=== PATIENT | male | born 1970 | race Caucasian/White ===

== ENCOUNTER → 2025-06-11 | Outpatient (CLI) | payer OTHER, SELFPAY ==
--- NOTE | 2025-06-11 14:01 | PCM.CR.HP2 ---
CR - History & Physical General Arrival date:: 06/11/25 Arrival time:: 14:01 Date of Referral:: 06/08/25 Date of CR Evaluation:: 06/11/25 Referring Physician: Dr. Avelino Ulloa Primary Diagnosis: S/P AVR History of Present Cardiac Event Onset Date Heart valve replacement or repair:: Yes (04/28/25 onset) Sleep Disorder Evaluation Hx of Sleep Apnea: No Do you snore loudly (louder than talking or can be heard through closed doors)?: No Do you often feel tired/ fatigued/ sleepy during daytime?: No Has anyone observed you stop breathing during sleep?: No History of Hypertension (for STOP score): Yes STOP Results: Negative Advanced Directives Advanced Directives Do you have a Healthcare Power of [employer] Architect?: No Living Will: No Advance Directives Information Provided: No Advance Directives on File: No DNR Order?:: No Past Medical History Covid-19 Screening Physicial Symptoms Other Clinical Concerns Exposure Risk Pertinent Comorbidities Has a serious heart condition:: Yes Social History Smoking History Smoking Status: Never smoker Alcohol Use Alcohol Usage: No Substance Abuse Hx Substance Use: No Occupation Occupation (List type of work in comments):: Employed Hours worked per day:: 9 Social Environment Status Marital Status: Current Living Arrangements Living Environment:: Family Children How many children do you have?: 12 Do any of your children live nearby?: Yes Safety Do you feel safe in your surroundings?: Yes Assistance Do you need any assistance at home?: no Review of Systems Review of Systems Hints Review of Present Symptoms: Reports Shortness of Breath with Exertion, Fatigue, Appetite - Normal and Appetite - Special Diet; Denies Shortness of Breath at Rest, PVD, Operative Discomfort, Angina, Wound Healing, Dizziness/Lightheadedness, Heart Arrhythmia/Irregularities, Sleep - Normal or Sexual Changes Pain Is Patient Pain Free?: Yes Risk Factor Assessment Chief Complaint Chief Complaint: S/P AVR Vital Signs Pulse Ox: 98 Blood Pressure: 160/90 Pulse Pulse Rate: 77 Pulse Rhythm: Regular Hypertension Blood Pressure Sitting - Right Arm: 160/90 Obesity Height: 5 ft 10 in Weight:: 259 lb Weight in Pounds: 259.0 lbs Body Mass Index (BMI): 37.1 Physical Inactivity Physical Inactivity: Reg Exercise 30 min/day Risk Stratification Risk Guidelines: Moderate Risk: Risk Factor for Smoking, Risk Factor for Dyslipidemia, Risk Factor for Diabetes, Risk Factor for Sedentary Lifestyle and Risk Factor for Depression and Highest Risk: Risk Factor for Obesity and Risk Factor for Hypertension For Smoking Smoking Risk Guidelines For Dyslipidemia Dyslipidemia Risk Guidelines For Diabetes Mellitus Diabetes Risk Guidelines For Obesity/Overweight Obesity/Overweight Risk Guidelines For Hypertension Hypertension Risk Guidelines For Sedentary Lifestyle Sedentary Lifestyle Risk Guidelines For Depression Depression Risk Guidelines Motivation Motivation to Participate On a scale of 1 to 10, how prepared are you to commit to attending program?: 8 What do you see as barriers to successfully being able to complete the program?: nothing What do you see as the benefits of succesfully completing the program? In other words, what do you hope to get out of participating in the program?: wants to be back to normal, more energy Are there issues you are dealing with that will interfere with completing the program?: no Do you have a spouse or signficant other, family or friends who will help support you to complete the program?: yes
--- NOTE | 2025-06-11 14:06 | CR.ITP_ITS ---
Diagnosis General Information Admitting Diagnosis: S/P AVR Personal Learning Style:: Audio/Visual Barriers to Learning: No Barriers Stage of change r/t lifestyle modifications:: Contemplation Gave educational material for:: Treating Heart Disease, How The Heart Works, What it means to have Heart Disease, How Coronary Artery Disease is Diagnosed, Heart Procedures, What Heart Medications Do, Risk Factors & Modifications, Livin g an Active Life, Nutrition, Emotions & Heart Disease, Stress Management & Relaxation and Sleep Disorders & Heart Disease Education/Goals Cardiac Rehabilitation Goals Personal Goals: Initial Assessment: Improve energy level, Participate in home exercise program, Get back to work, or to resume activities faster, Improve knowledge of cardiac disease and Improve muscle strength and endurance Scale for measuring improvement of personal goals Diagnosis & Disease Process Outcomes/Goals: Pt IDs own risk factors & lifestyle modifications by Session 10, Verbalizes symptoms of angina & response by session 3., Pt independently manages and Other Additional Outcomes/Goals: Plan/Interventions: Assist Pt to ID & engage in lifestyle modification to reduce CVD risk, Instruct on individual risk factors, Review symptoms of angina & keshawn rgency actions, Review secondary diagnosis & identify educational needs. and Other see comment 30 day Reassessments:: Not Met 30 day Reassessments:: Not Met 30 day Reassessments:: Not Met 30 day Reassessments:: Not Met Final Reassessments:: Not Met Safety Referral to Physical Therapy: No Referral to [facility] Case Management: No Fall Risk Assessed:: Yes Assistive Devices:: None Exercise - Initial Assessment Visit Date of Eval: 06/11/25 (initial eval ) Mets: Pre-: >3 METS for 30 minutes by discharge, >5 METS for 30 minutes by discharge, >7 METS for 30 minutes by discharge and Unable to meet goal due to: (see comment below) Physician Prescribed Exercise Modalities: Treadmill, Schwinn Airdyne AD-7, SciFit Stepper, SciFit Pro-II Ergometer and SciFit Lateral Nuclear Control Room Operator Frequency: 3x/week for 12 weeks [36 sessions] Intensity: 60-80% of age predicted maximum heart rate reserve Duration: 30 - 45 minutes Current METSs:: 3 Target Heart Rate:: 98-122 Resting Blood Pressure: 160/90 EKG Type: SR prolonged AK interval, abnormal T, minmal ST elevation, PVC's Outcomes & Goals Goals:: Verbalizes understanding of THR, RPE & goal METS by session 6, Documents in home exercise log/reports 30 min aerobic 5 day/wk by DC, Demonstrates accurate pulse taking by DC and Other additional outcome/goals: see below Intervention & Plan Exercise Program Goals: Instruct on personal THR & RPE, Instruct on MET level & personal MET goal, Show patient to take own pulse /validate performance until accurate, Instruct on home exercise and Other additional plan/int Physical Activity Home Exercise Physical Activity - Home Exercise: Safe Exercise, Warm-up, Self-monitoring, Cool-Down, Home Exercise > 30 min Daily and Sitting Time <3 hours/daily Outcomes & Goals Outcomes/Goals: Demonstrates correct Warm-up/exercise Cool-Down (S3) if = 2.5 METs, Verbalizes symptoms of exercise intolerance by Session 3 (S3), Demonstrate safe equipment use (S3) & follows exercise prescrition (6) and Other: See below Intervention & Plan Plan/Intervention: Instruct warm-up & cool-down if exercising at > 2 METs, Instruct on symptoms of exercise intolerance & actions to take, Instruct & monitor on saf, Assess intial functional capacity & safety risk and Other See below Nutrition - Initial Assessment Visit Date of Eval: 06/11/25 (initial eval ) Cholesterol/Lipids (Other Core Measures) Determine presence & major risk factors that modify LDL goal: Hypertension or hypertensive medication, Low HDL cholesterol <40 mg/dL*, Family history of premature CHD in Male < 55 years: female <65 yearsFa and Age men > 45 years; women >/= 55 years Outcomes/Goals: Pt IDs own risk factors & lifestyle modifications by Session 10, Verbalizes symptoms of angina & response by session 3., Pt independently manages and Other Additional Outcomes/Goals: Intervention/Plan: Advocate for lipid panel cholesterol medication if applicable, Instruct on personal lipid levels & lipid goals/NCEP guidelines, Instruct on cholesterol and Other additional plan/int Diabetes (Other Core Measures) Diabetes Type: Not Applicable Weight Mgt (Other Care) Height: 5 ft 10 in Weight:: 259 lb BMI: 37.1 Diagnosis Overweight/Obesity BMI> 30% ICD-10 E66: No Diagnosis High BMI/Morbid Obesity BMI> 35% ICD-10 Z68: No Outcomes/Goals: Pt sets, maintains & shows weight loss goal & trend during rehab and Other additional outcomes/goals Intervention/Plan: Instruct on ideal BMI & set weight loss goal w/patient, Assist pt to ID & incorporate diet changes for weight loss by S9, Refer to Structured Weight Loss program as appropriate, Encourage goal of using 250-300d janna per session for weight loss and Other additional plan/interventions Healthy Eating Habits Will attend diet classes:: Yes Outcomes/Goals:: Consume diet rich in vegs,fruits,whole grain/high fiber,fish,lean meat, Limit sat/trans fats,cholesterol & added salts & sugars and Other additional outcome/goals: Intervention/Plan:: Assess current eating habits and Other Additional plan/interventions Education Gave educational materials for:: Signs & symptoms of hypoglycemia, Signs & symptoms of hyperglycemia, Relate diabetes to coronary artery disease and Healthy eating Core - Initial Assessment Visit Date of Eval: 06/11/25 (initial eval) Medication Compliance Preventative Medication(s):: Aspirin, Statin/lipid and Warfarin/Coumadin H/O mental health issues: depression, anxiety, or addiction?: No Doesn?t believe in the benefits of treatment?: No Believes medications are unnecessary or harmful?: No Has a concern about medication side effects?: No Expresses concern over the cost of medications?: No Outcomes/Goals: Verbalizes medications,desired effect & common side effects @ DC, Pt self-reports following medication regimen, Keeps card in wallet w/medications listed by DC and Other additional outcome/goals: Interventions/plans: Instruct on medication effects & side effects, Review medication list w/patient every two weeks, Instruct importance of taking meds as ordered & assist problem solving and Other additional Tobacco Use Tobacco Use: Non-smoker Hypertension Hypertension Diagnosis:: Hypertension ICD-10 I10 Resting Blood Pressure:: 160/90 (Pt is not on meds for HTN) [place] [employer] Hypertension Guidelines Outcomes/Goals: Able to verbalize/achieve optimal blood pressure <130/80, Incorporates diet changes & exercise for blood pressure control by DC and Other additional outcomes/goals Interventions/plan: Instruct on optimal blood pressure, hypertension & medications, Instruct on effects of sodium, alcohol, stress, exercise &hypertension and Other additional plan/interventions Tobacco Cessation Referral Smoking Cessation Referral:: No Individual Education/Counseling:: No Education Schedule Given:: Yes Psychosocial - Initial Assess VIsit Date of Eval: 06/11/25 (initial eval ) History of previous Mental disease:: No Target Goals Target Goals Psychosocial Test Tool Used:: PHQ-9 Questionnaire phq-9 Severity See PHQ-9 Score: 3 Referral to Behavioral Health PS - Interventions: Yes: Attend Stress Management Classes Outcomes/Goals: See list Psychosocial Outcomes/Goals:: ID's personal stressors & 2 strategies to manage stress by discharge and Other Additional outcome/goals: Intervention/Plan: See List Interventions/Plan:: Assess stressors,coping strategies & signs of derpression on admission, Instruct/assist pt to develop coping & personal stress Mgt strategies, Refer to Behavioral Health if appropriate, Refer to Physician if appropriate, Instruct patient to recognize signs & symptoms of depression, Instruct patient to recog and Other additional plan/intervention Comments:: Pt denies any psychosocial issues. Patient Health Questionnaire PHQ-9 Screening Initial Assessment: 1. Little interest or pleasure in doing things: Not at all 2. Feeling down, depressed, or hopeless: Not at all 3. Trouble falling or staying asleep, or sleeping too much: More than half the days 4. Feeling tired or having little energy: Several days 5. Poor appetite or overeating: Not at all 6. Feeling bad about yourself -- or that you are a failure or have let yourself or your family down: Not at all 7. Trouble concentrating on things, such as reading the newspaper or watching television: Not at all 8. Moving or speaking so slowly that other people could have noticed. Or the opposite - being so fidgety or restless that you have been moving around a lot more than usual: Not at all 9. Thoughts that you would be better off , or of hurting yourself in some way: Not at all How difficult have these problems made it for you to do your work, take care of things at home, or get along with other people?: Not difficult at all Total Score: 3 MELQUIADES-Q SV Test Statements CAD is a disease of the arteries in the heart: I Don't Know Examples of risk factors for heart disease: True Angina is chest pain or discomfort: I Don't Know The benefits of resistance training include: True Eating more meat and dairy products: I Don't Know Anti-platelet medications such as aspirin are important: True The only effective way to manage stress: I Don't Know An exercise warm-up slowly increases heart rate: True Prepared, processed foods usually have high sodium: True Depression is common after a heart attack: I Don't Know The statin medications lower cholesterol: I Don't Know To control blood pressure, lower the amount of sodium: I Don't Know If someone gets chest discomfort during walking: False Transfats are partially hydrogenated vegetable oils: I Don't Know Sleep apnea that is not treated increases the risk: True To control cholesterol, one should become a vegetarian: False Someone knows if he/she is exercising at the right level: I Don't Know Diabetes cannot be prevented with exercise & health eating: I Don't Know Stress is a large risk for heart attack: I Don't Know A diet that can help lower blood pressure is rich in: True Total Score Total Correct Responses: 8 Self-Efficacy 6-Item Scale Initial Assessment: We would like to know how confident you are in doing certain activities. Please select your confidence level for: Fatigue Select Number: 3 Physical Discomfort or Pain Select Number: 5 Emotional Distress Select Number: 5 Other Symptoms or Health Problems Select Number: 5 Different Tasks and Activities Select Number: 6 Medication Select Number: 6 Total Score:: 5 Nutrition Survey Nutrition Survey Instructions Scoring Instructions Nutrition Survey Initial: Have you lost >10 lbs over the past 2 months without trying?: No Are you following a special diet at home for diabetes, low fat, or low salt?: No Are you interested in meeting with a dietitian for help understanding your diet?: No Do you eat less than 3 meals a day?: No Do you eat fatty meats (vanegas, sausage, ribs, etc), fried foods, desserts, large amounts of salad dressings, margarine, butter, or cheese most days?: Yes Do you have food allergies? [Enter types in comment field]: No Do you eat in restaurants more than 3 times a week?: No Do you season food with salt, seasoning salt, or garlic salt?: Yes Do you used canned, boxed, frozen meals, or soups, seasoning packets?: Yes Total Score:: 3 Exercise - 30-day Assessment Physician Prescribed Exercise Modalities: Treadmill, Carroll Rodriguez AD-7, SciFit Stepper, SciFit Pro-II Ergometer and SciFit Lateral [place] Exercise - 60-day Assessment Physician Prescribed Exercise Modalities: Treadmill, Maryinn Airdyne AD-7, SciFit Stepper, SciFit Pro-II Ergometer and SciFit Lateral [place] Exercise - 90-day Assessment Physician Prescribed Exercise Modalities: Treadmill, Schwinn Airdyne AD-7, SciFit Stepper, SciFit Pro-II Ergometer and SciFit Lateral [place] Exercise - Final/Discharge Physician Prescribed Exercise Modalities: Treadmill, Schwinn Airdyne AD-7, SciFit Stepper, SciFit Pro-II Ergometer and SciFit Lateral Nuclear Control Room Operator Frequency: 3x/week for 12 weeks [36 sessions] Intensity: 60-80% of age predicted maximum heart rate reserve Current METSs:: 3 Target Heart Rate:: 98-122 Nutrition - 30-Day Assessment Weight Mgt (Other Care) Height: 5 ft 10 in Weight:: 259 lb BMI: 37.1 Nutrition - 60-Day Assessment Weight Mgt (Other Care) Height: 5 ft 10 in Weight:: 259 lb BMI: 37.1 Core - Final Assessment Hypertension Resting Blood Pressure:: 160/90 (Pt is not on meds for HTN) [place] [employer] Hypertension Guidelines Core - 60-Day Assessment Hypertension Resting Blood Pressure:: 160/90 (Pt is not on meds for HTN) [place] [employer] Hypertension Guidelines Psychosocial - 30-Day Assess Target Goals Target Goals Referral to Behavioral Health PS - Interventions: Yes: Attend Stress Management Classes Psychosocial - 60-Day Assess Target Goals Target Goals Referral to Behavioral Health PS - Interventions: Yes: Attend Stress Management Classes Psychosocial - 90-Day Assess Target Goals Target Goals Referral to Behavioral Health PS - Interventions: Yes: Attend Stress Management Classes Psychosocial - Final Assessmen Target Goals Target Goals Psychosocial Test phq-9 Severity See PHQ-9 Score: 3 Referral to Behavioral Health PS - Interventions: Yes: Attend Stress Management Classes Nutrition - 90-Day Assessment Weight Mgt (Other Care) Height: 5 ft 10 in Weight:: 259 lb BMI: 37.1 Nutrition - Final Assessment Weight Mgt (Other Care) Height: 5 ft 10 in Weight:: 259 lb BMI: 37.1
[2025-06-11 14:23] VITALS: BP 160/90; PULSE 77; O2SAT 98
[2025-06-11 15:04] VITALS: BP 160/90; BMI 37.1
[2025-06-11 15:05] VITALS: BMI 37.1
== END | disposition home or self-care (01) ==
PROVIDERS: PCP Physician Assistant
DX: Z95.2 Presence of prosthetic heart valve (principal)

== ENCOUNTER 2025-06-28 14:15 | Outpatient (RCR) | payer OTHER, SELFPAY ==
[2025-06-11 15:04] VITALS: BMI 37.1
== END 2025-07-01 23:59 ==
LOC: CR 14:15
PROVIDERS: PCP Physician Assistant
DX: Z95.2 Presence of prosthetic heart valve (principal)
CPT/HCPCS: 93798

== ENCOUNTER → 2025-08-17 | Outpatient (CLI) | payer SELFPAY, OTHER ==
[2025-06-11 15:04] VITALS: BMI 37.1
--- NOTE | 2025-08-17 07:05 | ECHOD_ITS ---
Reason For Study Reason For Study: CAD/ASHD Procedure This was a 2D Doppler, Color Flow transthoracic echocardiogram. Exam performed in department. Left Ventricle Normal LV size. Mild concentric left ventricular hypertrophy. Left ventricular systolic function is normal. The left ventricular ejection fraction is 55 %. Stage 1 diastolic dysfunction. No regional wall motion abnormalities noted. Right Ventricle Normal RV size. Normal systolic function. Atria The left atrium is mildly enlarged. Normal right atrium. Mitral Valve The mitral valve is structurally normal. No prolapse or stenosis seen. Mild (1+) mitral valve insufficiency. Tricuspid Valve Normal tricuspid valve. Trivial tricuspid valve insufficiency. Unable to estimate RV systolic pressure due to insufficient tricuspid regurgitant envelope. Aortic Valve Peak aortic valve gradient 16 mmHg. Mean aortic valve gradient 9 mmHg. Trivial aortic valve insufficiency. Stable appearing mechanical aortic valve apparatus. Pulmonic Valve Normal pulmonic valve. Great Vessels Normal sized aortic root. Pericardium/Pleural No pericardial effusion. MMode/2D Measurements & Calculations LVIDd: 5.3 cm IVSd: 1.3 cm LVOT diam: 2.1 cm LVIDs: 4.1 cm LVPWd: 1.3 cm LVOT area: 3.6 cm2 RVDd: 3.5 cm FS: 22.7 % Ao root diam: 3.5 cm LAV(MOD-bp): 84.7 ml LVAd ap4: 35.0 cm2 LAV(MOD-bp) Indexed: 36.3 ml/m2 LVLd ap4: 8.4 cm LAV(MOD-sp2): 86.8 ml EDV(MOD-sp4): 121.2 ml LAV(MOD-sp4): 83.6 ml EDV(sp4-el): 123.5 ml LVAs ap4: 22.9 cm2 LVLs ap4: 7.8 cm ESV(MOD-sp4): 59.2 ml ESV(sp4-el): 57.5 ml EF(MOD-sp4): 51.2 % EF(sp4-el): 53.4 % LVAd ap2: 27.9 cm2 SV(MOD-sp4): 62.0 ml SV(MOD-sp2): 43.2 ml LVLd ap2: 8.4 cm SI(MOD-sp4): 26.6 ml/m2 SI(MOD-sp2): 18.5 ml/m2 EDV(MOD-sp2): 79.4 ml EDV(sp2-el): 78.7 ml LVAs ap2: 17.3 cm2 LVLs ap2: 7.1 cm ESV(MOD-sp2): 36.2 ml ESV(sp2-el): 35.8 ml EF(MOD-sp2): 54.4 % SV(sp4-el): 66.0 ml LA dimension(2D): 4.3 cm LA A4 area: 25.1 cm2 RA A4 area: 13.8 cm2 TAPSE: 1.8 cm Time Measurements MV dec time: 0.16 sec Doppler Measurements & Calculations MV E max forest: 83.7 cm/sec Lat Peak E' Forest: 16.4 cm/sec Med Peak E' Forest: 8.2 cm/sec MV A max forest: 50.1 cm/sec E/E' lat: 5.1 E/E' med: 10.2 MV E/A: 1.7 MV V2 max: 96.0 cm/sec MV P1/2t max forest: 97.1 cm/sec Ao V2 max: 199.6 cm/sec MV max P.7 mmHg MV P1/2t: 57.3 msec Ao max P.0 mmHg MV V2 mean: 44.9 cm/sec Ao V2 mean: 137.3 cm/sec MV mean P.0 mmHg MV dec slope: 496.0 cm/sec2 Ao mean P.5 mmHg MV V2 VTI: 24.1 cm MVA(P1/2t): 3.8 cm2 Ao V2 VTI: 38.2 cm AV (velocity ratio): 0.62 MVA(VTI): 3.5 cm2 LITO(I,D): 2.2 cm2 LITO(V,D): 1.8 cm2 LV V1 max: 99.3 cm/sec SV(LVOT): 84.8 ml PA V2 max: 130.3 cm/sec LV V1 max P.0 mmHg PA V2 mean: 93.8 cm/sec LV V1 mean P.3 mmHg LV V1 mean: 71.1 cm/sec LV V1 VTI: 23.8 cm ECHO/Echo Complete Interpretation Summary The left ventricular ejection fraction is 55 %. Stage 1 diastolic dysfunction. Mild concentric left ventricular hypertrophy. The left atrium is mildly enlarged. Mild (1+) mitral valve insufficiency. Stable appearing mechanical aortic valve apparatus. Ordering Physician: Yony Soto Referring Physician: Asher Lewis Performed By: Rachel Castillo, LOUANN, RVT
--- OUTSIDE RECORDS SUMMARY | 2025-08-17 07:24 | XMS RPT_ITS | CCD ---
Author Organization [facility] CliniSysd Care Team Providers Care [place]ian Blind Worker Name Role Phone Asher Jesus PA-C Unavailable Asher Jesus PA-C Unavailable Gogoi (scribe), Hemanta Unavailable Unavaila Kanu Burns MD Unavailable hPilip CARVALHON, Nohelia Unavailable Unavailable Mitra BILLER, Mihaela Unavailable Unavailable Richert UPPER CASER, Apple L Unavailable Unavailab le Flor UPPER CASER, Richelle M Unavailable Unavailab le Scottie UPPER CASER, Stephany Sandoval Unavailable Unavailab le Devin UPPER CASER, Saadia Reid Unavailable Unavaila ble Unavailable Unavailable Unavailable Primary Care Provider UnavailTrina Arenas Unavailable Unavailable Asher Jesus PA-C Primary Care Provider KANU HALEY Consulting Unavailable NELL DUKES DPM Admitting Unavailable NELL DUKES DPM Primary Care Unavailable NELL DUKES DPM Attending Unavailable PROVIDER, UNKNOWN Consulting Unavailable PROVIDER, UNKNOWN Consulting Unavailable PROVIDER, UNKNOWN Consulting Unavailable Kojo PHAM Admitting Unavailable Kojo PHAM Primary Care Unavailable Kojo PHAM Attending Unavailable SHILPA JACKSON MD Admitting Unavailab SHILPA Tsai MD Primary Care Unavailab SHILPA Tsai MD Attending Unavailab CHAD Loyola DO Admitting Unavailable CHAD ROSS DO Primary Care Unavailable CHAD ROSS DO Attending Unavailable Asher Coburn Primary Care Provider PATRICIA ULLOA Attending Provider PATRICIA ULLOA Referring Provider Flavia Solorzano Unavailable Unavailabl e Evert UPPER CASER, Neli Unavailable JADIEL WELLINGTON Admitting Unavailable JADIEL WELLINGTON Attending Unavailable NONE, PCP Referring Unavailable ANN MARIE, LUKE Primary Care Unavailable PATRICIA ULLOA Admitting Unavailable PATRICIA ULLOA Attending Unavailable DISHA MATHEW Unavailable ANN MARIE, LUKE Primary Care Unavailable ZACHARIAH PHAM Attending Unavailable JAYY FRANCIS Attending Unavailable ANN MARIE, LUKE Primary Care Unavailable SHILPA JACKSON Attending Unavailable CHAD HOLCOMB Referring Unavailable ANN MARIE, LUKE Primary Care Unavailable ANN MARIE, LUKE Primary Care Unavailable ZACHARIAH PHAM Attending Unavailable SHILPA JACKSON Admitting Unavailable BITTENBENDERSHILPA Attending Unavailable ANN MARIE, LUKE Primary Care Unavailable ANN MARIE, LUKE Primary Care Unavailable PATRICIA ULLOA Attending Unavailable ANN MARIE, LUKE Primary Care Unavailable PATRICIA ULLOA Attending Unavailable ANN MARIE, LUKE Primary Care Unavailable ANN MARIE, LUKE Primary Care Unavailable PATRICIA ULLOA Referring Unavailable ANN MARIE, LUKE Primary Care Unavailable PATRICIA ULLOA Attending Unavailable ANN MARIE, LUKE Primary Care Unavailable JACEK ALVARADO Attending Unavailable O'SHELL, ADIA Attending Unavailable O'SHELL, ADIA Referring Unavailable ANN MARIE, LUKE Primary Care Unavailable ANN MARIE, LUKE Primary Care Unavailable NELL CARLOS Referring Unavailable ANN MARIE, LUKE Primary Care Unavailable JACEK ALVARADO Attending Unavailable ZACHARIAH PHAM Attending Unavailable ANN MARIE, LUKE Primary Care Unavailable ANN MARIE, LUKE Primary Care Unavailable ZACHARIAH PHAM Attending Unavailable ANN MARIE, LUKE Primary Care Unavailable ZACHARIAH PHAM Attending Unavailable ZACHARIAH PHAM Referring Unavailable ANN MARIE, LUKE Primary Care Unavailable ZACHARIAH PHAM Attending Unavailable Brenda MALHOTRA, Emma Aguilar Unavailable Unavaila ble Asher Coburn Primary Care Provider [phone] Asher Coburn Referring Provider Dr. Yony Soto MD Attending Provider Yony Soto Attending Unavailable Ann Marie, Luparish Referring Unavailable Ann Marie, Luke Primary Care Unavailable YING, ISSA Referring Unavailable YING ISSA Attending Unavailable Ann Marie, Luke Primary Care Unavailable YING, ISSA Referring Unavailable ISSA HE Attending Unavailable Asher Jesus Primary Care Unavailable Asher Jesus Primary Care Unavailable Yony Soto Referring Unavailable Yony Soto Attending Unavailable ISSA HE Referring Unavailable ISSA HE Attending Unavailable Asher Jesus Primary Care Unavailable Allergies Allergy Classification Reported Allergen(s) Allergy Type Date of Onset Reaction(s) Facility (19 sources) HYDROcodone Drug Allergy 04-21-2025 [facility] Medications Current Medications Medication Drug Class(es) Dates Sig (Normalized) Sig (Original) acetaminophen 500 mg oral tablet (13 sources) Start: 05-03-2025 End: 05-18-2025 take 2 tablets by mouth every eight hours as needed for pain acetaminophen (Tylenol) 500 MG tablet Take 2 tablets (1,000 mg) by mouth every 8 hours as needed for moderate pain (4-6) for up to 10 days. 05/03/2025 05/18/2025 Active Start: 04-28-2025 End: 05-03-2025 take 1 tablet by mouth every eight hours 1,000 mg, Oral, Every 8 hours, First dose on Sat04/28/25 at 1315, [facility] Start: 03-04-2025 End: 03-06-2025 take 1 tablet by mouth every six hours as needed for pain and fever acetaminophen (Tylenol) tablet 650 mg aspirin 81 mg delayed release oral tablet (20 sources) Platelet Aggregation Inhibitor, Nonsteroidal Anti-inflammatory Drug Start: 07-19-2025 take 1 tablet by mouth once daily Aspirin (Adult Aspirin Regimen) 81 mg tablet,delayed release (DR/EC) Active 81 mg PO daily July 19, 2025 12:00am Start: 04-29-2025 End: 05-03-2025 take 81 mg by mouth once daily 81 mg, Oral, Daily, Fir st dose on Sat04/29/25 at 0900, Recovery [facility], Do not crush, chew, or split. Start: 03-05-2025 End: 03-07-2026 aspirin 81 MG chewable table t Chew 1 tablet (81 mg) daily. Do not start before March 07, 2025. 30 tablet 11 03/07/2025 03/07/2026 Active take 1 mg by mouth once daily As pirin 81 MG Oral Tablet ; daily (81 MG) atorvastatin 40 mg oral tablet (20 sources) HMG-CoA Reductase Inhibitor Start: 05-06-2025 End: 08-04-2025 take 1 tablet by mouth once daily atorvastatin (Lipitor) 80 MG tablet Take 1 tablet (80 mg) by mouth daily. 30 tablet 2 05/06/2025 08/04/2025 Active Start: 05-03-2025 End: 05-18-2025 take 2 tablets by mouth once daily atorvastatin (Lipitor) 40 MG tablet Take 2 tablets (80 mg) by mouth daily. 05/03/2025 05/18/2025 Discontinued (Therapy completed) Start: 04-29-2025 End: 05-03-2025 take 80 mg by mouth once daily 80 mg, Oral, Nightly, F irst dose on Marlys 04/29/25 at 2100, [facility] On Unit Start: 03-04-2025 End: 03-07-2026 take 1 tablet by mouth once daily Atorvastatin (Lipitor) 40 mg tablet Active 40 mg PO daily July 19, 2025 12:00am hydroCHLOROthiazide 12.5 mg / losartan potassium 50 mg oral tablet (1 source) Thiazide Diuretic, Angiotensin 2 Receptor Caesar Start: 07-27-2025 Losartan-Hydrochlorothiazide 50-12.5 mg tablet Active 1 {tbl} PO daily 30 July 27, 2025 12:00am melatonin 5 mg oral tablet (14 sources) Start: 05-15-2025 End: 07-14-2025 take 1 tablet by mouth once daily as needed melatonin 5 MG tablet Take 1 tablet (5 mg) by mouth Nightly as needed (trouble sleeping). 30 tablet 1 05/15/2025 07/14/2025 Active Start: 04-29-2025 End: 05-03-2025 take 5 mg by mouth once daily 5 mg, Oral, Nightly, Fir st dose (after last modification) on Marlys 04/29/25 at 2100 warfarin sodium 3 mg oral tablet (20 sources) Vitamin K Antagonist Start: 07-27-2025 take 1 mg by mouth once daily Warfarin 3 mg tablet Active mg PO DAILY July 27, 2025 12:00am Start: 05-18-2025 warfarin (Coum boyd) 3 MG tablet Take as directed by [facility] (105 tablets= 90 day supply). Current dose: 4.5 mg every Sat, Sat; 3 mg all other days 105 tablet 1 05/18/2025 Active Start: 05-03-2025 End: 05-03-2025 3 mg, Oral, Once Warfarin, O n 05/03/25 at 1700, For 1 dose Start: 05-03-2025 End: 05-18-2025 warfarin (Coumadin) 3 MG tab let Take as directed per After Visit Summary. 30 tablet 05/03/2025 11:08 AM EDT 05/03/2025 05/18/2025 Discontinued (Reorder) Start: 05-02-2025 3 mg, Oral, On ce Warfarin, On 05/02/25 at 1700, For 1 dose Start: 05-01-2025 5 mg, Oral, On ce Warfarin, On 05/01/25 at 1700, For 1 dose Start: 04-30-2025 3 mg, Oral, On ce Warfarin, On 04/30/25 at 1700, For 1 dose Start: 04-29-2025 3 mg, Oral, On ce Warfarin, On Marlys 04/29/25 at 1700, For 1 dose, Recovery [facility] On Unit Completed/Discontinued Medications Medication Drug Class(es) Dates Sig (Normalized) Sig (Original) 20 ml albumin human, fci 250 mg/ml injection (4 sources) Human Serum Albumin Start: 04-28-2025 End: 04-29-2025 25 g, IntraVENous, at 400 mL/hr, Once, On 04/28/25 at 1715, For 1 dose, Infusion rate depends on indication and clinical situation. In emergencies, may administer as rapidly as necessary to improve clinical condition. After initial volume replacement: 25%: Do not exceed 1 mL/minute (60 mL/hr) in patients with normal plasma volume; 2 to 3 mL/minute (120 to 180 mL/hr) in patients with hypoproteinemia Start: 04-28-2025 End: 05-03-2025 albuterol 0.833 mg/ml / ipratropium bromide 0.167 mg/ml inhalation solution (2 sources) Anticholinergic, beta2-Adrenergic Agonist Start: 04-28-2025 End: 05-03-2025 ALPRAZolam 0.25 mg disintegrating oral tablet (2 sources) Benzodiazepine Start: 04-28-2025 End: 04-28-2025 0.25 mg, Oral, PRN, anxiety, Starting on Sat04/28/25 at 0540, For 1 dose, Preprocedure amiodarone hydrochloride 200 mg oral tablet (20 sources) Antiarrhythmic Start: 05-03-2025 End: 07-16-2025 take 2 tablets by mouth twice daily, then take 1 tablet by mouth once daily amiodarone (Pacerone) 200 MG tablet Take 2 tablets (400 mg) by mouth 2 times daily for 14 days, THEN 1 tablet (200 mg) daily. 116 tablet 05/03/2025 11:08 AM EDT 05/03/2025 06/18/2025 Discontinued Start: 05-02-2025 End: 05-03-2025 take 400 mg by mouth twice daily 400 mg, Oral, 2 times daily, First dose on Sat05/02/25 at 2100, For 14 days Start: 04-30-2025 End: 05-02-2025 0.5 mg/min (16.6667 mL/hr, r ounded to 16.67 mL/hr), IntraVENous, Continuous, Starting on Sat04/30/25 at 0800, Use in-line filter. Use in-line filter. Give through central venous catheter whenever available. Premix Start: 04-30-2025 End: 04-30-2025 150 mg, IntraVENous, Adminis ter over 10 Minutes, Once, On Sat04/30/25 at 0800, For 1 dose, Use in-line filter. Administer through central venous catheter whenever available. Premix amoxicillin 500 mg oral capsule (16 sources) Penicillin-class Antibacterial Start: 12-14-2019 End: 12-24-2019 take 1 capsule by mouth three times daily Amoxicillin 500 MG Oral Capsule ; 1 (one) Capsule three times daily for 10 days Quantity: 30 {Capsule} Refills: 0 Ordered: 14-Dec-2019 MD Kanu Haley Start: 14-Dec-2019 End: 24-Dec-2019 Status: Inactive bisacodyl 10 mg rectal suppository (2 sources) Stimulant Laxative Start: 03-04-2025 End: 03-06-2025 take 10 mg rectal route every twenty-four hours as needed for constipation 10 mg, Rectal, Daily PRN, constipation, Starting on Marlys 4/3/25 at 0955, 2nd line for treatment of constipation - give scheduled (in addition to 1st line agent) if no bowel movement in past 48 hours calcium chloride 0.0014 meq/ml / potassium chloride 0.004 meq/ml / sodium chloride 0.103 meq/ml / sodium lactate 0.028 meq/ml injectable solution (6 sources) Start: 04-28-2025 End: 04-28-2025 500 mL, IntraVENous, at 250 mL/hr, Administer over 2 Hours, Once, On Sat04/28/25 at 1715, For 1 dose Start: 04-28-2025 End: 05-03-2025 100 ml calcium gluconate 20 mg/ml injection (2 sources) Start: 04-28-2025 End: 05-03-2025 ceFAZolin (Ancef) 2,000 mg in sodium chloride 0.9 % 100 mL IVPB (2 sources) Start: 04-28-2025 End: 04-30-2025 take 2000 mg intravenously every eight hours 2,000 mg, IntraVENous, at 200 mL/hr, Administer over 30 Minutes, Every 8 hours, First dose on Sat04/28/25 at 2000, For 5 doses, Recovery [facility] On Unit, Mini-Bag Plus bag, Suspected Indication (Select all that apply): Surgical Prophylaxis Chlorhexidine (10 sources) Start: 04-29-2025 End: 05-03-2025 apply 1 dose topically once daily Topical, Daily, First dose on Sat04/29/25 at 1400, Recovery [facility] On Unit Start: 04-28-2025 End: 04-29-2025 take 15 mL by mouth twice daily 15 mL, Mouth/Throat, 2 times daily, First dose on Sat04/28/25 at 1315, For 7 days, Recovery [facility] On Unit, Rinse and spit. Do not swallow. Start: 04-28-2025 End: 04-28-2025 15 mL, Mouth/Throat, Once, O n Sat04/28/25 at 0545, For 1 dose, Preprocedure, Rinse and spit. Do not swallow. Start: 04-16-2025 End: 04-16-2025 chlorhexidine (Peridex) 0.12 % solution Use 15 mL in the mouth or throat Once for 1 dose. Swish for 30 seconds and spit out the night before surgery. Do not swallow. 15 mL 04/16/2025 04/16/2025 Active End: 05-03-2025 take 15 mL by mouth once chlorhexidine (Peridex) 0.12 % solution Use 15 mL in the mouth or throat 1 time. 05/03/2025 Discontinued (Stop taking at discharge) cholecalciferol 9.52 unt/ml / glucose 357 mg/ml oral gel (2 sources) Vitamin D Start: 04-28-2025 End: 05-03-2025 clopidogrel 75 mg oral tablet (20 sources) P2Y12 Platelet Inhibitor Start: 07-19-2025 End: 07-27-2025 take 1 tablet by mouth once daily Clopidogrel 75 mg tablet Discontinued 75 mg PO daily July 19, 2025 12:00am July 27, 2025 2:47pm Start: 03-05-2025 End: 04-01-2025 clopidogrel (Plavix) 75 MG t ablet Take 1 tablet (75 mg) by mouth daily for 19 days. Do not start before March 07, 2025. 19 tablet 03/07/2025 04/01/2025 Discontinued docusate sodium 50 mg / sennosides, fci 8.6 mg oral tablet (2 sources) Start: 04-28-2025 End: 05-03-2025 take 2 tablets by mouth once daily for constipation 2 tablet, Oral, Nightly, First dose on Sat04/28/25 at 2100, Recovery [facility] On Unit, Bowel Regimen - for prevention of constipation. 0.4 ml enoxaparin sodium 100 mg/ml prefilled syringe (4 sources) Low Molecular Weight Heparin Start: 04-30-2025 End: 05-03-2025 inject 40 mg by subcutaneous injection every twenty-four hours 40 mg, SubCUTAneous, Every 24 hours scheduled (Daily), First dose on Sat04/30/25 at 0900, Indication of Use: Prophylaxis-DVT/PE, Indications: Prophylaxis of Venous Thromboembolism Start: 03-05-2025 End: 03-06-2025 inject 40 mg by subcutaneous injection every twenty-four hours 40 mg, SubCUTAneous, Every 24 hours scheduled (Daily), First dose on Sat03/05/25 at 1115, Indication of Use: Prophylaxis-DVT/PE, Indications: Prophylaxis of Venous Thromboembolism furosemide 40 mg oral tablet (12 sources) Loop Diuretic Start: 05-03-2025 End: 05-18-2025 take 1 tablet by mouth once daily furosemide (Lasix) 40 MG tablet Take 1 tablet (40 mg) by mouth daily for 5 days. 5 tablet 05/03/2025 11:08 AM EDT 05/03/2025 05/18/2025 Discontinued (Therapy completed) Start: 05-01-2025 End: 05-03-2025 40 mg, IntraVENous, Daily, F irst dose on 05/01/25 at 0930 glucagon (rdna) 1 mg injecti on (2 sources) Antihypoglycemic Agent Start: 04-28-2025 End: 05-03-2025 50 ml glucose 50 mg/ml injec tion (4 sources) Start: 04-28-2025 End: 05-03-2025 Start: 04-28-2025 End: 05-03-2025 1 ml hydrALAZINE hydrochloride 20 mg/ml injection (2 sources) Arteriolar Vasodilator Start: 03-04-2025 End: 03-06-2025 10 mg, IntraVENous, Every 1 hour PRN, high blood pressure, Starting on Marlys 03/04/25 at 0956, During or Post thrombolytic agent administration: For SBP GREATER than 180 or DBP GREATER than 105. Give over 2 minutes. Second line. hydroCHLOROthiazide 12.5 mg oral tablet (20 sources) Thiazide Diuretic Start: 07-10-2021 End: 03-11-2025 hydroCHLOROthiazide 12.5 mg tablet ; 1 (one) Tablet daily in the morning for 0 days Quantity: 90 {Tablet} Refills: 3 Ordered: 11-Mar-2025 CAROLEE Villa Start: 10-Jul-2021 End: 11-Mar-2025 Status: Inactive Comments: future fill Start: 08-30-2011 End: 09-18-2013 take 1 tablet by mouth once daily HYDROCHLOROTHIAZIDE, 25MG (Oral Tablet) ; 1 Tablet daily for 0 days Quantity: 90 {Tablet} Refills: 1 Ordered: 18-Sep-2013 BLANCA Beltran Start: 30-Aug-2011 End: 18-Sep-2013 Status: Inactive Comment on above: future fill 100 ml insulin, regular, human 1 unt/ml injection (2 sources) Insulin Start: End: take 0.5-50 [IU] intravenously every hour, then take 0.5-50 mL intravenously every hour 0.5-50 Units/hr (0.5-50 mL/hr), IntraVENous, Continuous, Starting on Sat04/28/25 at 1315, Recovery [facility] On Unit, As guided by calculator flowsheet Low target: 120 High target: 160 Hold insulin infusion if BS labetalol hydrochloride 5 mg/ml injectable solution (2 sources) beta-Adrenergic Caesar Start: End: 10 mg, IntraVENous, Every 10 min PRN, high blood pressure, Starting on Marlys 03/04/25 at 0956, During or Post thrombolytic agent administration: For SBP GREATER than 180 or DBP GREATER than 105. Give over 1-2 minutes. If HR LESS than 65 use second option, hydralazine order. lidocaine 0.04 mg/mg medicated patch (2 sources) Antiarrhythmic, Amide Local Anesthetic Start: End: 1 patch, Topical, Administer over 12 Hours, Daily, First dose on Sat04/28/25 at 1315, Recovery & On Unit, Cut in half and place on both sides of the incision. Patch may remain in place for up to 12 hours in any 24 hour period. lisinopril 20 mg oral tablet (16 sources) Angiotensin Converting Enzyme Inhibitor Start: End: take 1 tablet by mouth once daily in the evening Lisinopril 20 MG Oral Tablet ; 1 (one) Tablet daily in the evening for 0 days Quantity: 90 {Tablet} Refills: 3 Ordered: 27-Apr-2021 BLANCA Palacios Start: 30-Sep-2020 End: 27-Apr-2021 Status: Discontinued LORazepam 0.5 mg oral tablet (4 sources) Benzodiazepine Start: End: take 0.5 mg by mouth once 0.5 mg, Oral, Once, On Marlys 04/29/25 at 0030, For 1 dose Start: 03-04-2025 End: 03-05-2025 1 mg, IntraVENous, Once PRN, anxiety, Starting on Marlys 03/04/25 at 1050, For 1 dose, Prior to MRI For IV doses dilute dose with 1ml NS. magnesium hydroxide 80 mg/ml oral suspension (2 sources) Start: 04-28-2025 End: 05-03-2025 take 30 mL by mouth every twenty-four hours as needed for constipation magnesium sulfate IVPB premix 2,000 mg (2 sources) Start: 04-28-2025 End: 05-03-2025 magnesium sulfate IVPB premix 2,000 mg morphine injection 2 mg (2 sources) Start: 04-28-2025 End: 05-03-2025 morphine injection 2 mg mupirocin 0.02 mg/mg topical ointment (13 sources) RNA Synthetase Inhibitor Antibacterial Start: 04-28-2025 End: 05-02-2025 Nasal, 2 times daily, First dose on Sat04/28/25 at 1315, For 4 days, Recovery [facility] On Unit Start: 04-28-2025 End: 04-28-2025 take 1 dose nasal route once Nasal, Once, On Sat at 0545, For 1 dose, Preprocedure, Apply liberal amount per nostril the morning of surgery using a q-tip. Do not totally occlude either nostril. Start: 04-16-2025 End: 05-03-2025 mupirocin (Bactroban) 2 % oi ntment Apply liberal amount per nostril the night before surgery and then again the morning of surgery 1 g 04/16/2025 05/03/2025 Discontinued (Stop taking at discharge) Start: 03-04-2025 End: 03-06-2025 1 Application, Nasal, 2 time s daily, First dose on Sat03/04/25 at 1000, For 5 days, Indications: MRSA Nasal Decolonization 1 ml naloxone hydrochloride 0.4 mg/ml injection (2 sources) Opioid Antagonist Start: 04-28-2025 End: 05-03-2025 0.4 mg, IntraVENous, Every 5 min PRN, opioid reversal, respiratory depression, Starting on Sat04/28/25 at 1704, +++ For RR ondansetron ODT (Zofran-ODT) disintegrating tablet 4 mg (4 sources) Start: 04-28-2025 End: 05-03-2025 take 1 tablet by mouth every eight hours as needed for nausea and vomiting ondansetron ODT (Zofran-ODT) disintegrating tablet 4 mg Start: 03-04-2025 End: 03-06-2025 take 1 tablet by mouth every eight hours as needed for nausea and vomiting ondansetron ODT (Zofran-ODT) disintegrating tablet 4 mg oxyCODONE hydrochloride 5 mg oral tablet (8 sources) Opioid Agonist Start: 05-03-2025 End: 05-18-2025 take 1 tablet by mouth every six hours as needed for pain oxyCODONE (Roxicodone) 5 MG immediate release tablet Indications: Aortic stenosis, severe , Post-op pain Take 1 tablet (5 mg) by mouth every 6 hours as needed for severe pain (7-10) (acute post surgical pain) for up to 5 days. 20 tablet 05/03/2025 11:08 AM EDT 05/03/2025 05/18/2025 Discontinued (Therapy completed) Start: 04-28-2025 End: 05-03-2025 take 1 tablet by mouth every four hours as needed for pain oxyCODONE (Roxicodone) immediate release tablet 5 mg pantoprazole 40 mg delayed release oral tablet (2 sources) Proton Pump Inhibitor Start: 04-30-2025 End: 05-03-2025 take 40 mg by mouth once daily before breakfast 40 mg, Oral, Daily before breakfast, First dose on Sat04/30/25 at 0600, Recovery & On Unit, Do not crush, chew, or split. pantoprazole (ProtoNix) 40 mg in sodium chloride (PF) 0.9 % 10 mL injection (2 sources) Start: 04-29-2025 End: 04-29-2025 40 mg, IntraVENous, Administer over 2 Minutes, Daily, First dose on Marlys 04/29/25 at 0600, Recovery & On Unit, Reconstitute with 10 mL 0.9 % sodium chloride and administer over at least 2 minutes. polyethylene glycol [id number] [id number] mg powder for oral solution (4 sources) Osmotic Laxative Start: 04-28-2025 End: 05-03-2025 17 g, Oral, Daily, First dose on Sat04/28/25 at 1315, Recovery & On Unit, Bowel Regimen - for prevention of constipation. Start: 03-04-2025 End: 03-06-2025 take 17 g by mouth every twenty-four hours as needed for constipation 17 g, Oral, Daily PRN, constipation, Starting on Sat03/04/25 at 0955, 1st line for treatment of constipation - give scheduled if no bowel movement in past 24 hours. microencapsulated potassium chloride 20 meq extended release oral tablet (10 sources) Start: 05-03-2025 End: 05-18-2025 take 1 tablet by mouth once daily potassium chloride CR (Klor-Con M20) 20 MEQ ER tablet Take 1 tablet (20 mEq) by mouth daily for 5 days. Do not crush or chew. 5 tablet 05/03/2025 11:08 AM EDT 05/03/2025 05/18/2025 Discontinued (Therapy completed) Start: 04-29-2025 End: 05-03-2025 20 mEq, Oral, PRN, Hypokalem ia, Starting on Sat04/29/25 at 0000, Recovery & On Unit, If patient is intubated or not tolerating PO use PRN IV replacement protocol Potassium level Dose LESS than 3.0 = Give 20 mEq x 3 doses 3.0-3.6 = Give 20 mEq x 2 doses Recheck potassium level 2 hour after replacement given, place order for lab under [place] If potassium level LESS than 3 after 1st replacement: Call surgeon. Do not crush or break. Do not crush or chew. Start: 04-28-2025 End: 05-03-2025 potassium chloride IVPB 20 m Eq 100 ml propofol 10 mg/ml injection (2 sources) General Anesthetic Start: 04-28-2025 End: 04-29-2025 5-50 mcg/kg/min 118 kg (3.54-35.4 mL/hr), IntraVENous, Continuous, Starting on Sat04/28/25 at 1315, Recovery & On Unit, Instructions If RASS 1 point below goal - decrease dose by 5mcg/kg/min no faster than every 5 min If RASS 2 points below goal- decrease dose by 10mcg/kg/min no faster than every 5 min If RASS at goal, continue current dose If RASS 2 or more points above goal - increase dose by 10mcg/kg/min no faster than every 5 min If RASS 1 point above goal - increase dosee by 5mcg/kg/min no faster than every 5 min If after titration rate change patient exhibits adverse hemodynamic response, next titration rate change may be adjusted by one-half of the previous rate change If patient fails sedation interruption, resume propofol titration at 50% of previous rate General Anesthetic - do not give without appropriate ventilation support. Do not administer propofol in same IV catheter as blood or plasma. Discard any unused portion of propofol vials and tubing after 12 hours., Titrate Infusion? Yes, Initial Infusion Dose: 30 mcg/kg/min, Goal of Therapy: RASS of -1 to 0, Contact Provider if: Patient is receiving maximum dose and is not achieving the goal of therapy sildenafil 50 mg oral tablet (16 sources) Phosphodiesterase 5 Inhibitor Start: 09-30-2020 End: 03-11-2025 sildenafiL 50 mg tablet ; 1 (one) Tablet 1 HOUR PRIOR TO INTERCOURSE for 0 days Quantity: 30 {Tablet} Refills: 3 Ordered: 11-Mar-2025 CAROLEE Villa Trian Start: 30-Sep-2020 End: 11-Mar-2025 Status: Inactive Comments: Good Rx Comment on above: Good Rx 5 ml sodium chloride 9 mg/ml injection (14 sources) Start: 04-28-2025 End: 04-30-2025 take 20 mL intravenously every hour 20 mL/hr, IntraVENous, Continuous, Starting on Sat04/28/25 at 1315, Recovery & On Unit, 20 ml/hr to SP(introducer) and WT on Grassflat Mark Catheter; once Grassflat discontinued run at 20 ml/hr through SP(introducer) Start: 04-28-2025 End: 05-03-2025 take 5-40 mL intraluminal route every eight hours 5-40 mL, IntraCATHeter, Every 8 hours, First dose on Sat04/28/25 at 1315, Recovery & On Unit, For Line Patency: Peripheral IV = 5 mL; Midline or Central Line = 10 mL/lumen. If following IV push medication, administer flush at same rate as the IV push. Flush volume is determined by type of infusion therapy being given. For non-viscous solutions use: Peripheral IV = 5 mL Midline or Central Line = 10 mL/lumen For viscous solutions (i.e. blood components, parenteral nutrition, contrast media, or after obtaining blood sample) use: Peripheral IV = 10 mL Midline or Central Line = 20 mL/lumen Start: 04-28-2025 End: 05-03-2025 Start: 04-28-2025 End: 04-28-2025 take 50 mL intravenously every hour 50 mL/hr, IntraVENous, Continuous, Starting on Sat04/28/25 at 0545, Preprocedure, Upon admission to sameday - please start iv if patient does not have iv access. Start: 04-06-2025 End: 04-06-2025 take 5-40 mL intravenously every twelve hours 5-40 mL, IntraVENous, Every 12 hours, First dose on Sat04/06/25 at 0900, Preprocedure, For Line Patency: Peripheral IV = 5 mL; Midline or Central Line = 10 mL/lumen. If following IV push medication, administer flush at same rate as the IV push. Flush volume is determined by type of infusion therapy being given. For non-viscous solutions use: Peripheral IV = 5 mL Midline or Central Line = 10 mL/lumen For viscous solutions (i.e. blood components, parenteral nutrition, contrast media, or after obtaining blood sample) use: Peripheral IV = 10 mL Midline or Central Line = 20 mL/lumen Start: 04-06-2025 End: 04-06-2025 5-40 mL, IntraVENous, PRN, l ine care, After every IV line use, Starting on Sat04/06/25 at 0846, Preprocedure, For Line Patency: Peripheral IV = 5 mL; Midline or Central Line = 10 mL/lumen. If following IV push medication, administer flush at same rate as the IV push. Flush volume is determined by type of infusion therapy being given. For non-viscous solutions use: Peripheral IV = 5 mL Midline or Central Line = 10 mL/lumen For viscous solutions (i.e. blood components, parenteral nutrition, contrast media, or after obtaining blood sample) use: Peripheral IV = 10 mL Midline or Central Line = 20 mL/lumen Start: 03-04-2025 End: 03-05-2025 take 75 mL intravenously every hour 75 mL/hr, IntraVENous, Continuous, Starting on Sat03/04/25 at 1000 5 ml sugammadex 100 mg/ml injection (2 sources) Start: 04-28-2025 End: 04-28-2025 470 mg (rounded from 472 mg = 4 mg/kg 118 kg), IntraVENous, Once, On Sat04/28/25 at 1315, For 1 dose, Recovery & On Unit traZODone hydrochloride 50 mg oral tablet (2 sources) Serotonin Reuptake Inhibitor Start: 05-01-2025 End: 05-03-2025 take 50 mg by mouth once daily 50 mg, Oral, Nightly, First dose on 05/01/25 at 2100 Problems Active Problems Problem Classification Problem Date Documented Date Episodic/Chronic Abdominal pain (20 sources) Lower abdominal pain; Translations: [Lower abdominal pain, unspecified] 06-07-2022 Episodic Comment on above: resolving today Acute cerebrovascular disease (20 sources) Cerebrovascular accident; Translations: [Cerebral infarction, unspecified] Onset: 03-04-2025 03-04-2025 Chronic Cardiac and circulatory congenital anomalies (6 sources) Bicuspid aortic valve; Translations: [Bicuspid aortic valve] Onset: 06-18-2025 05-24-2025 Chronic Cardiac and circulatory congenital anomalies (3 sources) Personal history of (corrected) congenital malformations of heart and circulatory system; Translations: [Personal history of (corrected) congenital malformations of heart and circulatory system] Onset: 06-18-2025 05-24-2025 Episodic Cardiac dysrhythmias (20 sources) Cardiac dysrhythmia, unspecified; Translations: [Paroxysmal atrial fibrillation] Onset: 06-18-2025 06-07-2022 Chronic Cardiac dysrhythmias (20 sources) Palpitations; Translations: [Palpitations] 06-07-2022 Episodic Complications of surgical procedures or medical care (1 source) Atrial fibrillation; Translations: [Other postprocedural complications and disorders of the circulatory system, not elsewhere classified] 06-18-2025 Episodic Congestive heart failure; nonhypertensive (5 sources) Chronic diastolic heart failure; Translations: [Chronic diastolic (congestive) heart failure] Onset: 04-15-2025 04-15-2025 Chronic Coronary atherosclerosis and other heart disease (7 sources) Coronary arteriosclerosis; Translations: [Atherosclerotic heart disease of [place] coronary artery without angina pectoris] Onset: 06-18-2025 05-24-2025 Chronic Disorders of lipid metabolism (20 sources) Hyperlipidemia; Translations: [Other hyperlipidemia] Onset: 03-30-2025 03-30-2025 Chronic Essential hypertension (20 sources) Hypertensive disorder; Translations: [Essential (primary) hypertension] Onset: 03-30-2025 06-07-2022 Chronic Heart valve disorders (20 sources) Aortic valve stenosis; Translations: [Nonrheumatic aortic (valve) stenosis] Onset: 03-30-2025 06-07-2022 Chronic Comment on above: valve area 1.5 Heart valve disorders (20 sources) Heart murmur; Translations: [Cardiac murmur, unspecified] 06-07-2022 Episodic Immunizations and screening for infectious disease (20 sources) Needs influenza immunization; Translations: [Encounter for immunization] 09-30-2020 Episodic Mycoses (20 sources) Tinea corporis; Translations: [Tinea corporis] 06-07-2022 Episodic Nonspecific chest pain (20 sources) Chest pain; Translations: [Chest pain, unspecified] 06-07-2022 Episodic Other aftercare (20 sources) Post-discharge follow-up; Translations: [Encounter for follow-up examination after completed treatment for conditions other than malignant neoplasm] 03-11-2025 Episodic Other aftercare (16 sources) Long-term current use of anticoagulant; Translations: [intermediate (current) use of anticoagulants] 07-20-2025 Episodic Other and ill-defined cerebrovascular disease (14 sources) Cerebral ischemia; Translations: [Transient cerebral ischemic attack, unspecified] 03-12-2025 Chronic Other connective tissue disease (20 sources) Plantar fasciitis of left foot; Translations: [Plantar fascial fibromatosis] 06-07-2022 Episodic Other male genital disorders (20 sources) Male erectile dysfunction, unspecified; Translations: [Impotence of organic origin] 06-07-2022 Chronic Other nervous system disorders (2 sources) Postoperative pain ; Translations: [Other acute postprocedural pain] 05-03-2025 Episodic Other nervous system disorders (2 sources) Other acute postprocedural pain; Translations: [Other acute postprocedural pain] Onset: 04-28-2025 Episodic Other nutritional; endocrine; and metabolic disorders (20 sources) Obesity; Translations: [Obesity, unspecified] 06-07-2022 Chronic Other nutritional; endocrine; and metabolic disorders (20 sources) Morbid obesity; Translations: [Morbid (severe) obesity due to excess calories] 03-11-2025 Chronic Other upper respiratory infections (20 sources) Acute pharyngitis; Translations: [Acute pharyngitis, unspecified] 12-14-2019 Episodic Transient cerebral ischemia (2 sources) Transient cerebral ischemic attack, unspecified; Translations: [Transient cerebral ischemic attack, unspecified] Onset: 03-30-2025 Chronic Unclassified (16 sources) [facility] Routine follow-up - The patient is here for follow-up of hyperlipidemia, obesity and ED. The patient always takes the prescribed medications. No side effects noted. (pt quit taking lisinopril due to cough) The patient has an active lifestyle but no regular program (walks dailypt also bikes to work). The patient's out of office blood pressure checks occur frequently (has readings) and dietary compliance is fairly good usually adhering to recommendations (pt tries to eat healthy). The patient states that there is no recent angina or dyspnea, weight has increased (up 3 lbs) and they do not have headaches. Note for Routine chronic follow-up: NIGEL 09/30/20last labs 09/2013 bmp/tsh 04-27-2021 Unclassified (16 sources) [facility] Routine follow-up - The patient is here for follow-up of hypertension and obesity. The patient always takes the prescribed medications. No side effects noted. The patient engages in regular program 3-5 time(s) per week (bikes to work every am). The patient's out of office blood pressure checks occur frequently (reading on chart) and dietary compliance is fairly good usually adhering to recommendations (eats healthy at times but also what he wants too). The patient states that there are no vision changes or weakness, weight is unchanged and they do not have headaches. Note for Routine chronic follow-up: NIGEL 07/01/2010 bmp, tshpt was in the ER 08/28/20 for kidney stones- pt says his symptoms are starting to come back- he noticed it 2 days ago - left lower abdominal pain and cant urinate like he was before 09-30-2020 Unclassified (2 sources) Follow up from hospital stay - Name of Hospital: [facility]. Date of Admission: 03/04/25. Date of Discharge: 03/06/25. The patient was hospitalized for stroke. New medications include aspirin, atorvastatin, clopidogrel. Consultations ordered while in the hospital include cardiology (for neuro critical care, severe aortic stenosis and need for TVAR has appt on at cardiology). No post hospital therapies were ordered. Patient was discharged to home. Current Symptoms: no symptoms. 03-11-2025 Unclassified (11 sources) Follow up from hospital stay - Name of Hospital: [facility]. Date of Admission: 03/04/25. Date of Discharge: 03/06/25. The patient was hospitalized for stroke. New medications include aspirin, atorvastatin, clopidogrel. Consultations ordered while in the hospital include cardiology (for neuro critical care, severe aortic stenosis and need for TVAR has appt on 03/30/25 at cardiology). No post hospital therapies were ordered. Patient was discharged to home. Current Symptoms: no symptoms. 03-11-2025 Past or Other Problems Problem Classification Problem Date Documented Date Episodic/Chronic Other connective tissue disease (20 sources) Neurological symptom; Translations: [Unspecified symptoms and signs involving the nervous system] Onset: 03-04-2025 03-04-2025 Episodic Other connective tissue disease (2 sources) Unspecified symptoms and signs involving the nervous system; Translations: [Unspecified symptoms and signs involving the nervous system] Onset: 03-04-2025 Episodic Unclassified (16 sources) Foot pain - The pain is in the left foot and is located in the hindfoot. The onset of the foot pain was gradual and has been occurring in a persistent pattern for months. The course has been gradually worsening. The pain is characterized as a sharp stabbing. The pain is aggravated by any movement. There have been no previous diagnostic tests. Note for Foot pain: Hasn't tried any Tylenol or Ibuprofen 06-07-2022 Unclassified (12 sources) Follow up consultation - The patient is here to follow-up after hospitalization on : (06/23/20-06/24/20). Follow up visit with no current symptoms. There is no family history of myocardial infarction before age 55. Note for Consultation follow-up: pt says he has been taking his bp this last week and its always 140/90 ( in the 140, over 90s)this 147/98 this am at home 07-01-2020 Unclassified (12 sources) [ADDITIONAL REASON] Transition into care - The patient is transitioning into care from a hospital and a summary of care was reviewed. 07-01-2020 Unclassified (16 sources) Cold Symptoms - Symptoms include ear pain, sore throat (left sided also through the jawline), fever, chills and general malaise, but do not include nasal congestion, runny nose, dry cough, productive cough or headache. The onset was sudden 3 day(s) ago. The symptoms occur constantly. The patient describes this as moderate in severity and worsening. Current treatment includes NSAIDs. Risk factors do not include smoking. The patient has not been exposed to an individual with a cough, an individual with an upper respiratory infection, an individual with similar symptoms, an individual with strep or secondhand smoke. Patient denies history of seasonal allergies, recurrent sinusitis, recurrent strep pharyngitis, asthma, tonsillectomy or recurrent ear infections. 12-14-2019 Unclassified (16 sources) follow up echo - Pt is here for follow up echocardiogram that was done on 07/10/19 at [facility] 08-14-2019 Unclassified (16 sources) Chest pain - The onset of the pain has been sudden and has been occurring in a recurrent pattern for 10 minutes (this morning upon awakening.). The pain is described as a moderate sharp pain. The pain is described as being located in the left chest. There are no precipitating factors. The symptoms have been associated with palpitations, but have not been associated with abdominal pain, cough or headache. Note for Chest pain: Had left side chest pain a week ago which radiated down left arm. 06-29-2019 Unclassified (16 sources) Palpitations - The symptoms first began 12 month(s) ago. The onset has been spontaneous. The symptoms occur time(s) per day (at least once a day but increasing) . The symptoms are getting worse. The palpitations are described as fluttering, irregular and skipped. Associated features do not include chest pain, dizziness, faintness, heaviness, nausea, syncope, tired/fatigue or weakness. There are no precipitating factors. There are no aggravating factors. There are no relieving factors. Note for Palpitations: Patient treated for hypertension in the past. 09-18-2013 Unclassified (16 sources) High Blood Pressure - Patient just recently had surgery on left wrist by Dr. Russell Hernandez and at that time, noted that he had elevated blood pressure. Patient has been monitoring blood pressure at home and average blood pressure readings have been 148-150/ 85-90. He dose note headaches 2 times weekly. 08-31-2011 Unclassified (4 sources) Transition into care - The patient is transitioning into care from a hospital and a summary of care was reviewed. 07-01-2020 Unclassified (4 sources) [ADDITIONAL REASON] Follow up consultation - The patient is here to follow-up after hospitalization on : (06/23/20-06/24/20). Follow up visit with no current symptoms. There is no family history of myocardial infarction before age 55. Note for Consultation follow-up: pt says he has been taking his bp this last week and its always 140/90 ( in the 140, over 90s)this 147/98 this am at home 07-01-2020 Unclassified (8 sources) Chest pain - Note for Chest pain: Patient reports that in the last 24 hours he has experienced mild chest discomfort when he takes a deep breath. He describes the pain as a sharp stabbing pain that is only located on the right anterior chest wall. He notes mild worsening of his pain when laying supine but states that it will improve with time regardless of his body position. Patient denies cough, dizziness, dyspnea, abdominal pain, nausea, and vomiting. He states that some pain is also radiating to his right shoulder but wonders if this might be associated with previous injury rather than current pain. Patient recently underwent open aortic valve repair approximately 8 weeks ago, he states that his incision has been healing well without concerns but does remain slightly sore. 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 06-23-2025 Results Test Name Value Interpretation Reference Range Facility Laboratory - Coagulationon 0 07-28-2025 INR Coag (PPP) [Relative time] 2.2 {INR} Normal [employer]. No Panel Informationon 07-28 COMMENTS dose confirmed Normal [facility] [employer]. COMMENTS 2 no changes Normal [employer] COMMENTS 3 . Normal [employer] DIAGNOSIS valve replacement Normal [employer] DOSE 4.5mg MWF, 3mg Tu Mariolaur Zachary Sun Normal [employer] LAST OFFICE VISIT LE Normal [employer] NEW DOSE 4.5mg MWF, 3mg Tu Maldonado Sharma Sun Normal Walsh [email or web address] NEXT APPT 1 week Normal [employer] NURSE INITIALS HP Normal [facility] [employer] [employer].; [employer]. TARGET RANGE 2-3 Normal [facility] [employer] Cardiology Visit Reporton Cardiology Visit Report [facility] [address] [place] [address] OFFICE VISIT Date of Service: 07/27/25 MR#: [id number] Acct: [id number] Name: BRIGHT KEEN Rep #: [id number] : 1970 Provider: Dr. Yony rothman MD Age/Sex: 55/M Location: [place] Status: Signed HPI HPI History of Present Illness Details: Patient is a very pleasant 55-year-old white male [facility]. This is a new patient visit. Patient originally presented back in March with a CVA at [facility]. He essentially had no deficits and was found to be in atrial fibrillation with a critical aortic stenosis. He subsequently was evaluated and underwent mechanical aortic valve replacement and PFO [facility] The patient had postop paroxysms of atrial fibrillation was treated with amiodarone which was discontinued in June 2025. He has remained in normal sinus rhythm. The patient is on Coumadin his INR target is 2???3 it was 1.9 last week. He is getting it checked weekly and is [place] primary care's office. Patient also has a history of hyperlipidemia he does not believe he was on statin therapy prior to his March 2025 lipid levels which showed an LDL of 133. He is now on atorvastatin 40 mg daily and is tolerating it without incident. The patient denies any nuisance bleeding he is tolerating his medical regiment. ECG in office today shows normal sinus rhythm with an old septal infarct pattern. Patient denies any chest pain he is participated in cardiac rehab. [facility] for 5 or 6 sessions and then transferred to [place] but never really reinstituted his rehab. He feels that he is pretty much back to regular activity levels that he is much easier for him to walk and he has no dyspnea on exertion and no shortness of breath. He feels much better and has much more energy than he had preoperatively. Patient's catheterization done April 06, 2025 showed minimal left main coronary disease his LAD had a 50% lesion after a large diagonal 1 which had a 30% stenosis. The circumflex had mild coronary artery disease the right coronary had minimal coronary artery disease. It was not felt that bypass was indicated nor was revascularization percutaneously indicated. Patient's blood pressure is now elevated in the office at 152/90 reports this is pretty much what has been running in his home environment as well. Intake Vital Signs 06/11/25 15:04 07/27/25 14:46 Height 5 ft 10 in 5 ft 10 in Weight: 259 lb BMI 37.1 BP 152/90 H Blood Pressure Location Lt brachial Position Sitting Respiration 18 Pulse 73 Pulse Source Monitor Pulse Oximetry (%) 94 Oxygen Delivery Method room air Intake Visit Reasons: CVA/AFIB ([employer]) Tug Captain Required: No Accompanied by: Self Is patient in pain?: No Allergies No Known Allergies Allergy (Unverified 07/27/25 14:46) Medications ???Medication ???Instructions ???Recorded ???Confirmed ???Type aspirin 81 mg tablet,delayed 81 mg PO QDAY 07/19/25 07/19/25 Hi story release (Adult Aspirin Regimen) atorvastatin 40 mg tablet (Lipitor) 40 mg PO QDAY 07/19/25 07/19/25 History losartan 50 mg-hydrochlorothiazi de 1 tab PO QDAY #30 tabs 07/27/25 07/27/25 Rx 12.5 mg tablet warfarin 3 mg tablet mg PO DAILY 07/27/25 07/27/25 Hist ory Have you fallen in the past year?: No [facility] Medical History (Updated 07/27/25 @ 15:[address] Yony Soto MD) Bicuspid aortic valve CAD (coronary atherosclerotic disease) Postoperative atrial fibrillation Ischemic stroke Morbid obesity Hyperlipidemia Hypertension Chronic diastolic CHF (congestive heart failure), NYHA class 3 Severe aortic stenosis Surgical History History of surgical closure of patent foramen ovale (PFO) History of surgery on arm History of cardiac catheterization History of mechanical aortic valve replacement Family History Mother Heart disease Grandmother Heart disease Grandfather Heart disease Social History Smoking Status: Never smoker alcohol intake: never substance use type: does not use caffeine: Yes ROS Const Const: Negative for fatigue or weakness ENT ENT: Negative for dizziness or balance problems Cardio Chest Pain: No Palpitations: No Edema: Bilateral Muscle aches with walking: None Resp Respiratory: Negative for SOB with activity, SOB at rest or SOB orthopnea SOB lying down GI GI: Negative nausea, vomiting or heartburn Musc Musc: Negative for muscle weakness or balance problems Neuro Neuro: Negative for dizziness, lighth (more content not included)... Normal [facility] Laboratory - Coagulationon 0 07-20-2025 INR Coag (PPP) [Relative time] 1.9 {INR} Normal [employer]. No Panel Informationon 07-20 COMMENTS patient voiced understanding Normal [employer] COMMENTS 2 dose confirmed Normal [employer]. COMMENTS 3 - Normal [employer].; [employer] DIAGNOSIS valve replacement Normal [employer].; [employer] DOSE 4.5mg M W F, & 3mg T, THURS, SAT AND SUN Normal [employer].; [employer] LAST OFFICE VISIT 06/23/2025 Normal [employer].; [employer] NEW DOSE same dose except take an extra half tablet today a Normal [employer].; [employer] NEXT APPT 1 week Normal [employer].; [employer] NURSE INITIALS Normal [employer].; [employer] SUPERVISING PROVIDER CASSIE Normal [employer].; [employer] TARGET RANGE 2-3 Normal [facility] [employer] Laboratory - Coagulationon 0 07-13-2025 INR Coag (PPP) [Relative time] 1.7 {INR} Normal Walsh [employer].; [employer]. No Panel Informationon 07-13 COMMENTS pt was alternating 4.5mg and 3mg past 4 days Normal [employer] [facility].; [employer]. COMMENTS 2 pt is to resume dosing on specific days Normal [email or web address] [employer]. COMMENTS 3 - Normal [email or web address].; [employer]. DIAGNOSIS Valve replacement Normal [email or web address].; [employer]. DOSE 4.5mg M,W,F & 3mg T,Thur,Sat,Sun Normal [facility], [employer].; [employer]. LAST OFFICE VISIT 06/23/2025 Normal Walsh [employer].; [employer]. NEW DOSE resume same dosing as above Normal [facility] [employer]. NEXT APPT 1 week home INR Normal [facility].; [employer] NURSE INITIALS HARSH Normal [facility] [employer].; [employer] SUPERVISING PROVIDER CASSIE Normal [facility] [employer] [facility].; [employer] TARGET RANGE 2-3 Normal [facility].; [employer] 36on 07-05-2025 36 [facility] Anticoagulation Management Service ([facility]) Anticoagulation Clinic [address] [place] [address], [facility] [address], [place] [address] Pt has been discharged from [facility] clinic because his PCP is going to manage his warfarin. Documentation is in EPIC. Pt and referring provider are aware of this change in management. [facility] Anticoagulation Episode has been resolved. Normal [facility] [facility]25 36 Pt to have pcp, Dr Solorzano manage INRS. Called his office to verify is willing and he is. Will need to inactivate Normal [facility] POCT INRon 07-02-2025 INR Coag (Bld) [Relative time] 2.3 {INR} High 0.9 - 1.1 [facility] Interpretation and review of laboratory results Abnormal [facility] Performed by: Delilah Rolon [facility], [address] [place], [place] [id number] CLIA ID: [id number] [facility] Progress Noteon 07-02-2025 Progress Note [facility] Anticoagulation Management Service (NADIR) Anticoagulation Clinic [address], [address], [place] [address] Jose Paniagua (1970) presents to the [facility] clinic today for follow-up warfarin visit. The primary encounter diagnosis was Severe aortic stenosis. A diagnosis of S/P AVR (aortic valve replacement) was also pertinent to this visit. and has a goal INR 2.0-3.0. Pt has Coumadin 3mg tablets and at last visit was instructed to take 4. 5 mg MWF 3 mg all other days. Pt confirms taking this dose and adherence to current regimen: yes Any changes in prescriptions, OTC, and/or herbal medications: yes . Amiodarone dcd 06/[address] Wolf. He is referring him to [facility], Dr Soto as that is closer for him Changes in alcohol, tobacco, or marijuana use: no Any recent hospitalizations or ED visits: no Any recent falls or head trauma: no Any changes in diet (vit K): no Upcoming surgeries or procedure: no Does pt need refills on warfarin prescription: no Review of Systems Constitutional: Negative for activity change, appetite change and fatigue. HENT: Negative for nosebleeds. Respiratory: Negative for shortness of breath. Cardiovascular: Positive for chest pain (some post op pain from heart sx). Negative for leg swelling. Gastrointestinal: Negative for blood in stool, diarrhea, nausea and vomiting. Genitourinary: Negative for hematuria. Neurological: Negative for weakness, light-headedness and headaches. Hematological: Does not bruise/bleed easily. Objective Vitals: 07/02/25 1131 07/02/25 1132 07/02/25 1147 BP: (!) 158/96 (!) 150/94 139/83 Pulse: 76 76 Weight: 258 lb (117 kg) Assessment Lab Results Component Value Date INR 2.3 (H) 07/02/2025 INR 2.0 (H) 06/18/2025 INR 2.9 (H) 06/08/2025 INR 3.0 (H) 05/25/2025 INR 2.7 (H) 05/18/2025 Plan INR is therapeutic. Since amiodarone dcd recently will need to monitor for INR decrease Dosin.5 mg MWF 3 mg all other days Next INR Check: 07/09. Pt states pcp, Dr Solorzano in [place] will manage warfarin. Advised I would call the office to verify and fax summary Patient educated on the following: medication adherence and Vitamin K content and consistency Patient care coordination completed: Called another office to verify information. Spoke with Dr. Solorzano's staff who states will manage. Suggested next INR in 7 -10 days. Called pt to have him make appt with pcp for INR check. Faxed summary to [phone] Positive ROS findings are: chronic, pt instructed to follow-up with provider Bright was instructed to notify NADIR of any unusual bruising or active/uncontrollabl e bleeding, medication changes within 24 hours, missed doses, dietary changes, illnesses or hospitalizations, and upcoming surgeries. Patient given written instructions. Patient expressed understanding utilizing the teach back method. Discharged ambulatory in no apparent distress. Time spent 15 Minutes Rama Rodriguez RN [facility] ECG 12 lead - CLINIC PERFORM EDon 06-18-2025 Sinus Rhythm with a first degree AV block [facility] Office Visiton 06-18-2025 Follow-up visit [id number] Bright Keen 1970 M Date Provider Department Center 06/18/2025 [id number] FRANCIS [facility] KAYE [facility] [address] No family history on file Level of Service:56741 SC OFFICE/OUTPATIENT NEW MODERATE MDM 45 MINUTES Reason for Visit and Comments: Atrial Fibrillation [80] - PAF Cardiac Valve Problem [1334] - Mechanical AVR 04-28-25 Bicuspid Other [0] - PFO repair 04-28-25 Cryptogenic CVA Coronary Artery Disease [187] Hyperlipidemia [182] Hypertension [558613] Normal [facility] POCT INRon 06-18-2025 INR Coag (Bld) [Relative time] 2 {INR} High 0.9 - 1.1 [facility] Interpretation and review of laboratory results Abnormal [facility] Performed by: [facility], [address] [place] [address], [place] [address] CLIA ID: [id number] [facility] Progress Noteon 06-18-2025 Progress Note [facility] Cardiology/Electroph ysiology NewPatient Note Chief Complaint: Chief Complaint Patient presents with Atrial Fibrillation PAF Cardiac Valve Problem Mechanical AVR 04-28-25 Bicuspid Other PFO repair 04-28-25 Cryptogenic CVA Coronary Artery Disease Hyperlipidemia Hypertension History of Present Illness: Bright Keen is a 55 y.o. male who I meet today for the first time. He presented to [facility] in [place] with left-sided weakness in March 2025. He was given TNK and transferred to [facility]. A brain MRI showed 4 small embolic infarcts in the right frontal, occipital, and left parietal lobe. An echo showed a moderately dilated LA and RA with a bicuspid aortic valve and severe aortic stenosis. He was given aspirin and statin. He was seen a month later in valve clinic. A cath showed mild to moderate CAD (50% mid LAD 30% D1). He underwent a mechanical aortic valve replacement and a PFO repair with Dr. Ulloa on April 28, 2025. He had some postop atrial fibrillation and in addition to the Coumadin for the valve he was put on amiodarone. He presents today feeling well. In retrospect, he had been getting short of breath/dyspneic with exertion for many years, but ignored it. He also reported occasional palpitation which were rare and not very prolonged. Since discharge, he denies chest pain, SOB/PADRON, palpitation, dizziness, or syncope. In general he feels much better. Today, we spoke about following up closer to [place]. An EKG today shows normal sinus rhythm with a borderline first-degree AV block and a narrow QRS. An intraoperative KATY showed a well-seated mechanical valve with no perivalvular leak. Assessment and Plan: 1. Postop atrial fibrillation: Obviously not uncommon in the setting aortic valve surgery. Hard to know if he had atrial fibrillation preoperatively over the last several years, though certainly that is a concern given his presentation with a CVA (see below). As it is, he is protected from a thromboembolic event by the Coumadin which she is taking for his mechanical AVR. Today I will stop the amiodarone given his young age. We spoke about monitoring his heart rate at home which he does routinely. I will refer him to the [facility] (Dr. Soto) as this is much more convenient for him. 2. Mechanical aortic valve replacement: He had a mechanical valve implanted on April 28, 2025 (25 mm [place] serial #[id number]). He has been recovering well and is due to start cardiac rehab in [place] next week. He also had a PFO closure at that time. He did not have a left atrial appendage closure. 3. Thromboembolic CVA: The etiology of this is probably his severe aortic stenosis. However, he could have had some preoperative atrial fibrillation as well. At this point, he will need Coumadin indefinitely. I told him he is protected from the risk of thromboembolic recurrence. We went over the pathophysiology of a thromboembolic stroke and explained to him that it could have been from the valve or from periods of atrial fibrillation prior to his surgery. 4. Follow-up: Understandably, he would like to follow closer to home. I have given him the name of Dr. Yony Soto At the [facility]. I will send him my note and call him. Past Medical History: Medical History[1] Past Surgical History Surgical History[2] Family History Family History[3] Social History Social History[4] Medications: Reviewed Allergies: Reviewed Review of Systems: All other systems were reviewed and are negative other than as noted in the HPI. Physical Examination: Vitals: Blood pressure (S) (!) 146/76, pulse 73, height 5' 10 (1.778 m), weight 262 lb 3.2 oz (119 kg), SpO2 98%. Constitutional: Appears well kept and looks stated age; in NAD Psychiatric: A &O x3 Mood is pleasant; Affect is appropriate Musculoskeletal: Normocephalic; no joint swelling; gait steady; 5/5 muscle strength bilaterally in upper and lower extremities; no clubbing or cyanosis HEENT: Pupils are equal and round; Conjunctiva are not injected; Sclera are non-icteric; Airway and Nares are patent; Ears without external abnormalities. Mucosa is pink; Dentition is normal Neck: Supple; No JVD or Bruits; No thyromegaly; No lymphadenopathy Respiratory: Lungs are clear with no rales or wheezes. Respiratory effort is normal and symmetrical bilaterally; Good air movement bilaterally Heart: RRR without ectopy; Nl S1 and S2 2/6 aortic flow murmur. No crg Abdomen: NABS soft, non-tender, non-distended; no organomegaly; no obvious masses Extremities/Skin: No LE edema; Skin warm to touch and well perfused; skin discoloration is absent; Peripheral Pulses intact Neuro: sensation and motor function are grossly normal. Cranial Nerves are grossly intact Laboratory Tests: Lab Results Component Value Date WBC 7.2 05/03/2025 WBC 8.1 05/02/2025 WBC 10.3 05/01/2025 (more content not included)... Normal [facility] Progress Note [facility] Anticoagulation Management Service ([facility]) Anticoagulation Clinic [address] [place] [address], [address] [place] [id number] Jose Paniagua (1970) presents to the [facility] clinic today for follow-up warfarin visit. The primary encounter diagnosis was Severe aortic stenosis. A diagnosis of S/P AVR (aortic valve replacement) was also pertinent to this visit. and has a goal INR 2.0-3.0. Pt has Coumadin 3mg tablets and at last visit was instructed to take 4.5 mg Tues,Sat 3 mg all other days. Has an appt today with cardiology, Dr Francis. Pt confirms taking this dose and adherence to current regimen: yes Any changes in prescriptions, OTC, and/or herbal medications: yes . Last month amiodarone decreased Changes in alcohol, tobacco, or marijuana use: N/A Any recent hospitalizations or ED visits: no Any recent falls or head trauma: no Any changes in diet (vit K): no Upcoming surgeries or procedure: no Does pt need refills on warfarin prescription: no Review of Systems Constitutional: Positive for activity change (will be starting cardiac rehab at [facility]). Negative for appetite change and fatigue. HENT: Negative for nosebleeds. Respiratory: Negative for shortness of breath. Cardiovascular: Negative for chest pain and leg swelling. Gastrointestinal: Negative for blood in stool, diarrhea, nausea and vomiting. Genitourinary: Negative for hematuria. Neurological: Negative for weakness, light-headedness and headaches. Hematological: Does not bruise/bleed easily. Objective Vitals: 06/18/25 1004 06/18/25 1006 06/18/25 1015 BP: (!) 150/88 (!) 144/84 128/73 Pulse: 76 74 Assessment Lab Results Component Value Date INR 2.0 (H) 06/18/2025 INR 2.9 (H) 06/08/2025 INR 3.0 (H) 05/25/2025 INR 2.7 (H) 05/18/2025 INR 1.9 (H) 05/11/2025 Plan INR is therapeutic on low end likely due to amiodarone decrease. Rechecked BP after 5 minutes with improvement. Dosing: increase to 4.5 mg MWF 3 mg all other days Next INR Check: 07/02 Patient educated on the following: medication adherence, Vitamin K content and consistency, and rationale for dose change Patient care coordination completed: N/A Positive ROS findings are: n/a - no positive findings Bright was instructed to notify NADIR of any unusual bruising or active/uncontrollabl e bleeding, medication changes within 24 hours, missed doses, dietary changes, illnesses or hospitalizations, and upcoming surgeries. Patient given written instructions. Patient expressed understanding utilizing the teach back method. Discharged ambulatory in no apparent distress. Time spent 12 Minutes Rama Rodriguez RN staffed with [facility] Cardiac rehabilitation evalu ation reportOrdered By: Vic Solorzano on 06-14-2025 Study report [facility] Cardiac Rehab [address] [place] [address] CR - History & Physical MR#: [id number] Acct: [id number] Name: BRIGHT KEEN Rep #:[id number] : 1970 55 From: Vic Jesus BS, RVT PCP: JOSE Jj DOS: CR - History & Physical General Arrival date:: 06/11/25 Arrival time:: 14:01 Date of Referral:: 06/08/25 Date of CR Evaluation:: 06/11/25 Referring Physician: Dr. Patricia Artemio Primary Diagnosis: S/P AVR History of Present Cardiac Event Onset Date Heart valve replacement or repair:: Yes (04/28/25 onset) Sleep Disorder Evaluation Hx of Sleep Apnea: No Do you snore loudly (louder than talking or can be heard through closed doors)?:No Do you often feel tired/ fatigued/ sleepy during daytime?: No Has anyone observed you stop breathing during sleep?: No History of Hypertension (for STOP score): Yes STOP Results: Negative Advanced Directives Advanced Directives Do you have a Healthcare Power of Joint Cutter Machine?: No Living Will: No Advance Directives Information Provided: No Advance Directives on File: No DNR Order?:: No Past Medical History Covid-19 Screening Physicial Symptoms Other Clinical Concerns Exposure Risk Pertinent Comorbidities Has a serious heart condition:: Yes Social History Smoking History Smoking Status: Never smoker Alcohol Use Alcohol Usage: No Substance Abuse Hx Substance Use: No Occupation Occupation (List type of work in comments):: Employed Hours worked per day:: 9 Social Environment Status Marital Status: Current Living Arrangements Living Environment:: Family Children How many children do you have?: 12 Do any of your children live nearby?: Yes Safety Do you feel safe in your surroundings?: Yes Assistance Do you need any assistance at home?: no Review of Systems Review of Systems Hints Review of Present Symptoms: Reports Shortness of Breath with Exertion, Fatigue, Appetite - Normal and Appetite - Special Diet; Denies Shortness of Breath at Rest, PVD, Operative Discomfort, Angina, Wound Healing, Dizziness/Lightheade dness, Heart Arrhythmia/Irregular ities, Sleep - Normal or Sexual Changes Pain Is Patient Pain Free?: Yes Risk Factor Assessment Chief Complaint Chief Complaint: S/P AVR Vital Signs Pulse Ox: 98 Blood Pressure: 160/90 Pulse Pulse Rate: 77 Pulse Rhythm: Regular Hypertension Blood Pressure Sitting - Right Arm: 160/90 Obesity Height: 5 ft 10 in Weight:: 259 lb Weight in Pounds: 259.0 lbs Body Mass Index (BMI): 37.1 Physical Inactivity Physical Inactivity: Reg Exercise 30 min/day Risk Stratification Risk Guidelines: Moderate Risk: Risk Factor for Smoking, Risk Factor for Dyslipidemia, Risk Factor for Diabetes, Risk Factor for Sedentary Lifestyle and Risk Factor for Depression and Highest Risk: Risk Factor for Obesity and Risk Factor for Hypertension For Smoking Smoking Risk Guidelines For Dyslipidemia Dyslipidemia Risk Guidelines For Diabetes Mellitus Diabetes Risk Guidelines For Obesity/Overweight Obesity/Overweight Risk Guidelines For Hypertension Hypertension Risk Guidelines For Sedentary Lifestyle Sedentary Lifestyle Risk Guidelines For Depression Depression Risk Guidelines Motivation Motivation to Participate On a scale of 1 to 10, how prepared are you to commit to attending program?: 8 What do you see as barriers to successfully being able to complete the program?:nothing What do you see as the benefits of succesfully completing the program? In other words, what do you hope to get out of participating in the program?: wants to beback to normal, more energy Are there issues you are dealing with that will interfere with completing the program?: no Do you have a spouse or signficant other, family or friends who will help support you to complete the program?: yes 06/11/25 1505 Date Vic WYATT, RVT Outcome assessment reviewed. Exercise plan approved as documented. Treatment plan and goals support patient needs/abilities. Continue with current plan. I certify the patient demonstrates improvement and remains willing and capable of participation. the patient continues to benefit from cardiac rehab services/training. The patient may continue at current intensity, endurance andmodality and progress per protocol. 06/14/25 0648 Cosigner Signature: Date _ Aníbal Kyle MD CC: ~ Signed [facility] No Panel InformationOrdered By: Vic Solorzano on 06-14-2025 [facility] Cardiac Rehab [address] [place] [address] CR - Individual Treatment Plan MR#: [id number] Acct: [id number] Name: OSMANIBRIGHT A Rep #:[id number] : 1970 55 From: Vic WYATT, RVT PCP: JOSE Jj DOS: Diagnosis General Information Admitting Diagnosis: S/P AVR Personal Learning Style:: Audio/Visual Barriers to Learning: No Barriers Stage of change r/t lifestyle modifications:: Contemplation Gave educational material for:: Treating Heart Disease, How The Heart Works, What it means to have Heart Disease, How Coronary Artery Disease is Diagnosed, Heart Procedures, What Heart Medications Do, Risk Factors & Modifications, Living an Active Life, Nutrition, Emotions & Heart Disease, Stress Management & Relaxation and Sleep Disorders & Heart Disease Education/Goals Cardiac Rehabilitation Goals Personal Goals: Initial Assessment: Improve energy level, Participate in home exercise program, Get back to work, or to resume activities faster, Improve knowledge of cardiac disease and Improve muscle strength and endurance Scale for measuring improvement of personal goals Diagnosis & Disease Process Outcomes/Goals: Pt IDs own risk factors & lifestyle modifications by Session 10,Verbalizes symptoms of angina & response by session 3., Pt independently managesand Other Additional Outcomes/Goals: Plan/Interventions: Assist Pt to ID & engage in lifestyle modification to reduceCVD risk, Instruct on individual risk factors, Review symptoms of angina & emergency actions, Review secondary diagnosis & identify educational needs. and Other see comment 30 day Reassessments:: Not Met 30 day Reassessments:: Not Met 30 day Reassessments:: Not Met 30 day Reassessments:: Not Met Final Reassessments:: Not Met Safety Referral to Physical Therapy: No Referral to [facility] Case Management: No Fall Risk Assessed:: Yes Assistive Devices:: None Exercise - Initial Assessment Visit Date of Eval: 06/11/25 (initial eval ) Mets: Pre-: >3 METS for 30 minutes by discharge, >5 METS for 30 minutes by discharge, >7 METS for 30 minutes by discharge and Unable to meet goal due to: (see comment below) Physician Prescribed Exercise Modalities: Treadmill, Schwinn Airdyne AD-7, SciFit Stepper, SciFit Pro-II Ergometer and [employer] Lateral Extract Puller Frequency: 3x/week for 12 weeks [36 sessions] Intensity: 60-80% of age predicted maximum heart rate reserve Duration: 30 - 45 minutes Current METSs:: 3 Target Heart Rate:: 98-122 Resting Blood Pressure: 160/90 EKG Type: SR prolonged SC interval, abnormal T, minmal ST elevation, PVC's Outcomes & Goals Goals:: Verbalizes understanding of THR, RPE & goal METS by session 6, Documentsin home exercise log/reports 30 min aerobic 5 day/wk by DC, Demonstrates accurate pulse taking by DC and Other additional outcome/goals: see below Intervention & Plan Exercise Program Goals: Instruct on personal THR & RPE, Instruct on MET level & personal MET goal, Show patient to take own pulse /validate performance until accurate, Instruct on home exercise and Other additional plan/int Physical Activity Home Exercise Physical Activity - Home Exercise: Safe Exercise, Warm-up, Self-monitoring, Cool-Down, Home Exercise > 30 min Daily and Sitting Time <3 hours/daily Outcomes & Goals Outcomes/Goals: Demonstrates correct Warm-up/exercise Cool-Down (S3) if = 2.5 METs, Verbalizes symptoms of exercise intolerance by Session 3 (S3), Demonstratesafe equipment use (S3) & follows exercise prescrition (6) and Other: See below Intervention & Plan Plan/Intervention: Instruct warm-up & cool-down if exercising at > 2 METs, Instruct on symptoms of exercise intolerance & actions to take, Instruct & monitor on saf, Assess intial functional capacity & safety risk and Other See below Nutrition - Initial Assessment Visit Date of Eval: 06/11/25 (initial eval ) Cholesterol/Lipids (Other Core Measures) Determine presence & major risk factors that modify LDL goal: Hypertension or hypertensive medication, Low HDL cholesterol <40 mg/dL*, Family history of premature CHD in Male < 55 years: female <65 yearsFa and Age men > 45 years; women >/= 55 years Outcomes/Goals: Pt IDs own risk factors & lifestyle modifications by Session 10,Verbalizes symptoms of angina & response by session 3., Pt independently managesand Other Additional Outcomes/Goals: Intervention/Plan: Advocate for lipid panel cholesterol medication if applicable, Instruct on personal lipid levels & lipid goals/NCEP guidelines, Instruct on cholesterol and Other additional plan/int Diabetes (Other Core Measures) Diabetes Type: Not Applicable Weight Mgt (Other Care) Height: 5 ft 10 in Weight:: 259 lb BMI: 37.1 Diagnosis Overweight/Obesity BMI> 30% ICD-10 E66: No Diagnosis High BMI/Morbid Obesity BMI> 35% ICD-10 Z68: No Outcomes/Goals: Pt sets, maintains & shows weight loss goal & trend during rehaband Other additional outcomes/goals Intervention/Plan: Instruct on ideal BMI & set weight loss goal w/patient, Assist pt to ID & incorporate diet ch (more content not included)... [facility] CR - History AND Physicalon 06-11-2025 CR - History & Physical [place] [address] [place] [address] CR - History Physical MR#: [id number] Acct: [id number] Name: BRIGHT KEEN Rep #: [id number] : 1970 55 From: Vic Jesus BS, RVT PCP: JOSE Jj DOS: 06/11/25 CR - History Physical General Arrival date:: 06/11/25 Arrival time:: 14:01 Date of Referral:: 06/08/25 Date of CR Evaluation:: 06/11/25 Referring Physician: Dr. Patricia Ulloa Primary Diagnosis: S/P AVR History of Present Cardiac Event Onset Date Heart valve replacement or repair:: Yes (04/28/25 onset) Sleep Disorder Evaluation Hx of Sleep Apnea: No Do you snore loudly (louder than talking or can be heard through closed doors)?: No Do you often feel tired/ fatigued/ sleepy during daytime?: No Has anyone observed you stop breathing during sleep?: No History of Hypertension (for STOP score): Yes STOP Results: Negative Advanced Directives Advanced Directives Do you have a Healthcare Power of Joint Cutter Machine?: No Living Will: No Advance Directives Information Provided: No Advance Directives on File: No DNR Order?:: No Past Medical History Covid-19 Screening Physicial Symptoms Other Clinical Concerns Exposure Risk Pertinent Comorbidities Has a serious heart condition:: Yes Social History Smoking History Smoking Status: Never smoker Alcohol Use Alcohol Usage: No Substance Abuse Hx Substance Use: No Occupation Occupation (List type of work in comments):: Employed Hours worked per day:: 9 Social Environment Status Marital Status: Current Living Arrangements Living Environment:: Family Children How many children do you have?: 12 Do any of your children live nearby?: Yes Safety Do you feel safe in your surroundings?: Yes Assistance Do you need any assistance at home?: no Review of Systems Review of Systems Hints Review of Present Symptoms: Reports Shortness of Breath with Exertion, Fatigue, Appetite - Normal and Appetite - Special Diet; Denies Shortness of Breath at Rest, PVD, Operative Discomfort, Angina, Wound Healing, Dizziness/Lightheade dness, Heart Arrhythmia/Irregular ities, Sleep - Normal or Sexual Changes Pain Is Patient Pain Free?: Yes Risk Factor Assessment Chief Complaint Chief Complaint: S/P AVR Vital Signs Pulse Ox: 98 Blood Pressure: 160/90 Pulse Pulse Rate: 77 Pulse Rhythm: Regular Hypertension Blood Pressure Sitting - Right Arm: 160/90 Obesity Height: 5 ft 10 in Weight:: 259 lb Weight in Pounds: 259.0 lbs Body Mass Index (BMI): 37.1 Physical Inactivity Physical Inactivity: Reg Exercise 30 min/day Risk Stratification Risk Guidelines: Moderate Risk: Risk Factor for Smoking, Risk Factor for Dyslipidemia, Risk Factor for Diabetes, Risk Factor for Sedentary Lifestyle and Risk Factor for Depression and Highest Risk: Risk Factor for Obesity and Risk Factor for Hypertension For Smoking Smoking Risk Guidelines For Dyslipidemia Dyslipidemia Risk Guidelines For Diabetes Mellitus Diabetes Risk Guidelines For Obesity/Overweight Obesity/Overweight Risk Guidelines For Hypertension Hypertension Risk Guidelines For Sedentary Lifestyle Sedentary Lifestyle Risk Guidelines For Depression Depression Risk Guidelines Motivation Motivation to Participate On a scale of 1 to 10, how prepared are you to commit to attending program?: 8 What do you see as barriers to successfully being able to complete the program?: nothing What do you see as the benefits of succesfully completing the program? In other words, what do you hope to get out of participating in the program?: wants to be back to normal, more energy Are there issues you are dealing with that will interfere with completing the program?: no Do you have a spouse or signficant other, family or friends who will help support you to complete the program?: yes 06/11/25 1505 Date Vic WYATT, RVT Outcome assessment reviewed. Exercise plan approved as documented. Treatment plan and goals support patient needs/abilities. Continue with current plan. I certify the patient demonstrates improvement and remains willing and capable of participation. the patient continues to benefit from cardiac rehab services/training. The patient may continue at current intensity, endurance and modality and progress per protocol. 06/14/25 0648 Cosigner Signature: Date Saroj,Aníbal MD CC: Signed Normal [facility] POCT INRon 06-08-2025 INR Coag (Bld) [Relative time] 2.9 {INR} High 0.9 - 1.1 [facility] Interpretation and review of laboratory results Abnormal [facility]formed [facility]: [facility], [address] [place] [id number] CLIA ID: [id number] [facility] Progress Noteon 06-08-2025 Progress Note [facility] Anticoagulation Management Service ([facility]DIR) Anticoagulation Clinic [address], [address], [place] [address] Jose Paniagua (1970) presents to the [facility] clinic today for follow-up warfarin visit. The primary encounter diagnosis was Severe aortic stenosis. A diagnosis of S/P AVR (aortic valve replacement) was also pertinent to this visit. and has a goal INR 2.0-3.0. Pt has Coumadin 3mg tablets and at last visit was instructed to take 4.5 mg Tues Sat 3 mg all other days. Has an appt next wek with cardiology. Pt lives in [place]. The drive here is over an hour. He would like to be able to find provider in [facility]. Discussed there is a Coumadin Clinic there but would need a referral from a Dr that follows with that hospital. States his pcp likely does. He is in [place]. Discussed a home meter after being on warfarin for 3 months also. Pt confirms taking this dose and adherence to current regimen: yes Any changes in prescriptions, OTC, and/or herbal medications: yes . Amiodarone dose decreased mid May Changes in alcohol, tobacco, or marijuana use: N/A Any recent hospitalizations or ED visits: no Any recent falls or head trauma: no Any changes in diet (vit K): no Upcoming surgeries or procedure: no Does pt need refills on warfarin prescription: no Review of Systems Objective Vitals: 06/08/25 1104 06/08/25 1149 BP: (!) 185/84 (!) 141/76 Pulse: 76 Weight: 255 lb 9.6 oz (116 kg) Assessment Lab Results Component Value Date INR 2.9 (H) 06/08/2025 INR 3.0 (H) 05/25/2025 INR 2.7 (H) 05/18/2025 INR 1.9 (H) 05/11/2025 INR 2.8 (A) 05/05/2025 Plan INR is therapeutic Dosin.5 mg Tues,Sat 3 mg all other days Next INR Check: 06/18 prior to cardiology appt Patient educated on the following: medication adherence and Vitamin K content and consistency Patient care coordination completed: N/A Positive ROS findings are: n/a - no positive findings Bright was instructed to notify [facility] of any unusual bruising or active/uncontrollabl e bleeding, medication changes within 24 hours, missed doses, dietary changes, illnesses or hospitalizations, and upcoming surgeries. Patient given written instructions. Patient expressed understanding utilizing the teach back method. Discharged ambulatory in no apparent distress. Time spent 12 Minutes Rama Rodriguez RN Normal [facility] Progress Noteon 06-01-2025 Progress Note [facility] Medical Group: [facility] [address] [facility] [address] Dept: [phone] Dept Loc: [phone] Visit type: Established patient - Virtual Surgery/Procedure: s/p AVR (#25 [facility]) PFO repair and KATY with Dr. Ulloa on 04/28/25 Reason for Visit: follow up Assessment/Plan Diagnosis: Severe s/p AVR [facility] CHF POAF Plan: POD#34 Day from Discharge (05/03/25): #29 -Reviewed current meds: continue as ordered Continue ASA/statin - reviewed prior lipid panel with patient Amio - POAF - taper Coumadin per Nadir INR goal 2-3 lifelong therapy -Surgical Incisions: healing appropriately, well approximated, no s/s of infection Middle CT site - still not healed all the way; some minor drainage -- continue to monitor; soap and water/wound care -Physical therapy as outlined in discharge instructions: Ok to drive ok for cardiac rehab -Weight restriction measures 5-8 weeks from date of surgery- 20lbs weight restriction approximate end date: 06/23/25 -Follow up with PCP and Cards has follow up with Dr. Wolf scheduled -Plan follow up as needed. Patient to call with any questions or concerns. They verbalized understanding Patient was seen today via Telehealth by agreement and consent. I used the following Telehealth technology: Audio capability only. Total length of call 14 minutes. The patient was offered and advised video for a more comprehensive evaluation, but the patient declined or was unable to use video. Patient location: Patient Location: Home. This patient encounter is appropriate and reasonable under the circumstances: patient request . The patient has been advised of the potential risks and limitations of this mode of treatment (including but not limited to the absence of in-person examination) and has agreed to be treated in a remote fashion in spite of them. Any and all of the patient's/patient's family's questions on this issue have been answered and I have made no promises or guarantees to the patient. The patient has also been advised to contact this office for worsening conditions or problems, and seek emergency medical treatment and/or call 911 if the patient deems either necessary. The patient stated that they are currently in the [facility]. If the patient is a minor, permission has been obtained by the parent or guardian for the patient to receive medical care at this visit. Patient identification was verified at the start of the visit: yes Total time spent on this encounter: 20 Subjective HPI: 55 y.o. male w pmHx of severe , CHF, HTN and recent ischemic stroke was seen in OP valve clinic for surgical evaluation. Of note patient was admitted to [facility] on 03/04/25 for stroke like symptoms, with MRI revealing four tiny acute embolic infarcts in the right frontal and occipital lobes, and left parietal lobe. Pt was treated with TNK and had drastic improvement in symptoms. During further workup, a transthoracic echo was obtained, which demonstrated EF 55%, LA and RA moderately dilated, and severe aortic valve stenosis concerning for potential etiology of cryptogenic stroke, peak/mean gradients 84/53 mm Hg, LITO 1.0 cm^2. He consent and was taken to the operating room for AVR and PFO repair with Dr. Ulloa on 04/28/25. Postoperative course patient developed rate controlled afib - no prior history. He was loaded with amiodarone and due to [facility] valve d/c'ed on OAC. Once medically optimized and hemodynamically stable. He was discharged home. Patient was not able to receive home care. Coordinated INR draws with Nadir. Will need ECHO in 3 months to assess valve. He was discharged home on POD #5 on 05/03/25. Ok with Dr. Ulloa even though INR 1.9. 05/11/25: 55 y.o. male who presents today for post op follow up. -Medications reviewed: compliant; no additional lasix needed at this time. -Pain is controlled. Currently taking OTC if needed -Incisions healing appropriately with no signs of infection and well approximated. MSI tape removed from incision. -Weight restriction discussed, ROM exercises discussed.Not ready to drive not ready for cardiac rehab -Other complaints: Patient doing well postoperatively. He is getting around and walking every day. Does get a little short of breath with ambulating and going up steps but feels he is doing better with stairs then prior to surgery. Pain controlled. Only real issues that he has is he is having a hard time sleeping. Wants to give it more time. But may try melatonin. INR check today with [facility] INR 1.9 - dose adjusted. 06/01/25: 55 y.o. male who was called today for post op follow up. He is doing well overall. Not back to were he wants to be but did stated that he feels better than how he did before surgery. Does complain of some muscle skeletal pain on his upper back and shoulders. Also notices at times on the chest wall. States if feels like a nerve pain. Not constant but (more content not included)... Normal [facility] POCT INRon 05-25-2025 INR Coag (Bld) [Relative time] 3 {INR} High 0.9 - 1.1 [facility] Interpretation and review of laboratory results Abnormal [facility] Performed by: [facility], [address] [place], [place] [id number] CLIA ID: [id number] [facility] Progress Noteon 05-25-2025 Progress Note [facility] Anticoagulation Management Service (NADIR) Anticoagulation Clinic [address] [place] [address], [address], [place] [address] Jose Paniagua (1970) presents to the [facility] clinic today for follow-up warfarin visit. The primary encounter diagnosis was Severe aortic stenosis. A diagnosis of Status post mechanical aortic valve replacement was also pertinent to this visit. and has a goal INR 2.0-3.0. Pt has Coumadin 3mg tablets and at last visit was instructed to take 4.5mg on Tues & Sat and 3mg on all other days . Pt confirms taking this dose and adherence to current regimen: yes Any changes in prescriptions, OTC, and/or herbal medications: yes, amiodarone dose was reduced to 200 mg daily last week. Changes in alcohol, tobacco, or marijuana use: yes Any recent hospitalizations or ED visits: no Any recent falls or head trauma: no Any changes in diet (vit K): yes, have been out of town so not as many salads as he normally eats. Upcoming surgeries or procedure: no Does pt need refills on warfarin prescription: no Review of Systems Constitutional: Negative for activity change, appetite change and fatigue. HENT: Negative for nosebleeds. Respiratory: Negative for shortness of breath. Cardiovascular: Positive for leg swelling (chronic unchanged. resolves with elevation). Negative for chest pain. Gastrointestinal: Negative for blood in stool, diarrhea, nausea and vomiting. Genitourinary: Negative for hematuria. Neurological: Negative for weakness, light-headedness and headaches. Hematological: Does not bruise/bleed easily. Objective Vitals: 05/25/25 1115 BP: (!) 142/84 Pulse: 70 Weight: 255 lb (116 kg) Assessment Lab Results Component Value Date INR 3.0 (H) 05/25/2025 INR 2.7 (H) 05/18/2025 INR 1.9 (H) 05/11/2025 INR 2.8 (A) 05/05/2025 INR 1.9 (H) 05/03/2025 Plan INR is therapeutic Dosin.5 mg every Tue, Sat; 3 mg all other days Next INR Check: 06/08/2025 Patient educated on the following: dietary/lifestyle considerations and Vitamin K content and consistency Patient care coordination completed: N/A Positive ROS findings are: chronic, no follow-up necessary Bright was instructed to notify [facility] of any unusual bruising or active/uncontrollabl e bleeding, medication changes within 24 hours, missed doses, dietary changes, illnesses or hospitalizations, and upcoming surgeries. Patient given written instructions. Patient expressed understanding utilizing the teach back method. Discharged ambulatory in no apparent distress. Time spent 12 Minutes Cullen Lawrence RN Normal [facility] - Coagulationon 0 05-18-2025 INR Coag (Bld) [Relative time] 2.7 {INR} High 0.9 - 1.1 [facility] No Panel Informationon 05-18 Interpretation and review of laboratory results Abnormal [facility]: [facility], [address] [place] [id number] CLIA ID: [id number] [facility] Progress Noteon 05-18-2025 Progress Note [facility] Anticoagulation Management Service (NADIR) Anticoagulation Clinic [address] [place] [address], [address], [place] [address] Jose Paniagua (1970) presents to the [facility] clinic today for follow-up warfarin visit. The primary encounter diagnosis was Severe aortic stenosis. A diagnosis of Status post mechanical aortic valve replacement was also pertinent to this visit. and has a goal INR 2.0-3.0. Pt has Coumadin 3mg tablets and at last visit was instructed to take 4.5mg on & Sat and 3mg on all other days. Pt confirms taking this dose and adherence to current regimen: yes Any changes in prescriptions, OTC, and/or herbal medications: yes, Decreased Amiodarone daily dose from 800mg to 200mg yesterday (05/17), will continue 200mg for the next 60 days Changes in alcohol, tobacco, or marijuana use: no Any recent hospitalizations or ED visits: no Any recent falls or head trauma: no Any changes in diet (vit K): no Upcoming surgeries or procedure: no Does pt need refills on warfarin prescription: [facility] [address] [place] [address] - [address] [place] [address] Review of Systems Constitutional: Negative for activity change, appetite change and fatigue. HENT: Negative for nosebleeds. Respiratory: Positive for shortness of breath (05/16, resolved on its own). Cardiovascular: Positive for leg swelling (05/16 - right leg swelling, gained 2lbs overnight, resolved on its own). Negative for chest pain. Gastrointestinal: Negative for blood in stool, diarrhea, nausea and vomiting. Genitourinary: Negative for hematuria. Neurological: Negative for weakness, light-headedness and headaches. Hematological: Does not bruise/bleed easily. Objective Vitals: 05/18/25 1127 BP: 127/79 Pulse: 79 Weight: 254 lb 12.8 oz (116 kg) Assessment Lab Results Component Value Date INR 2.7 (H) 05/18/2025 INR 1.9 (H) 05/11/2025 INR 2.8 (A) 05/05/2025 INR 1.9 (H) 05/03/2025 INR 1.5 (H) 05/02/2025 Plan INR is therapeutic 2.7; Amiodarone dose decreased but will follow up next week to see if INR affected. Dosin.5mg on & Sat and 3mg on all other days Next INR Check: 05/25 Patient educated on the following: medication adherence and medication interactions Patient care coordination completed: medication list reviewed and updated and Refill Sent Positive ROS findings are: acute, pt instructed to follow-up with provider Bright was instructed to notify [facility] of any unusual bruising or active/uncontrollabl e bleeding, medication changes within 24 hours, missed doses, dietary changes, illnesses or hospitalizations, and upcoming surgeries. Patient given written instructions. Patient expressed understanding utilizing the teach back method. Discharged ambulatory in no apparent distress. Time spent 30 Minutes Arik Gilliland staffed with Patricia Vyas, BCACP, CACP [facility] 36on 05-15-2025 36 Melatonin sent to pharmacy [facility] 36 S: Patient spoke with [facility] nurse regarding sleep issues since surgery. Best Call back: [phone] B: Aortic valve replacement 04/28/25; sleeping has been a problem since surgery, melantonin used per patient during hospital stay. Has not slept since home. A: No fever, chills, or body aches. Pain controlled well with tylenol, but states very mild discomfort now. Not using oxycodone at all. Ambulating during day often. Patient states no other issues, but cannot sleep. Has tried reclining in a chair, right arm seems restless at night, but no other issues noted. R: Home care provided: suggested trying the melatonin used in hospital and will report sleeping issues to boom conveyor operator, DENTAL TECHNOLOGIST Concha, who sent a prescription to the pharmacy for Melatonin 5mg, leave voicemail for patient explaining prescription is at pharmacy, she wants him to start at 5mg versus 3 mg, also asked him to update office if sleeping continues to be an issue. Patient instructed to call back with new or worsening symptoms. Reason for Disposition [1] Caller has NON-URGENT question AND [2] triager unable to answer question Answer Assessment - Initial Assessment Questions See notes Protocols used: Post-Op Symptoms and [id number] Normal [facility] Laboratory - Coagulationon 0 05-11-2025 INR Coag (Bld) [Relative time] 1.9 {INR} High 0.9 - 1.1 [facility] No Panel Informationon 05-11 Interpretation and review of laboratory results Abnormal [facility] Performed by: [facility], [address] [place] [address], [facility] [address] CLIA ID: [id number] [facility] Office Visiton 05-11-2025 Follow-up visit [id number] Bright Keen 1970 M Date Provider Department Center 05/11/2025 [id number]-UEMUMIJACEK ALVARADO [facility] CT None No family history on file Level of Service:04680 [place] POSTOP FOLLOW UP VISIT RELATED TO ORIGINAL PX Reason for Visit and Comments: Follow-up [470916] Normal [facility] Progress Noteon 05-11-2025 Progress Note [facility]: [facility] [address] [facility] [address] Dept: [phone] Dept Loc: [phone] Visit type: Established patient - in person Surgery/Procedure: s/p AVR (#25 [facility]) PFO repair and KATY with Dr. Ulloa on 04/28/25 Reason for Visit: post op follow up Assessment/Plan Diagnosis: Severe s/p AVR [facility] CHF POAF Plan: POD#13 Day from Discharge (05/03/25): # 8 -Reviewed current meds: continue as ordered Continue ASA/statin Amio - POAF - taper Coumadin per [facility] INR goal 2-3 lifelong therapy Inr 1.9 -Surgical Incisions: healing appropriately, well approximated, no s/s of infection -Physical therapy as outlined in discharge instructions: Not ready for Cardiac Rehab Not ready to drive -Weight restriction measures 1-4 weeks from date of surgery- 10lbs weight restriction: 05/26/25 5-8 weeks from date of surgery- 20lbs weight restriction approximate end date: 06/23/25 -Follow up with PCP and Cards - Dr. Jackson -Patient is going to ask PCP for Project Administrative Assistant in [place] - he would like one down there. If unable; ok for [facility]. -Plan follow up 3 week virtual visit. Patient to call with any questions or concerns. They verbalized understanding Subjective HPI: 55 y.o. male w pmHx of severe , CHF, HTN and recent ischemic stroke was seen in OP valve clinic for surgical evaluation. Of note patient was admitted to [facility] on 03/04/25 for stroke like symptoms, with MRI revealing four tiny acute embolic infarcts in the right frontal and occipital lobes, and left parietal lobe. Pt was treated with TNK and had drastic improvement in symptoms. During further workup, a transthoracic echo was obtained, which demonstrated EF 55%, LA and RA moderately dilated, and severe aortic valve stenosis concerning for potential etiology of cryptogenic stroke, peak/mean gradients 84/53 mm Hg, LITO 1.0 cm^2. He consent and was taken to the operating room for AVR and PFO repair with Dr. Ulloa on 04/28/25. Postoperative course patient developed rate controlled afib - no prior history. He was loaded with amiodarone and due to [facility] valve d/c'ed on OAC. Once medically optimized and hemodynamically stable. He was discharged home. Patient was not able to receive home care. Coordinated INR draws with Nadir. Will need ECHO in 3 months to assess valve. He was discharged home on POD #5 on 05/03/25. Ok with Dr. Ulloa even though INR 1.9. 05/11/25: 55 y.o. male who presents today for post op follow up. -Medications reviewed: compliant; no additional lasix needed at this time. -Pain is controlled. Currently taking OTC if needed -Incisions healing appropriately with no signs of infection and well approximated. MSI tape removed from incision. -Weight restriction discussed, ROM exercises discussed.Not ready to drive not ready for cardiac rehab -Other complaints: Patient doing well postoperatively. He is getting around and walking every day. Does get a little short of breath with ambulating and going up steps but feels he is doing better with stairs then prior to surgery. Pain controlled. Only real issues that he has is he is having a hard time sleeping. Wants to give it more time. But may try melatonin. INR check today with [facility] INR 1.9 - dose adjusted. Objective Vitals: 05/11/25 1124 BP: 138/80 Pulse: 86 Physical Exam Cardiovascular: Rate and Rhythm: Normal rate and regular rhythm. Heart sounds: Normal heart sounds. No murmur heard. No friction rub. Pulmonary: Effort: Pulmonary effort is normal. Skin: General: Skin is warm and dry. Capillary Refill: Capillary refill takes less than 2 seconds. Findings: Bruising and ecchymosis present. Comments: Surgical Incisions: well approximate; clean dry with no drainage noted. Surrounding skin no redness, warmth, or signs of infection noted. Neurological: Mental Status: He is alert. Psychiatric: Behavior: Behavior is cooperative. Labs/Imaging/Testing : reviewed EMR, see A&P for pertinent diagnostic results related to office visit Disclaimer INFORMED CONSENT:The nature and purpose of the proposed treatment or procedure have been discussed. The risks and benefits of the proposed treatment or procedures have been reviewed. Alternatives have been reviewed in addition to the risks and benefits of not receiving treatments or undergoing procedures. Pursuant to this discussion, the patient agrees to undergo the proposed treatment or procedure. Captured images seen in this note from are not a substitute for a comprehensive interpretation of the entire data set as reflected by the interpreting physician with regard to radiology, echocardiography, and other diagnostic images. This note may have been dictated using [employer] Edition 2.6 and/or AFrame Digital Voice Recognition Feature. The document was proofread, however unrecognized voice recognition field service poultry technician errors may (more content not included)... Normal [facility] Progress Note [facility] Anticoagulation Management Service ([facility]) Anticoagulation Clinic [address] [place] [address], [address], [place] [address] Jose MC Paniagua (1970) presents to the [facility] clinic today for initial warfarin visit. The primary encounter diagnosis was Severe aortic stenosis. A diagnosis of Status post mechanical aortic valve replacement was also pertinent to this visit. and has a goal INR 2.0-3.0. Pt has Coumadin 3mg tablets and at last visit was instructed to take 3 mg daily . Pt confirms taking this dose and adherence to current regimen: yes Any changes in prescriptions, OTC, and/or herbal medications: yes, currently taking amiodarone and will reduce doseage next week. Changes in alcohol, tobacco, or marijuana use: no use Any recent hospitalizations or ED visits: yes, recent AVR Any recent falls or head trauma: no Any changes in diet (vit K): no, is eating consistently with vit K foods Upcoming surgeries or procedure: no Does pt need refills on warfarin prescription: no Review of Systems Constitutional: Positive for fatigue. Negative for activity change and appetite change. HENT: Negative for nosebleeds. Respiratory: Negative for shortness of breath. Cardiovascular: Positive for chest pain (acute post op chest pain). Negative for leg swelling. Gastrointestinal: Negative for blood in stool, diarrhea, nausea and vomiting. Genitourinary: Negative for hematuria. Neurological: Negative for weakness, light-headedness and headaches. Hematological: Does not bruise/bleed easily. Objective Vitals: 05/11/25 1010 BP: (!) 149/82 Pulse: 80 Weight: 255 lb 6.4 oz (116 kg) Assessment Lab Results Component Value Date INR 1.9 (H) 05/11/2025 INR 2.8 (A) 05/05/2025 INR 1.9 (H) 05/03/2025 INR 1.5 (H) 05/02/2025 INR 1.0 05/01/2025 Plan INR is subtherapeutic d/t new start. Amiodarone dose will be reduced next week. Dosing: take 4.5 mg today and Saturday; 3 mg all other days Next INR Check: 05/18/2025 Patient educated on the following: dietary/lifestyle considerations and Vitamin K content and consistency Patient care coordination completed: N/A Positive ROS findings are: no follow up necessary for acute post op pain. Seeing CTS today Bright was instructed to notify NADIR of any unusual bruising or active/uncontrollabl e bleeding, medication changes within 24 hours, missed doses, dietary changes, illnesses or hospitalizations, and upcoming surgeries. Patient given written instructions. Patient expressed understanding utilizing the teach back method. Discharged ambulatory in no apparent distress. Time spent 30 Minutes Cullen Lawrence RN staffed with Lilliam, Patricia, BCACP, CACP [facility] 36on 05-06-2025 36 Left voicemail for pt [facility] 36 Refill of atorvastatin 80mg daily sent to pharmacy- I did change it from 2- 40mg pills to 1- 80mg pill if you can let the patient know to only take 1 pill. Thanks! [facility] Progress Noteon 05-06-2025 Progress Note Results received via faxed. [facility] Progress Note [facility] Anticoagulation Management Service ([facility]) Anticoagulation Clinic [address] [place] [address], [address], [place] [address] Subjective MC Paniagua (1970) had INR completed by patient's own home INR meter, visit was completed by phone- audio only. The primary encounter diagnosis was Severe aortic stenosis. A diagnosis of Status post mechanical aortic valve replacement was also pertinent to this visit. and has a goal INR 2.0-3.0. Pt has Coumadin 3mg tablets and at last visit was instructed to take 3mg daily . Pt confirms taking this dose and adherence to current regimen: yes Pt denies any pertinent medication changes, diet changes, upcoming surgeries, bleeding, falls or head trauma with the following exceptions: No Changes Review of Systems Denies bleeding Assessment Lab Results Component Value Date INR 2.8 (A) 05/05/2025 INR 1.9 (H) 05/03/2025 INR 1.5 (H) 05/02/2025 INR 1.0 05/01/2025 INR 1.0 04/30/2025 Plan INR is therapeutic Dosing: continue 3 mg daily until seen in office 05/11/2025 Next INR Check: 05/11/2025 Patient given verbal instructions. Patient expressed understanding utilizing the teach back method. Patient educated on the following: dietary/lifestyle considerations and Vitamin K content and consistency Patient care coordination completed: N/A Time spent 12 Minutes Cullen Lawrence RN staffed with Racquel Bradford PharmD, [facility] 36on 05-05-2025 36 Pt was discharged on 05/03/25. His previous prescription for Lipitor was cancelled since the dose was increased after surgery. Pt needs new prescription sent to his pharmacy. Pharmacy confirmed. Please advise. s/p AVR (#25 [facility]) PFO repair and KATY with Dr. Ulloa on 04/28/25 [facility] PROTHROMBIN TIME AND INRon 0 05-05-2025 INR Coag (PPP) [Relative time] 2.8 {INR} High 0.8 - 1.2 [facility] Comment on above: Result Comment: T HE HEMOSIL THROMBOPLASTIN REAGENT USED IN THE PROTHROMBIN TIME TEST INTERACTS WITH THE DRUG CUBICIN (DAPTOMYCIN) AND WILL RESULT IN FALSELY ELEVATED PT / INR RESULTS INR INTERPRETATION INR INDICATION PREVENTION AND TREATMENT OF THROMBOEMBOLISM ASSOCIATED WITH: 2.0 - 3.0 ATRIAL FIBRILLATION, BIOPROSTHETIC HEART VALVES, PULMONARY EMBOLISM, VENOUS THROMBOSIS, SYSTEMIC EMBOLISM POST MYOCARDIAL INFARCTION 2.5 - 3.5 MECHANICAL HEART VALVES Performed By: #### 2 [id number] #### [facility],[address] [place] [address] PROTHROMBIN TIME AND INR Normal [facility] Comment on above: Result Comment: PROT HROMBIN TIME AND INR Performed By: #### 2 [id number] #### [facility],[address] [place] [address] PT-COUMADIN 32.5 sec High 9.3 - 14.1 [facility] Comment on above: Performed By: #### 2 [id number] #### [facility],[address] [place] [address] ECG 12-LEADon 05-04-2025 ECG 12-LEAD IMPRESSION: Atrial fibrillation Multiple ventricular premature complexes Anterior infarct, old Prolonged QT interval Electronically Signed On 05-04-2025 16:28:28 EDT by Jose Luis Catalan [facility] ECG 12-LEAD IMPRESSION: Sinus rhythm Ventricular premature complex Prolonged SC interval Abnormal T, consider ischemia, lateral leads Minimal ST elevation, inferior leads Electronically Signed On 05-04-2025 14:37:05 EDT by Sergey Mathew [facility] [id number] 05-03-2025 [id number] Epicardial pacing wire pulled by Dr. Ulloa without difficulty per protocol. Patient and nurse educated on possible complications. Patient tolerated well. Will continue to monitor. Normal [facility] BASIC METABOLIC PANELon 06-0 2-2025 Anion gap [Moles/Vol] 7 mmol/L Normal 3-13 [facility] Comment on above: Performed By: #### L AB103, LAB15 #### Groover Operator: STEFANIE WARD ([id number]) [facility] ([facility]) [address] [place] [address] Calcium [Mass/Vol] 8.7 mg/dL Normal 8.4-10.2 [facility] Comment on above: Performed By: #### L AB103, LAB15 #### Groover Operator: STEFANIE WARD ([id number]) [facility] [address] [place] [address] Chloride [Moles/Vol] 103 mmol/L Normal 98-107 [facility] Comment on above: Performed By: #### L AB103, LAB15 #### Groover Operator: STEFANIE WARD ([id number]) [facility] ([facility]) [address] [place] [address] CO2 [Moles/Vol] 28 mmol/L Normal 22-29 [facility] Comment on above: Performed By: #### L AB103, LAB15 #### Groover Operator: STEFANIE WARD ([id number]) [facility] ([facility]) [address] [place] [address] Creatinine [Mass/Vol] 0.82 mg/dL Normal 0.72-1.25 [facility] Comment on above: Performed By: #### L AB103, LAB15 #### Groover Operator: STEFANIE WARD ([id number]) [facility] ([facility]) [address] [place] [address] GLOMERULAR FILTRATION RATE ML/MIN/1.73 SQ M.PREDICTED >90.0 Normal >60.0 [facility] Comment on above: Result Comment: Calc ulation based on the Chronic Kidney Disease Epidemiology Collaboration (CKD-EPI) equation refit without adjustment for race Performed By: #### L AB103, LAB15 #### Groover Operator: STEFANIE WARD ([id number]) [facility] ([facility]) [address] [place] [address] [place] Glucose [Mass/Vol] 103 mg/dL High 74-100 [facility] Comment on above: Performed By: #### L AB103, LAB15 #### Groover Operator: STEFANIE WARD ([id number]) [facility]) [address] [place] [address] Potassium [Moles/Vol] 3.6 mmol/L Normal 3.5-5.1 [facility] Comment on above: Result Comment: [facility] potassium values may be up to 0.5 mmol/L lower than serum values. Performed By: #### L AB103, LAB15 #### Groover Operator: STEFANIE WARD ([id number]) [facility] ([facility]) [address] [place] [address] Sodium [Moles/Vol] 138 mmol/L Normal 136-145 [facility] Comment on above: Performed By: #### L AB103, LAB15 #### Groover Operator: STEFANIE WARD ([id number]) [facility] ([facility]) [address] [place] [address] Urea nitrogen [Mass/Vol] 17 mg/dL Normal 9-23 [facility] Comment on above: Performed By: #### L AB103, LAB15 #### Groover Operator: STEFANIE WARD ([id number]) [facility]) [address] [place] [address] Basic metabolic 1998 panelon 05-03-2025 Anion gap [Moles/Vol] 7 mmol/L 3 - 13 mmol/L [facility] Calcium [Mass/Vol] 8.7 mg/dL 8.4 - 10. 2 mg/dL [facility] Chloride [Moles/Vol] 103 mmol/L 98 - 10 7 mmol/L [facility] CO2 [Moles/Vol] 28 mmol/L 22 - 29 mmol/L [facility] Creatinine [Mass/Vol] 0.82 mg/dL 0.72 - 1.25 mg/dL [facility] GFR/1.73 sq M.predicted (S/P/Bld) [Vol rate/Area] - PINF [facility] Comment on above: Calculation based on the Chronic Kidney Disease Epidemiology Collaboration (CKD-EPI) equation refit without adjustment for race Glucose [Mass/Vol] 103 mg/dL High 74 - 100 mg/dL [facility] Interpretation and review of laboratory results Abnormal [facility] Potassium [Moles/Vol] 3.6 mmol/L 3.5 - 5.1 mmol/L [facility] Comment on above: Plasma potassium rena ues may be up to 0.5 mmol/L lower than serum values. Sodium [Moles/Vol] 138 mmol/L 136 - 145 mmol/L [facility] Urea nitrogen [Mass/Vol] 17 mg/dL 9 - 23 mg/d L [facility] CBC (HEMOGRAM)on 05-03-2025 Erythrocyte distribution width (RBC) [Ratio] 13.7 % Normal 11.5-15.0 [facility] Comment on above: Performed By: #### L AB294 ####Groover Operator: STEFANIE WARD ([phone])[facility])[address] [place] [address] Hematocrit (Bld) [Volume fraction] 34.2 % Low 40.0-52.0 [facility] Comment on above: Performed By: #### L AB294 ####Groover Operator: STEFANIE WARD ([id number])[address] Hemoglobin (Bld) [Mass/Vol] 11.6 g/dL Low 13.0-18.0 [facility] Comment on above: Performed By: #### L AB294 ####Groover Operator: STEFANIE WARD ([id number])[address] MCH (RBC) [Entitic mass] 28.2 pg Normal 26.0-34.0 [facility] Comment on above: Performed By: #### L AB294 ####Groover Operator: STEFANIE WARD ([id number])[address] MCHC 33.9 % Normal 30.5-36.0 [facility] Comment on above: Performed By: #### L AB294 ####Groover Operator: STEFANIE [id number])[facility])[address] [place] [address] MCV (RBC) [Entitic vol] 83.2 fL Normal 77.0-99.0 S [facility] Comment on above: Performed By: #### L AB294 ####Groover Operator: STEFANIE WARD ([id number])[facility])[address] [place] [address] Platelet mean volume (Bld) [Entitic vol] 10.9 fL Normal 9.0-12.7 [facility] Comment on above: Performed By: #### L AB294 ####Groover Operator: STEFANIE WARD ([id number])[facility])[address] [place] [address] Platelets (Bld) [#/Vol] 240 10*3/uL Normal 140-440 [facility] Comment on above: Performed By: #### L AB294 ####Groover Operator: STEFANIE WARD ([phone])[facility])[address] [place] [address] RBC (Bld) [#/Vol] 4.11 10*6/uL Low 4.40-5.90 [facility] Comment on above: Performed By: #### L AB294 ####Groover Operator: STEFANIE WARD ([id number])[facility])[address] [place] [address] WBC (Bld) [#/Vol] 7.2 10*3/uL Normal 3.6-10.7 [facility] Comment on above: Performed By: #### L AB294 ####Groover Operator: STEFANIE WARD ([id number])[facility])[address] [place] [address] CBC panel Auto (Bld)on 05-03 Erythrocyte distribution width (RBC) [Ratio] 13.7 % 11.5 - 15.0 % [facility] Hematocrit (Bld) [Volume fraction] 34.2 % Low 40.0 - 52.0 % [facility] Hemoglobin (Bld) [Mass/Vol] 11.6 g/dL Low 13.0 - 18.0 g/dL [facility] Interpretation and review of laboratory results Abnormal [facility] MCH (RBC) [Entitic mass] 28.2 pg 26. 0 - 34.0 pg [facility] MCHC (RBC) [Mass/Vol] 33.9 % 30.5 - 36.0 % [facility] MCV (RBC) [Entitic vol] 83.2 fL 77.0 - 99.0 fL [facility] Platelet mean volume (Bld) [Entitic vol] 10.9 fL 9.0 - 12.7 fL [facility] Platelets (Bld) [#/Vol] 240 10*3/uL 140 - 440 10*3/uL [facility] RBC (Bld) [#/Vol] 4.11 10*6/uL Low 4.40 - 5.9 0 10*6/uL [facility] WBC (Bld) [#/Vol] 7.2 10*3/uL 3.6 - 10.7 10*3/uL [facility] - Chemistry and C hemistry - challengeon 05-03-2025 Magnesium [Mass/Vol] 2 mg/dL 1.6 - 2 .6 mg/dL [facility] - Coagulationon 0 05-03-2025 PT Coag (Bld) [Time] 19.8 s High 9.0 - 12.0 s [facility] MAGNESIUMon 05-03-2025 Magnesium [Mass/Vol] 2.0 mg/dL Normal 1.6-2.6 [facility] Comment on above: Result Comment: KIKO Solorio COMMENTS: Higher values can be expected in females during menses. Performed By: #### L AB103, LAB15 #### Groover Operator: STEFANIE WARD ([id number]) [facility] ([facility]) [address] [place] [address] Magnesium [Mass/Vol]on 05-03 Interpretation and review of laboratory results Normal [facility] Higher values can be expected in females during menses. [facility] No Panel Informationon 05-03 [facility] PROTHROMBIN TIMEon INR Coag (PPP) [Relative time] 1.9 {INR} High 0.9-1.1 [facility] Comment on above: Result Comment: Nabeel mmended Anticoagulant Therapy: SEE BELOW ----- INR of 2.0 - 3.0 : - Prophylaxis of Venous Thrombosis (high-risk surgery) - Treatment of Venous Thrombosis - Treatment of Pulmonary Embolism (Includes tissue heart valves, Acute Myocardial Infarction to prevent systemic embolism, Valvular Heart Disease, and Atrial Fibrillation) ----- INR of 2.5 - 3.5 : - Mechanical Prosthetic Valves (high risk) - If oral anticoagulant therapy is used to prevent Myocardial Infarction Performed By: #### L [id number] ####Groover Operator: STEFANIE WARD ([id number])[facility] ([facility])[address] [place] [address] PT Coag (PPP) [Time] 19.8 s High 9.0-12.0 [facility] Comment on above: Performed By: #### L AB320 ####Groover Operator: STEFANIE WARD ([id number])[facility] ([facility])[address] [place] [address] PT Coag (Bld) [Time]on 05-03 INR Coag (PPP) [Relative time] 1.9 {INR} High 0.9 - 1.1 [facility] Comment on above: Recommended Anticoag ulant Therapy: SEE BELOW ----- INR of 2.0 - 3.0 : - Prophylaxis of Venous Thrombosis (high-risk surgery) - Treatment of Venous Thrombosis - Treatment of Pulmonary Embolism (Includes tissue heart valves, Acute Myocardial Infarction to prevent systemic embolism, Valvular Heart Disease, and Atrial Fibrillation) ----- INR of 2.5 - 3.5 : - Mechanical Prosthetic Valves (high risk) - If oral anticoagulant therapy is used to prevent Myocardial Infarction Interpretation and review of laboratory results Abnormal [facility] Progress Noteon 05-03-2025 Progress Note Bright Keen is a 55 y.o. male admitted on 04/28/2025 for Aortic stenosis, severe. Patient is newly referred to the [facility] clinic for warfarin management. Pt was referred by KISHA Pitt CNP. Pt is on warfarin for mechanical AVR and has a goal INR 2.0 - 3.0. Duration of therapy= lifelong. Reason for warfarin instead of DOAC: mechanical valve Pt discharged to home on 05/03. Updated tracker with hospital doses. Warfarin dosing instructions: 3mg daily New interacting meds: amiodarone Next [facility] appt: Saturday 05/05 - to go to [facility] lab (faxed order to them) so will likely get results on 05/06. Instructed pt to take 3mg on Saturday night if we haven't called. Also scheduled first visit at [facility] on 05/11 when he sees CTS. Normal [facility] Progress Note Updated episode. Normal [facility] Progress Note PHYSICAL THERAPY [facility] Treatment Note Name/MRN: Bright Keen ([id number]) Date of : 1970 Age: 55 y.o. Room/Bed: T1-111/T1-111 A Discharge Recommendation: Home with assist PRN, Outpatient PT Other: TBD Assessment Patient is independent with sit to stand transfers as well as ambulation. Patient was able to successfully complete 4 stairs x3 with independence. Patient has met most goals and is adequate for discharge. Would recommend home with assist as needed along with outpatient PT at discharge. Subjective Patient was up in chair when PT arrived. Patient was cleared for PT by RN. Pain: Patient reported pain in the sternum but did not quantify pain Medical Precautions: No active isolations Proper PPE donned/doffed in accordance with facility standards. Fall Risk: De La Torre Fall Risk Score: 50 (High Risk) Precautions/Restrict ions: Sternal Precautions: No lifting greater than 10 lbs. Ok for modified UE precautions using Keep Your Move in the Tube technique Lines/Drains/Airways : tele Skin care precautions Overall Cognitive Status: Exceptions - Arousal/alertness: appropriate responses to stimuli - Following commands: follows all commands without difficulty Overall Orientation Status: Oriented to Person Family/Caregiver Present: spouse Objective Transfers/Mobility Sit to stand: Independent Stand to sit: Independent Reviewed sternal precautions before transfer Device(s) used: None Ambulation Ambulation 1 Assistive device(s) used: Used a nezzie for the first 50 feet but then said stated he did not need assistive device anymore Assist level: Independent Distance (ft): 350 Quality of gait: equal step length, slow scotty Balance During Session: Posture: fair Standing - Static: Patient was able to use restroom and when asked if patient needed office assistant receptionist patient denied Standing - Dynamic: While walking, patient wanted to stretch out legs and did one legged stance with hand hold assist for minimal support Stairs Stairs 1 Assistive device(s) used: None Assist level: Independent # of steps: 4 x3 Rails: L going up and R going down Additional factors: reciprocal going up, reciprocal going down Plan Continue acute PT per plan of care. Safety/Education Safety Safety Devices in place: call light within reach and left in chair Restraints: No Education Education Given To: patient Education Provided: PT Role, PT Goals, Gait Training, and Precautions Education Method: Verbal and Demonstration Barriers to Learning: None Education Outcome: Verbalized Understanding and Demonstrated Understanding Outcome Measures AM-PAC AM-PAC Inpatient Mobility Raw Score : 23 AM-PAC Inpatient Mobility Raw Score (No Stairs) : 20 JH-HLM JH-HLM Score: Walked 250 ft or more (i.e. several laps on unit) Goals Patient Stated Goal: to get better Encounter Problems Encounter Problems (Active) Cardiac Patient will perform bed mobility with modified independence in order to improve independence and prepare for out of bed mobility. (Not Addressed) Start: 04/29/25 Expected End: 05/27/25 Patient will complete sit to stand transfer with modified independence in order to improve safety and prepare for out of bed mobility. (Completed) Start: 04/29/25 Expected End: 05/27/25 Resolved: 05/03/25 Patient will ambulate 350 feet or ambulate 5 minutes with modified independence with RPE of 14 or lower. (Completed) Start: 04/29/25 Expected End: 05/27/25 Resolved: 05/03/25 Patient will ascend and descend 4 # stairs with supervision rail for balance only. (Completed) Start: 04/29/25 Expected End: 05/27/25 Resolved: 05/03/25 Patient will be independent with P&C exercises. (Not Addressed) Start: 04/29/25 Expected End: 05/27/25 Patient will be independent with managing secretions and home walking program. (Progressing) Start: 04/29/25 Expected End: 05/27/25 Pain - Adult Therapy Time Individual Co-treatment Time In 0956 Time Out 1008 Minutes 12 Roberto White, SPT Normal [facility] Progress Note [facility] Anticoagulation Management Service (NADIR) Inpatient Warfarin Consult HPI: Bright Keen is a 55 y.o. male admitted on 04/28/2025 for Aortic stenosis, severe. Medical History[1] Patient is newly referred to the [facility] clinic for warfarin management. Pt was referred by KISHA Pitt CNP. Pt is on warfarin for mechanical AVR and has a goal INR 2.0 - 3.0. Duration of therapy= lifelong. Reason for warfarin instead of DOAC: mechanical valve PCP: Asher Jesus PA-C S/sx of bleeding= None beyond surgical bruising and ecchymosis Interacting medications= ASA, amiodarone, Lovenox 40mg, tylenol >2gm Labs: Recent Labs 05/01/25 0320 05/02/25 0529 05/03/25 0434 HGB 11.3* 11.2* 11.6* HCT 34.7* 33.2* 34.2* PLT 122* 181 240 Recent Labs 05/03/25 0434 INR 1.9* Date INR Dose 05/03 1.9 3mg 05/02 1.5 3mg 05/01 1.0 5mg 04/30 1.0 3mg 04/29 1.1 3mg Assessment/Plan: 1. INR is subtherapeutic due to new start warfarin but is rising appropriately and will likely be therapeutic by next check. Will continue warfarin 3 mg today. 2. Will monitor for s/s of bleeding and drug interactions and adjust dose accordingly. 3. Will facilitate NADIR follow-up upon discharge. Plan for discharge today. Patient to continue taking warfarin 3mg daily at discharge and will go to [facility] lab for INR check on Saturday 05/05. NADIR will call him with further instructions. 4. Provided preop education last week. Reviewed with patient today. Jenae Delcid [facility] Consult Service is available daily [phone] via [employer] Secure Chat. If no response, please page [phone]. [1] Past Medical History: Diagnosis Date Heart valve disorder Hyperlipidemia Hypertension Stroke (HCC) no residual Normal [facility] XR CHEST 1 VIEWon 05-03-2025 XR CHEST 1 VIEW Patient Name: BRIGHT KEEN : 1970 Exam Date/Time: 05/03/2025 05:20 Procedure: XR CHEST 1 VIEW Ordering Provider: ALVARADO ANDREW Reason For Exam: Shortness of breath Examination: Portable chest Indication: Shortness of breath Comparison: Previous day Findings: No significant interval change. Findings suggestive of CHF with cardiomegaly, small pleural effusions and question mild pulmonary edema. Median sternotomy changes present. There has been removal of the right IJ central venous catheter. IMPRESSION: Impression: As above. Report Dictated on Electronically Signed By: Tracee Vale MD Electronically Signed Date/Time: 05/03/2025 7:39 AM EDT [facility] XR Chest Single viewon 05-03 Impression: As above. Report Dictated on Electronically Signed By: Tracee Vale MD Electronically Signed Date/Time: 05/03/2025 7:39 AM EDT [facility] Patient Name: BRIGHT KEEN : 1970 Exam Date/Time: 05/03/2025 05:20 Procedure: XR CHEST 1 VIEW Ordering Provider: ALVARADO ANDREW Reason For Exam: Shortness of breath Examination: Portable chest Indication: Shortness of breath Comparison: Previous day Findings: No significant interval change. Findings suggestive of CHF with cardiomegaly, small pleural effusions and question mild pulmonary edema. Median sternotomy changes present. There has been removal of the right IJ central venous catheter. [facility] Tracee Vale MD - 05/03/2025 Patient Name: BRIGHT KEEN : 1970 Exam Date/Time: 05/03/2025 05:20 Procedure: XR CHEST 1 VIEW Ordering Provider: ALVARADO ANDREW Reason For Exam: Shortness of breath Examination: Portable chest Indication: Shortness of breath Comparison: Previous day Findings: No significant interval change. Findings suggestive of CHF with cardiomegaly, small pleural effusions and question mild pulmonary edema. Median sternotomy changes present. There has been removal of the right IJ central venous catheter. IMPRESSION: Impression: As above. Report Dictated on Electronically Signed By: Tracee Vale MD Electronically Signed Date/Time: 05/03/2025 7:39 AM EDT [facility] Radiology Study observation (narrative) [facility] alth XR Chest Single viewOrdered By: Tracee Vale on 05-03-2025 [facility] Work Phone: 30on 05-02-2025 30 Problem: Knowledge Deficit Goal: Patient/family/careg iver demonstrates understanding of disease process, treatment plan, medications, and discharge instructions Outcome: Progressing Problem: Potential for Compromised Skin Integrity Goal: Skin Integrity is Maintained or Improved Outcome: Progressing Goal: Nutritional status is improving Outcome: Progressing Problem: Urinary Incontinence Goal: Perineal skin integrity is maintained or improved Outcome: Progressing Problem: Pain - Adult Goal: Verbalizes/displays adequate comfort level or baseline comfort level Outcome: Progressing Problem: Safety - Adult Goal: Free from fall injury Outcome: Progressing Problem: Discharge Planning Goal: Discharge to home or other facility with appropriate resources Outcome: Progressing Problem: Chronic Conditions and Co-morbidities Goal: Patient's chronic conditions and co-morbidity symptoms are monitored and maintained or improved Outcome: Progressing Problem: Problem Interventions Goal: Assess Nutritional Intake Outcome: Progressing Normal [facility] BASIC METABOLIC PANELon 06-0 Anion gap [Moles/Vol] 10 mmol/L Normal 3-13 [facility] Comment on above: Performed By: #### L AB103, LAB15 ####Groover Operator: STEFANIE WARD ([phone])[address] Calcium [Mass/Vol] 8.4 mg/dL Normal 8.4-10.2 [facility] Comment on above: Performed By: #### L AB103, LAB15 ####Groover Operator: STEFANIE WARD ([phone])[address] Chloride [Moles/Vol] 102 mmol/L Normal 98-107 [facility] Comment on above: Performed By: #### L AB103, LAB15 ####Groover Operator: STEFANIE WARD ([phone])[facility] ([facility])[address] [place] [address] CO2 [Moles/Vol] 23 mmol/L Normal 22-29 [facility] Comment on above: Performed By: #### L AB103, LAB15 ####Groover Operator: STEFANIE WARD ([phone])[facility])[address] [place] [address] Creatinine [Mass/Vol] 0.72 mg/dL Normal 0.72-1.25 [facility] Comment on above: Performed By: #### L AB103, LAB15 ####Groover Operator: STEFANIE WARD ([phone])[facility])[address] [place] [address] GLOMERULAR FILTRATION RATE ML/MIN/1.73 SQ M.PREDICTED >90.0 Normal >60.0 [facility] Comment on above: Result Comment: Calc ulation based on the Chronic Kidney Disease Epidemiology Collaboration (CKD-EPI) equation refit without adjustment for race Performed By: #### L AB103, LAB15 ####Groover Operator: STEFANIE WARD ([phone])[facility])[address] [place] [address] Glucose [Mass/Vol] 121 mg/dL High 74-100 [facility] Comment on above: Performed By: #### L AB103, LAB15 ####Groover Operator: STEFANIE WARD ([phone])[facility])[address] [place] [address] Potassium [Moles/Vol] 3.7 mmol/L Normal 3.5-5.1 [facility] Comment on above: Result Comment: [facility] potassium values may be up to 0.5 mmol/L lower than serum values. Performed By: #### L AB103, LAB15 ####Groover Operator: STEFANIE WARD ([phone])[facility])[address] [place] [address] Sodium [Moles/Vol] 135 mmol/L Low 136-145 [facility] Comment on above: Performed By: #### L AB103, LAB15 ####Groover Operator: STEFANIE WARD ([phone])[facility])[address] [place] [address] Urea nitrogen [Mass/Vol] 14 mg/dL Normal 9-23 [facility] Comment on above: Performed By: #### L AB103, LAB15 ####Groover Operator: STEFANIE WARD ([phone])[facility] ([facility])[address] [place] [address] Basic metabolic 1998 panelon 05-02-2025 Anion gap [Moles/Vol] 10 mmol/L 3 - 13 mmol/L [facility] Calcium [Mass/Vol] 8.4 mg/dL 8.4 - 10. 2 mg/dL [facility] Chloride [Moles/Vol] 102 mmol/L 98 - 10 7 mmol/L [facility] CO2 [Moles/Vol] 23 mmol/L 22 - 29 mmol/L [facility] Creatinine [Mass/Vol] 0.72 mg/dL 0.72 - 1.25 mg/dL [facility] GFR/1.73 sq M.predicted (S/P/Bld) [Vol rate/Area] - PINF [facility] Comment on above: Calculation based on the Chronic Kidney Disease Epidemiology Collaboration (CKD-EPI) equation refit without adjustment for race Glucose [Mass/Vol] 121 mg/dL High 74 - 100 mg/dL [facility] Interpretation and review of laboratory results Abnormal [facility] Potassium [Moles/Vol] 3.7 mmol/L 3.5 - 5.1 mmol/L [facility] Comment on above: Plasma potassium rena ues may be up to 0.5 mmol/L lower than serum values. Sodium [Moles/Vol] 135 mmol/L Low 136 - 145 mmol/L [facility] Urea nitrogen [Mass/Vol] 14 mg/dL 9 - 23 mg/d L [facility] CBC (HEMOGRAM)on 05-02-2025 Erythrocyte distribution width (RBC) [Ratio] 13.7 % Normal 11.5-15.0 [facility] Comment on above: Performed By: #### L AB294 ####Groover Operator: STEFANIE WARD ([phone])[facility] ([facility])[address] [place] [address] Hematocrit (Bld) [Volume fraction] 33.2 % Low 40.0-52.0 [facility] Comment on above: Performed By: #### L AB294 ####Groover Operator: STEFANIE WARD ([phone])[facility])[address] [place] [address] Hemoglobin (Bld) [Mass/Vol] 11.2 g/dL Low 13.0-18.0 [facility] Comment on above: Performed By: #### L AB294 ####Groover Operator: STEFANIE WARD ([phone])[facility])[address] [place] [address] MCH (RBC) [Entitic mass] 27.8 pg Normal 26.0-34.0 [facility] Comment on above: Performed By: #### L AB294 ####Groover Operator: STEFANIE WARD ([phone])[facility] ([facility])[address] [place] [address] MCHC 33.7 % Normal 30.5-36.0 [facility] Comment on above: Performed By: #### L AB294 ####Groover Operator: STEFANIE WARD ([phone])[facility] ([facility])[address] [place] [address] MCV (RBC) [Entitic vol] 82.4 fL Normal 77.0-99.0 [facility] Comment on above: Performed By: #### L AB294 ####Groover Operator: STEFANIE WARD ([phone])[facility] ([facility])[address] [place] [address] Platelet mean volume (Bld) [Entitic vol] 11.6 fL Normal 9.0-12.7 [facility] Comment on above: Performed By: #### L AB294 ####Groover Operator: STEFANIE WARD ([phone])[facility] ([facility])[address] [place] [address] Platelets (Bld) [#/Vol] 181 10*3/uL Normal 140-440 [facility] Comment on above: Performed By: #### L AB294 ####Groover Operator: STEFANIE WARD ([phone])[facility])[address] [place] [address] RBC (Bld) [#/Vol] 4.03 10*6/uL Low 4.40-5.90 [facility] Comment on above: Performed By: #### L AB294 ####Groover Operator: STEFANIE WARD ([phone])[facility])[address] [place] [address] WBC (Bld) [#/Vol] 8.1 10*3/uL Normal 3.6-10.7 [facility] Comment on above: Performed By: #### L AB294 ####Groover Operator: STEFANIE WARD ([phone])[facility])[address] [place] [address] CBC panel Auto (Bld)Ordered By: Chad Savage on 05-02-2025 Erythrocyte distribution width (RBC) [Ratio] 13.7 % 11.5 - 15.0 % [facility] Hematocrit (Bld) [Volume fraction] 33.2 % Low 40.0 - 52.0 % [facility] Hemoglobin (Bld) [Mass/Vol] 11.2 g/dL Low 13.0 - 18.0 g/dL [facility] Interpretation and review of laboratory results Abnormal [facility] MCH (RBC) [Entitic mass] 27.8 pg 26. 0 - 34.0 pg [facility] MCHC (RBC) [Mass/Vol] 33.7 % 30.5 - 36.0 % [facility] MCV (RBC) [Entitic vol] 82.4 fL 77.0 - 99.0 fL [facility] Platelet mean volume (Bld) [Entitic vol] 11.6 fL 9.0 - 12.7 fL [facility] Platelets (Bld) [#/Vol] 181 10*3/uL 140 - 440 10*3/uL [facility] RBC (Bld) [#/Vol] 4.03 10*6/uL Low 4.40 - 5.9 0 10*6/uL [facility] WBC (Bld) [#/Vol] 8.1 10*3/uL 3.6 - 10.7 10*3/uL [facility] - Chemistry and C hemistry - challengeon 05-02-2025 Magnesium [Mass/Vol] 2 mg/dL 1.6 - 2 .6 mg/dL [facility] Laboratory - Coagulationon 0 05-02-2025 PT Coag (Bld) [Time] 15.9 s High 9.0 - 12.0 s [facility] MAGNESIUMon 05-02-2025 Magnesium [Mass/Vol] 2.0 mg/dL Normal 1.6-2.6 [facility] Comment on above: Result Comment: KIKO Solorio COMMENTS: Higher values can be expected in females during menses. Performed By: #### L AB103, LAB15 ####Groover Operator: STEFANIE WARD ([phone])[address] Magnesium [Mass/Vol]on 05-02 Interpretation and review of laboratory results Normal [facility] Higher values can be expected in females during menses. [facility] PROTHROMBIN TIMEon INR Coag (PPP) [Relative time] 1.5 {INR} High 0.9-1.1 [facility] Comment on above: Result Comment: Nabeel mmended Anticoagulant Therapy: SEE BELOW ----- INR of 2.0 - 3.0 : - Prophylaxis of Venous Thrombosis (high-risk surgery) - Treatment of Venous Thrombosis - Treatment of Pulmonary Embolism (Includes tissue heart valves, Acute Myocardial Infarction to prevent systemic embolism, Valvular Heart Disease, and Atrial Fibrillation) ----- INR of 2.5 - 3.5 : - Mechanical Prosthetic Valves (high risk) - If oral anticoagulant therapy is used to prevent Myocardial Infarction Performed By: #### L AB320 ####Groover Operator: STEFANIE WARD ([phone])[facility] ([facility])[address] [place] [address] PT Coag (PPP) [Time] 15.9 s High 9.0-12.0 [facility] Comment on above: Performed By: #### L AB320 ####Groover Operator: STEFANIE WARD ([phone])[facility] ([facility])[address] [place] [address] PT Coag (Bld) [Time]on 05-02 INR Coag (PPP) [Relative time] 1.5 {INR} High 0.9 - 1.1 [facility] Comment on above: Recommended Anticoag ulant Therapy: SEE BELOW ----- INR of 2.0 - 3.0 : - Prophylaxis of Venous Thrombosis (high-risk surgery) - Treatment of Venous Thrombosis - Treatment of Pulmonary Embolism (Includes tissue heart valves, Acute Myocardial Infarction to prevent systemic embolism, Valvular Heart Disease, and Atrial Fibrillation) ----- INR of 2.5 - 3.5 : - Mechanical Prosthetic Valves (high risk) - If oral anticoagulant therapy is used to prevent Myocardial Infarction Interpretation and review of laboratory results Abnormal [facility] Progress Noteon 05-02-2025 Progress Note [facility] Anticoagulation Management Service ([facility]DIR) Inpatient Warfarin Consult HPI: Bright Keen is a 55 y.o. male admitted on 04/28/2025 for Aortic stenosis, severe. Medical History[1] Patient is newly referred to the [facility] clinic for warfarin management. Pt was referred by KISHA Pitt CNP. Pt is on warfarin for mechanical AVR and has a goal INR 2.0 - 3.0. Duration of therapy= lifelong. Reason for warfarin instead of DOAC: mechanical valve PCP: Asher Jesus PA-C S/sx of bleeding= None beyond surgical bruising and ecchymosis Interacting medications= ASA, amiodarone, Lovenox 40mg, tylenol >2gm Labs: Recent Labs 04/30/25 0313 05/01/25 0320 05/02/25 0529 HGB 11.6* 11.3* 11.2* HCT 35.7* 34.7* 33.2* PLT 110* 122* 181 Recent Labs 05/02/25 0529 INR 1.5* Date INR Dose 05/02 1.5 3 mg 05/01 1.0 5mg 04/30 1.0 3mg 04/29 1.1 3mg Assessment/Plan: 1. INR is subtherapeutic due to new start warfarin- on day 4. Will give 3 mg today. 2. Will monitor for s/s of bleeding and drug interactions and adjust dose accordingly. 3. Will facilitate [facility] follow-up upon discharge. 4. [facility] clinic provided preop education last week. Will follow up prior to discharge to see if he has any questions. Anna Rivera PharmD [facility] Consult Service is available daily [phone] via [employer] Secure Chat. If no response, please page [phone]. [1] Past Medical History: Diagnosis Date Heart valve disorder Hyperlipidemia Hypertension Stroke (HCC) no residual Normal [facility] XR CHEST 1 VIEWon 05-02-2025 XR CHEST 1 VIEW Patient Name: BRIGHT KEEN : 1970 Exam Date/Time: 05/02/2025 05:24 Procedure: XR CHEST 1 VIEW Ordering Provider: ALVARADO ANDREW Reason For Exam: Shortness of breath EXAM: XR Chest, 1 View CLINICAL INDICATION: Shortness of breath TECHNIQUE: Frontal view of the chest. COMPARISON: 05/01/2025. FINDINGS: LUNGS AND PLEURAL SPACES: Minimal left basilar atelectasis/infiltra te, unchanged. No pneumothorax. HEART: Heart valve prosthesis. No cardiomegaly. MEDIASTINUM: Unremarkable. Normal mediastinal contour. BONES/JOINTS: Median sternotomy. Thoracic degenerative spondylosis. No acute fracture. TUBES, LINES AND DEVICES: Right IJ catheter tip overlies mid SVC, unchanged. IMPRESSION: Minimal left basilar atelectasis/infiltra te, unchanged. Report Dictated on Electronically Signed By: Chad Moore DO Electronically Signed Date/Time: 05/02/2025 5:49 AM EDT Normal [facility] XR Chest Single viewon 05-02 Minimal left basilar atelectasis/infiltra te, unchanged. Report Dictated on Electronically Signed By: Chad Moore DO Electronically Signed Date/Time: 05/02/2025 5:49 AM EDT [facility] [employer] Patient Name: BRIGHT KEEN : 1970 Exam Date/Time: 05/02/2025 05:24 Procedure: XR CHEST 1 VIEW Ordering Provider: ALVARADO ANDREW Reason For Exam: Shortness of breath EXAM: XR Chest, 1 View CLINICAL INDICATION: Shortness of breath TECHNIQUE: Frontal view of the chest. COMPARISON: 05/01/2025. FINDINGS: LUNGS AND PLEURAL SPACES: Minimal left basilar atelectasis/infiltra te, unchanged. No pneumothorax. HEART: Heart valve prosthesis. No cardiomegaly. MEDIASTINUM: Unremarkable. Normal mediastinal contour. BONES/JOINTS: Median sternotomy. Thoracic degenerative spondylosis. No acute fracture. TUBES, LINES AND DEVICES: Right IJ catheter tip overlies mid SVC, unchanged. [facility] Chad Moore DO - 05/02/2025 [facility] Name: [facility] : 1970 [id number] Exam Date/Time: 05/02/2025 05:24 Procedure: XR CHEST 1 VIEW Ordering Provider: ALVARADO ANDREW Reason For Exam: Shortness of breath EXAM: XR Chest, 1 View CLINICAL INDICATION: Shortness of breath TECHNIQUE: Frontal view of the chest. COMPARISON: 05/01/2025. FINDINGS: LUNGS AND PLEURAL SPACES: Minimal left basilar atelectasis/infiltra te, unchanged. No pneumothorax. HEART: Heart valve prosthesis. No cardiomegaly. MEDIASTINUM: Unremarkable. Normal mediastinal contour. BONES/JOINTS: Median sternotomy. Thoracic degenerative spondylosis. No acute fracture. TUBES, LINES AND DEVICES: Right IJ catheter tip overlies mid SVC, unchanged. IMPRESSION: Minimal left basilar atelectasis/infiltra te, unchanged. Report Dictated on Electronically Signed By: Chad Moore DO Electronically Signed Date/Time: 05/02/2025 5:49 AM EDT [facility] Radiology Study observation (narrative) [facility] jamila 30on 05-01-2025 30 Problem: Knowledge Deficit Goal: Patient/family/careg ivmonster demonstrates understanding of disease process, treatment plan, medications, and discharge instructions Outcome: Progressing Problem: Potential for Compromised Skin Integrity Goal: Skin Integrity is Maintained or Improved Outcome: Progressing Goal: Nutritional status is improving Outcome: Progressing Problem: Urinary Incontinence Goal: Perineal skin integrity is maintained or improved Outcome: Progressing Problem: Pain - Adult Goal: Verbalizes/displays adequate comfort level or baseline comfort level Outcome: Progressing Problem: Safety - Adult Goal: Free from fall injury Outcome: Progressing Problem: Discharge Planning Goal: Discharge to home or other facility with appropriate resources Outcome: Progressing Problem: Chronic Conditions and Co-morbidities Goal: Patient's chronic conditions and co-morbidity symptoms are monitored and maintained or improved Outcome: Progressing Problem: Problem Interventions Goal: Assess Nutritional Intake Outcome: Progressing Normal [facility] BASIC METABOLIC PANELon 05-3 Anion gap [Moles/Vol] 11 mmol/L Normal 3-13 [facility] Comment on above: Performed By: #### L AB15, [id number] ####Groover Operator: STEFANIE WARD ([phone])[facility] ([facility])[address] [place] [address] Calcium [Mass/Vol] 8.5 mg/dL Normal 8.4-10.2 [facility] Comment on above: Performed By: #### L AB15, [id number] ####Groover Operator: STEFANIE WARD ([phone])[facility] ([facility] [place] [address] [place] Chloride [Moles/Vol] 101 mmol/L Normal 98-107 [facility] Comment on above: Performed By: #### L AB15, [id number] ####Groover Operator: STEFANIE WARD ([phone])[facility] ([facility])[address] [place] [address] [place] CO2 [Moles/Vol] 21 mmol/L Low 22-29 [facility] Comment on above: Performed By: #### L AB15, [id number] ####Groover Operator: STEFANIE WARD ([phone])[facility] ([facility])[address] [place] [address] [place] Creatinine [Mass/Vol] 0.73 mg/dL Normal 0.72-1.25 [facility] Comment on above: Performed By: #### L AB15, [id number] ####Groover Operator: STEFANIE WARD ([phone])[facility] [place] [address] GLOMERULAR FILTRATION RATE ML/MIN/1.73 SQ M.PREDICTED >90.0 Normal >60.0 [facility] Comment on above: Result Comment: Calc ulation based on the Chronic Kidney Disease Epidemiology Collaboration (CKD-EPI) equation refit without adjustment for race Performed By: #### L AB15, [id number] ####Groover Operator: STEFANIE WARD ([phone])[facility])[address] [place] [address] Glucose [Mass/Vol] 138 mg/dL High 74-100 [facility] Comment on above: Performed By: #### L AB15, [id number] ####Groover Operator: STEFANIE WARD ([phone])[facility])[address] [place] [address] Potassium [Moles/Vol] 4.4 mmol/L Normal 3.5-5.1 [facility] Comment on above: Result Comment: [facility] potassium values may be up to 0.5 mmol/L lower than serum values. Performed By: #### L AB15, [id number] ####Groover Operator: STEFANIE WARD ([phone])[facility] ([facility])[address] [place] [address] Sodium [Moles/Vol] 133 mmol/L Low 136-145 [facility] Comment on above: Performed By: #### L AB15, [id number] ####Groover Operator: STEFANIE WARD ([phone])[facility])[address] [place] [address] Urea nitrogen [Mass/Vol] 17 mg/dL Normal 9-23 [facility] Comment on above: Performed By: #### L AB15, [id number] ####Groover Operator: STEFANIE WARD ([phone])[address] Basic metabolic 1998 panelon 05-01-2025 Anion gap [Moles/Vol] 11 mmol/L 3 - 13 mmol/L [facility] Calcium [Mass/Vol] 8.5 mg/dL 8.4 - 10. 2 mg/dL [facility] Chloride [Moles/Vol] 101 mmol/L 98 - 10 7 mmol/L [facility] CO2 [Moles/Vol] 21 mmol/L Low 22 - 29 mmol/L [facility] Creatinine [Mass/Vol] 0.73 mg/dL 0.72 - 1.25 mg/dL [facility] GFR/1.73 sq M.predicted (S/P/Bld) [Vol rate/Area] - PINF [facility] Comment on above: Calculation based on the Chronic Kidney Disease Epidemiology Collaboration (CKD-EPI) equation refit without adjustment for race Glucose [Mass/Vol] 138 mg/dL High 74 - 100 mg/dL [facility] Interpretation and review of laboratory results Abnormal [facility] Potassium [Moles/Vol] 4.4 mmol/L 3.5 - 5.1 mmol/L [facility] Comment on above: Plasma potassium rena ues may be up to 0.5 mmol/L lower than serum values. Sodium [Moles/Vol] 133 mmol/L Low 136 - 145 mmol/L [facility] Urea nitrogen [Mass/Vol] 17 mg/dL 9 - 23 mg/d L [facility] CBC (HEMOGRAM)on 05-01-2025 Erythrocyte distribution width (RBC) [Ratio] 13.4 % Normal 11.5-15.0 [facility] Comment on above: Performed By: #### L AB294 ####Groover Operator: STEFANIE WARD ([phone])[address] Hematocrit (Bld) [Volume fraction] 34.7 % Low 40.0-52.0 [facility] Comment on above: Performed By: #### L AB294 ####Groover Operator: STEFANIE WARD ([phone])[facility])[address] [place] [address] Hemoglobin (Bld) [Mass/Vol] 11.3 g/dL Low 13.0-18.0 [facility] Comment on above: Performed By: #### L AB294 ####Groover Operator: STEFANIE WARD ([phone])[facility])[address] [place] [address] MCH (RBC) [Entitic mass] 27.3 pg Normal 26.0-34.0 [facility] Comment on above: Performed By: #### L AB294 ####Groover Operator: STEFANIE WARD ([phone])[facility] ([facility])[address] [place] [address] MCHC 32.6 % Normal 30.5-36.0 [facility] Comment on above: Performed By: #### L AB294 ####Groover Operator: STEFANIE WARD ([phone])[facility] ([facility])[address] [place] [address] MCV (RBC) [Entitic vol] 83.8 fL Normal 77.0-99.0 [facility] Comment on above: Performed By: #### L AB294 ####Groover Operator: STEFANIE WARD ([phone])[facility] ([facility])[address] [place] [address] Platelet mean volume (Bld) [Entitic vol] 12.1 fL Normal 9.0-12.7 [facility] Comment on above: Performed By: #### L AB294 ####Groover Operator: STEFANIE WARD ([phone])[facility] [facility] ([facility])[address] [place] [address] Platelets (Bld) [#/Vol] 122 10*3/uL Low 140-440 [facility] Comment on above: Performed By: #### L [id number] ####Groover Operator: STEFANIE WARD ([phone])[facility] ([facility])[address] [place] [address] RBC (Bld) [#/Vol] 4.14 10*6/uL Low 4.40-5.90 [facility] Comment on above: Performed By: #### L [id number] ####Groover Operator: STEFANIE WARD ([phone])[facility] ([facility])[address] [place] [address] WBC (Bld) [#/Vol] 10.3 10*3/uL Normal 3.6-10.7 [facility] Comment on above: Performed By: #### L [id number] ####Groover Operator: STEFANIE WARD ([phone])[address] CBC panel Auto (Bld)on 05-01 Erythrocyte distribution width (RBC) [Ratio] 13.4 % 11.5 - 15.0 % [facility] Hematocrit (Bld) [Volume fraction] 34.7 % Low 40.0 - 52.0 % [facility] Hemoglobin (Bld) [Mass/Vol] 11.3 g/dL Low 13.0 - 18.0 g/dL [facility] Interpretation and review of laboratory results Abnormal [facility] MCH (RBC) [Entitic mass] 27.3 pg 26. 0 - 34.0 pg [facility] MCHC (RBC) [Mass/Vol] 32.6 % 30.5 - 36.0 % [facility] MCV (RBC) [Entitic vol] 83.8 fL 77.0 - 99.0 fL [facility] Platelet mean volume (Bld) [Entitic vol] 12.1 fL 9.0 - 12.7 fL [facility] Platelets (Bld) [#/Vol] 122 10*3/uL Low 140 - 440 10*3/uL [facility] RBC (Bld) [#/Vol] 4.14 10*6/uL Low 4.40 - 5.9 0 10*6/uL [facility] WBC (Bld) [#/Vol] 10.3 10*3/uL 3.6 - 10.7 10*3/uL [facility] - Chemistry and C hemistry - challengeon 05-01-2025 Magnesium [Mass/Vol] 1.9 mg/dL 1.6 - 2 .6 mg/dL [facility] - Coagulationon 0 05-01-2025 PT Coag (Bld) [Time] 11.1 s 9.0 - 12.0 s [facility] MAGNESIUMon 05-01-2025 Magnesium [Mass/Vol] 1.9 mg/dL Normal 1.6-2.6 [facility] Comment on above: Result Comment: KIKO Solorio COMMENTS: Higher values can be expected in females during menses. Performed By: #### L AB15, [id number] ####Groover Operator: STEFANIE WARD ([phone])[facility])[address] [place] [address] Magnesium [Mass/Vol]on 05-01 Interpretation and review of laboratory results Normal [facility] Higher values can be expected in females during menses. [facility] No Panel Informationon 05-01 [facility] PROTHROMBIN TIMEon INR Coag (PPP) [Relative time] 1.0 {INR} Normal 0.9-1.1 [facility] Comment on above: Result Comment: Nabeel mmended Anticoagulant Therapy: SEE BELOW ----- INR of 2.0 - 3.0 : - Prophylaxis of Venous Thrombosis (high-risk surgery) - Treatment of Venous Thrombosis - Treatment of Pulmonary Embolism (Includes tissue heart valves, Acute Myocardial Infarction to prevent systemic embolism, Valvular Heart Disease, and Atrial Fibrillation) ----- INR of 2.5 - 3.5 : - Mechanical Prosthetic Valves (high risk) - If oral anticoagulant therapy is used to prevent Myocardial Infarction Performed By: #### L [id number] ####Groover Operator: STEFANIE WARD ([phone])[facility])[address] [place] [address] PT Coag (PPP) [Time] 11.1 s Normal 9.0-12.0 [facility] Comment on above: Performed By: #### L [id number] ####Groover Operator: STEFANIE WARD ([phone])[address] PT Coag (Bld) [Time]on 05-01 INR Coag (PPP) [Relative time] 1 {INR} 0.9 - 1.1 [facility] Comment on above: Recommended Anticoag ulant Therapy: SEE BELOW ----- INR of 2.0 - 3.0 : - Prophylaxis of Venous Thrombosis (high-risk surgery) - Treatment of Venous Thrombosis - Treatment of Pulmonary Embolism (Includes tissue heart valves, Acute Myocardial Infarction to prevent systemic embolism, Valvular Heart Disease, and Atrial Fibrillation) ----- INR of 2.5 - 3.5 : - Mechanical Prosthetic Valves (high risk) - If oral anticoagulant therapy is used to prevent Myocardial Infarction Interpretation and review of laboratory results Normal [facility] Progress Noteon 05-01-2025 Progress Note [facility] Anticoagulation Management Service (NADIR) Inpatient Warfarin Consult HPI: Bright Keen is a 55 y.o. male admitted on 04/28/2025 for Aortic stenosis, severe. Medical History[1] Patient is newly referred to the [facility] clinic for warfarin management. Pt was referred by IKSHA Pitt CNP. Pt is on warfarin for mechanical AVR and has a goal INR 2.0 - 3.0. Duration of therapy= lifelong. Reason for warfarin instead of DOAC: mechanical valve PCP: Asher Jesus PA-C S/sx of bleeding= None beyond surgical bruising and ecchymosis Interacting medications= ASA, amiodarone, Lovenox 40mg Labs: Recent Labs 04/29/25 0224 04/30/25 0313 05/01/25 0320 HGB 12.4* 11.6* 11.3* HCT 38.6* 35.7* 34.7* PLT 145 110* 122* Recent Labs 05/01/25 0320 INR 1.0 Date INR Dose 05/01 1.0 5mg 04/30 1.0 3mg 04/29 1.1 3mg Assessment/Plan: 1. INR is subtherapeutic due to new start warfarin- on day 3. Will give 5 mg today 2. Will monitor for s/s of bleeding and drug interactions and adjust dose accordingly. 3. Will facilitate [facility] follow-up upon discharge. 4. [facility] clinic provided preop education last week. Will follow up prior to discharge to see if he has any questions. Mihaela Unger PharmD NADIR Consult Service is available daily [phone] via [employer] Secure Chat. If no response, please page [phone]. [1] Past Medical History: Diagnosis Date Heart valve disorder Hyperlipidemia Hypertension Stroke (HCC) no residual Normal [facility] XR CHEST 1 VIEWon 05-01-2025 XR CHEST 1 VIEW Patient Name: BRIGHT KEEN : 1970 Exam Date/Time: 05/01/2025 05:22 Procedure: XR CHEST 1 VIEW Ordering Provider: ALVARADO ANDREW Reason For Exam: Shortness of breath EXAM: XR Chest, 1 View CLINICAL INDICATION: Shortness of breath TECHNIQUE: Frontal view of the chest. COMPARISON: 04/30/2025. FINDINGS: LUNGS AND PLEURAL SPACES: Minimal left basilar atelectasis, unchanged. No pneumothorax. HEART: Heart valve prosthesis. No cardiomegaly. MEDIASTINUM: Unremarkable. Normal mediastinal contour. BONES/JOINTS: Median sternotomy. Thoracic degenerative spondylosis. No acute fracture. TUBES, LINES AND DEVICES: Right IJ catheter tip overlies mid SVC, unchanged. IMPRESSION: Minimal left basilar atelectasis, unchanged. Report Dictated on Electronically Signed By: Chad Moore DO Electronically Signed Date/Time: 05/01/2025 7:06 AM EDT [facility] XR Chest Single viewon 05-01 Minimal left basilar atelectasis, unchanged. Report Dictated on Electronically Signed By: Chad Moore DO Electronically Signed Date/Time: 05/01/2025 7:06 AM EDT [facility] Patient Name: BRIGHT KEEN : 1970 Exam Date/Time: 05/01/2025 05:22 Procedure: XR CHEST 1 VIEW Ordering Provider: ALVARADO ANDREW Reason For Exam: Shortness of breath EXAM: XR Chest, 1 View CLINICAL INDICATION: Shortness of breath TECHNIQUE: Frontal view of the chest. COMPARISON: 04/30/2025. FINDINGS: LUNGS AND PLEURAL SPACES: Minimal left basilar atelectasis, unchanged. No pneumothorax. HEART: Heart valve prosthesis. No cardiomegaly. MEDIASTINUM: Unremarkable. Normal mediastinal contour. BONES/JOINTS: Median sternotomy. Thoracic degenerative spondylosis. No acute fracture. TUBES, LINES AND DEVICES: Right IJ catheter tip overlies mid SVC, unchanged. [facility] Chad Moore DO - 05/01/2025 Patient Name: BRIGHT KEEN : 1970 Exam Date/Time: 05/01/2025 05:22 Procedure: XR CHEST 1 VIEW Ordering Provider: ALVARADO ANDREW Reason For Exam: Shortness of breath EXAM: XR Chest, 1 View CLINICAL INDICATION: Shortness of breath TECHNIQUE: Frontal view of the chest. COMPARISON: 04/30/2025. FINDINGS: LUNGS AND PLEURAL SPACES: Minimal left basilar atelectasis, unchanged. No pneumothorax. HEART: Heart valve prosthesis. No cardiomegaly. MEDIASTINUM: Unremarkable. Normal mediastinal contour. BONES/JOINTS: Median sternotomy. Thoracic degenerative spondylosis. No acute fracture. TUBES, LINES AND DEVICES: Right IJ catheter tip overlies mid SVC, unchanged. IMPRESSION: Minimal left basilar atelectasis, unchanged. Report Dictated on Electronically Signed By: Chad Moore DO Electronically Signed Date/Time: 05/01/2025 7:06 AM EDT [facility] Radiology Study observation (narrative) [facility] BASIC METABOLIC PANELon 05-3 Anion gap [Moles/Vol] 3 mmol/L Normal 3-13 [facility] Comment on above: Performed By: #### L AB15, [id number] ####Groover Operator: STEFANIE WARD ([phone])[address] Calcium [Mass/Vol] 8.6 mg/dL Normal 8.4-10.2 [facility] Comment on above: Performed By: #### L AB15, [id number] ####Groover Operator: STEFANIE WARD ([phone])[facility])[address] [place] [address] Chloride [Moles/Vol] 101 mmol/L Normal 98-107 [facility] Comment on above: Performed By: #### L AB15, [id number] ####Groover Operator: STEFANIE WARD ([phone])[facility])[address] [place] [address] CO2 [Moles/Vol] 24 mmol/L Normal 22-29 [facility] Comment on above: Performed By: #### L AB15, [id number] ####Groover Operator: STEFANIE [id number])[facility] [place] [address] [place] Creatinine [Mass/Vol] 0.76 mg/dL Normal 0.72-1.25 [facility] Comment on above: Performed By: #### L AB15, [id number] ####Groover Operator: STEFANIE WARD ([phone])[facility] ([facility])[address] [place] [address] [place] GLOMERULAR FILTRATION RATE ML/MIN/1.73 SQ M.PREDICTED >90.0 Normal >60.0 [facility] Comment on above: Result Comment: Calc ulation based on the Chronic Kidney Disease Epidemiology Collaboration (CKD-EPI) equation refit without adjustment for race Performed By: #### L AB15, [id number] ####Groover Operator: STEFANIE WARD ([phone])[facility] ([facility])[address] [place] [address] [place] Glucose [Mass/Vol] 115 mg/dL High 74-100 [facility] Comment on above: Performed By: #### L AB15, [id number] ####Groover Operator: STEFANIE WARD ([phone])[facility] ([facility])[address] [place] [address] [place] Potassium [Moles/Vol] 4.6 mmol/L Normal 3.5-5.1 [facility] Comment on above: Result Comment: [facility] potassium values may be up to 0.5 mmol/L lower than serum values. Performed By: #### L AB15, [id number] ####Groover Operator: STEFANIE WARD ([phone])[facility] ([facility])[address] [place] [address] [place] Sodium [Moles/Vol] 128 mmol/L Low 136-145 [facility] Comment on above: Performed By: #### L AB15, [id number] ####Groover Operator: STEFANIE WARD ([phone])[facility] [place] [address] [place] Urea nitrogen [Mass/Vol] 16 mg/dL Normal 9-23 [facility] Comment on above: Performed By: #### L AB15, [id number] ####Groover Operator: STEFANIE WARD ([phone])[facility] ([facility])[address] [place] [address] Basic metabolic 1998 panelOr dered By: Louis Light on 04-30-2025 Anion gap [Moles/Vol] 3 mmol/L 3 - 13 mmol/L [facility] Calcium [Mass/Vol] 8.6 mg/dL 8.4 - 10. 2 mg/dL [facility] Chloride [Moles/Vol] 101 mmol/L 98 - 10 7 mmol/L [facility] CO2 [Moles/Vol] 24 mmol/L 22 - 29 mmol/L [facility] Creatinine [Mass/Vol] 0.76 mg/dL 0.72 - 1.25 mg/dL [facility] GFR/1.73 sq M.predicted (S/P/Bld) [Vol rate/Area] - PINF [facility] Comment on above: Calculation based on the Chronic Kidney Disease Epidemiology Collaboration (CKD-EPI) equation refit without adjustment for race Glucose [Mass/Vol] 115 mg/dL High 74 - 100 mg/dL [facility] Interpretation and review of laboratory results Abnormal [facility] Potassium [Moles/Vol] 4.6 mmol/L 3.5 - 5.1 mmol/L [facility] Comment on above: Plasma potassium rena ues may be up to 0.5 mmol/L lower than serum values. Sodium [Moles/Vol] 128 mmol/L Low 136 - 145 mmol/L [facility] Urea nitrogen [Mass/Vol] 16 mg/dL 9 - 23 mg/d L [facility] CBC (HEMOGRAM)on 04-30-2025 Erythrocyte distribution width (RBC) [Ratio] 13.5 % Normal 11.5-15.0 [facility] Comment on above: Performed By: #### L [id number] ####Groover Operator: STEFANIE WARD ([phone])[facility] ([facility])[address] [place] [address] Hematocrit (Bld) [Volume fraction] 35.7 % Low 40.0-52.0 [facility] Comment on above: Performed By: #### L [id number] ####Groover Operator: STEFANIE WARD ([phone])[facility] ([facility])[address] [place] [address] Hemoglobin (Bld) [Mass/Vol] 11.6 g/dL Low 13.0-18.0 [facility] Comment on above: Performed By: #### L [id number] ####Groover Operator: STEFANIE WARD ([phone])[facility] ([facility])[address] [place] [address] [place] IPF 7 Normal [facility] Comment on above: Performed By: #### L [id number] ####Groover Operator: STEFANIE WARD ([phone])[facility] ([facility])[address] [place] [address] MCH (RBC) [Entitic mass] 27.8 pg Normal 26.0-34.0 [facility] Comment on above: Performed By: #### L [id number] ####Groover Operator: STEFANIE WARD ([phone])[facility] ([facility])[address] [place] [address] MCHC 32.5 % Normal 30.5-36.0 [facility] Comment on above: Performed By: #### L [id number] ####Groover Operator: STEFANIE WARD ([phone])[facility] ([facility])[address] [place] [address] MCV (RBC) [Entitic vol] 85.4 fL Normal 77.0-99.0 [facility] Comment on above: Performed By: #### L [id number] ####Groover Operator: STEFANIE WARD ([phone])[facility] ([facility])[address] [place] [address] Platelet mean volume (Bld) [Entitic vol] 11.7 fL Normal 9.0-12.7 [facility] Comment on above: Performed By: #### L [id number] ####Groover Operator: STEFANIE WARD ([phone])[facility] ([facility])[address] [place] [address] Platelets (Bld) [#/Vol] 110 10*3/uL Low 140-440 [facility] Comment on above: Performed By: #### L [id number] ####Groover Operator: STEFANIE WARD ([phone])[address] RBC (Bld) [#/Vol] 4.18 10*6/uL Low 4.40-5.90 [facility] Comment on above: Performed By: #### L [id number] ####Groover Operator: STEFANIE WARD ([phone])[facility])[address] [place] [address] WBC (Bld) [#/Vol] 11.4 10*3/uL High 3.6-10.7 [facility] Comment on above: Performed By: #### L [id number] ####Groover Operator: STEFANIE WARD ([phone])[address] CBC panel Auto (Bld)on 04-30 Erythrocyte distribution width (RBC) [Ratio] 13.5 % 11.5 - 15.0 % [facility] Hematocrit (Bld) [Volume fraction] 35.7 % Low 40.0 - 52.0 % [facility] Hemoglobin (Bld) [Mass/Vol] 11.6 g/dL Low 13.0 - 18.0 g/dL [facility] Interpretation and review of laboratory results Abnormal [facility] IPF 7 [facility] MCH (RBC) [Entitic mass] 27.8 pg 26. 0 - 34.0 pg [facility] MCHC (RBC) [Mass/Vol] 32.5 % 30.5 - 36.0 % [facility] MCV (RBC) [Entitic vol] 85.4 fL 77.0 - 99.0 fL [facility] Platelet mean volume (Bld) [Entitic vol] 11.7 fL 9.0 - 12.7 fL [facility] Platelets (Bld) [#/Vol] 110 10*3/uL Low 140 - 440 10*3/uL [facility] RBC (Bld) [#/Vol] 4.18 10*6/uL Low 4.40 - 5.9 0 10*6/uL [facility] WBC (Bld) [#/Vol] 11.4 10*3/uL High 3.6 - 10.7 10*3/uL [facility] [employer] ECG 12-LEADon 04-30-2025 ECG 12-LEAD IMPRESSION: Atrial fibrillation Ventricular premature complex ST ELEVATION, DIFFUSE LEADS Electronically Signed On 04-30-2025 16:20:08 EDT by Patricio Petersen Normal [facility] - Chemistry and C hemistry - challengeon 04-30-2025 Magnesium [Mass/Vol] 2 mg/dL 1.6 - 2 .6 mg/dL [facility] - Coagulationon 0 04-30-2025 PT Coag (Bld) [Time] 11.1 s 9.0 - 12.0 s [facility] MAGNESIUMon 04-30-2025 Magnesium [Mass/Vol] 2.0 mg/dL Normal 1.6-2.6 [facility] Comment on above: Result Comment: KIKO Solorio COMMENTS: Higher values can be expected in females during menses. Performed By: #### L AB15, [id number] ####Groover Operator: STEFANIE WARD ([phone])[facility] ([facility] Magnesium [Mass/Vol]on 04-30 Interpretation and review of laboratory results Normal [facility] Higher values can be expected in females during menses. [facility] [employer] [facility] [employer] No Panel InformationOrdered By: Patricio Petersen on 04-30-2025 P [place] 9 degrees [employer] Work Phone: SC Interval 180 ms [employer] Work Phone: QRS [place] -14 degrees [employer] Work Phone: QRSD Interval 86 ms [facility] Hospital[facility] Data Softwaret [employer] Work Phone: QT Interval 372 ms [employer] Work Phone: QTC Interval 426 ms [employer] Work Phone: T Wave [place] 114 degrees [employer] Work Phone: [employer] Work Phone: No Panel Informationon 04-30 Patricio Petersen MD - 04/30/2025 IMPRESSION: Sinus rhythm PVC Poor R wave progression Abnormal T, consider ischemia, lateral leads Minimal ST elevation, inferior leads Electronically Signed On 04-30-2025 16:39:55 EDT by Patricio Petersen [facility] P [place] 0 degrees [facility] SC Interval 0 ms [facility] QRS [place] 1 degrees [facility] QRSD Interval 103 ms [facility] QT Interval 385 ms [facility] QTC Interval 449 ms [facility] T Wave [place] 92 degrees [facility] Atrial fibrillation Ventricular premature complex ST ELEVATION, DIFFUSE LEADS Electronically Signed On 04-30-2025 16:20:08 EDT by Patricio Madison MD - 04/30/2025 IMPRESSION: Atrial fibrillation Ventricular premature complex ST ELEVATION, DIFFUSE LEADS Electronically Signed On 04-30-2025 16:20:08 EDT by Patricio Nicola [facility] Nursing Noteon 04-30-2025 Nursing Note Wound Care consulted for Pressure Injury Prevention. Pt's Archie= 20 on 04/30/2025, at this time the pt is no longer at risk per Archie Scale. Skin Care Precaution order set in place. Will continue to follow peripherally. Please voicera or secure chat message with any questions. Tonie Proctor RN, BSN Normal [facility] PROTHROMBIN TIMEon INR Coag (PPP) [Relative time] 1.0 {INR} Normal 0.9-1.1 [facility] Comment on above: Result Comment: Nabeel mmended Anticoagulant Therapy: SEE BELOW ----- INR of 2.0 - 3.0 : - Prophylaxis of Venous Thrombosis (high-risk surgery) - Treatment of Venous Thrombosis - Treatment of Pulmonary Embolism (Includes tissue heart valves, Acute Myocardial Infarction to prevent systemic embolism, Valvular Heart Disease, and Atrial Fibrillation) ----- INR of 2.5 - 3.5 : - Mechanical Prosthetic Valves (high risk) - If oral anticoagulant therapy is used to prevent Myocardial Infarction Performed By: #### L [id number] ####Groover Operator: STEFANIE WARD ([phone])[facility] ([address] PT Coag (PPP) [Time] 11.1 s Normal 9.0-12.0 [facility] Comment on above: Performed By: #### L [id number] ####Groover Operator: STEFANIE WARD ([phone])[facility] ([facility])[address] [place] [address] PT Coag (Bld) [Time]on 04-30 INR Coag (PPP) [Relative time] 1 {INR} 0.9 - 1.1 [facility] Comment on above: Recommended Anticoag ulant Therapy: SEE BELOW ----- INR of 2.0 - 3.0 : - Prophylaxis of Venous Thrombosis (high-risk surgery) - Treatment of Venous Thrombosis - Treatment of Pulmonary Embolism (Includes tissue heart valves, Acute Myocardial Infarction to prevent systemic embolism, Valvular Heart Disease, and Atrial Fibrillation) ----- INR of 2.5 - 3.5 : - Mechanical Prosthetic Valves (high risk) - If oral anticoagulant therapy is used to prevent Myocardial Infarction Interpretation and review of laboratory results Normal [facility] Progress Noteon 04-30-2025 Progress Note PHYSICAL THERAPY [facility] Treatment Note Name/MRN: Bright Keen ([id number]) Date of : 1970 Age: 55 y.o. Room/Bed: T1-111/T1-111 A Discharge Recommendation: Home with assist PRN, Outpatient PT (outpatient cardiac rehab) Other: TBD Assessment Patient remains limited by sternal pain and generalized weakness. Patient required min A for supine <> sit and CGA for sit <> stand transfers. Patient ambulated 100 feet using Nezzie with CGA, required multiple short standing rest breaks. Recommend home with assist PRN and outpatient cardiac rehab. Subjective RN cleared patient for PT eval. Patient awake in bed, pleasant and agreeable to therapy. States he had some heart rhythm problems today and is sweating a lot. Pain: sternum Medical Precautions: No active isolations Proper PPE donned/doffed in accordance with facility standards. Fall Risk: De [place] Torre Fall Risk Score: 45 (High Risk) Precautions/Restrict ions: Sternal Precautions: No lifting greater than 10 lbs. Ok for modified UE precautions using Keep Your Move in the Tube technique Lines/Drains/Airways : tele, continuous pulse ox, PIV Skin care precautions Overall Cognitive Status: WNL Overall Orientation Status: Oriented x4 Family/Caregiver Present: spouse Objective Bed Mobility Supine to sit: Min Assist Scooting: Contact Guard (seated) HOB elevated, required increased time to perform.. Reported dizziness which resolved with static sitting. Transfers/Mobility Sit to stand: Contact Guard Stand to sit: Contact Guard From EOB, cues for sternal precautions Device(s) used: Nezzie Ambulation Ambulation 1 Assistive device(s) used: Nezzie Assist level: Contact Guard Distance (ft): 100 (multiple short standing rest breaks) Quality of gait: No LOB, slow scotty, postural sway, cues for upright posture Exercises Plan Continue acute PT per plan of care. Safety/Education Safety Safety Devices in place: call light within reach, left in chair, nurse notified, and no alarms engaged upon entry Restraints: No Education Education Given To: patient Education Provided: PT Goals, Plan of Care, and Precautions Education Method: Verbal Barriers to Learning: None Education Outcome: Verbalized Understanding Outcome Measures AM-PAC AM-PAC Inpatient Mobility Raw Score (No Stairs) : 15 JH-HLM JH-HLM Score: Walked 25 ft or more (i.e. walked outside of room) Goals Patient Stated Goal: to get better Encounter Problems Encounter Problems (Active) Cardiac Patient will perform bed mobility with modified independence in order to improve independence and prepare for out of bed mobility. (Progressing) Start: 04/29/25 Expected End: 05/27/25 Patient will complete sit to stand transfer with modified independence in order to improve safety and prepare for out of bed mobility. (Not Progressing) Start: 04/29/25 Expected End: 05/27/25 Patient will ambulate 350 feet or ambulate 5 minutes with modified independence with RPE of 14 or lower. (Progressing) Start: 04/29/25 Expected End: 05/27/25 Patient will ascend and descend 4 # stairs with supervision rail for balance only. (Not Addressed) Start: 04/29/25 Expected End: 05/27/25 Patient will be independent with P&C exercises. (Not Addressed) Start: 04/29/25 Expected End: 05/27/25 Patient will be independent with managing secretions and home walking program. (Progressing) Start: 04/29/25 Expected End: 05/27/25 Pain - Adult Therapy Time Individual Co-treatment Time In 1158 Time Out 1218 Minutes 20 Timed Code Treatment Minutes: 20 Minutes (gait) Mariam Jacobs, PT [facility] Progress Note Chest tubes assessed: no air leak, subcutaneous air noted. Chest tubes removed without difficulty and dressing applied. Patient tolerated well. Patient and nurse educated on possible complications to observe for. Will continue to monitor. [facility] Progress Note Department of Internal Medicine Division of Endocrinology, Diabetes, & Metabolism Endocrinology Note Patient Name: Bright Keen : 1970 AGE: 55 y.o. [facility]: [facility] Admission Date: 04/28/2025 Visit Date: 04/30/2025 Reason for Endocrine Consult: post heart Provider/Team Requesting Consult: CTS PCP: Asher Jesus PA-C Outpt Geodetic Surveyor: No ASSESSMENT: Stress hyperglycemia AVR HLD/HTN Obesity Body mass index is 39.16 kg/m?. PLAN: Blood sugar has been stable without the need for insulin administration Stop Humalog sliding scale and POCT checks Endocrine will sign off at this time please reach out to us with any further questions or concerns ICU goal <180 GMF goal <150 POCT BG ACHS Hypoglycemia management per protocol Carb controlled diet ANTICIPATED ENDOCRINE HOME GOING RECOMMENDATIONS: Optimized for Discharge from Endocrine standpoint: yes Home Going Endocrine Rx Recommendations-- NONE Outpt Follow Up-- PCP SUBJECTIVE/HPI: CHIEF COMPLAINT: No chief complaint on file. S/p AVR BGL below- stable Awake alert up in chair Is on amiodarone drip for irregular heart rhythm Did not eat much breakfast but states he ordered soup for lunch Does have some nausea and not hungry Denies vomiting Family in room questions addressed Blood sugars have been stable we will sign off at this time Spoke with team Type of DM: NA Onset of DM: NA Home DM Medication Regimen: NA DM control (last A1c/glucose data): Lab Results Component Value Date HGBA1C 5.4 04/21/2025 Glucose Date/Time Value Ref Range Status 04/29/2025 05:02 PM 116 (H) 70 - 100 mg/dL Final 04/29/2025 10:59 AM 131 (H) 70 - 100 mg/dL Final 04/29/2025 10:15 AM 126 (H) 70 - 100 mg/dL Final 04/29/2025 09:21 AM 119 (H) 70 - 100 mg/dL Final 04/29/2025 08:42 AM 136 (H) 70 - 100 mg/dL Final 04/29/2025 07:11 AM 127 (H) 70 - 100 mg/dL Final Review of Systems ROS negative except for those mentioned in HPI. OBJECTIVE: Vitals: 04/30/25 0800 04/30/25 0809 04/30/25 0900 04/30/25 1000 BP: 115/70 124/73 127/74 Pulse: 73 78 67 65 Resp: (!) 26 19 13 15 Temp: 36.3 ?C (97.4 ?F) TempSrc: Temporal SpO2: 96% 97% 96% 96% Weight: Height: Physical Exam Vitals and nursing note reviewed. Constitutional: General: He is awake. He is not in acute distress. Appearance: He is ill-appearing. He is not toxic-appearing. Interventions: Nasal cannula in place. HENT: Head: Normocephalic. Mouth/Throat: Mouth: Mucous membranes are moist. Cardiovascular: Rate and Rhythm: Rhythm irregular. Pulmonary: Effort: Pulmonary effort is normal. No respiratory distress. Abdominal: Tenderness: There is no guarding. Skin: General: Skin is warm and dry. Coloration: Skin is pale. Comments: Intact incision Neurological: Mental Status: He is alert and oriented to person, place, and time. Mental status is at baseline. Psychiatric: Mood and Affect: Mood normal. 24 hour intake/output: Intake/Output Summary (Last 24 hours) at 04/30/2025 1027 Last data filed at 04/30/2025 0800 Gross per 24 hour Intake 850 ml Output 920 ml Net -70 ml Diet: Adult diet Regular; Low Sodium (2 gm) Medications (as per EMR): HomeMeds: Current Outpatient Medications Medication Instructions aspirin 81 mg, Oral, Daily atorvastatin (LIPITOR) 40 mg, Oral, Daily chlorhexidine (Peridex) 0.12 % solution 15 mL, Once mupirocin (Bactroban) 2 % ointment Apply liberal amount per nostril the night before surgery and then again the morning of surgery Scheduled Meds:Scheduled Meds[1] Continuous Infusions:Continuous Meds[2] PRN Meds:PRN Meds[3] Diagnostic Workup: I reviewed pertinent Laboratory results, Radiographic results, and Other Clinical Notes at the time of today's encounter. Labs: No components found for: LABA1C No components found for: EAG Lab Results Component Value Date NA 128 (L) 04/30/2025 K 4.6 04/30/2025 CL 101 04/30/2025 CO2 24 04/30/2025 BUN 16 04/30/2025 CREATININE 0.76 04/30/2025 GLUCOSE 115 (H) 04/30/2025 CALCIUM 8.6 04/30/2025 Lab Results Component Value Date CHOL 177 03/05/2025 Lab Results Component Value Date TRIG 44 03/05/2025 Lab Results Component Value Date HDL 35 (L) 03/05/2025 Lab Results Component Value Date LDLCALC 133 (H) 03/05/2025 No results found for: VLDL Lab Results Component Value Date CHOLHDLRATIO 5 03/05/2025 No results found for: SRBC02XTT No results found for: TSH, K4CKRQJ, W6DLNLK, THYROIDAB Radiology reportsas per the Radiologist Radiology: ECG 12 lead Result Date: 04/28/2025 Sinus rhythm Anterior infarct, old Prolonged QT interval POCT glucose meter Result Date: 04/28/2025 Performed by: [facility], [address] [place] [address] CLIA ID: [id number] History/Other: Past Medical History: Medical History[4] Past Surgical History: Surgical History[5] Robin (more content not included)... Normal [facility] Progress Note [facility] [place] [facility] Anticoagulation Management Service ([facility]) Inpatient Warfarin Consult HPI: Bright Keen is a 55 y.o. male admitted on 04/28/2025 for Aortic stenosis, severe. Medical History[1] Patient is newly referred to the [facility] clinic for warfarin management. Pt was referred by KISHA Pitt CNP. Pt is on warfarin for mechanical AVR and has a goal INR 2.0 - 3.0. Duration of therapy= lifelong. Reason for warfarin instead of DOAC: mechanical valve PCP: Asher Jesus PA-C S/sx of bleeding= none currently Interacting medications= ASA, amiodarone, Lovenox 40mg Labs: Recent Labs 04/28/25 1322 04/29/25 0224 04/30/25 0313 HGB 13.0 13.1 12.4* 11.6* HCT 39.5* 38.6* 35.7* PLT 146 145 110* Recent Labs 04/30/25312 INR 1.0 Date INR Dose 04/30 1.0 3mg 04/29 1.1 3mg Assessment/Plan: 1. INR is subtherapeutic due to new start warfarin. Warfarin 3mg started yesterday, wouldn't anticipate increase in INR yet so will continue 3mg today. 2. Will monitor for s/s of bleeding and drug interactions and adjust dose accordingly. 3. Will facilitate NADIR follow-up upon discharge. 4. Provided warfarin education. Completed preop education with patient last week. Will review carlos points with patient at time of discharge. Jenae Delcid RP, PharmD NADIR Consult Service is available daily [phone] via [employer] Secure Chat. If no response, please page [phone]. [1] Past Medical History: Diagnosis Date Heart valve disorder Hyperlipidemia Hypertension Stroke (HCC) no residual Normal [facility] Vital signsOrdered By: Patricio Petersen on 04-30-2025 Heart rate 78 /min bpm [facility] Work Phone: Vital signson 04-30-2025 Heart rate 82 /min bpm [facility] XR CHEST 1 VIEWon 04-30-2025 XR CHEST 1 VIEW [facility] 1970 [id number] Exam Date/Time: 04/30/2025 05:26 Procedure: XR CHEST 1 VIEW Ordering Provider: ALVARADO ANDREW Reason For Exam: Shortness of breath EXAM: XR Chest, 1 View CLINICAL INDICATION: Shortness of breath right IJ TECHNIQUE: Frontal view of the chest. COMPARISON: 04/29/2025. FINDINGS: LUNGS AND PLEURAL SPACES: Minimal left basilar atelectasis, unchanged. No pneumothorax. HEART: Mild cardiomegaly is redemonstrated. Prosthetic heart valve. MEDIASTINUM: See below. BONES/JOINTS: Median sternotomy. No acute fracture. TUBES, LINES AND DEVICES: ET and NG tubes, and mediastinal drain were removed. Right IJ catheter tip at mid SVC, unchanged. IMPRESSION: 1. Stable right IJ catheter. 2. Minimal left basilar atelectasis, unchanged. 3. Mild cardiomegaly. Prosthetic heart valve. Report Dictated on Electronically Signed By: Chad Moore DO Electronically Signed Date/Time: 04/30/2025 6:58 AM EDT [facility] XR Chest Single viewon 04-30 1. Stable right IJ catheter. 2. Minimal left basilar atelectasis, unchanged. 3. Mild cardiomegaly. Prosthetic heart valve. Report Dictated on Electronically Signed By: Chad Moore DO Electronically Signed Date/Time: 04/30/2025 6:58 AM EDT [facility] Patient Name: BRIGHT KEEN : 1970 Exam Date/Time: 04/30/2025 05:26 Procedure: XR CHEST 1 VIEW Ordering Provider: ALVARADO ANDREW Reason For Exam: Shortness of breath EXAM: XR Chest, 1 View CLINICAL INDICATION: Shortness of breath right IJ TECHNIQUE: Frontal view of the chest. COMPARISON: 04/29/2025. FINDINGS: LUNGS AND PLEURAL SPACES: Minimal left basilar atelectasis, unchanged. No pneumothorax. HEART: Mild cardiomegaly is redemonstrated. Prosthetic heart valve. MEDIASTINUM: See below. BONES/JOINTS: Median sternotomy. No acute fracture. TUBES, LINES AND DEVICES: ET and NG tubes, and mediastinal drain were removed. Right IJ catheter tip at mid SVC, unchanged. [facility] Chad Moore DO - 04/30/2025 Patient Name: BRIGHT KEEN : 1970 Exam Date/Time: 04/30/2025 05:26 Procedure: XR CHEST 1 VIEW Ordering Provider: ALVARADO ANDREW Reason For Exam: Shortness of breath EXAM: XR Chest, 1 View CLINICAL INDICATION: Shortness of breath right IJ TECHNIQUE: Frontal view of the chest. COMPARISON: 04/29/2025. FINDINGS: LUNGS AND PLEURAL SPACES: Minimal left basilar atelectasis, unchanged. No pneumothorax. HEART: Mild cardiomegaly is redemonstrated. Prosthetic heart valve. MEDIASTINUM: See below. BONES/JOINTS: Median sternotomy. No acute fracture. TUBES, LINES AND DEVICES: ET and NG tubes, and mediastinal drain were removed. Right IJ catheter tip at mid SVC, unchanged. IMPRESSION: 1. Stable right IJ catheter. 2. Minimal left basilar atelectasis, unchanged. 3. Mild cardiomegaly. Prosthetic heart valve. Report Dictated on Electronically Signed By: Chad Moore DO Electronically Signed Date/Time: 04/30/2025 6:58 AM EDT [facility] Radiology Study observation (narrative) [facility] BASIC METABOLIC PANELon 05-2 Anion gap [Moles/Vol] 7 mmol/L Normal 3-13 [facility] Comment on above: Performed By: #### L AB103, LAB15 ####Groover Operator: STEFANIE WARD ([phone])[facility] ([facility])[address] [place] [address] Calcium [Mass/Vol] 8.0 mg/dL Low 8.4-10.2 [facility] Comment on above: Performed By: #### L AB103, LAB15 ####Groover Operator: STEFANIE WARD ([phone])[facility] ([facility])[address] [place] [address] Chloride [Moles/Vol] 110 mmol/L High 98-107 [facility] Comment on above: Performed By: #### L AB103, LAB15 ####Groover Operator: STEFANIE WARD ([phone])[facility] ([facility])[address] [place] [address] [place] CO2 [Moles/Vol] 20 mmol/L Low 22-29 [facility] Comment on above: Performed By: #### L AB103, LAB15 ####Groover Operator: STEFANIE WARD ([phone])[facility] ([facility])[address] [place] [address] Creatinine [Mass/Vol] 0.89 mg/dL Normal 0.72-1.25 [facility] Comment on above: Performed By: #### L AB103, LAB15 ####Groover Operator: STEFANIE WARD ([phone])[facility])[address] [place] [address] GLOMERULAR FILTRATION RATE ML/MIN/1.73 SQ M.PREDICTED >90.0 Normal >60.0 [facility] Comment on above: Result Comment: Calc ulation based on the Chronic Kidney Disease Epidemiology Collaboration (CKD-EPI) equation refit without adjustment for race Performed By: #### L AB103, LAB15 ####Groover Operator: STEFANIE WARD ([phone])[facility])[address] [place] [address] Glucose [Mass/Vol] 131 mg/dL High 74-100 [facility] Comment on above: Performed By: #### L AB103, LAB15 ####Groover Operator: STEFANIE WARD ([phone])[address] Potassium [Moles/Vol] 5.0 mmol/L Normal 3.5-5.1 [facility] Comment on above: Result Comment: [facility] potassium values may be up to 0.5 mmol/L lower than serum values. Performed By: #### L AB103, LAB15 ####Groover Operator: STEFANIE WARD ([phone])[facility])[address] [place] [address] Sodium [Moles/Vol] 137 mmol/L Normal 136-145 [facility] Comment on above: Performed By: #### L AB103, LAB15 ####Groover Operator: STEFANIE WARD ([phone])[facility])[address] [place] [address] Urea nitrogen [Mass/Vol] 17 mg/dL Normal 9-23 [facility] Comment on above: Performed By: #### L AB103, LAB15 ####Groover Operator: STEFANIE WARD ([phone])[facility])[address] [place] [address] Basic metabolic 1998 panelOr dered By: Mariola Wright on 04-29-2025 Anion gap [Moles/Vol] 7 mmol/L 3 - 13 mmol/L [facility] Calcium [Mass/Vol] 8 mg/dL Low 8.4 - 10. 2 mg/dL [facility] Chloride [Moles/Vol] 110 mmol/L High 98 - 10 7 mmol/L [facility] CO2 [Moles/Vol] 20 mmol/L Low 22 - 29 mmol/L [facility] Creatinine [Mass/Vol] 0.89 mg/dL 0.72 - 1.25 mg/dL [facility] GFR/1.73 sq M.predicted (S/P/Bld) [Vol rate/Area] - PINF [facility] Comment on above: Calculation based on the Chronic Kidney Disease Epidemiology Collaboration (CKD-EPI) equation refit without adjustment for race Glucose [Mass/Vol] 131 mg/dL High 74 - 100 mg/dL [facility] Interpretation and review of laboratory results Abnormal [facility] Potassium [Moles/Vol] 5 mmol/L 3.5 - 5.1 mmol/L [facility] Comment on above: Plasma potassium rena ues may be up to 0.5 mmol/L lower than serum values. Sodium [Moles/Vol] 137 mmol/L 136 - 145 mmol/L [facility] Urea nitrogen [Mass/Vol] 17 mg/dL 9 - 23 mg/d L [facility] CALCIUM, IONIZEDon CALCIUM IONIZED 4.40 mg/dL Normal 4.30-5.20 [facility] Comment on above: Order Comment: Obtai n PRN and check ionized Ca level if serum Ca level less than 8.0 Performed By: #### L AB54 ####Groover Operator: STEFANIE WARD ([phone])[facility] ([address] PH, IONIZED CALCIUM 7.38 Normal 7.31-7.46 [facility] Comment on above: Order Comment: Obtai n PRN and check ionized Ca level if serum Ca level less than 8.0 Performed By: #### L AB54 ####Groover Operator: STEFANIE WARD ([phone])[facility] [address] CBC (HEMOGRAM)on 04-29-2025 Erythrocyte distribution width (RBC) [Ratio] 13.5 % Normal 11.5-15.0 [facility] Comment on above: Performed By: #### L AB294 ####Groover Operator: STEFANIE WARD ([phone])[facility])[address] [place] [address] Hematocrit (Bld) [Volume fraction] 38.6 % Low 40.0-52.0 [facility] Comment on above: Performed By: #### L AB294 ####Groover Operator: STEFANIE WARD ([phone])[address] Hemoglobin (Bld) [Mass/Vol] 12.4 g/dL Low 13.0-18.0 [facility] Comment on above: Performed By: #### L AB294 ####Groover Operator: STEFANIE WARD ([phone])[facility] ([facility])[address] [place] [address] MCH (RBC) [Entitic mass] 27.3 pg Normal 26.0-34.0 [facility] Comment on above: Performed By: #### L AB294 ####Groover Operator: STEFANIE WARD ([phone])[facility])[address] [place] [address] MCHC 32.1 % Normal 30.5-36.0 [facility] Comment on above: Performed By: #### L AB294 ####Groover Operator: STEFANIE WARD ([phone])[facility] ([facility])[address] [place] [address] MCV (RBC) [Entitic vol] 85.0 fL Normal 77.0-99.0 [facility] Comment on above: Performed By: #### L AB294 ####Groover Operator: STEFANIE WARD ([phone])[facility])[address] [place] [address] Platelet mean volume (Bld) [Entitic vol] 11.3 fL Normal 9.0-12.7 [facility] Comment on above: Performed By: #### L AB294 ####Groover Operator: STEFANIE WARD ([phone])[facility] ([facility])[address] [place] [address] Platelets (Bld) [#/Vol] 145 10*3/uL Normal 140-440 [facility] Comment on above: Performed By: #### L AB294 ####Groover Operator: STEFANIE WARD ([phone])[facility] ([facility])[address] [place] [address] RBC (Bld) [#/Vol] 4.54 10*6/uL Normal 4.40-5.90 [facility] Comment on above: Performed By: #### L AB294 ####Groover Operator: STEFANIE WARD ([phone])[facility] ([facility])[address] [place] [address] WBC (Bld) [#/Vol] 13.5 10*3/uL High 3.6-10.7 [facility] Comment on above: Performed By: #### L AB294 ####Groover Operator: STEFANIE WARD ([phone])[facility] ([facility])[address] [place] [address] CBC panel Auto (Bld)on 04-29 Erythrocyte distribution width (RBC) [Ratio] 13.5 % 11.5 - 15.0 % [facility] Hematocrit (Bld) [Volume fraction] 38.6 % Low 40.0 - 52.0 % [facility] Hemoglobin (Bld) [Mass/Vol] 12.4 g/dL Low 13.0 - 18.0 g/dL [facility] Interpretation and review of laboratory results Abnormal [facility] MCH (RBC) [Entitic mass] 27.3 pg 26. 0 - 34.0 pg [facility] MCHC (RBC) [Mass/Vol] 32.1 % 30.5 - 36.0 % [facility] MCV (RBC) [Entitic vol] 85 fL 77.0 - 99.0 fL [facility] Platelet mean volume (Bld) [Entitic vol] 11.3 fL 9.0 - 12.7 fL [facility] Platelets (Bld) [#/Vol] 145 10*3/uL 140 - 440 10*3/uL [facility] RBC (Bld) [#/Vol] 4.54 10*6/uL 4.40 - 5.9 0 10*6/uL [facility] WBC (Bld) [#/Vol] 13.5 10*3/uL High 3.6 - 10.7 10*3/uL [facility] Calcium.ionized [Moles/Vol]o n 04-29-2025 Calcium.ionized (Bld) [Moles/Vol] 4.4 mg/dL 4.30 - 5.20 mg/dL [facility] Interpretation and review of laboratory results Normal [facility] PH, IONIZED CALCIUM 7.38 7.31 - 7.46 [facility] Laboratory - Chemistry and C hemistry - challengeon 04-29-2025 Glucose [Mass/Vol] 116 mg/dL High 70 - 100 mg/dL [facility] Glucose [Mass/Vol] 131 mg/dL High 70 - 100 mg/dL [facility] Glucose [Mass/Vol] 126 mg/dL High 70 - 100 mg/dL [facility] Glucose [Mass/Vol] 119 mg/dL High 70 - 100 mg/dL [facility] Glucose [Mass/Vol] 136 mg/dL High 70 - 100 mg/dL [facility] Glucose [Mass/Vol] 127 mg/dL High 70 - 100 mg/dL [facility] Glucose [Mass/Vol] 106 mg/dL High 70 - 100 mg/dL [facility] Glucose [Mass/Vol] 130 mg/dL High 70 - 100 mg/dL [facility] Glucose [Mass/Vol] 118 mg/dL High 70 - 100 mg/dL [facility] Magnesium [Mass/Vol] 2.4 mg/dL 1.6 - 2 .6 mg/dL [facility] Glucose [Mass/Vol] 133 mg/dL High 70 - 100 mg/dL [facility] Glucose [Mass/Vol] 133 mg/dL High 70 - 100 mg/dL [facility] Glucose [Mass/Vol] 152 mg/dL High 70 - 100 mg/dL [facility] Glucose [Mass/Vol] 136 mg/dL High 70 - 100 mg/dL [facility] Laboratory - Coagulationon 0 04-29-2025 aPTT Coag (PPP) [Time] 34.1 s High 20.0 - 30.5 s [facility] INR Coag (PPP) [Relative time] 1.1 {INR} 0.9 - 1.1 [facility] Comment on above: Recommended Anticoag ulant Therapy: SEE BELOW ----- INR of 2.0 - 3.0 : - Prophylaxis of Venous Thrombosis (high-risk surgery) - Treatment of Venous Thrombosis - Treatment of Pulmonary Embolism (Includes tissue heart valves, Acute Myocardial Infarction to prevent systemic embolism, Valvular Heart Disease, and Atrial Fibrillation) ----- INR of 2.5 - 3.5 : - Mechanical Prosthetic Valves (high risk) - If oral anticoagulant therapy is used to prevent Myocardial Infarction PT Coag (Bld) [Time] 11.7 s 9.0 - 12.0 s [facility] MAGNESIUMon 04-29-2025 Magnesium [Mass/Vol] 2.4 mg/dL Normal 1.6-2.6 [facility] Comment on above: Result Comment: KIKO Solorio COMMENTS: Higher values can be expected in females during menses. Performed By: #### L AB103, LAB15 ####Groover Operator: STEFANIE WARD ([phone])[facility] ([address] Magnesium [Mass/Vol]on 04-29 Interpretation and review of laboratory results Normal [facility] Higher values can be expected in females during menses. [facility] No Panel Informationon 04-29 Interpretation and review of laboratory results Abnormal [facility] Performed by: [place] [address] CLIA ID: [id number] [facility] Interpretation and review of laboratory results Abnormal [facility] Performed by: [place] [address] CLIA ID: [id number] [facility] Interpretation and review of laboratory results Abnormal [facility] Performed by: [place] [address] CLIA ID: [id number] [facility] Interpretation and review of laboratory results Abnormal [facility] Performed by: [facility] [address] [place] [address], [place] [address] CLIA ID: [id number] [facility] Interpretation and review of laboratory results Abnormal [facility] Performed by: [facility], [address] [place] [address], [place] [address] CLIA ID: [id number] [facility] Interpretation and review of laboratory results Abnormal [facility] Performed by: [address], [place] [address] CLIA ID: [id number] [facility] Interpretation and review of laboratory results Abnormal [facility] Performed by: [facility], [address] [place] [address], [place] [address] CLIA ID: [id number] [facility] Interpretation and review of laboratory results Abnormal [facility] Performed by: [facility], [address] [place] [address] CLIA ID: [id number] [facility] Interpretation and review of laboratory results Abnormal [facility] Performed by: [address] [place] [address] CLIA ID: [id number] [facility] Interpretation and review of laboratory results Abnormal [facility] Performed by: [address] [place] [address] CLIA ID: [id number] [facility] Interpretation and review of laboratory results Abnormal [facility] Interpretation and review of laboratory results Abnormal [facility] Performed by: [address] [place] [address] CLIA ID: [id number] [facility] Interpretation and review of laboratory results Abnormal [facility] Performed by: [address] [place] [address] CLIA ID: [id number] [facility] Interpretation and review of laboratory results Abnormal [facility] Performed by: [address] [place] [address] CLIA ID: [id number] [facility] PROTIME AND APTTon 5 aPTT Coag (Bld) [Time] 34.1 s High 20.0-30.5 [facility] Comment on above: Performed By: #### L [id number] ####Groover Operator: STEFANIE WARD ([phone])[facility])[address] [place] [address] INR Coag (PPP) [Relative time] 1.1 {INR} Normal 0.9-1.1 [facility] Comment on above: Result Comment: Nabeel mmended Anticoagulant Therapy: SEE BELOW ----- INR of 2.0 - 3.0 : - Prophylaxis of Venous Thrombosis (high-risk surgery) - Treatment of Venous Thrombosis - Treatment of Pulmonary Embolism (Includes tissue heart valves, Acute Myocardial Infarction to prevent systemic embolism, Valvular Heart Disease, and Atrial Fibrillation) ----- INR of 2.5 - 3.5 : - Mechanical Prosthetic Valves (high risk) - If oral anticoagulant therapy is used to prevent Myocardial Infarction Performed By: #### L [id number] ####Groover Operator: STEFANIE WARD ([id number])[address] PT Coag (PPP) [Time] 11.7 s Normal 9.0-12.0 [facility] Comment on above: Performed By: #### L [id number] ####Groover Operator: STEFANIE WARD ([id number])[address] Progress Noteon 04-29-2025 Progress Note Department of Internal Medicine Division of Endocrinology, Diabetes, & Metabolism Endocrinology Note Patient Name: Bright Keen : 1970 AGE: 55 y.o. Room[facility]: [facility] Admission Date: 04/28/2025 Visit Date: 04/29/2025 Reason for Endocrine Consult: post heart Provider/Team Requesting Consult: CTS PCP: Asher Jesus PA-C Outpt Geodetic Surveyor: No ASSESSMENT: Stress hyperglycemia AVR HLD/HTN Obesity Body mass index is 38.01 kg/m?. PLAN: Stop insulin drip Start Humalog low sliding scale only ICU goal <180 GMF goal <150 POCT BG ACHS Hypoglycemia management per protocol Carb controlled diet ANTICIPATED ENDOCRINE HOME GOING RECOMMENDATIONS: Optimized for Discharge from Endocrine standpoint: yes Home Going Endocrine Rx Recommendations-- NONE Outpt Follow Up-- PCP SUBJECTIVE/HPI: CHIEF COMPLAINT: No chief complaint on file. S/p AVR BGL below- stable Insulin gtt on 0.5/hr No pressors on Extubated up in chair awake alert Vss 02 nc He denies any history of diabetes or thyroid disease Has only had juice and Jell-O so far for breakfast this morning Denies nausea vomiting abdominal pain Spoke with family in room and nursing Type of DM: NA Onset of DM: NA Home DM Medication Regimen: NA DM control (last A1c/glucose data): Lab Results Component Value Date HGBA1C 5.4 04/21/2025 Glucose Date/Time Value Ref Range Status 04/29/2025 09:21 AM 119 (H) 70 - 100 mg/dL Final 04/29/2025 08:42 AM 136 (H) 70 - 100 mg/dL Final 04/29/2025 07:11 AM 127 (H) 70 - 100 mg/dL Final 04/29/2025 06:09 AM 106 (H) 70 - 100 mg/dL Final 04/29/2025 05:00 AM 130 (H) 70 - 100 mg/dL Final 04/29/2025 04:16 AM 118 (H) 70 - 100 mg/dL Final Review of Systems ROS negative except for those mentioned in HPI. OBJECTIVE: Vitals: 04/29/25 0430 04/29/25 0445 04/29/25 0500 04/29/25 0547 BP: BP Location: Patient Position: Pulse: 79 84 82 Resp: 14 19 16 Temp: TempSrc: SpO2: 97% 96% 95% Weight: 264 lb 14.4 oz (120 kg) Height: Physical Exam Vitals and nursing note reviewed. Constitutional: General: He is awake. He is not in acute distress. Appearance: He is ill-appearing. He is not toxic-appearing. Interventions: Nasal cannula in place. HENT: Head: Normocephalic. Mouth/Throat: Mouth: Mucous membranes are moist. Cardiovascular: Rate and Rhythm: Normal rate. Pulmonary: Effort: Pulmonary effort is normal. No respiratory distress. Abdominal: Tenderness: There is no guarding. Skin: General: Skin is warm and dry. Coloration: Skin is pale. Comments: Intact incision Neurological: Mental Status: He is alert and oriented to person, place, and time. Psychiatric: Mood and Affect: Mood normal. 24 hour intake/output: Intake/Output Summary (Last 24 hours) at 04/29/2025 0936 Last data filed at 04/29/2025 0600 Gross per 24 hour Intake 5048 ml Output 2028 ml Net 3020 ml Diet: Adult diet Regular; Low Sodium (2 gm) Medications (as per EMR): HomeMeds: Current Outpatient Medications Medication Instructions aspirin 81 mg, Oral, Daily atorvastatin (LIPITOR) 40 mg, Oral, Daily chlorhexidine (Peridex) 0.12 % solution 15 mL, Once mupirocin (Bactroban) 2 % ointment Apply liberal amount per nostril the night before surgery and then again the morning of surgery Scheduled Meds:Scheduled Meds[1] Continuous Infusions:Continuous Meds[2] PRN Meds:PRN Meds[3] Diagnostic Workup: I reviewed pertinent Laboratory results, Radiographic results, and Other Clinical Notes at the time of today's encounter. Labs: No components found for: LABA1C No components found for: EAG Lab Results Component Value Date NA 137 04/29/2025 K 5.0 04/29/2025 CL 110 (H) 04/29/2025 CO2 20 (L) 04/29/2025 BUN 17 04/29/2025 CREATININE 0.89 04/29/2025 GLUCOSE 131 (H) 04/29/2025 CALCIUM 8.0 (L) 04/29/2025 Lab Results Component Value Date CHOL 177 03/05/2025 Lab Results Component Value Date TRIG 44 03/05/2025 Lab Results Component Value Date HDL 35 (L) 03/05/2025 Lab Results Component Value Date LDLCALC 133 (H) 03/05/2025 No results found for: VLDL Lab Results Component Value Date CHOLHDLRATIO 5 03/05/2025 No results found for: [id number] No results found for: TSH, F0PUIYB, S9SJFNU, THYROIDAB Radiology reportsas per the Radiologist Radiology: ECG 12 lead Result Date: 04/28/2025 Sinus rhythm Anterior infarct, old Prolonged QT interval POCT glucose meter Result Date: 04/28/2025 Performed by: [facility], [address] [place], [place] [id number] CLIA ID: [id number] History/Other: Past Medical History: Medical History[4] Past Surgical History: Surgical History[5] Allergy(ies): Allergies[6] Family History: Family History[7] Social History: Social History[8] Portions of the information within this encounter were entered using an electronic dictation system. Best attempts (more content not included)... Normal [facility] Progress Note [facility] Anticoagulation Management Service (NADIR) Inpatient Warfarin Consult HPI: Bright Keen is a 55 y.o. male admitted on 04/28/2025 for Aortic stenosis, severe. Medical History[1] Patient is newly referred to the [facility] clinic for warfarin management. Pt was referred by KISHA Pitt CNP. Pt is on warfarin for mechanical AVR and has a goal INR 2.0 - 3.0. Duration of therapy= lifelong. Reason for warfarin instead of DOAC: mechanical valve PCP: Asher Jesus PA-C S/sx of bleeding= none currently Interacting medications= ASA Labs: Recent Labs 04/28/25 1322 04/29/25 0224 HGB 13.0 13.1 12.4* HCT 39.5* 38.6* PLT 146 145 Recent Labs 04/29/25 0224 INR 1.1 Date INR Dose 04/29 1.1 3mg Assessment/Plan: 1. INR is subtherapeutic due to new start warfarin. Warfarin 3mg ordered to start today per CTS team. Discussed with CTS team, no heparin bridge today per Dr. Ulloa. 2. Will monitor for s/s of bleeding and drug interactions and adjust dose accordingly. 3. Will facilitate NADIR follow-up upon discharge. 4. Provided warfarin education. Completed preop education with patient last week. Will review carlos points with patient at time of discharge. Thank you for this consult Jenae Delcid RPh, PharmD [facility] Consult Service is available daily [phone] via [employer] Secure Chat. If no response, please page [phone]. [1] Past Medical History: Diagnosis Date Heart valve disorder Hyperlipidemia Hypertension Stroke (HCC) no residual Normal [facility] Progress Note Attestation signed by Jadiel Wellington DO at 04/29/2025 2:10 PM I have reviewed and agree with DEJA note, my plan/corrections are below Patient is SP Mechanical AVR on 04/28 Post op course uncomplicated Neuro: -GCS 15 - Pain control adequate - poor sleep last night, treated with ativan. Melatonin now added, will make standing order Cardiac: - hemodynamics at goal with no vasoactives. Cap refill is brisk - Maintain MAP >65 - post sternotomy precautions Pulm: - Chest tubes to water seal - Extubated to nasal o2 04/28 GI: - Diet PO - Ppx : - Matias to remove today - Electrolytes acceptable - Fluid balance- +3.2L, observe for now ID: - Observe off abx - afebrile Endo: - Insulin sliding scale - No indication for steroids Heme: - warfarin starting for AVR - hbg/plt stable Critical care time thus far today 35 minutes Cardiothoracic Surgery/[facility] Progress Note PATIENT NAME: Bright Keen DATE: 04/29/25 HPI: 55 y.o. male w pmHx of severe , CHF, HTN and recent ischemic stroke was seen in OP valve clinic for surgical evaluation. Of note patient was admitted to [facility] on 03/04/25 for stroke like symptoms, with MRI revealing four tiny acute embolic infarcts in the right frontal and occipital lobes, and left parietal lobe. Pt was treated with TNK and had drastic improvement in symptoms. During further workup, a transthoracic echo was obtained, which demonstrated EF 55%, LA and RA moderately dilated, and severe aortic valve stenosis concerning for potential etiology of cryptogenic stroke, peak/mean gradients 84/53 mm Hg, LITO 1.0 cm^2. He consent and was taken to the operating room for AVR and PFO repair with Dr. Ulloa on 04/28/25 Surgery/Procedure: 04/28/25: s/p AVR (#25 [facility]) PFO repair and KATY with Dr. Ulloa Interval History: 04/29/25, POD# 1: BP 133-162/83-96 with HR in the 90's. Patient off all vasoactives. No additional fluid challenge. Patient up in chair this morning with assist of nursing. He does report not sleeping overnight. He received a one-time dose of Ativan 0.5 mg with no relief. Chest pain has been as low as 6/10 overnight. He is taking prn morphone mg IVP and oxycodone 10 mg po. Spouse present. Review of Systems Constitutional: Negative for diaphoresis, fatigue and fever. Respiratory: Negative for cough, shortness of breath and wheezing. Cardiovascular: Positive for chest pain. Negative for palpitations and leg swelling. Gastrointestinal: Negative for abdominal distention, constipation and diarrhea. Skin: Negative for color change, pallor and rash. Objective: CT output cc/24hrs: 368 ml UO cc/24hrs: 1360 ml Last BM Date: 04/27/25 Vitals: BP: 135/81, MAP (mmHg): 84, BP Method: Arterial line Heart Rate: 82 Resp: 16 Temp: 36.2 ?C (97.2 ?F), Temp Source: Temporal BMI (Calculated): 38.01 Pacer Wires: v wires CXR: 04/29/2025 BMP: Recent Labs 04/28/25 1322 04/29/25 0224 NA 140 137 K 3.5 5.0 CL 113* 110* CO2 19* 20* BUN 15 17 CREATININE 0.81 0.89 CALCIUM 7.5* 8.0* MG 3.5* 2.4 CBC: Recent Labs 04/28/25 1322 04/29/25 0224 WBC 24.3* 13.5* HGB 13.0 13.1 12.4* HCT 39.5* 38.6* PLT 146 145 MCV 83.9 85.0 RDW 13.0 13.5 INR: Recent Labs 04/28/25 1322 04/29/25 0224 INR 1.2* 1.1 Physical Exam Vitals and nursing note reviewed. Constitutional: Interventions: Nasal cannula in place. Neck: Vascular: No JVD. Trachea: Trachea normal. Cardiovascular: Rate and Rhythm: Normal rate. Pulses: Normal pulses. Radial pulses are 2+ on the right side and 2+ on the left side. Heart sounds: Normal heart sounds, S1 normal and S2 normal. Arteriovenous access: Left arteriovenous access is present. Comments: Mechanical valve heard Pulmonary: Effort: Pulmonary effort is normal. Breath sounds: Normal breath sounds. Abdominal: General: Bowel sounds are normal. Palpations: Abdomen is soft. Genitourinary: Comments: Matias catheter to straight drain Musculoskeletal: Right lower leg: No edema. Left lower leg: No edema. Skin: General: Skin is warm and dry. Capillary Refill: Capillary refill takes 2 to 3 seconds. Findings: Bruising and ecchymosis present. Comments: Surgical Incisions: edges well approximated; clean, dry, with no drainage noted. Surrounding skin no redness, warmth, or signs of infection noted. Neurological: Mental Status: He is alert. Psychiatric: Behavior: Behavior is cooperative. Assessment: Severe s/p AVR [facility] CHF Post operative Pulm Management: Normal Post-operative Course Post-operative Atrial Fibrillation: []Yes [x] No Plan: Patient Status: ICU Medications: Start ASA, statin -may consider BB if ectopy/hypertensive Consult to Nadir for coumadin life long therapy- 2-3 - (more content not included)... Normal [facility] XR CHEST 1 VIEWon 04-29-2025 XR CHEST 1 VIEW Patient Name: BRIGHT KEEN : 1970 [facility]#: [id number] Exam Date/Time: 04/29/2025 05:26 Procedure: XR CHEST 1 VIEW Ordering Provider: ALVARADO ANDREW Reason For Exam: Shortness of breath EXAM: XR Chest, 1 View CLINICAL INDICATION: Shortness of breath right IJ TECHNIQUE: Frontal view of the chest. COMPARISON: 04/28/2025. FINDINGS: LUNGS AND PLEURAL SPACES: Minimal left basilar atelectasis. No pneumothorax. HEART: Mild cardiomegaly is redemonstrated. Prosthetic heart valve. MEDIASTINUM: See below. BONES/JOINTS: Median sternotomy. No acute fracture. TUBES, LINES AND DEVICES: ET and NG tubes, and mediastinal drain were removed. Right IJ catheter tip at mid SVC, unchanged. IMPRESSION: 1. ET and NG tubes, and mediastinal drain were removed. Stable right IJ catheter. 2. Minimal left basilar atelectasis. Report Dictated on Electronically Signed By: Chad Moore DO Electronically Signed Date/Time: 04/29/2025 6:28 AM EDT [facility] XR Chest Single viewon 04-29 1. ET and NG tubes, and mediastinal drain were removed. Stable right IJ catheter. 2. Minimal left basilar atelectasis. Report Dictated on Electronically Signed By: Chad Moore DO Electronically Signed Date/Time: 04/29/2025 6:28 AM EDT [facility] Patient Name: BRIGHT KEEN : 1970 Exam Date/Time: 04/29/2025 05:26 Procedure: XR CHEST 1 VIEW Ordering Provider: ALVARADO ANDREW Reason For Exam: Shortness of breath EXAM: XR Chest, 1 View CLINICAL INDICATION: Shortness of breath right IJ TECHNIQUE: Frontal view of the chest. COMPARISON: 04/28/2025. FINDINGS: LUNGS AND PLEURAL SPACES: Minimal left basilar atelectasis. No pneumothorax. HEART: Mild cardiomegaly is redemonstrated. Prosthetic heart valve. MEDIASTINUM: See below. BONES/JOINTS: Median sternotomy. No acute fracture. TUBES, LINES AND DEVICES: ET and NG tubes, and mediastinal drain were removed. Right IJ catheter tip at mid SVC, unchanged. [facility] Chad Moore DO - 04/29/2025 Patient Name: BRIGHT KEEN : 1970 Exam Date/Time: 04/29/2025 05:26 Procedure: XR CHEST 1 VIEW Ordering Provider: ALVARADO ANDREW Reason For Exam: Shortness of breath EXAM: XR Chest, 1 View CLINICAL INDICATION: Shortness of breath right IJ TECHNIQUE: Frontal view of the chest. COMPARISON: 04/28/2025. FINDINGS: LUNGS AND PLEURAL SPACES: Minimal left basilar atelectasis. No pneumothorax. HEART: Mild cardiomegaly is redemonstrated. Prosthetic heart valve. MEDIASTINUM: See below. BONES/JOINTS: Median sternotomy. No acute fracture. TUBES, LINES AND DEVICES: ET and NG tubes, and mediastinal drain were removed. Right IJ catheter tip at mid SVC, unchanged. IMPRESSION: 1. ET and NG tubes, and mediastinal drain were removed. Stable right IJ catheter. 2. Minimal left basilar atelectasis. Report Dictated on Electronically Signed By: Chad Moore DO Electronically Signed Date/Time: 04/29/2025 6:28 AM EDT [facility] [employer] [facility] Study observation (narrative) [facility] alth XR Chest Single viewOrdered By: Chad Moore on 04-29-2025 [employer] Work Phone: 30on 04-28-2025 30 Problem: Pain - Adult Goal: Verbalizes/displays adequate comfort level or baseline comfort level Outcome: Not Progressing Flowsheets (Taken 04/28/20251823) Verbalizes/displays adequate comfort level or baseline comfort level: Encourage patient to monitor pain and request assistance Assess pain using appropriate pain scale Administer analgesics based on type and severity of pain and evaluate response Implement non-pharmacological measures as appropriate and evaluate response Consider cultural and social influences on pain and pain management Notify Licensed Independent Practitioner if interventions unsuccessful or patient reports new pain Problem: Knowledge Deficit Goal: Patient/family/careg iver demonstrates understanding of disease process, treatment plan, medications, and discharge instructions Outcome: Progressing Flowsheets (Taken 04/28/20251823) Patient/family/careg iver demonstrates understanding of disease process, treatment plan, medications, and discharge instructions: Provide teaching at level of understanding Provide teaching via preferred learning methods Problem: Potential for Compromised Skin Integrity Goal: Skin Integrity is Maintained or Improved Outcome: Progressing Flowsheets (Taken 04/28/20251823) Skin integrity is maintained or improved: Assess and monitor skin integrity Identify patients at risk for skin breakdown on admission and per policy Turn patient Relieve pressure to bony prominences Avoid shearing Keep skin clean and dry Monitor patient's hygiene practices Goal: Nutritional status is improving Outcome: Progressing Flowsheets (Taken 04/28/20251823) Nutritional status is improving: Monitor and assess patient for malnutrition (ex- brittle hair, bruises, dry skin, pale skin and conjunctiva, muscle wasting, smooth red tongue, and disorientation) Monitor patient's weight and dietary intake as ordered or per policy Problem: Urinary Incontinence Goal: Perineal skin integrity is maintained or improved Outcome: Progressing Flowsheets (Taken 04/28/20251823) Perineal skin integrity is maintained or improved: Keep skin clean and dry Provide privacy when changing patient's incontinence device to maintain their dignity Problem: Safety - Adult Goal: Free from fall injury Outcome: Progressing Flowsheets (Taken 04/28/20251823) Free from fall injury: Instruct family/caregiver on patient safety Problem: Discharge Planning Goal: Discharge to home or other facility with appropriate resources Outcome: Progressing Flowsheets (Taken 04/28/20251823) Discharge to home or other facility with appropriate resources: Identify barriers to discharge with patient and caregiver Problem: Chronic Conditions and Co-morbidities Goal: Patient's chronic conditions and co-morbidity symptoms are monitored and maintained or improved Outcome: Progressing Flowsheets (Taken 04/28/20251823) Care Plan - Patient's Chronic Conditions and Co-Morbidity Symptoms are Monitored and Maintained or Improved: Monitor and assess patient's chronic conditions and comorbid symptoms for stability, deterioration, or improvement Update acute care plan with appropriate goals if chronic or comorbid symptoms are exacerbated and prevent overall improvement and discharge Problem: Pain - Adult Goal: Verbalizes/displays adequate comfort level or baseline comfort level Outcome: Not Progressing Flowsheets (Taken 04/28/20251823) Verbalizes/displays adequate comfort level or baseline comfort level: Encourage patient to monitor pain and request assistance Assess pain using appropriate pain scale Administer analgesics based on type and severity of pain and evaluate response Implement non-pharmacological measures as appropriate and evaluate response Consider cultural and social influences on pain and pain management Notify Licensed Independent Practitioner if interventions unsuccessful or patient reports new pain Normal [facility] BLOOD GAS ARTERIALon 025 AMOUNT OF OXYGEN 60 Normal [facility] Comment on above: Performed By: #### L [id number] ####Groover Operator: STEFANIE WARD ([phone])[facility] ([facility])[address] [place] [address] Base excess Calc (Bld) [Moles/Vol] -5.2000 mmol/L Low -3.0-3.0 [facility] Comment on above: Performed By: #### L [id number] ####Groover Operator: STEFANIE WARD ([phone])[facility] ([facility])[address] [place] [address] CO2 [Moles/Vol] 21.5 mmol/L Low 23.0-27.0 [facility] Comment on above: Performed By: #### L [id number] ####Groover Operator: STEFANIE WARD ([phone])[facility] ([facility])[address] [place] [address] HCO3 (Bld) [Moles/Vol] 20.3 mmol/L Low 21.0-25.0 [facility] Comment on above: Performed By: #### L [id number] ####Groover Operator: STEFANIE WARD ([phone])[facility])[address] [place] [address] Hemoglobin (Bld) [Mass/Vol] 13.9 g/dL Normal Screen only [facility] Comment on above: Performed By: #### L [id number] ####Groover Operator: STEFANIE WARD ([phone])[facility])[address] [place] [address] OXYGEN SATURATION (%) IN ARTERIAL BLOOD 98.5 % Normal 95.0-100.0 [facility] Comment on above: Performed By: #### L [id number] ####Groover Operator: STEFANIE WARD ([phone])[facility] ([facility])[address] [place] [address] PCO2 ARTERIAL 39.3 mm Hg Normal >35.0-<45.0 [facility] Comment on above: Performed By: #### L [id number] ####Groover Operator: STEFANIE WARD ([phone])[facility])[address] [place] [address] PH ARTERIAL 7.330 Low 7.350-7.450 [facility] Comment on above: Performed By: #### L [id number] ####Groover Operator: STEFANIE WARD ([phone])[facility] ([facility])[address] [place] [address] PO2 ARTERIAL 163.7 mm Hg High 80.0-100.0 [facility] Comment on above: Performed By: #### L [id number] ####Groover Operator: STEFANIE WARD ([phone])[facility] ([facility])[address] [place] [address] SOURCE OF OXYGEN Ventilator Normal [facility] Comment on above: Performed By: #### L [id number] ####Groover Operator: STEFANIE WARD ([phone])[facility] ([facility])[address] [place] [address] BLOOD GAS, VENOUSon 04-28-20 25 AMOUNT OF OXYGEN Normal [facility] Comment on above: Result Comment: KIKO Solorio COMMENTS: Assessment of oxygenation is best done with an arterial blood gas determination. Reference ranges for pO2, bicarbonate, and base excess are for mixed venous blood. Specimens drawn from a peripheral vein will often have higher values. Performed By: #### L [id number] ####Groover Operator: STEFANIE WARD ([phone])[facility] ([facility])[address] [place] [address] Base excess Calc (BldV) [Moles/Vol] -7.2000 mmol/L Low -3.0-3.0 [facility] Comment on above: Performed By: #### L [id number] ####Groover Operator: STEFANIE WARD ([phone])[facility])[address] [place] [address] CO2 [Moles/Vol] 20.3 mmol/L Low 24.0-28.0 [facility] Comment on above: Performed By: #### L [id number] ####Groover Operator: STEFANIE WARD ([phone])[facility] ([facility])[address] [place] [address] HCO3 (Bld) [Moles/Vol] 19.1 mmol/L Low 23.0-27.0 [facility] Comment on above: Performed By: #### L AB79 ####Groover Operator: STEFANIE WARD ([phone])[facility] ([facility])[address] [place] [address] Hemoglobin (Bld) [Mass/Vol] 13.0 g/dL Normal Screen only [facility] Comment on above: Performed By: #### L AB79 ####Groover Operator: STEFANIE WARD ([phone])[facility] ([facility])[address] [place] [address] OXYGEN (MM HG) IN VENOUS BLOOD 49.9 mm Hg Normal [facility] Comment on above: Performed By: #### L AB79 ####Groover Operator: STEFANIE WARD ([phone])[facility])[address] [place] [address] OXYGEN SATURATION (%) IN VENOUS BLOOD 77.5 % Normal [facility] Comment on above: Performed By: #### L AB79 ####Groover Operator: STEFANIE WARD ([phone])[facility])[address] [place] [address] PCO2, SANTY 41.3 mm Hg Normal 40.0-55.0 [facility] Comment on above: Performed By: #### L AB79 ####Groover Operator: STEFANIE WARD ([phone])[facility])[address] [place] [address] PH VENOUS 7.282 Low 7.330-7.430 [facility] Comment on above: Performed By: #### L AB79 ####Groover Operator: STEFANIE WARD ([phone])[facility])[address] [place] [address] SOURCE OF OXYGEN Ventilator Normal [facility] Comment on above: Performed By: #### L AB79 ####Groover Operator: STEFANIE WARD ([phone])[facility])[address] [place] [address] CALCIUM, IONIZEDon 5 CALCIUM IONIZED 4.40 mg/dL Normal 4.30-5.20 [facility] Comment on above: Order Comment: Obtai n PRN and check ionized Ca level if serum Ca level less than 8.0 Performed By: #### L AB54 ####Groover Operator: STEFANIE WARD ([phone])[facility])[address] [place] [address] PH, IONIZED CALCIUM 7.36 Normal 7.31-7.46 [facility] Comment on above: Order Comment: Obtai n PRN and check ionized Ca level if serum Ca level less than 8.0 Performed By: #### L AB54 ####Groover Operator: STEFANIE WARD ([phone])[facility] ([facility])[address] [place] [address] CBC (HEMOGRAM)on 04-28-2025 Erythrocyte distribution width (RBC) [Ratio] 13.0 % Normal 11.5-15.0 [facility] Comment on above: Performed By: #### L AB294 ####Groover Operator: STEFANIE WARD ([phone])[facility])[address] [place] [address] Hematocrit (Bld) [Volume fraction] 39.5 % Low 40.0-52.0 [facility] Comment on above: Performed By: #### L AB294 ####Groover Operator: STEFANIE WARD ([phone])[facility])[address] [place] [address] Hemoglobin (Bld) [Mass/Vol] 13.1 g/dL Normal 13.0-18.0 [facility] Comment on above: Performed By: #### L AB294 ####Groover Operator: STEFANIE WARD ([phone])[facility])[address] [place] [address] MCH (RBC) [Entitic mass] 27.8 pg Normal 26.0-34.0 [facility] Comment on above: Performed By: #### L AB294 ####Groover Operator: STEFANIE WARD ([phone])[facility])[address] [place] [address] MCHC 33.2 % Normal 30.5-36.0 [facility] Comment on above: Performed By: #### L AB294 ####Groover Operator: STEFANIE WARD ([phone])[facility])[address] [place] [address] MCV (RBC) [Entitic vol] 83.9 fL Normal 77.0-99.0 [facility] Comment on above: Performed By: #### L AB294 ####Groover Operator: STEFANIE WARD ([phone])[facility])[address] [place] [address] Platelet mean volume (Bld) [Entitic vol] 11.3 fL Normal 9.0-12.7 [facility] Comment on above: Performed By: #### L AB294 ####Groover Operator: STEFANIE WARD ([phone])[facility] ([facility])[address] [place] [address] Platelets (Bld) [#/Vol] 146 10*3/uL Normal 140-440 [facility] Comment on above: Performed By: #### L AB294 ####Groover Operator: STEFANIE WARD ([phone])[facility])[address] [place] [address] RBC (Bld) [#/Vol] 4.71 10*6/uL Normal 4.40-5.90 [facility] Comment on above: Performed By: #### L AB294 ####Groover Operator: STEFANIE WARD ([phone])[facility] ([facility])[address] [place] [address] WBC (Bld) [#/Vol] 24.3 10*3/uL High 3.6-10.7 [facility] Comment on above: Performed By: #### L AB294 ####Groover Operator: STEFANIE WARD ([phone])[facility])[address] [place] [address] CBC panel Auto (Bld)on 04-28 Erythrocyte distribution width (RBC) [Ratio] 13 % 11.5 - 15.0 % [facility] Hematocrit (Bld) [Volume fraction] 39.5 % Low 40.0 - 52.0 % [facility] Hemoglobin (Bld) [Mass/Vol] 13.1 g/dL 13.0 - 18.0 g/dL [facility] Interpretation and review of laboratory results Abnormal [facility] MCH (RBC) [Entitic mass] 27.8 pg 26. 0 - 34.0 pg [facility] MCHC (RBC) [Mass/Vol] 33.2 % 30.5 - 36.0 % [facility] MCV (RBC) [Entitic vol] 83.9 fL 77.0 - 99.0 fL [facility] Platelet mean volume (Bld) [Entitic vol] 11.3 fL 9.0 - 12.7 fL [facility] Platelets (Bld) [#/Vol] 146 10*3/uL 140 - 440 10*3/uL [facility] RBC (Bld) [#/Vol] 4.71 10*6/uL 4.40 - 5.9 0 10*6/uL [facility] WBC (Bld) [#/Vol] 24.3 10*3/uL High 3.6 - 10.7 10*3/uL [facility] COMPREHENSIVE METABOLIC PANE Navneet 04-28-2025 Albumin [Mass/Vol] 2.7 g/dL Low 3.5-5.0 [facility] Comment on above: Performed By: #### L AB103, LAB17 ####Groover Operator: STEFANIE WARD ([phone])[address] ALP [Catalytic activity/Vol] 37 U/L Low 40-150 [facility] Comment on above: Performed By: #### L AB103, LAB17 ####Groover Operator: STEFANIE WARD ([phone])[facility] ([facility])[address] [place] [address] ALT [Catalytic activity/Vol] 19 U/L Normal <40 [facility] Comment on above: Performed By: #### L AB103, LAB17 ####Groover Operator: STEFANIE WARD ([phone])[facility])[address] [place] [address] Anion gap [Moles/Vol] 8 mmol/L Normal 3-13 [facility] Comment on above: Performed By: #### Nahun MCCLELLAN, LAB17 ####Groover Operator: STEFANIE WARD ([phone])[facility] ([facility])[address] [place] [address] AST [Catalytic activity/Vol] 55 U/L High <34 [facility] Comment on above: Result Comment: TC Potential interference from hemolysis Performed By: #### Nahun MCCLELLAN, LAB17 ####Groover Operator: STEFANIE WARD ([phone])[facility] ([facility])[address] [place] [address] Bilirubin [Mass/Vol] 1.1 mg/dL Normal <1.2 [facility] Comment on above: Performed By: #### Nahun MCCLELLAN, LAB17 ####Groover Operator: STEFANIE WARD ([phone])[facility] ([facility])[address] [place] [address] Calcium [Mass/Vol] 7.5 mg/dL Low 8.4-10.2 [facility] Comment on above: Performed By: #### Nahun MCCLELLAN, LAB17 ####Groover Operator: STEFANIE WARD ([phone])[facility] ([facility])[address] [place] [address] Chloride [Moles/Vol] 113 mmol/L High 98-107 [facility] Comment on above: Performed By: #### Nahun MCCLELLAN, LAB17 ####Groover Operator: STEFANIE WARD ([phone])[facility] ([facility])[address] [place] [address] [place] CO2 [Moles/Vol] 19 mmol/L Low 22-29 [facility] Comment on above: Performed By: #### Nahun MCCLELLAN, LAB17 ####Groover Operator: STEFANIE WARD ([phone])[facility] ([facility])[address] [place] [address] Creatinine [Mass/Vol] 0.81 mg/dL Normal 0.72-1.25 [facility] Comment on above: Performed By: #### Nahun MCCLELLAN, LAB17 ####Groover Operator: STEFANIE WARD ([phone])[facility])[address] [place] [address] GLOMERULAR FILTRATION RATE ML/MIN/1.73 SQ M.PREDICTED >90.0 Normal >60.0 [facility] Comment on above: Result Comment: Calc ulation based on the Chronic Kidney Disease Epidemiology Collaboration (CKD-EPI) equation refit without adjustment for race Performed By: #### L ELEUTERIO, LAB17 ####Groover Operator: STEFANIE WARD ([phone])[facility] ([facility])[address] [place] [address] [place] Glucose [Mass/Vol] 132 mg/dL High 74-100 [facility] Comment on above: Performed By: #### Nahun MCCLELLAN, LAB17 ####Groover Operator: STEFANIE WARD ([phone])[facility])[address] [place] [address] Potassium [Moles/Vol] 3.5 mmol/L Normal 3.5-5.1 [facility] Comment on above: Result Comment: [facility] potassium values may be up to 0.5 mmol/L lower than serum values. Performed By: #### Nahun MCCLELLAN, LAB17 ####Groover Operator: STEFANIE WARD ([phone])[facility])[address] [place] [address] [place] Protein [Mass/Vol] 4.7 g/dL Low 6.4-8.3 [facility] Comment on above: Performed By: #### L 103, LAB17 ####Groover Operator: STEFANIE WARD ([phone])[facility])[address] [place] [address] [place] Sodium [Moles/Vol] 140 mmol/L Normal 136-145 [facility] Comment on above: Performed By: #### L AB103, LAB17 ####Groover Operator: STEFANIE WARD ([phone])[facility])[address] [place] [address] [place] Urea nitrogen [Mass/Vol] 15 mg/dL Normal 9-23 [facility] Comment on above: Performed By: #### L AB103, LAB17 ####Groover Operator: STEFANIE WARD ([phone])[facility] ([address] Calcium.ionized [Moles/Vol]o n 04-28-2025 Calcium.ionized (Bld) [Moles/Vol] 4.4 mg/dL 4.30 - 5.20 mg/dL [facility] Interpretation and review of laboratory results Normal [facility] PH, IONIZED CALCIUM 7.36 7.31 - 7.46 [facility] Comprehensive metabolic 1998 panelon 04-28-2025 Albumin [Mass/Vol] 2.7 g/dL Low 3.5 - 5.0 g/dL [facility] ALP [Catalytic activity/Vol] 37 U/L Low 40 - 150 U/L [facility] ALT [Catalytic activity/Vol] 19 U[facility] Anion gap [Moles/Vol] 8 mmol/L 3 - 13 mmol/L [facility] AST [Catalytic activity/Vol] 55 U/L [facility] U/L [facility] Comment on above: TC Potential interference from hemolysis Bilirubin [Mass/Vol] 1.1 mg/dL [facility] - [facility] mg/dL [facility] Calcium [Mass/Vol] 7.5 mg/dL Low 8.4 - 10. 2 mg/dL [facility] Chloride [Moles/Vol] 113 mmol/L High 98 - 10 7 mmol/L [facility] CO2 [Moles/Vol] 19 mmol/L Low 22 - 29 mmol/L [facility] Creatinine [Mass/Vol] 0.81 mg/dL 0.72 - 1.25 mg/dL [facility] GFR/1.73 sq M.predicted (S/P/Bld) [Vol rate/Area] - PINF [facility] Comment on above: Calculation based on the Chronic Kidney Disease Epidemiology Collaboration (CKD-EPI) equation refit without adjustment for race Glucose [Mass/Vol] 132 mg/dL High 74 - 100 mg/dL [facility] Potassium [Moles/Vol] 3.5 mmol/L 3.5 - 5.1 mmol/L [facility] Comment on above: Plasma potassium rena ues may be up to 0.5 mmol/L lower than serum values. Protein [Mass/Vol] 4.7 g/dL Low 6.4 - 8.3 g/dL [facility] [place] [facility] [employer] Sodium [Moles/Vol] 140 mmol/L 136 - 145 mmol/L [facility] [place] [facility] Urea nitrogen [Mass/Vol] 15 mg/dL 9 - 23 mg/d L [facility] [employer] Consulton 04-28-2025 Consult Attestation signed by Ignacio Harris at 04/28/2025 4:28 PM I discussed management with the Nurse Practitioner (DENTAL TECHNOLOGIST). I reviewed the DENTAL TECHNOLOGIST's note and agree with the documented findings and plan of care. Thank you so much for the consult. Should you have any questions please don?t hesitate to contact us. Department of Internal Medicine Division of Endocrinology, Diabetes, & Metabolism Endocrinology Note Patient Name: Bright Keen : 1970 AGE: 55 y.o. [facility]: [facility] Admission Date: 04/28/2025 Visit Date: 04/28/2025 Reason for Endocrine Consult: post heart Provider/Team Requesting Consult: CTS PCP: Asher Jesus PA-C Outpt Geodetic Surveyor: No ASSESSMENT: Stress hyperglycemia AVR HLD/HTN Obesity Body mass index is 37.31 kg/m?. PLAN: Continue on insulin gtt ICU goal <180 GMF goal <150 POCT BG ACHS Hypoglycemia management per protocol Carb controlled diet ANTICIPATED ENDOCRINE HOME GOING RECOMMENDATIONS: Optimized for Discharge from Endocrine standpoint: No Home Going Endocrine Rx Recommendations-- NONE Outpt Follow Up-- PCP SUBJECTIVE/HPI: CHIEF COMPLAINT: No chief complaint on file. S/p AVR BGL below- stable Insulin gtt on Pressors as needed VSS NPO Currently intubated/sedated-wi ll clarify hx once extubated, does not appear to have DM per chart review Spoke with team No family present Type of DM: NA Onset of DM: NA Home DM Medication Regimen: NA DM control (last A1c/glucose data): Lab Results Component Value Date HGBA1C 5.4 04/21/2025 Glucose Date/Time Value Ref Range Status 04/28/2025 01:13 PM 97 70 - 100 mg/dL Final Review of Systems ROS negative except for those mentioned in HPI. OBJECTIVE: Vitals: 04/28/25 0545 04/28/25 1256 04/28/25 1315 BP: (!) 164/105 Pulse: 76 69 Resp: 19 Temp: 36.1 ?C (97 ?F) (!) 35.9 ?C (96.6 ?F) TempSrc: Tympanic Tympanic SpO2: 100% 100% Weight: 260 lb (118 kg) Height: 5' 10 (1.778 m) Physical Exam Vitals and nursing note reviewed. Constitutional: General: He is sleeping. He is not in acute distress. Appearance: He is ill-appearing. He is not toxic-appearing. Interventions: He is sedated and intubated. HENT: Head: Normocephalic. Mouth/Throat: Mouth: Mucous membranes are moist. Cardiovascular: Rate and Rhythm: Normal rate. Pulmonary: Effort: Pulmonary effort is normal. No respiratory distress. He is intubated. Abdominal: Tenderness: There is no guarding. Skin: General: Skin is warm and dry. Coloration: Skin is pale. Comments: Intact incision 24 hour intake/output: Intake/Output Summary (Last 24 hours) at 04/28/2025 1334 Last data filed at 04/28/2025 1321 Gross per 24 hour Intake 4342 ml Output 1225 ml Net 3117 ml Diet: NPO diet Medications (as per EMR): HomeMeds: Current Outpatient Medications Medication Instructions aspirin 81 mg, Oral, Daily atorvastatin (LIPITOR) 40 mg, Oral, Daily chlorhexidine (Peridex) 0.12 % solution 15 mL, Once mupirocin (Bactroban) 2 % ointment Apply liberal amount per nostril the night before surgery and then again the morning of surgery Scheduled Meds:Scheduled Meds[1] Continuous Infusions:Continuous Meds[2] PRN Meds:PRN Meds[3] Diagnostic Workup: I reviewed pertinent Laboratory results, Radiographic results, and Other Clinical Notes at the time of today's encounter. Labs: No components found for: LABA1C No components found for: EAG No results found for: NA, K, CL, CO2, BUN, CREATININE, GLUCOSE, CALCIUM Lab Results Component Value Date CHOL 177 03/05/2025 Lab Results Component Value Date TRIG 44 03/05/2025 Lab Results Component Value Date HDL 35 (L) 03/05/2025 Lab Results Component Value Date LDLCALC 133 (H) 03/05/2025 No results found for: VLDL Lab Results Component Value Date CHOLHDLRATIO 5 03/05/2025 No results found for: [id number] No results found for: TSH, [id number], P6JVYFL, THYROIDAB Radiology reportsas per the Radiologist Radiology: ECG 12 lead Result Date: 04/28/2025 Sinus rhythm Anterior infarct, old Prolonged QT interval POCT glucose meter Result Date: 04/28/2025 Performed by: [facility], [address] [place] [address] CLIA ID: [id number] History/Other: Past Medical History: Medical History[4] Past Surgical History: Surgical History[5] Allergy(ies): Allergies[6] Family History: Family History[7] Social History: Social History[8] Portions of the information within this encounter were entered using an electronic dictation system. Best attempts were made to edit/proofread the information prior to note completion. Despite the review of information, some errors may remain. If there are questions r (more content not included)... Normal [facility] Consult Attestation signed by Jadiel Wellington DO at 04/28/2025 2:07 PM I reviewed the AAP's note and agree with the documented findings and plan of care. Patient s/p AVR w/ PFO repair OR course uncomplicated Neuro: - Continue sedation for now, PRNs once extubated - had a TIA earlier this year, no residual defects noted on exam per chart review Cardio/hemodynamic - Pacer in place, [place] rate in the upper 60s, not being paced - CVP 6 - no vasoactives, cap refill is brisk Pulm/respiratory - Vent settings 14 450 100% +8 - Chest XR with NAD - Chest tubes in place GI - NPO pending extubation, Diet as tolerated once extubated - PPI /Renal - Matias in place - Electrolytes WNL ID - surgical ppx abx - no leukocytosis, no fever Endo - insulin infusion off - A1c 5.4 Heme - Cellsaver given, no transfusion needs - AVR,will need AC - SCDs Critical care time [address] [facility] Group: Critical Care Consultation Note Date: 04/28/25 PATIENT NAME: Bright Keen : 1970 (55 y.o.) Reason for Consult: Critical Care & Vent Management HPI: 55 y.o. male w pmHx of severe , CHF, HTN and recent ischemic stroke was seen in OP valve clinic for surgical evaluation. Of note patient was admitted to [facility] on 03/04/25 for stroke like symptoms, with MRI revealing four tiny acute embolic infarcts in the right frontal and occipital lobes, and left parietal lobe. Pt was treated with TNK and had drastic improvement in symptoms. During further workup, a transthoracic echo was obtained, which demonstrated EF 55%, LA and RA moderately dilated, and severe aortic valve stenosis concerning for potential etiology of cryptogenic stroke, peak/mean gradients 84/53 mm Hg, LIOT 1.0 cm^2. He consent and was taken to the operating room for AVR and PFO repair with Dr. Ulloa on 04/28/25 Surgery: 04/28/25: s/p AVR (#25 [facility]) PFO repair and KATY with Dr. Ulloa Interval History: 04/28/25: POD #0: Patient arrived to the unit, intubated and sedated. Surgical hand off completed below. Surgery Hand Off: Arrival Time in CTVICU: 1300 Complications/Pertin ent Events: none noted Last Paralytic:1204 Medications given in route: none noted Gtts OR report Epinephrine: 0.04 Insulin: 2 Amicar: 29 Current gtts upon arrival Propofol: 20 Insulin: Amicar: 29 Devices: Epicardial wires: yes [x] no [] Blood Transfusions Intra Op: yes [x] no [] CellSaver: yes Additional Interventions/Misc during Handoff None noted Review of Systems Unable to perform ROS: Intubated Allergies: Hydrocodone Past Medical History: has a past medical history of Heart valve disorder, Hyperlipidemia, Hypertension, and Stroke (HCC). Past Surgical History: has a past surgical history that includes Cardiac catheterization (N/A, 04/06/2025) and arm fracture surgery (historical) (Bilateral). Social History: reports that he has never smoked. He has never used smokeless tobacco. He reports that he does not currently use alcohol. He reports that he does not currently use drugs. Family History: family history is not on file. Medications: Prior to Admission medications Medication Sig Start Date End Date Taking? Authorizing Provider aspirin 81 MG chewable tablet Chew 1 tablet (81 mg) daily. Do not start before March 07, 2025. 03/07/25 03/07/26 Yes Chad Holcomb MD atorvastatin (Lipitor) 40 MG tablet Take 1 tablet (40 mg) by mouth daily. Do not start before March 07, 2025. 03/07/25 03/07/26 Yes Chad Holcomb MD chlorhexidine (Peridex) 0.12 % solution Use 15 mL in the mouth or throat 1 time. Yes Historical Provider, mupirocin (Bactroban) 2 % ointment Apply liberal amount per nostril the night before surgery and then again the morning of surgery Patient taking differently: Apply liberal amount per nostril the night before surgery and then again the morning of surgery Pre op medication 04/16/25 Yes Jacek Alvarado APRN - [employer]END[employer] Objective: BP (!) 164/105 Pulse 69 Temp (!) 35.9 ?C (96.6 ?F) (Tympanic) Resp 19 Ht 5' 10 (1.778 m) Wt 260 lb (118 kg) SpO2 100% BMI 37.31 kg/m? Intake/Output Summary (Last 24 hours) at 04/28/2025 1337 Last data filed at 04/28/2025 1321 Gross per 24 hour Intake 4342 ml Output 1225 ml Net 3117 ml Physical Exam Constitutional: Interventions: He is sedated and intubated. HENT: Mouth/Throat: Comments: ETT in place Neck: Vascular: No JVD. Trachea: Trachea normal. Cardiovascular: Rate and Rhythm: Normal rate and regular rhythm. Pulses: Radial pulses are 2+ on the right side and 2+ on the left side. Heart sounds: Normal heart sounds, S1 normal and S2 normal. Comments: Mech valve heard Pulmonary: Effort: He is intubated. Breath sounds: Decreased breath sounds present (more content not included)... Normal [facility] ECG 12-LEADon 04-28-2025 ECG 12-LEAD IMPRESSION: Sinus rhythm Anterior infarct, old Prolonged QT interval Electronically Signed On 04-28-2025 17:57:04 EDT by Naida Bee Normal [facility] FIBRINOGENon 04-28-2025 FIBRINOGEN 160 mg/dL Low 200-400 [facility] Comment on above: Performed By: #### L [id number], [id number] ####Groover Operator: STEFANIE WARD ([phone])[address] Fibrinogen Coag (PPP) [Mass/ Vol]Ordered By: Jessa Monreal on 04-28-2025 Interpretation and review of laboratory results Abnormal [facility] - Chemistry and C hemistry - challengeon 04-28-2025 Glucose [Mass/Vol] 136 mg/dL High 70 - 100 mg/dL [facility] Glucose [Mass/Vol] 128 mg/dL High 70 - 100 mg/dL [facility] Glucose [Mass/Vol] 115 mg/dL High 70 - 100 mg/dL [facility] Glucose [Mass/Vol] 129 mg/dL High 70 - 100 mg/dL [facility] Glucose [Mass/Vol] 124 mg/dL High 70 - 100 mg/dL [facility] Glucose [Mass/Vol] 132 mg/dL High 70 - 100 mg/dL [facility] Glucose [Mass/Vol] 111 mg/dL High 70 - 100 mg/dL [facility] Glucose [Mass/Vol] 105 mg/dL High 70 - 100 mg/dL [facility] Glucose [Mass/Vol] 147 mg/dL High 70 - 100 mg/dL [facility] Magnesium [Mass/Vol] 3.5 mg/dL High 1.6 - 2 .6 mg/dL [facility] Glucose [Mass/Vol] 90 mg/dL 70 - 100 mg/dL [facility] Base excess Calc (BldV) [Moles/Vol] -7.2000 mmol/L Low -3.0 - 3.0 mmol/L [facility] CO2 (BldV) [Partial pressure] 41.3 mm[Hg] [facility] CO2 [Moles/Vol] 20.3 mmol/L Low 24.0 - 28.0 mmol/L [facility] HCO3 (Bld) [Moles/Vol] 19.1 mmol/L Low 23.0 - 27.0 mmol/L [facility] Oxygen (BldV) [Partial pressure] 49.9 mm[Hg] mm Hg [facility] [facility] pH (BldV) 7.282 [pH] Low 7.330 - 7.430 [facility] Glucose [Mass/Vol] 97 mg/dL 70 - 100 mg/dL [facility] Laboratory - Chemistry and C hemistry - challengeOrdered By: Delmi Garcia on 04-28-2025 Base excess Calc (Bld) [Moles/Vol] -5.2000 mmol/L Low -3.0 - 3.0 mmol/L [facility] CO2 (Bld) [Partial pressure] 39.3 mm[Hg] - PINF [facility] CO2 [Moles/Vol] 21.5 mmol/L Low 23.0 - 27.0 mmol/L [facility] HCO3 (Bld) [Moles/Vol] 20.3 mmol/L Low 21.0 - 25.0 mmol/L [facility] Oxygen (Bld) [Partial pressure] 163.7 mm[Hg] High [facility] pH (Bld) 7.33 [pH] Low 7.350 - 7.450 [facility] Laboratory - CoagulationOrde red By: Jessa Rah on 04-28-2025 Fibrinogen Coag (PPP) [Mass/Vol] 160 mg/dL Low 200 - 400 mg/dL [facility] - Coagulationon 0 04-28-2025 aPTT Coag (PPP) [Time] 32.2 s High 20.0 - 30.5 s [facility] INR Coag (PPP) [Relative time] 1.2 {INR} High 0.9 - 1.1 [facility] Comment on above: Recommended Anticoag ulant Therapy: SEE BELOW ----- INR of 2.0 - 3.0 : - Prophylaxis of Venous Thrombosis (high-risk surgery) - Treatment of Venous Thrombosis - Treatment of Pulmonary Embolism (Includes tissue heart valves, Acute Myocardial Infarction to prevent systemic embolism, Valvular Heart Disease, and Atrial Fibrillation) ----- INR of 2.5 - 3.5 : - Mechanical Prosthetic Valves (high risk) - If oral anticoagulant therapy is used to prevent Myocardial Infarction PT Coag (Bld) [Time] 12.7 s High 9.0 - 12.0 s [facility] Laboratory - Hematology and Cell countsOrdered By: Delmi Garcia on 04-28-2025 Hemoglobin (Bld) [Mass/Vol] 13.9 g/dL 7.0 g/dl [facility] - Hematology and Cell countson 04-28-2025 Hemoglobin (Bld) [Mass/Vol] 13 g/dL 7.0 g/dl [facility] MAGNESIUMon 04-28-2025 Magnesium [Mass/Vol] 3.5 mg/dL High 1.6-2.6 [facility] Comment on above: Result Comment: KIKO Solorio COMMENTS: Higher values can be expected in females during menses. Performed By: #### L [id number], [id number] ####Groover Operator: STEFANIE WARD ([phone])[facility] ([facility])[address] [place] [address] Magnesium [Mass/Vol]on 04-28 Higher values can be expected in females during menses. [facility] No Panel Informationon 04-28 Interpretation and review of laboratory results Abnormal [facility] Performed by: [place] [address] CLIA ID: [id number] [facility] Interpretation and review of laboratory results Abnormal [facility] Performed by: [facility], [address] [place] [address], [place] [address] CLIA ID: [id number] [facility] Interpretation and review of laboratory results Abnormal [facility] Performed by: [facility], [address] [place] [address], [place] [address] CLIA ID: [id number] [facility] Interpretation and review of laboratory results Abnormal [facility] Performed by: [facility], [address] [place] [address], [place] [address] CLIA ID: [id number] [facility] Interpretation and review of laboratory results Abnormal [facility] Performed by: [facility], [address] [place] [address], [place] [address] CLIA ID: [id number] [facility] Interpretation and review of laboratory results Abnormal [facility] Performed by: [facility], [address] [place] [address], [place] [address] CLIA ID: [id number] [facility] Sinus rhythm Anterior infarct, old Prolonged QT interval Electronically Signed On 04-28-2025 17:57:04 EDT by Naida Bee CV Naida Antunez MD - 04/28/2025 IMPRESSION: Sinus rhythm Anterior infarct, old Prolonged QT interval Electronically Signed On 04-28-2025 17:57:04 EDT by Naida Bee [facility] Interpretation and review of laboratory results Abnormal [facility] Performed by: [facility], [address] [place] [address], [place] [address] CLIA ID: [id number] [facility] Interpretation and review of laboratory results Abnormal [facility] Performed by: [address], [place] [address] CLIA ID: [id number] [facility] Interpretation and review of laboratory results Abnormal [facility] Performed by: [facility], [address] [place] [address], [place] [address] CLIA ID: [id number] [facility] Interpretation and review of laboratory results Abnormal [facility] Interpretation and review of laboratory results Normal [facility] Performed by: [facility], [address] [place] [address] CLIA ID: [id number] [facility] Interpretation and review of laboratory results Abnormal [facility] Amount Of Oxygen [facility] alth Interpretation and review of laboratory results Abnormal [facility] Source Of Oxygen Ventilator [facility] alth Assessment of oxygenation is best done with an arterial blood gas determination. Reference ranges for pO2, bicarbonate, and base excess are for mixed venous blood. Specimens drawn from a peripheral vein will often have higher values. [facility] Interpretation and review of laboratory results Normal [facility] Performed by: [facility], [address] [place] [address] CLIA ID: [id number] [facility] [employer] No Panel InformationOrdered By: Naida Bee on 04-28-2025 P [place] 53 degrees [facility] [employer] Work Phone: [phone] SC Interval 196 ms [facility] Work Phone: [phone] QRS [place] -26 degrees [facility] [employer] Work Phone: [phone] QRSD Interval 95 ms [facility] [employer] Work Phone: [phone] QT Interval 458 ms [facility] [employer] Work Phone: [phone] QTC Interval 501 ms [facility] [employer] Work Phone: [phone] T Wave [place] 76 degrees [facility] [employer] Work Phone: [phone] [facility] Work Phone: [phone] No Panel InformationOrdered By: Delmi Garcia on 04-28-2025 Amount Of Oxygen 60 [facility] alth Interpretation and review of laboratory results Abnormal [facility] Source Of Oxygen Ventilator [facility] alth [facility] Op Noteon 04-28-2025 Op Note Cardiothoracic Surgery Operative Report Date: 04/28/25 Pre-operative Diagnosis: Severe aortic stenosis Chronic diastolic congestive heart failure--class III Patent foramen ovale Post-operative Diagnosis: Severe aortic stenosis Chronic diastolic congestive heart failure--class III Patent foramen ovale Procedure: Median sternotomy Total cardiopulmonary bypass Aortic valve replacement with 25 mm SJM [place] mechanical valve (serial # [id number]) Closure of patent foramen ovale Intraoperative transesophageal echocardiogram Surgeon: Emily Ulloa DO Investigation Division Lieutenant(s): [x] Duane Call [] Enrique Prado [] Jeff Donovan [] Jeff Alvarado [] Other Anesthesia: General--Dr. Jacob Groves Thermal Spray Operator: Jessica Ross Total IV fluids: See anesthesia and perfusion record Blood Transfusion?: None Drains/wires: Chest tube x 1; ventricular pacing wires Complications: None INDICATIONS FOR SURGERY: This is a 55 y.o. year-old male who was found to have severe aortic stenosis after presenting for an acute ischemic stroke. He underwent complete workup through the structural heart clinic. Surgical consultation was obtained the the above procedure was offered. The risks, benefits, and alternatives were explained in detail and consent was obtained for the procedure. Findings: Preoperative KATY showed severe aortic stenosis and a patent foramen ovale. I discussed this finding with cardiology and another surgeon, both of whom agreed that repair was indicated. 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 It was replaced with a 25 mm prosthesis which was well-seated and functioned properly. The PFO was about 5 mm in diameter at the top of the fossa ovalis. It was closed primarily. The patient was weaned from cardiopulmonary bypass with minimal inotropic support needed. Myocardial function is preserved on KATY. The valve is well-functioning with no paravalvular leak. The PFO has no flow across it. We spent considerable time de-airing the heart while coming off bypass.Cardiopulmona ry bypass time 155 minutes. Aortic cross-clamp time 121 minutes. DESCRIPTION OF PROCEDURE: The patient was brought to the operative suite and placed in supine position on the operative table. General anesthesia was administered. All appropriate lines and tubes were placed. The torso and lower extremities were then prepped and draped in the usual sterile fashion. The office assistant receptionist was present for the entire procedure from start to finish and helped with all portions of it. A standard median sternotomy incision was made. The sternum was divided in the midline and hemostasis was achieved. A standard retractor was then placed. The thymus was divided in the midline and the pericardium was opened. I dissected circumferentially around the superior and inferior vena cavae. Full dose heparin was then given. I then cannulated for bypass. A double pursestring suture was placed into the ascending aorta. An 8 mm arterial cannula was placed through this and secured. Another pursestring was placed in the superior vena cava. A right angle venous cannula was placed through this and secured. Another pursestring was placed in the lower right atrium. An inferior vena cava cannula was placed through this and secured. Another pursestring was placed in the right atrium. A retrograde cardioplegia cannula was placed through this into the coronary sinus and secured. An antegrade cardioplegia cannula was placed into the ascending aorta. We then went on total cardiopulmonary bypass. There was excellent decompression of all 4 cardiac chambers. The aortic root was dissected enough to provide exposure. An aortic cross-clamp was then placed. Cold blood antegrade followed by retrograde cardioplegia was administered with excellent diastolic arrest of the heart. Cardioplegia was readministered periodically throughout the procedure as indicated. A pledgeted stitch was placed in the right upper pulmonary vein and a left ventricular vent was passed through this across the mitral valve into the left ventricle. An oblique aortotomy was then made just above the sinotubular junction. Both coronary ostia were very high riding nearly at the level of the sinotubular junction. The valve was examined and found to be bicuspid with fusion between the right and non coronary cusps. The valve was excised sharply around the annulus which was very calcified. The annulus was debrided of all of its calcium. I then sized the valve annulus to fit a 25 mm prosthesis. Non-pledgeted 2-0 Ethibond stitches were placed in a mattress fashion in a subannular position circumferentially around the annulus. The stitches were then each passed through the sewing ring of the valve. The valve was lowered into position and appeared to be well-seated. The valve was secured in place using CorKnots. The leaflets were well-functioning once it was in place. The patient was rewarmed. The (more content not included)... Normal [facility] PROTIME AND APTTon 5 aPTT Coag (Bld) [Time] 32.2 s High 20.0-30.5 [facility] Comment on above: Performed By: #### L [id number], [id number] ####Groover Operator: STEFANIE WARD ([phone])[facility] ([facility])[address] [place] [address] INR Coag (PPP) [Relative time] 1.2 {INR} High 0.9-1.1 [facility] [employer] [facility] Comment on above: Result Comment: Nabeel mmended Anticoagulant Therapy: SEE BELOW ----- INR of 2.0 - 3.0 : - Prophylaxis of Venous Thrombosis (high-risk surgery) - Treatment of Venous Thrombosis - Treatment of Pulmonary Embolism (Includes tissue heart valves, Acute Myocardial Infarction to prevent systemic embolism, Valvular Heart Disease, and Atrial Fibrillation) ----- INR of 2.5 - 3.5 : - Mechanical Prosthetic Valves (high risk) - If oral anticoagulant therapy is used to prevent Myocardial Infarction Performed By: #### L [id number], [id number] ####Groover Operator: STEFANIE WARD ([phone])[facility] ([email or web address])[address] [place] [address] PT Coag (PPP) [Time] 12.7 s High 9.0-12.[address] [facility] [employer] [facility] Comment on above: Performed By: #### L [id number], [id number] ####Groover Operator: STEFANIE WARD ([phone])[facility] ([employer])[address] [place] [address] Vital signsOrdered By: Bryan Bee on 04-28-2025 Heart rate 72 /min bpm [facility] Work Phone: Vital signson 04-28-2025 Oxygen saturation in Venous blood 77.5 % [facility] XR CHEST 1 VIEWon 04-28-2025 XR CHEST 1 VIEW Patient Name: BRIGHT KEEN : 1970 [facility]#: [id number] Exam Date/Time: 04/28/2025 13:26 Procedure: XR CHEST 1 VIEW Ordering Provider: ALVARADO ANDREW Reason For Exam: Post op open heart surgery; ETT placement CHEST X-RAY ONE VIEW: CLINICAL INDICATION: Postoperative TECHNIQUE: AP COMPARISON: Chest x-ray 04/21/2025 FINDINGS: Lines, tubes, and devices: Interval placement of life support devices as below: Enteric tube with tip and side-port projecting over the stomach. Endotracheal tube terminates 2.9 cm above the sun. Right IJ central venous catheter terminates within the mid SVC. Mediastinal drain. Lungs: No new focal consolidation, vascular congestion, pleural effusion, or pneumothorax. Cardiomediastinal structures: New sternotomy wires. Stable cardiomegaly. Prosthetic aortic valve. Other: Degenerative changes within the shoulders and spine. IMPRESSION: Interval placement of life support devices as detailed above. No acute radiographic finding. Report Dictated on Electronically Signed By: Tonie Davidson DO Electronically Signed Date/Time: 04/28/2025 1:47 PM EDT [facility] XR Chest Single viewon 04-28 Interval placement of life support devices as detailed above. No acute radiographic finding. Report Dictated on Electronically Signed By: Tonie Davidson DO Electronically Signed Date/Time: 04/28/2025 1:47 PM EDT [facility] Patient Name: BRIGHT KEEN : 1970 Exam Date/Time: 04/28/2025 13:26 Procedure: XR CHEST 1 VIEW Ordering Provider: ALVARADO ANDREW Reason For Exam: Post op open heart surgery; ETT placement CHEST X-RAY ONE VIEW: CLINICAL INDICATION: Postoperative TECHNIQUE: AP COMPARISON: Chest x-ray 04/21/2025 FINDINGS: Lines, tubes, and devices: Interval placement of life support devices as below: Enteric tube with tip and side-port projecting over the stomach. Endotracheal tube terminates 2.9 cm above the sun. Right IJ central venous catheter terminates within the mid SVC. Mediastinal drain. Lungs: No new focal consolidation, vascular congestion, pleural effusion, or pneumothorax. Cardiomediastinal structures: New sternotomy wires. Stable cardiomegaly. Prosthetic aortic valve. Other: Degenerative changes within the shoulders and spine. [facility] Tonie Davidson DO - 04/28/2025 Patient Name: BRIGHT KEEN : 1970 Exam Date/Time: 04/28/2025 13:26 Procedure: XR CHEST 1 VIEW Ordering Provider: ALVARADO ANDREW Reason For Exam: Post op open heart surgery; ETT placement CHEST X-RAY ONE VIEW: CLINICAL INDICATION: Postoperative TECHNIQUE: AP COMPARISON: Chest x-ray 04/21/2025 FINDINGS: Lines, tubes, and devices: Interval placement of life support devices as below: Enteric tube with tip and side-port projecting over the stomach. Endotracheal tube terminates 2.9 cm above the sun. Right IJ central venous catheter terminates within the mid SVC. Mediastinal drain. Lungs: No new focal consolidation, vascular congestion, pleural effusion, or pneumothorax. Cardiomediastinal structures: New sternotomy wires. Stable cardiomegaly. Prosthetic aortic valve. Other: Degenerative changes within the shoulders and spine. IMPRESSION: Interval placement of life support devices as detailed above. No acute radiographic finding. Report Dictated on Electronically Signed By: Tonie Davidson DO Electronically Signed Date/Time: 04/28/2025 1:47 PM EDT [facility] Study observation (narrative) [employer] [facility] XR Chest Single viewOrdered By: Tonie Davidson on 04-28-2025 [facility] Work Phone: [phone] 04-21-2025 [id number] Medication List Accurate as of April 21, 2025 10:44 AM. Always use your most recent med list. aspirin 81 MG chewable tablet Chew 1 tablet (81 mg) daily. Do not start before March 07, 2025. Medication Adjustments for Surgery: Take morning of surgery atorvastatin 40 MG tablet Commonly known as: Lipitor Take 1 tablet (40 mg) by mouth daily. Do not start before March 07, 2025. Medication Adjustments for Surgery: Take morning of surgery mupirocin 2 % ointment Commonly known as: Bactroban Apply liberal amount per nostril the night before surgery and then again the morning of surgery Notes to patient: Use per direction pre op, use peridex mouthwash as directed as well Additional Instructions: You may take your prescription pain medication. You may take Tylenol for pain. NO Motrin, ibuprofen or Advil for 7 DAYS prior to surgery or longer if instructed by your surgeon. NO Aleve or Naprosyn for 7 DAYS prior to surgery or longer if instructed by your surgeon. IF YOU TAKE BLOOD THINNERS OR ASPIRIN: CONTINUE Follow any instructions given to you by Dr. ARTEMIO Shower with an antibacterial soap such as Dial or Safeguard or shower kit provided to you before coming to the hospital. No makeup, lotion, powder, deodorant or body spays. No hair products. Remove all jewelry and leave it at home. Wear loose comfortable clothing to go home in. You may brush your teeth morning of surgery. Do not wear contacts day of surgery. No marijuana (THC), smoking or alcohol for 24 hours prior to surgery. Please arrange for a responsible adult to drive you home after your surgery and that there is a responsible adult with you for 24 hours post discharge. If you have specific questions, please call your surgeon. You will receive a call the day before your surgery to verify your arrival time and date. You will be asked to arrive at least two hours prior to your scheduled surgery time. Please bring your [facility] Surgical folder and medication list with you day of surgery. We encourage you to write down any questions you may have for the surgeon, anesthesiologist, or other members of the surgical team and bring it with you the day of surgery. Please bring photo ID and insurance information. If you will be spending the night following surgery, please plan to have your ride available by 11 am on the day of discharge. TRANSLATOR/INTERPRETER ENTER BUILDING AT THE MAIN ENTRANCE. TAKE THE H ELEVATOR TO THE FIRST FLOOR, TURN LEFT OFF THE ELEVATOR AND GO TO THE SAME DAY SURGERY REGISTRATION DESK TO CHECK IN PARKING DECK You may park in the main garage for free day of surgery, and take the bridge on level one to enter the hospital. Sign into same day surgery on the right hand side. Normal [facility] BLOOD TYPE AND SCREEN GELon 04-21-2025 ABO GROUPING A Normal [facility] Comment on above: Performed By: #### L [id number] ####Groover Operator: STEFANIE WARD ([phone])[facility]LOOD B[facility] ([facility])[address] [place] [address] RH TYPE IN BLOOD Positive Normal [facility] Comment on above: Performed By: #### L [id number] ####Groover Operator: STEFANIE WARD ([phone])[facility]LOOD [facility] ([facility])[address] [place] [address] CBC (HEMOGRAM)on 04-21-2025 Erythrocyte distribution width (RBC) [Ratio] 13.2 % Normal 11.5-15.0 [facility] Comment on above: Performed By: #### L [id number] ####Groover Operator: STEFANIE WARD ([phone])[facility])[address] [place] [address] Hematocrit (Bld) [Volume fraction] 42.4 % Normal 40.0-52.0 [facility] Comment on above: Performed By: #### L [id number] ####Groover Operator: STEFANIE WARD ([phone])[facility])[address] [place] [address] Hemoglobin (Bld) [Mass/Vol] 14.3 g/dL Normal 13.0-18.0 [facility] Comment on above: Performed By: #### L [id number] ####Groover Operator: STEFANIE WARD ([phone])[facility])[address] [place] [address] MCH (RBC) [Entitic mass] 28.0 pg Normal 26.0-34.0 [facility] Comment on above: Performed By: #### L [id number] ####Groover Operator: STEFANIE WARD ([phone])[facility])[address] [place] [address] MCHC 33.7 % Normal 30.5-36.0 [facility] Comment on above: Performed By: #### L [id number] ####Groover Operator: STEFANIE WARD ([phone])[facility])[address] [place] [address] MCV (RBC) [Entitic vol] 83.0 fL Normal 77.0-99.0 [facility] Comment on above: Performed By: #### L [id number] ####Groover Operator: STEFANIE WARD ([phone])[facility])[address] [place] [address] Platelet mean volume (Bld) [Entitic vol] 11.2 fL Normal 9.0-12.7 [facility] Comment on above: Performed By: #### L [id number] ####Groover Operator: STEFANIE WARD ([phone])[facility] ([facility])[address] [place] [address] Platelets (Bld) [#/Vol] 207 10*3/uL Normal 140-440 [facility] Comment on above: Performed By: #### L [id number] ####Groover Operator: STEFANIE WARD ([phone])[facility] ([facility])[address] [place] [address] RBC (Bld) [#/Vol] 5.11 10*6/uL Normal 4.40-5.90 [facility] Comment on above: Performed By: #### L [id number] ####Groover Operator: STEFANIE WARD ([phone])[facility] ([facility])[address] [place] [address] WBC (Bld) [#/Vol] 6.1 10*3/uL Normal 3.6-10.7 [facility] Comment on above: Performed By: #### L [id number] ####Groover Operator: STEFANIE WARD ([phone])[facility] ([facility])[address] [place] [address] COMPLETE URINALYSIS WITH REF LEIGH TO CULTUREon 04-21-2025 BACTERIA (#/HPF) IN URINE Negative Normal Negative [facility] Comment on above: Performed By: #### L [id number] ####Groover Operator: STEFANIE WARD ([phone])[facility] ([facility])[address] [place] [address] BILIRUBIN, TOTAL PRESENCE IN URINE Negative Normal Negative [facility] Comment on above: Performed By: #### L [id number] ####Groover Operator: STEFANIE WARD ([phone])[facility])[address] [place] [address] Clarity (U) Clear Normal Clear [facility] Comment on above: Performed By: #### L [id number] ####Groover Operator: STEFANIE WARD ([phone])[facility] ([facility])[address] [place] [address] Color (U) Yellow Normal Lt. Yellow [facility] Comment on above: Performed By: #### L [id number] ####Groover Operator: STEFANIE WARD ([phone])[facility] ([facility])[address] [place] [address] GLUCOSE (MG/DL) IN URINE Normal Normal Normal (<70 ) [facility] Comment on above: Performed By: #### L [id number] ####Groover Operator: STEFANIE WARD ([phone])[facility] ([facility] [place] [address] HEMOGLOBIN PRESENCE IN URINE Negative Normal Negative [facility] Comment on above: Performed By: #### L [id number] ####Groover Operator: STEFANIE WARD ([phone])[facility] ([facility])[address] [place] [address] Ketones Ql (U) Negative Normal Negative [facility] Comment on above: Performed By: #### L [id number] ####Groover Operator: STEFANIE WARD ([phone])[facility] ([facility])[address] [place] [address] LEUKOCYTE ESTERASE PRESENCE IN URINE BY TEST STRIP Negative Normal Negative [facility] Comment on above: Performed By: #### L [id number] ####Groover Operator: STEFANIE WARD ([id number])[facility] ([facility])[address] [place] [address] [place] MUCUS (#/LPF) IN URINE SEDIMENT Few Normal Negative [facility] Comment on above: Performed By: #### L [id number] ####Groover Operator: STEFANIE WARD ([id number])[facility] ([facility])[address] [place] [address] [place] NITRITE PRESENCE IN URINE Negative Normal Negative [facility] Comment on above: Performed By: #### L [id number] ####Groover Operator: STEFANIE WARD ([id number])[facility] ([facility])[address] [place] [address] [place] pH (U) 6.0 [pH] Normal 5.0-8.0 [facility] Comment on above: Performed By: #### L [id number] ####Groover Operator: STEFANIE WARD ([phone])[facility])[address] [place] [address] Protein (U) [Mass/Vol] 10 mg/dL Abnormal Negative [facility] Comment on above: Performed By: #### L [id number] ####Groover Operator: STEFANIE WARD ([phone])[facility])[address] [place] [address] RBC (#/HPF) IN URINE SEDIMENT 0-2 Normal 0-2 [facility] Comment on above: Performed By: #### L [id number] ####Groover Operator: STEFANIE WARD ([phone])[facility])[address] [place] [address] Specific gravity (U) [Rel density] 1.030 Normal 1.005-1.030 [facility] Comment on above: Result Comment: KIKO R COMMENTS: A specimen with <=10 WBC is not consistent with inflammation. This specimen will not reflex to a urine culture. Performed By: #### L [id number] ####Groover Operator: STEFANIE WARD ([phone])[facility] ([facility])[address] [place] [address] SQUAMOUS EPITHELIAL CELLS (#/HPF) IN URINE SEDIMENT 0-2 Normal 3-5 [facility] Comment on above: Performed By: #### L [id number] ####Groover Operator: STEFANIE WARD ([phone])[facility])[address] [place] [address] UROBILINOGEN (MG/DL) IN URINE 2 mg/dL Abnormal Normal (0-1) [facility] Comment on above: Performed By: #### L [id number] ####Groover Operator: STEFANIE WARD ([phone])[facility] ([facility])[address] [place] [address] WBC (LEUKOCYTE) (#/HPF) IN URINE SEDIMENT 0-2 Normal 0-5 [facility] Comment on above: Performed By: #### L [id number] ####Groover Operator: STEFANIE WARD ([phone])[facility])[address] [place] [address] COMPREHENSIVE METABOLIC PANE Navneet 04-21-2025 Albumin [Mass/Vol] 4.0 g/dL Normal 3.5-5.0 [facility] Comment on above: Performed By: #### L [id number] ####Groover Operator: STEFANIE WARD ([phone])[facility] ([facility])[address] [place] [address] ALP [Catalytic activity/Vol] 59 U/L Normal 40-150 [facility] Comment on above: Performed By: #### L [id number] ####Groover Operator: STEFANIE WARD ([phone])[facility])[address] [place] [address] ALT [Catalytic activity/Vol] 35 U/L Normal <40 [facility] Comment on above: Performed By: #### L [id number] ####Groover Operator: STEFANIE WARD ([phone])[facility])[address] [place] [address] Anion gap [Moles/Vol] 8 mmol/L Normal 3-13 [facility] Comment on above: Performed By: #### L [id number] ####Groover Operator: STEFANIE WARD ([phone])[facility])[address] [place] [address] AST [Catalytic activity/Vol] 35 U/L High <34 [facility] Comment on above: Performed By: #### L [id number] ####Groover Operator: STEFANIE WARD ([phone])[facility])[address] [place] [address] Bilirubin [Mass/Vol] 1.1 mg/dL Normal <1.2 [facility] Comment on above: Performed By: #### L [id number] ####Groover Operator: STEFANIE WARD ([phone])[facility] ([facility])[address] [place] [address] Calcium [Mass/Vol] 9.0 mg/dL Normal 8.4-10.2 [facility] Comment on above: Performed By: #### L [id number] ####Groover Operator: STEFANIE WARD ([phone])[facility] ([facility])[address] [place] [address] [place] Chloride [Moles/Vol] 110 mmol/L High 98-107 [facility] Comment on above: Performed By: #### L [id number] ####Groover Operator: STEFANIE WARD ([phone])[facility] ([facility])[address] [place] [address] CO2 [Moles/Vol] 22 mmol/L Normal 22-29 [facility] Comment on above: Performed By: #### L [id number] ####Groover Operator: STEFANIE WARD ([phone])[facility] ([facility])[address] [place] [address] Creatinine [Mass/Vol] 0.81 mg/dL Normal 0.72-1.25 [facility] Comment on above: Performed By: #### L [id number] ####Groover Operator: STEFANIE WARD ([phone])[facility] ([facility])[address] [place] [address] GLOMERULAR FILTRATION RATE ML/MIN/1.73 SQ M.PREDICTED >90.0 Normal >60.0 [facility] Comment on above: Result Comment: Calc ulation based on the Chronic Kidney Disease Epidemiology Collaboration (CKD-EPI) equation refit without adjustment for race Performed By: #### L [id number] ####Groover Operator: STEFANIE WARD ([phone])[facility] ([facility])[address] [place] [address] Glucose [Mass/Vol] 93 mg/dL Normal 74-100 [facility] Comment on above: Performed By: #### L [id number] ####Groover Operator: STEFANIE WARD ([phone])[facility] ([facility])[address] [place] [address] Potassium [Moles/Vol] 4.1 mmol/L Normal 3.5-5.1 [facility] Comment on above: Result Comment: [facility] potassium values may be up to 0.5 mmol/L lower than serum values. Performed By: #### L [id number] ####Groover Operator: STEFANIE WARD ([phone])[facility])[address] [place] [address] Protein [Mass/Vol] 7.1 g/dL Normal 6.4-8.3 [facility] Comment on above: Performed By: #### L [id number] ####Groover Operator: STEFANIE WARD ([phone])[facility])[address] [place] [address] Sodium [Moles/Vol] 140 mmol/L Normal 136-145 [facility] Comment on above: Performed By: #### L [id number] ####Groover Operator: STEFANIE WARD ([phone])[facility])[address] [place] [address] Urea nitrogen [Mass/Vol] 18 mg/dL Normal 9-23 [facility] Comment on above: Performed By: #### L [id number] ####Groover Operator: STEFANIE WARD ([id number])[address] ECG 12-LEADon 04-21-2025 ECG 12-LEAD IMPRESSION: Sinus rhythm Compared to ECG 03/04/2025 11:01:27 no change Electronically Signed On 04-21-2025 12:41:13 EDT by Tyrel Camejo [facility] HEMOGLOBIN A1Con 04-21-2025 Glucose [Mass/Vol] 108 mg/dL Normal [facility] Comment on above: Result Comment: KIKO Solorio COMMENTS: HbA1c values of 5.7-6.4 percent indicate an increased risk for developing diabetes mellitus. HbA1c values greater than or equal to 6.5 percent are diagnostic of diabetes mellitus. For diagnosis of diabetes in individuals without unequivocal hyperglycemia, results should be confirmed by repeat testing. Performed By: #### L [id number] ####Groover Operator: STEFANIE WARD ([phone])[facility])[address] [place] [address] HEMOGLOBIN A1C 5.4 %HbA1C Normal <5.7 [facility] Comment on above: Result Comment: Norm al less than 5.7% Prediabetes 5.7% to 6.4% Diabetes 6.5% or higher --HgbA1C levels may not be accurate in patients who have renal disease, received recent blood transfusions, are anemic, or who have dyshemoglobinemia. Performed By: #### L [id number] ####Groover Operator: STEFANIE WARD ([phone])[address] MRSA BY PCRon 04-21-2025 MRSA BY PCR STAPHYLOCOCCUS AUREUS Reference Not Detected Not Detected MECA GENE Reference Not Detected Not Detected ORDER COMMENTS: No Staphylococcus aureus detected. Negative nasal MRSA PCR has a high negative predictive value for MRSA pneumonia. Consider stopping Vancomycin if no other clinical indication. Contact Antimicrobial Stewardship for further recommendations. Staphylococcus aureus nasal screen by real-time PCR. This test was modified and its performance characteristics determined by [facility]. The [place]. S. Food and Drug Administration has not approved or cleared this test; however, FDA clearance or approval is not currently required for clinical use. The results are not intended to be used as the sole means for clinical diagnosis or patient management decisions. Normal [facility] Comment on above: Performed By: #### L [id number] ####Groover Operator: STEFANIE WARD ([phone])[address] PROTIME AND APTTon aPTT Coag (Bld) [Time] 29.3 s Normal 20.0-30.5 [facility] Comment on above: Performed By: #### L [id number] ####Groover Operator: STEFANIE WARD ([phone])[facility])[address] [place] [address] INR Coag (PPP) [Relative time] 0.9 {INR} Normal 0.9-1.1 [facility] Comment on above: Result Comment: Nabeel mmended Anticoagulant Therapy: SEE BELOW ----- INR of 2.0 - 3.0 : - Prophylaxis of Venous Thrombosis (high-risk surgery) - Treatment of Venous Thrombosis - Treatment of Pulmonary Embolism (Includes tissue heart valves, Acute Myocardial Infarction to prevent systemic embolism, Valvular Heart Disease, and Atrial Fibrillation) ----- INR of 2.5 - 3.5 : - Mechanical Prosthetic Valves (high risk) - If oral anticoagulant therapy is used to prevent Myocardial Infarction Performed By: #### L [id number] ####Groover Operator: STEFANIE WARD ([phone])[address] PT Coag (PPP) [Time] 10.1 s Normal 9.0-12.0 [facility] Comment on above: Performed By: #### L [id number] ####Groover Operator: STEFANIE WARD ([phone])[address] Progress Noteon 04-21-2025 Progress Note [facility] Bright Osmani : 1970 Primary Care Physician: Asher Jesus PA-C The patient and/or family/surrogate voluntarily agreed to participate in ACP services. Patient?s cognitive capacity: A&O x3 Code Status: [x] [FULL CODE - Continue all advanced life support: CPR,intubation,invas wilmar procedures] [_] [DNR-CCA - DO NOT do CPR, intubation] [_] [DNR-RAIL CAR MAINTENANCE MECHANIC - Comfort care only] [_] DNR form [was/was not] signed Summary of discussion: The patient health care POA/ surrogate is the following: None. [Condition that instigated the ACP on this DOS, relevant PMH, functional status, goals of care, and whom this was discussed with including names and relationship to the patient, and any relevant advance care documentation discussion] I answered all the patient/family questions that I could within the range and scope of the current medical situation. We discussed the medical conditions, risks, benefits, outcomes, and goals of care at this time for the patient's medical issues at hand in the face of the patient's chronic issues and current presentation. Total time spent: 2 minutes were spent discussing the patient's resuscitation status, advance care planning, and end of life care, with patient and/or family/surrogate. Nell Carlos APRN - [facility] Acute care solutions 04/21/2025, 2:09 PM Normal [facility] XR CHEST 2 VIEWSon XR CHEST 2 VIEWS [facility] : 1970 [id number] Exam Date/Time: 04/21/2025 12:13 Procedure: XR CHEST 2 VIEWS Ordering Provider: CARLOS NICOLE Reason For Exam: PREOPERATIVE ANESTHESIA CHEST X-RAY PA/LATERAL CLINICAL INDICATION: PREOPERATIVE ANESTHESIA Frontal and lateral plain films of the chest were obtained. COMPARISON: None FINDINGS: The cardiac silhouette is within normal limits. No focal consolidation is seen within the lungs. No pleural effusion or pneumothorax is identified. The bony structures of the chest are unremarkable as visualized for the patient's age. IMPRESSION: No acute cardiopulmonary disease. Report Dictated on Electronically Signed By: Ramez Katz MD Electronically Signed Date/Time: 04/21/2025 4:39 PM EDT Normal [facility] Progress Noteon 04-20-2025 Progress Note [facility] ([facility]) [facility]tico[facility] Clinic [address] [place] [address], [address], [place] [address] Pre-surgical warfarin education Jose Paniagua (1970) was called for new start warfarin education prior to valve surgery. Pt was referred by Dr. Ulloa. Pt is being seen by [facility] for warfarin education prior to anticipated valve surgery and to identify any potential barriers to anticoagulation - Planned surgery: mechanical aortic valve. - Anticipated duration of warfarin therapy: lifelong - Date of surgery: 04/28/25 PCP: Asher Jesus PA-C Project Administrative Assistant: none currently, will establish with one after surgery Cardiothoracic Surgeon: Dr. Ulloa Medication Adherence - Patient currently takes other daily medications: Yes - Patient has previously taken an anticoagulant: No - Patient has prescription insurance coverage: No - Patient has difficulty affording medications: No - Number of medication doses missed in an average week: never - Does anyone help patient with medications: yes Transportation and Housing - Patient has reliable form of transportation for appointments: Yes - Current living situation: home with family - Distance of home from [facility] or PCP office: lives about 4-5 miles from PCP office and 5-6 miles from a hospital. Discussed that we can manage initially (he thinks home care will be ordered so we can utilize that as needed and also schedule visits in [place] when he is seeing CTS for follow-ups) and eventually will transition to PCP for management. - Patient support system: strong support Substance Use - Typical alcohol use: no - Typical tobacco use: non-smoker - Other substance use: No - History of falls: none Food Security and Vitamin K consumption - Patient has difficulty obtaining or affording food: No - Typical Vitamin K consumption: likes to eat vitamin K foods, encouraged consistency - Protein drink consumption: none Reliable form of communication - Patient has working cell phone or reliable form of communication: Has an office phone where he can be reached about half the time [phone] - Interested in home INR testing in the future: n/a- will likely transition to PCP for management after acute post-op period Concern for low health literacy: No Review of Systems Objective There were no vitals filed for this visit. Assessment Lab Results Component Value Date INR 1.0 03/04/2025 Plan Specifically Bright was educated on the indication, risks of bleeding, s/s thromboses, when to seek medical attention, medication interactions, dietary/lifestyle considerations, risks with surgery, monitoring, and importance of adherence. Pt was educated on the effects of vitamin K containing foods and the importance of consistency was stressed. Pt was also advised to avoid large amounts of alcohol while on warfarin but he does not use alcohol or tobacco. Bright was instructed to notify [facility] of any unusual bruising or active/uncontrollabl e bleeding, medication changes within 24 hours, missed doses, dietary changes, illnesses or hospitalizations, and upcoming surgeries. The patient was instructed to notify all other physicians and pharmacists know that warfarin was started as a double-check against drug interactions. Patient care coordination completed: N/A Positive ROS findings are: N/A Patient given written instructions. Patient expressed understanding utilizing the teach back method. Discharged ambulatory in no apparent distress. Time spent 20 Minutes Jenae Delcid RPh [facility] 36on 04-19-2025 36 I called patients PCP's office and spoke with Bianca to see if they can manage patients INRs post op. She stated that they can manage but usually the surgeons wait till patients are stable before they take over. I explained that we will probably be able to do that as well. We will wait till after surgery to see if patient gets a home care agency and go from there. Normal [facility] 36 Patients returned my call. They live over an hour away. I was trying to coordinate appts with Pre-Admission Testing but that appt is on Saturday which we are closed. I staffed with Patricia Emanuel, and she stated that we can do education over the phone. Unfortunately, they don't have a phone in their home, so they will call us. I scheduled patient for tomorrow morning around 8:30. Normal [facility] Office Visiton 04-15-2025 Follow-up visit [id number] Bright Keen 1970 M Date Provider Department Center 04/15/2025 PATRICIA ZAVALA [facility] None No family history on file Level of Service:15729 [place] OFFICE/OUTPATIENT ESTABLISHED MOD MDM 30 MIN (57) Reason for Visit and Comments: New Patient [542] Normal [facility] Progress Noteon 04-15-2025 Progress Note Pre op teaching done with patient. Instructed to hold NSAIDS 7 days prior to surgery. All other medications per PAT protocol. Pharmacy confirmed. All questions answered. [facility] Progress Note [facility] CARDIOVASCULAR & THORACIC SURGERY [address] [facility] [address] Dept: [phone] Dept Loc: [phone] Visit type: New Reason for Visit: Aortic stenosis Assessment: 1. Severe aortic stenosis 2. Chronic diastolic (congestive) heart failure (HCC) Recommendations: He will undergo surgical aortic valve replacement with a mechanical valve. This procedure was explained to him in detail. The risks were outlined in terms of the STS risk calculator. The mild LAD stenosis does not need to be addressed surgically as it is nonobstructive and the LAD does not even reach the apex. All questions were answered and he is willing to proceed. STS Risk Calculator Procedure Type: CABG + AVR Perioperative Outcome Estimate % Operative Mortality 1.75% Morbidity & Mortality 8.97% Stroke 2.18% Renal Failure 1.24% Reoperation 2.85% Prolonged Ventilation 4.42% Deep Sternal Wound Infection 0.182% Long Hospital Stay (>14 days) 6.16% Short Hospital Stay (<6 days)* 35.8% History of Present Illness Bright Keen is a 55 y.o. male was referred to Valve Clinic while inpatient for aortic valve stenosis. Per note, patient was admitted to [facility] on 03/04/25 for stroke like symptoms, with MRI revealing four tiny acute embolic infarcts in the right frontal and occipital lobes, and left parietal lobe. Pt was treated with TNK and had drastic improvement in symptoms. During further workup, a transthoracic echo was obtained, which demonstrated EF 55%, LA and RA moderately dilated, and severe aortic valve stenosis concerning for potential etiology of cryptogenic stroke, peak/mean gradients 84/53 mm Hg, LITO 1.0 cm^2. Patient reported pretty limiting PADRON that had worsened over the previous 4-6 weeks, cardiology was consulted and elected to manage him outpatient. Patient was cleared for discharge on 03/06/25 with referral to Valve Clinic and Cryptogenic Stroke Program. Pt was evaluated in Valve Clinic on 03/30/25. Dr. Ulloa Note 03/30/25 Assessment/Plan: Severe symptomatic aortic stenosis--warrants intervention Chronic diastolic congestive heart failure Hypertension Recent ischemic stroke. Recommendations: He will require aortic valve intervention. This will likely be best achieved with a surgical AVR using a mechanical heart valve. Prior to surgery he will undergo left heart catheterization to evaluate his coronary arteries. He will then come see me in follow up for scheduling. Pt underwent heart catheterization on 04/06/25 which demonstrated LAD with a 50% lesion just after large D1 and 30% disease of the D1. Pt is here now for an evaluation. He remains short of breath with activity and complains of being tired all the time. He has cut back on his activity level because of this. He denies chest pain. He does get mild leg edema if he is on his feet a lot. There is no syncope or orthopnea. His heart cath only shows mild stenosis of his LAD, but it is nonobstructive in my view and does not require bypass. 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 Respiratory: Positive for shortness of breath (on exertion). All other systems reviewed and are negative. Physical Exam Vitals: BP (!) 142/90 (BP Location: Left arm, Patient Position: Sitting, BP Cuff Size: Large adult) Pulse 64 Ht 5' 10 (1.778 m) Wt 261 lb (118 kg) BMI 37.45 kg/m? Constitutional: General: Not in acute distress. Appearance: Normal appearance. Not toxic-appearing. Ear, nose, mouth: Bilateral external ear and nose normal. Nose: Nose normal. Mouth: Appearance normal, no bleeding, moist mucus membranes Eyes: General: No scleral icterus. No discharge from bilateral eyes Extraocular Movements: Extraocular movements intact. Pupils equal and reactive bilaterally Cardiovascular: Heart: Regular rhythm. Harsh 4/6 systolic murmur. A rhythm monitor is in place. Vascular: No carotid bruit. Edema: mild edema in bilateral lower extremities Pulmonary: Effort: Pulmonary effort is normal. No respiratory distress. Breath sounds: Normal breath sounds. No wheezing. Chest wall: No tenderness. Abdominal: Appearance: Not distended Palpations: There is no abdominal tenderness, no guarding. Musculoskeletal: Bilateral upper and lower extremities: Normal range of motion, no deformity Head: Normocephalic and atraumatic. Neck: Normal range of motion and neck supple. No muscular tenderness. Lymphadenopathy: Cervical: No cervical adenopathy. Skin: General: Skin is warm and dry. Coloration: Skin is not ja (more content not included)... Normal [facility] 36on 04-06-2025 36 Patient s/p heart cath today. Has moderate LAD disease. Plan to follow up with Artemio to discuss surgical AVR and possible FELICIANO. Normal [facility] Cardiac catheterization stud yon 04-06-2025 Background: This is a very pleasant 55 y.o. male with severe and symptomatic aortic stenosis, considering surgical aortic valve replacement Findings: Coronary Anatomy: Left main with minimal CAD LAD with a 50% lesion just after large D1 and 30% disease of the D1 Circumflex with mild CAD RCA with minimal CAD, very large, supplies the apex Recommendations: Continued aggressive risk factor modification and medical therapy Continued follow up in valve clinic to consider aortic valve replacement +/- FELICIANO to LAD Coronary Findings Diagnostic Dominance: Right Left Main: The vessel exhibits minimal luminal irregularities. Left Anterior Descending: Mid LAD lesion, 50% stenosed. First Diagonal Branch: 1st Diag lesion, 30% stenosed. First Obtuse Marginal Branch: The vessel exhibits minimal luminal irregularities. Right Coronary Artery: The vessel exhibits minimal luminal irregularities. Intervention No interventions have been documented. CV CPACS HEMO [facility] 36on 04-05-2025 36 Labs scanned in under Media Normal [facility] 36 I called [facility] lab and she is faxing results Normal [facility] 36on 04-02-2025 36 Requested on Snapboard Normal [facility] BMP with eGFRon 04-01-2025 AGE 55 years Normal [facility] Comment on above: Performed By: #### 2 [id number] #### [facility],[address] [place] [address] 04471 Anion gap [Moles/Vol] 11 mmol/L Normal 10 - 20 [facility] Comment on above: Performed By: #### 2 10741 #### [facility],[address] [place] [address] 81386 BMP with eGFR Normal [facility] Comment on above: Result Comment: BASI C METABOLIC PANEL Performed By: #### 2 67834 #### [facility],[address] [place] [address] 04542 Calcium [Mass/Vol] 9.4 mg/dL Normal 8.5 - 10.1 [facility] Comment on above: Performed By: #### 2 11901 #### [facility],[address] [place] [address] 52235 Chloride [Moles/Vol] 106 mmol/L Normal 98 - 107 [facility] Comment on above: Performed By: #### 2 80275 #### [facility],[address] [place] [address] 88059 CO2 [Moles/Vol] 25.7 mmol/L Normal 21.0 - 32.0 [facility] Comment on above: Performed By: #### 2 63272 #### [facility],[address] [place] [address] Creatinine [Mass/Vol] 0.82 mg/dL Normal 0.70 - 1.30 [facility] Comment on above: Performed By: #### 2 55497 #### [facility],[address] [place], [place] [address] GFR/1.73 sq M.predicted among non-blacks MDRD (S/P/Bld) [Vol rate/Area] mL/min/{1.73_m2} Normal 60 - 999 [facility] Comment on above: Performed By: #### 2 37095 #### [facility],[address] [place] [address] Result Comment: ACCO RDING TO THE NATIONAL KIDNEY DISEASE EDUCATION PROGRAM(NKDE), A NORMAL eGFR IS A VALUE GREATER THAN OR EQUAL TO 60 ML/MIN/1.73 SQ METERS. CHRONIC KIDNEY DISEASE: <60mL/MIN/1.73 SQ METERS KIDNEY FAILURE: <15mL/MIN/1.73 SQ METERS THIS TEST SHOULD ONLY BE USED FOR PATIENTS 18 YEARS OF AGE AND OLDER. Glucose [Mass/Vol] 89 mg/dL Normal 74 - 106 [facility] Comment on above: Performed By: #### 2 80428 #### [facility],[address] [place], [place] [phone] Potassium [Moles/Vol] 4.0 mmol/L Normal 3.5 - 5.1 [facility] Comment on above: Performed By: #### 2 12626 #### [facility],[address] [place] [address] 20326 Sodium [Moles/Vol] 139 mmol/L Normal 136 - 145 [facility] Comment on above: Performed By: #### 2 37089 #### [facility],[address] [place], [place] [address] Urea nitrogen [Mass/Vol] 16 mg/dL Normal 7 - 18 [facility] Comment on above: Performed By: #### 2 83493 #### [facility],[address] [place], [place] [phone] CBC + DIFFon 04-01-2025 Baso # 0.01 x10EE3/UL Normal 0.00 - 0.10 [facility] Comment on above: Performed By: #### 2 64981 ####[facility],[address] [place], [place] [phone] Basophils/100 WBC (Bld) 0.2 % Normal 0.0 - 2.0 [facility] Comment on above: Performed By: #### 2 00261 ####[facility],[address] [place] [address] CBC + DIFF Normal [facility] Comment on above: Result Comment: CBC- COMPLETE BLOOD COUNT Performed By: #### 2 19362 ####[facility],[address] [place] [address] EO # 0.08 x10EE3/UL Normal 0.00 - 0.50 [facility] Comment on above: Performed By: #### 2 27505 ####[facility],[address] [place] [address] 55209 Eosinophils/100 WBC (Bld) 1.6 % Normal 0.0 - 7.0 [facility] Comment on above: Performed By: #### 2 83141 ####[facility],[address] [place], [place] [phone] Erythrocyte distribution width (RBC) [Ratio] 13.9 % Normal 12.0 - 15.6 [facility] Comment on above: Performed By: #### 2 35420 ####[facility],[address] [place], [place] [phone] Hematocrit (Bld) [Volume fraction] 42.1 % Normal 40.0 - 52.0 [facility] Comment on above: Performed By: #### 2 52312 ####[facility],[address] [place] [address] 70565 Hemoglobin (Bld) [Mass/Vol] 14.8 g/dL Normal 13.0 - 17.5 [facility] Comment on above: Performed By: #### 2 70062 ####[facility],[address] [place], [place] [address] Lymph # 1.68 x10EE3/UL Normal 0.80 - 2.80 [facility] Comment on above: Performed By: #### 2 97993 ####[facility],[address] [place], [place] [address] Lymphocytes/100 WBC (Bld) 32.1 % Normal 20.0 - 45.0 [facility] Comment on above: Performed By: #### 2 21554 ####[facility],[address] [place], [place] [phone] MANUAL DIFF N/A Normal [facility] Comment on above: Performed By: #### 2 90245 ####[facility],[address] [place] [address] 43885 MCH (RBC) [Entitic mass] 29 pg Normal 27 - 33 [facility] Comment on above: Performed By: #### 2 77986 ####[facility],[address] [place] [address] 18471 MCHC 35 X10 3 Normal 32 - 36 [facility] Comment on above: Performed By: #### 2 61911 ####[facility],[address] [place] [address] 25394 MCV (RBC) [Entitic vol] 83 fL Normal 81 - 98 [facility] Comment on above: Performed By: #### 2 36823 ####[facility],[address] [place] [address] 09533 Wheeler # 0.40 x10EE3/UL Normal 0.20 - 1.00 [facility] Comment on above: Performed By: #### 2 25629 ####[facility],[address] [place] [address] 72218 MONOS % 7.7 % Normal 0.0 - 10.0 [facility] Comment on above: Performed By: #### 2 69318 ####[facility],[address] [place] [address] 84233 Morphology Adelso (Bld) [Interp] N/A Normal [facility] Comment on above: Performed By: #### 2 83385 ####[facility],[address] [place] [address] 38862 Neut # 3.05 x10EE3/UL Normal 1.50 - 7.10 [facility] Comment on above: Performed By: #### 2 32406 ####[facility],[address] [place] [address] 55097 Neutrophils/100 WBC (Bld) 58.4 % Normal 46.0 - 76.0 [facility] Comment on above: Performed By: #### 2 59011 ####[facility],[address] [place] [address] 24750 PLATELET 241 x10EE3/UL Normal 150 - 450 [facility] Comment on above: Performed By: #### 2 34899 ####[facility],[address] [place] [address] 13418 Platelet mean volume (Bld) [Entitic vol] 9.8 fL Normal 6.4 - 10.5 [facility] Comment on above: Result Comment: AUTO MATED DIFFERENTIAL Performed By: #### 2 40139 ####[facility],[address] [place] [address] 91584 RBC 5.05 x 10EE6/UL Normal 4.50 - 6.00 [facility] Comment on above: Performed By: #### 2 77943 ####[facility],[address] [place] [address] 50755 WBC 5.2 x 10EE3/UL Normal 4.5 - 10.8 [facility] Comment on above: Performed By: #### 2 85563 ####[facility],[address] [place] [address] 36on 03-31-2025 36 PC to patient. LMOM regarding cath duration and discharge. Pt to call office with further questions or concerns. [facility] 36 Name of caller: Odalis Contact phone number: [phone] Relationship to Patient: patient Provider: Dr Jackson Practice: [facility] Chief Complaint/Reason for Call: pts calling to ask how long the heart cath will take or when he can leave the day of his procedure Best time of day caller can be reached: AM Patient advised that office/PCP has 24-48 business hours to return their call: Yes [facility] Office Visiton 03-30-2025 Follow-up visit [id number] Bright Keen 1970 [facility] Provider Department Center 03/30/2025 [id number] ULLOA [facility] KAYE [facility] [address] No family history on file Level of Service:77948 SC OFFICE/OP CONSLTJ NEW/EST PT HIGH MDM 55 MINUTES Reason for Visit and Comments: New Patient [542] Cardiac Valve Problem [1334] - Heart valve clinic [facility] Follow-up visit [id number] Bright Keen 1970 [facility] Provider Department Center 03/30/2025 [id number] DIXON [facility] KAYE [facility] [address] No family history on file Level of Service:12391 SC OFFICE/OUTPATIENT NEW HIGH MDM 60 MINUTES Reason for Visit and Comments: New Patient [542] Cardiac Valve Problem [1334] - Heart valve clinic [facility] Progress Noteon 03-30-2025 Progress Note [facility]: Cardiothoracic Surgery Multidisciplinary Heart Valve Clinic Date: 03/30/25 Patient:Bright Osmani 1970 55 y.o. male [id number] Subjective: HPI: Bright Keen 54 [address] Dr[address] Holcomb while inpatient, is being evaluated for aortic valve stenosis. Echocardiogram completed on 03/04/25 showed severe aortic valve stenosis with peak/mean gradients 84/53 mm Hg, LITO 1.0 cm^2. Per note, patient was admitted to [facility] on 03/04/25 for stroke like symptoms, with MRI revealing four tiny acute embolic infarcts in the right frontal and occipital lobes, and left parietal lobe. Pt was treated with TNK and had drastic improvement in symptoms. During further workup, a transthoracic echo was obtained, which demonstrated EF 55%, LA and RA moderately dilated, and severe aortic valve stenosis concerning for potential etiology of cryptogenic stroke, peak/mean gradients 84/53 mm Hg, LITO 1.0 cm^2. Patient reported pretty limiting PADRON that had worsened over the previous 4-6 weeks, cardiology was consulted and elected to manage him outpatient. Patient was cleared for discharge on 03/06/25 with referral to Valve Clinic and Cryptogenic Stroke Program. Patient is scheduled for 30-day Holter monitor placement on 03/30/25. Mr. Benítez was admitted to the hospital a few weeks ago with an acute ischemic stroke. He was given thrombolytic therapy which resolved his symptoms. He has had no weakness or other symptoms since that time. His main complaint now is shortness of breath with any exertion. 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 He denies any syncope or leg edema, however. He has had his symptoms for over one year. He takes Plavix due to his stroke. Medical History No past medical history on file. Blood thinner Transthoracic Echocardiogram 03/04/25 Interpretation Summary Left Ventricle: Left ventricle size is normal. Moderately increased wall thickness. Normal left ventricular systolic function. The EF by visual approximation is 55%. Global longitudinal strain is -14.7%. Normal wall motion. Right Ventricle: Right ventricle size is normal. Normal systolic function. Aortic Valve: Trileaflet. Moderately thickened cusps. Severely calcified cusps. Trace regurgitation. Severe stenosis of the aortic valve. AV mean gradient is 53 mmHg. AV peak gradient is 84 mmHg. AV peak velocity is 4.6 m/s. LVOT:AV VTI Index is 0.25. AV area by continuity VTI is 1.0 cm2. Left Atrium: Left atrium is moderately dilated. Right Atrium: Right atrium is moderately dilated. Review of Systems Constitutional: Negative for activity change, chills, diaphoresis, fatigue and fever. HENT: Negative for nosebleeds and trouble swallowing. Eyes: Negative for discharge and visual disturbance. Respiratory: Positive for shortness of breath (on exertion). Negative for apnea, cough, chest tightness and wheezing. Cardiovascular: Negative for chest pain, palpitations and leg swelling. Gastrointestinal: Negative for abdominal distention, abdominal pain, blood in stool, diarrhea, nausea and vomiting. Endocrine: Negative for cold intolerance and heat intolerance. Genitourinary: Negative for hematuria. Musculoskeletal: Negative for gait problem and myalgias. Skin: Negative for color change and rash. Neurological: Negative for dizziness, seizures, syncope, facial asymmetry, speech difficulty, weakness, light-headedness, numbness and headaches. Hematological: Does not bruise/bleed easily. Psychiatric/Behavior al: Negative for dysphoric mood. Allergies: Patient has no known allergies. Past Medical History: has no past medical history on file. Past Surgical History: has no past surgical history on file. Social History: Family History: family history is not on file. Medications: Prior to Admission medications Medication Sig Start Date End Date Taking? Authorizing Provider aspirin 81 MG chewable tablet Chew 1 tablet (81 mg) daily. Do not start before March 07, 2025. 03/07/25 03/07/26 Chad Holcomb MD atorvastatin (Lipitor) 40 MG tablet Take 1 tablet (40 mg) by mouth daily. Do not start before March 07, 2025. 03/07/25 03/07/26 Chad Holcomb MD clopidogrel (Plavix) 75 MG tablet Take 1 tablet (75 mg) by mouth daily for 19 days. Do not start before March 07, 2025. 03/07/25 03/26/25 Chad Holcomb MD Objective: BP 130/84 (BP Location: Right arm, Patient Position: Sitting, BP Cuff Size: Large adult) Pulse 74 Ht 5' 10 (1.778 m) Wt 262 lb 5.6 oz (119 kg) SpO2 94% BMI 37.64 kg/m? @[id number]@ Physical Exam General --AAO x 3 CV--RRR with systolic murmur present Resp--CTAB Abd--soft, obese, NT Ext--no significant edema Neuro--no gross deficits. Labs: Reviewed in EMR Lab Results Component Value Date WBC 6.2 03/06/2025 HGB 13.6 03/06/2025 HCT 40.5 03/06/2025 MCV 83.5 03/06/2025 PLT 212 03/06/2025 Lab Results Component Value Date NA (more content not included)... Normal [facility] Progress Note [facility] [place] [address] [facility] [address] Dept: [phone] Dept Visit type: New : 1970 Reason for Visit: New Patient and Cardiac Valve Problem (Heart valve clinic) Assessment and Plan 1. Nonrheumatic aortic valve stenosis - [facility] [place] [facility] - ECG 12 lead - CLINIC PERFORMED - CBC auto differential - Basic metabolic panel - Case Request Field Appraiser: Left and right heart cath / coronary angiography This is a very pleasant 55 y.o. male with severe and symptomatic aortic stenosis. he is in need of aortic valve replacement. Will get a cardiac cath to evaluate for concomitant coronary disease. Will then likely see CT surgery back in the office to discuss the possibility of open heart surgery, mechanical vs bioprosthetic valve, etc. This decision was made after multidisciplinary discussion, using a shared decision making strategy. CT surgery also saw patient to aide in discussion. He would not need any specific treatment for his cryptogenic stroke, from a cardiac standpoint. He has no PFO. He simply needs post stroke medical therapy and aggressive risk factor modification. It was a pleasure seeing your patient in the office today. Please do not hesitate to call me with any questions. Follow up for Recheck after cath. Subjective HPI Bright Keen is a very pleasant 55 y.o. male who is here for evaluation of his aortic valve disease. his symptoms include progressive dyspnea on exertion. He was recently hospitalized for a cryptogenic stroke, but was not found to have a PFO, echo did show severe . his most recent echo shows normal LV function, severe aortic stenosis with mean gradient 53mmHg. He is currently wearing a 30 day event monitor to search for afib. He has had full recovery of neurologic function (did received TNK for stroke). . Review of Systems Constitutional: Negative for activity change, chills, diaphoresis, fatigue and fever. HENT: Negative for nosebleeds and trouble swallowing. Eyes: Negative for discharge and visual disturbance. Respiratory: Positive for shortness of breath (on exertion). Negative for apnea, cough, chest tightness and wheezing. Cardiovascular: Negative for chest pain, palpitations and leg swelling. Gastrointestinal: Negative for abdominal distention, abdominal pain, blood in stool, diarrhea, nausea and vomiting. Endocrine: Negative for cold intolerance and heat intolerance. Genitourinary: Negative for hematuria. Musculoskeletal: Negative for gait problem and myalgias. Skin: Negative for color change and rash. Neurological: Negative for dizziness, seizures, syncope, facial asymmetry, speech difficulty, weakness, light-headedness, numbness and headaches. Hematological: Does not bruise/bleed easily. Psychiatric/Behavior al: Negative for dysphoric mood. No Known Allergies Current Outpatient Medications: aspirin 81 MG chewable tablet, Chew 1 tablet (81 mg) daily. Do not start before March 07, 2025., Disp: 30 tablet, Rfl: 11 atorvastatin (Lipitor) 40 MG tablet, Take 1 tablet (40 mg) by mouth daily. Do not start before March 07, 2025., Disp: 30 tablet, Rfl: 11 No past medical history on file. Social History Tobacco Use Smoking status: Not on file Smokeless tobacco: Not on file Substance Use Topics Alcohol use: Not on file No past surgical history on file. No family history on file. Objective Vitals: 03/30/25 1417 BP: 130/84 BP Location: Right arm Patient Position: Sitting BP Cuff Size: Large adult Pulse: 74 SpO2: 94% Weight: 263 lb 3.2 oz (119 kg) Height: 5' 10 (1.778 m) Physical Exam Cardiovascular: Heart sounds: Murmur heard. Systolic murmur is present with a grade of 3/6. Data Reviewed and Summarized EF BP Date Value Ref Range Status 03/05/2025 66 55 - 100 % Final Review of tests/labs done/ordered within my specialty: EKG in office: Review of tests/labs done/ordered outside my specialty: Independent interpretation of tests: I personally reviewed the images from Bright Keen's most recent TTE in the office today, to help with medical decision making. My interpretation is noted in the HPI section of this note. Shilpa Jackson MD NYHA Class (1-4): 2 STS score: 0.979% 5 meter gait speed in seconds: 5, 5, 5 Ao valve disease etiology (degenerative, rheumatic, endocarditis, other): degenerative Normal [facility] Progress Noteon 03-26-2025 Progress Note Bright Keen 54 y.o[address] referred by Dr. Holcomb while inpatient, is being evaluated for aortic valve stenosis. Echocardiogram completed on 03/04/25 showed severe aortic valve stenosis with peak/mean gradients 84/53 mm Hg, LITO 1.0 cm^2. Per note, patient was admitted to [facility] on 03/04/25 for stroke like symptoms, with MRI revealing four tiny acute embolic infarcts in the right frontal and occipital lobes, and left parietal lobe. Pt was treated with TNK and had drastic improvement in symptoms. During further workup, a transthoracic echo was obtained, which demonstrated EF 55%, LA and RA moderately dilated, and severe aortic valve stenosis concerning for potential etiology of cryptogenic stroke, peak/mean gradients 84/53 mm Hg, LITO 1.0 cm^2. Patient reported pretty limiting PADRON that had worsened over the previous 4-6 weeks, cardiology was consulted and elected to manage him outpatient. Patient was cleared for discharge on 03/06/25 with referral to Valve Clinic and Cryptogenic Stroke Program. Patient is scheduled for 30-day Holter monitor placement on 03/30/25. No past medical history on file. Blood thinner Transthoracic Echocardiogram 03/04/25 Interpretation Summary Left Ventricle: Left ventricle size is normal. Moderately increased wall thickness. Normal left ventricular systolic function. The EF by visual approximation is 55%. Global longitudinal strain is -14.7%. Normal wall motion. Right Ventricle: Right ventricle size is normal. Normal systolic function. Aortic Valve: Trileaflet. Moderately thickened cusps. Severely calcified cusps. Trace regurgitation. Severe stenosis of the aortic valve. AV mean gradient is 53 mmHg. AV peak gradient is 84 mmHg. AV peak velocity is 4.6 m/s. LVOT:AV VTI Index is 0.25. AV area by continuity VTI is 1.0 cm2. Left Atrium: Left atrium is moderately dilated. Right Atrium: Right atrium is moderately dilated. Comparison Study Information Prior Study There is no prior study available for comparison Echo Findings Left Ventricle Left ventricle size is normal. Moderately increased wall thickness. Normal left ventricular systolic function. The EF by visual approximation is 55%. Global longitudinal strain is -14.7%. Normal wall motion. Right Ventricle Right ventricle size is normal. Normal systolic function. Left Atrium Left atrium is moderately dilated. Interatrial Septum No interatrial shunt visualized on color Doppler. Right Atrium Right atrium is moderately dilated. Aortic Valve Trileaflet. Moderately thickened cusps. Severely calcified cusps. Trace regurgitation. Severe stenosis of the aortic valve. AV mean gradient is 53 mmHg. AV peak gradient is 84 mmHg. AV peak velocity is 4.6 m/s. LVOT:AV VTI Index is 0.25. AV area by continuity VTI is 1.0 cm2. Mitral Valve Valve structure is normal. Trace regurgitation. No stenosis noted. Tricuspid Valve Valve structure is normal. Trace regurgitation. Unable to assess RVSP due to insignificant tricuspid regurgitation. Pulmonic Valve The pulmonic valve visualization is suboptimal but appears to be functioning normally. Trace regurgitation. Aorta Normal sized sinuses of Valsalva and ascending aorta. IVC/Hepatic Veins IVC diameter is normal and decreases greater than 50% during inspiration; therefore the estimated right atrial pressure is normal (~3 mmHg). Pericardium No pericardial effusion. [facility] 03-24-2025 36 Pt called back the appt in in [place] will work for him, pt was given the address and directions to [facility] 36 Pt's EM rs to 10:30 on the in [facility] Left detailed message with the new date and time, pt instructed to call back [facility] 03-12-2025 36 EM scheduled for 03/25 at 1030, OC fu 06/18/25 Left detailed message with the dates and times pt instructed to call back to confirm [facility] 03-10-2025 36 Patient referred to the cryptogenic stroke program by neurology he was discharged home on 03/08/2025 and will need a 30-day event monitor and follow-up with Dr. Francis [facility] 36 Has PCP follow up tomorrow. Scheduled with [facility] for follow up in June and on a cancellation list for sooner appointment if one becomes available. Has Cardiology appointment scheduled 03/30/2025. [facility] 03-09-2025 36 Made chart and mailed DENTAL TECHNOLOGIST packet [facility] 03-08-2025 36 Patient sched for 03/30 2:00 PB/EE and I will mail DENTAL TECHNOLOGIST packet and make chart [facility] 03-06-2025 30 Normal [facility] 36on 03-06-2025 36 Erroneous encounter, please disregard Normal [facility] BASIC METABOLIC PANELon Anion gap [Moles/Vol] 4 mmol/L Normal 3-13 [facility] Comment on above: Performed By: #### L AB15, [id number] ####Groover Operator: STEFANIE WARD ([phone])[facility] ([facility])[address] [place] [address] Calcium [Mass/Vol] 8.5 mg/dL Normal 8.4-10.2 [facility] Comment on above: Performed By: #### L AB15, [id number] ####Groover Operator: STEFANIE WARD ([phone])[facility] ([facility])[address] [place] [address] Chloride [Moles/Vol] 111 mmol/L High 98-107 [facility] Comment on above: Performed By: #### Nahun AB15, [id number] ####Groover Operator: STEFANIE WARD ([id number])[facility] ([facility])[address] [place] [address] [place] CO2 [Moles/Vol] 22 mmol/L Normal 22-29 [facility] Comment on above: Performed By: #### L AB15, [id number] ####Groover Operator: STEFANIE WARD ([phone])[facility] ([facility])[address] [place] [address] Creatinine [Mass/Vol] 0.76 mg/dL Normal 0.72-1.25 [facility] Comment on above: Performed By: #### L AB15, [id number] ####Groover Operator: STEFANIE WARD ([phone])[facility] ([facility])[address] [place] [address] GLOMERULAR FILTRATION RATE ML/MIN/1.73 SQ M.PREDICTED >90.0 Normal >60.0 [facility] Comment on above: Result Comment: Calc ulation based on the Chronic Kidney Disease Epidemiology Collaboration (CKD-EPI) equation refit without adjustment for race Performed By: #### Nahun ALDANA, [id number] ####Groover Operator: STEFANIE WARD ([phone])[facility])[address] [place] [address] Glucose [Mass/Vol] 92 mg/dL Normal 74-100 [facility] Comment on above: Performed By: #### Nahun ALDANA, [id number] ####Groover Operator: STEFANIE WARD ([id number])[facility])[address] [place] [address] Potassium [Moles/Vol] 4.3 mmol/L Normal 3.5-5.1 [facility] Comment on above: Result Comment: [facility] potassium values may be up to 0.5 mmol/L lower than serum values. Performed By: #### Nahun ALDANA, [id number] ####Groover Operator: STEFANIE WARD ([phone])[facility])[address] [place] [address] Sodium [Moles/Vol] 137 mmol/L Normal 136-145 [facility] Comment on above: Performed By: #### Nahun ALDANA, [id number] ####Groover Operator: STEFANIE WARD ([phone])[facility])[address] [place] [address] Urea nitrogen [Mass/Vol] 13 mg/dL Normal 9-23 [facility] Comment on above: Performed By: #### Nahun ALDANA, [id number] ####Groover Operator: STEFANIE WARD ([phone])[facility])[address] [place] [address] Basic metabolic 1998 panelon 03-06-2025 Anion gap [Moles/Vol] 4 mmol/L 3 - 13 mmol/L [facility] Calcium [Mass/Vol] 8.5 mg/dL 8.4 - 10. 2 mg/dL [facility] Chloride [Moles/Vol] 111 mmol/L High 98 - 10 7 mmol/L [facility] CO2 [Moles/Vol] 22 mmol/L 22 - 29 mmol/L [facility] Creatinine [Mass/Vol] 0.76 mg/dL 0.72 - 1.25 mg/dL [facility] GFR/1.73 sq M.predicted (S/P/Bld) [Vol rate/Area] - PINF [facility] Comment on above: Calculation based on the Chronic Kidney Disease Epidemiology Collaboration (CKD-EPI) equation refit without adjustment for race Glucose [Mass/Vol] 92 mg/dL 74 - 100 mg/dL [facility] Interpretation and review of laboratory results Abnormal [facility] Potassium [Moles/Vol] 4.3 mmol/L 3.5 - 5.1 mmol/L [facility] Comment on above: Plasma potassium rena ues may be up to 0.5 mmol/L lower than serum values. Sodium [Moles/Vol] 137 mmol/L 136 - 145 mmol/L [facility] Urea nitrogen [Mass/Vol] 13 mg/dL 9 - 23 mg/d L [facility] CBC W Auto Differential pane l (Bld)on 03-06-2025 Basophils (Bld) [#/Vol] 0.1 10*3/uL 0.0 - 0.2 10*3/uL [facility] Basophils/100 WBC (Bld) 0.8 % 0.0 - 2.0 % [facility] Eosinophils (Bld) [#/Vol] 0.2 10*3/uL 0.0 - 0.5 10*3/uL [facility] Eosinophils/100 WBC (Bld) 3.7 % 0.0 - 6.0 % [facility] Erythrocyte distribution width (RBC) [Ratio] 13.2 % 11.5 - 15.0 % [facility] Hematocrit (Bld) [Volume fraction] 40.5 % 40.0 - 52.0 % [facility] Hemoglobin (Bld) [Mass/Vol] 13.6 g/dL 13.0 - 18.0 g/dL [facility] Immature granulocytes (Bld) [#/Vol] 0 10*3/uL NINF - 0.1 10*3/uL [facility] Immature granulocytes/100 WBC (Bld) 0.2 % 0.0 - 2.0 % [facility] Interpretation and review of laboratory results Normal [facility] Lymphocytes (Bld) [#/Vol] 1.7 10*3/uL 1.0 - 4.3 10*3/uL [facility] Lymphocytes/100 WBC (Bld) 27.4 % 15.0 - 45.0 % [facility] MCH (RBC) [Entitic mass] 28 pg 26. 0 - 34.0 pg [facility] MCHC (RBC) [Mass/Vol] 33.6 % 30.5 - 36.0 % [facility] MCV (RBC) [Entitic vol] 83.5 fL 77.0 - 99.0 fL [facility] Monocytes (Bld) [#/Vol] 0.7 10*3/uL 0.0 - 0.9 10*3/uL [facility] Monocytes/100 WBC (Bld) 10.8 % 5.0 - 13.0 % [facility] Neutrophils (Bld) [#/Vol] 3.5 10*3/uL 1.8 - 7.5 10*3/uL [facility] Neutrophils/100 WBC (Bld) 57.1 % 38.0 - 82.0 % [facility] Nucleated RBC/100 WBC (Bld) [Ratio] 0 % [facility] Platelet mean volume (Bld) [Entitic vol] 11.3 fL 9.0 - 12.7 fL [facility] Platelets (Bld) [#/Vol] 212 10*3/uL 140 - 440 10*3/uL [facility] RBC (Bld) [#/Vol] 4.85 10*6/uL 4.40 - 5.9 0 10*6/uL [facility] WBC (Bld) [#/Vol] 6.2 10*3/uL 3.6 - 10.7 10*3/uL [facility] CBC WITH AUTO DIFFERENTIALon 03-06-2025 Basophils (Bld) [#/Vol] 0.1 10*3/uL Normal 0.0-0.2 [facility] Comment on above: Performed By: #### L [id number] ####Groover Operator: STEFANIE WARD ([phone])[facility] ([address] Basophils/100 WBC (Bld) 0.8 % Normal 0.0-2.0 [facility] Comment on above: Performed By: #### L [id number] ####Groover Operator: STEFANIE WARD ([phone])[facility])[address] [place] [address] Eosinophils (Bld) [#/Vol] 0.2 10*3/uL Normal 0.0-0.5 [facility] Comment on above: Performed By: #### L [id number] ####Groover Operator: STEFANIE WARD ([phone])[facility])[address] [place] [address] Eosinophils/100 WBC (Bld) 3.7 % Normal 0.0-6.0 [facility] Comment on above: Performed By: #### L [id number] ####Groover Operator: STEFANIE WARD ([phone])[address] Erythrocyte distribution width (RBC) [Ratio] 13.2 % Normal 11.5-15.0 [facility] Comment on above: Performed By: #### L [id number] ####Groover Operator: STEFANIE WARD ([phone])[facility])[address] [place] [address] Hematocrit (Bld) [Volume fraction] 40.5 % Normal 40.0-52.0 [facility] Comment on above: Performed By: #### L [id number] ####Groover Operator: STEFANIE WARD ([phone])[address] Hemoglobin (Bld) [Mass/Vol] 13.6 g/dL Normal 13.0-18.0 [facility] Comment on above: Performed By: #### L [id number] ####Groover Operator: STEFANIE WARD ([phone])[facility])[address] [place] [address] IMMATURE GRANS % 0.2 % Normal 0.0-2.0 [facility] Comment on above: Performed By: #### L [id number] ####Groover Operator: STEFANIE WARD ([phone])[place] [id number] [place] IMMATURE GRANS ABSOLUTE 0.0 10*3/uL Normal <0.1 [facility] Comment on above: Performed By: #### L [id number] ####Groover Operator: STEFANIE WARD ([phone])[facility])[address] [place] [address] Lymphocytes (Bld) [#/Vol] 1.7 10*3/uL Normal 1.0-4.3 [facility] Comment on above: Performed By: #### L [id number] ####Groover Operator: STEFANIE WARD ([phone])[facility])[address] [place] [address] Lymphocytes/100 WBC (Bld) 27.4 % Normal 15.0-45.0 [facility] Comment on above: Performed By: #### L [id number] ####Groover Operator: STEFANIE WARD ([phone])[facility])[address] [place] [address] MCH (RBC) [Entitic mass] 28.0 pg Normal 26.0-34.0 [facility] Comment on above: Performed By: #### L [id number] ####Groover Operator: STEFANIE WARD ([phone])[facility])[address] [place] [address] MCHC 33.6 % Normal 30.5-36.0 [facility] Comment on above: Performed By: #### L [id number] ####Groover Operator: STEFANIE WARD ([phone])[facility])[address] [place] [address] MCV (RBC) [Entitic vol] 83.5 fL Normal 77.0-99.0 [facility] Comment on above: Performed By: #### L [id number] ####Groover Operator: STEFANIE WARD ([id number])[facility])[address] [place] [address] Monocytes (Bld) [#/Vol] 0.7 10*3/uL Normal 0.0-0.9 [facility] Comment on above: Performed By: #### L [id number] ####Groover Operator: STEFANIE WARD ([phone])[facility] ([facility])[address] [place] [address] Monocytes/100 WBC (Bld) 10.8 % Normal 5.0-13.0 [facility] Comment on above: Performed By: #### L [id number] ####Groover Operator: STEFANIE WARD ([phone])[facility] ([facility])[address] [place] [address] NEUTROPHILS ABSOLUTE 3.5 10*3/uL Normal 1.8-7.5 [facility] Comment on above: Performed By: #### L [id number] ####Groover Operator: STEFANIE WARD ([phone])[facility] ([facility])[address] [place] [address] Neutrophils/100 WBC (Bld) 57.1 % Normal 38.0-82.0 [facility] Comment on above: Performed By: #### L [id number] ####Groover Operator: STEFANIE WARD ([id number])[facility] ([facility])[address] [place] [address] NRBC 0.0 /100 WBCs Normal 0.0-2.0 [facility] Comment on above: Performed By: #### L [id number] ####Groover Operator: STEFANIE WARD ([phone])[facility] ([facility])[address] [place] [address] Platelet mean volume (Bld) [Entitic vol] 11.3 fL Normal 9.0-12.7 [facility] Comment on above: Performed By: #### L [id number] ####Groover Operator: STEFANIE WARD ([phone])[facility] ([facility])[address] [place] [address] Platelets (Bld) [#/Vol] 212 10*3/uL Normal 140-440 [facility] Comment on above: Performed By: #### L [id number] ####Groover Operator: STEFANIE WARD ([phone])[facility] ([facility])[address] [place] [address] RBC (Bld) [#/Vol] 4.85 10*6/uL Normal 4.40-5.90 [facility] Comment on above: Performed By: #### L [id number] ####Groover Operator: STEFANIE WARD ([phone])[facility])[address] [place] [address] WBC (Bld) [#/Vol] 6.2 10*3/uL Normal 3.6-10.7 [facility] Comment on above: Performed By: #### L [id number] ####Groover Operator: STEFANIE WARD ([phone])[facility])[address] [place] [address] HIGH SENSITIVITY TROPONIN, S ERIAL, SECOND TESTon 03-06-2025 2H TROPONIN HS (SERIAL 2ND TROPONIN) 115 ng/L High <=35 [facility] Comment on above: Result Comment: 2h t roponin (2nd troponin) samples collected between 1h 40 min and 2h and 20 min of the baseline collection time can be utilized to interpret delta troponins as per [employer] algorithms. Samples collected outside this timeframe need to be interpreted clinically. Rising or falling troponin delta between 2 ??? 15 ng/L as compared to baseline value requires a 3rd serial troponin Performed By: #### L AB15, [id number] ####Groover Operator: STEFANIE WARD ([phone])[facility])[address] [place] [address] HIGH SENSITIVITY TROPONIN, S ERIAL, THIRD TESTon 03-06-2025 4H TROPONIN HS (SERIAL 3RD TROPONIN) 93 ng/L High <=35 [facility] Comment on above: Result Comment: Risi ng or falling troponin delta greater than 15 ng/L as compared to 2h troponin value is significant for acute cardiac injury. Performed By: #### L [id number] ####Groover Operator: STEFANIE WARD ([phone])[facility])[address] [place] [address] No Panel Informationon 03-06 4h Troponin HS (Serial 3rd Troponin) 93 ng/L High NINF - 35 ng/L [facility] Comment on above: Rising or falling tr oponin delta greater than 15 ng/L as compared to 2h troponin value is significant for acute cardiac injury. Interpretation and review of laboratory results Abnormal [facility] 2h Troponin HS (Serial 2nd Troponin) 115 ng/L High NINF - 35 ng/L [facility] Comment on above: 2h troponin (2nd tro ponin) samples collected between 1h 40 min and 2h and 20 min of the baseline collection time can be utilized to interpret delta troponins as per [facility] algorithms. Samples collected outside this timeframe need to be interpreted clinically. Rising or falling troponin delta between 2 15 ng/L as compared to baseline value requires a 3rd serial troponin Interpretation and review of laboratory results Abnormal [facility] Nursing Noteon 03-06-2025 Nursing Note Discharge instructions given to patient and reviewed with him. Patient verbalized understanding. Normal [facility] Progress Noteon 03-06-2025 Progress Note OCCUPATIONAL THERAPY [facility] Name/MRN: Bright Keen ([id number]) Date: 03/06/2025 Orders received for OT evaluation and treat. Pt agreeable to therapy. Demonstrates independence with all ADLs. Spent 5 minutes of non-billable time with the pt from [id number]. OT to sign off, recommending home independently at discharge. Ron Reeves, ADEN [facility] [id number] 03-05-2025 [id number] Patient has PCP follow up scheduled. What's Next What's Next Follow up with Dr Asher Rahman Mar Follow up from hospital stay at 08:30 AM [facility] [address] [place] [address] [place] [address] [facility] BASIC METABOLIC PANELon 040 Anion gap [Moles/Vol] 9 mmol/L Normal 3-13 [facility] Comment on above: Performed By: #### L AB15, [id number] ####Groover Operator: STEFANIE WARD ([phone])[facility] ([facility] Calcium [Mass/Vol] 8.5 mg/dL Normal 8.4-10.2 [facility] Comment on above: Performed By: #### L AB15, [id number] ####Groover Operator: STEFANIE WARD ([phone])[facility])[address] [place] [address] Chloride [Moles/Vol] 110 mmol/L High 98-107 [facility] Comment on above: Performed By: #### L AB15, LAB18 ####Groover Operator: STEFANIE WARD ([phone])[facility] ([facility])[address] [place] [address] CO2 [Moles/Vol] 19 mmol/L Low 22-29 [facility] Comment on above: Performed By: #### L AB15, [id number] ####Groover Operator: STEFANIE WARD ([phone])[facility] ([facility])[address] [place] [address] Creatinine [Mass/Vol] 0.86 mg/dL Normal 0.72-1.25 [facility] Comment on above: Performed By: #### L AB15, LAB18 ####Groover Operator: STEFANIE WARD ([id number])[facility])[address] [place] [address] GLOMERULAR FILTRATION RATE ML/MIN/1.73 SQ M.PREDICTED >90.0 Normal >60.0 [facility] Comment on above: Result Comment: Calc ulation based on the Chronic Kidney Disease Epidemiology Collaboration (CKD-EPI) equation refit without adjustment for race Performed By: #### L AB15, LAB18 ####Groover Operator: STEFANIE WARD ([phone])[facility] ([facility])[address] [place] [address] [place] Glucose [Mass/Vol] 92 mg/dL Normal 74-100 [facility] Comment on above: Performed By: #### L AB15, LAB18 ####Groover Operator: STEFANIE WARD ([phone])[facility] ([facility])[address] [place] [address] Potassium [Moles/Vol] 4.0 mmol/L Normal 3.5-5.1 [facility] Comment on above: Result Comment: [facility] potassium values may be up to 0.5 mmol/L lower than serum values. Performed By: #### L AB15, LAB18 ####Groover Operator: STEFANIE WARD ([phone])[facility] ([facility])[address] [place] [address] Sodium [Moles/Vol] 138 mmol/L Normal 136-145 [facility] Comment on above: Performed By: #### L AB15, LAB18 ####Groover Operator: STEFANIE WARD ([phone])[facility] ([facility])[address] [place] [address] Urea nitrogen [Mass/Vol] 13 mg/dL Normal 9-23 [facility] Comment on above: Performed By: #### L AB15, LAB18 ####Groover Operator: STEFANIE WARD ([phone])[address] Bacteria identified Cx Nom ( U)Ordered By: sAhley Del Cid on 03-05-2025 Interpretation and review of laboratory results Normal [facility] Basic metabolic 1998 panelon 03-05-2025 Anion gap [Moles/Vol] 9 mmol/L 3 - 13 mmol/L [facility] Calcium [Mass/Vol] 8.5 mg/dL 8.4 - 10. 2 mg/dL [facility] Chloride [Moles/Vol] 110 mmol/L High 98 - 10 7 mmol/L [facility] CO2 [Moles/Vol] 19 mmol/L Low 22 - 29 mmol/L [facility] Creatinine [Mass/Vol] 0.86 mg/dL 0.72 - 1.25 mg/dL [facility] GFR/1.73 sq M.predicted (S/P/Bld) [Vol rate/Area] - PINF [facility] Comment on above: Calculation based on the Chronic Kidney Disease Epidemiology Collaboration (CKD-EPI) equation refit without adjustment for race Glucose [Mass/Vol] 92 mg/dL 74 - 100 mg/dL [facility] Potassium [Moles/Vol] 4 mmol/L 3.5 - 5.1 mmol/L [facility] Comment on above: Plasma potassium rena ues may be up to 0.5 mmol/L lower than serum values. Sodium [Moles/Vol] 138 mmol/L 136 - 145 mmol/L [facility] [employer] Urea nitrogen [Mass/Vol] 13 mg/dL 9 - 23 mg/d L [facility] [employer] CBC W Auto Differential pane l (Bld)on 03-05-2025 Basophils (Bld) [#/Vol] 0 10*3/uL 0.0 - 0.2 10*3/uL [facility] [employer] Basophils/100 WBC (Bld) 0.4 % 0.0 - 2.0 % [facility] [employer] Eosinophils (Bld) [#/Vol] 0.1 10*3/uL 0.0 - 0.5 10*3/uL [facility] [employer] Eosinophils/100 WBC (Bld) 1.7 % 0.0 - 6.0 % [facility] [employer] Erythrocyte distribution width (RBC) [Ratio] 13 % 11.5 - 15.0 % [facility] [employer] Hematocrit (Bld) [Volume fraction] 39.6 % Low 40.0 - 52.0 % [facility] [employer] Hemoglobin (Bld) [Mass/Vol] 13.3 g/dL 13.0 - 18.0 g/dL [facility] [employer] Immature granulocytes (Bld) [#/Vol] 0 10*3/uL NINF - 0.1 10*3/uL [facility] [employer] Immature granulocytes/100 WBC (Bld) 0.2 % 0.0 - 2.0 % [facility] Interpretation and review of laboratory results Abnormal [facility] [employer] Lymphocytes (Bld) [#/Vol] 1.7 10*3/uL 1.0 - 4.3 10*3/uL [facility] [employer] Lymphocytes/100 WBC (Bld) 20.8 % 15.0 - 45.0 % [facility] MCH (RBC) [Entitic mass] 28.1 pg 26. 0 - 34.0 pg [facility] [employer] MCHC (RBC) [Mass/Vol] 33.6 % 30.5 - 36.0 % [facility] MCV (RBC) [Entitic vol] 83.7 fL 77.0 - 99.0 fL [facility] [employer] Monocytes (Bld) [#/Vol] 0.7 10*3/uL 0.0 - 0.9 10*3/uL [facility] [employer] Monocytes/100 WBC (Bld) 8.4 % 5.0 - 13.0 % [facility] Neutrophils (Bld) [#/Vol] 5.5 10*3/uL 1.8 - 7.5 10*3/uL [facility] Neutrophils/100 WBC (Bld) 68.5 % 38.0 - 82.0 % [facility] Nucleated RBC/100 WBC (Bld) [Ratio] 0 % [facility] Platelet mean volume (Bld) [Entitic vol] 11.5 fL 9.0 - 12.7 fL [facility] Platelets (Bld) [#/Vol] 233 10*3/uL 140 - 440 10*3/uL [facility] RBC (Bld) [#/Vol] 4.73 10*6/uL 4.40 - 5.9 0 10*6/uL [facility] WBC (Bld) [#/Vol] 8.1 10*3/uL 3.6 - 10.7 10*3/uL [facility] CBC WITH AUTO DIFFERENTIALon 03-05-2025 Basophils (Bld) [#/Vol] 0.0 10*3/uL Normal 0.0-0.2 [facility] Comment on above: Performed By: #### L [id number] ####Groover Operator: STEFANIE WARD ([phone])[address] Basophils/100 WBC (Bld) 0.4 % Normal 0.0-2.0 [facility] Comment on above: Performed By: #### L [id number] ####Groover Operator: STEFANIE WARD ([phone])[facility] ([facility])[address] [place] [address] Eosinophils (Bld) [#/Vol] 0.1 10*3/uL Normal 0.0-0.5 [facility] Comment on above: Performed By: #### L [id number] ####Groover Operator: STEFANIE WARD ([phone])[facility])[address] [place] [address] Eosinophils/100 WBC (Bld) 1.7 % Normal 0.0-6.0 [facility] Comment on above: Performed By: #### L [id number] ####Groover Operator: STEFANIE WARD ([phone])[facility])[address] [place] [address] Erythrocyte distribution width (RBC) [Ratio] 13.0 % Normal 11.5-15.0 [facility] Comment on above: Performed By: #### L [id number] ####Groover Operator: STEFANIE WARD ([phone])[facility])[address] [place] [address] Hematocrit (Bld) [Volume fraction] 39.6 % Low 40.0-52.0 [facility] Comment on above: Performed By: #### L [id number] ####Groover Operator: STEFANIE WARD ([id number])[address] Hemoglobin (Bld) [Mass/Vol] 13.3 g/dL Normal 13.0-18.0 [facility] Comment on above: Performed By: #### L [id number] ####Groover Operator: STEFANIE WARD ([id number])[facility])[address] [place] [address] IMMATURE GRANS % 0.2 % Normal 0.0-2.0 [facility] Comment on above: Performed By: #### L [id number] ####Groover Operator: STEFANIE WARD ([id number])[address] IMMATURE GRANS ABSOLUTE 0.0 10*3/uL Normal <0.1 [facility] Comment on above: Performed By: #### L [id number] ####Groover Operator: STEFANIE WARD ([phone])[address] Lymphocytes (Bld) [#/Vol] 1.7 10*3/uL Normal 1.0-4.3 [facility] Comment on above: Performed By: #### L [id number] ####Groover Operator: STEFANIE WARD ([phone])[facility])[address] [place] [address] Lymphocytes/100 WBC (Bld) 20.8 % Normal 15.0-45.0 [facility] Comment on above: Performed By: #### L [id number] ####Groover Operator: STEFANIE WARD ([phone])[facility])[address] [place] [address] MCH (RBC) [Entitic mass] 28.1 pg Normal 26.0-34.0 [facility] Comment on above: Performed By: #### L [id number] ####Groover Operator: STEFANIE WARD ([id number])[facility])[address] [place] [address] MCHC 33.6 % Normal 30.5-36.0 [facility] Comment on above: Performed By: #### L [id number] ####Groover Operator: STEFANIE WARD ([id number])[facility])[address] [place] [address] MCV (RBC) [Entitic vol] 83.7 fL Normal 77.0-99.0 [facility] Comment on above: Performed By: #### L [id number] ####Groover Operator: STEFANIE WARD ([id number])[facility])[address] [place] [address] Monocytes (Bld) [#/Vol] 0.7 10*3/uL Normal 0.0-0.9 [facility] Comment on above: Performed By: #### L [id number] ####Groover Operator: STEFANIE WARD ([id number])[facility])[address] [place] [address] Monocytes/100 WBC (Bld) 8.4 % Normal 5.0-13.0 [facility] Comment on above: Performed By: #### L [id number] ####Groover Operator: STEFANIE WARD ([id number])[facility])[address] [place] [address] NEUTROPHILS ABSOLUTE 5.5 10*3/uL Normal 1.8-7.5 [facility] Comment on above: Performed By: #### L [id number] ####Groover Operator: STEFANIE WARD ([id number])[facility] ([facility])[address] [place] [address] Neutrophils/100 WBC (Bld) 68.5 % Normal 38.0-82.0 [facility] Comment on above: Performed By: #### L [id number] ####Groover Operator: STEFANIE WARD ([phone])[facility] ([facility])[address] [place] [address] NRBC 0.0 /100 WBCs Normal 0.0-2.0 [facility] Comment on above: Performed By: #### L [id number] ####Groover Operator: STEFANIE WARD ([phone])[facility] ([facility])[address] [place] [address] Platelet mean volume (Bld) [Entitic vol] 11.5 fL Normal 9.0-12.7 [facility] Comment on above: Performed By: #### L [id number] ####Groover Operator: STEFANIE WARD ([id number])[facility] ([facility])[address] [place] [address] [place] Platelets (Bld) [#/Vol] 233 10*3/uL Normal 140-440 [facility] Comment on above: Performed By: #### L [id number] ####Groover Operator: STEFANIE WARD ([id number])[facility] ([facility])[address] [place] [address] [place] RBC (Bld) [#/Vol] 4.73 10*6/uL Normal 4.40-5.90 [facility] Comment on above: Performed By: #### L [id number] ####Groover Operator: STEFANIE WARD ([phone])[facility])[address] [place] [address] [place] WBC (Bld) [#/Vol] 8.1 10*3/uL Normal 3.6-10.7 [facility] Comment on above: Performed By: #### L [id number] ####Groover Operator: STEFANIE WARD ([phone])[facility])[address] [place] [address] HEMOGLOBIN A1Con 03-05-2025 Glucose [Mass/Vol] 103 mg/dL Normal [facility] Comment on above: Result Comment: ORDE R COMMENTS: HbA1c values of 5.7-6.4 percent indicate an increased risk for developing diabetes mellitus. HbA1c values greater than or equal to 6.5 percent are diagnostic of diabetes mellitus. For diagnosis of diabetes in individuals without unequivocal hyperglycemia, results should be confirmed by repeat testing. Performed By: #### L [id number] ####Groover Operator: STEFANIE WARD ([phone])[facility])[address] [place] [address] HEMOGLOBIN A1C 5.2 %HbA1C Normal <5.7 [facility] Comment on above: Result Comment: Norm al less than 5.7% Prediabetes 5.7% to 6.4% Diabetes 6.5% or higher --HgbA1C levels may not be accurate in patients who have renal disease, received recent blood transfusions, are anemic, or who have dyshemoglobinemia. Performed By: #### L [id number] ####Groover Operator: STEFANIE WARD ([phone])[address] HIGH SENSITIVITY TROPONIN, S ERIAL BASELINEon 03-05-2025 TROPONIN HS SERIAL BASELINE 120 ng/L High <=35 [facility] Comment on above: Result Comment: In i ndividuals presenting with symptoms > 2h, a baseline troponin <= 5 ng/L suggests acute cardiac injury is unlikely and further serial testing is generally not indicated. Performed By: #### L [id number] ####Groover Operator: STEFANIE WARD ([id number])[facility])[address] [place] [address] LIPID PANELon 03-05-2025 Cholesterol [Mass/Vol] 177 mg/dL Normal <200 [facility] Comment on above: Performed By: #### L AB15, LAB18 ####Groover Operator: STEFANIE WARD ([id number])[facility] [place] [address] [place] Cholesterol in HDL [Mass/Vol] 35 mg/dL Low >=60 [facility] Comment on above: Performed By: #### L AB15, LAB18 ####Groover Operator: STEFANIE WARD ([id number])[facility])[address] [place] [address] Cholesterol.total/Choles terol in HDL [Mass ratio] 5 {ratio} Normal [facility] Comment on above: Result Comment: Ref Range: < 3 Low Risk for CHD 3-6 Mod Risk for CHD > 6 High Risk for CHD Performed By: #### L AB15, LAB18 ####Groover Operator: STEFANIE WARD ([id number])[facility])[address] [place] [address] LOW DENSITY LIPOPROTEIN 133 mg/dL High 0-<100 [facility] Comment on above: Performed By: #### L AB15, LAB18 ####Groover Operator: STEFANIE WARD ([id number])[facility] ([facility])[address] [place] [address] [place] NON-HDL CHOLESTEROL, CALCULATED 142 High <130 [facility] Comment on above: Performed By: #### L AB15, LAB18 ####Groover Operator: STEFANIE WARD ([id number])[facility] [place] [address] [place] Triglyceride [Mass/Vol] 44 mg/dL Normal <150 [facility] Comment on above: Performed By: #### L AB15, LAB18 ####Groover Operator: STEFANIE WARD ([phone])[facility] ([facility])[address] [place] [address] [place] VERY LOW DENSITY LIPOPROTEIN, CALCULATED 9 mg/dL Normal <=30 [facility] Comment on above: Performed By: #### L AB15, LAB18 ####Groover Operator: STEFANIE WARD ([id number])[facility] ([facility])[address] [place] [address] Laboratory - Chemistry and C hemistry - challengeon 03-05-2025 Average glucose Estimated from glycated hemoglobin (Bld) [Mass/Vol] 103 mg/dL [facility] Laboratory - Hematology and Cell countson 03-05-2025 HbA1c (Bld) [Mass fraction] 5.2 % [facility] Comment on above: Normal less than 5.7 % Prediabetes 5.7% to 6.4% Diabetes 6.5% or higher --HgbA1C levels may not be accurate in patients who have renal disease, received recent blood transfusions, are anemic, or who have dyshemoglobinemia. Laboratory - Microbiology an d Antimicrobial susceptibilityOrdered By: Ashley Del Cid on 03-05-2025 Bacteria identified Cx Nom (U) Normal urogenital jess present [facility] Lipid 1996 panelon Cholesterol [Mass/Vol] 177 mg/dL NINF - 200 mg/dL [facility] Cholesterol in HDL [Mass/Vol] 35 mg/dL Low 60 - PINF mg/dL [facility] Cholesterol in LDL [Mass/Vol] 133 mg/dL High 0 - <100 [facility] Cholesterol.total/Choles terol in HDL [Mass ratio] 5 {ratio} [facility] Comment on above: Ref Range: < 3 Low Risk for CHD 3-6 Mod Risk for CHD > 6 High Risk for CHD NON-HDL CHOLESTEROL, CALCULATED 142 High [facility] - 130 [facility] Triglyceride [Mass/Vol] 44 mg/dL [facility] - 150 mg/dL [facility] VERY LOW DENSITY LIPOPROTEIN, CALCULATED 9 mg/dL [facility] - 30 mg/dL [facility] MR Brain WO contraston 03-05 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 Report Dictated on Electronically Signed By: Eliseo Oreilly MD Electronically Signed Date/Time: 03/05/2025 1:26 PM [facility] [employer] RADIOLOGY SYSTEM Patient Name: BRIGHT KEEN : 1970 Exam Date/Time: 03/05/2025 10:01 Procedure: MR BRAIN WO CONTRAST Ordering Provider: BAIRD REBECCA Reason For Exam: stroke MRI BRAIN WITHOUT CONTRAST INDICATIONS: stroke COMPARISON: None TECHNIQUE: Multiplanar, multisequence MRI of the brain was performed without contrast. FINDINGS: Acute Change: Small cortical foci of diffusion restriction along the medial aspects of the right precentral sulcus (5:46), right occipital pole (5:36) and ascending ramus of the left cingulate sulcus (5:47). There is also a tiny focus of diffusion restriction in the right frontal periventricular white matter. No intracranial hemorrhage or mass effect. Mass Lesion: None. Parenchyma: Otherwise, the brain is normal in morphology and signal intensity. Ventricles and sulci: Normal caliber of the ventricles and sulci. Skull base: Normal appearance of the pituitary gland. Normal position of the cerebellar tonsils. Vessels: The major intracranial flow voids are preserved. Extracranial structures: Normal orbits. No extracranial soft tissue abnormalities. Sinuses/mastoids: Clear Bones: No pathologic marrow infiltration. [facility] RADIOLOGY SYSTEM Eliseo Oreilly MD - 03/05/2025 Patient Name: BRIGHT KEEN : 1970 [facility]#: [id number] Exam Date/Time: 03/05/2025 10:01 Procedure: MR BRAIN WO CONTRAST Ordering Provider: BAIRD REBECCA Reason For Exam: stroke MRI BRAIN WITHOUT CONTRAST INDICATIONS: stroke COMPARISON: None TECHNIQUE: Multiplanar, multisequence MRI of the brain was performed without contrast. FINDINGS: Acute Change: Small cortical foci of diffusion restriction along the medial aspects of the right precentral sulcus (5:46), right occipital pole (5:36) and ascending ramus of the left cingulate sulcus (5:47). There is also a tiny focus of diffusion restriction in the right frontal periventricular white matter. No intracranial hemorrhage or mass effect. Mass Lesion: None. Parenchyma: Otherwise, the brain is normal in morphology and signal intensity. Ventricles and sulci: Normal caliber of the ventricles and sulci. Skull base: Normal appearance of the pituitary gland. Normal position of the cerebellar tonsils. Vessels: The major intracranial flow voids are preserved. Extracranial structures: Normal orbits. No extracranial soft tissue abnormalities. Sinuses/mastoids: Clear Bones: No pathologic marrow infiltration. 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 Report Dictated on Electronically Signed By: Eliseo Oreilly MD Electronically Signed Date/Time: 03/05/2025 1:26 PM EDT [facility] Radiology Study observation (narrative) Delilah marino MR Brain WO contrastOrdered By: Eliseo Oreilly on 03-05-2025 [facility] [employer] Work Phone: No Panel Informationon 03-05 Interpretation and review of laboratory results Abnormal [facility] Troponin HS Serial Baseline 120 ng/L High NINF - 35 ng/L [facility] Comment on above: In individuals prese nting with symptoms > 2h, a baseline troponin <= 5 ng/L suggests acute cardiac injury is unlikely and further serial testing is generally not indicated. [facility] HbA1c values of 5.7-6.4 percent indicate an increased risk for developing diabetes mellitus. HbA1c values greater than or equal to 6.5 percent are diagnostic of diabetes mellitus. For diagnosis of diabetes in individuals without unequivocal hyperglycemia, results should be confirmed by repeat testing. [facility] Interpretation and review of laboratory results Abnormal [facility] Progress Noteon 03-05-2025 Progress Note Nutrition Assessment Type and Reason for Visit: Initial (ICU screen) Nutrition Recommendations/Plan : Continue current diet RD signing off, dietitian helper to follow Malnutrition Assessment: Malnutrition Status: No malnutrition Context: Acute Illness Findings of the 6 clinical characteristics of malnutrition: Energy Intake: No significant decrease in energy intake Weight Loss: No significant weight loss Body Fat Loss: No significant body fat loss Muscle Mass Loss: No significant muscle mass loss Fluid Accumulation: No significant fluid accumulation Clinical Program Director Strength: Not Performed Nutrition Assessment: Bright Keen is a 54 yo male with a PMHx of reported hypertension (w/ no official diagnosis) who is admitted to the ICU from OSH for stroke-like symptoms including left upper and lower extremity weakness. Patient developed sudden onset left upper and left lower extremity weakness at approximately 5:50 am today morning, last known well at 5:30am. He developed mild slurring and slowing of speech, drooping of left side of face, left arm drift, and left sides hemiparesis. He was taken to the ED and was rated at a NIHSS of 5 and given TNK at 0723. CTA reported negative, CT wo contrast done at OSH unable to be viewed. Patient states his symptoms dramatically improved after administration of TNK. Patient was then transferred to [facility]. On arrival, NIHSS 0. Patient also states he has had urinary retention and problems with urinary flow since ~6 weeks ago. Reports one month of SOB with exertion. Patient is not on any medications and does not have allergies. He consumes no alcohol, tobacco, or recreational drugs. 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 He does not regularly exercise. Patient on regular diet eating well. Patient denies all nutritional concerns at this time. He reports eating 3 meals a day and no loss of appetite. Denies food allergies and chewing/swallowing difficulties. Patient said he wanted to lose weight and we talked about added sugar, CHO intake and protein. RD signing off, dietitian helper to follow. Estimated Daily Nutrient Needs: Energy Requirements Based On: Kcal/kg Weight Used for Energy Requirements: Admission Weight for Energy Calculation (kg): 123 kg Total Energy Requirements (kcals/day): 0762-4485 Weight Used for Protein Requirements: Admission Weight in Kg Used for Protein Requirements: 123 kg Estimated Total Protein (g/day): 98 Estimated Daily Total Fluid (ml/day): Nutrition Related Findings: , Orientation Level: Oriented X4, Cognition: Appropriate judgement, Appropriate safety awareness, Appropriate attention/concentrat ion, Appropriate for developmental age, Follows commands, Best Verbal Response: Oriented, Teeth: Intact Archie Scale Score: 22. Wound Type: None Net IO Since Admission: 219 mL [03/05/25 1127] Gastrointestinal (WDL): Within Defined Limits Bowel Sounds (All Quadrants): Active Abdomen Inspection: Soft, Rounded Last BM Date: 03/05/25, Stool Appearance: Unable to assess, Stool Color: Unable to assess Edema: , RUE Edema: None, LUE Edema: None, RLE Edema: None, LLE Edema: None Oxygen Therapy: None (Room air), , Labs and meds reviewed: Scheduled: aspirin, 81 mg, Oral, Daily atorvastatin, 40 mg, Oral, Daily clopidogrel, 75 mg, Oral, Daily enoxaparin, 40 mg, SubCUTAneous, Daily mupirocin, 1 Application, Nasal, BID Current Nutrition Therapies: Adult diet Regular Current Oral Intake Average Meal Intake: 76-100% Average Supplements Intake: None Ordered Anthropometric Measures: Current Body Weight: 123 kg (271 lb) Weight Source: Bed Scale Admission Body Weight: 123 kg (271 lb) Weight Adjustment For: No Adjustment Nutrition Diagnosis: No nutrition diagnosis at this time Nutrition Interventions: Nutrition Education/Counseling : No recommendation at this time Coordination of Nutrition Care: No recommendation at this time Nutrition Monitoring and Evaluation: Behavioral-Environme ntal Outcomes: None Identified Food/Nutrient Intake Outcomes: None Identified Physical Signs/Symptoms Outcomes: None Identified Discharge Planning: No discharge needs at this time Pricilla Monge RD Contact: available via [employer] chat or *[phone] [facility] Progress Note ICU Transfer Checklist Transfer Med Reconciliation (resume home meds if able, convert to PO if able) Complete Antibiotics (name, indication, duration, convert to PO if able) None Steroid (indication, duration, convert to PO if able) None Anticipated [place] Medications (ICU initiated) or Dose Changes and Indication Yes, indication stroke - Statin - Likely will need anti-HTN Permanently Discontinued Home Medications and Reason for medication contraindication No Matias Catheter (please remove if able. Note: place DC order) No Central Line (please remove if able. Note: place DC order) No Transfer Discussed with: Dr. Queen, Med team C accepting under Dr. Inman If additional questions for ICU team within 24 hours of ICU transfer, page Chad Ortiz MD for clarifications. [facility] Progress Note Attestation signed by Jadiel Wellington DO at 03/05/2025 3:04 PM I have personally performed a [id number] diagnostic evaluation on this patient on date of service 03/05/25. History, labs, imaging studies, and electronic medical record have been reviewed by me. This note documented by the [x]mixing house operator []DEJA reflects my history, exam, and medical decision making. I have reviewed and agree with the care plan. Changes were made in the orders as necessary. ROS documentation was reviewed and negative unless otherwise stated in HPI. Additional pertinent interval history, ROS, and physical exam findings: No events overnight, doing well. 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 Wellington Subjective: Hospital Summary: Bright Keen is a 54 yo male with a PMHx of reported hypertension (w/ no official diagnosis) who was admitted to the ICU from OSH for stroke-like symptoms including left upper and lower extremity weakness. Patient developed sudden onset left upper and left lower extremity weakness at approximately 5:50 am today morning, last known well at 5:30am. He developed mild slurring and slowing of speech, drooping of left side of face, left arm drift, and left sides hemiparesis. He was taken to the ED and was rated at a NIHSS of 5 and given TNK at 0723. CTA reported negative, CT wo contrast done at OSH unable to be viewed. Patient states his symptoms dramatically improved after administration of TNK. Patient was then transferred to [facility]. On arrival, NIHSS 0. Interval Events: Patient's vitals were stable overnight. No significant overnight events. Patient was examined at bedside and was sitting in his chair about to eat breakfast. He states he was able to ambulate like normal and feels more myself. Scheduled Meds:atorvastatin, 40 mg, Oral, Daily mupirocin, 1 Application, Nasal, BID Continuous Infusions:sodium chloride, 75 mL/hr, Last Rate: Stopped (03/04/25 2200) Objective: Last Vitals: BP MAP 135/89 (03/05/25 0600) 104 (03/05/25 0600) Arterial BP MAP Temp 36.6 ?C (97.9 ?F) (03/05/25 0400) Pulse 71 (03/05/25 06) Resp 13 (03/05/25599) SpO2 96 % (03/05/25599) Weight 123 kg (271 lb 13.2 oz) (03/05/25 0000) BMI There is no height or weight on file to calculate BMI. I/O: 03/04 700 - 03/05 659 In: 1694 [P.O.:940; I.V.:754] Out: 1475 [Urine:1475] Ventilator: Oxygen Delivery: Invasive Lines / Tubes / Drains: Peripheral IV Left Hand (Active) Number of days: Peripheral IV 03/04/25 Anterior;Distal;Righ t;Upper Arm (Active) Number of days: 0 Central Line Indication: NA - patient does not have a central line Matias Indications: NA - patient does not have a Matias catheter Restraints: NA - patient is not restrained. Wounds: Constitutional: General Appearance [x]WDWN [x]Obese []Cachectic []Thin []Ill Eyes: Inspection of Pupils/Irises Pupils round and react: [x]Yes []No Sclera: []Icteric []Non-Icteric Inspection of Conjunctiva/Lids Conjunctiva: []Injected [x]Non-Injected Lids: []Intact []Lesion Present ENT/Mouth: External Inspection of ears/nose [] Normal [] Scar/Lesion/Mass Inspection of teeth/lips/gums Dentition: []Ione Teeth []Dentures Lips/Gums: []Intact []Lesion Present Mucosa: [][place] []Moist []Dry Neck: External Appearance Overall Appearance: []Normal []Lesion/Mass/Crepit us Present Trachea midline: []Yes []No Thyroid []Normal []Enlarged []Tender []Mass []Absent Respiratory: Respiratory effort []Labored [x]Non-Labored [] Mechanically-Ventila arsen Auscultation [x]Clear []Crackles []Wheezes []Rhonchi Cardiovascular: Auscultation Rate: [x]Regular []Irregular []Tachycardia []Bradycardia Rhythm: [x]Regular []Irregular Murmur: []Present []Absent Extremities Peripheral Edema: []Present [x]Absent Varicosities: []Present []Absent Gastrointestinal: Abdomen Palpation: []Soft []Firm []Tender []Non-Tender []Distended []Non-distended Mass: []Present []Absent Bowel Sounds: []Present []Absent Hernia: []Present []Absent Liver/Spleen: []Hepatosplenomegaly []Organomegaly Absent Musculoskeletal: Inspection of Digits and Nails Cyanosis: []Present []Absent Clubbing: []Present []Absent Ischemia: []Present []Absent Infection: []Present []Absent Extremities HENDERSON Equally: Except ([]RUE []RLE []LUE []LLE) Strength/Tone: Intact and Normal ([x]RUE [x]RLE [x]LUE [x]LLE) Skin: Inspection [x]Normal []Rash []Lesion []Ulcer Palpation []Warm []Cool []Dry []Clammy [ (more content not included)... Normal [facility] [employer] [facility] US Heart TransthoracicOrdere d By: Hilario Perez on 03-05-2025 Aortic Arch 3.3 cm [email or web address] Phone: Aortic Sinus Valsalva 3.9 cm Sum mo [employer] Phone: Aortic Sinus Valsalva Index 1.65 cm/m2 [email or web address] Phone: Aortic valve Mean systole pressure gradient by US.doppler derived full Bernoulli 53 mmHg [facility] [employer] Phone: Aortic valve Orifice area by US 4.2 cm2 [facility] [employer] Phone: Aortic valve Peak systolic flow by US.doppler 3.5 m/s [email or web address] Phone: Ascending Aorta 3.2 cm [facility] [place] [employer] Work Phone: Ascending Aorta Index 1.35 cm/m2 Sum mo [employer] Phone: AV Area by Peak Velocity 0.9 cm2 [facility] Phone: AV Area by VTI 1 cm2 [facility] Work Phone: AV AT 68.51 ms [facility] Work Phone: AV Peak Gradient 84 mmHg [facility] Work Phone: AV Peak Velocity 4.6 m/s [facility] Work Phone: AV Velocity Ratio 0.22 [facility] Work Phone: AV VTI 96.7 cm [facility] Work Phone: LITO/BSA Peak Velocity 0.4 cm2/m2 [facility] Work Phone: LITO/BSA VTI 0.4 cm2/m2 [facility] Work Phone: E/E' Lateral 7.73 [facility] Work Phone: E/E' Ratio (Averaged) 9.94 [facility] Work Phone: E/E' Septal 12.14 [facility] Work Phone: Est. RA Pressure 3 mmHg [facility] Work Phone: Fractional Shortening 2D 20 % 28 - 44 % [facility] Work Phone: Global Longitudinal Strain -14.7 % [facility] Work Phone: Interpretation and review of laboratory results Abnormal [facility] Work Phone: IVC Diameter 2 cm [facility] Work Phone: IVSd 1.5 cm Abnormal 0.6 - 1.0 cm [facility] Work Phone: LA Diameter 5 cm [facility] Work Phone: LA Size Index 2.11 cm/m2 [facility] Work Phone: LA Volume 4C 86 mL Abnormal 18 - 58 mL [facility] Work Phone: LA Volume Index 4C 36 mL/m2 Abnormal 16 - 34 mL/m2 [facility] Work Phone: Left ventricular Ejection fraction by US.2D+Calculated by biplane method of disks 66 % 55 - 100 % [facility] Work Phone: LV E' Lateral Velocity 11 cm/s [place] [facility] Work Phone: LV E' Septal Velocity 7 cm/s [facility] Work Phone: LV EDV A2C 89 mL [facility] Work Phone: LV EDV A4C 126 mL [facility] Work Phone: LV EDV BP 103 mL 67 - 155 mL [facility] Work Phone: LV EDV Index A2C 38 mL/m2 [facility] Work Phone: LV EDV Index A4C 53 mL/m2 [facility] Work Phone: LV EDV Index BP 43 mL/m2 [facility] Work Phone: LV Ejection Fraction A2C 51 % [facility] Work Phone: LV Ejection Fraction A4C 77 % [facility] Work Phone: LV ESV A2C 43 mL [facility] Work Phone: LV ESV A4C 29 mL [facility] Work Phone: LV ESV BP 36 mL 22 - 58 mL [facility] Work Phone: LV ESV Index A2C 18 mL/m2 [facility] Work Phone: LV ESV Index A4C 12 mL/m2 [facility] Work Phone: LV ESV Index BP 15 mL/m2 [facility] Work Phone: LV Mass 2D 266.9 g Abnormal 88 - 224 g [facility] Work Phone: LV Mass 2D Index 112.6 g/m2 49 - 115 g/m2 [facility] [employer] Work Phone: LV RWT Ratio 0.83 [facility] Work Phone: LVIDd 4.1 cm Abnormal 4.2 - 5.9 cm [facility] Work Phone: LVIDd Index 1.73 cm/m2 [facility] [employer] Work Phone: LVIDs 3.3 cm [facility] Work Phone: LVIDs Index 1.39 cm/m2 [facility] [employer] Work Phone: LVOT Cardiac Output 7.4 liter/minute [facility] Work Phone: LVOT Diameter 2.3 cm [facility] Work Phone: LVOT Mean Gradient 3 mmHg [facility] [employer] Work Phone: LVOT Peak Gradient 4 mmHg [facility] [employer] Work Phone: LVOT Peak Velocity 1 m/s [facility] [employer] Work Phone: LVOT Stroke Volume Index 42.4 mL/m2 [facility] [employer] Work Phone: LVOT SV 100.5 ml [facility] [employer] Work Phone: LVOT VTI 24.2 cm [facility] [employer] Work Phone: LVOT:AV VTI Index 0.25 [facility] Work Phone: LVPWd 1.7 cm Abnormal 0.6 - 1.0 cm [facility] Work Phone: MV A Velocity 0.4 m/s [facility] Work Phone: MV E Velocity 0.85 m/s [facility] Work Phone: MV E Wave Deceleration Time 181 ms [facility] [employer] Work Phone: MV E/A 2.13 [facility] Work Phone: RA Area 4C 95.8 mL [facility] Work Phone: RA Area 4C 91.9 mL [facility] Work Phone: RV Basal Dimension 4.1 cm [facility] Work Phone: RV Free Wall Peak S' 21 cm/s [facility] Work Phone: RV Longitudinal Dimension 10.4 cm [facility] Work Phone: RV Mid Dimension 2.6 cm [facility] Work Phone: RVSP 13 mmHg [facility] Work Phone: Sinotubular Junction 3.2 cm [facility] Work Phone: TAPSE 3.1 cm 1.7 cm [facility] Work Phone: TR Max Velocity 1.58 m/s [facility] Work Phone: TR Peak Gradient 10 mmHg [facility] Work Phone: [facility] Work Phone: Heart Transthoracicon Left Ventricle: Left ventricle size is normal. Moderately increased wall thickness. Normal left ventricular systolic function. The EF by visual approximation is 55%. Global longitudinal strain is -14.7%. Normal wall motion. Right Ventricle: Right ventricle size is normal. Normal systolic function. Aortic Valve: Trileaflet. Moderately thickened cusps. Severely calcified cusps. Trace regurgitation. Severe stenosis of the aortic valve. AV mean gradient is 53 mmHg. AV peak gradient is 84 mmHg. AV peak velocity is 4.6 m/s. LVOT:AV VTI Index is 0.25. AV area by continuity VTI is 1.0 cm2. Left Atrium: Left atrium is moderately dilated. Right Atrium: Right atrium is moderately dilated. Left Ventricle Left ventricle size is normal. Moderately increased wall thickness. Normal left ventricular systolic function. The EF by visual approximation is 55%. Global longitudinal strain is -14.7%. Normal wall motion. Right Ventricle Right ventricle size is normal. Normal systolic function. Left Atrium Left atrium is moderately dilated. Right Atrium Right atrium is moderately dilated. IVC/SVC IVC diameter is normal and decreases greater than 50% during inspiration; therefore the estimated right atrial pressure is normal (~3 mmHg). Mitral Valve Valve structure is normal. Trace regurgitation. No stenosis noted. Tricuspid Valve Valve structure is normal. Trace regurgitation. Unable to assess RVSP due to insignificant tricuspid regurgitation. Aortic Valve Trileaflet. Moderately thickened cusps. Severely calcified cusps. Trace regurgitation. Severe stenosis of the aortic valve. AV mean gradient is 53 mmHg. AV peak gradient is 84 mmHg. AV peak velocity is 4.6 m/s. LVOT:AV VTI Index is 0.25. AV area by continuity VTI is 1.0 cm2. Pulmonic Valve The pulmonic valve visualization is suboptimal but appears to be functioning normally. Trace regurgitation. Ascending Aorta Normal sized sinuses of Valsalva and ascending aorta. Pericardium No pericardial effusion. Septum No interatrial shunt visualized on color Doppler. Study Details Image quality: adequate. Additional technique includes myocardial strain. Heart rate: 80 bpm. Blood pressure: 124/80 mmHg. Technical qualifiers: Technically difficult study due to patient's body habitus. No contrast was given. Comparison Study There is no prior study available for comparison CV CPACS ABO and Rh group Confirm Nom (Bld)on 03-04-2025 ABO group Nom (Bld) A [facility] [employer] D Ag Ql (RBC) Positive [facility] APTTon 03-04-2025 aPTT Coag (Bld) [Time] 31.1 s Normal 25.4 - 38.4 J [facility] Comment on above: Performed By: #### 2 [id number] #### [facility],[address] [place] [address] BLOOD TYPE AND SCREEN GELon 03-04-2025 ABO GROUPING A Normal [facility] Comment on above: Performed By: #### L [id number] ####Groover Operator: STEFANIE WARD ([phone])[facility] ([facility])[address] [place] [address] RH TYPE IN BLOOD Positive Normal [facility] Comment on above: Performed By: #### L [id number] ####Groover Operator: STEFANIE WARD ([id number])[facility] ([facility])[address] [place] [address] Blood type and Crossmatch jose mcarthur (Bld)on 03-04-2025 ABO group Nom (Bld) A [facility] [employer] Blood group antibody screen GEL Ql Negative [facility] [employer] D Ag Ql (RBC) Positive [facility] CBC + DIFFon 03-04-2025 Baso # 0.02 x10EE3/UL Normal 0.00 - 0.10 [facility] Comment on above: Performed By: #### 2 [id number] #### [facility],[address] [place] [address] 20085 Basophils/100 WBC (Bld) 0.3 % Normal 0.0 - 2.0 [facility] Comment on above: Performed By: #### 2 20140 #### [facility],[address] [place] [address] CBC + DIFF Normal [facility] Comment on above: Result Comment: CBC- COMPLETE BLOOD COUNT Performed By: #### 2 [id number] #### [facility],[address] [place] [address] EO # 0.25 x10EE3/UL Normal 0.00 - 0.50 [facility] Comment on above: Performed By: #### 2 55485 #### [facility],[address] [place] [address] 16629 Eosinophils/100 WBC (Bld) 3.8 % Normal 0.0 - 7.0 [facility] Comment on above: Performed By: #### 2 76951 #### [facility],[address] [place], [place] [id number] Erythrocyte distribution width (RBC) [Ratio] 13.7 % Normal 12.0 - 15.6 [facility] Comment on above: Performed By: #### 2 13749 #### [facility],[address] [place] [address] Hematocrit (Bld) [Volume fraction] 44.0 % Normal 40.0 - 52.0 [facility] Comment on above: Performed By: #### 2 28103 #### [facility],[address] [place] [address] Hemoglobin (Bld) [Mass/Vol] 15.3 g/dL Normal 13.0 - 17.5 [facility] Comment on above: Performed By: #### 2 76736 #### [facility],[address] [place] [address] Lymph # 2.68 x10EE3/UL Normal 0.80 - 2.80 [facility] Comment on above: Performed By: #### 2 12003 #### [facility],[address] [place] [address] Lymphocytes/100 WBC (Bld) 40.2 % Normal 20.0 - 45.0 [facility] Comment on above: Performed By: #### 2 83558 #### [facility],[address] [place], [place] [id number] MANUAL DIFF N/A Normal [facility] Comment on above: Performed By: #### 2 47133 #### [facility],[address] [place], [place] [id number] MCH (RBC) [Entitic mass] 30 pg Normal 27 - 33 [facility] Comment on above: Performed By: #### 2 22568 #### [facility],[address] [place], [place] [id number] MCHC 35 X10 3 Normal 32 - 36 [facility] Comment on above: Performed By: #### 2 73349 #### [facility],[address] [place], [place] [id number] MCV (RBC) [Entitic vol] 85 fL Normal 81 - 98 [facility] Comment on above: Performed By: #### 2 11175 #### [facility],[address] [place] [address] Wheeler # 0.52 x10EE3/UL Normal 0.20 - 1.00 [facility] Comment on above: Performed By: #### 2 00888 #### [address] [address] MONOS % 7.7 % Normal 0.0 - 10.0 [facility] Comment on above: Performed By: #### 2 21345 #### [facility],[address] [place] [address] Morphology Adelso (Bld) [Interp] N/A Normal [facility] Comment on above: Performed By: #### 2 84939 #### [facility],[address] [place] [address] Neut # 3.19 x10EE3/UL Normal 1.50 - 7.10 [facility] Comment on above: Performed By: #### 2 03519 #### [place] [address] Neutrophils/100 WBC (Bld) 48.0 % Normal 46.0 - 76.0 [facility] Comment on above: Performed By: #### 2 78175 #### [facility],[address] [place] [address] PLATELET 240 x10EE3/UL Normal 150 - 450 [facility] Comment on above: Performed By: #### 2 79517 #### [place] [address] Platelet mean volume (Bld) [Entitic vol] 8.7 fL Normal 6.4 - 10.5 [facility] Comment on above: Result Comment: AUTO MATED DIFFERENTIAL Performed By: #### 2 31651 #### [place] [address] RBC 5.16 x 10EE6/UL Normal 4.50 - 6.00 [facility] Comment on above: Performed By: #### 2 52706 #### [facility],[address] [place] [address] WBC 6.7 x 10EE3/UL Normal 4.5 - 10.8 [facility] Comment on above: Performed By: #### 2 64896 #### [facility],[address] [place] [address]309 CBC W Auto Differential pane l (Bld)on 03-04-2025 Basophils (Bld) [#/Vol] 0 10*3/uL 0.0 - 0.2 10*3/uL [facility] Basophils/100 WBC (Bld) 0.4 % 0.0 - 2.0 % [facility] Eosinophils (Bld) [#/Vol] 0 10*3/uL 0.0 - 0.5 10*3/uL [facility] Eosinophils/100 WBC (Bld) 0.4 % 0.0 - 6.0 % [facility] Erythrocyte distribution width (RBC) [Ratio] 12.9 % 11.5 - 15.0 % [facility] Hematocrit (Bld) [Volume fraction] 41.9 % 40.0 - 52.0 % [facility] Hemoglobin (Bld) [Mass/Vol] 14 g/dL 13.0 - 18.0 g/dL [facility] Immature granulocytes (Bld) [#/Vol] 0 10*3/uL NINF - 0.1 10*3/uL [facility] Immature granulocytes/100 WBC (Bld) 0.4 % 0.0 - 2.0 % [facility] Interpretation and review of laboratory results Abnormal [facility] Lymphocytes (Bld) [#/Vol] 0.9 10*3/uL Low 1.0 - 4.3 10*3/uL [facility] Lymphocytes/100 WBC (Bld) 10.8 % Low 15.0 - 45.0 % [facility] MCH (RBC) [Entitic mass] 28.7 pg 26. 0 - 34.0 pg [facility] MCHC (RBC) [Mass/Vol] 33.4 % 30.5 - 36.0 % [facility] MCV (RBC) [Entitic vol] 85.9 fL 77.0 - 99.0 fL [facility] Monocytes (Bld) [#/Vol] 0.5 10*3/uL 0.0 - 0.9 10*3/uL [facility] Monocytes/100 WBC (Bld) 6.5 % 5.0 - 13.0 % [facility] Neutrophils (Bld) [#/Vol] 6.5 10*3/uL 1.8 - 7.5 10*3/uL [facility] Neutrophils/100 WBC (Bld) 81.5 % 38.0 - 82.0 % [facility] Nucleated RBC/100 WBC (Bld) [Ratio] 0 % [facility] Platelet mean volume (Bld) [Entitic vol] 11.1 fL 9.0 - 12.7 fL [facility] Platelets (Bld) [#/Vol] 225 10*3/uL 140 - 440 10*3/uL [facility] RBC (Bld) [#/Vol] 4.88 10*6/uL 4.40 - 5.9 0 10*6/uL [facility] WBC (Bld) [#/Vol] 8 10*3/uL 3.6 - 10.7 10*3/uL [facility] CBC WITH AUTO DIFFERENTIALon 03-04-2025 Basophils (Bld) [#/Vol] 0.0 10*3/uL Normal 0.0-0.2 [facility] Comment on above: Performed By: #### L [id number] ####Groover Operator: STEFANIE WARD ([phone])[facility])[address] [place] [address] Basophils/100 WBC (Bld) 0.4 % Normal 0.0-2.0 [facility] Comment on above: Performed By: #### L [id number] ####Groover Operator: STEFANIE WARD ([id number])[facility] ([facility])[address] [place] [address] [place] Eosinophils (Bld) [#/Vol] 0.0 10*3/uL Normal 0.0-0.5 [facility] Comment on above: Performed By: #### L [id number] ####Groover Operator: STEFANIE WARD ([phone])[facility] ([facility])[address] [place] [address] [place] Eosinophils/100 WBC (Bld) 0.4 % Normal 0.0-6.0 [facility] Comment on above: Performed By: #### L [id number] ####Groover Operator: STEFANIE WARD ([phone])[address] Erythrocyte distribution width (RBC) [Ratio] 12.9 % Normal 11.5-15.0 [facility] Comment on above: Performed By: #### L [id number] ####Groover Operator: STEFANIE WARD ([phone])[address] Hematocrit (Bld) [Volume fraction] 41.9 % Normal 40.0-52.0 [facility] Comment on above: Performed By: #### L [id number] ####Groover Operator: STEFANIE WARD ([phone])[address] Hemoglobin (Bld) [Mass/Vol] 14.0 g/dL Normal 13.0-18.0 [facility] Comment on above: Performed By: #### L [id number] ####Groover Operator: STEFANIE WARD ([phone])[address] IMMATURE GRANS % 0.4 % Normal 0.0-2.0 [facility] Comment on above: Performed By: #### L [id number] ####Groover Operator: STEFANIE WARD ([phone])[address] IMMATURE GRANS ABSOLUTE 0.0 10*3/uL Normal <0.1 [facility] Comment on above: Performed By: #### L [id number] ####Groover Operator: STEFANIE WARD ([phone])[address] Lymphocytes (Bld) [#/Vol] 0.9 10*3/uL Low 1.0-4.3 [facility] Comment on above: Performed By: #### L [id number] ####Groover Operator: STEFANIE WARD ([phone])[facility])[address] [place] [address] Lymphocytes/100 WBC (Bld) 10.8 % Low 15.0-45.0 [facility] Comment on above: Performed By: #### L [id number] ####Groover Operator: STEFANIE WARD ([phone])[facility])[address] [place] [address] MCH (RBC) [Entitic mass] 28.7 pg Normal 26.0-34.0 [facility] Comment on above: Performed By: #### L [id number] ####Groover Operator: STEFANIE WARD ([phone])[facility])[address] [place] [address] MCHC 33.4 % Normal 30.5-36.0 [facility] Comment on above: Performed By: #### L [id number] ####Groover Operator: STEFANIE WARD ([phone])[facility])[address] [place] [address] MCV (RBC) [Entitic vol] 85.9 fL Normal 77.0-99.0 [facility] Comment on above: Performed By: #### L [id number] ####Groover Operator: STEFANIE WARD ([phone])[facility])[address] [place] [address] Monocytes (Bld) [#/Vol] 0.5 10*3/uL Normal 0.0-0.9 [facility] Comment on above: Performed By: #### L [id number] ####Groover Operator: STEFANIE WARD ([phone])[facility])[address] [place] [address] Monocytes/100 WBC (Bld) 6.5 % Normal 5.0-13.0 [facility] Comment on above: Performed By: #### L [id number] ####Groover Operator: STEFANIE WARD ([phone])[facility])[address] [place] [address] NEUTROPHILS ABSOLUTE 6.5 10*3/uL Normal 1.8-7.5 [facility] Comment on above: Performed By: #### L [id number] ####Groover Operator: STEFANIE WARD ([phone])[facility] ([facility])[address] [place] [address] Neutrophils/100 WBC (Bld) 81.5 % Normal 38.0-82.0 [facility] Comment on above: Performed By: #### L [id number] ####Groover Operator: STEFANIE WARD ([phone])[facility] ([facility])[address] [place] [address] NRBC 0.0 /100 WBCs Normal 0.0-2.0 [facility] Comment on above: Performed By: #### L [id number] ####Groover Operator: STEFANIE WARD ([phone])[facility] ([facility])[address] [place] [address] Platelet mean volume (Bld) [Entitic vol] 11.1 fL Normal 9.0-12.7 [facility] Comment on above: Performed By: #### L [id number] ####Groover Operator: STEFANIE WARD ([phone])[facility] ([facility])[address] [place] [address] [place] Platelets (Bld) [#/Vol] 225 10*3/uL Normal 140-440 [facility] Comment on above: Performed By: #### L [id number] ####Groover Operator: STEFANIE WARD ([phone])[facility] ([facility])[address] [place] [address] [place] RBC (Bld) [#/Vol] 4.88 10*6/uL Normal 4.40-5.90 [facility] Comment on above: Performed By: #### L [id number] ####Groover Operator: STEFANIE WARD ([phone])[facility] ([facility])[address] [place] [address] [place] WBC (Bld) [#/Vol] 8.0 10*3/uL Normal 3.6-10.7 [facility] Comment on above: Performed By: #### L [id number] ####Groover Operator: STEFANIE WARD ([phone])[facility] ([facility] CHEST 1 VIEWon 03-04-2025 CHEST 1 VIEW [place] [address] Patient: BRIGHT KEEN Phone#: : [phone] Age: 54 Gender: M Pt. Type: ER Account: [id number] Location: [facility] Ordering: CHAD ROSS Exam Date: 03/04/2025/7:07 Family Phys: Charge Code: [id number] Physician: [place] Order #: [id number] Dose#: PROCEDURE: X-RAY CHEST 1 VIEW COMPARISON: [facility], XR, CHEST 1 VIEW, 06/23/2020, 16:10. INDICATIONS: Stroke . FINDINGS: LUNGS: Chronic interstitial changes. No significant pulmonary parenchymal abnormalities. VASCULATURE: Normal. Unremarkable pulmonary vasculature. CARDIAC: Cardiomegaly MEDIASTINUM: Normal. No visible mass or adenopathy. PLEURA: Normal. No effusion or pleural thickening. BONES: Degenerative changes of the spine OTHER: Monitoring leads project across the thorax CONCLUSION: 1. Cardiomegaly Dictated by: Suzette Harman MD on 03/04/2025 at 8:27 Approved by: Suzette Harman MD on 03/04/2025 at 8:30 Normal [facility] CMP with eGFRon 03-04-2025 AGE 54 years Normal [facility] Comment on above: Performed By: #### 2 [id number] #### [facility],[address] [place] [address] Albumin [Mass/Vol] 4.0 g/dL Normal 3.4 - 5.0 [facility] Comment on above: Performed By: #### 2 [id number] #### [facility],[address] [place] [address] Albumin/Globulin [Mass ratio] 1.1 {ratio} Normal 0.9 - 1.6 [facility] Comment on above: Performed By: #### 2 [id number] #### [facility],[address] [place] [address] ALK PHOS 54 U/L Normal 46 - 116 [facility] Comment on above: Performed By: #### 2 [id number] #### [facility],[address] [place] [address]39 ALT [Catalytic activity/Vol] 39 U/L Normal 16 - 63 [facility] Comment on above: Performed By: #### 2 37069 #### [facility],[address] [place] [address] Anion gap [Moles/Vol] 13 mmol/L Normal 10 - 20 [facility] Comment on above: Performed By: #### 2 [id number] #### [facility],[address] [place] [address] 71504 AST [Catalytic activity/Vol] 28 U/L Normal 15 - 37 [facility] Comment on above: Performed By: #### 2 72260 #### [facility],[address] [place] [address] 69381 B/C RATIO 18 ratio Normal 0 - 30 [facility] Comment on above: Performed By: #### 2 98398 #### [facility],[address] [place] [address] 75840 Bilirubin [Mass/Vol] 1.6 mg/dL High 0.2 - 1.0 [facility] Comment on above: Performed By: #### 2 17265 #### [facility],[address] [place] [address] 18135 Calcium [Mass/Vol] 8.8 mg/dL Normal 8.5 - 10.1 [facility] Comment on above: Performed By: #### 2 11777 #### [facility],[address] [place] [address] 40512 Chloride [Moles/Vol] 104 mmol/L Normal 98 - 107 [facility] Comment on above: Performed By: #### 2 08967 #### [facility],[address] [place] [address] CMP with eGFR Normal [facility] Comment on above: Result Comment: COMP REHENSIVE METABOLIC PANEL Performed By: #### 2 02811 #### [facility],[address] [place] [address] CO2 [Moles/Vol] 26.7 mmol/L Normal 21.0 - 32.0 [facility] Comment on above: Performed By: #### 2 31083 #### [facility],[address] [place] [address] Creatinine [Mass/Vol] 0.98 mg/dL Normal 0.70 - 1.30 [facility] Comment on above: Performed By: #### 2 39257 #### [facility],[address] [place] [address] GFR/1.73 sq M.predicted among non-blacks MDRD (S/P/Bld) [Vol rate/Area] mL/min/{1.73_m2} Normal 60 - 999 [facility] Comment on above: Performed By: #### 2 06089 #### [facility],[address] [place] [address] Result Comment: ACCO RDING TO THE NATIONAL KIDNEY DISEASE EDUCATION PROGRAM(NKDE), A NORMAL eGFR IS A VALUE GREATER THAN OR EQUAL TO 60 ML/MIN/1.73 SQ METERS. CHRONIC KIDNEY DISEASE: <60mL/MIN/1.73 SQ METERS KIDNEY FAILURE: <15mL/MIN/1.73 SQ METERS THIS TEST SHOULD ONLY BE USED FOR PATIENTS 18 YEARS OF AGE AND OLDER. Globulin (S) [Mass/Vol] 3.5 g/dL Normal 1.5 - 3.8 [facility] Comment on above: Performed By: #### 2 90340 #### [facility],[address],[place] [address] Glucose [Mass/Vol] 106 mg/dL Normal 74 - 106 [facility] Comment on above: Performed By: #### 2 98891 #### [facility],[address] [place], [place] [id number] Potassium [Moles/Vol] 3.9 mmol/L Normal 3.5 - 5.1 [facility] Comment on above: Performed By: #### 2 22472 #### [facility],[address] [place] [address] 35213 Protein [Mass/Vol] 7.5 g/dL Normal 6.4 - 8.2 [facility] Comment on above: Performed By: #### 2 66569 #### [facility],[address] [place], [place] [id number] Sodium [Moles/Vol] 140 mmol/L Normal 136 - 145 [facility] Comment on above: Performed By: #### 2 69814 #### [facility],[address] [place], [place] [id number] Urea nitrogen [Mass/Vol] 18 mg/dL Normal 7 - 18 [facility] Comment on above: Performed By: #### 2 51164 #### [facility],[address] [place] [address] 43915 COMPLETE URINALYSISon 2024 BACTERIA (#/HPF) IN URINE Negative Normal Negative [facility] Comment on above: Performed By: #### L [id number] ####Groover Operator: STEFANIE WARD ([phone])[facility] ([facility])[address] [place] [address] [place] BILIRUBIN, TOTAL PRESENCE IN URINE Negative Normal Negative [facility] Comment on above: Performed By: #### L AB347 ####Groover Operator: STEFANIE WARD ([phone])[facility] ([facility])[address] [place] [address] [place] Clarity (U) Clear Normal Clear [facility] [employer] [facility] Comment on above: Performed By: #### L AB347 ####Groover Operator: STEFANIE WARD ([phone])[facility] ([facility])[address] [place] [address] Color (U) Light Yellow Normal Lt. Yellow [facility] Comment on above: Performed By: #### L AB347 ####Groover Operator: STEFANIE WARD ([phone])[facility] [place] [address] GLUCOSE (MG/DL) IN URINE Normal Normal Normal (<70 ) [facility] Comment on above: Performed By: #### L AB347 ####Groover Operator: STEFANIE WARD ([phone])[facility] ([facility])[address] [place] [address] HEMOGLOBIN PRESENCE IN URINE Negative Normal Negative [facility] Comment on above: Performed By: #### L AB347 ####Groover Operator: STEFANIE WARD ([phone])[facility] ([facility] [place] [address] Ketones Ql (U) 20 mg/dL Abnormal Negative [facility] Comment on above: Performed By: #### L AB347 ####Groover Operator: STEFANIE WARD ([phone])[facility] ([facility])[address] [place] [address] LEUKOCYTE ESTERASE PRESENCE IN URINE BY TEST STRIP Negative Normal Negative [facility] Comment on above: Performed By: #### L AB347 ####Groover Operator: STEFANIE WARD ([phone])[facility] ([facility])[address] [place] [address] [place] MUCUS (#/LPF) IN URINE SEDIMENT Few Normal Negative [facility] Comment on above: Performed By: #### L AB347 ####Groover Operator: STEFANIE WARD ([phone])[facility] ([facility])[address] [place] [address] NITRITE PRESENCE IN URINE Negative Normal Negative [facility] Comment on above: Performed By: #### L AB347 ####Groover Operator: STEFANIE WARD ([phone])[facility] ([facility])[address] [place] [address] pH (U) 5.5 [pH] Normal 5.0-8.0 [facility] Comment on above: Performed By: #### L AB347 ####Groover Operator: STEFANIE WARD ([phone])[facility] ([facility])[address] [place] [address] Protein (U) [Mass/Vol] 10 mg/dL Abnormal Negative [facility] Comment on above: Performed By: #### L AB347 ####Groover Operator: STEFANIE WARD ([phone])[facility] ([facility])[address] [place] [address] RBC (#/HPF) IN URINE SEDIMENT Negative Normal 0-2 [facility] Comment on above: Performed By: #### L AB347 ####Groover Operator: STEFANIE WARD ([phone])[facility] ([facility])[address] [place] [address] Specific gravity (U) [Rel density] >1.030 High 1.005-1.030 [facility] Comment on above: Performed By: #### L AB347 ####Groover Operator: STEFANIE WARD ([phone])[facility] ([facility])[address] [place] [address] SQUAMOUS EPITHELIAL CELLS (#/HPF) IN URINE SEDIMENT 0-2 Normal 3-5 [facility] Comment on above: Performed By: #### L [id number] ####Groover Operator: STEFANIE WARD ([phone])[facility] ([facility])[address] [place] [address] UROBILINOGEN (MG/DL) IN URINE Normal Normal Normal (0-1) [facility] Comment on above: Performed By: #### L [id number] ####Groover Operator: STEFANIE WARD ([phone])[facility])[address] [place] [address] WBC (LEUKOCYTE) (#/HPF) IN URINE SEDIMENT 0-2 Normal 0-5 [facility] Comment on above: Performed By: #### L [id number] ####Groover Operator: STEFANIE WARD ([phone])[facility] ([facility])[address] [place] [address] COMPREHENSIVE METABOLIC PANE Navneet 03-04-2025 Albumin [Mass/Vol] 4.0 g/dL Normal 3.5-5.0 [facility] Comment on above: Performed By: #### L AB17 ####Groover Operator: STEFANIE WARD ([phone])[facility] ([facility])[address] [place] [address] ALP [Catalytic activity/Vol] 45 U/L Normal 40-150 [facility] Comment on above: Performed By: #### L AB17 ####Groover Operator: STEFANIE WARD ([phone])[facility] ([facility])[address] [place] [address] ALT [Catalytic activity/Vol] 30 U/L Normal <40 [facility] Comment on above: Performed By: #### L AB17 ####Groover Operator: STEFANIE WARD ([phone])[facility] ([facility])[address] [place] [address] Anion gap [Moles/Vol] 5 mmol/L Normal 3-13 [facility] Comment on above: Performed By: #### L AB17 ####Groover Operator: STEFANIE WARD ([phone])[facility] ([facility])[address] [place] [address] AST [Catalytic activity/Vol] 30 U/L Normal <34 [facility] Comment on above: Performed By: #### L AB17 ####Groover Operator: STEFANIE WARD ([phone])[facility] ([facility])[address] [place] [address] Bilirubin [Mass/Vol] 1.4 mg/dL High <1.2 [facility] Comment on above: Performed By: #### L AB17 ####Groover Operator: STEFANIE WARD ([phone])[facility] ([facility])[address] [place] [address] [place] Calcium [Mass/Vol] 9.0 mg/dL Normal 8.4-10.2 [facility] Comment on above: Performed By: #### L AB17 ####Groover Operator: STEFANIE WARD ([phone])[facility] ([facility])[address] [place] [address] Chloride [Moles/Vol] 110 mmol/L High 98-107 [facility] Comment on above: Performed By: #### L AB17 ####Groover Operator: STEFANIE WARD ([phone])[facility] ([facility])[address] [place] [address] CO2 [Moles/Vol] 23 mmol/L Normal 22-29 [facility] Comment on above: Performed By: #### L AB17 ####Groover Operator: STEFANIE WARD ([phone])[facility] ([facility])[address] [place] [address] Creatinine [Mass/Vol] 0.86 mg/dL Normal 0.72-1.25 [facility] Comment on above: Performed By: #### L AB17 ####Groover Operator: STEFANIE WARD ([phone])[facility] ([facility])[address] [place] [address] GLOMERULAR FILTRATION RATE ML/MIN/1.73 SQ M.PREDICTED >90.0 Normal >60.0 [facility] Comment on above: Result Comment: Calc ulation based on the Chronic Kidney Disease Epidemiology Collaboration (CKD-EPI) equation refit without adjustment for race Performed By: #### L AB17 ####Groover Operator: STEFANIE WARD ([phone])[facility] ([facility])[address] [place] [address] [place] Glucose [Mass/Vol] 94 mg/dL Normal 74-100 [facility] Comment on above: Performed By: #### L AB17 ####Groover Operator: STEFANIE WARD ([phone])[facility] ([facility])[address] [place] [address] [place] Potassium [Moles/Vol] 4.1 mmol/L Normal 3.5-5.1 [facility] Comment on above: Result Comment: [facility] potassium values may be up to 0.5 mmol/L lower than serum values. Performed By: #### L AB17 ####Groover Operator: STEFANIE WARD ([phone])[facility] ([facility])[address] [place] [address] Protein [Mass/Vol] 6.8 g/dL Normal 6.4-8.3 [facility] Comment on above: Performed By: #### L AB17 ####Groover Operator: STEAFNIE WARD ([phone])[facility] ([facility])[address] [place] [address] Sodium [Moles/Vol] 138 mmol/L Normal 136-145 [facility] Comment on above: Performed By: #### L AB17 ####Groover Operator: STEFANIE WARD ([phone])[facility] ([facility])[address] [place] [address] Urea nitrogen [Mass/Vol] 15 mg/dL Normal 9-23 [facility] Comment on above: Performed By: #### L AB17 ####Groover Operator: STEFANIE WARD ([phone])[facility])[address] [place] [address] CT ANGIOGRAPHY HEAD W/CONTRA STon 03-04-2025 CT ANGIOGRAPHY HEAD W/CONTRAST [place] [address] Patient: BRIGHT KEEN Phone#: : 1970 Age: 54 Gender: M Pt. Type: ER Account: [id number] Location: [facility] Ordering: CHAD ROSS Exam Date: 03/04/2025/6:43 Family Phys: Charge Code: [id number] Physician: [place] Order #: [id number] Dose#: 12.0 PROCEDURE: CT ANGIOGRAPHY HEAD WITH CONTRAST COMPARISON: None. INDICATIONS: Stroke. TECHNIQUE: After obtaining the patient's consent, CT images of the head were obtained with non- ionic contrast, and MPR and 3D imaging were created and interpreted to optimize visualization of vascular anatomy. All CT scans at this facility use dose modulation, iterative reconstruction, and/or weight based dosing when appropriate to reduce radiation dose to as low as reasonably achievable. IV CONTRAST: Visipaque 320,80ml TOTAL DOSE: 12.0 CTDIvol(mGy) FINDINGS: VASCULATURE: Intracranial internal carotid arteries: Atherosclerotic calcifications of the intracranial arteries. No significant stenosis. No visible aneurysm or vascular malformation. Anterior circulation: No significant stenosis. No visible aneurysm or vascular malformation. The left A1 segment is patent but diminutive. There is an anterior communicating artery. Middle circulation: Normal. No significant stenosis. No visible aneurysm or vascular malformation. Posterior circulation: Normal. No significant stenosis. No visible aneurysm or vascular malformation. Vertebrobasilar circulation: Normal. No significant stenosis. No visible aneurysm or vascular malformation. Other: None CONCLUSION: 1. Patent intracranial arteries Dictated by: Suzette Harman MD on 03/04/2025 at 11:16 Approved by: Suzette Harman MD on 03/04/2025 at 11:20 Normal [facility] CT ANGIOGRAPHY [facility] 2024 CT ANGIOGRAPHY [place] [address] Patient: BRIGHT KEEN Phone#: : 1970 Age: 54 Gender: M Pt. Type: ER Account: [id number] Location: [facility] Ordering: CHAD ROSS Exam Date: 03/04/2025/6:43 Family Phys: Charge Code: [id number] Physician: [place] Order #: [id number] Dose#: 12.0 PROCEDURE: CT ANGIOGRAPHY CAROTIDS WITH CONTRAST COMPARISON: None. INDICATIONS: Stroke. TECHNIQUE: After obtaining the patient's consent, CT images of the neck were obtained with non- ionic intravenous contrast material. MPR/MIPS and 3D images were created to optimize visualization of vascular anatomy. All CT scans at this facility use dose modulation, iterative reconstruction, and/or weight based dosing when appropriate to reduce radiation dose to as low as reasonably achievable. IV CONTRAST: Visipaque 320,80ml TOTAL DOSE: 12.0 CTDIvol(mGy) FINDINGS: Dental amalgam streak artifact limits evaluation at the involved levels. LEFT INTERNAL CAROTID: No hemodynamically significant stenosis or dissection. EXTERNAL CAROTID: No hemodynamically significant stenosis or dissection. COMMON CAROTID: No hemodynamically significant stenosis or dissection. VERTEBRAL: No hemodynamically significant stenosis or dissection. RIGHT INTERNAL CAROTID: No hemodynamically significant stenosis or dissection. EXTERNAL CAROTID: No hemodynamically significant stenosis or dissection. COMMON CAROTID: No hemodynamically significant stenosis or dissection. VERTEBRAL: No hemodynamically significant stenosis or dissection. OTHER: The visualized soft tissues of the neck are also unremarkable. Apical interstitial thickening. Degenerative disc height loss from C3-4 through C7- T1. CONCLUSION: 1. Patent carotid and vertebral arteries of the neck. 2. Lung apices interstitial thickening. [place] [address] Patient: BRIGHT KEENJeremy Phone#: : 1970 Age: 54 Gender: M Pt. Type: ER Account: [id number] Location: 052 Ordering: CHAD ROSS Exam Date: 03/04/2025/6:43 Family Phys: Charge Code: [id number] Physician: [place] Order #: [id number] Dose#: 12.0 Dictated by: Suzette Harman MD on 03/04/2025 at 10:53 Approved by: Suzette Harman MD on 03/04/2025 at 11:08 Normal [facility] CT BRAIN W/O CONTRASTon 04-0 CT BRAIN W/O CONTRAST [place] [address] Patient: BRIGHT KEEN Adolfo Phone#: : 1970 Age: 54 Gender: M Pt. Type: ER Account: [id number] Location: 052 Ordering: CHAD ROSS Exam Date: 03/04/2025/6:39 Family Phys: Charge Code: [id number] Physician: [place] Order #: [id number] Dose#: 57.5 PROCEDURE: CT BRAIN WITHOUT CONTRAST COMPARISON: [facility], CT, BRAIN W/O CON, 06/23/2020, 16:17. INDICATIONS: Stroke. TECHNIQUE: CT images were obtained without contrast material. All CT scans at this facility use dose modulation, iterative reconstruction, and/or weight based dosing when appropriate to reduce radiation dose to as low as reasonably achievable. IV CONTRAST: No IV contrast used,0.0ml TOTAL DOSE: 57.5 CTDIvol(mGy) FINDINGS: CEREBRUM: Age-appropriate atrophy is present, without visible acute hemorrhage or lesion. CEREBELLUM: No edema, hemorrhage, mass, acute infarction, or inappropriate atrophy. BRAINSTEM: No edema, hemorrhage, mass, acute infarction, or inappropriate atrophy. CSF SPACES: Ventricles, cisterns, and sulci are appropriate for age. No hydrocephalus, subarachnoid hemorrhage, or mass. SKULL: No mass or other significant visible lesion. SINUSES: Limited views demonstrate no significant mucosal thickening or fluid. ORBITS: Limited views are unremarkable. OTHER: Negative. CONCLUSION: 1. There is no evidence of acute intracranial abnormality. Dictated by: Estefanía Tadeo MD on 03/04/2025 at 10:12 Approved by: Estefanía Tadeo MD on 03/04/2025 at 10:17 Normal [facility] Comprehensive metabolic 1998 panelon 03-04-2025 Albumin [Mass/Vol] 4 g/dL 3.5 - 5.0 g/dL [facility] ALP [Catalytic activity/Vol] 45 U/L 40 - 150 U/L [facility] ALT [Catalytic activity/Vol] 30 [facility] Anion gap [Moles/Vol] 5 mmol/L 3 - 13 mmol/L [facility] AST [Catalytic activity/Vol] 30 U/L NINF - 34 U/L [facility] Bilirubin [Mass/Vol] 1.4 mg/dL High NINF - 1.2 mg/dL [facility] Calcium [Mass/Vol] 9 mg/dL 8.4 - 10. 2 mg/dL [facility] Chloride [Moles/Vol] 110 mmol/L High 98 - 10 7 mmol/L [facility] CO2 [Moles/Vol] 23 mmol/L 22 - 29 mmol/L [facility] Creatinine [Mass/Vol] 0.86 mg/dL 0.72 - 1.25 mg/dL [facility] GFR/1.73 sq M.predicted (S/P/Bld) [Vol rate/Area] - PINF [facility] Comment on above: Calculation based on the Chronic Kidney Disease Epidemiology Collaboration (CKD-EPI) equation refit without adjustment for race Glucose [Mass/Vol] 94 mg/dL 74 - 100 mg/dL [facility] Interpretation and review of laboratory results Abnormal [facility] Potassium [Moles/Vol] 4.1 mmol/L 3.5 - 5.1 mmol/L [facility] Comment on above: Plasma potassium rena ues may be up to 0.5 mmol/L lower than serum values. Protein [Mass/Vol] 6.8 g/dL 6.4 - 8.3 g/dL [facility] Sodium [Moles/Vol] 138 mmol/L 136 - 145 mmol/L [facility] Urea nitrogen [Mass/Vol] 15 mg/dL 9 - 23 mg/d L [facility] Consulton 03-04-2025 Consult Attestation signed by Deniz Rodney MD at 03/04/2025 2:44 PM NCC/Stroke Attestation I personally saw the patient and performed a substantive portion of the medical decision making. This included the creation and/or approval of the management plan for the number and complexity of problems addressed at this visit and the ongoing responsibility for that plan and its inherent risk. Interval history I agree with history as below Exam General: Well appearing and well developed. HEENT: Normocephalic and atraumatic. Cardiac: Regular rate and rhythm. No murmurs. Pulm: Clear to ausculation bilaterally. GI/: Nondistended, nontender. Ext: No edema. Skin: No rashes or lesions. Neuro: Aox4. Expressive and receptive language intact. PERRL. EOMI. Midline gaze. VFI. Face symmetric. V1-V3 sensation intact. Palate rise symmetrical. Shoulder shrug intact. Tongue midline. LUE 5/5 LLE 5/5 RUE 5/5 RLE 5/5 Sensation intact to light touch and pinprick No ataxia or dysmetria. No extinction or neglect. Gait deferred in acute setting. Assessment and Plan Bright Keen is a patient who had acute onset left hemiparesis s/p TNK with complete resolution in ICU for post TNK protocol monitoring. # ischemic stroke # left hemiparesis, resolved - BP <180/105 - Echo - A1C, LDL - MRI brain wo contrast - Hold DVT ppx, ASA, AC post TNK - PT/OT/POLICE RESERVES COMMANDER Deniz Rodney MD Neurocritical Care I spent a total of 40 minutes in my independent critical care time for this neurocritically ill patient who is at high risk for both clinical and neurological decline due to further brain injury, which can occur unpredictably and rapidly cause multi-organ dysfunction. In that time I reviewed the chart including MAR, labs, neuroimaging, other imaging studies and discussed my diagnostic impression and patient's plan of care with my DEJA/resident/fellow/ student, the consulting team and patient's family members/surrogate decision makers (in cases where the patient is incapacitated and unable to participate in their own care). CONSULT NOTE: NEUROCRITICAL CARE Patient Name: Bright Keen Patient : 1970 Date of Admission: 03/04/2025 HPI: This is a 54 y.o. year old R handed man with no significant PMH who presented to [facility] ER on 03/04 with a chief complaint of L sided weakness. Patient was a transfer from OSH after presenting with L sided weakness. Patient woke up this morning around 0540 and while he was getting ready around 0550 he developed weakness of the LUE, LLE and felt that his speech was slow, slurred and face felt droopy. On arrival to OSH ER NIHSS 5. CT, CTA reported negative. BP 150/100's. Treated with TNK and transferred to [facility]. On arrival to [facility] NIHSS 0. Recent urinary retention that resolves 1 week ago. Reports few months of increasing SOB during exertion. Not on any home medications. No past medical history on file. No past surgical history on file. No family history on file. No Known Allergies Prior to Admission medications Not on File Review of Systems Constitutional: Negative for diaphoresis and fatigue. HENT: Negative for trouble swallowing and voice change. Eyes: Negative for visual disturbance. Respiratory: Negative for cough and shortness of breath. Cardiovascular: Negative for chest pain and palpitations. Gastrointestinal: Negative for diarrhea and nausea. Genitourinary: Negative for dysuria. Musculoskeletal: Negative for back pain and gait problem. Skin: Negative for pallor. Neurological: Positive for weakness and numbness. Negative for dizziness, tremors, seizures, syncope, facial asymmetry, speech difficulty, light-headedness and headaches. Psychiatric/Behavior al: Negative for confusion and decreased concentration. Physical Examination: Patient Vitals for the past 8 hrs: BP Temp Temp src Pulse Resp SpO2 03/04/25 0951 (!) 160/99 37.5 ?C (99.5 ?F) Oral 85 18 97 % No intake/output data recorded. General Physical Examination: General: Awake HEENT:Normocephalic, atraumaticl CV: S1+S2, RRR, no MRG. Pulm:CTA b/l, unlabored Abdomen: Soft NT/ND. BS + Skin: Intact without ulcers, breakdowns or discoloration Extremities: normal with no edema or cyanosis Orthopedic limitation; No Pulses: Intact peripherally Carotid auscultation :No bruits Neurological Examination: Higher Functions: Mental Status Exam: Level of Alertness:Awake Orientation: Normal to self, time, place Memory: Normal Fund of Knowledge: Normal Language: Normal Dysarthria not present Cranial Nerves: -II Visual acuity: normal -II Visual dillon: normal -III Pupils (~ 3 mm OD, 3 mm OU) equal, round, reactive to light -III-IV- Extraocular Movements: intact -Nystagmus not present -Saccades and pursuits normal (more content not included)... Normal [facility] ECG 12-LEADon 03-04-2025 ECG 12-LEAD IMPRESSION: Sinus rhythm Normal [place] No ST or T wave changes Electronically Signed On 03-04-2025 19:49:28 EDT by Zachariah Medina [facility] ED MED ADMINISTRATION DETAIL on 03-04-2025 ED MED ADMINISTRATION DETAIL Power Superintendent Medication Administration Record [address] [address] [id number] 03/04/2025 Patient: BRIGHT KEEN Sex: Male : 1970 Age: 54y MEASUREMENTS: Wt: 122.5 kg, Ht/Blu: 72.0 in, BMI: 36.62 ALLERGIES: No known drug allergies Medication Ordered Medication Administration Date/Time Tenecteplase (Tnk) 07:23 03/04 Tenecteplase (Tnk) IVP 25 mg given via Site# 1. Given IVP 25 mg (Max Allergies verified and confirmed 5 rights. IV patency established. IV 07:23 03/04/2025 dose 25mg, NOW site checked: no pain, redness, or swelling. IV flushed thoroughly Ridge Cavazos R.N. x1, HIGH ALERT pre-medication administration. IVP given by nurse. Information Not Scanned MEDICATION) reviewed with patient and family including reason for taking this medication, signs of allergic reaction and precautions. Verbalizes understanding. - 07:47 Ridge Cavazos R.N. 07:23 03/04 Medication Co-sign: Verified dosage, concentration and rate. - 07:47 Randy Cooper R.N. 1 of 1 [facility] ED NURSES CLINICAL NOTEon ED NURSES CLINICAL NOTE Nurse Narrative Nurse Clinical Narrative [address] [address] [id number] 03/04/2025 06:28:00 Patient: BRIGHT KEEN Sex: Male : 1970 Age: 54y Disposition: Transfer to [facility] Disposition Decision Time: 07:44 03/04/2025 Departure Time: 08:28 03/04/2025 TRIAGE Arrived by EMS. Historian: (patient and family). Triage time: 06:30 03/04/2025. -- 07:35 03/04/25 EDT Randy Cooper R.N. 06:40 04/3/25. BP: 154/107 MAP: 123. HR: 86. RR: 16. O2 saturation: 96% on room air. Temperature: 98.1 F (oral). Pain level now 0/10. -- 07:40 03/04/25 EDT Randy Cooper R.N. Acuity: LEVEL 1. Chief Complaint: WEAKNESS. 06:45 03/04/25. Alert. No acute distress. Motor arm: (0). This started 0555 noticed head tilting to left side, weakness in left arm and leg. The patient has had constant weakness of the right arm and leg and left arm and leg. The patient has had constant numbness of the right arm and leg and left arm and leg. No alteration in mental status, headache, recent fall, impaired speech or dizziness. Treatment CASKET ASSEMBLER METAL: None. NIH STROKE SCALE: Score 5. Performed at 06:03/04/2025. Level of Consciousness: alert (0). LOC Questions: both (0). LOC Commands: both (0). Best gaze: normal (0). Visual field loss: none (0). Facial palsy: normal (0). Motor arm: no drift right arm (0) and no drift left arm (0). Motor leg: drift right leg (1) and no effort against gravity left leg (3). Limb ataxia: one limb (1). Sensory loss: none (0). Aphasia: none (0). Dysarthria: normal (0). Extinction and inattention: none (0). 1 of 4 Nurse Narrative SEPSIS SCREEN: NEGATIVE. SIRS criteria negative. No possible sources of infection. -- 07:45 03/04/25 EDT Randy Cooper R.N. Measurements: 07:03/04/25 Wt: 122.5 kg, Ht/Blu: 72.0 in, BMI: 36.62 -- 07:03/04/25 EDT Randy Cooper R.N. Medications: no known home medications -- 07:03/04/25 EDRhonda Cooper R.N. 06:03/04/25. Preferred Pharmacy: ([facility]). -- 07:45 03/04/25 EDT Randy Cooper R.N. Allergies: no known drug allergies -- 07:37 03/04/25 EDT Randy Cooper R.N. Problems: Hypertension -- 07:38 03/04/25 EDT Randy Cooper R.N. ADDITIONAL SURGERIES: plates in both arms -- 07:38 03/04/25 EDT Randy Cooper R.N. History 06:45 03/04/25. PAST MEDICAL HX: Immunizations: up-to-date. SOCIAL HX: Never smoker. No alcohol use or drug use. The patient has not traveled outside the [place] Infectious disease exposure: No infectious disease exposure. ABUSE ASSESSMENT: The patient answered yes to the question(s) Do you feel safe in your home? and no to the question(s) Are you afraid to go home?. SELF HARM ASSESSMENT: Self harm assessment was performed. The patient answered no to the question(s) Have you recently felt down, depressed, or hopeless? and Do you have thoughts of harming or 2 of 4 Nurse Narrative killing yourself?. FALL RISK ASSESSMENT: Fall risk assessment completed. No risk factors identified. -- 07:45 03/04/25 ANTHONY Cooper R.N. Interventions 06:45 03/04/25. Identification band on patient. Advanced care plan. Patient does not have advanced directive. -- 07:45 03/04/25 ROLANDT Randy Cooper R.N. PHYSICAL ASSESSMENT 07:00 03/04/25. To room via stretcher. Patient gowned. Baseline functional status: usually alert and oriented x4. Verbal response: usually clear and appropriate. GENERAL / NEURO / PSYCH: Awake. Oriented X 4. Alert. No decreased awareness. No alteration in mental status. Normal verbal response. Speech normal. No aphasia. Mood/affect normal but normal. Finger-nose test mildly abnormal on the left. Strength is unequal; right foot push/pull is greater than the left foot push/pull. The patient has new onset of constant weakness of the right leg and left arm. The patient has new onset of constant numbness of the right leg and left arm. No sensory deficit. No sensory deficit. No slurred speech. Pupillary exam: Right pupil 2mm, round and sluggishly reactive. Left pupil: 2mm, round and sluggishly reactive. No double vision. HEENT: No facial weakness. No nystagmus or visual field deficit. No signs of head trauma. No trouble handling secretions. RESPIRATORY: Breath sounds within normal limits. Respirations not labored. CVS: Normal sinus rhythm noted. Cardiac rhythm: normal sinus rhythm. SKIN: Skin is intact and warm. ( mildly sweating). -- 07:50 03/04/25 EDT Randy Cooper R.N. NURSING PROGRESS NOTES 06:37 03/04/25. Patient transported to CT by stretcher with monitor, nurse and service technician copier. -- 07:51 03/04/25 EDT Wilma Massey R.N. 06:50 03/04/25. Patient returned from CT by stretcher with monitor, nurse and service technician copier. -- 07:51 03/04/25 EDT Wilma Massey R.N. 07:00 03/04/25. Site #1 started via IV in the left hand (more content not included)... Normal [facility] ED Nursing Noteon 03-04-2025 ED Nursing Note Report given to Shana on T2. Normal [facility] ED ORDER SHEET (CPOE ONLY)on 03-04-2025 ED ORDER SHEET (CPOE ONLY) Order Sheet Order Sheet [address] [place] [address] [id number] 03/04/2025 Patient: BRIGHT KEEN Sex: Male : 1970 Age: 54y MEASUREMENTS: Wt: 122.5 kg, Ht/Blu: 72.0 in, BMI: 36.62 ALLERGIES: No known drug allergies MEDICATION/IV/DRIP/F LUID ORDERS Order Description Priority Entered Acknowledged Completed Tenecteplase (Tnk) IVP25 mg 07:16 03/04/2025 07:32 07:47 (Max dose 25mg, NOW x1, HIGH Chad Ross D.O. 03/04/2025 03/04/2025 ALERT MEDICATION) Ridge Colón R.N. R.N. LAB ORDERS Order Description Priority Entered Acknowledged Collected Completed CBC w Diff Stat Stat 06:35 03/04/2025 07:32 03/04/2025 07:49 03/04/2025 Chad DidMelinda cochran Anne Rutt, R.N. RPrasanna CMP Stat Stat 06:35 03/04/2025 07:32 03/04/2025 07:49 03/04/2025 Melinda Rome Anne Rutt, Essence R.NJeremy Blood Culture Stat 06:35 03/04/2025 Cancelled: Wrong Order [Tamiko] # 1 Stat Chad Ross D.O. 07:50 EDT Chad Ross D.O. 1 of 4 Order Sheet Blood Culture Stat 06:35 03/04/2025 Cancelled: Wrong Order [Tamiko] # 2 Stat Chad Ross D.O. 07:50 EDT Chad Ross D.O. BNP Stat Stat 06:35 03/04/2025 07:32 03/04/2025 07:49 03/04/2025 Melinda Rome Anne Rutt, EmilyN. R.NJeremy Troponin-I Stat Stat 06:35 03/04/2025 07:33 03/04/2025 07:49 03/04/2025 Melinda Rome Anne Rutt, EmilyN. R.N. EKG - ED Stat Stat 06:35 03/04/2025 07:32 03/04/2025 07:49 03/04/2025 Melinda Rome Anne Rutt, Lyndsey.N. R.N. Lactate, Serum Stat Stat 06:35 03/04/2025 07:33 03/04/2025 07:49 03/04/2025 Melinda Rome Anne Rutt, Lyndsey.N. R.N. Order Comments: 07:50 03/04/2025: cancel Chad Ross D.O. Urinalysis Stat Stat 06:35 03/04/2025 07:33 03/04/2025 Melinda Rome R.N. PT with INR Stat Stat 06:36 03/04/2025 07:33 03/04/2025 07:50 03/04/2025 Melinda Rome Anne Rutt, R.N. RPrasanna PTT Stat Stat 06:36 03/04/2025 07:33 03/04/2025 07:50 03/04/2025 Melinda Rome Anne Rutt, R.N. REric. Copy of CT scans to go 07:34 03/04/2025 07:50 03/04/2025 with patient on disc Melinda Rome R.N. please DIAGNOSTIC STUDY ORDERS 2 of 4 Order Sheet Order Description Priority Entered Acknowledged Completed Chest 1V Stat Stat 06:35 03/04/2025 07:33 Chad Ross D.O. 03/04/2025 Randy Cooper R.N. Reason for Study: Pneumonia CT Brain wo Cont Stat Stat 06:35 03/04/2025 07:33 Chad Ross D.O. 03/04/2025 Randy Cooper R.N. Reason for Study: Stroke CTA Carotids w IVC Recons Stat 06:35 03/04/2025 07:33 Stat Chad Ross D.O. 03/04/2025 Randy Cooper R.N. Reason for Study: Stenosis CTA Head Hoh of Jones w Stat 06:35 03/04/2025 07:33 Recons Stat Chad Ross D.O. 03/04/2025 Randy Cooper R.N. Reason for Study: Stenosis STAFF ORDERS Order Description Priority Entered Acknowledged Collected Completed Vital Signs every 30 06:35 03/04/2025 07:33 03/04/2025 07:49 03/04/2025 minutes Melinda Rome Anne Rutt, R.N. R.NJeremy Mailer 06:35 03/04/2025 07:33 03/04/2025 07:49 03/04/2025 Melinda Rome Anne Rutt, R.N. R.N. Oxygen titrate to 92% 06:35 03/04/2025 07:33 03/04/2025 07:49 03/04/2025 Melinda Rome Anne Rutt, R.N. 3 of 4 Order Sheet R.N. IV Saline Lock 06:35 03/04/2025 07:33 03/04/2025 07:49 03/04/2025 Melinda Rome Anne Rutt, R.N. R.N. Initiate Telemedicine 06:37 03/04/2025 07:33 03/04/2025 07:50 03/04/2025 Consult Melinda Rome Anne Rutt, R.N. R.N. [Electronically signed by Chad Ross D.O. (03/04/2025 08:50 EDT)] 4 of 4 Normal [facility] ED PHYSICIAN CLINICAL REPORT on 03-04-2025 ED PHYSICIAN CLINICAL REPORT Narrative Physician Clinical Narrative [address] [address] [id number] 03/04/2025 Patient: BRIGHT KEEN Sex: Male : 1970 Age: 54y Disposition: Transfer to [facility] Disposition Decision Time: 07:44 03/04/2025 Departure Time: 08:28 03/04/2025 Measurements Wt: 122.5 kg, Ht/Blu: 72.0 in, BMI: 36.62 Initial Vital Sign Measured Time BP MAP HR RR O2Sat ETCO2 Temp Pain GCS RTS 06:40 03/04/2025 154/107 123 86 16 96% RA 98.1 F 0 Time Seen: 06:23 03/04/2025. Arrived- By ambulance. Historian- patient. Independent historian- EMS personnel and family. HISTORY OF PRESENT ILLNESS Chief Complaint: WEAKNESS. Complaining of left-sided weakness after he got dressed this morning. Patient was last known well (06:00 03/04/2025). The patient has had weakness of the left arm (moderate) and left leg (moderate). No visual disturbance or impaired swallowing. No difficulty walking. No altered mental status. Usually is alert and oriented X3. Similar symptoms previously. None. Recent medical care: Not recently seen/assessed. REVIEW OF SYSTEMS 1 of 13 Narrative CONSTITUTIONAL: No fever. NEUROLOGICAL: No headache or head injury. RESPIRATORY: No difficulty breathing, cough or sputum production. THROAT: No sore throat. GI: No abdominal pain, nausea, diarrhea, black stools or vomiting. : No difficulty with urination. SKIN: No skin rash. ENDO/HEME/LYMPH: No enlarged lymph nodes. MUSCULOSKELETAL: No joint pain. CVS: No chest pain. PAST HISTORY See nurses notes. Hypertension. Hypertension Surgeries: plates in both arms Medications: no known home medications Allergies: no known drug allergies SOCIAL HISTORY Never smoker. No alcohol use or drug use. ADDITIONAL NOTES The nursing notes have been reviewed. PHYSICAL EXAM Appearance: Alert. No acute distress. Head: Head atraumatic. ENT: Normal ENT inspection. Airway intact. Pharynx normal. Neck: Normal inspection. Neck supple. CVS: Normal heart rate and rhythm. Heart sounds normal. Pulses normal. Respiratory: No respiratory distress. Painless inspiration. Breath sounds normal. Abdomen: Soft and nontender. No organomegaly. Back: Normal inspection. Skin: Skin warm and dry. No rash. 2 of 13 Narrative Extremities: No lower extremity edema. Neuro: Alert. Oriented X 3. Mood/affect normal. Speech normal. The patient has constant, localized weakness of the right leg (1/5 muscle flicker but no movement), left arm (2/5 movement possible but not against gravity) and left leg (0/5 no contraction). (no facial droop. Speech is clear.). LABS, X-RAYS, AND EKG 12-LEAD EKG: EKG time: 06:55 03/04/2025. Normal sinus rhythm. Rate: 90. Normal P waves. Normal QRS complex. Normal ST and T waves. The study has been interpreted contemporaneously by me. The EKG appears to be a good tracing. Interpretation time: 06:56 03/04/2025. CT Head: No acute disease. (Discussed CT findings with Dr. Rodolfo marshall from Radiology at 7:[address] brain noncontrast --negative. CTA of both the head and neck--negative. No acute intracranial abnormality. No acute intracranial hemorrhage or extra-axial collection. Normal bhat white differentiation. No CT findings for acute territorial infarct. Normal ventricular size. No midline shift or mass effect. Intact calvarium. Normal globes and orbits. Paranasal sinuses and mastoid air cells are clear.). The study was interpreted by the radiologist and discussed with the radiologist. Interpretation time: 07:29 03/04/2025. Laboratory Tests: APTT Final LUIS: 03/04/2025 06:30:00 EDT MsgRcvd: 03/04/2025 06:58 EDT Lab Test Result Reference Status Received Comments 03/04/2025 06:58 PTT 31.1 sec 25.4 - 38.4 Final EDT CBC + DIFF Final LUIS: 03/04/2025 06:30:00 EDT MsgRcvd: 03/04/2025 06:47 EDT Lab Test Result Reference Status Received Comments 03/04/2025 06:47 CBC-COMPLETE CBC + DIFF Final EDT BLOOD COUNT 3 of 13 Narrative Lab Test Result Reference Status Received Comments 03/04/2025 06:47 WBC 6.7 x 10/UL 4.5 - 10.8 Final EDT 03/04/2025 06:47 RBC 5.16 x 10/UL 4.50 - 6.00 Final EDT 03/04/2025 06:47 HEMOGLOBIN 15.3 g/dl 13.0 - 17.5 Final EDT 03/04/2025 06:47 HEMATOCRIT 44.0 % 40.0 - 52.0 Final EDT 03/04/2025 06:47 MCV 85 fl 81 - 98 Final EDT 03/04/2025 06:47 MCH 30 pg 27 - 33 Final EDT 03/04/2025 06:47 MCHC 35 X10 3 32 - 36 Final EDT 03/04/2025 06:47 RDW/CV 13.7 % 12.0 - 15.6 Final EDT 03/04/2025 06:47 PLATELET 240 x10/UL 150 - 450 Final EDT 03/04/2025 06:47 AUTOMATED MPV 8.7 fl 6.4 - 10.5 Final EDT DIFFERENTIAL 03/04/2025 06:47 NEUT % 48.0 % 46.0 - 76.0 Final EDT 03/04/2025 06:47 LYMPH % 40.2 % 20.0 - 45.0 Final EDT 03/04/2025 06:47 M (more content not included)... Normal [facility] ED Provider Noteon ED Provider Note EMERGENCY DEPARTMENT ENCOUNTER Pt Name: Bright Keen Birthdate 1970 Date of evaluation: 03/04/2025 ED Provider: Rolo Veloz DO CHIEF COMPLAINT Chief Complaint Patient presents with Stroke Pt comes in by EMS from [facility] with stroke like symptoms, initial NIH was 5, pt received TNK. Upon arrival to ED NIH is 0. HISTORY OF PRESENT ILLNESS (Location/Symptom, Timing/Onset, Context/Setting, Quality, Duration, Modifying Factors, Severity) Note limiting factors. I wore appropriate PPE for the entirety of this encounter. HPI Bright Keen is a 54 y.o. with history of reported hypertension without any official diagnosis for medications who presents to the emergency department with chief complaint of strokelike symptoms. Patient presented to outside facility with sudden onset left upper and left lower extremity weakness at 06 100 this a.m. At that time patient was given an NIHSS of 5 and given TN K after discussion with her stroke. Patient was then transferred here for further evaluation management. Currently patient is asymptomatic. Patient reports rapid resolution of all deficits. Patient currently denies any new or associated BEAN, vision changes, CP, SOB, abd pain, nausea, vomiting, diarrhea, constipation, urinary complaints. Nursing Notes were reviewed. Limitations to history: none Outside historians: none REVIEW OF SYSTEMS Review of Systems Pertinent positives and negatives as per HPI. PAST MEDICAL HISTORY No past medical history on file. SURGICAL HISTORY No past surgical history on file. CURRENT MEDICATIONS Previous Medications No medications on file ALLERGIES Patient has no known allergies. FAMILY HISTORY No family history on file. SOCIAL HISTORY SCREENINGS [place] Coma Scale Best Eye Response: Spontaneous Best Verbal Response: Oriented Best Motor Response: Follows commands Eddie Coma Scale Score: 15 NIH Stroke Scale 1A. Level of Consciousness: Alert, Keenly Responsive 1B. Ask Month and Age: Both Questions Right 1C. Blink Eyes & Squeeze Hands: Performs Both Tasks 2. Best Gaze: Normal 3. Visual: No Visual Loss 4. Facial Palsy: Normal Symmetrical Movements 5A. Motor - Left Arm: No Drift 5B. Motor - Right Arm: No Drift 6A. Motor - Left Leg: No Drift 6B. Motor - Right Leg: No Drift 7. Limb Ataxia: Absent 8. Sensory Loss: Normal 9. Best Language: No Aphasia 10. Dysarthria: Normal 11. Extinction and Inattention: No Abnormality NIH Stroke Scale: 0 PHYSICAL EXAM ED Triage Vitals [03/04/25 0951] Temp Heart Rate Resp BP 37.5 ?C (99.5 ?F) 85 18 (!) 160/99 SpO2 Temp Source Heart Rate Source Patient Position 97 % Oral Monitor Sitting BP Location FiO2 (%) Left arm -- General: A&O x 3, well appearing, no acute distress Head: NC/AT Eyes: Atraumatic, EOMI, clear conjunctival, PERRLA Nose: Atraumatic, no skin changes Throat: Moist mucus membranes, uvula midline, oropharynx clear Neck: atraumatic, Supple, no lymphadenopathy, no stiffness or restricted ROM Heart: Normal rate and regular rhythm, no m/r/g Lungs: CTA bilaterally, no crackles or wheezes, no respiratory distress Abd: Soft, nontender, nondistended, no guarding Back: atraumatic, no step-off, No midline vertebral ttp, no CVA tenderness bilaterally Extremity: warm, no clubbing or edema, 2+ pulses bilateral radial pulse bilaterally, 2+ PT pulses bilaterally Neurologic: Non focal exam, moving all extremities spontaneously,5/5 bilateral UE and LE strength. CN II-XII intact. Nl [id number] bilaterally. Nl [id number]. NIHSS 0 Skin: warm, dry, no obvious rashes DIAGNOSTIC RESULTS Procedures/EKG: EKG was reviewed by myself. Physician EKG interpretation can be found below in MDM RADIOLOGY (Per Emergency Physician): As per below in MDM section Interpretation per the Radiologist below, if available at the time of this note: No orders to display ED BEDSIDE ULTRASOUND: Performed by ED Physician - none LABS: Labs Reviewed - No data to display All other labs were within normal range or not returned as of this dictation. EMERGENCY DEPARTMENT COURSE and DIFFERENTIAL DIAGNOSIS/MDM: Vitals: Vitals: 03/04/25 0951 BP: (!) 160/99 BP Location: Left arm Patient Position: Sitting Pulse: 85 Resp: 18 Temp: 37.5 ?C (99.5 ?F) TempSrc: Oral SpO2: 97% Diagnoses as of 03/04/25 0958 Stroke-like symptoms Medications sodium chloride 0.9 % infusion (has no administration in time range) acetaminophen (Tylenol) tablet 650 mg (has no administration in time range) Or acetaminophen (Tylenol) suppository 650 mg (has no administration in time range) polyethylene glycol (PEG) 3350 (Miralax) packet 17 g (has no administration in time range) bisacodyl (Dulcolax) suppository 10 mg (has no administration in time range) ondansetron ODT (Zofran-ODT) disintegrating tablet 4 mg (has no administration in time range) Or ondansetron (Zofran) (more content not included)... Normal [facility] ED [facility] BILLon 03-04-[address] [address] [id number] 03/04/2025 Patient: BRIGHT KEEN Sex: Male : 1970 Age: 54y Facility Professional Category Item Description Code Code Quantity Fee Total Nurse/E/M EMERGENCY 469716 1 $0.00 $0.00 DEPT VISIT HIGH SEVERITYFUNCJ (76738-28) Nurse/IV/IM/Infusion s IVP initial (03202) 565402 1 $0.00 $0.00 Grand $0.00 Total Providers Chad Ross D.O. Chief Complaint WEAKNESS. Complaining of left-sided weakness after he got dressed this morning. Principal Diagnosis Nontraumatic cerebrovascular accident- ischemic infarct. ICD-10 Codes 1 of 2 [facility] I63.9: Cerebral infarction, unspecified 2 of 2 [facility] ED VISIT SUMMARYon ED VISIT SUMMARY Visit Overview Visit Overview [address] [address] [id number] 03/04/2025 Patient: BRIGHT KEEN Sex: Male : 1970 Age: 54y 03/04/2025 10:30 AM EDT ED Arrival:06:28 03/04/2025 EDT Status: Recent Travel:no Language:eng Adv Directive:No Isolation Status: Ethnicity:N Fall Risk:no risk Infectious Disease Exposure:no Measurements:6' / 182.9 Self-Harm Status:risk Sepsis Screen:negative cm 270.0 lb / 122.5 kg Chief Complaint:WEAKNESS, (0), (0555 noticed head tilting to left side, weakness in left arm and leg), and (06:45 03/04/2025) ALLERGIES No Known Drug Allergies HOME MEDICATIONS None PAST MEDICAL HISTORY / PROBLEMS Hypertension 1 of 4 Visit Overview Immunizations: up-to-date See nurses notes PAST SURGICAL HISTORY plates in both arms SOCIAL HISTORY Smoking status: No Alcohol use: No Drug use: No ED COURSE MEDICATIONS GIVEN IN EMERGENCY DEPARTMENT 07:23 03/04/25 Tenecteplase (Tnk) IVP 25 mg IV SITE INFORMATION 07:00 03/04/25 Site #1 left hand, 20g. INTAKE OUTPUT REASSESMENT (most recent) 07:00 03/04/25. To room via stretcher. Patient gowned. Baseline functional status: usually alert and oriented x4. Verbal response: usually clear and appropriate. GENERAL / NEURO / PSYCH: Awake. Oriented X 4. Alert. No decreased awareness. No alteration in mental status. Normal verbal response. Speech normal. No aphasia. Mood/affect normal but normal. Finger-nose test mildly abnormal on the left. Strength is unequal; right foot push/pull is greater than the left foot push/pull. The patient has new onset of constant weakness of the right leg and left arm. The patient has new onset of constant numbness of the right leg and left arm. No sensory deficit. No sensory deficit. No slurred speech. Pupillary exam: Right pupil 2mm, round and sluggishly reactive. Left pupil: 2mm, round and sluggishly reactive. No double vision. HEENT: No facial weakness. No nystagmus or visual field deficit. No signs of head trauma. No trouble handling secretions. RESPIRATORY: Breath sounds within normal limits. Respirations not labored. CVS: Normal sinus rhythm noted. Cardiac rhythm: normal sinus rhythm. SKIN: Skin is intact and warm. ( mildly sweating). 2 of 4 Visit Overview VITAL SIGNS First Vitals Last Vitals Temp 06:40 03/04/25 98.1 F Temp 08:20 03/04/25 BP 06:40 03/04/25 154/107 BP 08:20 03/04/25 HR 06:40 03/04/25 86 HR 08:20 03/04/25 RR 06:40 03/04/25 16 RR 08:20 03/04/25 16 O2 Sat 06:40 03/04/25 96% RA O2 Sat 08:20 03/04/25 Pain 06:40 03/04/25 0 Pain 08:20 03/04/25 0 ETCO2 06:40 03/04/25 ETCO2 08:20 03/04/25 GCS 06:40 03/04/25 GCS 08:20 03/04/25 RTS 06:40 03/04/25 RTS 08:20 03/04/25 PROCEDURES NURSING INTERVENTIONS LABS / STUDIES LABS / STUDIES ORDERED BNP CBC w Diff Chest 1V CMP Copy of CT scans to go with patient on disc please CT Brain wo Cont CTA Carotids w IVC Recons CTA Head Hoh of Jones w Recons EKG - ED Lactate, Serum PT with INR PTT Troponin-I Urinalysis LABS - ABNORMAL RESULTS TROPONIN HS TROPONIN 107.2 pg/mL () 3 of 4 Visit Overview LABS / STUDIES PENDING IMPORT CT BRAIN W/O CONTRAST CLINICAL IMPRESSION NONTRAUMATIC CEREBROVASCULAR ACCIDENT- ISCHEMIC INFARCT 4 of 4 Normal [facility] ED VITALS FLOW SHEETon 03-04 ED VITALS FLOW SHEET Vitals Vital Sign Flow Sheet [address] [place] [address] [id number] 03/04/2025 Patient: BRIGHT KEEN Sex: Male : 1970 Age: 54y Measurements Wt: 122.5 kg, Ht/Blu: 72.0 in, BMI: 36.62 Measured Time BP MAP HR RR O2Sat ETCO2 Temp Pain GCS RTS 08:20 03/04/2025 16 0 08:19 03/04/2025 87 97% 08:14 03/04/2025 84 96% 08:12 03/04/2025 147/93 106 87 08:10 03/04/2025 137/88 105 84 07:59 03/04/2025 81 96% 07:57 03/04/2025 153/94 105 82 07:54 03/04/2025 84 96% 07:54 03/04/2025 154/95 114 83 07:49 03/04/2025 88 96% 07:44 03/04/2025 89 96% 07:42 03/04/2025 136/92 106 90 07:39 03/04/2025 89 96% 07:39 03/04/2025 153/120 127 89 07:34 03/04/2025 90 96% 1 of 2 Vitals Measured Time BP MAP HR RR O2Sat ETCO2 Temp Pain GCS RTS 07:29 03/04/2025 89 97% 07:28 03/04/2025 154/102 115 86 06:40 03/04/2025 154/107 123 86 16 96% RA 98.1 F 0 2 of 2 Normal [facility] HIGH SENSITIVITY TROPONIN, S ERIAL BASELINEon 03-04-2025 TROPONIN HS SERIAL BASELINE 68 ng/L High <=35 [facility] Comment on above: Result Comment: In i ndividuals presenting with symptoms > 2h, a baseline troponin <= 5 ng/L suggests acute cardiac injury is unlikely and further serial testing is generally not indicated. Performed By: #### L [id number] ####Groover Operator: STEFANIE WARD ([phone])[facility] ([facility])[address] [place] [address] HIGH SENSITIVITY TROPONIN, S ERIAL, SECOND TESTon 03-04-2025 2H TROPONIN HS (SERIAL 2ND TROPONIN) 116 ng/L High <=35 [facility] Comment on above: Result Comment: Risi ng or falling troponin delta greater than 15 ng/L as compared to baseline value is significant for acute cardiac injury. Performed By: #### L [id number] ####Groover Operator: STEFANIE WARD ([phone])[facility] ([facility])[address] [place] [address] LACTATEon 03-04-2025 Lactate [Moles/Vol] 0.8 mmol/L Normal 0.4 - 2.0 [facility] Comment on above: Performed By: #### 2 [id number] #### [facility],[address] [place] [address] Laboratory - Coagulationon 0 03-04-2025 aPTT Coag (PPP) [Time] 29.2 s 20.0 - 30.5 s [facility] INR Coag (PPP) [Relative time] 1 {INR} 0.9 - 1.1 [facility] Comment on above: Recommended Anticoag ulant Therapy: SEE BELOW ----- INR of 2.0 - 3.0 : - Prophylaxis of Venous Thrombosis (high-risk surgery) - Treatment of Venous Thrombosis - Treatment of Pulmonary Embolism (Includes tissue heart valves, Acute Myocardial Infarction to prevent systemic embolism, Valvular Heart Disease, and Atrial Fibrillation) ----- INR of 2.5 - 3.5 : - Mechanical Prosthetic Valves (high risk) - If oral anticoagulant therapy is used to prevent Myocardial Infarction PT Coag (Bld) [Time] 10.6 s 9.0 - 12.0 s [facility] NT-proBNPon 03-04-2025 Natriuretic peptide B (Bld) [Mass/Vol] 563 pg/mL High 0 - 125 [facility] Comment on above: Performed By: #### 2 [id number] ####[facility],[address] [place] [address] No Panel InformationOrdered By: Zachariah Medina on 03-04-2025 P [place] 34 degrees [employer] Work Phone: SC Interval 167 ms [employer] Work Phone: QRS [place] 53 degrees [employer] Work Phone: QRSD Interval 91 ms [facility] Hospital[facility] Data Softwaret [employer] Work Phone: QT Interval 378 ms [facility] [employer] Work Phone: QTC Interval 439 ms [employer] Work Phone: T Wave [place] 54 degrees [employer] Work Phone: [employer] Work Phone: No Panel Informationon 03-04 Sinus rhythm Normal [place] No ST or T wave changes Electronically Signed On 03-04-2025 19:49:28 EDT by Zachariah Joya MD - 03/04/2025 IMPRESSION: Sinus rhythm Normal [place] No ST or T wave changes Electronically Signed On 03-04-2025 19:49:28 EDT by Zachariah Medina [facility] [employer] 2h Troponin HS (Serial 2nd Troponin) 116 ng/L High NINF - 35 ng/L [facility] [employer] Comment on above: Rising or falling tr oponin delta greater than 15 ng/L as compared to baseline value is significant for acute cardiac injury. Interpretation and review of laboratory results Abnormal [facility] Interpretation and review of laboratory results Abnormal [facility] Troponin HS Serial Baseline 68 ng/L High NINF - 35 ng/L [facility] Comment on above: In individuals prese nting with symptoms > 2h, a baseline troponin <= 5 ng/L suggests acute cardiac injury is unlikely and further serial testing is generally not indicated. [facility] Interpretation and review of laboratory results Normal [facility] PROTHROMBIN TIME AND INRon 0 03-04-2025 INR Coag (PPP) [Relative time] 1.0 {INR} Normal 0.8 - 1.2 [facility] Comment on above: Result Comment: T HE HEMOSIL THROMBOPLASTIN REAGENT USED IN THE PROTHROMBIN TIME TEST INTERACTS WITH THE DRUG CUBICIN (DAPTOMYCIN) AND WILL RESULT IN FALSELY ELEVATED PT / INR RESULTS INR INTERPRETATION INR INDICATION PREVENTION AND TREATMENT OF THROMBOEMBOLISM ASSOCIATED WITH: 2.0 - 3.0 ATRIAL FIBRILLATION, BIOPROSTHETIC HEART VALVES, PULMONARY EMBOLISM, VENOUS THROMBOSIS, SYSTEMIC EMBOLISM POST MYOCARDIAL INFARCTION 2.5 - 3.5 MECHANICAL HEART VALVES Performed By: #### 2 [id number] #### [facility],[address] [place] [id number] PROTHROMBIN TIME AND INR Normal [facility] Comment on above: Result Comment: PROT HROMBIN TIME AND INR Performed By: #### 2 [id number] #### [facility],[address] [place] [address] PT-COUMADIN 11.4 sec Normal 9.3 - 14.1 [facility] Comment on above: Performed By: #### 2 [id number] #### [facility],[address] [place] [address] PROTIME AND APTTon aPTT Coag (Bld) [Time] 29.2 s Normal 20.0-30.5 [facility] Comment on above: Performed By: #### L [id number] ####Groover Operator: STEFANIE WARD ([phone])[facility] ([address] INR Coag (PPP) [Relative time] 1.0 {INR} Normal 0.9-1.1 [facility] Comment on above: Result Comment: Nabeel mmended Anticoagulant Therapy: SEE BELOW ----- INR of 2.0 - 3.0 : - Prophylaxis of Venous Thrombosis (high-risk surgery) - Treatment of Venous Thrombosis - Treatment of Pulmonary Embolism (Includes tissue heart valves, Acute Myocardial Infarction to prevent systemic embolism, Valvular Heart Disease, and Atrial Fibrillation) ----- INR of 2.5 - 3.5 : - Mechanical Prosthetic Valves (high risk) - If oral anticoagulant therapy is used to prevent Myocardial Infarction Performed By: #### L [id number] ####Groover Operator: STEFANIE WARD ([phone])[facility] ([facility])[address] [place] [address] PT Coag (PPP) [Time] 10.6 s Normal 9.0-12.0 [facility] Comment on above: Performed By: #### L [id number] ####Groover Operator: STEFANIE WARD ([phone])[facility] ([facility])[address] [place] [address] Progress Noteon 03-04-2025 Progress Note PHYSICAL THERAPY [facility] Name/MRN: Bright Keen ([id number]) Date: 03/04/2025 PT orders received. Pt with active strict bedrest orders. Will attempt eval with updated activity orders. Shannan Mcneill, PT Normal [facility] Progress Note OCCUPATIONAL THERAPY [facility] Name/MRN: Bright Keen ([id number]) Date: 03/04/2025 OT orders received, chart reviewed. Pt currently with bedrest orders. Hold OT pending upgraded activity orders. Will re-attempt as schedule permits. Maria Del Carmen Gonzalez OTR/L Normal [facility] TROPONINon 03-04-2025 HS TROPONIN 107.2 pg/mL Critically high 0.0 - 76.2 [facility] Comment on above: Result Comment: { CA LLED TO MARYA MIMS BY LMM @ 0709 { READ BACK BY MARYA MIMS RA 708 Performed By: #### 2 [id number] #### [facility],[address] [address] URINE CULTUREon 03-04-2025 Bacteria identified Cx Nom (U) URINE CULTURE Reference Normal urogenital jess present [ S = SUSCEPTIBLE R = RESISTANT I = INTERMEDIATE S-DD = Susceptible-dose dependent NS = Non-susceptible NO = No Interpretation ] Normal [facility] Comment on above: Performed By: #### L [id number] #### Groover Operator: STEFANIE WARD ([phone]) [facility] ([facility]) [address] [place] [address] Urinalysis complete panel (U )Ordered By: Nolvia Villatoro on 03-04-2025 Bacteria LM.HPF (Urine sed) [#/Area] Negative Negative /HPF [facility] Bilirubin Ql (U) Negative Negative mg/dL [facility] Clarity (U) Clear Clear [facility] Color (U) Light Yellow Lt. Yellow [facility] Epithelial cells.squamous LM.HPF (Urine sed) [#/Area] 0-2 [facility] h Glucose Ql (U) Normal Normal (<70) mg/dL [facility] Hemoglobin Ql (U) Negative Negative mg/dL [facility] Interpretation and review of laboratory results Abnormal [facility] Ketones (U) [Mass/Vol] 20 mg/dL Abnormal Negative [facility] Leukocyte esterase Test strip Ql (U) Negative Negative Sandy/uL [facility] Mucus LM.HPF (Urine sed) [#/Area] Few Negative /LPF [facility] Nitrite Ql (U) Negative Negative [facility] th pH (U) 5.5 [pH] 5.0 - 8.0 pH [facility] Protein (U) [Mass/Vol] 10 mg/dL Abnormal Negative [facility] RBC LM.HPF (Urine sed) [#/Area] Negative [facility] Specific gravity (U) [Rel density] High 1.005 - 1.030 [facility] Urobilinogen (U) [Mass/Vol] Normal Normal (0-1) mg/dL [facility] WBC LM.HPF (Urine sed) [#/Area] 0-2 [facility] Vital signsOrdered By: Zachariah Medina on 03-04-2025 Heart rate 81 /min [email or web address] Phone: MR FOOT W/O LTon 01-11-2025 MR FOOT W/O LT [place] [id number] Patient: BRIGHT KEEN Phone#: : 1970 Age: 54 Gender: M Pt. Type: Out Account: [id number] Location: 052 Ordering: NELL DUKES Exam Date: 01/11/2025/7:48 Family Phys: KANU HALEY Charge Code: [id number] Physician: [place] Order #: [id number] Dose#: PROCEDURE: MRI FOOT LT WITHOUT CONTRAST COMPARISON: None. INDICATIONS: Pain to left 2nd metatarsal head TECHNIQUE: A complete multi-planar examination was performed without contrast. FINDINGS: BONES: There is bipartite medial 1st sesamoid. There is edema in the lateral 1st sesamoid, series 5, image 23 and series 7, image 12. There is mild subchondral edema the distal 1st metatarsal, series 8, image 20. There is edema in the proximal medial cuneiform. No appreciable cortical disruption or hypointense line to suggest fracture. JOINTS: At the 2nd metatarsal phalangeal articulation the lateral collateral ligament is thickened and hyperintense in signal, series 5, image 19 and series 8 image 18. Collateral ligaments at other MTP articulations are maintained in signal and size. EFFUSIONS: There is a small effusion at the 1st MTP joint. TENDONS: Normal. No visible tendinitis, tear, or tenosynovitis. OTHER: At the plantar surface of the foot, deep to the subcutaneous tissues there is a defect in the fascia, series 4, image 20. The defect measures 0.5 x 0.6 cm. The defect is between the 2nd and 3rd metatarsal heads, series 6, image 17. Fat protrudes through the defect to the level of the overlying skin. There is focal signal abnormality within the skin at the plantar surface in this location. These findings are consistent with history of prior puncture wound dislocation. CONCLUSION: 1. Evidence of prior puncture wound with defect of the fascia. Fat protrudes through the defect to the level of the skin. 2. Second MTP lateral collateral ligament thickening and abnormal signal, consistent with chronic partial tear. 3. Abnormal signal in the 1st lateral sesamoid, differential is sesamoiditis versus early osteonecrosis. 4. Subchondral cystic changes in the distal 1st metatarsal. 5. Edema in the medial cuneiform may be secondary to altered weight-bearing. Dictated by: Suzette Harman MD on 01/14/2025 at 15:33 Continued Report - Page 2 of 2 Patient: BRIGHT KEEN Phone#: : 1970 Age: 54 Gender: M Pt. Type: Out Account: [id number] Location: [facility] Ordering: NELL DUKES Exam Date: 01/11/2025/7:48 Family Phys: KANU HALEY Charge Code: [id number] Physician: [place] Order #: [id number] Dose#: Approved by: Suzette Harman MD on 01/14/2025 at 16:02 Normal [facility] Laboratory - Chemistry and C hemistry - challengeon 09-30-2020 Bilirubin Ql (U) Negative Normal [facility] Children[facility].; [employer]. Ketones Ql (U) Negative Normal [facility] [employer].; [employer]. pH (U) 5.0 [pH] Abnormal [employer].; [employer], [employer]. Specific gravity (U) [Rel density] 1.025 Normal [employer].; [employer], [employer]. Urobilinogen Qn (U) 0.2 mg/dL Normal [facility] [employer].; [employer]. Laboratory - Hematology and Cell countson 09-30-2020 Hemoglobin Ql (U) Negative Normal [employer].; [employer]. Laboratory - Specimen inform ationon 09-30-2020 Appearance (U) clear Normal [facility] [employer].; [employer]. Color (U) yellow Normal [employer].; [employer], [employer]. Laboratory - Urinalysison Glucose Test strip (U) [Mass/Vol] Negative Normal [employer].; [employer], [employer]. Leukocyte esterase Test strip Ql (U) Negative Normal [employer].; [employer]. Nitrite Ql (U) Negative Normal [facility] [employer].; [employer]. Protein Ql (U) Negative Normal [facility] [employer].; [employer]. Hemoglobin A1con 06-25-2020 HbA1c (Bld) [Mass fraction] 5.3 % Normal 4.3-5.[address] [facility] Comment on above: Performed By: #### H BA1C #### [facility] Routine Lab [address] [place], [place] [address] HbA1c (Bld) [Mass fraction] 105 mg/dL Normal [facility] Comment on above: Performed By: #### H BA1C #### [facility] Routine Lab [address] [place], [place] [address] Laboratory - Chemistry and C hemistry - challengeon 09-18-2013 Calcium [Mass/Vol] 9.3 mg/dL Normal 8.6 - 10. 3 mg/dL [facility] [employer].; [employer]. Chloride [Moles/Vol] 106 mmol/L Normal 98 - 11 0 mmol/L [employer].; [employer], [employer]. CO2 [Moles/Vol] 23 mmol/L Normal 19 - 30 mmol/L [employer].; [employer] Creatinine [Mass/Vol] 0.98 mg/dL Normal 0.60 - 1.35 mg/dL [employer].; [employer] GFR/1.73 sq M.predicted among blacks MDRD (S/P/Bld) [Vol rate/Area] 107 {ML/MIN/1.73M2} Normal [facility] [employer], [employer].; [employer]imosa, Inc. GFR/1.73 sq M.predicted MDRD (S/P/Bld) [Vol rate/Area] 93 {ML/MIN/1.73M2} Normal [employer], [employer].; [employer] Glucose [Mass/Vol] 90 mg/dL Normal 65 - 99 mg/dL [employer].; [employer], [employer] Potassium [Moles/Vol] 4.1 mmol/L Normal 3.5 - 5.3 mmol/L [facility]; [facility] Sodium [Moles/Vol] 139 mmol/L Normal 135 - 146 mmol/L [facility]; [facility] TSH Qn 3.06 m[IU]/L Normal 0.40 - 4.50 {mIU/L} [facility]; [facility] Urea nitrogen [Mass/Vol] 12 mg/dL Normal 7 - 25 mg/d L [facility]; [facility] Urea nitrogen/Creatinine [Mass ratio] 11.8 mg/mg Normal 6 - 22 [facility]; [facility] Vital Signs Date Time Vital Sign Value Performing Clinician Josephine alves 07-27-2025 14:46-0400 Body height 177.8 cm [employer] PA Work Phone: [facility] 07-27-2025 14:46-0400 Body mass index (BMI) [Ratio] 37.1 kg/m2 [employer] PA Work Phone: [facility] 07-27-2025 14:46-0400 Body weight 117.48 kg Samaresler PA Work Phone: [facility] 07-27-2025 14:46-0400 Diastolic blood pressure 90 mm[Hg] Samaresler PA Work Phone: [facility] 07-27-2025 14:46-0400 Heart rate 73 /min Samaresler PA Work Phone: [facility] 07-27-2025 14:46-0400 Respiratory rate 18 /min [employer] PA Work Phone: [facility] 07-27-2025 14:46-0400 SaO2% (BldA) [Mass fraction] 94 % [employer] PA Work Phone: [facility] 07-27-2025 14:46-0400 Systolic blood pressure 152 mm[Hg] Asher Jesus PA Work Phone: [facility] 07-02-2025 11:47-0400 Diastolic blood pressure 83 mm[Hg] Rama Rodriguez RN Work Phone: [facility] [employer] 07-02-2025 11:47-0400 Systolic blood pressure 139 mm[Hg] Rama Rodriguez RN Work Phone: [facility] [employer] 07-02-2025 11:32-0400 Heart rate 76 /min Rama Rodriguez RN Work Phone: [facility] [employer] 07-02-2025 11:31-0400 Body mass index (BMI) [Ratio] 37.02 kg/m2 Rama Rodriguez RN Work Phone: [facility] [employer] 07-02-2025 11:31-0400 Body weight 117.03 kg Rama Rodriguez RN Work Phone: [facility] [employer] 06-23-2025 13:58-0400 Body temperature 97 [degF] Flavia [email or web address].; [employer] 06-23-2025 13:58-0400 Body weight 117.07 kg Flavia [employer]oleshareRashadAnimalvitae, Inc.; [employer] 06-23-2025 13:58-0400 Diastolic blood pressure 85 mm[Hg] Flavia [facility]areRashadRed [facility] HospitalMimosa, Inc.; [employer] Comment on above: Patient Position: Sitting; Cuff Location : Left Arm; Cuff Size: Standard 06-23-2025 13:58-0400 Heart rate 86 /min Flavia SteenAnimalvitae, Inc.; [employer] Comment on above: Pattern: Regular 06-23-2025 13:58-0400 Inhaled oxygen concentration 21 % Flaviacatracho Steenler WalshMimosa, Inc.; [employer] Comment on above: Room air 06-23-2025 13:58-0400 Respiratory rate 18 /min Flavia [email or web address].; [facility]. Comment on above: Pattern: Unlabored 06-23-2025 13:58-0400 SaO2% (BldA) [Mass fraction] 97 % Flavia Reid [facility].; [facility] 06-23-2025 13:58-0400 Systolic blood pressure 165 mm[Hg] Flavia Solorzano [facility].; [facility]. Comment on above: Patient Position: Sitting; Cuff Location : Left Arm; Cuff Size: Standard 06-18-2025 11:11-0400 Body height 177.8 cm Jayy Francis MD Work Phone: [facility] 06-18-2025 11:11-0400 Body mass index (BMI) [Ratio] 37.62 kg/m2 Jayy Francis MD Work Phone: [facility] 06-18-2025 11:11-0400 Body weight 118.93 kg Jayy Franics MD Work Phone: [facility] 06-18-2025 11:11-0400 Diastolic blood pressure 76 mm[Hg] Jayy Francis MD Work Phone: [facility] 06-18-2025 11:11-0400 Heart rate 73 /min Jayy Francis MD Work Phone: [facility] 06-18-2025 11:11-0400 SaO2% (BldA) [Mass fraction] 98 % Jayy Francis MD Work Phone: [facility] 06-18-2025 11:11-0400 Systolic blood pressure 146 mm[Hg] Jayy Francis MD Work Phone: [facility] 06-18-2025 10:15-0400 Diastolic blood pressure 73 mm[Hg] Rama Rodriguez RN Work Phone: [facility] 06-18-2025 10:15-0400 Systolic blood pressure 128 mm[Hg] Rama Rodriguez RN Work Phone: [facility] 06-18-2025 10:06-0400 Heart rate 74 /min Rama Rodriguez RN Work Phone: [facility] 06-11-2025 15:05-0400 Body mass index (BMI) [Ratio] 37.1 kg/m2 Luke Ann Marie PA Work Phone: [facility] 06-11-2025 15:04-0400 Body height 177.8 cm Luke Ann Marie PA Work Phone: [facility] 06-11-2025 15:04-0400 Body weight 117.48 kg Luke Ann Marie PA Work Phone: [facility] 06-11-2025 14:23-0400 Diastolic blood pressure 90 mm[Hg] Luke Ann Marie PA Work Phone: [facility] 06-11-2025 14:23-0400 Heart rate 77 /min Luke Ann Marie PA Work Phone: [facility] 06-11-2025 14:23-0400 SaO2% (BldA) [Mass fraction] 98 % Luke Ann Marie PA Work Phone: [facility] 06-11-2025 14:23-0400 Systolic blood pressure 160 mm[Hg] Luke Ann Marie PA Work Phone: [facility] 06-08-2025 11:49-0400 Diastolic blood pressure 76 mm[Hg] Rama Rodriguez RN Work Phone: [facility] 06-08-2025 11:49-0400 Systolic blood pressure 141 mm[Hg] Rama Rodriguez RN Work Phone: [facility] [employer] 06-08-2025 11:04-0400 Body mass index (BMI) [Ratio] 36.67 kg/m2 Rama Rodriguez RN Work Phone: [facility] [employer] 06-08-2025 11:04-0400 Body weight 115.94 kg Rama Rodriguez RN Work Phone: [facility] [employer] 06-08-2025 11:04-0400 Heart rate 76 /min Rama Rodriguez RN Work Phone: [facility] 05-25-2025 11:15-0400 Body mass index (BMI) [Ratio] 36.59 kg/m2 Cullen Lawrence RN [facility] 05-25-2025 11:15-0400 Body weight 115.67 kg Cullen Lawrence RN [facility] 05-25-2025 11:15-0400 Diastolic blood pressure 84 mm[Hg] Cullen Lawrence RN [facility] 05-25-2025 11:15-0400 Heart rate 70 /min Cullen Lawrence RN [facility] 05-25-2025 11:15-0400 Systolic blood pressure 142 mm[Hg] Cullen Lawrence RN [facility] 05-18-2025 11:27-0400 Body mass index (BMI) [Ratio] 36.56 kg/m2 Marla Godios formerly [facility] Work Phone: [facility] 05-18-2025 11:27-0400 Body weight 115.58 kg Marla Godios formerly [facility] Work Phone: [facility] 05-18-2025 11:27-0400 Diastolic blood pressure 79 mm[Hg] Marla Godios formerly [facility] Work Phone: [facility] 05-18-2025 11:27-0400 Heart rate 79 /min Marla Godios formerly [facility] Work Phone: [facility] 05-18-2025 11:27-0400 Systolic blood pressure 127 mm[Hg] Marla Godios formerly [facility] Work Phone: [facility] 05-11-2025 11:24-0400 Body mass index (BMI) [Ratio] 36.45 kg/m2 Jacek Alvarado APRN - [employer]END[employer] Work Phone: [facility] 05-11-2025 11:24-0400 Body weight 115.21 kg Jacek Alvarado APRN - [employer] ATTENDANT Work Phone: [facility] 05-11-2025 11:24-0400 Diastolic blood pressure 80 mm[Hg] Jacek Alvarado APRN - [employer] ATTENDANT Work Phone: [facility] [employer] 05-11-2025 11:24-0400 Heart rate 86 /min Jacek Christiano EHS ENGINEER - PARKING LOT ATTENDANT Work Phone: [facility] [employer] 05-11-2025 11:24-0400 Systolic blood pressure 138 mm[Hg] Jacek Christiano BEARD - PARKING LOT ATTENDANT Work Phone: [facility] [employer] 05-11-2025 10:10-0400 Body mass index (BMI) [Ratio] 36.65 kg/m2 Cullen Lawrence RN [facility] [employer] 05-11-2025 10:10-0400 Body weight 115.85 kg Cullen Lawrence RN [facility] [employer] 05-11-2025 10:10-0400 Diastolic blood pressure 82 mm[Hg] Cullen Lawrence RN [facility] [employer] 05-11-2025 10:10-0400 Heart rate 80 /min Cullen Lawrence RN [facility] [employer] 05-11-2025 10:10-0400 Systolic blood pressure 149 mm[Hg] Cullen Lawrence RN [facility] [employer] 05-03-2025 12:47-0400 Body temperature 97.9 [degF] Patricia Jensener DO Work Phone: [facility] [employer] 05-03-2025 12:47-0400 Diastolic blood pressure 76 mm[Hg] Patricia Jensener DO Work Phone: [facility] [employer] 05-03-2025 12:47-0400 Heart rate 75 /min Patricia Jensener DO Work Phone: [facility] [employer] 05-03-2025 12:47-0400 Respiratory rate 16 /min Patricia Artemio DO Work Phone: [facility] [employer] 05-03-2025 12:47-0400 SaO2% (BldA) [Mass fraction] 96 % Patricia Artemio DO Work Phone: [facility] [employer] 05-03-2025 12:47-0400 Systolic blood pressure 135 mm[Hg] Patricia Artemio DO Work Phone: [facility] [employer] 05-03-2025 04:26-0400 Body mass index (BMI) [Ratio] 37.28 kg/m2 Patricia Artemio DO Work Phone: [facility] [employer] 05-03-2025 04:26-0400 Body weight 117.84 kg Patricia Ulloa DO Work Phone: [facility] [employer] 04-28-2025 13:39-0400 SaO2% (BldA) [Mass fraction] 98.5 % Patricia Ulloa DO Work Phone: [facility] [employer] 04-28-2025 12:56-0400 Body height 177.8 cm Patricia Ulloa DO Work Phone: [facility] [employer] 04-15-2025 09:40-0400 Diastolic blood pressure 90 mm[Hg] Patricia Ulloa DO Work Phone: [facility] [employer] 04-15-2025 09:40-0400 Systolic blood pressure 142 mm[Hg] Patricia Ulloa DO Work Phone: [facility] [employer] 04-15-2025 09:38-0400 Body height 177.8 cm Patricia Ulloa DO Work Phone: [facility] [employer] 04-15-2025 09:38-0400 Body mass index (BMI) [Ratio] 37.45 kg/m2 Patricia Ulloa DO Work Phone: [facility] [employer] 04-15-2025 09:38-0400 Body weight 118.39 kg Patricia Ulloa DO Work Phone: [facility] [employer] 04-15-2025 09:38-0400 Heart rate 64 /min Patricia Ulloa DO Work Phone: [facility] [employer] 04-06-2025 14:00-0400 Diastolic blood pressure 89 mm[Hg] Shilpa Jackson MD Work Phone: [facility] [employer] 04-06-2025 14:00-0400 Heart rate 70 /min Shilpa Jackson MD Work Phone: [facility] [employer] 04-06-2025 14:00-0400 Respiratory rate 14 /min Shilpa Jackson MD Work Phone: [facility] [employer] 04-06-2025 14:00-0400 SaO2% (BldA) [Mass fraction] 99 % Shilpa Jackson MD Work Phone: [facility] [employer] 04-06-2025 14:00-0400 Systolic blood pressure 132 mm[Hg] Shilpa Jackson MD Work Phone: [facility] [employer] 04-06-2025 11:08-0400 Body temperature 97.9 [degF] Shilpa Jackson MD Work Phone: [facility] [employer] 03-30-2025 14:24-0400 Body height 177.8 cm Patricia Ulloa DO Work Phone: [facility] [employer] 03-30-2025 14:24-0400 Body mass index (BMI) [Ratio] 37.64 kg/m2 Patricia Ulloa DO Work Phone: [facility] [employer] 03-30-2025 14:24-0400 Body weight 119 kg Patricia Ulloa DO Work Phone: [facility] [employer] 03-30-2025 14:24-0400 Diastolic blood pressure 84 mm[Hg] Patricia Ulloa DO Work Phone: [facility] [employer] 03-30-2025 14:24-0400 Heart rate 74 /min Patricia Ulloa DO Work Phone: [facility] [employer] 03-30-2025 14:24-0400 SaO2% (BldA) [Mass fraction] 94 % Patricia Ulloa DO Work Phone: [facility] [employer] 03-30-2025 14:24-0400 Systolic blood pressure 130 mm[Hg] Patricia Ulloa DO Work Phone: [facility] [employer] 03-30-2025 14:17-0400 Body height 177.8 cm Shilpa Jackson MD Work Phone: [facility] [employer] 03-30-2025 14:17-0400 Body mass index (BMI) [Ratio] 37.77 kg/m2 Shilpa Jackson MD Work Phone: [facility] [employer] 03-30-2025 14:17-0400 Body weight 119.39 kg Shilpa Jackson MD Work Phone: [facility] 03-30-2025 14:17-0400 Diastolic blood pressure 84 mm[Hg] Shilpa Jackson MD Work Phone: [facility] 03-30-2025 14:17-0400 Heart rate 74 /min Shilpa Jackson MD Work Phone: [facility] 03-30-2025 14:17-0400 SaO2% (BldA) [Mass fraction] 94 % Shilpa Jackson MD Work Phone: [facility] 03-30-2025 14:17-0400 Systolic blood pressure 130 mm[Hg] Shilpa Jackson MD Work Phone: [facility] 03-11-2025 08:21-0400 Body height 172.72 cm Trina Villa [facility] [employer] 03-11-2025 08:21-0400 Body mass index (BMI) [Ratio] 40.14 kg/m2 Trina Villa [facility], Inc.; [employer], [facility]. 03-11-2025 08:21-0400 Body surface area Derived from formula 2.3 m2 Trina Villa [facility] [employer] [facility], Inc.; [employer], [facility]. 03-11-2025 08:21-0400 Body weight 119.75 kg Trina Miqueltj [facility] [employer] 03-11-2025 08:21-0400 Diastolic blood pressure 85 mm[Hg] Trina Villa [facility] [employer] [facility], Inc.; [employer], [employer]. Comment on above: Patient Position: Sitting; Cuff Location : Left Arm; Cuff Size: Standard 03-11-2025 08:21-0400 Heart rate 87 /min [facility] [employer], [employer] Comment on above: Pattern: Regular 03-11-2025 08:21-0400 Systolic blood pressure 130 mm[Hg] Trina Villa [facility] [employer] [facility], Inc.; [employer] Comment on above: Patient Position: Sitting; Cuff Location : Left Arm; Cuff Size: Standard 03-06-2025 13:130400 Body temperature 98.29 [degF] Jadiel Wellington DO Work Phone: [facility] [employer] 03-06-2025 13:13-0400 Diastolic blood pressure 73 mm[Hg] Jadiel Wellington DO Work Phone: [facility] [employer] 03-06-2025 13:13-0400 Heart rate 77 /min Jadiel Wellington DO Work Phone: [facility] [employer] 03-06-2025 13:13-0400 Respiratory rate 15 /min Jadiel Wellington DO Work Phone: [facility] [employer] 03-06-2025 13:13-0400 SaO2% (BldA) [Mass fraction] 97 % Jadiel Wellington DO Work Phone: [facility] [employer] 03-06-2025 13:13-0400 Systolic blood pressure 110 mm[Hg] Jadiel Wellington DO Work Phone: [facility] [employer] 03-05-2025 14:22-0400 Body height 177.8 cm Jadiel Wellington DO Work Phone: [facility] [employer] 03-05-2025 14:22-0400 Body mass index (BMI) [Ratio] 38.88 kg/m2 Jadiel Wellington DO Work Phone: [facility] [employer] 03-05-2025 14:22-0400 Body weight 122.92 kg Jadiel Wellington DO Work Phone: [facility] [employer] 06-07-2022 08:05-0400 Body height 172.72 cm Mihaela Mitra [facility], [facility].; [employer] [facility], [facility]. 06-07-2022 08:05-0400 Body mass index (BMI) [Ratio] 41.36 kg/m2 Mihaela Mitra [facility], Inc.; [place] [employer] [facility], Inc[employer] 06-07-2022 08:05-0400 Body surface area Derived from formula 2.33 m2 Mihaela Manriquez [facility], Inc.; [employer] [facility], [facility]. 06-07-2022 08:05-0400 Body weight 123.38 kg Mihaela Manriquez [facility], Inc.; [facility] Inc. 06-07-2022 08:05-0400 Diastolic blood pressure 86 mm[Hg] Mihaela Manriquez [facility], [employer]. Comment on above: Patient Position: Sitting; Cuff Location : Left Arm; Cuff Size: Large 06-07-2022 08:05-0400 Heart rate 69 /min Mihaela Manriquez [facility], Inc.; [employer] Comment on above: Pattern: Regular 06-07-2022 08:05-0400 Systolic blood pressure 137 mm[Hg] Mihaela Manriquez [facility] [email or web address], Inc.; [employer], [employer]. Comment on above: Patient Position: Sitting; Cuff Location : Left Arm; Cuff Size: Large 04-27-2021 08:13-0400 Body height 172.72 cm Nohelia Palacios LPN [facility], [facility].; [employer], [employer]. 04-27-2021 08:13-0400 Body mass index (BMI) [Ratio] 41.05 kg/m2 Nohelia Palacios LPN [facility], [facility].; [employer], [employer]. 04-27-2021 08:13-0400 Body surface area Derived from formula 2.32 m2 Nohelia Palacios LPN [facility], [facility].; [employer], [facility]. 04-27-2021 08:13-0400 Body weight 122.47 kg Nohelia Palacios LPN [facility], [facility].; [employer], [employer]. 04-27-2021 08:13-0400 Diastolic blood pressure 85 mm[Hg] Nohelia Palacios LPN [facility], [facility].; [employer], [employer]. Comment on above: Patient Position: Sitting; Cuff Location : Left Arm; Cuff Size: Standard 04-27-2021 08:13-0400 Heart rate 67 /min Nohelia Palacios LPN [place] [employer] [facility], [facility].; [employer]. Comment on above: Pattern: Regular 04-27-2021 08:13-0400 Systolic blood pressure 139 mm[Hg] Nohelia Palacios LPN [place] [employer] [facility], [facility].; [employer]. Comment on above: Patient Position: Sitting; Cuff Location : Left Arm; Cuff Size: Standard 10-30-2020 10:23-0400 Body height 172.72 cm Nohelia Palacios LPN [facility], Inc.; [employer] [facility], [facility]. 09-30-2020 10:23-0400 Body mass index (BMI) [Ratio] 40.6 kg/m2 Nohelia Palacios LPN [facility], Inc.; [email or web address] 09-30-2020 10:23-0400 Body surface area Derived from formula 2.31 m2 Nohelia Palacios LPN [facility], Inc.; [employer] 09-30-2020 10:23-0400 Body weight 121.11 kg Nohelia Palacios LPN [facility], Inc.; [employer], [facility]. 09-30-2020 10:23-0400 Diastolic blood pressure 92 mm[Hg] Nohelia Palacios LPN [facility], Inc.; [employer] Comment on above: Patient Position: Sitting; Cuff Location : Left Arm; Cuff Size: Standard 09-30-2020 10:23-0400 Heart rate 67 /min Nohelia Palacios LPN [facility], [facility].; [employer], [employer]. Comment on above: Pattern: Regular 09-30-2020 10:23-0400 Systolic blood pressure 137 mm[Hg] Nohelia Palacios LPN [facility], [facility].; [employer], [employer]. Comment on above: Patient Position: Sitting; Cuff Location : Left Arm; Cuff Size: Standard 07-01-2020 08:27-0400 Body height 172.72 cm Nohelia Palacios LPN [facility], [facility].; [email or web address] 07-01-2020 08:27-0400 Body mass index (BMI) [Ratio] 40.6 kg/m2 Nohelia Palacios LPN [facility], [facility].; [employer] [facility], [facility]. 07-01-2020 08:27-0400 Body surface area Derived from formula 2.31 m2 Noheila Palacios LPN [facility], [facility].; [employer], [facility]. 07-01-2020 08:27-0400 Body weight 121.11 kg Nohelia Palacios LPN [place] [employer] [facility], [facility].; [employer], [facility]. 07-01-2020 08:27-0400 Diastolic blood pressure 103 mm[Hg] Nohelia Palacios LPN [facility], Inc.; [email or web address], [employer]. Comment on above: Patient Position: Sitting; Cuff Location : Left Arm; Cuff Size: Standard 07-01-2020 08:27-0400 Heart rate 73 /min Nohelia Palacios LPN [facility], Inc.; [employer], [employer]. Comment on above: Pattern: Regular 07-01-2020 08:27-0400 Systolic blood pressure 147 mm[Hg] Nohelia Palacios LPN [facility], [facility].; [email or web address] Comment on above: Patient Position: Sitting; Cuff Location : Left Arm; Cuff Size: Standard 12-14-2019 10:33-0500 Body height 172.72 cm Nohelia Palacios LPN [facility], [facility].; [place] [employer] [facility], Inc[employer] 12-14-2019 10:33-0500 Body mass index (BMI) [Ratio] 38.92 kg/m2 Nohelia Palacios UPPER CASER [facility], [facility].; [place] [email or web address] 12-14-2019 10:33-0500 Body surface area Derived from formula 2.27 m2 Nohelia Palacios LPN [facility], [facility].; [place] [employer] [facility], Inc. 12-14-2019 10:33-0500 Body temperature 97.7 [degF] Nohelia Palacios LPN [facility], [facility].; [employer], [employer]. Comment on above: Method: Tympanic 12-14-2019 10:33-0500 Body weight 116.12 kg Nohelia Palacios LPN [facility], [facility].; [place] [employer] [facility], Inc[employer] 12-14-2019 10:33-0500 Diastolic blood pressure 109 mm[Hg] Nohelia Palacios LPN [facility], [facility].; [employer], [employer]. Comment on above: Patient Position: Sitting; Cuff Location : Left Arm; Cuff Size: Standard 12-14-2019 10:33-0500 Heart rate 91 /min Nohelia Palacios LPN [facility], Inc.; [employer], [employer]. Comment on above: Pattern: Regular 12-14-2019 10:33-0500 Systolic blood pressure 154 mm[Hg] Nohelia Palacios LPN [facility] Inc.; [employer]. Comment on above: Patient Position: Sitting; Cuff Location : Left Arm; Cuff Size: Standard 08-14-2019 09:54-0400 Body height 172.72 cm Richelle Armaslabach [facility], Inc.; [employer] 08-14-2019 09:54-0400 Body mass index (BMI) [Ratio] 40.6 kg/m2 Richelle Nunez [facility] [facility], Inc.; [employer] 08-14-2019 09:54-0400 Body surface area Derived from formula 2.31 m2 Richelle Nunez [facility], Inc.; [employer] 08-14-2019 09:54-0400 Body weight 121.11 kg Richelle Nunez [facility], Inc.; [employer] 08-14-2019 09:54-0400 Diastolic blood pressure 85 mm[Hg] Richelle Nunez [facility] [employer] [facility], Inc.; [employer] Comment on above: Patient Position: Sitting; Cuff Location : Left Arm; Cuff Size: Standard 08-14-2019 09:54-0400 Heart rate 65 /min Richelle Nunez Flor [facility], Inc.; [employer] Comment on above: Pattern: Regular 08-14-2019 09:54-0400 Systolic blood pressure 138 mm[Hg] Richelle Nunez [facility] [facility], Inc.; [employer] Comment on above: Patient Position: Sitting; Cuff Location : Left Arm; Cuff Size: Standard 06-29-2019 12:04-0400 Body height 172.72 cm Stephany Sandoval Scottie UPPER CASER [place] [facility], Inc.; [employer] 06-29-2019 12:04-0400 Body mass index (BMI) [Ratio] 39.99 kg/m2 Stephany Sandoval [facility], Inc.; [employer] 06-29-2019 12:04-0400 Body surface area Derived from formula 2.3 m2 TangelaLori Rubin [facility], Inc.; [employer], [employer]. 06-29-2019 12:04-0400 Body weight 119.3 kg Stephany Rubin [facility], Inc.; [employer], [employer]. 06-29-2019 12:04-0400 Diastolic blood pressure 104 mm[Hg] Stephany Rubin UPPER CASER [place] [facility], Inc.; [employer], [employer]. Comment on above: Patient Position: Sitting; Cuff Location : Left Arm; Cuff Size: Large 06-29-2019 12:04-0400 Heart rate 80 /min Stephany Rubin [facility], Inc.; [employer], [employer]. Comment on above: Pattern: Regular 06-29-2019 12:04-0400 Systolic blood pressure 157 mm[Hg] [facility] [employer], [employer]. Comment on above: Patient Position: Sitting; Cuff Location : Left Arm; Cuff Size: Large 09-18-2013 15:49-0400 Body height 172.72 cm Saadia Beltran UPPER CASER [place] [facility], Inc.; [employer] 09-18-2013 15:49-0400 Body mass index (BMI) [Ratio] 39.08 kg/m2 Saadia Beltran LPN [facility], Inc.; [employer] 09-18-2013 15:49-0400 Body surface area Derived from formula 2.27 m2 Saadia Beltran LPN [place] [facility], Inc.; [employer] 09-18-2013 15:49-0400 Body weight 116.58 kg Saadia Beltran LPN [place] [email or web address], [employer], [employer]. 09-18-2013 15:49-0400 Diastolic blood pressure 95 mm[Hg] Saadia Beltran UPPER CASER [employer], [employer]. Comment on above: Patient Position: Sitting; Cuff Location : Right Arm; Cuff Size: Large 09-18-2013 15:49-0400 Heart rate 66 /min Saadia Beltran LPN [place] [facility], Inc.; [employer]. Comment on above: Pattern: Regular 09-18-2013 15:49-0400 Systolic blood pressure 146 mm[Hg] Saadia Reid [place] [facility], [facility].; [place] [facility]. Comment on above: Patient Position: Sitting; Cuff Location : Right Arm; Cuff Size: Large 08-30-2011 13:42-0400 Body height 172.72 cm [facility], Inc.; [employer] 08-30-2011 13:42-0400 Body mass index (BMI) [Ratio] 38.77 kg/m2 [facility], [facility].; [place] [facility], [facility]. 08-30-2011 13:42-0400 Body surface area Derived from formula 2.27 m2 Apple L [facility], [facility].; [employer], [facility]. 08-30-2011 13:42-0400 Body weight 115.67 kg Apple L [facility], [facility].; [employer]. 08-30-2011 13:42-0400 Diastolic blood pressure 91 mm[Hg] Apple L [place], [facility].; [employer]. Comment on above: Patient Position: Sitting; Cuff Location : Left Arm; Cuff Size: Standard 08-30-2011 13:42-0400 Heart rate 86 /min Apple L [facility], [facility].; [employer]. Comment on above: Pattern: Regular 08-30-2011 13:42-0400 Systolic blood pressure 148 mm[Hg] Apple L Ric[facility]t [facility], [facility].; [employer]. Comment on above: Patient Position: Sitting; Cuff Location : Left Arm; Cuff Size: Standard Encounters Encounter Date Encounter Type Care Provider Facility Start: 08-17-2025 ambulatory Asher Dailey ty:[facility] Start: 07-29-2025 End: 07-29-2025 Historical Summary Asher Jesus PA-C Work Phone: [place] [email or web address] Start: 07-28-2025 End: 07-28-2025 Orders Asher Jesus PA-C Work Phone[facility] Start: 07-27-2025 End: 07-27-[address] Yony Soto MD -[facility] Work Phone: Start: 07-27-2025 End: 07-27-2025 ambulatory Luke Ann Marie PA Work Phone: -[facility] Start: 07-20-2025 End: 07-21-2025 Anticoagulant drug monitoring Luke Ann Marie PA-C Work Phone[facility] Start: 07-13-2025 End: 07-13-2025 Orders Luke Ann Marie PA-C Work Phone: [facility] Start: 07-12-2025 [facility] Start: 07-02-2025 End: 07-02-2025 ambulatory ZACHARIAH ANKIT [facility] Start: 07-02-2025 End: 07-02-2025 Anticoagulant drug monitoring Zachariah Pham MD Work Phone: [facility] Comment on above: Severe aortic stenos is (Primary Dx); S/P AVR (aortic valve replacement) Start: 06-28-2025 End: 07-01-2025 ambulatory Luke Ann Marie PA Work Phone: [facility] Start: 06-28-2025 End: 07-01-2025 Discharged Recurring Luke Ann Marie PA Work Phone: -[facility] Work Phone: Start: 06-23-2025 End: 06-23-2025 Office outpatient visit 15 minutes Luke Ann Marie PA-C Work Phone: [employer] Start: 06-18-2025 End: 06-18-2025 Office outpatient new 45 minutes Jayy Francis MD Work Phone: [facility] Cardiology - [place] Comment on above: Cryptogenic stroke ( HCC) (Primary Dx); Postoperative atrial fibrillation (HCC); Status post mechanical aortic valve replacement; Primary hypertension; Other hyperlipidemia; Coronary artery disease involving [place] coronary artery of [place] heart without angina pectoris; History of surgical closure of patent foramen ovale (PFO); Bicuspid aortic valve Start: 06-18-2025 End: 06-18-2025 Anticoagulant drug monitoring Zachariah Pham MD Work Phone: [facility] Comment on above: Severe aortic stenos is (Primary Dx); S/P AVR (aortic valve replacement) Start: 06-18-2025 End: 06-18-2025 [facility] Start: 06-11-2025 End: 06-11-2025 ambulatory Asher Jesus PA Work Phone: -[facility] Start: 06-11-2025 End: 06-11-2025 Patient encounter procedure Asher Ann Marie PA Work Phone: -[facility] Work Phone: Start: 06-11-2025 End: 06-11-2025 ambulatory [facility] Facility:[facility] Start: 06-08-2025 End: 06-08-2025 Anticoagulant drug monitoring Zachariah Pham MD Work Phone: [facility] Comment on above: Severe aortic stenos is (Primary Dx); S/P AVR (aortic valve replacement) Start: 06-08-2025 End: 06-08-2025 [facility] Start: 06-01-2025 End: 06-01-2025 Telephone encounter Astrid Monet RN [facility] Trauma Neuro Progressive Care Unit PCU 3W Comment on above: Hospital Follow-up ( 90 day mRS) Hospital Follow-up ( 90 day mRS=0) Start: 06-01-2025 End: 06-01-2025 Postop follow up visit related to original px Jacek Pollack CNP Work Phone: [facility] Cardiovascular Thoracic Surgery - [place] Comment on above: Severe aortic stenos is (Primary Dx); S/P AVR (aortic valve replacement) Start: 06-01-2025 End: 06-01-2025 [facility] Start: 05-25-2025 End: 05-25-2025 Anticoagulant drug monitoring Zachariah Pham MD Work Phone: [facility] Comment on above: Severe aortic stenos is (Primary Dx); Status post mechanical aortic valve replacement Start: 05-25-2025 End: 05-25-2025 [facility] Start: 05-18-2025 End: 05-18-2025 Anticoagulant drug monitoring Zachariah Pham MD Work Phone: [facility] Anticoagulation Management Service Comment on above: Severe aortic stenos is (Primary Dx); Status post mechanical aortic valve replacement Start: 05-18-2025 End: 05-18-2025 [facility] Start: 05-15-2025 End: 05-21-2025 ambulatory Meeta Reynolds RN [facility] Clinical Communication Start: 05-15-2025 End: 05-21-2025 Patient encounter procedure Meeta Reynolds RN [facility] Clinical Communication Start: 05-15-2025 End: 05-15-2025 Telephone encounter Concha Farley EHS ENGINEER - [employer]ING [employer] ATTENDANT Work Phone: [facility] Start: 05-11-2025 End: 05-11-2025 [facility] Start: 05-11-2025 End: 05-11-2025 Postop follow up visit related to original px Jacek Alvarado EHS ENGINEER - [employer] ATTENDANT Work Phone: [facility] Thoracic [facility] [place] Comment on above: Severe aortic stenos is (Primary Dx); Status post mechanical aortic valve replacement Start: 05-11-2025 End: 05-11-2025 ambulatory [facility] Start: 05-11-2025 End: 05-11-2025 Anticoagulant drug monitoring Zachariah Pham MD Work Phone: [facility] Anticoagulation Management Service Comment on above: Severe aortic stenos is (Primary Dx); Status post mechanical aortic valve replacement Start: 05-06-2025 End: 05-06-2025 ambulatory [facility] Start: 05-05-2025 End: 05-05-2025 Telephone follow-up Asher Jesus PA-C Work Phone: [facility]. Start: 05-05-2025 End: 05-05-2025 ambulatory Kojo PHAM Sumit [facility] Start: 05-03-2025 End: 05-03-2025 Anticoagulant drug monitoring Jenae Delcid [facility] Anticoagulation Management Service Comment on above: Severe aortic stenos is (Primary Dx) Severe aortic stenos is (Primary Dx); Status post mechanical aortic valve replacement Start: 04-28-2025 End: 05-03-2025 Encounter for other preprocedural examination PATRICIA ULLOA [facility] Start: 04-28-2025 End: 05-03-2025 Evaluation and management of inpatient Patricia Jensenmonster SEGURA Work Phone: [facility] Cardiac Thoracic Vascular Intensive Care Unit CTV ICU T1 Comment on above: Post-op pain (Primar y Dx); Preoperative clearance; Aortic stenosis, severe; Nonrheumatic aortic (valve) stenosis Start: 04-28-2025 End: 05-03-2025 Preoperative state Patricia Artemio SEGURA Work Phone: [facility] Start: 04-21-2025 End: 04-21-2025 ambulatory [facility] Start: 04-20-2025 End: 04-20-2025 ambulatory [facility] Start: 04-20-2025 End: 04-20-2025 Anticoagulant drug monitoring Jenae Delcid [facility] Anticoagulation Management Service Comment on above: Severe aortic stenos is (Primary Dx) Start: 04-16-2025 End: 04-16-2025 Admission to same day surgery center Jacek Pollack CNP Work Phone: [facility] Comment on above: Aortic stenosis, sev ere (Primary Dx); Preoperative clearance Start: 04-16-2025 End: 04-16-2025 ambulatory Jacek Pollack CNP Work Phone: [facility] [place] Start: 04-16-2025 End: 04-16-2025 Preoperative state Jacek Alvarado EHS ENGINEER - [employer] ATTENDANT Work Phone: [facility] [employer] Work Phone: Start: 04-16-2025 End: 04-19-2025 Telephone encounter Patricia Ulloa DO Work Phone: [facility] [place] Comment on above: Surgery Scheduling Referral Start: 04-15-2025 End: 04-15-2025 Office outpatient visit 25 minutes Patricia Ulloa DO Work Phone: [facility] Thor[facility] [place] Comment on above: Severe aortic stenos is (Primary Dx); Chronic diastolic (congestive) heart failure (HCC) Start: 04-15-2025 End: 04-15-2025 ambulatory ASHER JESUS [facility] Start: 04-06-2025 End: 04-06-2025 ambulatory SHILPA JACKSON [facility] Start: 04-06-2025 End: 04-06-2025 Subsequent hospital visit by physician Shilpa Jackson MD Work Phone: [facility] Comment on above: Nonrheumatic aortic valve stenosis Start: 04-05-2025 End: 04-05-2025 ambulatory Nohelia Kinsey EHS ENGINEER - [employer] ATTENDANT [facility] Start: 04-01-2025 End: 04-01-2025 ambulatory SHILPA JACKSON [facility] Start: 03-31-2025 End: 04-01-2025 Telephone encounter Shilpa Jackson MD Work Phone: [facility] Cardiology - [place] Start: 03-30-2025 End: 03-30-2025 Office consultation new/estab patient 80 min Patricia Ulloa DO Work Phone: [facility] Cardiology [facility] Comment on above: Stroke-like symptoms (Primary Dx); Severe aortic stenosis; Primary hypertension; Other hyperlipidemia Start: 03-30-2025 End: 03-30-2025 Office outpatient new 60 minutes Shilpa Jackson MD Work Phone: [facility] Cardiology [facility] [place] Comment on above: Nonrheumatic aortic valve stenosis Start: 03-30-2025 End: 03-30-2025 ambulatory PATRICIA ULLOA [facility] Start: 03-30-2025 End: 03-30-2025 Subsequent hospital visit by physician Adia Pollack CNP Work Phone: [facility] Non-Invasive Cardiology Comment on above: Transient cerebral i schemia, unspecified type Start: 03-30-2025 End: 03-30-2025 ambulatory ADIA VENTURA [facility] Start: 03-11-2025 End: 03-11-2025 Office outpatient visit 25 minutes Asher Jesus PA-C Work Phone: [employer] Start: 03-11-2025 Review Asher hook PA-C Work Phone: [employer] Start: 03-10-2025 End: 03-15-2025 Telephone encounter Astrid Monet RN [facility] Trauma Neuro Progressive Care Unit PCU 3W Comment on above: Hospital Follow-up Start: 03-08-2025 End: 03-08-2025 Telephone follow-up Asher Jesus PA-C Work Phone: [employer] Start: 03-06-2025 End: 03-06-2025 Telephone encounter Chad Holcomb MD Work Phone: [facility] Internal Medicine [facility] Start: 03-04-2025 End: 03-06-2025 Evaluation and management of inpatient Jadiel Soni Amihs SEGURA Work Phone: [facility] Trauma Neuro Progressive Care Unit PCU 3W Comment on above: Stroke-like symptoms (Primary Dx); Stroke determined by clinical assessment (HCC); Nonrheumatic aortic valve stenosis Start: 03-04-2025 End: 03-04-2025 Emergency department patient visit CHAD LEMA [facility] Start: 01-11-2025 End: 01-11-2025 ambulatory [facility] Start: 06-07-2022 End: 06-07-2022 Office outpatient visit 15 minutes Luke Ann Marie PA-C Work Phone: [employer]. Start: 04-27-2021 End: 04-27-2021 Office outpatient visit 15 minutes Luke Ann Marie PA-C Work Phone: [employer]. Start: 09-30-2020 End: 09-30-2020 Historical Summary Luke Ann Marie PA-C Work Phone: [employer]. Start: 09-30-2020 End: 09-30-2020 Office outpatient visit 15 minutes Luke Ann Marie PA-C Work Phone: [employer]. Start: 09-13-2020 End: 09-13-2020 Telephone follow-up Luke Ann Marie PA-C Work Phone: [employer] Start: 07-01-2020 End: 07-01-2020 Office outpatient visit 15 minutes Luke Ann Marie PA-C Work Phone: [employer]. Start: 12-14-2019 End: 12-14-2019 Office outpatient visit 15 minutes Luke Ann Marie PA-C Work Phone: [employer] Start: 08-14-2019 End: 08-14-2019 Office outpatient visit 15 minutes Luke Ann Marie PA-C Work Phone: [employer]. Start: 06-29-2019 End: 06-29-2019 Office outpatient visit 25 minutes Luke Ann Marie PA-C Work Phone: [employer]. Start: 09-18-2013 End: 09-19-2013 Orders Luke Ann Marie PA-C Work Phone: [employer]. Start: 09-18-2013 End: 09-18-2013 Patient encounter procedure Luke Ann Marie PA-C Work Phone: [employer]. Start: 08-30-2011 End: 08-31-2011 Patient encounter procedure Luke Ann Marie PA-C Work Phone: [facility]. Procedures Date Procedure Procedure Detail Performing Clinician Start: 07-28-2025 End: 07-28-2025 Anticoagulant mgmt for pt taking warfarin Luke Chasity CoombsAnn Marie PA-C Work Phone: Start: 07-27-2025 End: 07-27-2025 Most Recent Cardio Report Asher Gorman er PA-C Work Phone: Start: 07-20-2025 End: 07-20-2025 Anticoagulant mgmt for pt taking warfarin Luke E Ann Marie PA-C Work Phone: Start: 07-13-2025 End: 07-13-2025 Anticoagulant mgmt for pt taking warfarin Luke E Ann Marie PA-C Work Phone: Start: 07-02-2025 Prothrombin time Zachariah Pham MD Work Phone: Start: 06-18-2025 Ecg routine ecg w/le ast 12 lds w/i&r Jayy Francis MD Work Phone: Start: 06-18-2025 Prothrombin time Zachariah Pham MD Work Phone: Start: 06-08-2025 Prothrombin time Zachariah Pham MD Work Phone: Start: 05-25-2025 Prothrombin time Zachariah Pham MD Work Phone: Start: 05-18-2025 Prothrombin time Zachariah Pham MD Work Phone: Start: 05-11-2025 Prothrombin time Zachariah Pham MD Work Phone: Start: 05-03-2025 Ecg routine ecg w/le ast 12 lds trcg only w/o i&r Carlos Royal EHS ENGINEER - [employer] ATTENDANT Work Phone: Start: 05-03-2025 Radiologic exam ches t single view Jacek Alvarado EHS ENGINEER - [employer] ATTENDANT Work Phone: Start: 05-03-2025 Basic metabolic pane l calcium total Jacek Alvarado EHS ENGINEER - [employer] ATTENDANT Work Phone: Start: 05-02-2025 Ecg routine ecg w/le ast 12 lds trcg only w/o i&r Carlos Boudreauxvale EHS ENGINEER - [employer] ATTENDANT Work Phone: Start: 05-02-2025 Basic metabolic pane l calcium total Jacek Alvaraod EHS ENGINEER - [employer] ATTENDANT Work Phone: Start: 05-02-2025 Radiologic exam ches t single view Jacek Alvarado EHS ENGINEER - [employer] ATTENDANT Work Phone: Start: 05-01-2025 Radiologic exam ches t single view Jacek Alvarado EHS ENGINEER - [employer] ATTENDANT Work Phone: Start: 05-01-2025 Basic metabolic pane l calcium total Jacek Alvarado EHS ENGINEER - [employer] ATTENDANT Work Phone: Start: 04-30-2025 Ecg routine ecg w/le ast 12 lds trcg only w/o i&r Jacek Alvarado APRN - [employer] ATTENDANT Work Phone: Start: 04-30-2025 Radiologic exam ches t single view Jacek Alvarado APRN - [employer] ATTENDANT Work Phone: Start: 04-30-2025 Basic metabolic pane l calcium total Jacek Alvarado EHS ENGINEER - [employer] ATTENDANT Work Phone: Start: 04-29-2025 Glucose quantitative blood xcpt reagent strip Patricia Ulloa DO Work Phone: Start: 04-29-2025 End: 04-29-2025 Glucose quantitative blood xcpt reagent strip Patricia Ulloa DO Work Phone: Start: 04-29-2025 End: 04-29-2025 Glucose quantitative blood xcpt reagent strip Patricia Ulloa DO Work Phone: Start: 04-29-2025 Glucose quantitative blood xcpt reagent strip Patricia Ulloa DO Work Phone: Start: 04-29-2025 Glucose quantitative blood xcpt reagent strip Patricia Ulloa DO Work Phone: Start: 04-29-2025 Radiologic exam ches t single view Jacek Alvarado APRN - [employer] ATTENDANT Work Phone: Start: 04-29-2025 Ecg routine ecg w/le ast 12 lds trcg only w/o i&r Jacek Alvarado APRN - [employer] ATTENDANT Work Phone: Start: 04-29-2025 Glucose quantitative blood xcpt reagent strip Patricia Ulloa DO Work Phone: Start: 04-29-2025 End: 04-29-2025 Basic metabolic panel calcium total Jacek Alvarado APRN - [employer] ATTENDANT Work Phone: Start: 04-29-2025 Glucose quantitative blood xcpt reagent strip Patricia Ulloa DO Work Phone: Start: 04-28-2025 End: 04-29-2025 Glucose quantitative blood xcpt reagent strip Patricia Ulloa DO Work Phone: Start: 04-28-2025 End: 04-28-2025 Glucose quantitative blood xcpt reagent strip Patricia Ulloa DO Work Phone: Start: 04-28-2025 Glucose quantitative blood xcpt reagent strip Patricia Ulloa DO Work Phone: Start: 04-28-2025 End: 04-28-2025 Glucose quantitative blood xcpt reagent strip Patricia Ulloa DO Work Phone: Start: 04-28-2025 End: 04-28-2025 Glucose quantitative blood xcpt reagent strip Patricia Ulloa DO Work Phone: Start: 04-28-2025 EXTUBATION Jadiel Wellington DO Work Phone: Start: 04-28-2025 End: 04-28-2025 Calcium ionized Jacek Alvarado APRN - [employer] ATTENDANT Work Phone: Start: 04-28-2025 Radiologic exam ches t single view Jacek Alvarado APRN Ranjeet ALVARADO Work Phone: Start: 04-28-2025 End: 04-28-2025 Comprehensive metabolic panel Jacek Alvarado KISHA Ranjeet ALVARADO Work Phone: Start: 04-28-2025 End: 04-28-2025 Blood gases any combination ph pco2 po2 co2 hco3 Jacek Alvarado EHS ENGINEER - [employer] ATTENDANT Work Phone: Start: 04-28-2025 Ecg routine ecg w/le ast 12 lds trcg only w/o i&r Jacek Alvarado EHS ENGINEER - [employer] ATTENDANT Work Phone: Start: 04-28-2025 End: 04-28-2025 Echo transesophag r-t 2d w/prb img acquisj i&r Patricia Ulloa DO Work Phone: Start: 04-28-2025 End: 04-28-2025 Rplcmt prost aortic valve open xcp homogrf/stent Patricia Ulloa DO Work Phone: Start: 04-21-2025 Antibody screen JADIEL GARCIA Comment on above: Performed By: #### L [id number] ####Groover Operator: STEFANIE WARD ([phone])[facility] BLOOD [facility] ([address] Start: 04-06-2025 Cardiac catheterizat ion study Shilpa Jackson MD Work Phone: Start: 03-30-2025 Ecg routine ecg w/le ast 12 lds trcg only w/o i&r Shilpa Jackson MD Work Phone: Start: 03-06-2025 Assay of troponin quantitative Chad Ortiz MD Work Phone: Start: 03-06-2025 Basic metabolic pane l calcium total Chad Ortiz MD Work Phone: Start: 03-05-2025 Echo tthrc r-t 2d w/wom-mode compl spec&colr d Anna Baird EHS ENGINEER - [employer] ATTENDANT Work Phone: Start: 03-05-2025 Mri brain brain stem w/o contrast material Anna Baird EHS ENGINEER - [employer] ATTENDANT Work Phone: Start: 03-05-2025 Assay of troponin quantitative Anna Baird EHS ENGINEER - [employer] ATTENDANT Work Phone: Start: 03-05-2025 Lipid 1996 panel - S mita or Plasma Chad Holcomb MD Work Phone: Start: 03-04-2025 End: 03-05-2025 Basic metabolic panel calcium total Chad Ortiz MD Work Phone: Start: 03-04-2025 End: 03-05-2025 Lipid panel Chad Ortiz MD Work Phone: Start: 03-04-2025 Assay of troponin quantitative Jadiel Soni Amish DO Work Phone: Start: 03-04-2025 Culture bacterial quanttative colony count urine Chad Ortiz MD Work Phone: Start: 03-04-2025 Urinalysis complete panel - Urine Chad Ortiz MD Work Phone: Start: 03-04-2025 Assay of troponin quantitative Jadiel Zachariah Wellington DO Work Phone: Start: 03-04-2025 Ecg routine ecg w/le ast 12 lds trcg only w/o i&r Chad Ortiz MD Work Phone: Start: 03-04-2025 Antibody screen JADIEL GARCIA Comment on above: Performed By: #### L [id number] ####Groover Operator: STEFANIE WARD ([phone])[facility] BLOOD BANK ([address] Start: 03-04-2025 ABO and Rh group [Ty pe] in Blood by Confirmatory method Chad Ortiz MD Work Phone: Start: 09-30-2020 End: 09-30-2020 Flu immunize order/admin Kanu Rowan Work Phone: Start: 06-29-2019 End: 07-14-2019 TTE w or wo fol wcon,Doppler Kanu Haley MD Work Phone: Start: 06-29-2019 End: 06-29-2019 Ecg routine ecg w/least 12 lds i&r only Kanu Haley MD Work Phone: Comment on above: Normal. Start: 09-28-2013 End: 10-06-2013 Xtrnl ecg & 48 hr record scan stor w/r&i Kanu Haley MD Work Phone: Start: 09-18-2013 End: 09-24-2013 Ecg routine ecg w/least 12 lds i&r only Kanu Haley MD Work Phone: Start: 08-02-2011 End: 08-02-2011 Wrist Surgery Mihaela Jacintolyndsey SHAFFER Comment on above: Left. Plan of Treatment Date Care Activity Detail Author Start: 2043 RSV Immunization for Adults (1 - 1-dose 75+ series) RSV Immunization for Adults (1 - 1-dose 75+ series) [facility] Start: 03-05-2030 Lipid panel Lipid Panel [facility] Start: 03-05-2028 Diabetes mellitus screening Diabetes Screening [facility] Start: 05-03-2026 Creatinine measurement Creatinine Level [facility] Start: 05-03-2026 Potassium measurement Potassium Level [facility] Start: 04-28-2026 Echocardiography Echocardiogram [facility] Start: 04-21-2026 Diabetes mellitus screening Diabetes Screening [facility] Start: 03-06-2026 Creatinine measurement Creatinine Level [facility] Start: 03-06-2026 Potassium measurement Potassium Level [facility] Start: 03-05-2026 Diabetes mellitus screening Diabetes Screening [facility] Start: 03-05-2026 Echocardiography Echocardiogram [facility] Start: 08-04-2025 Nursing evaluation of patient and report Medical; Nurse visit - [facility] Start: 04-Aug-2025 16:30-04:00 [email or web address] Start: 08-02-2025 Influenza vaccination [facility] Start: 07-28-2025 Nursing evaluation of patient and report Medical; [email or web address] Start: 28-Jul-2025 15:40-04:00 [email or web address] Start: 07-27-2025 Nursing evaluation of patient and report Medical; [email or web address] Start: 27-Jul-2025 16:30-04:00 [facility] Request [facility]. Start: 07-27-2025 Evaluation of diagnostic study results [facility] Start: 07-20-2025 Nursing evaluation of patient and report Medical; Nurse visit - INR --[facility] Start: 20-Jul-2025 16:30-04:00 NURSE, FLOAT Appointment Request [facility] Start: 07-02-2025 End: 07-02-2025 Anticoagulant drug monitoring 07/02/2025 11:00 AM EDT Anticoagulation - Warfarin Visit [facility] [address] [facility] [address] [place] [phone] [facility] Start: 06-18-2025 End: 06-18-2025 Patient encounter procedure 06/18/2025 11:15 AM EDT Office Visit [facility] - [place] [address] [place] [phone] Jayy Francis MD [address] [facility] [address] [place] [address] [facility] [place] Start: 06-18-2025 End: 06-18-2025 Anticoagulant drug monitoring 06/18/2025 10:15 AM EDT Anticoagulation - Warfarin Visit [facility] [address] [phone] [facility] Start: 06-08-2025 End: 06-08-2025 Anticoagulant drug monitoring 06/08/2025 11:00 AM EDT Anticoagulation - Warfarin Visit [facility] [address] [facility] [address] [phone] [facility] Start: 06-01-2025 End: 06-01-2025 Telemedicine consultation with patient 06/01/2025 1:00 PM EDT Telemedicine [facility] Cardiovascular Thoracic Surgery - [place] [address] [place] [phone] Jacek Alvarado, KISHA - PARKING LOT ATTENDANT [address] [place] [address] [address] [facility] Thoracic Surgery - [place] Start: 05-25-2025 End: 05-25-2025 Anticoagulant drug monitoring 05/25/2025 11:15 AM EDT Anticoagulation - Warfarin [facility] [address] [phone] [facility] Start: 05-18-2025 End: 05-18-2025 Anticoagulant drug monitoring 05/18/2025 11:30 AM EDT Anticoagulation - Warfarin [facility] [address] [phone] [facility] Start: 05-11-2025 End: 05-11-2025 Patient encounter procedure 05/11/2025 11:00 AM EDT Office Visit [facility] Cardiovascular Thoracic Surgery - [place] [address] [place] [phone] Jacek Alvarado, EHS ENGINEER - PARKING LOT ATTENDANT [address] [address] [facility] Thor[facility] [place] Start: 05-11-2025 End: 05-11-2025 Anticoagulant drug monitoring 05/11/2025 10:00 AM EDT Anticoagulation - Other Visit [facility] [address] [phone] [facility] Anticoagulation Management Service Start: 05-05-2025 End: 08-03-2025 Prothrombin time (PT) in Blood by Coagulation assay Protime-INR Lab Routine Severe aortic stenosis Expected: 05/05/2025 (Approximate), Expires: 08/03/2025 [facility] Work Phone: Comment on above: Expected: 05/05/2025 (Approximate), Expi res: 08/03/2025 Start: 05-05-2025 End: 05-05-2025 Anticoagulant drug monitoring 05/05/2025 12:15 AM EDT Anticoagulation - Warfarin [facility] [address] [phone] [facility] Start: 04-28-2025 End: 04-28-2025 Admission to same day surgery center 04/28/2025 7:00 AM EDT - 04/28/2025 12:00 PM EDT Surgery [facility] MAIN OR [address] [place] [phone] Patricia Ulloa DO [address] [place] [address] MECHANICAL AORTIC VALVE REPLACEMENT [21402 (CPT )] [facility] MAIN OR Comment on above: MECHANICAL AORTIC VALVE REPLACEMENT [334 05 (CPT )] Start: 04-28-2025 End: 04-28-2025 Echo transesophag r-t 2d w/prb img acquisj i&r ECHOCARDIOGRAM, TRANSESOPHAGEAL Nonrheumatic aortic (valve) stenosis 04/28/2025 7:00 AM EDT [facility] Operating Room Start: 04-28-2025 End: 04-28-2025 Rplcmt prost aortic valve open xcp homogrf/stent REPLACEMENT, AORTIC VALVE, OPEN Nonrheumatic aortic (valve) stenosis 04/28/2025 7:00 AM EDT [facility] Operating Room Start: 04-28-2025 Subsequent hospital visit by physician [facility] MAIN OR Start: 04-21-2025 End: 04-21-2025 Admission to establishment [facility] Pre-Admit Testing Start: 04-20-2025 End: 04-20-2025 Anticoagulant drug monitoring 04/20/2025 1:00 AM EDT Anticoagulation - Warfarin Visit [facility] Anticoagulation Management Service [address] [place] [phone] [facility] Anticoagulation Management Service Start: 04-15-2025 End: 04-15-2025 Patient encounter procedure 04/15/2025 9:45 AM EDT Office Visit [facility] Cardiovascular Thoracic Surgery [facility] [place] [address] [place] [phone] Patricia Ulloa DO [address] [place] [address] [facility] Cardiovascular Thoracic Surgery - [place] Start: 04-14-2025 End: 03-30-2026 CBC W Auto Differential panel - Blood CBC auto differential Lab Routine Nonrheumatic aortic valve stenosis Expected: 04/14/2025 (Approximate), Expires: 03/30/2026 [facility] Work Phone: Comment on above: Expected: 04/14/2025 (Approximate), Expi res: 03/30/2026 Start: 04-06-2025 End: 03-30-2026 Basic metabolic 1998 panel - Serum or Plasma Basic metabolic panel Lab Routine Nonrheumatic aortic valve stenosis Expected: 04/06/2025 (Approximate), Expires: 03/30/2026 [facility] Comment on above: Expected: 04/06/2025 (Approximate), Expi res: 03/30/2026 Start: 04-06-2025 End: 04-06-2025 Admission to same day surgery center 04/06/2025 10:00 AM EDT - 04/06/2025 11:00 AM EDT Surgery [facility] [address] [place] [address] Shilpa Jackson MD [address] [phone] Left and right heart cath / coronary angiography [facility] Comment on above: Left and right heart cath / coronary ang iography Start: 04-06-2025 Subsequent hospital visit by physician 04/06/2025 10:00 AM EDT Hospital Encounter [facility] [address] [place] [address] Shilpa Jackson MD [address] [phone] Nonrheumatic aortic valve stenosis [facility] Comment on above: Nonrheumatic aortic valve stenosis Start: 03-30-2025 End: 03-30-2025 Patient encounter procedure [facility] [place] Start: 03-25-2025 End: 03-25-2025 Patient encounter procedure 03/25/2025 10:30 AM EDT Appointment [facility] [address] [facility] [address] [place] [address] [facility] [address] [facility] Start: 03-11-2025 Patient encounter procedure Medical; Hospital F/U - hosp F/u [facility] Start: 11-Mar-2025 08:30-04:00 BECKA Jesus Appointment Request [facility] Start: 03-10-2025 End: 03-10-2027 Cardiac event monitor (30 days) Cardiac event monitor (30 days) [facility] Routine Transient cerebral ischemia, unspecified type Expected: 03/10/2025 (Approximate), Expires: 03/10/2027 [facility] Work Phone: Comment on above: Expected: 03/10/2025 (Approximate), Expi res: 03/10/2027 Start: 08-02-2024 COVID-19 Vaccine ( season) COVID-19 Vaccine () [facility] Start: 12-14-2019 Provider Instructions for Treatment Saline gargles Indication: PHARYNGITIS, ACUTE (462.) (Renamed from Acute pharyngitis) Start: 14-Dec-2019 Instruction Type: Provider Instructions for Treatment [facility], [facility] Start: 2018 Zoster Vaccines (1 of 2) Zoster Vaccines (1 of 2) [facility] Start: 1987 DTaP/Tdap/Td Vaccines (1 - Tdap) DTaP/Tdap/Td Vaccines (1 - Tdap) [facility] Start: 1987 Hepatitis B Vaccines (1 of 3 - 19+ 3-dose series) Hepatitis B Vaccines (1 of 3 - 19+ 3-dose series) [facility] Start: 1987 Pneumococcal Vaccine: 50+ Years (1 of 2 - PCV) Pneumococcal Vaccine: 50+ Years (1 of 2 - PCV) [facility] Start: 1986 Hepatitis C screening Hepatitis C Screening [facility] Start: 1980 Depression Screening Depression Screening [facility] Start: 1969 MMR Vaccines (1 of 1 - Standard series) MMR Vaccines (1 of 1 - Standard series) [facility] Start: 1968 HIV screening HIV Screening [facility] Start: 1968 Screening for malignant neoplasm of colon [facility] Start: 1968 Thyroid stimulating hormone measurement TSH Level [facility] End: 03-04-2025 Bacteria identified in Urine by Culture [facility] Comment on above: Once (Lab) for 1 Occurrences starting until 03/04/2025 End: 03-30-2025 Cardiac event monitor (30 days) [employer] Work Phone: Comment on above: Once for 1 Occurrences starting 03/30/20 until 03/30/2025 CBC W Auto Different ial panel - Blood [facility] Comprehensive metabo lic 2000 panel - Serum or Plasma [facility] End: 03-04-2025 ECG 12 lead ECG 12 lead CV ECG STAT Once for 1 Occurrences starting 03/04/2025 until 03/04/2025 [employer] Work Phone: Comment on above: Once for 1 Occurrences starting 03/04/20 until 03/04/2025 ECG 12 lead ECG 12 lead CV E CG Routine 05/02/2025 6:58 AM EDT [employer] Work Phone: ECG 12 lead ECG 12 lead CV E CG Routine 05/03/2025 5:44 AM EDT [facility] ECG 12 lead - CLINIC PERFORMED ECG 12 lead - CLINIC PERFORMED CV ECG Routine Nonrheumatic aortic valve stenosis 03/30/2025 2:18 PM EDT [facility] Echo transesophag r- t 2d w/prb img acquisj i&r ECHOCARDIOGRAM, TRANSESOPHAGEAL Nonrheumatic aortic (valve) stenosis [facility] Operating Room Evaluation of diagno stic study results [facility] LEFT AND RIGHT HEART CATH / CORONARY ANGIOGRAPHY LEFT AND RIGHT HEART CATH / CORONARY ANGIOGRAPHY Nonrheumatic aortic valve stenosis [facility] Lipid 1996 panel - S mita or Plasma [facility] Rplcmt prost aortic valve open xcp homogrf/stent REPLACEMENT, AORTIC VALVE, OPEN Nonrheumatic aortic (valve) stenosis [facility] Operating Room Tissue exam [employer] Work Phone: Comment on above: Release Upon Ordering for 1 Occurrences starting 04/28/2025, 1 completed End: 03-04-2025 Urine Hold Cup Urine Hold Cup Lab Timed Once for 1 Occurrences starting 03/04/2025 until 03/04/2025 [facility] Comment on above: Once for 1 Occurrences starting 03/04/20 until 03/04/2025 Heart [facility] End: 04-28-2025 US Heart Transesophageal [employer] Work Phone: Comment on above: Once for 1 Occurrences starting 04/28/20 until 04/28/2025 Immunizations Immunization Date Immunization Notes Care Provider Mariposa hartman 09-30-2020 influenza, injectabl e, quadrivalent, contains preservative Asher Jesus PA-C [facility] Comment on above: Site: Right Warren Ramos iven: * Influenza - Inactivated (07/08/15) 09-30-2020 influenza virus vaccine, unspecified formulation Cullen Lawrence RN [facility] [employer] Payers Date Payer Category Payer Unknown 2025 Self-pay 2025 Unknown 31 2025 Commercial Managed C are - HMO [facility] [id number] 2025 Commercial Managed C are - HMO [id number] 2025 Unknown [id number] 1968 Unknown [id number] 1968 Unknown [id number] 1968 Unknown [id number] 1968 Unknown [id number] Unknown [id number] Unknown [id number] Unknown [id number] Unknown [id number] Unknown [id number] Social History Date Type Detail Facility Tobacco Use: Tobacco Use: ; N ever smoker. [facility]. Start: 1970 Male [facility] Start: 04-15-2025 End: 07-27-2025 Never smoked tobacco [facility] Tobacco smoking stat [facility] Tobacco smoking consumption unknown [facility] Start: 03-04-2025 End: 06-18-2025 History of Social function [facility] Start: 03-04-2025 End: 06-18-2025 Alcohol Use Disorder Identification Test - Consumption [AUDIT-C] [facility] How often to you hav e a drink containing alcohol? Never [facility] How many standard dr inks containing alcohol do you have on a typical day? Patient does not drink [facility] Start: 1970 Sex assigned at Not on file [facility] Start: 03-04-2025 Sex Male (finding) [facility] Within the last year , have you been afraid of your partner or ex-partner? No [facility] Start: 04-15-2025 Tobacco use and exposure Smokeless tobacco non-user [facility] Start: 04-15-2025 End: 06-18-2025 Alcoholic beverage intake Ex-drinker (finding) [facility] Medical Equipment Procedure Code Equipment Code Equipment Origin al Text Equipment Identifier Dates Valve Aortic Fle x [place] 25 - [id number] - [id number] Start: 04-28-2025 0.01-0.2 mcg/kg/ min 118 kg (1.1063-22.125 mL/hr, rounded to 1.11-22.13 mL/hr), IntraVENous, Continuous PRN, Initiate if Cardiac Index above 2.0; SBP less than 90 mmHg or MAP less than 65 mmHg; and PAD above 18, Starting on Sat04/28/25 at 1312, Recovery & On Unit, Infuse via central line. If Titrate Infusion? is No: Disregard instructions below. If Titrate infusion? is Yes: Titrate in increments of 0.02 mcg/kg/min no faster than every 5 minutes to goal. When approaching therapeutic goal or weaning off, smaller titration increments of 0.01 mcg/kg/min no faster than every 5 minutes may be used to maintain goal. , Goal Maintain SBP greater than 90 and less than 130 Goal Maintain MAP greater than 65 and less than 80, Titrate Infusion: Yes, Infusion Dose: Other, Infusion Dose: 0.01 mcg/kg/min, Goal of Therapy is: MAP great than 65 mmHg, SBP greater than 90 mmHg, Contact Provider if: Patient is receiving the maximum dose and is not achieving the goal of therapy Start: 04-28-2025 End: 05-01-2025 Clinical Notes 03-04-2025 to 07-02-2025 Rama Rodriguez RN - 07/02/2025 11:00 AM Myron Francis MD - 06/18/2025 11:15 AM Federica Rodriguez RN - 06/18/2025 10:15 AM Federica Rodriguez RN - 06/08/2025 11:00 AM EDT Note Date & Type Note Facility 07-02-2025 History of Presen t illness Narrative Images from the original note were not included. [facility] ([facility]) Anticoagulation Clinic [address] [place] [address], [address], [place] [address] Jose Paniagua (1970) presents to the [facility] clinic today for follow-up warfarin visit. The primary encounter diagnosis was Severe aortic stenosis. A diagnosis of S/P AVR (aortic valve replacement) was also pertinent to this visit. and has a goal INR 2.0-3.0. Pt has Coumadin 3mg tablets and at last visit was instructed to take 4. 5 mg MWF 3 mg all other days. Pt confirms taking this dose and adherence to current regimen: yes Any changes in prescriptions, OTC, and/or herbal medications: yes . Amiodarone dcd 06/[address] Wolf[address] He is referring him to [facility], Dr Soto as that is closer for him Changes in alcohol, tobacco, or marijuana use: no Any recent hospitalizations or ED visits: no Any recent falls or head trauma: no Any changes in diet (vit K): no Upcoming surgeries or procedure: no Does pt need refills on warfarin prescription: no Review of Systems Constitutional: Negative for activity change, appetite change and fatigue. HENT: Negative for nosebleeds. Respiratory: Negative for shortness of breath. Cardiovascular: Positive for chest pain (some post op pain from heart sx). Negative for leg swelling. Gastrointestinal: Negative for blood in stool, diarrhea, nausea and vomiting. Genitourinary: Negative for hematuria. Neurological: Negative for weakness, light-headedness and headaches. Hematological: Does not bruise/bleed easily. Objective Vitals: 07/02/25 1131 07/02/25 1132 07/02/25 1147 BP: (!) 158/96 (!) 150/94 139/83 Pulse: 76 76 Weight: 258 lb (117 kg) Assessment Lab Results Component Value Date INR 2.3 (H) 07/02/2025 INR 2.0 (H) 06/18/2025 INR 2.9 (H) 06/08/2025 INR 3.0 (H) 05/25/2025 INR 2.7 (H) 05/18/2025 Plan INR is therapeutic. Since amiodarone dcd recently will need to monitor for INR decrease Dosin.5 mg MWF 3 mg all other days Next INR Check: 07/09. Pt states pcp, Dr Solorzano in [place] will manage warfarin. Advised I would call the office to verify and fax summary Patient educated on the following: medication adherence and Vitamin K content and consistency Patient care coordination completed: Called another office to verify information. Spoke with Dr. Solorzano's staff who states will manage. Suggested next INR in 7 -10 days. Called pt to have him make appt with pcp for INR check. Faxed summary to [phone] Positive ROS findings are: chronic, pt instructed to follow-up with provider Bright was instructed to notify [facility] of any unusual bruising or active/uncontrollable bleeding, medication changes within 24 hours, missed doses, dietary changes, illnesses or hospitalizations, and upcoming surgeries. Patient given written instructions. Patient expressed understanding utilizing the teach back method. Discharged ambulatory in no apparent distress. Time spent 15 Minutes Rmaa Rodriguez RN documented in this encounter [facility] 06-18-2025 History of Presen t illness Narrative [facility] Cardiology/Electrophysiology NewPatient Note Chief Complaint: Chief Complaint Patient presents with Atrial Fibrillation PAF Cardiac Valve Problem Mechanical AVR 04-28-25 Bicuspid Other PFO repair 04-28-25 Cryptogenic CVA Coronary Artery Disease Hyperlipidemia Hypertension History of Present Illness: Bright Keen is a 55 y.o. male who I meet today for the first time. He presented to [facility] in [place] with left-sided weakness in March 2025. He was given TNK and transferred to [facility]. A brain MRI showed 4 small embolic infarcts in the right frontal, occipital, and left parietal lobe. An echo showed a moderately dilated LA and RA with a bicuspid aortic valve and severe aortic stenosis. He was given aspirin and statin. He was seen a month later in valve clinic. A cath showed mild to moderate CAD (50% mid LAD 30% D1). He underwent a mechanical aortic valve replacement and a PFO repair with Dr. Ulloa on April 28, 2025. He had some postop atrial fibrillation and in addition to the Coumadin for the valve he was put on amiodarone. He presents today feeling well. In retrospect, he had been getting short of breath/dyspneic with exertion for many years, but ignored it. He also reported occasional palpitation which were rare and not very prolonged. Since discharge, he denies chest pain, SOB/PADRON, palpitation, dizziness, or syncope. In general he feels much better. Today, we spoke about following up closer to [place]. An EKG today shows normal sinus rhythm with a borderline first-degree AV block and a narrow QRS. An intraoperative KATY showed a well-seated mechanical valve with no perivalvular leak. Assessment and Plan: 1. Postop atrial fibrillation: Obviously not uncommon in the setting aortic valve surgery. Hard to know if he had atrial fibrillation preoperatively over the last several years, though certainly that is a concern given his presentation with a CVA (see below). As it is, he is protected from a thromboembolic event by the Coumadin which she is taking for his mechanical AVR. Today I will stop the amiodarone given his young age. We spoke about monitoring his heart rate at home which he does routinely. I will refer him to the [facility] (Dr. Soto) as this is much more convenient for him. 2. Mechanical aortic valve replacement: He had a mechanical valve implanted on April 28, 2025 (25 mm [place] serial #[id number]). He has been recovering well and is due to start cardiac rehab in [place] next week. He also had a PFO closure at that time. He did not have a left atrial appendage closure. 3. Thromboembolic CVA: The etiology of this is probably his severe aortic stenosis. However, he could have had some preoperative atrial fibrillation as well. At this point, he will need Coumadin indefinitely. I told him he is protected from the risk of thromboembolic recurrence. We went over the pathophysiology of a thromboembolic stroke and explained to him that it could have been from the valve or from periods of atrial fibrillation prior to his surgery. 4. Follow-up: Understandably, he would like to follow closer to home. I have given him the name of Dr. Yony Soto At the [facility]. I will send him my note and call him. Past Medical History: Medical History[1] Past Surgical History Surgical History[2] Family History Family History[3] Social History Social History[4] Medications: Reviewed Allergies: Reviewed Review of Systems: All other systems were reviewed and are negative other than as noted in the HPI. Physical Examination: Vitals: Blood pressure (S) (!) 146/76, pulse 73, height 5' 10 (1.778 m), weight 262 lb 3.2 oz (119 kg), SpO2 98%. Constitutional: Appears well kept and looks stated age; in NAD Psychiatric: A &O x3 Mood is pleasant; Affect is appropriate Musculoskeletal: Normocephalic; no joint swelling; gait steady; 5/5 muscle strength bilaterally in upper and lower extremities; no clubbing or cyanosis HEENT: Pupils are equal and round; Conjunctiva are not injected; Sclera are non-icteric; Airway and Nares are patent; Ears without external abnormalities. Mucosa is pink; Dentition is normal Neck: Supple; No JVD or Bruits; No thyromegaly; No lymphadenopathy Respiratory: Lungs are clear with no rales or wheezes. Respiratory effort is normal and symmetrical bilaterally; Good air movement bilaterally Heart: RRR without ectopy; Nl S1 and S2 2/6 aortic flow murmur. No crg Abdomen: NABS soft, non-tender, non-distended; no organomegaly; no obvious masses Extremities/Skin: No LE edema; Skin warm to touch and well perfused; skin discoloration is absent; Peripheral Pulses intact Neuro: sensation and motor function are grossly normal. Cranial Nerves are grossly intact Laboratory Tests: Lab Results Component Value Date WBC 7.2 05/03/2025 WBC 8.1 05/02/2025 WBC 10.3 05/01/2025 HGB 11.6 (L) 05/03/2025 HGB 11.2 (L) 05/02/2025 HGB 11.3 (L) 05/01/2025 HCT 34.2 (L) 05/03/2025 HCT 33.2 (L) 05/02/2025 HCT 34.7 (L) 05/01/2025 MCV 83.2 05/03/2025 MCV 82.4 05/02/2025 MCV 83.8 05/01/2025 PLT 240 05/03/2025 PLT 181 05/02/2025 PLT 122 (L) 05/01/2025 Lab Results Component Value Date NA 138 05/03/2025 NA 135 (L) 05/02/2025 NA 133 (L) 05/01/2025 K 3.6 05/03/2025 K 3.7 05/02/2025 K 4.4 05/01/2025 CL 103 05/03/2025 CL 102 05/02/2025 CL 101 05/01/2025 CO2 28 05/03/2025 CO2 23 05/02/2025 CO2 21 (L) 05/01/2025 BUN 17 05/03/2025 BUN 14 05/02/2025 BUN 17 05/01/2025 CREATININE 0.82 05/03/2025 CREATININE 0.72 05/02/2025 CREATININE 0.73 05/01/2025 Lab Results Component Value Date HGBA1C 5.4 04/21/2025 Lab Results Component Value Date CHOL 177 03/05/2025 Lab Results Component Value Date HDL 35 (L) 03/05/2025 Lab Results Component Value Date LDLCALC 133 (H) 03/05/2025 Lab Results Component Value Date TRIG 44 03/05/2025 Jayy Francis MD DATE of SERVICE: 06/18/2025 [1] Past Medical History: Diagnosis Date Heart valve disorder Hyperlipidemia Hypertension Stroke (HCC) no residual [2] Past Surgical History: Procedure Laterality Date AORTIC VALVE REPLACEMENT 04/28/2025 s/p AVR (#25 [facility]) PFO repair and KATY with Dr. Ulloa on 04/28/25 ARM FRACTURE SURGERY (HISTORICAL) Bilateral plates inserted both arms CARDIAC CATHETERIZATION N/A 04/06/2025 Performed by Shilpa Jackson MD at [facility] Cardiac Cath/EP Lab [3] No family history on file. [4] Social History Tobacco Use Smoking status: Never Smokeless tobacco: Never Vaping Use Vaping status: Never Used Substance Use Topics Alcohol use: Not Currently Drug use: Not Currently documented in this encounter [facility] 06-18-2025 History of Presen t illness Narrative Images from the original note were not included. [facility] Anticoagulation Management Service ([facility]) Anticoagulation Clinic [address] [place] [address], [place] [address] Jose Paniagua (1970) presents to the [facility] clinic today for follow-up warfarin visit. The primary encounter diagnosis was Severe aortic stenosis. A diagnosis of S/P AVR (aortic valve replacement) was also pertinent to this visit. and has a goal INR 2.0-3.0. Pt has Coumadin 3mg tablets and at last visit was instructed to take 4.5 mg Tues,Sat 3 mg all other days. Has an appt today with cardiology, Dr Francis. Pt confirms taking this dose and adherence to current regimen: yes Any changes in prescriptions, OTC, and/or herbal medications: yes . Last month amiodarone decreased Changes in alcohol, tobacco, or marijuana use: N/A Any recent hospitalizations or ED visits: no Any recent falls or head trauma: no Any changes in diet (vit K): no Upcoming surgeries or procedure: no Does pt need refills on warfarin prescription: no Review of Systems Constitutional: Positive for activity change (will be starting cardiac rehab at [facility]). Negative for appetite change and fatigue. HENT: Negative for nosebleeds. Respiratory: Negative for shortness of breath. Cardiovascular: Negative for chest pain and leg swelling. Gastrointestinal: Negative for blood in stool, diarrhea, nausea and vomiting. Genitourinary: Negative for hematuria. Neurological: Negative for weakness, light-headedness and headaches. Hematological: Does not bruise/bleed easily. Objective Vitals: 06/18/25 1004 06/18/25 1006 06/18/25 1015 BP: (!) 150/88 (!) 144/84 128/73 Pulse: 76 74 Assessment Lab Results Component Value Date INR 2.0 (H) 06/18/2025 INR 2.9 (H) 06/08/2025 INR 3.0 (H) 05/25/2025 INR 2.7 (H) 05/18/2025 INR 1.9 (H) 05/11/2025 Plan INR is therapeutic on low end likely due to amiodarone decrease. Rechecked BP after 5 minutes with improvement. Dosing: increase to 4.5 mg MWF 3 mg all other days Next INR Check: 07/02 Patient educated on the following: medication adherence, Vitamin K content and consistency, and rationale for dose change Patient care coordination completed: N/A Positive ROS findings are: n/a - no positive findings Bright was instructed to notify [facility] of any unusual bruising or active/uncontrollable bleeding, medication changes within 24 hours, missed doses, dietary changes, illnesses or hospitalizations, and upcoming surgeries. Patient given written instructions. Patient expressed understanding utilizing the teach back method. Discharged ambulatory in no apparent distress. Time spent 12 Minutes Rama Rodriguez RN staffed with William Delcid RPh documented in this encounter [facility] 06-08-2025 History of Presen t illness Narrative [facility] Anticoagulation Management [facility] ([facility]) Anticoagulation Clinic [address], [place] [address] Jose Paniagua (1970) presents to the [facility] clinic today for follow-up warfarin visit. The primary encounter diagnosis was Severe aortic stenosis. A diagnosis of S/P AVR (aortic valve replacement) was also pertinent to this visit. and has a goal INR 2.0-3.0. Pt has Coumadin 3mg tablets and at last visit was instructed to take 4.5 mg Tues Sat 3 mg all other days. Has an appt next wek with cardiology. Pt lives in [place]. The drive here is over an hour. He would like to be able to find provider in [facility]. Discussed there is a Coumadin Clinic there but would need a referral from a Dr that follows with that hospital. States his pcp likely does. He is in [place]. Discussed a home meter after being on warfarin for 3 months also. Pt confirms taking this dose and adherence to current regimen: yes Any changes in prescriptions, OTC, and/or herbal medications: yes . Amiodarone dose decreased mid May Changes in alcohol, tobacco, or marijuana use: N/A Any recent hospitalizations or ED visits: no Any recent falls or head trauma: no Any changes in diet (vit K): no Upcoming surgeries or procedure: no Does pt need refills on warfarin prescription: no Review of Systems Objective Vitals: 06/08/25 1104 06/08/25 1149 BP: (!) 185/84 (!) 141/76 Pulse: 76 Weight: 255 lb 9.6 oz (116 kg) Assessment Lab Results Component Value Date INR 2.9 (H) 06/08/2025 INR 3.0 (H) 05/25/2025 INR 2.7 (H) 05/18/2025 INR 1.9 (H) 05/11/2025 INR 2.8 (A) 05/05/2025 Plan INR is therapeutic Dosin.5 mg Tues,Sat 3 mg all other days Next INR Check: 06/18 prior to cardiology appt Patient educated on the following: medication adherence and Vitamin K content and consistency Patient care coordination completed: N/A Positive ROS findings are: n/a - no positive findings Bright was instructed to notify [facility] of any unusual bruising or active/uncontrollable bleeding, medication changes within 24 hours, missed doses, dietary changes, illnesses or hospitalizations, and upcoming surgeries. Patient given written instructions. Patient expressed understanding utilizing the teach back method. Discharged ambulatory in no apparent distress. Time spent 12 Minutes Rama Rodriguez RN documented in this encounter [facility] 06-08-2025 Note Orders Placed This E ncounter Procedures [facility] Cardiac/Pulmonary Rehab Standing Status: Future Expected Date: 06/08/2025 Expiration Date: 12/09/2025 Referral Priority: Routine Referral Type: Consultation Referral Reason: Specialty Services Required Requested Specialty: Cardiac Rehabilitation Number of Visits Requested: 1 [facility] 06-01-2025 History of Presen t illness Narrative Images from the original note were not included. [facility] [facility] [address] [facility] [address] Dept: [phone] Dept Loc: [phone] Visit type: Established patient - Virtual Surgery/Procedure: s/p AVR (#25 [facility]) PFO repair and KATY with Dr. Ulloa on 04/28/25 Reason for Visit: follow up Assessment/Plan Diagnosis: Severe s/p AVR [facility] CHF POAF Plan: POD#34 Day from Discharge (05/03/25): #29 -Reviewed current meds: continue as ordered Continue ASA/statin - reviewed prior lipid panel with patient Amio - POAF - taper Coumadin per Nadir INR goal 2-3 lifelong therapy -Surgical Incisions: healing appropriately, well approximated, no s/s of infection Middle CT site - still not healed all the way; some minor drainage -- continue to monitor; soap and water/wound care -Physical therapy as outlined in discharge instructions: Ok to drive ok for cardiac rehab -Weight restriction measures 5-8 weeks from date of surgery- 20lbs weight restriction approximate end date: 06/23/25 -Follow up with PCP and Cards has follow up with Dr. Wolf scheduled -Plan follow up as needed. Patient to call with any questions or concerns. They verbalized understanding Patient was seen today via Telehealth by agreement and consent. I used the following Telehealth technology: Audio capability only. Total length of call 14 minutes. The patient was offered and advised video for a more comprehensive evaluation, but the patient declined or was unable to use video. Patient location: Patient Location: Home. This patient encounter is appropriate and reasonable under the circumstances: patient request . The patient has been advised of the potential risks and limitations of this mode of treatment (including but not limited to the absence of in-person examination) and has agreed to be treated in a remote fashion in spite of them. Any and all of the patient's/patient's family's questions on this issue have been answered and I have made no promises or guarantees to the patient. The patient has also been advised to contact this office for worsening conditions or problems, and seek emergency medical treatment and/or call 911 if the patient deems either necessary. The patient stated that they are currently [facility]. If the patient is a minor, permission has been obtained by the parent or guardian for the patient to receive medical care at this visit. Patient identification was verified at the start of the visit: yes Total time spent on this encounter: 20 Subjective HPI: 55 y.o. male w pmHx of severe , CHF, HTN and recent ischemic stroke was seen in OP valve clinic for surgical evaluation. Of note patient was admitted to [facility] on 03/04/25 for stroke like symptoms, with MRI revealing four tiny acute embolic infarcts in the right frontal and occipital lobes, and left parietal lobe. Pt was treated with TNK and had drastic improvement in symptoms. During further workup, a transthoracic echo was obtained, which demonstrated EF 55%, LA and RA moderately dilated, and severe aortic valve stenosis concerning for potential etiology of cryptogenic stroke, peak/mean gradients 84/53 mm Hg, LITO 1.0 cm^2. He consent and was taken to the operating room for AVR and PFO repair with Dr. Ulloa on 04/28/25. Postoperative course patient developed rate controlled afib - no prior history. He was loaded with amiodarone and due to [facility] valve d/c'ed on OAC. Once medically optimized and hemodynamically stable. He was discharged home. Patient was not able to receive home care. Coordinated INR draws with [facility]. Will need ECHO in 3 months to assess valve. He was discharged home on POD #5 on 05/03/25. Ok with Dr. Ulloa even though INR 1.9. 05/11/25: 55 y.o. male who presents today for post op follow up. -Medications reviewed: compliant; no additional lasix needed at this time. -Pain is controlled. Currently taking OTC if needed -Incisions healing appropriately with no signs of infection and well approximated. MSI tape removed from incision. -Weight restriction discussed, ROM exercises discussed.Not ready to drive not ready for cardiac rehab -Other complaints: Patient doing well postoperatively. He is getting around and walking every day. Does get a little short of breath with ambulating and going up steps but feels he is doing better with stairs then prior to surgery. Pain controlled. Only real issues that he has is he is having a hard time sleeping. Wants to give it more time. But may try melatonin. INR check today with [facility] INR 1.9 - dose adjusted. 06/01/25: 55 y.o. male who was called today for post op follow up. He is doing well overall. Not back to were he wants to be but did stated that he feels better than how he did before surgery. Does complain of some muscle skeletal pain on his upper back and shoulders. Also notices at times on the chest wall. States if feels like a nerve pain. Not constant but still happens. He is not taking anything for pain; encouraged OTC as needed. Will continue to monitor - he did state it seems to be getting better definitely not worse. Has follow up with Cards scheduled. Life long therapy with coumadin due to mech avr. No other needs at this time. Will plan follow up PRN unless needed earlier. Will touch base in two weeks via telephone to follow up on CT site. Objective Patient reported: none noted Wt Readings from Last 3 Encounters: 05/25/25 255 lb (116 kg) 05/18/25 254 lb 12.8 oz (116 kg) 05/11/25 254 lb (115 kg) Physical exam deferred due to virtual visit-with audio (telephone) capabilities only Labs/Imaging/Testing: reviewed EMR, see A&P for pertinent diagnostic results related to office visit Disclaimer INFORMED CONSENT:The nature and purpose of the proposed treatment or procedure have been discussed. The risks and benefits of the proposed treatment or procedures have been reviewed. Alternatives have been reviewed in addition to the risks and benefits of not receiving treatments or undergoing procedures. Pursuant to this discussion, the patient agrees to undergo the proposed treatment or procedure. Captured images seen in this note from are not a substitute for a comprehensive interpretation of the entire data set as reflected by the interpreting physician with regard to radiology, echocardiography, and other diagnostic images. This note may have been dictated using [employer] Practice Edition 2.6 and/or AFrame Digital Voice Recognition Feature. The document was proofread, however unrecognized voice recognition field service poultry technician errors may be present. documented in this encounter [facility] 05-25-2025 History of Presen t illness Narrative Images from the original note were not included. [facility] ([facility]) Anticoagulation Clinic [address] [place] [address], [address], [place] [id number] Jose Paniagua (1970) presents to the [facility] clinic today for follow-up warfarin visit. The primary encounter diagnosis was Severe aortic stenosis. A diagnosis of Status post mechanical aortic valve replacement was also pertinent to this visit. and has a goal INR 2.0-3.0. Pt has Coumadin 3mg tablets and at last visit was instructed to take 4.5mg on Tu & Sat and 3mg on all other days . Pt confirms taking this dose and adherence to current regimen: yes Any changes in prescriptions, OTC, and/or herbal medications: yes, amiodarone dose was reduced to 200 mg daily last week. Changes in alcohol, tobacco, or marijuana use: yes Any recent hospitalizations or ED visits: no Any recent falls or head trauma: no Any changes in diet (vit K): yes, have been out of town so not as many salads as he normally eats. Upcoming surgeries or procedure: no Does pt need refills on warfarin prescription: no Review of Systems Constitutional: Negative for activity change, appetite change and fatigue. HENT: Negative for nosebleeds. Respiratory: Negative for shortness of breath. Cardiovascular: Positive for leg swelling (chronic unchanged. resolves with elevation). Negative for chest pain. Gastrointestinal: Negative for blood in stool, diarrhea, nausea and vomiting. Genitourinary: Negative for hematuria. Neurological: Negative for weakness, light-headedness and headaches. Hematological: Does not bruise/bleed easily. Objective Vitals: 05/25/25 1115 BP: (!) 142/84 Pulse: 70 Weight: 255 lb (116 kg) Assessment Lab Results Component Value Date INR 3.0 (H) 05/25/2025 INR 2.7 (H) 05/18/2025 INR 1.9 (H) 05/11/2025 INR 2.8 (A) 05/05/2025 INR 1.9 (H) 05/03/2025 Plan INR is therapeutic Dosin.5 mg every Tue, Sat; 3 mg all other days Next INR Check: 06/08/2025 Patient educated on the following: dietary/lifestyle considerations and Vitamin K content and consistency Patient care coordination completed: N/A Positive ROS findings are: chronic, no follow-up necessary Bright was instructed to notify [facility] of any unusual bruising or active/uncontrollable bleeding, medication changes within 24 hours, missed doses, dietary changes, illnesses or hospitalizations, and upcoming surgeries. Patient given written instructions. Patient expressed understanding utilizing the teach back method. Discharged ambulatory in no apparent distress. Time spent 12 Minutes Cullen Lawrence RN documented in this encounter [facility] 05-18-2025 History of Presen t illness Narrative Images from the original note were not included. [facility] ([facility]) Anticoagulation Clinic [address] [place] [address], [address] [place] [address] Subjective HPI Bright (1970) presents to the [facility] clinic today for follow-up warfarin visit. The primary encounter diagnosis was Severe aortic stenosis. A diagnosis of Status post mechanical aortic valve replacement was also pertinent to this visit. and has a goal INR 2.0-3.0. Pt has Coumadin 3mg tablets and at last visit was instructed to take 4.5mg on Tues & Sat and 3mg on all other days. Pt confirms taking this dose and adherence to current regimen: yes Any changes in prescriptions, OTC, and/or herbal medications: yes, Decreased Amiodarone daily dose from 800mg to 200mg yesterday (05/17), will continue 200mg for the next 60 days Changes in alcohol, tobacco, or marijuana use: no Any recent hospitalizations or ED visits: no Any recent falls or head trauma: no Any changes in diet (vit K): no Upcoming surgeries or procedure: no Does pt need refills on warfarin prescription: [facility] [address] [place] [address] Review of Systems Constitutional: Negative for activity change, appetite change and fatigue. HENT: Negative for nosebleeds. Respiratory: Positive for shortness of breath (05/16, resolved on its own). Cardiovascular: Positive for leg swelling (05/16 - right leg swelling, gained 2lbs overnight, resolved on its own). Negative for chest pain. Gastrointestinal: Negative for blood in stool, diarrhea, nausea and vomiting. Genitourinary: Negative for hematuria. Neurological: Negative for weakness, light-headedness and headaches. Hematological: Does not bruise/bleed easily. Objective Vitals: 05/18/25 1127 BP: 127/79 Pulse: 79 Weight: 254 lb 12.8 oz (116 kg) Assessment Lab Results Component Value Date INR 2.7 (H) 05/18/2025 INR 1.9 (H) 05/11/2025 INR 2.8 (A) 05/05/2025 INR 1.9 (H) 05/03/2025 INR 1.5 (H) 05/02/2025 Plan INR is therapeutic 2.7; Amiodarone dose decreased but will follow up next week to see if INR affected. Dosin.5mg on & Sat and 3mg on all other days Next INR Check: 05/25 Patient educated on the following: medication adherence and medication interactions Patient care coordination completed: medication list reviewed and updated and Refill Sent Positive ROS findings are: acute, pt instructed to follow-up with provider Bright was instructed to notify [facility] of any unusual bruising or active/uncontrollable bleeding, medication changes within 24 hours, missed doses, dietary changes, illnesses or hospitalizations, and upcoming surgeries. Patient given written instructions. Patient expressed understanding utilizing the teach back method. Discharged ambulatory in no apparent distress. Time spent 30 Minutes Arik Gilliland staffed with Patricia Vyas, BCACP, CACP documented in this encounter [facility] 05-15-2025 Telephone encounter Note Melatonin sent to pharmacy [facility] 05-15-2025 Miscellaneous Notes Melatonin sent to pharmacy documented in this encounter [facility] 05-15-2025 Telephone encounter Note S: Patient spoke with [facility] nurse regarding sleep issues since surgery. Best Call back: [phone] B: Aortic valve replacement 04/28/25; sleeping has been a problem since surgery, melantonin used per patient during hospital stay. Has not slept since home. A: No fever, chills, or body aches. Pain controlled well with tylenol, but states very mild discomfort now. Not using oxycodone at all. Ambulating during day often. Patient states no other issues, but cannot sleep. Has tried reclining in a chair, right arm seems restless at night, but no other issues noted. R: Home care provided: suggested trying the melatonin used in hospital and will report sleeping issues to boom conveyor operator, JAMES Kern, who sent a prescription to the pharmacy for Melatonin 5mg, leave voicemail for patient explaining prescription is at pharmacy, she wants him to start at 5mg versus 3 mg, also asked him to update office if sleeping continues to be an issue. Patient instructed to call back with new or worsening symptoms. Reason for Disposition [1] Caller has NON-URGENT question AND [2] triager unable to answer question Answer Assessment - Initial Assessment Questions See notes Protocols used: Post-Op Symptoms and [id number] [facility] 05-15-2025 Miscellaneous Notes S: Patient spoke with [facility] nurse regarding sleep issues since surgery. Best Call back: [phone] B: Aortic valve replacement 04/28/25; sleeping has been a problem since surgery, melantonin used per patient during hospital stay. Has not slept since home. A: No fever, chills, or body aches. Pain controlled well with tylenol, but states very mild discomfort now. Not using oxycodone at all. Ambulating during day often. Patient states no other issues, but cannot sleep. Has tried reclining in a chair, right arm seems restless at night, but no other issues noted. R: Home care provided: suggested trying the melatonin used in hospital and will report sleeping issues to boom conveyor operator, DENTAL TECHNOLOGIST Concha, who sent a prescription to the pharmacy for Melatonin 5mg, leave voicemail for patient explaining prescription is at pharmacy, she wants him to start at 5mg versus 3 mg, also asked him to update office if sleeping continues to be an issue. Patient instructed to call back with new or worsening symptoms. Reason for Disposition [1] Caller has NON-URGENT question AND [2] triager unable to answer question Answer Assessment - Initial Assessment Questions See notes Protocols used: Post-Op Symptoms and [id number] documented in this encounter [facility] 05-11-2025 History of Presen t illness Narrative Images from the original note were not included. [facility] Group: [facility] [address] [facility] [address] Dept: [phone] Dept Loc: [phone] Visit type: Established patient - in person Surgery/Procedure: s/p AVR (#25 [facility]) PFO repair and KATY with Dr. Ulloa on 04/28/25 Reason for Visit: post op follow up Assessment/Plan Diagnosis: Severe s/p AVR mec CHF POAF Plan: POD#13 Day from Discharge (05/03/25): # 8 -Reviewed current meds: continue as ordered Continue ASA/statin Amio - POAF - taper Coumadin per Nadir INR goal 2-3 lifelong therapy Inr 1.9 -Surgical Incisions: healing appropriately, well approximated, no s/s of infection -Physical therapy as outlined in discharge instructions: Not ready for Cardiac Rehab Not ready to drive -Weight restriction measures 1-4 weeks from date of surgery- 10lbs weight restriction: 05/26/25 5-8 weeks from date of surgery- 20lbs weight restriction approximate end date: 06/23/25 -Follow up with PCP and Cards - Dr. Jackson -Patient is going to ask PCP for Project Administrative Assistant in [place] - he would like one down there. If unable; ok for [facility]. -Plan follow up 3 week virtual visit. Patient to call with any questions or concerns. They verbalized understanding Subjective HPI: 55 y.o. male w pmHx of severe , CHF, HTN and recent ischemic stroke was seen in OP valve clinic for surgical evaluation. Of note patient was admitted to [facility] on 03/04/25 for stroke like symptoms, with MRI revealing four tiny acute embolic infarcts in the right frontal and occipital lobes, and left parietal lobe. Pt was treated with TNK and had drastic improvement in symptoms. During further workup, a transthoracic echo was obtained, which demonstrated EF 55%, LA and RA moderately dilated, and severe aortic valve stenosis concerning for potential etiology of cryptogenic stroke, peak/mean gradients 84/53 mm Hg, LITO 1.0 cm^2. He consent and was taken to the operating room for AVR and PFO repair with Dr. Ulloa on 04/28/25. Postoperative course patient developed rate controlled afib - no prior history. He was loaded with amiodarone and due to [facility] valve d/c'ed on OAC. Once medically optimized and hemodynamically stable. He was discharged home. Patient was not able to receive home care. Coordinated INR draws with [facility]. Will need ECHO in 3 months to assess valve. He was discharged home on POD #5 on 05/03/25. Ok with Dr. Ulloa even though INR 1.9. 05/11/25: 55 y.o. male who presents today for post op follow up. -Medications reviewed: compliant; no additional lasix needed at this time. -Pain is controlled. Currently taking OTC if needed -Incisions healing appropriately with no signs of infection and well approximated. MSI tape removed from incision. -Weight restriction discussed, ROM exercises discussed.Not ready to drive not ready for cardiac rehab -Other complaints: Patient doing well postoperatively. He is getting around and walking every day. Does get a little short of breath with ambulating and going up steps but feels he is doing better with stairs then prior to surgery. Pain controlled. Only real issues that he has is he is having a hard time sleeping. Wants to give it more time. But may try melatonin. INR check today with [facility] INR 1.9 - dose adjusted. Objective Vitals: 05/11/25 1124 BP: 138/80 Pulse: 86 Physical Exam Cardiovascular: Rate and Rhythm: Normal rate and regular rhythm. Heart sounds: Normal heart sounds. No murmur heard. No friction rub. Pulmonary: Effort: Pulmonary effort is normal. Skin: General: Skin is warm and dry. Capillary Refill: Capillary refill takes less than 2 seconds. Findings: Bruising and ecchymosis present. Comments: Surgical Incisions: well approximate; clean dry with no drainage noted. Surrounding skin no redness, warmth, or signs of infection noted. Neurological: Mental Status: He is alert. Psychiatric: Behavior: Behavior is cooperative. Labs/Imaging/Testing: reviewed EMR, see A&P for pertinent diagnostic results related to office visit Disclaimer INFORMED CONSENT:The nature and purpose of the proposed treatment or procedure have been discussed. The risks and benefits of the proposed treatment or procedures have been reviewed. Alternatives have been reviewed in addition to the risks and benefits of not receiving treatments or undergoing procedures. Pursuant to this discussion, the patient agrees to undergo the proposed treatment or procedure. Captured images seen in this note from are not a substitute for a comprehensive interpretation of the entire data set as reflected by the interpreting physician with regard to radiology, echocardiography, and other diagnostic images. This note may have been dictated using [employer] Edition 2.6 and/or AFrame Digital Voice Recognition Feature. The document was proofread, however unrecognized voice recognition field service poultry technician errors may be present. documented in this encounter [facility] 05-11-2025 History of Presen t illness Narrative Images from the original note were not included. [facility] ([facility]) Anticoagulation Clinic [address], [place] [address] Jose Paniagua (1970) presents to the [facility] clinic today for initial warfarin visit. The primary encounter diagnosis was Severe aortic stenosis. A diagnosis of Status post mechanical aortic valve replacement was also pertinent to this visit. and has a goal INR 2.0-3.0. Pt has Coumadin 3mg tablets and at last visit was instructed to take 3 mg daily . Pt confirms taking this dose and adherence to current regimen: yes Any changes in prescriptions, OTC, and/or herbal medications: yes, currently taking amiodarone and will reduce doseage next week. Changes in alcohol, tobacco, or marijuana use: no use Any recent hospitalizations or ED visits: yes, recent AVR Any recent falls or head trauma: no Any changes in diet (vit K): no, is eating consistently with vit K foods Upcoming surgeries or procedure: no Does pt need refills on warfarin prescription: no Review of Systems Constitutional: Positive for fatigue. Negative for activity change and appetite change. HENT: Negative for nosebleeds. Respiratory: Negative for shortness of breath. Cardiovascular: Positive for chest pain (acute post op chest pain). Negative for leg swelling. Gastrointestinal: Negative for blood in stool, diarrhea, nausea and vomiting. Genitourinary: Negative for hematuria. Neurological: Negative for weakness, light-headedness and headaches. Hematological: Does not bruise/bleed easily. Objective Vitals: 05/11/25 1010 BP: (!) 149/82 Pulse: 80 Weight: 255 lb 6.4 oz (116 kg) Assessment Lab Results Component Value Date INR 1.9 (H) 05/11/2025 INR 2.8 (A) 05/05/2025 INR 1.9 (H) 05/03/2025 INR 1.5 (H) 05/02/2025 INR 1.0 05/01/2025 Plan INR is subtherapeutic d/t new start. Amiodarone dose will be reduced next week. Dosing: take 4.5 mg today and Saturday; 3 mg all other days Next INR Check: 05/18/2025 Patient educated on the following: dietary/lifestyle considerations and Vitamin K content and consistency Patient care coordination completed: N/A Positive ROS findings are: no follow up necessary for acute post op pain. Seeing CTS today Bright was instructed to notify [facility] of any unusual bruising or active/uncontrollable bleeding, medication changes within 24 hours, missed doses, dietary changes, illnesses or hospitalizations, and upcoming surgeries. Patient given written instructions. Patient expressed understanding utilizing the teach back method. Discharged ambulatory in no apparent distress. Time spent 30 Minutes Cullen Lawrence RN staffed with Patricia Vyas, BCACP, CACP documented in this encounter [facility] 05-03-2025 History of Presen t illness Narrative Images from the original note were not included. Bright Keen is a 55 y.o. male admitted on 04/28/2025 for Aortic stenosis, severe. Patient is newly referred to the [facility] clinic for warfarin management. Pt was referred by KISHA Pitt CNP. Pt is on warfarin for mechanical AVR and has a goal INR 2.0 - 3.0. Duration of therapy= lifelong. Reason for warfarin instead of DOAC: mechanical valve Pt discharged to home on 05/03. Updated tracker with hospital doses. Warfarin dosing instructions: 3mg daily New interacting meds: amiodarone Next [facility] appt: Saturday 05/05 - to go to [facility] lab (faxed order to them) so will likely get results on 05/06. Instructed pt to take 3mg on Saturday night if we haven't called. Also scheduled first visit at [facility] on 05/11 when he sees CTS. documented in this encounter [facility] 05-03-2025 History of Presen t illness Narrative Images from the original note were not included. Bright Keen is a 55 y.o. male admitted on 04/28/2025 for Aortic stenosis, severe. Patient is newly referred to the [facility] clinic for warfarin management. Pt was referred by KISHA Pitt CNP. Pt is on warfarin for mechanical AVR and has a goal INR 2.0 - 3.0. Duration of therapy= lifelong. Reason for warfarin instead of DOAC: mechanical valve Pt discharged to home on 05/03. Updated tracker with hospital doses. Warfarin dosing instructions: 3mg daily New interacting meds: amiodarone Next [facility] appt: Saturday 05/05 - to go to [facility] lab (faxed order to them) so will likely get results on 05/06. Instructed pt to take 3mg on Saturday night if we haven't called. Also scheduled first visit at [facility] on 05/11 when he sees CTS. Updated episode. documented in this encounter [facility] 05-03-2025 History of Presen t illness Narrative Images from the original note were not included. PHYSICAL THERAPY Formerly [facility] Treatment Note Name/MRN: Bright Keen ([id number]) Date of : 1970 Age: 55 y.o. Room/Bed: T1-111/T1-111 A Discharge Recommendation: Home with assist PRN, Outpatient PT Other: TBD Assessment Patient is independent with sit to stand transfers as well as ambulation. Patient was able to successfully complete 4 stairs x3 with independence. Patient has met most goals and is adequate for discharge. Would recommend home with assist as needed along with outpatient PT at discharge. Subjective Patient was up in chair when PT arrived. Patient was cleared for PT by RN. Pain: Patient reported pain in the sternum but did not quantify pain Medical Precautions: No active isolations Proper PPE donned/doffed in accordance with facility standards. Fall Risk: De La Torre Fall Risk Score: 50 (High Risk) Precautions/Restrictions: Sternal Precautions: No lifting greater than 10 lbs. Ok for modified UE precautions using Keep Your Move in the Tube technique Lines/Drains/Airways: tele Skin care precautions Overall Cognitive Status: Exceptions - Arousal/alertness: appropriate responses to stimuli - Following commands: follows all commands without difficulty Overall Orientation Status: Oriented to Person Family/Caregiver Present: spouse Objective Transfers/Mobility Sit to stand: Independent Stand to sit: Independent Reviewed sternal precautions before transfer Device(s) used: None Ambulation Ambulation 1 Assistive device(s) used: Used a nezzie for the first 50 feet but then said stated he did not need assistive device anymore Assist level: Independent Distance (ft): 350 Quality of gait: equal step length, slow scotty Balance During Session: Posture: fair Standing - Static: Patient was able to use restroom and when asked if patient needed office assistant receptionist patient denied Standing - Dynamic: While walking, patient wanted to stretch out legs and did one legged stance with hand hold assist for minimal support Stairs Stairs 1 Assistive device(s) used: None Assist level: Independent # of steps: 4 x3 Rails: L going up and R going down Additional factors: reciprocal going up, reciprocal going down Plan Continue acute PT per plan of care. Safety/Education Safety Safety Devices in place: call light within reach and left in chair Restraints: No Education Education Given To: patient Education Provided: PT Role, PT Goals, Gait Training, and Precautions Education Method: Verbal and Demonstration Barriers to Learning: None Education Outcome: Verbalized Understanding and Demonstrated Understanding Outcome Measures AM-PAC AM-PAC Inpatient Mobility Raw Score : 23 AM-PAC Inpatient Mobility Raw Score (No Stairs) : 20 JH-HLM JH-HLM Score: Walked 250 ft or more (i.e. several laps on unit) Goals Patient Stated Goal: to get better Encounter Problems Encounter Problems (Active) Cardiac Patient will perform bed mobility with modified independence in order to improve independence and prepare for out of bed mobility. (Not Addressed) Start: 04/29/25 Expected End: 05/27/25 Patient will complete sit to stand transfer with modified independence in order to improve safety and prepare for out of bed mobility. (Completed) Start: 04/29/25 Expected End: 05/27/25 Resolved: 05/03/25 Patient will ambulate 350 feet or ambulate 5 minutes with modified independence with RPE of 14 or lower. (Completed) Start: 04/29/25 Expected End: 05/27/25 Resolved: 05/03/25 Patient will ascend and descend 4 # stairs with supervision rail for balance only. (Completed) Start: 04/29/25 Expected End: 05/27/25 Resolved: 05/03/25 Patient will be independent with P&C exercises. (Not Addressed) Start: 04/29/25 Expected End: 05/27/25 Patient will be independent with managing secretions and home walking program. (Progressing) Start: 04/29/25 Expected End: 05/27/25 Pain - Adult Therapy Time Individual Co-treatment Time In 09 Time Out 1008 Minutes 12 Roberto White, SPT Cosigned by Mariam Jacobs, PT at 05/03/2025 1:16 PM EDT [facility] Anticoagulation Management Service ([facility]) Inpatient Warfarin Consult HPI: Bright Keen is a 55 y.o. male admitted on 04/28/2025 for Aortic stenosis, severe. Medical History[1] Patient is newly referred to the [facility] clinic for warfarin management. Pt was referred by KISHA Pitt CNP. Pt is on warfarin for mechanical AVR and has a goal INR 2.0 - 3.0. Duration of therapy= lifelong. Reason for warfarin instead of DOAC: mechanical valve PCP: Asher Jesus PA-C S/sx of bleeding= None beyond surgical bruising and ecchymosis Interacting medications= ASA, amiodarone, Lovenox 40mg, tylenol >2gm Labs: Recent Labs 05/01/25 0320 05/02/25 0529 05/03/25 0434 HGB 11.3* 11.2* 11.6* HCT 34.7* 33.2* 34.2* PLT 122* 181 240 Recent Labs 05/03/25 0434 INR 1.9* Date INR Dose 05/03 1.9 3mg 05/02 1.5 3mg 05/01 1.0 5mg 04/30 1.0 3mg 04/29 1.1 3mg Assessment/Plan: 1. INR is subtherapeutic due to new start warfarin but is rising appropriately and will likely be therapeutic by next check. Will continue warfarin 3 mg today. 2. Will monitor for s/s of bleeding and drug interactions and adjust dose accordingly. 3. Will facilitate [facility] follow-up upon discharge. Plan for discharge today. Patient to continue taking warfarin 3mg daily at discharge and will go to [facility] lab for INR check on Saturday 05/05. [facility] will call him with further instructions. 4. Provided preop education last week. Reviewed with patient today. Jenae Delcid RPh [facility] Consult Service is available daily [phone] via [place] Secure Chat. If no response, please page [phone]. [1] Past Medical History: Diagnosis Date Heart valve disorder Hyperlipidemia Hypertension Stroke (HCC) no residual Images from the original note were not included. Cardiothoracic Surgery/[facility] Progress Note PATIENT NAME: Bright Keen DATE: 05/03/25 HPI: 55 y.o. male w pmHx of severe , CHF, HTN and recent ischemic stroke was seen in OP valve clinic for surgical evaluation. Of note patient was admitted to [facility] on 03/04/25 for stroke like symptoms, with MRI revealing four tiny acute embolic infarcts in the right frontal and occipital lobes, and left parietal lobe. Pt was treated with TNK and had drastic improvement in symptoms. During further workup, a transthoracic echo was obtained, which demonstrated EF 55%, LA and RA moderately dilated, and severe aortic valve stenosis concerning for potential etiology of cryptogenic stroke, peak/mean gradients 84/53 mm Hg, LITO 1.0 cm^2. He consent and was taken to the operating room for AVR and PFO repair with Dr. Ulloa on 04/28/25 Surgery/Procedure: 04/28/25: s/p AVR (#25 [facility]) PFO repair and KATY with Dr. Ulloa Interval History: 05/03/25, POD# 5: VSS on RA. No acute issues noted overnight. Patient wants to go home. Did have some coughing episodes over weekend - happened around dinner both time. No needs at this time. Review of Systems Constitutional: Negative for diaphoresis, fatigue and fever. Respiratory: Negative for cough, shortness of breath and wheezing. Cardiovascular: Negative for chest pain, palpitations and leg swelling. Gastrointestinal: Negative for abdominal distention, constipation and diarrhea. Skin: Negative for color change, pallor and rash. Objective: Last BM Date: 05/01/25 Vitals: BP: 140/76, MAP (mmHg): 95, BP Method: Automatic Heart Rate: 80 Resp: 16 Temp: 36.8 C (98.2 F), Temp Source: Temporal BMI (Calculated): 37.28 Pacer Wires: v wires CXR: BMP: Recent Labs 05/01/2531905/02/25 0505/03/25 0434 NA 133* 135* 138 K 4.4 3.7 3.6 CL 101 102 103 CO2 21* 23 28 BUN 17 14 17 CREATININE 0.73 0.72 0.82 CALCIUM 8.5 8.4 8.7 MG 1.9 2.0 2.0 CBC: Recent Labs 05/01/2531905/02/25 0505/03/25 0434 WBC 10.3 8.1 7.2 HGB 11.3* 11.2* 11.6* HCT 34.7* 33.2* 34.2* PLT 122* 181 240 MCV 83.8 82.4 83.2 RDW 13.4 13.7 13.7 INR: Recent Labs 05/01/2531905/02/2552805/03/25 0434 INR 1.0 1.5* 1.9* Physical Exam Cardiovascular: Rate and Rhythm: Normal rate. Rhythm irregular. Heart sounds: Normal heart sounds. No murmur heard. No friction rub. Comments: Mech valve heard Pulmonary: Effort: Pulmonary effort is normal. Skin: General: Skin is warm and dry. Capillary Refill: Capillary refill takes less than 2 seconds. Findings: Bruising and ecchymosis present. Comments: Surgical Incisions: well approximate; clean dry with no drainage noted. Surrounding skin no redness, warmth, or signs of infection noted. Neurological: Mental Status: He is alert. Psychiatric: Behavior: Behavior is cooperative. Assessment: Severe s/p AVR mech CHF Post operative Pulm Management: Normal Post-operative Course Post-operative Atrial Fibrillation: [x]Yes [] No Plan: Patient Status: Telemetry Medications: Continue ASA, statin Amio PO -POAF Lasix IV daily - will need d/c on short regimen [facility] for coumadin life long therapy- 2-3 -lovenox subq per surgeon -INR 1.9 - patient wants to go home will discuss with surgeon GI prophy: PO protonix DVT prophy: Lovenox SubQ + coumadin Bowel: senna/miralax Interventions: Pulmonary hygiene: IS and Acapella TEDs, SCDs Restraints: []Yes [x] No Consults: Endocrine - signed off Therapies: PT: home with assist Disposition: TBD - progressive care - likely d/c ttoday vs tomorrow Tele Status A total of 18 minutes were spent between the [id number] encounter, physical exam, reviewing the medical history, coordinating the patient's care, counseling/educating the patient, ordering medications/test/procedures, interpreting results and documenting clinical information in the patients electronic health record on the day of the encounter. The patient was seen and examined Patient discussed and plan of day developed from multidisciplinary rounds between Cardiothoracic Surgery (Cardiothoracic Surgeon, DEJA) and Critical Care Attending Cardiac Core Medications: ASA and Statin EF: 55% Blood Conservation: None noted in post-operative period Project Administrative Assistant: Dr. Jackson Cosigned by Randy Patton MD at 05/03/2025 7:58 AM EDT [facility] Anticoagulation Management Service ([facility]) Inpatient Warfarin Consult HPI: Bright Keen is a 55 y.o. male admitted on 04/28/2025 for Aortic stenosis, severe. Medical History[1] Patient is newly referred to the [facility] clinic for warfarin management. Pt was referred by KISHA Pitt CNP. Pt is on warfarin for mechanical AVR and has a goal INR 2.0 - 3.0. Duration of therapy= lifelong. Reason for warfarin instead of DOAC: mechanical valve PCP: Asher Jesus PA-C S/sx of bleeding= None beyond surgical bruising and ecchymosis Interacting medications= ASA, amiodarone, Lovenox 40mg, tylenol >2gm Labs: Recent Labs 04/30/25 0313 05/01/25 0320 05/02/25 0529 HGB 11.6* 11.3* 11.2* HCT 35.7* 34.7* 33.2* PLT 110* 122* 181 Recent Labs 05/02/25 0529 INR 1.5* Date INR Dose 05/02 1.5 3 mg 05/01 1.0 5mg 04/30 1.0 3mg 04/29 1.1 3mg Assessment/Plan: 1. INR is subtherapeutic due to new start warfarin- on day 4. Will give 3 mg today. 2. Will monitor for s/s of bleeding and drug interactions and adjust dose accordingly. 3. Will facilitate [facility] follow-up upon discharge. 4. [facility] clinic provided preop education last week. Will follow up prior to discharge to see if he has any questions. Anna Rivera PharmD [facility] Consult Service is available daily [phone] via [place] Secure Chat. If no response, please page [phone]. [1] Past Medical History: Diagnosis Date Heart valve disorder Hyperlipidemia Hypertension Stroke (HCC) no residual Images from the original note were not included. Cardiothoracic Surgery/[facility] Progress Note PATIENT NAME: Bright Keen DATE: 05/02/25 HPI: 55 y.o. male w pmHx of severe , CHF, HTN and recent ischemic stroke was seen in OP valve clinic for surgical evaluation. Of note patient was admitted to [facility] on 03/04/25 for stroke like symptoms, with MRI revealing four tiny acute embolic infarcts in the right frontal and occipital lobes, and left parietal lobe. Pt was treated with TNK and had drastic improvement in symptoms. During further workup, a transthoracic echo was obtained, which demonstrated EF 55%, LA and RA moderately dilated, and severe aortic valve stenosis concerning for potential etiology of cryptogenic stroke, peak/mean gradients 84/53 mm Hg, LITO 1.0 cm^2. He consent and was taken to the operating room for AVR and PFO repair with Dr. Ulloa on 04/28/25 Surgery/Procedure: 04/28/25: s/p AVR (#25 [facility]) PFO repair and KATY with Dr. Ulloa Interval History: 05/02/25, POD# 04. Afebrile, rate controlled afib on tele, BP stable, on RA. Up walking unit this AM with . Objective: Last BM Date: 05/01/25 Vitals: BP: 129/82, MAP (mmHg): 96, BP Method: Automatic Heart Rate: 75 Resp: 16 Temp: 36.8 C (98.2 F), Temp Source: Temporal BMI (Calculated): 37.68 BMP: Recent Labs 04/30/2531205/01/25 0320 05/02/25 0529 NA 128* 133* 135* K 4.6 4.4 3.7 CL 101 101 102 CO2 24 21* 23 BUN 16 17 14 CREATININE 0.76 0.73 0.72 CALCIUM 8.6 8.5 8.4 MG 2.0 1.9 2.0 CBC: Recent Labs 04/30/2531205/01/25 0320 05/02/25 0529 WBC 11.4* 10.3 8.1 HGB 11.6* 11.3* 11.2* HCT 35.7* 34.7* 33.2* PLT 110* 122* 181 MCV 85.4 83.8 82.4 RDW 13.5 13.4 13.7 INR: Recent Labs 04/30/2531205/01/25 0320 05/02/25 0529 INR 1.0 1.0 1.5* Physical Exam Vitals reviewed. Constitutional: General: He is not in acute distress. Appearance: He is not ill-appearing or diaphoretic. Cardiovascular: Rate and Rhythm: Normal rate. Rhythm irregular. Pulses: Normal pulses. Heart sounds: No murmur heard. Pulmonary: Effort: Pulmonary effort is normal. Breath sounds: No wheezing, rhonchi or rales. Abdominal: General: There is no distension. Palpations: Abdomen is soft. Tenderness: There is no abdominal tenderness. Musculoskeletal: General: Swelling present. Skin: General: Skin is warm and dry. Capillary Refill: Capillary refill takes less than 2 seconds. Findings: Bruising present. Neurological: General: No focal deficit present. Mental Status: He is alert and oriented to person, place, and time. Assessment: Severe s/p AVR [facility] CHF Post operative Pulm Management: Normal Post-operative Course Post-operative Atrial Fibrillation: [x]Yes [] No Plan: Patient status: PCU Daily aspirin. [facility] following for coumadin management. -Mechanical AVR, goal INR 2.0-3.0 for life. -INR 1.5 today. Lovenox subcutaneous. Lasix 40mg IV daily. Change to PO amio 400mg BID. -Rate controlled afib. Bowel regimen. Encourage PO intake. Out of bed for meals, progressive mobility. Melatonin and trazodone at night. Remove central line. GI prophy: PO protonix DVT prophy:TEDs, SCDs, and Lovenox SubQ Pulmonary hygiene: IS and Acapella Consults: Endocrinology. PT/OT: Home with assist PRN (04/30/25) TCC/Discharge Planning Home when INR therapeutic. Central Line: [x]Yes [] No Arterial Line: []Yes [x] No Matias: []Yes [x] No Restraints: []Yes [x] No Patient discussed and plan of day developed from multidisciplinary rounds between Cardiothoracic Surgery (Cardiothoracic Surgeon, DEJA) and Critical Care Attending A total of 22 minutes were spent between the [id number] encounter, physical exam, reviewing the medical history, coordinating the patient's care, counseling/educating the patient, ordering medications/test/procedures, interpreting results and documenting clinical information in the patients electronic health record on the day of the encounter. The patient was seen and examined. Cardiac Core Medications: Not indicated due to type of surgery EF: 55% (03/05/25) Blood Conservation: None noted in post-operative period Project Administrative Assistant: Dr. Jackson Cosigned by Jadiel Wellington DO at 05/02/2025 12:40 PM EDT [facility] Anticoagulation Management Service ([facility]) Inpatient Warfarin Consult HPI: Bright Keen is a 55 y.o. male admitted on 04/28/2025 for Aortic stenosis, severe. Medical History[1] Patient is newly referred to the [facility] clinic for warfarin management. Pt was referred by KISHA Pitt CNP. Pt is on warfarin for mechanical AVR and has a goal INR 2.0 - 3.0. Duration of therapy= lifelong. Reason for warfarin instead of DOAC: mechanical valve PCP: Asher Jesus PA-C S/sx of bleeding= None beyond surgical bruising and ecchymosis Interacting medications= ASA, amiodarone, Lovenox 40mg Labs: Recent Labs 04/29/25 0224 04/30/25 0313 05/01/25 0320 HGB 12.4* 11.6* 11.3* HCT 38.6* 35.7* 34.7* PLT 145 110* 122* Recent Labs 05/01/25 0320 INR 1.0 Date INR Dose 05/01 1.0 5mg 04/30 1.0 3mg 04/29 1.1 3mg Assessment/Plan: 1. INR is subtherapeutic due to new start warfarin- on day 3. Will give 5 mg today 2. Will monitor for s/s of bleeding and drug interactions and adjust dose accordingly. 3. Will facilitate [facility] follow-up upon discharge. 4. [facility] clinic provided preop education last week. Will follow up prior to discharge to see if he has any questions. Mihaela Unger PharmD [facility] Consult Service is available daily [phone] via [place] Secure Chat. If no response, please page [phone]. [1] Past Medical History: Diagnosis Date Heart valve disorder Hyperlipidemia Hypertension Stroke (HCC) no residual Images from the original note were not included. Cardiothoracic Surgery/[facility] Progress Note PATIENT NAME: Bright Keen DATE: 05/01/25 HPI: 55 y.o. male w pmHx of severe , CHF, HTN and recent ischemic stroke was seen in OP valve clinic for surgical evaluation. Of note patient was admitted to [facility] on 03/04/25 for stroke like symptoms, with MRI revealing four tiny acute embolic infarcts in the right frontal and occipital lobes, and left parietal lobe. Pt was treated with TNK and had drastic improvement in symptoms. During further workup, a transthoracic echo was obtained, which demonstrated EF 55%, LA and RA moderately dilated, and severe aortic valve stenosis concerning for potential etiology of cryptogenic stroke, peak/mean gradients 84/53 mm Hg, LITO 1.0 cm^2. He consent and was taken to the operating room for AVR and PFO repair with Dr. Ulloa on 04/28/25 Surgery/Procedure: 04/28/25: s/p AVR (#25 [facility]) PFO repair and KATY with Dr. Ulloa Interval History: 05/01/25, POD# 03: Afebrile, rate controlled afib on tele, BP stable, on 1L NC. Labs stable, INR 1.0. Chest tubes removed. Difficulty sleeping, anxiety. Objective: UO cc/24hrs: 1000 Last BM Date: 04/27/25 Vitals: BP: 136/73, MAP (mmHg): 92, BP Method: Automatic Heart Rate: 74 Resp: 16 Temp: 36 C (96.8 F), Temp Source: Temporal BMI (Calculated): 39.16 BMP: Recent Labs 04/29/2522304/30/2531205/01/25 0320 NA 137 128* 133* K 5.0 4.6 4.4 CL 110* 101 101 CO2 20* 24 21* BUN 17 16 17 CREATININE 0.89 0.76 0.73 CALCIUM 8.0* 8.6 8.5 MG 2.4 2.0 1.9 CBC: Recent Labs 04/29/2522304/30/253 05/01/25 0320 WBC 13.5* 11.4* 10.3 HGB 12.4* 11.6* 11.3* HCT 38.6* 35.7* 34.7* PLT 145 110* 122* MCV 85.0 85.4 83.8 RDW 13.5 13.5 13.4 INR: Recent Labs 04/29/25224 04/30/25 0313 05/01/25 0320 INR 1.1 1.0 1.0 Physical Exam Vitals reviewed. Constitutional: General: He is not in acute distress. Appearance: He is not ill-appearing or diaphoretic. Cardiovascular: Rate and Rhythm: Normal rate. Rhythm irregular. Pulses: Normal pulses. Heart sounds: No murmur heard. Pulmonary: Effort: Pulmonary effort is normal. Breath sounds: No wheezing, rhonchi or rales. Comments: Shallow breathing d/t pain. Abdominal: General: There is no distension. Palpations: Abdomen is soft. Tenderness: There is no abdominal tenderness. Musculoskeletal: General: Swelling present. Skin: General: Skin is warm and dry. Capillary Refill: Capillary refill takes less than 2 seconds. Findings: Bruising present. Neurological: General: No focal deficit present. Mental Status: He is alert and oriented to person, place, and time. Assessment: Severe s/p AVR [facility] CHF Post operative Pulm Management: Normal Post-operative Course Post-operative Atrial Fibrillation: [x]Yes [] No Plan: Patient status: PCU Daily aspirin. [facility] following for coumadin management. -Mechanical AVR, goal INR 2.0-3.0 for life. -INR 1.0 today. Lovenox subcutaneous. Lasix 40mg IV daily. Cut amio to 0.5mg/min. Bowel regimen. Encourage PO intake. Out of bed for meals, progressive mobility. Melatonin at night. Will try low dose trazodone for sleep. GI prophy: PO protonix DVT prophy:TEDs, SCDs, and Lovenox SubQ Pulmonary hygiene: IS and Acapella Consults: Endocrinology. PT/OT: Home with assist PRN (04/30/25) TCC/Discharge Planning Home when INR therapeutic. Central Line: [x]Yes [] No Arterial Line: []Yes [x] No Matias: []Yes [x] No Restraints: []Yes [x] No Patient discussed and plan of day developed from multidisciplinary rounds between Cardiothoracic Surgery (Cardiothoracic Surgeon, DEJA) and Critical Care Attending A total of 20 minutes were spent between the [id number] encounter, physical exam, reviewing the medical history, coordinating the patient's care, counseling/educating the patient, ordering medications/test/procedures, interpreting results and documenting clinical information in the patients electronic health record on the day of the encounter. The patient was seen and examined. Cardiac Core Medications: Not indicated due to type of surgery EF: 55% (03/05/25) Blood Conservation: None noted in post-operative period Project Administrative Assistant: Dr. Jackson Cosigned by Jadiel Wellington DO at 05/01/2025 3:18 PM EDT Images from the original note were not included. PHYSICAL THERAPY Formerly [facility] Treatment Note Name/MRN: Bright Keen ([id number]) Date of : 1970 Age: 55 y.o. Room/Bed: T1-111/T1-111 A Discharge Recommendation: Home with assist PRN, Outpatient PT (outpatient cardiac rehab) Other: TBD Assessment Patient remains limited by sternal pain and generalized weakness. Patient required min A for supine <> sit and CGA for sit <> stand transfers. Patient ambulated 100 feet using Nezzie with CGA, required multiple short standing rest breaks. Recommend home with assist PRN and outpatient cardiac rehab. Subjective RN cleared patient for PT eval. Patient awake in bed, pleasant and agreeable to therapy. States he had some heart rhythm problems today and is sweating a lot. Pain: sternum Medical Precautions: No active isolations Proper PPE donned/doffed in accordance with facility standards. Fall Risk: De La Torre Fall Risk Score: 45 (High Risk) Precautions/Restrictions: Sternal Precautions: No lifting greater than 10 lbs. Ok for modified UE precautions using Keep Your Move in the Tube technique Lines/Drains/Airways: tele, continuous pulse ox, PIV Skin care precautions Overall Cognitive Status: WNL Overall Orientation Status: Oriented x4 Family/Caregiver Present: spouse Objective Bed Mobility Supine to sit: Min Assist Scooting: Contact Guard (seated) HOB elevated, required increased time to perform.. Reported dizziness which resolved with static sitting. Transfers/Mobility Sit to stand: Contact Guard Stand to sit: Contact Guard From EOB, cues for sternal precautions Device(s) used: Nezzie Ambulation Ambulation 1 Assistive device(s) used: Nezzie Assist level: Contact Guard Distance (ft): 100 (multiple short standing rest breaks) Quality of gait: No LOB, slow scotty, postural sway, cues for upright posture Exercises Plan Continue acute PT per plan of care. Safety/Education Safety Safety Devices in place: call light within reach, left in chair, nurse notified, and no alarms engaged upon entry Restraints: No Education Education Given To: patient Education Provided: PT Goals, Plan of Care, and Precautions Education Method: Verbal Barriers to Learning: None Education Outcome: Verbalized Understanding Outcome Measures AM-PAC AM-PAC Inpatient Mobility Raw Score (No Stairs) : 15 JH-HLM JH-HLM Score: Walked 25 ft or more (i.e. walked outside of room) Goals Patient Stated Goal: to get better Encounter Problems Encounter Problems (Active) Cardiac Patient will perform bed mobility with modified independence in order to improve independence and prepare for out of bed mobility. (Progressing) Start: 04/29/25 Expected End: 05/27/25 Patient will complete sit to stand transfer with modified independence in order to improve safety and prepare for out of bed mobility. (Not Progressing) Start: 04/29/25 Expected End: 05/27/25 Patient will ambulate 350 feet or ambulate 5 minutes with modified independence with RPE of 14 or lower. (Progressing) Start: 04/29/25 Expected End: 05/27/25 Patient will ascend and descend 4 # stairs with supervision rail for balance only. (Not Addressed) Start: 04/29/25 Expected End: 05/27/25 Patient will be independent with P&C exercises. (Not Addressed) Start: 04/29/25 Expected End: 05/27/25 Patient will be independent with managing secretions and home walking program. (Progressing) Start: 04/29/25 Expected End: 05/27/25 Pain - Adult Therapy Time Individual Co-treatment Time In 1158 Time Out 1218 Minutes 20 Timed Code Treatment Minutes: 20 Minutes (gait) Mariam Jacobs PT Chest tubes assessed: no air leak, subcutaneous air noted. Chest tubes removed without difficulty and dressing applied. Patient tolerated well. Patient and nurse educated on possible complications to observe for. Will continue to monitor. Department of Internal Medicine Division of Endocrinology, Diabetes, & Metabolism Endocrinology Note Patient Name: Bright Keen : 1970 AGE: 55 y.o. Room[facility]Bed: [facility] Admission Date: 04/28/2025 Visit Date: 04/30/2025 Reason for Endocrine Consult: post heart Provider/Team Requesting Consult: CTS PCP: Asher Jesus PA-C Outpt Geodetic Surveyor: No ASSESSMENT: Stress hyperglycemia AVR HLD/HTN Obesity Body mass index is 39.16 kg/m . PLAN: Blood sugar has been stable without the need for insulin administration Stop Humalog sliding scale and POCT checks Endocrine will sign off at this time please reach out to us with any further questions or concerns ICU goal <180 GMF goal <150 POCT BG ACHS Hypoglycemia management per protocol Carb controlled diet ANTICIPATED ENDOCRINE HOME GOING RECOMMENDATIONS: Optimized for Discharge from Endocrine standpoint: yes Home Going Endocrine Rx Recommendations-- NONE Outpt Follow Up-- PCP SUBJECTIVE/HPI: CHIEF COMPLAINT: No chief complaint on file. S/p AVR BGL below- stable Awake alert up in chair Is on amiodarone drip for irregular heart rhythm Did not eat much breakfast but states he ordered soup for lunch Does have some nausea and not hungry Denies vomiting Family in room questions addressed Blood sugars have been stable we will sign off at this time Spoke with team Type of DM: NA Onset of DM: NA Home DM Medication Regimen: NA DM control (last A1c/glucose data): Lab Results Component Value Date HGBA1C 5.4 04/21/2025 Glucose Date/Time Value Ref Range Status 04/29/2025 05:02 PM 116 (H) 70 - 100 mg/dL Final 04/29/2025 10:59 AM 131 (H) 70 - 100 mg/dL Final 04/29/2025 10:15 AM 126 (H) 70 - 100 mg/dL Final 04/29/2025 09:21 AM 119 (H) 70 - 100 mg/dL Final 04/29/2025 08:42 AM 136 (H) 70 - 100 mg/dL Final 04/29/2025 07:11 AM 127 (H) 70 - 100 mg/dL Final Review of Systems ROS negative except for those mentioned in HPI. OBJECTIVE: Vitals: 04/30/25 0800 04/30/25 0809 04/30/25 0900 04/30/25 1000 BP: 115/70 124/73 127/74 Pulse: 73 78 67 65 Resp: (!) 26 19 13 15 Temp: 36.3 C (97.4 F) TempSrc: Temporal SpO2: 96% 97% 96% 96% Weight: Height: Physical Exam Vitals and nursing note reviewed. Constitutional: General: He is awake. He is not in acute distress. Appearance: He is ill-appearing. He is not toxic-appearing. Interventions: Nasal cannula in place. HENT: Head: Normocephalic. Mouth/Throat: Mouth: Mucous membranes are moist. Cardiovascular: Rate and Rhythm: Rhythm irregular. Pulmonary: Effort: Pulmonary effort is normal. No respiratory distress. Abdominal: Tenderness: There is no guarding. Skin: General: Skin is warm and dry. Coloration: Skin is pale. Comments: Intact incision Neurological: Mental Status: He is alert and oriented to person, place, and time. Mental status is at baseline. Psychiatric: Mood and Affect: Mood normal. 24 hour intake/output: Intake/Output Summary (Last 24 hours) at 04/30/2025 1027 Last data filed at 04/30/2025 0800 Gross per 24 hour Intake 850 ml Output 920 ml Net -70 ml Diet: Adult diet Regular; Low Sodium (2 gm) Medications (as per EMR): HomeMeds: Current Outpatient Medications Medication Instructions aspirin 81 mg, Oral, Daily atorvastatin (LIPITOR) 40 mg, Oral, Daily chlorhexidine (Peridex) 0.12 % solution 15 mL, Once mupirocin (Bactroban) 2 % ointment Apply liberal amount per nostril the night before surgery and then again the morning of surgery Scheduled Meds:Scheduled Meds[1] Continuous Infusions:Continuous Meds[2] PRN Meds:PRN Meds[3] Diagnostic Workup: I reviewed pertinent Laboratory results, Radiographic results, and Other Clinical Notes at the time of today's encounter. Labs: No components found for: LABA1C No components found for: EAG Lab Results Component Value Date NA 128 (L) 04/30/2025 K 4.6 04/30/2025 CL 101 04/30/2025 CO2 24 04/30/2025 BUN 16 04/30/2025 CREATININE 0.76 04/30/2025 GLUCOSE 115 (H) 04/30/2025 CALCIUM 8.6 04/30/2025 Lab Results Component Value Date CHOL 177 03/05/2025 Lab Results Component Value Date TRIG 44 03/05/2025 Lab Results Component Value Date HDL 35 (L) 03/05/2025 Lab Results Component Value Date LDLCALC 133 (H) 03/05/2025 No results found for: VLDL Lab Results Component Value Date CHOLHDLRATIO 5 03/05/2025 No results found for: [id number] No results found for: TSH, E6LKOPT, O0HDFXH, THYROIDAB Radiology reportsas per the Radiologist Radiology: ECG 12 lead Result Date: 04/28/2025 Sinus rhythm Anterior infarct, old Prolonged QT interval POCT glucose meter Result Date: 04/28/2025 Performed by: [facility], [address] [place] [address] CLIA ID: [id number] History/Other: Past Medical History: Medical History[4] Past Surgical History: Surgical History[5] Allergy(ies): Allergies[6] Family History: Family History[7] Social History: Social History[8] Portions of the information within this encounter were entered using an electronic dictation system. Best attempts were made to edit/proofread the information prior to note completion. Despite the review of information, some errors may remain. If there are questions related to the information contained within the note please contact the signing physician directly. I spent 35 minutes with the pt which involved coordination of care, medical evaluation, review of records, and/or counseling of the pt regarding his/her condition/disease state/prognosis on the date of this note. [1] acetaminophen, 1,000 mg, Oral, q8h aspirin, 81 mg, Oral, Daily atorvastatin, 80 mg, Oral, Nightly chlorhexidine, , Topical, Daily enoxaparin, 40 mg, SubCUTAneous, Daily insulin lispro, 0-6 Units, SubCUTAneous, TID WC Lidocaine, 1 patch, Topical, Daily melatonin, 5 mg, Oral, Nightly mupirocin, , Nasal, BID pantoprazole, 40 mg, Oral, qAM AC polyethylene glycol (PEG) 3350, 17 g, Oral, Daily senna-docusate sodium, 2 tablet, Oral, Nightly sodium chloride 0.9%, 5-40 mL, IntraCATHeter, q8h warfarin, 3 mg, Oral, Once [2] amiodarone, 1 mg/min, Last Rate: 1 mg/min (04/30/25 0821) lactated ringers, 250 mL nitroprusside, 0.1-3 mcg/kg/min norepinephrine, 0.01-0.2 mcg/kg/min, Last Rate: Stopped (04/29/25 0500) [3] PRN medications: albumin human, calcium gluconate, dextrose, dextrose, glucagon (rDNA), glucose, ipratropium-albuterol, lactated ringers, magnesium hydroxide, magnesium sulfate OR magnesium sulfate, morphine sulfate OR morphine sulfate, naloxone, nitroprusside, norepinephrine, ondansetron ODT OR ondansetron, oxyCODONE OR oxyCODONE, potassium chloride OR potassium chloride OR potassium chloride, potassium chloride CR, sodium chloride 0.9% [4] Past Medical History: Diagnosis Date Heart valve disorder Hyperlipidemia Hypertension Stroke (HCC) no residual [5] Past Surgical History: Procedure Laterality Date ARM FRACTURE SURGERY (HISTORICAL) Bilateral plates inserted both arms CARDIAC CATHETERIZATION N/A 04/06/2025 Performed by Shilpa Jackson MD at [facility] Cardiac Cath/EP Lab [6] Allergies Allergen Reactions Hydrocodone hallucinations [7] No family history on file. [8] Social History Tobacco Use Smoking status: Never Smokeless tobacco: Never Vaping Use Vaping status: Never Used Substance Use Topics Alcohol use: Not Currently Drug use: Not Currently [facility] [place] [facility] Anticoagulation Management Service (NADIR) Inpatient Warfarin Consult HPI: Bright Keen is a 55 y.o. male admitted on 04/28/2025 for Aortic stenosis, severe. Medical History[1] Patient is newly referred to the [facility] clinic for warfarin management. Pt was referred by KISHA Pitt CNP. Pt is on warfarin for mechanical AVR and has a goal INR 2.0 - 3.0. Duration of therapy= lifelong. Reason for warfarin instead of DOAC: mechanical valve PCP: Asher Jesus PA-C S/sx of bleeding= none currently Interacting medications= ASA, amiodarone, Lovenox 40mg Labs: Recent Labs 04/28/25 1322 04/29/25 0224 04/30/25 0313 HGB 13.0 13.1 12.4* 11.6* HCT 39.5* 38.6* 35.7* PLT 146 145 110* Recent Labs 04/30/25 0313 INR 1.0 Date INR Dose 04/30 1.0 3mg 04/29 1.1 3mg Assessment/Plan: 1. INR is subtherapeutic due to new start warfarin. Warfarin 3mg started yesterday, wouldn't anticipate increase in INR yet so will continue 3mg today. 2. Will monitor for s/s of bleeding and drug interactions and adjust dose accordingly. 3. Will facilitate NADIR follow-up upon discharge. 4. Provided warfarin education. Completed preop education with patient last week. Will review carlos points with patient at time of discharge. Jenae Delcid RPh, PharmD NADIR Consult Service is available daily [phone] via [employer] Secure Chat. If no response, please page [phone]. [1] Past Medical History: Diagnosis Date Heart valve disorder Hyperlipidemia Hypertension Stroke (HCC) no residual Images from the original note were not included. Cardiothoracic Surgery/CCM Progress Note PATIENT NAME: Bright Keen DATE: 04/30/25 HPI: 55 y.o. male w pmHx of severe , CHF, HTN and recent ischemic stroke was seen in OP valve clinic for surgical evaluation. Of note patient was admitted to [facility] on 03/04/25 for stroke like symptoms, with MRI revealing four tiny acute embolic infarcts in the right frontal and occipital lobes, and left parietal lobe. Pt was treated with TNK and had drastic improvement in symptoms. During further workup, a transthoracic echo was obtained, which demonstrated EF 55%, LA and RA moderately dilated, and severe aortic valve stenosis concerning for potential etiology of cryptogenic stroke, peak/mean gradients 84/53 mm Hg, LITO 1.0 cm^2. He consent and was taken to the operating room for AVR and PFO repair with Dr. Ulloa on 04/28/25 Surgery/Procedure: 04/28/25: s/p AVR (#25 [facility]) PFO repair and KATY with Dr. Ulloa Interval History: 04/30/25, POD# 2: VSS afib rate control this morning. Asymptomatic with it. On 1LNC. Up to chair bedside. Still with pain -- incisional and ct related. Drop in Na - no associated symptoms - monitor Review of Systems Constitutional: Negative for diaphoresis, fatigue and fever. Respiratory: Negative for cough, shortness of breath and wheezing. Cardiovascular: Positive for chest pain. Negative for palpitations and leg swelling. Gastrointestinal: Negative for abdominal distention, constipation and diarrhea. Skin: Negative for color change, pallor and rash. Objective: CT output cc/24hrs: 70 UO cc/24hrs: 200 + undocumented voids Last BM Date: 04/27/25 Vitals: BP: 121/77, MAP (mmHg): 91, BP Method: Automatic Heart Rate: 81 Resp: 15 Temp: 36.4 C (97.5 F), Temp Source: Temporal BMI (Calculated): 38.01 Pacer Wires: v wires CXR: BMP: Recent Labs 04/28/25 1322 04/29/25 0224 04/30/25 0313 NA 140 137 128* K 3.5 5.0 4.6 CL 113* 110* 101 CO2 19* 20* 24 BUN 15 17 16 CREATININE 0.81 0.89 0.76 CALCIUM 7.5* 8.0* 8.6 MG 3.5* 2.4 2.0 CBC: Recent Labs 04/28/25 1322 04/29/25 0224 04/30/25 0313 WBC 24.3* 13.5* 11.4* HGB 13.0 13.1 12.4* 11.6* HCT 39.5* 38.6* 35.7* PLT 146 145 110* MCV 83.9 85.0 85.4 RDW 13.0 13.5 13.5 INR: Recent Labs 04/28/25 1322 04/29/25 0224 04/30/25 0313 INR 1.2* 1.1 1.0 Physical Exam Cardiovascular: Rate and Rhythm: Normal rate. Rhythm irregular. Heart sounds: Normal heart sounds. No murmur heard. No friction rub. Comments: [facility] valve heard Pulmonary: Effort: Pulmonary effort is normal. Skin: General: Skin is warm and dry. Capillary Refill: Capillary refill takes less than 2 seconds. Findings: Bruising and ecchymosis present. Comments: Surgical Incisions: well approximate; clean dry with no drainage noted. Surrounding skin no redness, warmth, or signs of infection noted. Neurological: Mental Status: He is alert. Psychiatric: Behavior: Behavior is cooperative. Assessment: Severe s/p AVR [facility] CHF Post operative Pulm Management: Normal Post-operative Course Post-operative Atrial Fibrillation: [x]Yes [] No Plan: Patient Status: Telemetry Medications: Continue ASA, statin Bolus and gtt amio Nadir for coumadin life long therapy- 2-3 -lovenox subq per surgeon GI prophy: PO protonix DVT prophy: Lovenox SubQ + coumadin Bowel: senna/miralax Interventions: Pulmonary hygiene: IS and Acapella Yari Boyle Lines/Drains: -CVC: Triple lumen RIJ -Chest tubes: to water seal - remove today Restraints: []Yes [x] No Consults: Endocrine - insulin management D/c recs: TBD Therapies: PT: home with assist OT: will need evaluated Disposition: TBD - progressive care Tele Status A total of 16 minutes were spent between the akfq-py-tqqi encounter, physical exam, reviewing the medical history, coordinating the patient's care, counseling/educating the patient, ordering medications/test/procedures, interpreting results and documenting clinical information in the patients electronic health record on the day of the encounter. The patient was seen and examined Patient discussed and plan of day developed from multidisciplinary rounds between Cardiothoracic Surgery (Cardiothoracic Surgeon, DEJA) and Critical Care Attending Cardiac Core Medications: ASA and Statin EF: 55% Blood Conservation: None noted in post-operative period Project Administrative Assistant: Dr. Jackson Cosigned by Jadiel Wellington DO at 04/30/2025 1:08 PM EDT Images from the original note were not included. PHYSICAL THERAPY [facility] Initial Evaluation Name/MRN: Bright Keen ([id number]) Evaluation Date: 04/29/2025 Date of : 1970 Admission Date: 04/28/2025 5:16 AM Age: 55 y.o. Room/Bed: T1-111/T1111 A Discharge Recommendation: Home with assist PRN, Outpatient PT (outpatient cardiac rehab) Other: TBD Assessment IMPRESSION: Patient is a 55 yo admitted due to aortic valve stenosis s/p replacement on 04/28/25. Patient is most limited by sternum pain. Patient required mod A for sit <> supine and CGA for sit <> stand transfers. Patient ambulated 30 feet using Nezzie with CGA. Patient will benefit from acute PT services to improve independence with mobility. Anticipate return home with assist PRN and outpatient cardiac rehab. Admitting Diagnosis: aortic valve stenosis s/p replacement on 04/28/25 Prognosis: good Performance Deficits /Impairments: Increased Pain, Decreased Functional Mobility, Decreased ADL status, Decreased Strength, Decreased Endurance, Decreased Balance, and Decreased High Level IADLs Decision Making: Medium Complexity Subjective RN cleared patient for PT eval. Patient awake in chair, pleasant and agreeable to therapy. Reports I think I'm ready to walk. Pain: sternum Past Medical History: Medical History[1] Past Surgical History: Surgical History[2] Admission Diagnosis: Patient Active Problem List Diagnosis Date Noted Aortic stenosis, severe 04/28/2025 Severe aortic stenosis 03/30/2025 Primary hypertension 03/30/2025 Other hyperlipidemia 03/30/2025 Stroke-like symptoms 03/04/2025 Nonrheumatic aortic valve stenosis 03/30/2025 Medical Precautions: No active isolations Proper PPE donned/doffed in accordance with facility standards. Fall Risk: [place]re Fall Risk Score: 20 (Low Risk) Precautions/Restrictions: Sternal Precautions: No lifting greater than 10 lbs. Ok for modified UE precautions using Keep Your Move in the Tube technique Lines/Drains/Airways: tele, continuous pulse ox, chest tube, CVC R IJ Family/Caregiver Present: spouse Overall Cognitive Status: WNL Overall Orientation Status: Oriented x4 Social/Functional History Patient admitted from home. Lives With: Family Type of Home: single family home Home Layout: Two Level Home and 1/2 Bath on Main Floor Home Access: Level Entry Bathroom Shower/Tub: Tub/Shower Combo Toilet: Standard Home Equipment: none Homemaking Responsibilities: Independent Receives Help From: Family Active Community Director: Prior Level of Function Prior Level of ADL Function: Independent Prior Level of Mobility: Independent; Device: None Prior Level of Transfers: Independent Objective Bed Mobility Sit to supine: Mod Assist Transfers/Mobility Sit to stand: Contact Guard Stand to sit: Contact Guard From recliner, rocking technique, cues needed for sternal precautions Device(s) used: Nezzie Ambulation Assistive device(s) used: Nezzie Assist level: Contact Guard Distance (ft): 30 Quality of gait: slow scotty, steady gait, good control of Nezzi. Cues given throughout for pursed-lip breathing. O2 sats 89-92% with gaits, quickly returns to 92-94% with standing rest break and pursed-lip breathing. Vision: wears glasses for reading and and are being used during the eval Other exercises Other exercises?: Yes Other exercises 1: IS x6 reps, 1500-2000ml, good technique Outcome Measures AM-PAC How much HELP from another person do you currently need Turning from your back to your side while in a flat bed without using bedrails?: A Little Moving from lying on your back to sitting on the side of a flat bed without using bedrails?: A Little Moving to and from a bed to a chair (including a wheelchair)?: A Little Standing up from a chair using your arms (wheelchair or bedside chair)?: A Little Walking in a hospital room?: A Little Stair climbing assessed?: No AM-PAC Inpatient Mobility Raw Score (No Stairs) : 15 JH-HLM -HLM Score: Walked 25 ft or more (i.e. walked outside of room) Plan Pt would benefit from skilled acute PT services to address Strengthening, Gait Training, Balance Training, Self-Care/ADL Training, Functional Mobility Training, Endurance Training, Safety Education and Training, Pain Management, Stair Training, Equipment Evaluation/Education, Neuromuscular Re-Education Training, and Patient/Caregiver Training. Frequency: 5x/week for 4 weeks Barriers: Pain, Impaired balance, Lower extremity weakness, Decreased endurance, and Stairs at home Safety/Education Safety Safety Devices in place: All fall risk precautions in place, call light within reach, left in bed, nurse notified, and no alarms engaged upon entry Restraints: No Education Education Given To: patient Education Provided: PT Role, PT Goals, Plan of Care, Precautions, Transfer Training, Benefits of Increasing Activity, Breathing Techniques, and splinted cough Education Method: Verbal Barriers to Learning: None Education Outcome: Verbalized Understanding Goals Patient Stated Goal: to get better Encounter Problems Encounter Problems (Active) Cardiac Patient will perform bed mobility with modified independence in order to improve independence and prepare for out of bed mobility. Start: 04/29/25 Expected End: 05/27/25 Patient will complete sit to stand transfer with modified independence in order to improve safety and prepare for out of bed mobility. Start: 04/29/25 Expected End: 05/27/25 Patient will ambulate 350 feet or ambulate 5 minutes with modified independence with RPE of 14 or lower. Start: 04/29/25 Expected End: 05/27/25 Patient will ascend and descend 4 # stairs with supervision rail for balance only. Start: 04/29/25 Expected End: 05/27/25 Patient will be independent with P&C exercises. Start: 04/29/25 Expected End: 05/27/25 Patient will be independent with managing secretions and home walking program. Start: 04/29/25 Expected End: 05/27/25 Pain - Adult Therapy Time Individual Co-Treatment Co-Evaluation Time In 1131 Time Out 1200 Minutes 29 Timed Code Treatment Minutes: 8 Minutes (gait) Mariam Jacobs PT Patient's Physical Therapy Plan of Care supervision is transferred to a [facility] Physical Therapist. Goals and/or treatment plan was established in collaboration with patient/family/other representatives. [1] Past Medical History: Diagnosis Date Heart valve disorder Hyperlipidemia Hypertension Stroke (HCC) no residual [2] Past Surgical History: Procedure Laterality Date ARM FRACTURE SURGERY (HISTORICAL) Bilateral plates inserted both arms CARDIAC CATHETERIZATION N/A 04/06/2025 Performed by Shilpa Jackson MD at [facility] Cardiac Cath/EP Lab Department of Internal Medicine Division of Endocrinology, Diabetes, & Metabolism Endocrinology Note Patient Name: Bright Keen : 1970 AGE: 55 y.o. Room/Bed: [facility]/[address] Admission Date: 04/28/2025 Visit Date: 04/29/2025 Reason for Endocrine Consult: post heart Provider/Team Requesting Consult: CTS PCP: Asher Jesus PA-C Outpt Geodetic Surveyor: No ASSESSMENT: Stress hyperglycemia AVR HLD/HTN Obesity Body mass index is 38.01 kg/m . PLAN: Stop insulin drip Start Humalog low sliding scale only ICU goal <180 GMF goal <150 POCT BG ACHS Hypoglycemia management per protocol Carb controlled diet ANTICIPATED ENDOCRINE HOME GOING RECOMMENDATIONS: Optimized for Discharge from Endocrine standpoint: yes Home Going Endocrine Rx Recommendations-- NONE Outpt Follow Up-- PCP SUBJECTIVE/HPI: CHIEF COMPLAINT: No chief complaint on file. S/p AVR BGL below- stable Insulin gtt on 0.5/hr No pressors on Extubated up in chair awake alert Vss 02 nc He denies any history of diabetes or thyroid disease Has only had juice and Jell-O so far for breakfast this morning Denies nausea vomiting abdominal pain Spoke with family in room and nursing Type of DM: NA Onset of DM: NA Home DM Medication Regimen: NA DM control (last A1c/glucose data): Lab Results Component Value Date HGBA1C 5.4 04/21/2025 Glucose Date/Time Value Ref Range Status 04/29/2025 09:21 AM 119 (H) 70 - 100 mg/dL Final 04/29/2025 08:42 AM 136 (H) 70 - 100 mg/dL Final 04/29/2025 07:11 AM 127 (H) 70 - 100 mg/dL Final 04/29/2025 06:09 AM 106 (H) 70 - 100 mg/dL Final 04/29/2025 05:00 AM 130 (H) 70 - 100 mg/dL Final 04/29/2025 04:16 AM 118 (H) 70 - 100 mg/dL Final Review of Systems ROS negative except for those mentioned in HPI. OBJECTIVE: Vitals: 04/29/25 0430 04/29/25 0445 04/29/25 0500 04/29/25 0547 BP: BP Location: Patient Position: Pulse: 79 84 82 Resp: 14 19 16 Temp: TempSrc: SpO2: 97% 96% 95% Weight: 264 lb 14.4 oz (120 kg) Height: Physical Exam Vitals and nursing note reviewed. Constitutional: General: He is awake. He is not in acute distress. Appearance: He is ill-appearing. He is not toxic-appearing. Interventions: Nasal cannula in place. HENT: Head: Normocephalic. Mouth/Throat: Mouth: Mucous membranes are moist. Cardiovascular: Rate and Rhythm: Normal rate. Pulmonary: Effort: Pulmonary effort is normal. No respiratory distress. Abdominal: Tenderness: There is no guarding. Skin: General: Skin is warm and dry. Coloration: Skin is pale. Comments: Intact incision Neurological: Mental Status: He is alert and oriented to person, place, and time. Psychiatric: Mood and Affect: Mood normal. 24 hour intake/output: Intake/Output Summary (Last 24 hours) at 04/29/2025 0936 Last data filed at 04/29/2025 0600 Gross per 24 hour Intake 5048 ml Output 2028 ml Net 3020 ml Diet: Adult diet Regular; Low Sodium (2 gm) Medications (as per EMR): HomeMeds: Current Outpatient Medications Medication Instructions aspirin 81 mg, Oral, Daily atorvastatin (LIPITOR) 40 mg, Oral, Daily chlorhexidine (Peridex) 0.12 % solution 15 mL, Once mupirocin (Bactroban) 2 % ointment Apply liberal amount per nostril the night before surgery and then again the morning of surgery Scheduled Meds:Scheduled Meds[1] Continuous Infusions:Continuous Meds[2] PRN Meds:PRN Meds[3] Diagnostic Workup: I reviewed pertinent Laboratory results, Radiographic results, and Other Clinical Notes at the time of today's encounter. Labs: No components found for: LABA1C No components found for: EAG Lab Results Component Value Date NA 137 04/29/2025 K 5.0 04/29/2025 CL 110 (H) 04/29/2025 CO2 20 (L) 04/29/2025 BUN 17 04/29/2025 CREATININE 0.89 04/29/2025 GLUCOSE 131 (H) 04/29/2025 CALCIUM 8.0 (L) 04/29/2025 Lab Results Component Value Date CHOL 177 03/05/2025 Lab Results Component Value Date TRIG 44 03/05/2025 Lab Results Component Value Date HDL 35 (L) 03/05/2025 Lab Results Component Value Date LDLCALC 133 (H) 03/05/2025 No results found for: VLDL Lab Results Component Value Date CHOLHDLRATIO 5 03/05/2025 No results found for: [id number] No results found for: TSH, L2LJFHQ, L0ZJCHS, THYROIDAB Radiology reportsas per the Radiologist Radiology: ECG 12 lead Result Date: 04/28/2025 Sinus rhythm Anterior infarct, old Prolonged QT interval POCT glucose meter Result Date: 04/28/2025 Performed by: [facility], [address] [place] [address] CLIA ID: [id number] History/Other: Past Medical History: Medical History[4] Past Surgical History: Surgical History[5] Allergy(ies): Allergies[6] Family History: Family History[7] Social History: Social History[8] Portions of the information within this encounter were entered using an electronic dictation system. Best attempts were made to edit/proofread the information prior to note completion. Despite the review of information, some errors may remain. If there are questions related to the information contained within the note please contact the signing physician directly. I spent 35 minutes with the pt which involved coordination of care, medical evaluation, review of records, and/or counseling of the pt regarding his/her condition/disease state/prognosis on the date of this note. [1] acetaminophen, 1,000 mg, Oral, q8h aspirin, 81 mg, Oral, Daily atorvastatin, 80 mg, Oral, Nightly ceFAZolin, 2,000 mg, IntraVENous, q8h chlorhexidine, , Topical, Daily Lidocaine, 1 patch, Topical, Daily mupirocin, , Nasal, BID [START ON 04/30/2025] pantoprazole, 40 mg, Oral, qAM AC polyethylene glycol (PEG) 3350, 17 g, Oral, Daily senna-docusate sodium, 2 tablet, Oral, Nightly sodium chloride 0.9%, 5-40 mL, IntraCATHeter, q8h warfarin, 3 mg, Oral, Once [2] insulin regular, 0.5-50 Units/hr, Last Rate: 1 Units/hr (04/29/25 0845) lactated ringers, 250 mL nitroprusside, 0.1-3 mcg/kg/min norepinephrine, 0.01-0.2 mcg/kg/min, Last Rate: Stopped (04/29/25 0500) sodium chloride, 20 mL/hr, Last Rate: 20 mL/hr (04/28/25 1315) [3] PRN medications: albumin human, calcium gluconate, dextrose, dextrose, glucagon (rDNA), glucose, ipratropium-albuterol, lactated ringers, magnesium hydroxide, magnesium sulfate OR magnesium sulfate, melatonin, morphine sulfate OR morphine sulfate, naloxone, nitroprusside, norepinephrine, ondansetron ODT OR ondansetron, oxyCODONE OR oxyCODONE, potassium chloride OR potassium chloride OR potassium chloride, potassium chloride CR, sodium chloride 0.9% [4] Past Medical History: Diagnosis Date Heart valve disorder Hyperlipidemia Hypertension Stroke (HCC) no residual [5] Past Surgical History: Procedure Laterality Date ARM FRACTURE SURGERY (HISTORICAL) Bilateral plates inserted both arms CARDIAC CATHETERIZATION N/A 04/06/2025 Performed by Shilpa Jackson MD at [facility] Cardiac Cath/EP Lab [6] Allergies Allergen Reactions Hydrocodone hallucinations [7] No family history on file. [8] Social History Tobacco Use Smoking status: Never Smokeless tobacco: Never Vaping Use Vaping status: Never Used Substance Use Topics Alcohol use: Not Currently Drug use: Not Currently [facility] [place] [facility] Anticoagulation Management Service (NADIR) Inpatient Warfarin Consult HPI: Bright Keen is a 55 y.o. male admitted on 04/28/2025 for Aortic stenosis, severe. Medical History[1] Patient is newly referred to the [facility] clinic for warfarin management. Pt was referred by KISHA Pitt CNP. Pt is on warfarin for mechanical AVR and has a goal INR 2.0 - 3.0. Duration of therapy= lifelong. Reason for warfarin instead of DOAC: mechanical valve PCP: Asher Jesus PA-C S/sx of bleeding= none currently Interacting medications= ASA Labs: Recent Labs 04/28/25 1322 04/29/25 0224 HGB 13.0 13.1 12.4* HCT 39.5* 38.6* PLT 146 145 Recent Labs 04/29/25 0224 INR 1.1 Date INR Dose 04/29 1.1 3mg Assessment/Plan: 1. INR is subtherapeutic due to new start warfarin. Warfarin 3mg ordered to start today per CTS team. Discussed with CTS team, no heparin bridge today per Dr. Ulloa. 2. Will monitor for s/s of bleeding and drug interactions and adjust dose accordingly. 3. Will facilitate [facility] follow-up upon discharge. 4. Provided warfarin education. Completed preop education with patient last week. Will review carlos points with patient at time of discharge. Thank you for this consult Jenae Delcid RPh, PharmD [facility] Consult Service is available daily [phone] via [employer] Secure Chat. If no response, please page [phone]. [1] Past Medical History: Diagnosis Date Heart valve disorder Hyperlipidemia Hypertension Stroke (HCC) no residual Images from the original note were not included. Cardiothoracic Surgery/CCM Progress Note PATIENT NAME: Bright Keen DATE: 04/29/25 HPI: 55 y.o. male w pmHx of severe , CHF, HTN and recent ischemic stroke was seen in OP valve clinic for surgical evaluation. Of note patient was admitted to [facility] on 03/04/25 for stroke like symptoms, with MRI revealing four tiny acute embolic infarcts in the right frontal and occipital lobes, and left parietal lobe. Pt was treated with TNK and had drastic improvement in symptoms. During further workup, a transthoracic echo was obtained, which demonstrated EF 55%, LA and RA moderately dilated, and severe aortic valve stenosis concerning for potential etiology of cryptogenic stroke, peak/mean gradients 84/53 mm Hg, LITO 1.0 cm^2. He consent and was taken to the operating room for AVR and PFO repair with Dr. Ulloa on 04/28/25 Surgery/Procedure: 04/28/25: s/p AVR (#25 [facility]) PFO repair and KATY with Dr. Ulloa Interval History: 04/29/25, POD# 1: BP 133-162/83-96 with HR in the 90's. Patient off all vasoactives. No additional fluid challenge. Patient up in chair this morning with assist of nursing. He does report not sleeping overnight. He received a one-time dose of Ativan 0.5 mg with no relief. Chest pain has been as low as 6/10 overnight. He is taking prn morphone mg IVP and oxycodone 10 mg po. Spouse present. Review of Systems Constitutional: Negative for diaphoresis, fatigue and fever. Respiratory: Negative for cough, shortness of breath and wheezing. Cardiovascular: Positive for chest pain. Negative for palpitations and leg swelling. Gastrointestinal: Negative for abdominal distention, constipation and diarrhea. Skin: Negative for color change, pallor and rash. Objective: CT output cc/24hrs: 368 ml UO cc/24hrs: 1360 ml Last BM Date: 04/27/25 Vitals: BP: 135/81, MAP (mmHg): 84, BP Method: Arterial line Heart Rate: 82 Resp: 16 Temp: 36.2 C (97.2 F), Temp Source: Temporal BMI (Calculated): 38.01 Pacer Wires: v wires CXR: 04/29/2025 BMP: Recent Labs 04/28/25 1322 04/29/25 0224 NA 140 137 K 3.5 5.0 CL 113* 110* CO2 19* 20* BUN 15 17 CREATININE 0.81 0.89 CALCIUM 7.5* 8.0* MG 3.5* 2.4 CBC: Recent Labs 04/28/25 1322 04/29/25 0224 WBC 24.3* 13.5* HGB 13.0 13.1 12.4* HCT 39.5* 38.6* PLT 146 145 MCV 83.9 85.0 RDW 13.0 13.5 INR: Recent Labs 04/28/25 1322 04/29/25 0224 INR 1.2* 1.1 Physical Exam Vitals and nursing note reviewed. Constitutional: Interventions: Nasal cannula in place. Neck: Vascular: No JVD. Trachea: Trachea normal. Cardiovascular: Rate and Rhythm: Normal rate. Pulses: Normal pulses. Radial pulses are 2+ on the right side and 2+ on the left side. Heart sounds: Normal heart sounds, S1 normal and S2 normal. Arteriovenous access: Left arteriovenous access is present. Comments: Mechanical valve heard Pulmonary: Effort: Pulmonary effort is normal. Breath sounds: Normal breath sounds. Abdominal: General: Bowel sounds are normal. Palpations: Abdomen is soft. Genitourinary: Comments: Matias catheter to straight drain Musculoskeletal: Right lower leg: No edema. Left lower leg: No edema. Skin: General: Skin is warm and dry. Capillary Refill: Capillary refill takes 2 to 3 seconds. Findings: Bruising and ecchymosis present. Comments: Surgical Incisions: edges well approximated; clean, dry, with no drainage noted. Surrounding skin no redness, warmth, or signs of infection noted. Neurological: Mental Status: He is alert. Psychiatric: Behavior: Behavior is cooperative. Assessment: Severe [facility] CHF Post operative Pulm Management: Normal Post-operative Course Post-operative Atrial Fibrillation: []Yes [x] No Plan: Patient Status: ICU Medications: Start ASA, statin -may consider BB if ectopy/hypertensive Consult to Nadir for coumadin life long therapy- 2-3 -Start Coumadin 3 mg today GI prophy: PO protonix DVT prophy: Coumadin 3 mg Bowel: senna/miralax Interventions: Advance diet Pulmonary hygiene: IS and Acapella TEDs, SCDs Lines/Drains: -CVC: Triple lumen RIJ -Arterial line: discontinue today -Matias: remove today -Chest tubes: to water seal Restraints: []Yes [x] No Consults: Cardiac Rehab Therapies: PT: will need evaluated OT: will need evaluated Disposition: TBD - transition to progressive care later today Critical Care time spent 19 minutes. The time involved in the performance of this care was exclusive of separately billable procedures, teaching time and treating other patients. The time was spent personally by myself for the following activities: examination of the patient, ordering and/or performing treatment, reviewing the laboratory and radiographic studies, and if applicable, ventilator management and blood gas interpretation. Patient discussed and plan of day developed from multidisciplinary rounds between Cardiothoracic Surgery (Cardiothoracic Surgeon, DEJA) and Critical Care Attending Cardiac Core Medications: ASA and Statin EF: 55% Blood Conservation: None noted in post-operative period Project Administrative Assistant: Dr. Jackson Cosigned by Jadiel Wellington DO at 04/29/2025 2:10 PM EDT Associated attestation - Jadiel Wellington DO - 04/29/2025 2:10 PM EDT I have reviewed and agree with DEJA note, my plan/corrections are below Patient is SP Mechanical AVR on 04/28 Post op course uncomplicated Neuro: -GCS 15 - Pain control adequate - poor sleep last night, treated with ativan. Melatonin now added, will make standing order Cardiac: - hemodynamics at goal with no vasoactives. Cap refill is brisk - Maintain MAP >65 - post sternotomy precautions Pulm: - Chest tubes to water seal - Extubated to nasal o2 04/28 GI: - Diet PO - Ppx : - Matias to remove today - Electrolytes acceptable - Fluid balance- +3.2L, observe for now ID: - Observe off abx - afebrile Endo: - Insulin sliding scale - No indication for steroids Heme: - warfarin starting for AVR - hbg/plt stable Critical care time thus far today 35 minutes [facility] Respiratory Care Department Progress Note Spontaneous Awakening Trial Wean Screen Safety Screen Spontaneous Breathing Trial (SBT - RT) : Proceed with SBT - No exclusion criteria met (04/28/25 1442) Spontaneous Breathing Trial Weaning Start Time: 1440 (04/28/25 1442) Weaning Tidal Volume: 586 mL (04/28/25 1442) Weaning Respiratory Rate: 16 (04/28/25 1442) Spontaneous Minute Volume (MV): 10.7 (04/28/25 1442) Total RSBI: 27.3 (04/28/25 144) Spontaneous Breathing Trial (SBT - RT) Outcome: SBT Passed (PS 5/8) (04/28/25 1442) Vent Settings Vent Mode: Spontaneous (04/28/25 1500) Mandatory Type: VC+ (04/28/25 1334) Resp Rate (Set): 14 (04/28/25 1334) Vt (Set, mL): 450 mL (04/28/25 1334) FiO2 (%): 40 % (04/28/25 1500) PEEP/CPAP (cm H2O): 8 cm H20 (04/28/25 1442) Inspiratory Time (sec): 0.9 sec (04/28/25 1334) Vitals Heart Rate: 72 (04/28/25 1500) Resp: 22 (04/28/25 1500) SpO2: 100 % (04/28/25 1500) Suctioning/Secretions ABG results Recent Labs 04/28/25 1321 04/28/25 1322 PHART 7.330* -- [id number] 39.3 -- PO2ART 163.7* -- [id number] 20.3* -- [id number] Ventilator Ventilator Does this patient meet criteria for termination of mechanical ventilation Yes- Notified physician below Name of physician notified via secure chat or in person : zachariah wellington (NA if patient did not meet criteria) Comments: Thank you for involving Respiratory in the care of this patient, documented in this encounter [facility] 05-03-2025 Note Discharge Summary: C ardiothoracic Surgery Bright Keen, 55 y.o., 1970 ADMIT DATE: 04/28/2025 DISCHARGE DATE: 05/03/2025 VISIT STATUS: Admission CODE STATUS: Full Code DISCHARGING SURGEON: Patricia Ulloa DO, Office Number: [phone] DISCHARGE DIAGNOSES: Severe s/p AVR [facility] CHF Post operative Pulm Management: Normal Post-operative Course Post-operative Atrial Fibrillation: [x]Yes [] No BMI CLASSIFICATION:Obese (BMI 30.0-39.9) TREATMENT TEAM: Primary Care Physician: Asher Jesus PA-C Project Administrative Assistant: Dr. Jackson SURGERY: s/p AVR (#25 [facility]) PFO repair and KATY with Dr. Ulloa on 04/28/25 HOSPITAL COURSE: 55 y.o. male w pmHx of severe , CHF, HTN and recent ischemic stroke was seen in OP valve clinic for surgical evaluation. Of note patient was admitted to [facility] on 03/04/25 for stroke like symptoms, with MRI revealing four tiny acute embolic infarcts in the right frontal and occipital lobes, and left parietal lobe. Pt was treated with TNK and had drastic improvement in symptoms. During further workup, a transthoracic echo was obtained, which demonstrated EF 55%, LA and RA moderately dilated, and severe aortic valve stenosis concerning for potential etiology of cryptogenic stroke, peak/mean gradients 84/53 mm Hg, LITO 1.0 cm^2. He consent and was taken to the operating room for AVR and PFO repair with Dr. Ulloa on 04/28/25. Postoperative course patient developed rate controlled afib - no prior history. He was loaded with amiodarone and due to [facility] valve d/c'ed on OAC. Once medically optimized and hemodynamically stable. He was discharged home. Patient was not able to receive home care. Coordinated INR draws with Nadir. Will need ECHO in 3 months to assess valve. He was discharged home on POD #5 on 05/03/25. Ok with Dr. Ulloa even though INR 1.9. DIAGNOSTICS: BP 142/86 (BP Location: Right arm, Patient Position: Sitting) Pulse 86 Temp 36.6 ?C (97.8 ?F) (Temporal) Resp 16 Ht 5' 10 (1.778 m) Wt 259 lb 12.8 oz (118 kg) SpO2 97% BMI 37.28 kg/m? Recent Labs 05/01/25 0320 05/02/25 0529 05/03/25 0434 CREATININE 0.73 0.72 0.82 HGB 11.3* 11.2* 11.6* PLT 122* 181 240 WBC 10.3 8.1 7.2 INR 1.0 1.5* 1.9* NA 133* 135* 138 K 4.4 3.7 3.6 DISCHARGE MEDICATIONS: Medication List START taking these medications acetaminophen 500 MG tablet Commonly known as: Tylenol Take 2 tablets (1,000 mg) by mouth every 8 hours as needed for moderate pain (4-6) for up to 10 days. amiodarone 200 MG tablet Commonly known as: Pacerone Take 2 tablets (400 mg) by mouth 2 times daily for 14 days, THEN 1 tablet (200 mg) daily. Start taking on: May 03, 2025 furosemide 40 MG tablet Commonly known as: Lasix Take 1 tablet (40 mg) by mouth daily for 5 days. oxyCODONE 5 MG immediate release tablet Commonly known as: Roxicodone Take 1 tablet (5 mg) by mouth every 6 hours as needed for severe pain (7-10) (acute post surgical pain) for up to 5 days. potassium chloride CR 20 MEQ ER tablet Commonly known as: Klor-Con M20 Take 1 tablet (20 mEq) by mouth daily for 5 days. Do not crush or chew. warfarin 3 MG tablet Commonly known as: Coumadin Take as directed per After Visit Summary. CHANGE how you take these medications atorvastatin 40 MG tablet Commonly known as: Lipitor What changed: how much to take CONTINUE taking these medications aspirin 81 MG chewable tablet Chew 1 tablet (81 mg) daily. Do not start before March 07, 2025. STOP taking these medications chlorhexidine 0.12 % solution Commonly known as: Peridex mupirocin 2 % ointment Commonly known as: Bactroban Where to Get Your Medications These medications were sent to [facility] [address] [place] [address] Hours: Saturday to Saturday 10 am to 6 pm amiodarone 200 MG tablet furosemide 40 MG tablet oxyCODONE 5 MG immediate release tablet potassium chloride CR 20 MEQ ER tablet warfarin 3 MG tablet You can get these medications from any pharmacy You don't need a prescription for these medications acetaminophen 500 MG tablet *The patient's OARRS report was obtained and reviewed.* I explained to Bright Keen that narcotic pain medications have addictive potential and should only be taken for acute post operative surgical pain. I also explained that narcotic/opioid medication should not be taken to help sleep as they are only intended to treat pain. In addition the patient needs to avoid driving or taking other narcotics, anxiolytics or consuming alcohol or using street drugs while they are taking the narcotic because serious side effects including can occur. I discussed the side effects that can occur when taking a narcotic alone including but not limited to: nausea, vomiting, constipation and drowsiness.I told the patient that if they have any reactions to the medication or any percieved problems with the medication, they are to stop th (more content not included)... [facility] 05-03-2025 Hospital Discharg e instructions Jacekabdulaziz Alvarado, EHS ENGINEER - PARKING LOT ATTENDANT - 05/03/2025 10:02 AM EDT Images from the original note were not included. [facility] Group: Cardiothoracic Surgery [address] [place] [address] #[phone] Notify us if the following occur - Increased tenderness, redness, or swelling of your incisions. - Any drainage from the chest incision (clear or pink drainage from the leg incision or chest tube site is common). - Angina symptoms like those you had before surgery - Sharp pain in chest, neck or shoulder that is worse when taking a deep breath - Persistent fever greater than 100 degrees F or 38 degrees C - Flu-like symptoms-chills, aches, fever, increased fatigue - Heart rate faster than 150 beats/minute with shortness of breath or new irregular heart rate. - Any unusual bleeding - Shortness of breath not relieved by rest - Weight gain of three pounds in one day or five pounds over one week Activity Instructions - Sternal Precautions for 6 weeks - Do not lift, push, or pull anything heavier than 10 pounds for 6 weeks (a gallon of milk weighs 8 pounds). - Do not drive until you have been given permission by your surgeon/provider and until you are off narcotic/opioid pain medication - It is ok to sleep on your side if you prop pillows to support your back. Do not sleep on your stomach. - Walk at least 4 times a day, start with 5 minute intervals, increase minutes walked each day. Do not walk on a treadmill - Balance rest and activity during your recovery - Use the stairs, but go slowly, Use the handrail for balance but do not pull yourself up with your arms. - Shower daily. Do not take your heart medication right before you shower. You could become lightheaded from your blood pressure and heart medication. Always have someone nearby to assist you. - Do not take a tub bath or use a hot tub until all incision are completely healed (no scab). - Put arsen hose on in AM and remove at bedtime. Elevate your feet above level of heart when you are sitting. - Cough and deep breathe and use incentive spirometer every hour (10x/hour while awake for two weeks). Other Instructions - Weigh yourself daily at the same time (after you urinate but before breakfast) - Keep a record of your daily weight, and bring to your first post op office visit - Take all medications as prescribed. Bring all your medication bottles to any follow up office visit Incision Care - Wash your sternal incision with anti-bacterial soap and warm water. Pat dry, and leave open to air. Do not use any lotions, or powders, or ointments. Cardiothoracic Surgery: Symptom Management Office phone number: [phone] Office is open 8:30 am -4 pm. If you need assistance after hours, this will direct you to a nursing hotline. GREEN ZONE: All Clear- Your Symptoms Are Under Control Incisional pain is managed by taking Acetaminophen and/or pain medication No increase in shortness of breath No increase in leg swelling or weight gain No frequent lightheadedness/dizziness No redness or drainage from incisions. Small amount of thin, blood tinged or yellow drainage is not uncommon for few days post discharge This Means You Should: Continue current plan of care Continue taking your medications as prescribed Continue activity as tolerated, including 4 walks daily and PT exercised Eat healthy diet, no caffeine Keep all follow-up appointments No smoking YELLOW ZONE: Caution Incisional pain that is getting worse and/or not managed by pain medication Increase in shortness of breath, especially when at rest Increased leg swelling or new leg swelling Weight gain (more than 3lb in 1 day or 5lb in 1 week) Lightheadedness, dizziness, or heavy sweating Redness and/or thick drainage from incision Fever/chills This Means You Should: Call cardiothoracic surgery line for further instructions: [phone] Office is open 8:30 am -4 pm. If you need assistance after hours, this will direct you to a nursing hotline. RED ZONE: Medical Alert Severe shortness of breath at rest Severe chest pain/pressure or pain that radiates to neck, jaw, back, and/or arm that is NOT relieved with rest and pain medication. May be similar to pain prior to surgery Passing out or fainting This Means You Should: call EMS or seek care in Emergency Department documented in this encounter [facility] 05-03-2025 Note Formatting of this n ote might be different from the original. Epicardial pacing wire pulled by Dr. Ulloa without difficulty per protocol. Patient and nurse educated on possible complications. Patient tolerated well. Will continue to monitor. [facility] 05-03-2025 Note Formatting of this n ote might be different from the original. Epicardial pacing wire pulled by Dr. Ulloa without difficulty per protocol. Patient and nurse educated on possible complications. Patient tolerated well. Will continue to monitor. [facility] 05-03-2025 Miscellaneous Notes Epicardial pacing wire pulled by Dr. Ulloa without difficulty per protocol. Patient and nurse educated on possible complications. Patient tolerated well. Will continue to monitor. Problem: Knowledge Deficit Goal: Patient/family/caregiver demonstrates understanding of disease process, treatment plan, medications, and discharge instructions Outcome: Progressing Problem: Potential for Compromised Skin Integrity Goal: Skin Integrity is Maintained or Improved Outcome: Progressing Goal: Nutritional status is improving Outcome: Progressing Problem: Urinary Incontinence Goal: Perineal skin integrity is maintained or improved Outcome: Progressing Problem: Pain - Adult Goal: Verbalizes/displays adequate comfort level or baseline comfort level Outcome: Progressing Problem: Safety - Adult Goal: Free from fall injury Outcome: Progressing Problem: Discharge Planning Goal: Discharge to home or other facility with appropriate resources Outcome: Progressing Problem: Chronic Conditions and Co-morbidities Goal: Patient's chronic conditions and co-morbidity symptoms are monitored and maintained or improved Outcome: Progressing Problem: Problem Interventions Goal: Assess Nutritional Intake Outcome: Progressing Problem: Knowledge Deficit Goal: Patient/family/caregiver demonstrates understanding of disease process, treatment plan, medications, and discharge instructions Outcome: Progressing Problem: Potential for Compromised Skin Integrity Goal: Skin Integrity is Maintained or Improved Outcome: Progressing Goal: Nutritional status is improving Outcome: Progressing Problem: Urinary Incontinence Goal: Perineal skin integrity is maintained or improved Outcome: Progressing Problem: Pain - Adult Goal: Verbalizes/displays adequate comfort level or baseline comfort level Outcome: Progressing Problem: Safety - Adult Goal: Free from fall injury Outcome: Progressing Problem: Discharge Planning Goal: Discharge to home or other facility with appropriate resources Outcome: Progressing Problem: Chronic Conditions and Co-morbidities Goal: Patient's chronic conditions and co-morbidity symptoms are monitored and maintained or improved Outcome: Progressing Problem: Problem Interventions Goal: Assess Nutritional Intake Outcome: Progressing Problem: Pain - Adult Goal: Verbalizes/displays adequate comfort level or baseline comfort level Outcome: Not Progressing Flowsheets (Taken 04/28/2025 182) Verbalizes/displays adequate comfort level or baseline comfort level: Encourage patient to monitor pain and request assistance Assess pain using appropriate pain scale Administer analgesics based on type and severity of pain and evaluate response Implement non-pharmacological measures as appropriate and evaluate response Consider cultural and social influences on pain and pain management Notify Licensed Independent Practitioner if interventions unsuccessful or patient reports new pain Problem: Knowledge Deficit Goal: Patient/family/caregiver demonstrates understanding of disease process, treatment plan, medications, and discharge instructions Outcome: Progressing Flowsheets (Taken 04/28/2025 182) Patient/family/caregiver demonstrates understanding of disease process, treatment plan, medications, and discharge instructions: Provide teaching at level of understanding Provide teaching via preferred learning methods Problem: Potential for Compromised Skin Integrity Goal: Skin Integrity is Maintained or Improved Outcome: Progressing Flowsheets (Taken 04/28/20251823) Skin integrity is maintained or improved: Assess and monitor skin integrity Identify patients at risk for skin breakdown on admission and per policy Turn patient Relieve pressure to bony prominences Avoid shearing Keep skin clean and dry Monitor patient's hygiene practices Goal: Nutritional status is improving Outcome: Progressing Flowsheets (Taken 04/28/20251823) Nutritional status is improving: Monitor and assess patient for malnutrition (ex- brittle hair, bruises, dry skin, pale skin and conjunctiva, muscle wasting, smooth red tongue, and disorientation) Monitor patient's weight and dietary intake as ordered or per policy Problem: Urinary Incontinence Goal: Perineal skin integrity is maintained or improved Outcome: Progressing Flowsheets (Taken 04/28/20251823) Perineal skin integrity is maintained or improved: Keep skin clean and dry Provide privacy when changing patient's incontinence device to maintain their dignity Problem: Safety - Adult Goal: Free from fall injury Outcome: Progressing Flowsheets (Taken 04/28/20251823) Free from fall injury: Instruct family/caregiver on patient safety Problem: Discharge Planning Goal: Discharge to home or other facility with appropriate resources Outcome: Progressing Flowsheets (Taken 04/28/20251823) Discharge to home or other facility with appropriate resources: Identify barriers to discharge with patient and caregiver Problem: Chronic Conditions and Co-morbidities Goal: Patient's chronic conditions and co-morbidity symptoms are monitored and maintained or improved Outcome: Progressing Flowsheets (Taken 04/28/20251823) Care Plan - Patient's Chronic Conditions and Co-Morbidity Symptoms are Monitored and Maintained or Improved: Monitor and assess patient's chronic conditions and comorbid symptoms for stability, deterioration, or improvement Update acute care plan with appropriate goals if chronic or comorbid symptoms are exacerbated and prevent overall improvement and discharge Problem: Pain - Adult Goal: Verbalizes/displays adequate comfort level or baseline comfort level Outcome: Not Progressing Flowsheets (Taken 04/28/20251823) Verbalizes/displays adequate comfort level or baseline comfort level: Encourage patient to monitor pain and request assistance Assess pain using appropriate pain scale Administer analgesics based on type and severity of pain and evaluate response Implement non-pharmacological measures as appropriate and evaluate response Consider cultural and social influences on pain and pain management Notify Licensed Independent Practitioner if interventions unsuccessful or patient reports new pain Cardiothoracic Surgery Operative Report Date: 04/28/25 Pre-operative Diagnosis: Severe aortic stenosis Chronic diastolic congestive heart failure--class III Patent foramen ovale Post-operative Diagnosis: Severe aortic stenosis Chronic diastolic congestive heart failure--class III Patent foramen ovale Procedure: Median sternotomy Total cardiopulmonary bypass Aortic valve replacement with 25 mm SJM [place] mechanical valve (serial # [id number]) Closure of patent foramen ovale Intraoperative transesophageal echocardiogram Surgeon: Emily Ulloa DO Investigation Division Lieutenant(s): [x] Duane Call [] Enrique Prado [] Jeff Donovan [] Jeff Alvarado [] Other Anesthesia: General--Dr. Jacob Groves Thermal Spray Operator: Jessica Ross Total IV fluids: See anesthesia and perfusion record Blood Transfusion?: None Drains/wires: Chest tube x 1; ventricular pacing wires Complications: None INDICATIONS FOR SURGERY: This is a 55 y.o. year-old male who was found to have severe aortic stenosis after presenting for an acute ischemic stroke. He underwent complete workup through the structural heart clinic. Surgical consultation was obtained the the above procedure was offered. The risks, benefits, and alternatives were explained in detail and consent was obtained for the procedure. Findings: Preoperative KATY showed severe aortic stenosis and a patent foramen ovale. I discussed this finding with cardiology and another surgeon, both of whom agreed that repair was indicated. 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 It was replaced with a 25 mm prosthesis which was well-seated and functioned properly. The PFO was about 5 mm in diameter at the top of the fossa ovalis. It was closed primarily. The patient was weaned from cardiopulmonary bypass with minimal inotropic support needed. Myocardial function is preserved on KATY. The valve is well-functioning with no paravalvular leak. The PFO has no flow across it. We spent considerable time de-airing the heart while coming off bypass.Cardiopulmonary bypass time 155 minutes. Aortic cross-clamp time 121 minutes. DESCRIPTION OF PROCEDURE: The patient was brought to the operative suite and placed in supine position on the operative table. General anesthesia was administered. All appropriate lines and tubes were placed. The torso and lower extremities were then prepped and draped in the usual sterile fashion. The office assistant receptionist was present for the entire procedure from start to finish and helped with all portions of it. A standard median sternotomy incision was made. The sternum was divided in the midline and hemostasis was achieved. A standard retractor was then placed. The thymus was divided in the midline and the pericardium was opened. I dissected circumferentially around the superior and inferior vena cavae. Full dose heparin was then given. I then cannulated for bypass. A double pursestring suture was placed into the ascending aorta. An 8 mm arterial cannula was placed through this and secured. Another pursestring was placed in the superior vena cava. A right angle venous cannula was placed through this and secured. Another pursestring was placed in the lower right atrium. An inferior vena cava cannula was placed through this and secured. Another pursestring was placed in the right atrium. A retrograde cardioplegia cannula was placed through this into the coronary sinus and secured. An antegrade cardioplegia cannula was placed into the ascending aorta. We then went on total cardiopulmonary bypass. There was excellent decompression of all 4 cardiac chambers. The aortic root was dissected enough to provide exposure. An aortic cross-clamp was then placed. Cold blood antegrade followed by retrograde cardioplegia was administered with excellent diastolic arrest of the heart. Cardioplegia was readministered periodically throughout the procedure as indicated. A pledgeted stitch was placed in the right upper pulmonary vein and a left ventricular vent was passed through this across the mitral valve into the left ventricle. An oblique aortotomy was then made just above the sinotubular junction. Both coronary ostia were very high riding nearly at the level of the sinotubular junction. The valve was examined and found to be bicuspid with fusion between the right and non coronary cusps. The valve was excised sharply around the annulus which was very calcified. The annulus was debrided of all of its calcium. I then sized the valve annulus to fit a 25 mm prosthesis. Non-pledgeted 2-0 Ethibond stitches were placed in a mattress fashion in a subannular position circumferentially around the annulus. The stitches were then each passed through the sewing ring of the valve. The valve was lowered into position and appeared to be well-seated. The valve was secured in place using CorKnots. The leaflets were well-functioning once it was in place. The patient was rewarmed. The aortotomy was then closed using a double layer of running 4-0 Prolene suture. I then turned attention to the right atrium. The caval snares were taken down to isolate the atrium from blood flow. An oblique atriotomy was made. I examined the fossa ovalis and easily found the patent foramen ovale which is about 5 to 6 mm in diameter. It was closed primarily using a 4-0 Prolene suture in a [id number] fashion. It appeared to be watertight once it was closed. The atriotomy was then closed with a double layer of running 4-0 Prolene suture. The cable snares were taken up. A shot of warm straight blood was administered retrograde followed by antegrade. The patient was placed in Trendelenburg position and several Valsalva breaths were given to de-air the heart. The aortic cross-clamp was then removed. I continued venting through the aortic root as well as the left ventricle. Temporary ventricular pacing wires were placed. There is spontaneous return of cardiac activity. I then began to wean from bypass. The heart was volume loaded and began to eject. The pump flows are gradually reduced and the lungs were ventilated. As I weaned from bypass the KATY was examined and there was significant amounts of air inside the left heart. This constrained as to stay on bypass for much longer than expected. Once the air had diminished I continued weaning from bypass. The left ventricular vent was removed and the site was secured. I also discontinued the aortic root vent. I was eventually able to wean completely off bypass with minimal inotropic support needed. Once off bypass the superior vena cava cannula was removed. KATY showed there to be preserved ventricular function. The valve was functioning well with no paravalvular leak. There was also no flow across the atrial septum. Protamine was tested. The inferior vena cava cannula was removed and the site was secured. Once half the protamine was given the arterial cannula was removed and the site was secured. Hemostasis was assured at each of the surgical sites. A single chest tube was placed in the mediastinum. I then turned attention to closure. The pericardium was approximated with several interrupted stitches. The sternum was approximated with heavy steel wires in a [id number] fashion. The soft tissues were then closed in layers with running observable sutures. The procedure was then terminated. At the end of the procedure all the sponge and sharp counts were correct. Disposition: The patient having tolerated the procedure well was taken in stable condition to the [facility]. He will be monitored closely as to outputs and hemodynamics. Emily Ulloa DO FACS Cardiothoracic Surgery documented in this encounter [facility] 05-03-2025 Note Cardiothoracic Surge ry/[facility] Progress Note PATIENT NAME: Bright Keen DATE: 05/03/25 HPI: 55 y.o. male w pmHx of severe , CHF, HTN and recent ischemic stroke was seen in OP valve clinic for surgical evaluation. Of note patient was admitted to [facility] on 03/04/25 for stroke like symptoms, with MRI revealing four tiny acute embolic infarcts in the right frontal and occipital lobes, and left parietal lobe. Pt was treated with TNK and had drastic improvement in symptoms. During further workup, a transthoracic echo was obtained, which demonstrated EF 55%, LA and RA moderately dilated, and severe aortic valve stenosis concerning for potential etiology of cryptogenic stroke, peak/mean gradients 84/53 mm Hg, LITO 1.0 cm^2. He consent and was taken to the operating room for AVR and PFO repair with Dr. Ulloa on 04/28/25 Surgery/Procedure: 04/28/25: s/p AVR (#25 [facility]) PFO repair and KATY with Dr. Ulloa Interval History: 05/03/25, POD# 5: VSS on RA. No acute issues noted overnight. Patient wants to go home. Did have some coughing episodes over weekend - happened around dinner both time. No needs at this time. Review of Systems Constitutional: Negative for diaphoresis, fatigue and fever. Respiratory: Negative for cough, shortness of breath and wheezing. Cardiovascular: Negative for chest pain, palpitations and leg swelling. Gastrointestinal: Negative for abdominal distention, constipation and diarrhea. Skin: Negative for color change, pallor and rash. Objective: Last BM Date: 05/01/25 Vitals: BP: 140/76, MAP (mmHg): 95, BP Method: Automatic Heart Rate: 80 Resp: 16 Temp: 36.8 ?C (98.2 ?F), Temp Source: Temporal BMI (Calculated): 37.28 Pacer Wires: v wires CXR: BMP: Recent Labs 05/01/2531905/02/2552805/03/25 0434 NA 133* 135* 138 K 4.4 3.7 3.6 CL 101 102 103 CO2 21* 23 28 BUN 17 14 17 CREATININE 0.73 0.72 0.82 CALCIUM 8.5 8.4 8.7 MG 1.9 2.0 2.0 CBC: Recent Labs 05/01/2531905/02/2552805/03/25 043 WBC 10.3 8.1 7.2 HGB 11.3* 11.2* 11.6* HCT 34.7* 33.2* 34.2* PLT 122* 181 240 MCV 83.8 82.4 83.2 RDW 13.4 13.7 13.7 INR: Recent Labs 05/01/2531905/02/2552805/03/25 0434 INR 1.0 1.5* 1.9* Physical Exam Cardiovascular: Rate and Rhythm: Normal rate. Rhythm irregular. Heart sounds: Normal heart sounds. No murmur heard. No friction rub. Comments: Mech valve heard Pulmonary: Effort: Pulmonary effort is normal. Skin: General: Skin is warm and dry. Capillary Refill: Capillary refill takes less than 2 seconds. Findings: Bruising and ecchymosis present. Comments: Surgical Incisions: well approximate; clean dry with no drainage noted. Surrounding skin no redness, warmth, or signs of infection noted. Neurological: Mental Status: He is alert. Psychiatric: Behavior: Behavior is cooperative. Assessment: Severe s/p AVR [facility] CHF Post operative Pulm Management: Normal Post-operative Course Post-operative Atrial Fibrillation: [x]Yes [] No Plan: Patient Status: Telemetry Medications: Continue ASA, statin Amio PO -POAF Lasix IV daily - will need d/c on short regimen Nadir for coumadin life long therapy- 2-3 -lovenox subq per surgeon -INR 1.9 - patient wants to go home will discuss with surgeon GI prophy: PO protonix DVT prophy: Lovenox SubQ + coumadin Bowel: senna/miralax Interventions: Pulmonary hygiene: IS and Acapella TEDs, SCDs Restraints: []Yes [x] No Consults: Endocrine - signed off Therapies: PT: home with assist Disposition: TBD - progressive care - likely d/c ttoday vs tomorrow Tele Status A total of 18 minutes were spent between the [id number] encounter, physical exam, reviewing the medical history, coordinating the patient's care, counseling/educating the patient, ordering medications/test/procedures, interpreting results and documenting clinical information in the patients electronic health record on the day of the encounter. The patient was seen and examined Patient discussed and plan of day developed from multidisciplinary rounds between Cardiothoracic Surgery (Cardiothoracic Surgeon, DEJA) and Critical Care Attending Cardiac Core Medications: ASA and Statin EF: 55% Blood Conservation: None noted in post-operative period Project Administrative Assistant: Dr. Jackson [facility] 05-02-2025 Plan of care note Problem: Knowledge Deficit Goal: Patient/family/caregiver demonstrates understanding of disease process, treatment plan, medications, and discharge instructions Outcome: Progressing Problem: Potential for Compromised Skin Integrity Goal: Skin Integrity is Maintained or Improved Outcome: Progressing Goal: Nutritional status is improving Outcome: Progressing Problem: Urinary Incontinence Goal: Perineal skin integrity is maintained or improved Outcome: Progressing Problem: Pain - Adult Goal: Verbalizes/displays adequate comfort level or baseline comfort level Outcome: Progressing Problem: Safety - Adult Goal: Free from fall injury Outcome: Progressing Problem: Discharge Planning Goal: Discharge to home or other facility with appropriate resources Outcome: Progressing Problem: Chronic Conditions and Co-morbidities Goal: Patient's chronic conditions and co-morbidity symptoms are monitored and maintained or improved Outcome: Progressing Problem: Problem Interventions Goal: Assess Nutritional Intake Outcome: Progressing [facility] 05-02-2025 Note Cardiothoracic Surge ry/[facility] Progress Note PATIENT NAME: Bright Keen DATE: 05/02/25 HPI: 55 y.o. male w pmHx of severe , CHF, HTN and recent ischemic stroke was seen in OP valve clinic for surgical evaluation. Of note patient was admitted to [facility] on 03/04/25 for stroke like symptoms, with MRI revealing four tiny acute embolic infarcts in the right frontal and occipital lobes, and left parietal lobe. Pt was treated with TNK and had drastic improvement in symptoms. During further workup, a transthoracic echo was obtained, which demonstrated EF 55%, LA and RA moderately dilated, and severe aortic valve stenosis concerning for potential etiology of cryptogenic stroke, peak/mean gradients 84/53 mm Hg, LITO 1.0 cm^2. He consent and was taken to the operating room for AVR and PFO repair with Dr. Ulloa on 04/28/25 Surgery/Procedure: 04/28/25: s/p AVR (#25 [facility]) PFO repair and KATY with Dr. Ulloa Interval History: 05/02/25, POD# 04. Afebrile, rate controlled afib on tele, BP stable, on RA. Up walking unit this AM with . Objective: Last BM Date: 05/01/25 Vitals: BP: 129/82, MAP (mmHg): 96, BP Method: Automatic Heart Rate: 75 Resp: 16 Temp: 36.8 ?C (98.2 ?F), Temp Source: Temporal BMI (Calculated): 37.68 BMP: Recent Labs 04/30/2531205/01/25 0320 05/02/25 0529 NA 128* 133* 135* K 4.6 4.4 3.7 CL 101 101 102 CO2 24 21* 23 BUN 16 17 14 CREATININE 0.76 0.73 0.72 CALCIUM 8.6 8.5 8.4 MG 2.0 1.9 2.0 CBC: Recent Labs 04/30/2531205/01/25 0320 05/02/25 0529 WBC 11.4* 10.3 8.1 HGB 11.6* 11.3* 11.2* HCT 35.7* 34.7* 33.2* PLT 110* 122* 181 MCV 85.4 83.8 82.4 RDW 13.5 13.4 13.7 INR: Recent Labs 04/30/2531205/01/25 0320 05/02/25 0529 INR 1.0 1.0 1.5* Physical Exam Vitals reviewed. Constitutional: General: He is not in acute distress. Appearance: He is not ill-appearing or diaphoretic. Cardiovascular: Rate and Rhythm: Normal rate. Rhythm irregular. Pulses: Normal pulses. Heart sounds: No murmur heard. Pulmonary: Effort: Pulmonary effort is normal. Breath sounds: No wheezing, rhonchi or rales. Abdominal: General: There is no distension. Palpations: Abdomen is soft. Tenderness: There is no abdominal tenderness. Musculoskeletal: General: Swelling present. Skin: General: Skin is warm and dry. Capillary Refill: Capillary refill takes less than 2 seconds. Findings: Bruising present. Neurological: General: No focal deficit present. Mental Status: He is alert and oriented to person, place, and time. Assessment: Severe s/p AVR [facility] CHF Post operative Pulm Management: Normal Post-operative Course Post-operative Atrial Fibrillation: [x]Yes [] No Plan: Patient status: PCU Daily aspirin. NADIR following for coumadin management. -Mechanical AVR, goal INR 2.0-3.0 for life. -INR 1.5 today. Lovenox subcutaneous. Lasix 40mg IV daily. Change to PO amio 400mg BID. -Rate controlled afib. Bowel regimen. Encourage PO intake. Out of bed for meals, progressive mobility. Melatonin and trazodone at night. Remove central line. GI prophy: PO protonix DVT prophy:TEDs, SCDs, and Lovenox SubQ Pulmonary hygiene: IS and Acapella Consults: Endocrinology. PT/OT: Home with assist PRN (04/30/25) TCC/Discharge Planning Home when INR therapeutic. Central Line: [x]Yes [] No Arterial Line: []Yes [x] No Matias: []Yes [x] No Restraints: []Yes [x] No Patient discussed and plan of day developed from multidisciplinary rounds between Cardiothoracic Surgery (Cardiothoracic Surgeon, DEJA) and Critical Care Attending A total of 22 minutes were spent between the [id number] encounter, physical exam, reviewing the medical history, coordinating the patient's care, counseling/educating the patient, ordering medications/test/procedures, interpreting results and documenting clinical information in the patients electronic health record on the day of the encounter. The patient was seen and examined. Cardiac Core Medications: Not indicated due to type of surgery EF: 55% (03/05/25) Blood Conservation: None noted in post-operative period Project Administrative Assistant: Dr. Jacskon [facility] 05-01-2025 Plan of care note Problem: Knowledge Deficit Goal: Patient/family/caregiver demonstrates understanding of disease process, treatment plan, medications, and discharge instructions Outcome: Progressing Problem: Potential for Compromised Skin Integrity Goal: Skin Integrity is Maintained or Improved Outcome: Progressing Goal: Nutritional status is improving Outcome: Progressing Problem: Urinary Incontinence Goal: Perineal skin integrity is maintained or improved Outcome: Progressing Problem: Pain - Adult Goal: Verbalizes/displays adequate comfort level or baseline comfort level Outcome: Progressing Problem: Safety - Adult Goal: Free from fall injury Outcome: Progressing Problem: Discharge Planning Goal: Discharge to home or other facility with appropriate resources Outcome: Progressing Problem: Chronic Conditions and Co-morbidities Goal: Patient's chronic conditions and co-morbidity symptoms are monitored and maintained or improved Outcome: Progressing Problem: Problem Interventions Goal: Assess Nutritional Intake Outcome: Progressing [facility] [facility] 05[facility] Note Cardiothoracic Surge ry/CCM Progress Note PATIENT NAME: Bright Keen DATE: 05/01/25 HPI: 55 y.o. male w pmHx of severe , CHF, HTN and recent ischemic stroke was seen in OP valve clinic for surgical evaluation. Of note patient was admitted to [facility] on 03/04/25 for stroke like symptoms, with MRI revealing four tiny acute embolic infarcts in the right frontal and occipital lobes, and left parietal lobe. Pt was treated with TNK and had drastic improvement in symptoms. During further workup, a transthoracic echo was obtained, which demonstrated EF 55%, LA and RA moderately dilated, and severe aortic valve stenosis concerning for potential etiology of cryptogenic stroke, peak/mean gradients 84/53 mm Hg, LITO 1.0 cm^2. He consent and was taken to the operating room for AVR and PFO repair with Dr. Ulloa on 04/28/25 Surgery/Procedure: 04/28/25: s/p AVR (#25 [facility]) PFO repair and KATY with Dr. Ulloa Interval History: 05/01/25, POD# 03: Afebrile, rate controlled afib on tele, BP stable, on 1L NC. Labs stable, INR 1.0. Chest tubes removed. Difficulty sleeping, anxiety. Objective: UO cc/24hrs: 1000 Last BM Date: 04/27/25 Vitals: BP: 136/73, MAP (mmHg): 92, BP Method: Automatic Heart Rate: 74 Resp: 16 Temp: 36 ?C (96.8 ?F), Temp Source: Temporal BMI (Calculated): 39.16 BMP: Recent Labs 04/29/254 04/30/25 0313 05/01/25 0320 NA 137 128* 133* K 5.0 4.6 4.4 CL 110* 101 101 CO2 20* 24 21* BUN 17 16 17 CREATININE 0.89 0.76 0.73 CALCIUM 8.0* 8.6 8.5 MG 2.4 2.0 1.9 CBC: Recent Labs 04/29/2522304/30/253 05/01/25 0320 WBC 13.5* 11.4* 10.3 HGB 12.4* 11.6* 11.3* HCT 38.6* 35.7* 34.7* PLT 145 110* 122* MCV 85.0 85.4 83.8 RDW 13.5 13.5 13.4 INR: Recent Labs 04/29/2522304/30/253 05/01/25 0320 INR 1.1 1.0 1.0 Physical Exam Vitals reviewed. Constitutional: General: He is not in acute distress. Appearance: He is not ill-appearing or diaphoretic. Cardiovascular: Rate and Rhythm: Normal rate. Rhythm irregular. Pulses: Normal pulses. Heart sounds: No murmur heard. Pulmonary: Effort: Pulmonary effort is normal. Breath sounds: No wheezing, rhonchi or rales. Comments: Shallow breathing d/t pain. Abdominal: General: There is no distension. Palpations: Abdomen is soft. Tenderness: There is no abdominal tenderness. Musculoskeletal: General: Swelling present. Skin: General: Skin is warm and dry. Capillary Refill: Capillary refill takes less than 2 seconds. Findings: Bruising present. Neurological: General: No focal deficit present. Mental Status: He is alert and oriented to person, place, and time. Assessment: Severe s/p AVR [facility] CHF Post operative Pulm Management: Normal Post-operative Course Post-operative Atrial Fibrillation: [x]Yes [] No Plan: Patient status: PCU Daily aspirin. NADIR following for coumadin management. -Mechanical AVR, goal INR 2.0-3.0 for life. -INR 1.0 today. Lovenox subcutaneous. Lasix 40mg IV daily. Cut amio to 0.5mg/min. Bowel regimen. Encourage PO intake. Out of bed for meals, progressive mobility. Melatonin at night. Will try low dose trazodone for sleep. GI prophy: PO protonix DVT prophy:TEDs, SCDs, and Lovenox SubQ Pulmonary hygiene: IS and Acapella Consults: Endocrinology. PT/OT: Home with assist PRN (04/30/25) TCC/Discharge Planning Home when INR therapeutic. Central Line: [x]Yes [] No Arterial Line: []Yes [x] No Matias: []Yes [x] No Restraints: []Yes [x] No Patient discussed and plan of day developed from multidisciplinary rounds between Cardiothoracic Surgery (Cardiothoracic Surgeon, DEJA) and Critical Care Attending A total of 20 minutes were spent between the [id number] encounter, physical exam, reviewing the medical history, coordinating the patient's care, counseling/educating the patient, ordering medications/test/procedures, interpreting results and documenting clinical information in the patients electronic health record on the day of the encounter. The patient was seen and examined. Cardiac Core Medications: Not indicated due to type of surgery EF: 55% (03/05/25) Blood Conservation: None noted in post-operative period Project Administrative Assistant: Dr. Jackson [facility] 04-30-2025 Note Sinus rhythm PVC Poor R wave progression Abnormal T, consider ischemia, lateral leads Minimal ST elevation, inferior leads Electronically Signed On 04-30-2025 16:39:55 EDT by Patricio Petersen [facility] 04-30-2025 Note Sinus rhythm PVC Poor R wave progression Abnormal T, consider ischemia, lateral leads Minimal ST elevation, inferior leads Electronically Signed On 04-30-2025 16:39:55 EDT by Patricio Petersen [facility] 04-30-2025 Note IMPRESSION: Sinus rhythm PVC Poor R wave progression Abnormal T, consider ischemia, lateral leads Minimal ST elevation, inferior leads Electronically Signed On 04-30-2025 16:39:55 EDT by Patricio Petersen [facility] 04-30-2025 Consult note Associated Order (s): IP CONSULT TO DIETITIAN Nutrition Assessment Type and Reason for Visit: Initial, Consult, Patient Education Nutrition Recommendations/Plan: Continue with [address] provided Heart Healthy education handout and offered to review with and stated she would read it over. RD to stop back as able Suggest document po intake in nursing flow sheets Monitor need for oral nutritional supplements RD continue to monitor overall nutritional status and follow up weekly Malnutrition Assessment: Malnutrition Status: Insufficient data Context: Acute Illness Nutrition Assessment: Patient admitted for scheduled surgery. Patient was admitted to [facility] on 03/04/25 for stroke like symptoms, with MRI revealing four tiny acute embolic infarcts in the right frontal and occipital lobes, and left parietal lobe. Pt was treated with TNK and had drastic improvement in symptoms. During further workup, a transthoracic echo was obtained, which demonstrated EF 55%, LA and RA moderately dilated, and severe aortic valve stenosis concerning for potential etiology of cryptogenic stroke, peak/mean gradients 84/53 mm Hg, LITO 1.0 cm^2. Patient reported pretty limiting PADRON that had worsened over the previous 4-6 weeks, cardiology was consulted and elected to manage him outpatient. Patient was cleared for discharge on 03/06/25 with referral to Valve Clinic and Cryptogenic Stroke Program. Pt was evaluated in Valve Clinic on 03/30/25. Patient s/p AVR (#25 [facility]) PFO repair and KATY on 04/28/25. Today patient POD #2, currently ordered 2 grams sodium diet which is appropriate. Patient sitting in bedside chair talking loudly on phone with holding phone for patient. RD provided Heart Healthy education handout and offered to review with and stated she would read it over. Will return as able. Estimated Daily Nutrient Needs: Energy Requirements Based On: Kcal/kg Weight Used for Energy Requirements: [place] Weight for Energy Calculation (kg): 75 kg Total Energy Requirements (kcals/day): 1188-3468 (25-30) Weight Used for Protein Requirements: [place] Weight in Kg Used for Protein Requirements: 75 kg Estimated Total Protein (g/day): 75-98 (1.0-1.3) Estimated Daily Total Fluid (ml/day): per MD Nutrition Related Findings: Orientation Level: Oriented X4 Cognition: Follows commands Best Verbal Response: Oriented Patient Behaviors/Mood: Calm, Cooperative Swallow: Able to swallow solids and liquids without difficulty Archie Scale Score: 20 Wound Type: Surgical Incision Net IO Since Admission: 2,828 mL [04/30/25 1357] Gastrointestinal (WDL): Within Defined Limits Bowel Sounds (All Quadrants): Hypoactive Abdomen Inspection: Soft, Rounded Last BM Date: 04/27/25, , Edema: Generalized Edema: Non-pitting, RUE Edema: None, LUE Edema: None, RLE Edema: Non-pitting, LLE Edema: Non-pitting Oxygen Therapy: Supplemental oxygen, O2 Delivery Method: Nasal cannula, O2 Flow Rate (L/min): 1 L/min Labs and meds reviewed: BMP: Recent Labs 04/28/25 1322 04/29/25 0224 04/30/25 0313 NA 140 137 128* K 3.5 5.0 4.6 CL 113* 110* 101 CO2 19* 20* 24 BUN 15 17 16 CREATININE 0.81 0.89 0.76 GLUCOSE 132* 131* 115* CALCIUM 7.5* 8.0* 8.6 MG 3.5* 2.4 2.0 HEPATIC: Recent Labs 04/28/25 1322 AST 55* ALT 19 BILITOT 1.1 ALKPHOS 37* Glucose Date Value Ref Range Status 04/29/2025 116 (H) 70 - 100 mg/dL Final 04/29/2025 131 (H) 70 - 100 mg/dL Final 04/29/2025 126 (H) 70 - 100 mg/dL Final 04/29/2025 119 (H) 70 - 100 mg/dL Final 04/29/2025 136 (H) 70 - 100 mg/dL Final 04/29/2025 127 (H) 70 - 100 mg/dL Final Scheduled: Scheduled Meds[1] Continuous: Continuous Meds[2] Current Nutrition Therapies: Adult diet Regular; Low Sodium (2 gm) Current Oral Intake Average Meal Intake: Unable to assess Average Supplements Intake: None Ordered Anthropometric Measures: Height: 177.8 cm (5' 10) Current Body Weight: 123 kg (272 lb) Weight Source: Bed Scale Admission Body Weight: 118 kg (260 lb) (PAT 04/21/25) Usual Body Weight: 123 kg (271 lb) (03/05/25) % Weight Change (Calculated): 0.4 [place] Body Weight (lbs) (Calculated): 166 lbs [place] Body Weight (Kg) (Calculated): 75 kg BMI (kg/m2) (Calculated): 39 Wt Readings from Last 8 Encounters: 04/30/25 124 kg (272 lb 14.9 oz) 04/21/25 118 kg (260 lb) 04/15/25 118 kg (261 lb) 03/30/25 119 kg (262 lb 5.6 oz) 03/30/25 119 kg (263 lb 3.2 oz) 03/05/25 123 kg (271 lb) Nutrition Diagnosis: Food & Nutrition-related knowledge deficit related to cardiac dysfunction as evidenced by (Education provided) Nutrition Interventions: Nutrition Education/Counseling: Education initiated Coordination of Nutrition Care: Continue to monitor while inpatient Goals: Goals: PO intake 75% or greater, by next RD assessment Nutrition Monitoring and Evaluation: Behavioral-Environmental Outcomes: None Identified Food/Nutrient Intake Outcomes: Food and Nutrient Intake Physical Signs/Symptoms Outcomes: Biochemical Data, GI Status, Fluid Status or Edema, Skin, Weight Discharge Planning: Continue current diet Stefanie Guajardo, MS RD LD Contact: MobileSpan or *[phone] [1] acetaminophen, 1,000 mg, Oral, q8h aspirin, 81 mg, Oral, Daily atorvastatin, 80 mg, Oral, Nightly chlorhexidine, , Topical, Daily enoxaparin, 40 mg, SubCUTAneous, Daily Lidocaine, 1 patch, Topical, Daily melatonin, 5 mg, Oral, Nightly mupirocin, , Nasal, BID pantoprazole, 40 mg, Oral, qAM AC polyethylene glycol (PEG) 3350, 17 g, Oral, Daily senna-docusate sodium, 2 tablet, Oral, Nightly sodium chloride 0.9%, 5-40 mL, IntraCATHeter, q8h warfarin, 3 mg, Oral, Once [2] amiodarone, 1 mg/min, Last Rate: 1 mg/min (04/30/25 0821) lactated ringers, 250 mL nitroprusside, 0.1-3 mcg/kg/min norepinephrine, 0.01-0.2 mcg/kg/min, Last Rate: Stopped (04/29/25 0500) [facility] 04-30-2025 Note Nutrition Assessment Type and Reason for Visit: Initial, Consult, Patient Education Nutrition Recommendations/Plan: Continue with [address] provided Heart Healthy education handout and offered to review with and stated she would read it over. RD to stop back as able Suggest document po intake in nursing flow sheets Monitor need for oral nutritional supplements RD continue to monitor overall nutritional status and follow up weekly Malnutrition Assessment: Malnutrition Status: Insufficient data Context: Acute Illness Nutrition Assessment: Patient admitted for scheduled surgery. Patient was admitted to [facility] on 03/04/25 for stroke like symptoms, with MRI revealing four tiny acute embolic infarcts in the right frontal and occipital lobes, and left parietal lobe. Pt was treated with TNK and had drastic improvement in symptoms. During further workup, a transthoracic echo was obtained, which demonstrated EF 55%, LA and RA moderately dilated, and severe aortic valve stenosis concerning for potential etiology of cryptogenic stroke, peak/mean gradients 84/53 mm Hg, LITO 1.0 cm^2. Patient reported pretty limiting PADRON that had worsened over the previous 4-6 weeks, cardiology was consulted and elected to manage him outpatient. Patient was cleared for discharge on 03/06/25 with referral to Valve Clinic and Cryptogenic Stroke Program. Pt was evaluated in Valve Clinic on 03/30/25. Patient s/p AVR (#25 [facility]) PFO repair and KATY on 04/28/25. Today patient POD #2, currently ordered 2 grams sodium diet which is appropriate. Patient sitting in bedside chair talking loudly on phone with holding phone for patient. RD provided Heart Healthy education handout and offered to review with and stated she would read it over. Will return as able. Estimated Daily Nutrient Needs: Energy Requirements Based On: Kcal/kg Weight Used for Energy Requirements: [place] Weight for Energy Calculation (kg): 75 kg Total Energy Requirements (kcals/day): 1135-7743 (25-30) Weight Used for Protein Requirements: [place] Weight in Kg Used for Protein Requirements: 75 kg Estimated Total Protein (g/day): 75-98 (1.0-1.3) Estimated Daily Total Fluid (ml/day): per MD Nutrition Related Findings: Orientation Level: Oriented X4 Cognition: Follows commands Best Verbal Response: Oriented Patient Behaviors/Mood: Calm, Cooperative Swallow: Able to swallow solids and liquids without difficulty Archie Scale Score: 20 Wound Type: Surgical Incision Net IO Since Admission: 2,828 mL [04/30/25 1357] Gastrointestinal (WDL): Within Defined Limits Bowel Sounds (All Quadrants): Hypoactive Abdomen Inspection: Soft, Rounded Last BM Date: 04/27/25, , Edema: Generalized Edema: Non-pitting, RUE Edema: None, LUE Edema: None, RLE Edema: Non-pitting, LLE Edema: Non-pitting Oxygen Therapy: Supplemental oxygen, O2 Delivery Method: Nasal cannula, O2 Flow Rate (L/min): 1 L/min Labs and meds reviewed: BMP: Recent Labs 04/28/25 1322 04/29/25 0224 04/30/25 0313 NA 140 137 128* K 3.5 5.0 4.6 CL 113* 110* 101 CO2 19* 20* 24 BUN 15 17 16 CREATININE 0.81 0.89 0.76 GLUCOSE 132* 131* 115* CALCIUM 7.5* 8.0* 8.6 MG 3.5* 2.4 2.0 HEPATIC: Recent Labs 04/28/25 1322 AST 55* ALT 19 BILITOT 1.1 ALKPHOS 37* Glucose Date Value Ref Range Status 04/29/2025 116 (H) 70 - 100 mg/dL Final 04/29/2025 131 (H) 70 - 100 mg/dL Final 04/29/2025 126 (H) 70 - 100 mg/dL Final 04/29/2025 119 (H) 70 - 100 mg/dL Final 04/29/2025 136 (H) 70 - 100 mg/dL Final 04/29/2025 127 (H) 70 - 100 mg/dL Final Scheduled: Scheduled Meds[1] Continuous: Continuous Meds[2] Current Nutrition Therapies: Adult diet Regular; Low Sodium (2 gm) Current Oral Intake Average Meal Intake: Unable to assess Average Supplements Intake: None Ordered Anthropometric Measures: Height: 177.8 cm (5' 10) Current Body Weight: 123 kg (272 lb) Weight Source: Bed Scale Admission Body Weight: 118 kg (260 lb) (PAT 04/21/25) Usual Body Weight: 123 kg (271 lb) (03/05/25) % Weight Change (Calculated): 0.4 [place] Body Weight (lbs) (Calculated): 166 lbs [place] Body Weight (Kg) (Calculated): 75 kg BMI (kg/m2) (Calculated): 39 Wt Readings from Last 8 Encounters: 04/30/25 124 kg (272 lb 14.9 oz) 04/21/25 118 kg (260 lb) 04/15/25 118 kg (261 lb) 03/30/25 119 kg (262 lb 5.6 oz) 03/30/25 119 kg (263 lb 3.2 oz) 03/05/25 123 kg (271 lb) Nutrition Diagnosis: Food & Nutrition-related knowledge deficit related to cardiac dysfunction as evidenced by (Education provided) Nutrition Interventions: Nutrition Education/Counseling: Education initiated Coordination of Nutrition Care: Continue to monitor while inpatient Goals: Goals: PO intake 75% or greater, by next RD assessment Nutrition Monitoring and Evaluation: Behavioral-Environmental Outcomes: None Identified Food/Nutrient Intake Outcomes: Food and Nutrient Intake Physical Sig (more content not included)... [facility] 04-30-2025 Consult note Associated Order (s): IP CONSULT TO DIETITIAN Nutrition Assessment Type and Reason for Visit: Initial, Consult, Patient Education Nutrition Recommendations/Plan: Continue with [address] provided Heart Healthy education handout and offered to review with and stated she would read it over. RD to stop back as able Suggest document po intake in nursing flow sheets Monitor need for oral nutritional supplements RD continue to monitor overall nutritional status and follow up weekly Malnutrition Assessment: Malnutrition Status: Insufficient data Context: Acute Illness Nutrition Assessment: Patient admitted for scheduled surgery. Patient was admitted to [facility] on 03/04/25 for stroke like symptoms, with MRI revealing four tiny acute embolic infarcts in the right frontal and occipital lobes, and left parietal lobe. Pt was treated with TNK and had drastic improvement in symptoms. During further workup, a transthoracic echo was obtained, which demonstrated EF 55%, LA and RA moderately dilated, and severe aortic valve stenosis concerning for potential etiology of cryptogenic stroke, peak/mean gradients 84/53 mm Hg, LITO 1.0 cm^2. Patient reported pretty limiting PADRON that had worsened over the previous 4-6 weeks, cardiology was consulted and elected to manage him outpatient. Patient was cleared for discharge on 03/06/25 with referral to Valve Clinic and Cryptogenic Stroke Program. Pt was evaluated in Valve Clinic on 03/30/25. Patient s/p AVR (#25 [facility]) PFO repair and KATY on 04/28/25. Today patient POD #2, currently ordered 2 grams sodium diet which is appropriate. Patient sitting in bedside chair talking loudly on phone with holding phone for patient. RD provided Heart Healthy education handout and offered to review with and stated she would read it over. Will return as able. Estimated Daily Nutrient Needs: Energy Requirements Based On: Kcal/kg Weight Used for Energy Requirements: [place] Weight for Energy Calculation (kg): 75 kg Total Energy Requirements (kcals/day): 4915-7952 (25-30) Weight Used for Protein Requirements: [place] Weight in Kg Used for Protein Requirements: 75 kg Estimated Total Protein (g/day): 75-98 (1.0-1.3) Estimated Daily Total Fluid (ml/day): per MD Nutrition Related Findings: Orientation Level: Oriented X4 Cognition: Follows commands Best Verbal Response: Oriented Patient Behaviors/Mood: Calm, Cooperative Swallow: Able to swallow solids and liquids without difficulty Archie Scale Score: 20 Wound Type: Surgical Incision Net IO Since Admission: 2,828 mL [04/30/25 1357] Gastrointestinal (WDL): Within Defined Limits Bowel Sounds (All Quadrants): Hypoactive Abdomen Inspection: Soft, Rounded Last BM Date: 04/27/25, , Edema: Generalized Edema: Non-pitting, RUE Edema: None, LUE Edema: None, RLE Edema: Non-pitting, LLE Edema: Non-pitting Oxygen Therapy: Supplemental oxygen, O2 Delivery Method: Nasal cannula, O2 Flow Rate (L/min): 1 L/min Labs and meds reviewed: BMP: Recent Labs 04/28/25 1322 04/29/25 0224 04/30/25 0313 NA 140 137 128* K 3.5 5.0 4.6 CL 113* 110* 101 CO2 19* 20* 24 BUN 15 17 16 CREATININE 0.81 0.89 0.76 GLUCOSE 132* 131* 115* CALCIUM 7.5* 8.0* 8.6 MG 3.5* 2.4 2.0 HEPATIC: Recent Labs 04/28/25 1322 AST 55* ALT 19 BILITOT 1.1 ALKPHOS 37* Glucose Date Value Ref Range Status 04/29/2025 116 (H) 70 - 100 mg/dL Final 04/29/2025 131 (H) 70 - 100 mg/dL Final 04/29/2025 126 (H) 70 - 100 mg/dL Final 04/29/2025 119 (H) 70 - 100 mg/dL Final 04/29/2025 136 (H) 70 - 100 mg/dL Final 04/29/2025 127 (H) 70 - 100 mg/dL Final Scheduled: Scheduled Meds[1] Continuous: Continuous Meds[2] Current Nutrition Therapies: Adult diet Regular; Low Sodium (2 gm) Current Oral Intake Average Meal Intake: Unable to assess Average Supplements Intake: None Ordered Anthropometric Measures: Height: 177.8 cm (5' 10) Current Body Weight: 123 kg (272 lb) Weight Source: Bed Scale Admission Body Weight: 118 kg (260 lb) (PAT 04/21/25) Usual Body Weight: 123 kg (271 lb) (03/05/25) % Weight Change (Calculated): 0.4 [place] Body Weight (lbs) (Calculated): 166 lbs [place] Body Weight (Kg) (Calculated): 75 kg BMI (kg/m2) (Calculated): 39 Wt Readings from Last 8 Encounters: 04/30/25 124 kg (272 lb 14.9 oz) 04/21/25 118 kg (260 lb) 04/15/25 118 kg (261 lb) 03/30/25 119 kg (262 lb 5.6 oz) 03/30/25 119 kg (263 lb 3.2 oz) 03/05/25 123 kg (271 lb) Nutrition Diagnosis: Food & Nutrition-related knowledge deficit related to cardiac dysfunction as evidenced by (Education provided) Nutrition Interventions: Nutrition Education/Counseling: Education initiated Coordination of Nutrition Care: Continue to monitor while inpatient Goals: Goals: PO intake 75% or greater, by next RD assessment Nutrition Monitoring and Evaluation: Behavioral-Environmental Outcomes: None Identified Food/Nutrient Intake Outcomes: Food and Nutrient Intake Physical Signs/Symptoms Outcomes: Biochemical Data, GI Status, Fluid Status or Edema, Skin, Weight Discharge Planning: Continue current diet Stefanie Guajardo MS RD LD Contact: MobileSpan or *[phone] [1] acetaminophen, 1,000 mg, Oral, q8h aspirin, 81 mg, Oral, Daily atorvastatin, 80 mg, Oral, Nightly chlorhexidine, , Topical, Daily enoxaparin, 40 mg, SubCUTAneous, Daily Lidocaine, 1 patch, Topical, Daily melatonin, 5 mg, Oral, Nightly mupirocin, , Nasal, BID pantoprazole, 40 mg, Oral, qAM AC polyethylene glycol (PEG) 3350, 17 g, Oral, Daily senna-docusate sodium, 2 tablet, Oral, Nightly sodium chloride 0.9%, 5-40 mL, IntraCATHeter, q8h warfarin, 3 mg, Oral, Once [2] amiodarone, 1 mg/min, Last Rate: 1 mg/min (04/30/25 0821) lactated ringers, 250 mL nitroprusside, 0.1-3 mcg/kg/min norepinephrine, 0.01-0.2 mcg/kg/min, Last Rate: Stopped (04/29/25 0500) Associated Order(s): IP CONSULT TO CARDIAC REHAB Received referral and reviewed chart. Unable to discuss Phase II Cardiopulmonary Rehab Referral with Bright Keen at this time. Will follow to discuss program when appropriate. Patient will be contacted at home if discharged prior to discussion. Associated Order(s): IP CONSULT TO ENDOCRINOLOGY Department of Internal Medicine Division of Endocrinology, Diabetes, & Metabolism Endocrinology Note Patient Name: Bright Keen : 1970 AGE: 55 y.o. Room/Bed: T1-111/T1-111 A Admission Date: 04/28/2025 Visit Date: 04/28/2025 Reason for Endocrine Consult: post heart Provider/Team Requesting Consult: CTS PCP: Asher Jesus PA-C Outpt Geodetic Surveyor: No ASSESSMENT: Stress hyperglycemia AVR HLD/HTN Obesity Body mass index is 37.31 kg/m . PLAN: Continue on insulin gtt ICU goal <180 GMF goal <150 POCT BG ACHS Hypoglycemia management per protocol Carb controlled diet ANTICIPATED ENDOCRINE HOME GOING RECOMMENDATIONS: Optimized for Discharge from Endocrine standpoint: No Home Going Endocrine Rx Recommendations-- NONE Outpt Follow Up-- PCP SUBJECTIVE/HPI: CHIEF COMPLAINT: No chief complaint on file. S/p AVR BGL below- stable Insulin gtt on Pressors as needed VSS NPO Currently intubated/sedated-will clarify hx once extubated, does not appear to have DM per chart review Spoke with team No family present Type of DM: NA Onset of DM: NA Home DM Medication Regimen: NA DM control (last A1c/glucose data): Lab Results Component Value Date HGBA1C 5.4 04/21/2025 Glucose Date/Time Value Ref Range Status 04/28/2025 01:13 PM 97 70 - 100 mg/dL Final Review of Systems ROS negative except for those mentioned in HPI. OBJECTIVE: Vitals: 04/28/25 0545 04/28/25 1256 04/28/25 1315 BP: (!) 164/105 Pulse: 76 69 Resp: 19 Temp: 36.1 C (97 F) (!) 35.9 C (96.6 F) TempSrc: Tympanic Tympanic SpO2: 100% 100% Weight: 260 lb (118 kg) Height: 5' 10 (1.778 m) Physical Exam Vitals and nursing note reviewed. Constitutional: General: He is sleeping. He is not in acute distress. Appearance: He is ill-appearing. He is not toxic-appearing. Interventions: He is sedated and intubated. HENT: Head: Normocephalic. Mouth/Throat: Mouth: Mucous membranes are moist. Cardiovascular: Rate and Rhythm: Normal rate. Pulmonary: Effort: Pulmonary effort is normal. No respiratory distress. He is intubated. Abdominal: Tenderness: There is no guarding. Skin: General: Skin is warm and dry. Coloration: Skin is pale. Comments: Intact incision 24 hour intake/output: Intake/Output Summary (Last 24 hours) at 04/28/2025 1334 Last data filed at 04/28/2025 1321 Gross per 24 hour Intake 4342 ml Output 1225 ml Net 3117 ml Diet: NPO diet Medications (as per EMR): HomeMeds: Current Outpatient Medications Medication Instructions aspirin 81 mg, Oral, Daily atorvastatin (LIPITOR) 40 mg, Oral, Daily chlorhexidine (Peridex) 0.12 % solution 15 mL, Once mupirocin (Bactroban) 2 % ointment Apply liberal amount per nostril the night before surgery and then again the morning of surgery Scheduled Meds:Scheduled Meds[1] Continuous Infusions:Continuous Meds[2] PRN Meds:PRN Meds[3] Diagnostic Workup: I reviewed pertinent Laboratory results, Radiographic results, and Other Clinical Notes at the time of today's encounter. Labs: No components found for: LABA1C No components found for: EAG No results found for: NA, K, CL, CO2, BUN, CREATININE, GLUCOSE, CALCIUM Lab Results Component Value Date CHOL 177 03/05/2025 Lab Results Component Value Date TRIG 44 03/05/2025 Lab Results Component Value Date HDL 35 (L) 03/05/2025 Lab Results Component Value Date LDLCALC 133 (H) 03/05/2025 No results found for: VLDL Lab Results Component Value Date CHOLHDLRATIO 5 03/05/2025 No results found for: [id number] No results found for: TSH, T2GJRQS, Z2LDLQT, THYROIDAB Radiology reportsas per the Radiologist Radiology: ECG 12 lead Result Date: 04/28/2025 Sinus rhythm Anterior infarct, old Prolonged QT interval POCT glucose meter Result Date: 04/28/2025 Performed by: [facility], [address] [place], [place] [id number] CLIA ID: [id number] History/Other: Past Medical History: Medical History[4] Past Surgical History: Surgical History[5] Allergy(ies): Allergies[6] Family History: Family History[7] Social History: Social History[8] Portions of the information within this encounter were entered using an electronic dictation system. Best attempts were made to edit/proofread the information prior to note completion. Despite the review of information, some errors may remain. If there are questions related to the information contained within the note please contact the signing physician directly. I spent 60 minutes with the pt which involved coordination of care, medical evaluation, review of records, and/or counseling of the pt regarding his/her condition/disease state/prognosis on the date of this note. [1] acetaminophen, 1,000 mg, Oral, q8h ceFAZolin, 2,000 mg, IntraVENous, q8h [START ON 04/29/2025] chlorhexidine, , Topical, Daily chlorhexidine, 15 mL, Mouth/Throat, BID Lidocaine, 1 patch, Topical, Daily mupirocin, , Nasal, BID [START ON 04/29/2025] pantoprazole, 40 mg, IntraVENous, Daily polyethylene glycol (PEG) 3350, 17 g, Oral, Daily senna-docusate sodium, 2 tablet, Oral, Nightly sodium chloride 0.9%, 5-40 mL, IntraCATHeter, q8h sugammadex, 4 mg/kg, IntraVENous, Once [2] EPINEPHrine, 0.01-0.2 mcg/kg/min insulin regular, 0.5-50 Units/hr lactated ringers, 250 mL nitroprusside, 0.1-3 mcg/kg/min norepinephrine, 0.01-0.2 mcg/kg/min propofol, 5-50 mcg/kg/min sodium chloride, 20 mL/hr [3] PRN medications: albumin human, calcium gluconate, dextrose, dextrose, EPINEPHrine, glucagon (rDNA), glucose, ipratropium-albuterol, lactated ringers, magnesium hydroxide, magnesium sulfate OR magnesium sulfate, morphine sulfate OR morphine sulfate, nitroprusside, norepinephrine, ondansetron ODT OR ondansetron, oxyCODONE OR oxyCODONE, potassium chloride OR potassium chloride OR potassium chloride, [START ON 04/29/2025] potassium chloride CR, sodium chloride 0.9% [4] Past Medical History: Diagnosis Date Heart valve disorder Hyperlipidemia Hypertension Stroke (HCC) no residual [5] Past Surgical History: Procedure Laterality Date ARM FRACTURE SURGERY (HISTORICAL) Bilateral plates inserted both arms CARDIAC CATHETERIZATION N/A 04/06/2025 Performed by Shilpa Jackson MD at [facility] Cardiac Cath/EP Lab [6] Allergies Allergen Reactions Hydrocodone hallucinations [7] No family history on file. [8] Social History Tobacco Use Smoking status: Never Smokeless tobacco: Never Vaping Use Vaping status: Never Used Substance Use Topics Alcohol use: Not Currently Drug use: Not Currently Cosigned by Ignacio Harris at 04/28/2025 4:28 PM EDT Associated attestation - Ignacio Harris - 04/28/2025 4:28 PM EDT I discussed management with the Nurse Practitioner (DENTAL TECHNOLOGIST). I reviewed the DENTAL TECHNOLOGIST's note and agree with the documented findings and plan of care. Thank you so much for the consult. Should you have any questions please don t hesitate to contact us. Images from the original note were not included. [facility]: Critical Care Consultation Note Date: 04/28/25 PATIENT NAME: Bright eKen : 1970 (55 y.o.) Reason for Consult: Critical Care & Vent Management HPI: 55 y.o. male w pmHx of severe , CHF, HTN and recent ischemic stroke was seen in OP valve clinic for surgical evaluation. Of note patient was admitted to [facility] on 03/04/25 for stroke like symptoms, with MRI revealing four tiny acute embolic infarcts in the right frontal and occipital lobes, and left parietal lobe. Pt was treated with TNK and had drastic improvement in symptoms. During further workup, a transthoracic echo was obtained, which demonstrated EF 55%, LA and RA moderately dilated, and severe aortic valve stenosis concerning for potential etiology of cryptogenic stroke, peak/mean gradients 84/53 mm Hg, LITO 1.0 cm^2. He consent and was taken to the operating room for AVR and PFO repair with Dr. Ulloa on 04/28/25 Surgery: 04/28/25: s/p AVR (#25 [facility]) PFO repair and KATY with Dr. Ulloa Interval History: 04/28/25: POD #0: Patient arrived to the unit, intubated and sedated. Surgical hand off completed below. Surgery Hand Off: Arrival Time in CTVICU: 1300 Complications/Pertinent Events: none noted Last Paralytic:1204 Medications given in route: none noted Gtts OR report Epinephrine: 0.04 Insulin: 2 Amicar: 29 Current gtts upon arrival Propofol: 20 Insulin: Amicar: 29 Devices: Epicardial wires: yes [x] no [] Blood Transfusions Intra Op: yes [x] no [] CellSaver: yes Additional Interventions/Misc during Handoff None noted Review of Systems Unable to perform ROS: Intubated Allergies: Hydrocodone Past Medical History: has a past medical history of Heart valve disorder, Hyperlipidemia, Hypertension, and Stroke (HCC). Past Surgical History: has a past surgical history that includes Cardiac catheterization (N/A, 04/06/2025) and arm fracture surgery (historical) (Bilateral). Social History: reports that he has never smoked. He has never used smokeless tobacco. He reports that he does not currently use alcohol. He reports that he does not currently use drugs. Family History: family history is not on file. Medications: Prior to Admission medications Medication Sig Start Date End Date Taking? Authorizing Provider aspirin 81 MG chewable tablet Chew 1 tablet (81 mg) daily. Do not start before March 07, 2025. 03/07/25 03/07/26 Yes Chad Holcomb MD atorvastatin (Lipitor) 40 MG tablet Take 1 tablet (40 mg) by mouth daily. Do not start before March 07, 2025. 03/07/25 03/07/26 Yes Chad Holcomb MD chlorhexidine (Peridex) 0.12 % solution Use 15 mL in the mouth or throat 1 time. Yes Historical Provider, mupirocin (Bactroban) 2 % ointment Apply liberal amount per nostril the night before surgery and then again the morning of surgery Patient taking differently: Apply liberal amount per nostril the night before surgery and then again the morning of surgery Pre op medication 04/16/25 Yes Jacek Alvarado APRN - [employer] ATTENDANT Objective: BP (!) 164/105 Pulse 69 Temp (!) 35.9 C (96.6 F) (Tympanic) Resp 19 Ht 5' 10 (1.778 m) Wt 260 lb (118 kg) SpO2 100% BMI 37.31 kg/m Intake/Output Summary (Last 24 hours) at 04/28/2025 1337 Last data filed at 04/28/2025 1321 Gross per 24 hour Intake 4342 ml Output 1225 ml Net 3117 ml Physical Exam Constitutional: Interventions: He is sedated and intubated. HENT: Mouth/Throat: Comments: ETT in place Neck: Vascular: No JVD. Trachea: Trachea normal. Cardiovascular: Rate and Rhythm: Normal rate and regular rhythm. Pulses: Radial pulses are 2+ on the right side and 2+ on the left side. Heart sounds: Normal heart sounds, S1 normal and S2 normal. Comments: [facility] valve heard Pulmonary: Effort: He is intubated. Breath sounds: Decreased breath sounds present. Abdominal: General: Bowel sounds are absent. Genitourinary: Comments: Matias catheter to straight drain Musculoskeletal: Right lower leg: No edema. Left lower leg: No edema. Skin: Findings: Bruising and ecchymosis present. Comments: Surgical dressing dry and intact Diagnostics: Reviewed in EMR Labs: Reviewed in EMR BMP:No results for input(s): NA, K, CL, CO2, BUN, CREATININE, CALCIUM, MG, PHOS in the last 72 hours. CBC: Recent Labs 04/28/25 1322 WBC 24.3* HGB 13.0 13.1 HCT 39.5* PLT 146 MCV 83.9 RDW 13.0 INR: No results for input(s): INR in the last 72 hours. Assessment: Severe s/p AVR [facility] CHF Post operative Pulm Management: Normal Post-operative Course Post-operative Atrial Fibrillation: []Yes [x] No Plan: - Sugamadex - Check CMP, CBC, ABG, VBG, Coags - Will need Nadir consult for coumadin life long therapy - 2-3 - Hemodynamic goals: CI >2.0, SBP 90-130 mmHg, MAP 60-75 - PRN Hypertension Nipride -PRN Hypotension Levophed gtt - Temp pacing wires/mode: v wies - Chest tubes: no air leak or fluctuation noted, suction - Cefazolin - surgical prophy for 5 doses total - Wean to Extubation: Arrival Time in unit: 1300 - Vent: ACVC+, TV 6ml/kg/min, rate 12, fio2 100% PEEP 8 VAP protocol: HOB >30 degrees; peridex BID - Insulin gtt; per endo/protocol - GI prophy: Protonix IV daily Critical Care time spent 25 minutes. The time involved in the performance of this care was exclusive of separately billable procedures, teaching time and treating other patients. The time was spent personally by myself for the following activities: examination of the patient, ordering and/or performing treatment, reviewing the laboratory and radiographic studies, and if applicable, ventilator management and blood gas interpretation. Patient treatment plan and plan of care discuss with Dr. Zachariah Wellington Cosigned by Jadiel Wellington DO at 04/28/2025 2:07 PM EDT Associated attestation - Jadiel Wellington DO - 04/28/2025 2:07 PM EDT I reviewed the AAP's note and agree with the documented findings and plan of care. Patient s/p AVR w/ PFO repair OR course uncomplicated Neuro: - Continue sedation for now, PRNs once extubated - had a TIA earlier this year, no residual defects noted on exam per chart review Cardio/hemodynamic - Pacer in place, [place] rate in the upper 60s, not being paced - CVP 6 - no vasoactives, cap refill is brisk Pulm/respiratory - Vent settings 14 450 100% +8 - Chest XR with NAD - Chest tubes in place GI - NPO pending extubation, Diet as tolerated once extubated - PPI /Renal - Matias in place - Electrolytes WNL ID - surgical ppx abx - no leukocytosis, no fever Endo - insulin infusion off - A1c 5.4 Heme - Cellsaver given, no transfusion needs - AVR,will need AC - SCDs Critical care time 35 minutes documented in this encounter [facility] 04-30-2025 Nurse Note Wound Care consulted for Pressure Injury Prevention. Pt's Archie= 20 on 04/30/2025, at this time the pt is no longer at risk per Archie Scale. Skin Care Precaution order set in place. Will continue to follow peripherally. Please voicera or secure chat message with any questions. Tonie Proctor RN, BSN [facility] 04-30-2025 Nurse Note Wound Care consulted for Pressure Injury Prevention. Pt's Archie= 20 on 04/30/2025, at this time the pt is no longer at risk per Archie Scale. Skin Care Precaution order set in place. Will continue to follow peripherally. Please voicera or secure chat message with any questions. Tonie Proctor RN, BSN documented in this encounter [facility] 04-30-2025 Note Cardiothoracic Surge ry/CCM Progress Note PATIENT NAME: Bright Keen DATE: 04/30/25 HPI: 55 y.o. male w pmHx of severe , CHF, HTN and recent ischemic stroke was seen in OP valve clinic for surgical evaluation. Of note patient was admitted to [facility] on 03/04/25 for stroke like symptoms, with MRI revealing four tiny acute embolic infarcts in the right frontal and occipital lobes, and left parietal lobe. Pt was treated with TNK and had drastic improvement in symptoms. During further workup, a transthoracic echo was obtained, which demonstrated EF 55%, LA and RA moderately dilated, and severe aortic valve stenosis concerning for potential etiology of cryptogenic stroke, peak/mean gradients 84/53 mm Hg, LITO 1.0 cm^2. He consent and was taken to the operating room for AVR and PFO repair with Dr. Ulloa on 04/28/25 Surgery/Procedure: 04/28/25: s/p AVR (#25 [facility]) PFO repair and KATY with Dr. Ulloa Interval History: 04/30/25, POD# 2: VSS afib rate control this morning. Asymptomatic with it. On 1LNC. Up to chair bedside. Still with pain -- incisional and ct related. Drop in Na - no associated symptoms - monitor Review of Systems Constitutional: Negative for diaphoresis, fatigue and fever. Respiratory: Negative for cough, shortness of breath and wheezing. Cardiovascular: Positive for chest pain. Negative for palpitations and leg swelling. Gastrointestinal: Negative for abdominal distention, constipation and diarrhea. Skin: Negative for color change, pallor and rash. Objective: CT output cc/24hrs: 70 UO cc/24hrs: 200 + undocumented voids Last BM Date: 04/27/25 Vitals: BP: 121/77, MAP (mmHg): 91, BP Method: Automatic Heart Rate: 81 Resp: 15 Temp: 36.4 ?C (97.5 ?F), Temp Source: Temporal BMI (Calculated): 38.01 Pacer Wires: v wires CXR: BMP: Recent Labs 04/28/25 1322 04/29/25 0224 04/30/25 0313 NA 140 137 128* K 3.5 5.0 4.6 CL 113* 110* 101 CO2 19* 20* 24 BUN 15 17 16 CREATININE 0.81 0.89 0.76 CALCIUM 7.5* 8.0* 8.6 MG 3.5* 2.4 2.0 CBC: Recent Labs 04/28/25 1322 04/29/25 0224 04/30/25 0313 WBC 24.3* 13.5* 11.4* HGB 13.0 13.1 12.4* 11.6* HCT 39.5* 38.6* 35.7* PLT 146 145 110* MCV 83.9 85.0 85.4 RDW 13.0 13.5 13.5 INR: Recent Labs 04/28/25 1322 04/29/25 0224 04/30/25 0313 INR 1.2* 1.1 1.0 Physical Exam Cardiovascular: Rate and Rhythm: Normal rate. Rhythm irregular. Heart sounds: Normal heart sounds. No murmur heard. No friction rub. Comments: Mech valve heard Pulmonary: Effort: Pulmonary effort is normal. Skin: General: Skin is warm and dry. Capillary Refill: Capillary refill takes less than 2 seconds. Findings: Bruising and ecchymosis present. Comments: Surgical Incisions: well approximate; clean dry with no drainage noted. Surrounding skin no redness, warmth, or signs of infection noted. Neurological: Mental Status: He is alert. Psychiatric: Behavior: Behavior is cooperative. Assessment: [facility] Post operative Pulm Management: Normal Post-operative Course Post-operative Atrial Fibrillation: [x]Yes [] No Plan: Patient Status: Telemetry Medications: Continue ASA, statin Bolus and gtt amio Nadir for coumadin life long therapy- 2-3 -lovenox subq per surgeon GI prophy: PO protonix DVT prophy: Lovenox SubQ + coumadin Bowel: senna/miralax Interventions: Pulmonary hygiene: IS and Acapella TEDs, SCDs Lines/Drains: -CVC: Triple lumen RIJ -Chest tubes: to water seal - remove today Restraints: []Yes [x] No Consults: Endocrine - insulin management D/c recs: TBD Therapies: PT: home with assist OT: will need evaluated Disposition: TBD - progressive care Tele Status A total of 16 minutes were spent between the [id number] encounter, physical exam, reviewing the medical history, coordinating the patient's care, counseling/educating the patient, ordering medications/test/procedures, interpreting results and documenting clinical information in the patients electronic health record on the day of the encounter. The patient was seen and examined Patient discussed and plan of day developed from multidisciplinary rounds between Cardiothoracic Surgery (Cardiothoracic Surgeon, DEJA) and Critical Care Attending Cardiac Core Medications: ASA and Statin EF: 55% Blood Conservation: None noted in post-operative period Project Administrative Assistant: Dr. Jackson [facility] 04-29-2025 Note PHYSICAL THERAPY [facility] Initial Evaluation Name/MRN: Bright Keen ([id number]) Evaluation Date: 04/29/2025 Date of : 1970 Admission Date: 04/28/2025 5:16 AM Age: 55 y.o. Room/Bed: T1-111/T1-111 A Discharge Recommendation: Home with assist PRN, Outpatient PT (outpatient cardiac rehab) Other: TBD Assessment IMPRESSION: Patient is a 55 yo admitted due to aortic valve stenosis s/p replacement on 04/28/25. Patient is most limited by sternum pain. Patient required mod A for sit <> supine and CGA for sit <> stand transfers. Patient ambulated 30 feet using Nezzie with CGA. Patient will benefit from acute PT services to improve independence with mobility. Anticipate return home with assist PRN and outpatient cardiac rehab. Admitting Diagnosis: aortic valve stenosis s/p replacement on 04/28/25 Prognosis: good Performance Deficits /Impairments: Increased Pain, Decreased Functional Mobility, Decreased ADL status, Decreased Strength, Decreased Endurance, Decreased Balance, and Decreased High Level IADLs Decision Making: Medium Complexity Subjective RN cleared patient for PT eval. Patient awake in chair, pleasant and agreeable to therapy. Reports I think I'm ready to walk. Pain: sternum Past Medical History: Medical History[1] Past Surgical History: Surgical History[2] Admission Diagnosis: Patient Active Problem List Diagnosis Date Noted Aortic stenosis, severe 04/28/2025 Severe aortic stenosis 03/30/2025 Primary hypertension 03/30/2025 Other hyperlipidemia 03/30/2025 Stroke-like symptoms 03/04/2025 Nonrheumatic aortic valve stenosis 03/30/2025 Medical Precautions: No active isolations Proper PPE donned/doffed in accordance with facility standards. Fall Risk: [place] Fall Risk Score: 20 (Low Risk) Precautions/Restrictions: Sternal Precautions: No lifting greater than 10 lbs. Ok for modified UE precautions using Keep Your Move in the Tube technique Lines/Drains/Airways: tele, continuous pulse ox, chest tube, CVC R IJ Family/Caregiver Present: spouse Overall Cognitive Status: WNL Overall Orientation Status: Oriented x4 Social/Functional History Patient admitted from home. Lives With: Family Type of Home: single family home Home Layout: Two Level Home and 1/2 Bath on Main Floor Home Access: Level Entry Bathroom Shower/Tub: Tub/Shower Combo Toilet: Standard Home Equipment: none Homemaking Responsibilities: Independent Receives Help From: Family Active Community Director: Prior Level of Function Prior Level of ADL Function: Independent Prior Level of Mobility: Independent; Device: None Prior Level of Transfers: Independent Objective Bed Mobility Sit to supine: Mod Assist Transfers/Mobility Sit to stand: Contact Guard Stand to sit: Contact Guard From recliner, rocking technique, cues needed for sternal precautions Device(s) used: Nezzie Ambulation Assistive device(s) used: Nezzie Assist level: Contact Guard Distance (ft): 30 Quality of gait: slow scotty, steady gait, good control of Nezzi. Cues given throughout for pursed-lip breathing. O2 sats 89-92% with gaits, quickly returns to 92-94% with standing rest break and pursed-lip breathing. Vision: wears glasses for reading and and are being used during the eval Other exercises Other exercises?: Yes Other exercises 1: IS x6 reps, 1500-2000ml, good technique Outcome Measures AM-PAC How much HELP from another person do you currently need Turning from your back to your side while in a flat bed without using bedrails?: A Little Moving from lying on your back to sitting on the side of a flat bed without using bedrails?: A Little Moving to and from a bed to a chair (including a wheelchair)?: A Little Standing up from a chair using your arms (wheelchair or bedside chair)?: A Little Walking in a hospital room?: A Little Stair climbing assessed?: No AM-PAC Inpatient Mobility Raw Score (No Stairs) : 15 [facility] Score: Walked 25 ft or more (i.e. walked outside of room) Plan Pt would benefit from skilled acute PT services to address Strengthening, Gait Training, Balance Training, Self-Care/ADL Training, Functional Mobility Training, Endurance Training, Safety Education and Training, Pain Management, Stair Training, Equipment Evaluation/Education, Neuromuscular Re-Education Training, and Patient/Caregiver Training. Frequency: 5x/week for 4 weeks Barriers: Pain, Impaired balance, Lower extremity weakness, Decreased endurance, and Stairs at home Safety/Education Safety Safety Devices in place: All fall risk precautions in place, call light within reach, left in bed, nurse notified, and no alarms engaged upon entry Restraints: No Education Education Given To: patient Education Provided: PT Role, PT Goals, Plan of Care, Precautions, Transfer Training, Benefits of Increasing Activity, Breathing Techniques, and splinted cough Education Method: Verbal Barriers to (more content not included)... [facility] 04-29-2025 Consult note Associated Order (s): IP CONSULT TO CARDIAC REHAB Received referral and reviewed chart. Unable to discuss Phase II Cardiopulmonary Rehab Referral with Bright Keen at this time. Will follow to discuss program when appropriate. Patient will be contacted at home if discharged prior to discussion. [facility] 04-29-2025 Note Received referral an d reviewed chart. Unable to discuss Phase II Cardiopulmonary Rehab Referral with Bright Keen at this time. Will follow to discuss program when appropriate. Patient will be contacted at home if discharged prior to discussion. [facility] 04-28-2025 Plan of care note Problem: Pain - Adult Goal: Verbalizes/displays adequate comfort level or baseline comfort level Outcome: Not Progressing Flowsheets (Taken 04/28/20251823) Verbalizes/displays adequate comfort level or baseline comfort level: Encourage patient to monitor pain and request assistance Assess pain using appropriate pain scale Administer analgesics based on type and severity of pain and evaluate response Implement non-pharmacological measures as appropriate and evaluate response Consider cultural and social influences on pain and pain management Notify Licensed Independent Practitioner if interventions unsuccessful or patient reports new pain Problem: Knowledge Deficit Goal: Patient/family/caregiver demonstrates understanding of disease process, treatment plan, medications, and discharge instructions Outcome: Progressing Flowsheets (Taken 04/28/20251823) Patient/family/caregiver demonstrates understanding of disease process, treatment plan, medications, and discharge instructions: Provide teaching at level of understanding Provide teaching via preferred learning methods Problem: Potential for Compromised Skin Integrity Goal: Skin Integrity is Maintained or Improved Outcome: Progressing Flowsheets (Taken 04/28/2025 182) Skin integrity is maintained or improved: Assess and monitor skin integrity Identify patients at risk for skin breakdown on admission and per policy Turn patient Relieve pressure to bony prominences Avoid shearing Keep skin clean and dry Monitor patient's hygiene practices Goal: Nutritional status is improving Outcome: Progressing Flowsheets (Taken 04/28/20251823) Nutritional status is improving: Monitor and assess patient for malnutrition (ex- brittle hair, bruises, dry skin, pale skin and conjunctiva, muscle wasting, smooth red tongue, and disorientation) Monitor patient's weight and dietary intake as ordered or per policy Problem: Urinary Incontinence Goal: Perineal skin integrity is maintained or improved Outcome: Progressing Flowsheets (Taken 04/28/20251823) Perineal skin integrity is maintained or improved: Keep skin clean and dry Provide privacy when changing patient's incontinence device to maintain their dignity Problem: Safety - Adult Goal: Free from fall injury Outcome: Progressing Flowsheets (Taken 04/28/20251823) Free from fall injury: Instruct family/caregiver on patient safety Problem: Discharge Planning Goal: Discharge to home or other facility with appropriate resources Outcome: Progressing Flowsheets (Taken 04/28/20251823) Discharge to home or other facility with appropriate resources: Identify barriers to discharge with patient and caregiver Problem: Chronic Conditions and Co-morbidities Goal: Patient's chronic conditions and co-morbidity symptoms are monitored and maintained or improved Outcome: Progressing Flowsheets (Taken 04/28/20251823) Care Plan - Patient's Chronic Conditions and Co-Morbidity Symptoms are Monitored and Maintained or Improved: Monitor and assess patient's chronic conditions and comorbid symptoms for stability, deterioration, or improvement Update acute care plan with appropriate goals if chronic or comorbid symptoms are exacerbated and prevent overall improvement and discharge Problem: Pain - Adult Goal: Verbalizes/displays adequate comfort level or baseline comfort level Outcome: Not Progressing Flowsheets (Taken 04/28/20251823) Verbalizes/displays adequate comfort level or baseline comfort level: Encourage patient to monitor pain and request assistance Assess pain using appropriate pain scale Administer analgesics based on type and severity of pain and evaluate response Implement non-pharmacological measures as appropriate and evaluate response Consider cultural and social influences on pain and pain management Notify Licensed Independent Practitioner if interventions unsuccessful or patient reports new pain [facility] 04-28-2025 Note [facility] Respiratory Care Department Progress Note Spontaneous Awakening Trial Wean Screen Safety Screen Spontaneous Breathing Trial (SBT - RT) : Proceed with SBT - No exclusion criteria met (04/28/25 1442) Spontaneous Breathing Trial Weaning Start Time: 1440 (04/28/25 1442) Weaning Tidal Volume: 586 mL (04/28/25 1442) Weaning Respiratory Rate: 16 (04/28/25 1442) Spontaneous Minute Volume (MV): 10.7 (04/28/25 1442) Total RSBI: 27.3 (04/28/25 144) Spontaneous Breathing Trial (SBT - RT) Outcome: SBT Passed (PS 5/8) (04/28/25 1442) Vent Settings Vent Mode: Spontaneous (04/28/25 1500) Mandatory Type: VC+ (04/28/25 1334) Resp Rate (Set): 14 (04/28/25 1334) Vt (Set, mL): 450 mL (04/28/25 1334) FiO2 (%): 40 % (04/28/25 1500) PEEP/CPAP (cm H2O): 8 cm H20 (04/28/25 144) Inspiratory Time (sec): 0.9 sec (04/28/25 1334) Vitals Heart Rate: 72 (04/28/25 1500) Resp: 22 (04/28/25 1500) SpO2: 100 % (04/28/25 1500) Suctioning/Secretions ABG results Recent Labs 04/28/25 1321 04/28/25 1322 PHART 7.330* -- [id number] 39.3 -- PO2ART 163.7* -- [id number] 20.3* -- [id number] Ventilator Ventilator Does this patient meet criteria for termination of mechanical ventilation Yes- Notified physician below Name of physician notified via secure chat or in person : zachariah wellington (NA if patient did not meet criteria) Comments: Thank you for involving Respiratory in the care of this patient, [facility] 04-28-2025 Consult note Associated Order (s): IP CONSULT TO ENDOCRINOLOGY Department of Internal Medicine Division of Endocrinology, Diabetes, & Metabolism Endocrinology Note Patient Name: Bright Keen : 1970 AGE: 55 y.o. Room[facility]Bed: [facility] Admission Date: 04/28/2025 Visit Date: 04/28/2025 Reason for Endocrine Consult: post heart Provider/Team Requesting Consult: CTS PCP: Asher Jesus PA-C Outpt Geodetic Surveyor: No ASSESSMENT: Stress hyperglycemia AVR HLD/HTN Obesity Body mass index is 37.31 kg/m . PLAN: Continue on insulin gtt ICU goal <180 GMF goal <150 POCT BG ACHS Hypoglycemia management per protocol Carb controlled diet ANTICIPATED ENDOCRINE HOME GOING RECOMMENDATIONS: Optimized for Discharge from Endocrine standpoint: No Home Going Endocrine Rx Recommendations-- NONE Outpt Follow Up-- PCP SUBJECTIVE/HPI: CHIEF COMPLAINT: No chief complaint on file. S/p AVR BGL below- stable Insulin gtt on Pressors as needed VSS NPO Currently intubated/sedated-will clarify hx once extubated, does not appear to have DM per chart review Spoke with team No family present Type of DM: NA Onset of DM: NA Home DM Medication Regimen: NA DM control (last A1c/glucose data): Lab Results Component Value Date HGBA1C 5.4 04/21/2025 Glucose Date/Time Value Ref Range Status 04/28/2025 01:13 PM 97 70 - 100 mg/dL Final Review of Systems ROS negative except for those mentioned in HPI. OBJECTIVE: Vitals: 04/28/25 0545 04/28/25 1256 04/28/25 1315 BP: (!) 164/105 Pulse: 76 69 Resp: 19 Temp: 36.1 C (97 F) (!) 35.9 C (96.6 F) TempSrc: Tympanic Tympanic SpO2: 100% 100% Weight: 260 lb (118 kg) Height: 5' 10 (1.778 m) Physical Exam Vitals and nursing note reviewed. Constitutional: General: He is sleeping. He is not in acute distress. Appearance: He is ill-appearing. He is not toxic-appearing. Interventions: He is sedated and intubated. HENT: Head: Normocephalic. Mouth/Throat: Mouth: Mucous membranes are moist. Cardiovascular: Rate and Rhythm: Normal rate. Pulmonary: Effort: Pulmonary effort is normal. No respiratory distress. He is intubated. Abdominal: Tenderness: There is no guarding. Skin: General: Skin is warm and dry. Coloration: Skin is pale. Comments: Intact incision 24 hour intake/output: Intake/Output Summary (Last 24 hours) at 04/28/2025 1334 Last data filed at 04/28/2025 1321 Gross per 24 hour Intake 4342 ml Output 1225 ml Net 3117 ml Diet: NPO diet Medications (as per EMR): HomeMeds: Current Outpatient Medications Medication Instructions aspirin 81 mg, Oral, Daily atorvastatin (LIPITOR) 40 mg, Oral, Daily chlorhexidine (Peridex) 0.12 % solution 15 mL, Once mupirocin (Bactroban) 2 % ointment Apply liberal amount per nostril the night before surgery and then again the morning of surgery Scheduled Meds:Scheduled Meds[1] Continuous Infusions:Continuous Meds[2] PRN Meds:PRN Meds[3] Diagnostic Workup: I reviewed pertinent Laboratory results, Radiographic results, and Other Clinical Notes at the time of today's encounter. Labs: No components found for: LABA1C No components found for: EAG No results found for: NA, K, CL, CO2, BUN, CREATININE, GLUCOSE, CALCIUM Lab Results Component Value Date CHOL 177 03/05/2025 Lab Results Component Value Date TRIG 44 03/05/2025 Lab Results Component Value Date HDL 35 (L) 03/05/2025 Lab Results Component Value Date LDLCALC 133 (H) 03/05/2025 No results found for: VLDL Lab Results Component Value Date CHOLHDLRATIO 5 03/05/2025 No results found for: [id number] No results found for: TSH, Z9VELCY, K6GGLOW, THYROIDAB Radiology reportsas per the Radiologist Radiology: ECG 12 lead Result Date: 04/28/2025 Sinus rhythm Anterior infarct, old Prolonged QT interval POCT glucose meter Result Date: 04/28/2025 Performed by: [place] [address] CLIA ID: [id number] History/Other: Past Medical History: Medical History[4] Past Surgical History: Surgical History[5] Allergy(ies): Allergies[6] Family History: Family History[7] Social History: Social History[8] Portions of the information within this encounter were entered using an electronic dictation system. Best attempts were made to edit/proofread the information prior to note completion. Despite the review of information, some errors may remain. If there are questions related to the information contained within the note please contact the signing physician directly. I spent 60 minutes with the pt which involved coordination of care, medical evaluation, review of records, and/or counseling of the pt regarding his/her condition/disease state/prognosis on the date of this note. [1] acetaminophen, 1,000 mg, Oral, q8h ceFAZolin, 2,000 mg, IntraVENous, q8h [START ON 04/29/2025] chlorhexidine, , Topical, Daily chlorhexidine, 15 mL, Mouth/Throat, BID Lidocaine, 1 patch, Topical, Daily mupirocin, , Nasal, BID [START ON 04/29/2025] pantoprazole, 40 mg, IntraVENous, Daily polyethylene glycol (PEG) 3350, 17 g, Oral, Daily senna-docusate sodium, 2 tablet, Oral, Nightly sodium chloride 0.9%, 5-40 mL, IntraCATHeter, q8h sugammadex, 4 mg/kg, IntraVENous, Once [2] EPINEPHrine, 0.01-0.2 mcg/kg/min insulin regular, 0.5-50 Units/hr lactated ringers, 250 mL nitroprusside, 0.1-3 mcg/kg/min norepinephrine, 0.01-0.2 mcg/kg/min propofol, 5-50 mcg/kg/min sodium chloride, 20 mL/hr [3] PRN medications: albumin human, calcium gluconate, dextrose, dextrose, EPINEPHrine, glucagon (rDNA), glucose, ipratropium-albuterol, lactated ringers, magnesium hydroxide, magnesium sulfate OR magnesium sulfate, morphine sulfate OR morphine sulfate, nitroprusside, norepinephrine, ondansetron ODT OR ondansetron, oxyCODONE OR oxyCODONE, potassium chloride OR potassium chloride OR potassium chloride, [START ON 04/29/2025] potassium chloride CR, sodium chloride 0.9% [4] Past Medical History: Diagnosis Date Heart valve disorder Hyperlipidemia Hypertension Stroke (HCC) no residual [5] Past Surgical History: Procedure Laterality Date ARM FRACTURE SURGERY (HISTORICAL) Bilateral plates inserted both arms CARDIAC CATHETERIZATION N/A 04/06/2025 Performed by Shilpa Jackson MD at [facility] Cardiac Cath/EP Lab [6] Allergies Allergen Reactions Hydrocodone hallucinations [7] No family history on file. [8] Social History Tobacco Use Smoking status: Never Smokeless tobacco: Never Vaping Use Vaping status: Never Used Substance Use Topics Alcohol use: Not Currently Drug use: Not Currently Cosigned by Ignacio Harris at 04/28/2025 4:28 PM EDT Associated attestation - Ignacio Harris - 04/28/2025 4:28 PM EDT I discussed management with the Nurse Practitioner (DENTAL TECHNOLOGIST). I reviewed the DENTAL TECHNOLOGIST's note and agree with the documented findings and plan of care. Thank you so much for the consult. Should you have any questions please don t hesitate to contact us. [facility] 04-28-2025 Note Patient: Bright Keen Procedure Summary Date: 04/28/25 Room / Location: [address] Operating Room Anesthesia Start: 722 Anesthesia Stop: 1320 Procedures: MECHANICAL AORTIC VALVE REPLACEMENT, PATENT FORAMEN OVALE REPAIR (Chest) ECHOCARDIOGRAM, TRANSESOPHAGEAL Diagnosis: Nonrheumatic aortic (valve) stenosis Surgeons: Patricia Ulloa DO Responsible Provider: Joel Groves MD Anesthesia Type: general ASA Status: 4 Anesthesia Type: general Vitals Value Taken Time BP 110/58 04/28/25 13:24 Temp 35.9 ?C (96.6 ?F) 04/28/25 13:15 Pulse 79 04/28/25 13:21 Resp 22 04/28/25 13:21 SpO2 100 % 04/28/25 13:21 Vitals shown include unfiled device data. Anesthesia Post Evaluation Patient location during evaluation: ICU Patient participation: complete - patient cannot participate Level of consciousness: intubated and sedated Pain management: adequate Airway patency: patent Dental Injury: no Cardiovascular status: acceptable and hemodynamically stable Respiratory status: acceptable, ETT, intubated and ventilator Hydration status: acceptable Nausea/Vomiting: controlled No notable events documented. Patient can be discharged once all PACU criteria has been met. [facility] 04-28-2025 Note Patient: Bright Keen Procedure Summary Date: 04/28/25 Room / Location: [place] [address] [facility] Operating Room Anesthesia Start: 722 Anesthesia Stop: 1320 Procedures: MECHANICAL AORTIC VALVE REPLACEMENT, PATENT FORAMEN OVALE REPAIR (Chest) ECHOCARDIOGRAM, TRANSESOPHAGEAL Diagnosis: Nonrheumatic aortic (valve) stenosis Surgeons: Patricia Ulloa DO Responsible Provider: Joel Groves MD Anesthesia Type: general ASA Status: 4 Anesthesia Type: general Vitals Value Taken Time BP 110/58 04/28/25 13:22 Temp 35.9 ?C (96.6 ?F) 04/28/25 13:15 Pulse 83 04/28/25 13:20 Resp 23 04/28/25 13:20 SpO2 100 % 04/28/25 13:19 Vitals shown include unfiled device data. Anesthesia Post Evaluation Patient participation: complete - patient cannot participate Level of consciousness: sedated Pain management: adequate Airway patency: patent Two or more strategies used to mitigate risk of obstructive sleep apnea Respiratory status: invasive assisted ventilation Cardiovascular status: hemodynamically stable Hydration status: WDL PONV: none Comments: Sedated/intubated No notable events documented. Anesthesia Post Evaluation I completed my handoff to the receiving clinician during which we: 1. Identified the patient 2. Identified the responsible provider 3. Reviewed the pertinent medical history 4. Discussed the surgical course 5. Reviewed intra-op anesthesia management and issues during anesthesia 6. Set expectations for post-procedure period 7. Allowed opportunity for questions and acknowledgement of understanding. [facility] 04-28-2025 Consult note Formatting of th is note is different from the original. Images from the original note were not included. [facility]: Critical Care Consultation Note Date: 04/28/25 PATIENT NAME: Bright Keen : 1970 (55 y.o.) Reason for Consult: Critical Care & Vent Management HPI: 55 y.o. male w pmHx of severe , CHF, HTN and recent ischemic stroke was seen in OP valve clinic for surgical evaluation. Of note patient was admitted to [facility] on 03/04/25 for stroke like symptoms, with MRI revealing four tiny acute embolic infarcts in the right frontal and occipital lobes, and left parietal lobe. Pt was treated with TNK and had drastic improvement in symptoms. During further workup, a transthoracic echo was obtained, which demonstrated EF 55%, LA and RA moderately dilated, and severe aortic valve stenosis concerning for potential etiology of cryptogenic stroke, peak/mean gradients 84/53 mm Hg, LITO 1.0 cm^2. He consent and was taken to the operating room for AVR and PFO repair with Dr. Ulloa on 04/28/25 Surgery: 04/28/25: s/p AVR (#25 [facility]) PFO repair and KATY with Dr. Ulloa Interval History: 04/28/25: POD #0: Patient arrived to the unit, intubated and sedated. Surgical hand off completed below. Surgery Hand Off: Arrival Time in CTVICU: 1300 Complications/Pertinent Events: none noted Last Paralytic:1204 Medications given in route: none noted Gtts OR report Epinephrine: 0.04 Insulin: 2 Amicar: 29 Current gtts upon arrival Propofol: 20 Insulin: Amicar: 29 Devices: Epicardial wires: yes [x] no [] Blood Transfusions Intra Op: yes [x] no [] CellSaver: yes Additional Interventions/Misc during Handoff None noted Review of Systems Unable to perform ROS: Intubated Allergies: Hydrocodone Past Medical History: has a past medical history of Heart valve disorder, Hyperlipidemia, Hypertension, and Stroke (HCC). Past Surgical History: has a past surgical history that includes Cardiac catheterization (N/A, 04/06/2025) and arm fracture surgery (historical) (Bilateral). Social History: reports that he has never smoked. He has never used smokeless tobacco. He reports that he does not currently use alcohol. He reports that he does not currently use drugs. Family History: family history is not on file. Medications: Prior to Admission medications Medication Sig Start Date End Date Taking? Authorizing Provider aspirin 81 MG chewable tablet Chew 1 tablet (81 mg) daily. Do not start before March 07, 2025. 03/07/25 03/07/26 Yes Chad Holcomb MD atorvastatin (Lipitor) 40 MG tablet Take 1 tablet (40 mg) by mouth daily. Do not start before March 07, 2025. 03/07/25 03/07/26 Yes Chad Holcomb MD chlorhexidine (Peridex) 0.12 % solution Use 15 mL in the mouth or throat 1 time. Yes Historical Provider, mupirocin (Bactroban) 2 % ointment Apply liberal amount per nostril the night before surgery and then again the morning of surgery Patient taking differently: Apply liberal amount per nostril the night before surgery and then again the morning of surgery Pre op medication 04/16/25 Yes Jacek Alvarado APRN - PARKING LOT ATTENDANT Objective: BP (!) 164/105 Pulse 69 Temp (!) 35.9 C (96.6 F) (Tympanic) Resp 19 Ht 5' 10 (1.778 m) Wt 260 lb (118 kg) SpO2 100% BMI 37.31 kg/m Intake/Output Summary (Last 24 hours) at 04/28/2025 1337 Last data filed at 04/28/2025 1321 Gross per 24 hour Intake 4342 ml Output 1225 ml Net 3117 ml Physical Exam Constitutional: Interventions: He is sedated and intubated. HENT: Mouth/Throat: Comments: ETT in place Neck: Vascular: No JVD. Trachea: Trachea normal. Cardiovascular: Rate and Rhythm: Normal rate and regular rhythm. Pulses: Radial pulses are 2+ on the right side and 2+ on the left side. Heart sounds: Normal heart sounds, S1 normal and S2 normal. Comments: Mech valve heard Pulmonary: Effort: He is intubated. Breath sounds: Decreased breath sounds present. Abdominal: General: Bowel sounds are absent. Genitourinary: Comments: Matias catheter to straight drain Musculoskeletal: Right lower leg: No edema. Left lower leg: No edema. Skin: Findings: Bruising and ecchymosis present. Comments: Surgical dressing dry and intact Diagnostics: Reviewed in EMR Labs: Reviewed in EMR BMP:No results for input(s): NA, K, CL, CO2, BUN, CREATININE, CALCIUM, MG, PHOS in the last 72 hours. CBC: Recent Labs 04/28/25 1322 WBC 24.3* HGB 13.0 13.1 HCT 39.5* PLT 146 MCV 83.9 RDW 13.0 INR: No results for input(s): INR in the last 72 hours. Assessment: Severe s/p AVR mech CHF Post operative Pulm Management: Normal Post-operative Course Post-operative Atrial Fibrillation: []Yes [x] No Plan: - Sugamadex - Check CMP, CBC, ABG, VBG, Coags - Will need Nadir consult for coumadin life long therapy - 2-3 - Hemodynamic goals: CI >2.0, SBP 90-130 mmHg, MAP 60-75 - PRN Hypertension Nipride -PRN Hypotension Levophed gtt - Temp pacing wires/mode: v wies - Chest tubes: no air leak or fluctuation noted, suction - Cefazolin - surgical prophy for 5 doses total - Wean to Extubation: Arrival Time in unit: 1300 - Vent: ACVC+, TV 6ml/kg/min, rate 12, fio2 100% PEEP 8 VAP protocol: HOB >30 degrees; peridex BID - Insulin gtt; per endo/protocol - GI prophy: Protonix IV daily Critical Care time spent 25 minutes. The time involved in the performance of this care was exclusive of separately billable procedures, teaching time and treating other patients. The time was spent personally by myself for the following activities: examination of the patient, ordering and/or performing treatment, reviewing the laboratory and radiographic studies, and if applicable, ventilator management and blood gas interpretation. Patient treatment plan and plan of care discuss with Dr. Zachariah Wellington Cosigned by Jadiel Wellington DO at 04/28/2025 2:07 PM EDT Associated attestation - Jadiel Wellington DO - 04/28/2025 2:07 PM EDT I reviewed the AAP's note and agree with the documented findings and plan of care. Patient s/p AVR w/ PFO repair OR course uncomplicated Neuro: - Continue sedation for now, PRNs once extubated - had a TIA earlier this year, no residual defects noted on exam per chart review Cardio/hemodynamic - Pacer in place, [place] rate in the upper 60s, not being paced - CVP 6 - no vasoactives, cap refill is brisk Pulm/respiratory - Vent settings 14 450 100% +8 - Chest XR with NAD - Chest tubes in place GI - NPO pending extubation, Diet as tolerated once extubated - PPI /Renal - Matias in place - Electrolytes WNL ID - surgical ppx abx - no leukocytosis, no fever Endo - insulin infusion off - A1c 5.4 Heme - Cellsaver given, no transfusion needs - AVR,will need AC - SCDs Critical care time 35 minutes [facility] 04-28-2025 Note Arterial Line: Date/Time: 04/28/2025 7:20 AM An arterial line was placed Procedure performed using ultrasound guidance - Image permanently retained with wire or catheter in vein.in the pre-op for the following indication(s): continuous blood pressure monitoring and blood sampling needed. A 20 gauge (size), 1 and 3/4 inch (length), Angiocath (type) catheter was placed, into the Left radial artery, secured by tape and Tegaderm. Events: patient tolerated procedure well with no complications. Staffing Performed: [facility] 04-28-2025 Note Central Venous Line: Date/Time: 04/28/2025 7:46 AM A central venous line was placed in the Procedural for the following indication(s): Sterility preparation included the following: provider hand hygiene performed prior to central venous catheter insertion, all 5 sterile barriers used (gloves, gown, cap, mask, large sterile drape) during central venous catheter insertion, antiseptic used during central venous catheter insertion and skin prep agent completely dried prior to procedure. The patient was placed in Trendelenburg position. Right The site was prepped with Chlorhexidine. Size: 8.5 Fr Catheter type: introducer During the procedure, the following specific steps were taken: target vein identified, needle advanced into vein and blood aspirated and guidewire advanced into vein. Procedure performed using ultrasound guidance - Image permanently retained with wire or catheter in vein. Sterile gel and probe cover used in ultrasound-guided central venous catheter insertion. Intravenous verification was obtained by ultrasound and venous blood return. Post insertion care included: all ports aspirated, all ports flushed easily, guidewire removed intact, Biopatch applied, line sutured in place and dressing applied. During the procedure the patient experienced: patient tolerated procedure well with no complications. Staffing Performed: [facility] and anesthesiologist Anesthesiologist: Joel Groves MD [facility] 04-28-2025 Note Airway Date/Time: 04/28/2025 7:35 AM Reason: scheduled Airway not difficult General Information and Staff Patient location during procedure: Procedural Resident/REHABILITATION THERAPIST: Wilian Block APRN - REHABILITATION THERAPIST Performed: SRNA Patient Condition Indications for airway management: anesthesia Patient position: sniffing Sedation level: Asleep Final Airway Details Preoxygenated: yes Final airway type: endotracheal airway Successful airway: ETT Cuffed: yes Successful intubation technique: direct laryngoscopy Adjuncts used in placement: intubating stylet Endotracheal tube insertion site: oral Blade: Kelly Blade size: #4 Cormack-Lehane Classification: grade IIa - partial view of glottis Placement verified by: chest auscultation and capnometry Measured from: gums ETT to gums (cm): 22 Ventilation between attempts: BVM Number of attempts at approach: 1 Number of other approaches attempted: 0 [facility] 04-28-2025 Procedure note Cardiothoracic Surgery Operative Report Date: 04/28/25 Pre-operative Diagnosis: Severe aortic stenosis Chronic diastolic congestive heart failure--class III Patent foramen ovale Post-operative Diagnosis: Severe aortic stenosis Chronic diastolic congestive heart failure--class III Patent foramen ovale Procedure: Median sternotomy Total cardiopulmonary bypass Aortic valve replacement with 25 mm SJM [place] mechanical valve (serial # [id number]) Closure of patent foramen ovale Intraoperative transesophageal echocardiogram Surgeon: Emily Ulloa DO Investigation Division Lieutenant(s): [x] Duane Call [] Enrique Prado [] Jeff Donovan [] Jeff Alvarado [] Other Anesthesia: General--Dr. Jacob Groves Thermal Spray Operator: Jessica Ross Total IV fluids: See anesthesia and perfusion record Blood Transfusion?: None Drains/wires: Chest tube x 1; ventricular pacing wires Complications: None INDICATIONS FOR SURGERY: This is a 55 y.o. year-old male who was found to have severe aortic stenosis after presenting for an acute ischemic stroke. He underwent complete workup through the structural heart clinic. Surgical consultation was obtained the the above procedure was offered. The risks, benefits, and alternatives were explained in detail and consent was obtained for the procedure. Findings: Preoperative KATY showed severe aortic stenosis and a patent foramen ovale. I discussed this finding with cardiology and another surgeon, both of whom agreed that repair was indicated. 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 It was replaced with a 25 mm prosthesis which was well-seated and functioned properly. The PFO was about 5 mm in diameter at the top of the fossa ovalis. It was closed primarily. The patient was weaned from cardiopulmonary bypass with minimal inotropic support needed. Myocardial function is preserved on KATY. The valve is well-functioning with no paravalvular leak. The PFO has no flow across it. We spent considerable time de-airing the heart while coming off bypass.Cardiopulmonary bypass time 155 minutes. Aortic cross-clamp time 121 minutes. DESCRIPTION OF PROCEDURE: The patient was brought to the operative suite and placed in supine position on the operative table. General anesthesia was administered. All appropriate lines and tubes were placed. The torso and lower extremities were then prepped and draped in the usual sterile fashion. The office assistant receptionist was present for the entire procedure from start to finish and helped with all portions of it. A standard median sternotomy incision was made. The sternum was divided in the midline and hemostasis was achieved. A standard retractor was then placed. The thymus was divided in the midline and the pericardium was opened. I dissected circumferentially around the superior and inferior vena cavae. Full dose heparin was then given. I then cannulated for bypass. A double pursestring suture was placed into the ascending aorta. An 8 mm arterial cannula was placed through this and secured. Another pursestring was placed in the superior vena cava. A right angle venous cannula was placed through this and secured. Another pursestring was placed in the lower right atrium. An inferior vena cava cannula was placed through this and secured. Another pursestring was placed in the right atrium. A retrograde cardioplegia cannula was placed through this into the coronary sinus and secured. An antegrade cardioplegia cannula was placed into the ascending aorta. We then went on total cardiopulmonary bypass. There was excellent decompression of all 4 cardiac chambers. The aortic root was dissected enough to provide exposure. An aortic cross-clamp was then placed. Cold blood antegrade followed by retrograde cardioplegia was administered with excellent diastolic arrest of the heart. Cardioplegia was readministered periodically throughout the procedure as indicated. A pledgeted stitch was placed in the right upper pulmonary vein and a left ventricular vent was passed through this across the mitral valve into the left ventricle. An oblique aortotomy was then made just above the sinotubular junction. Both coronary ostia were very high riding nearly at the level of the sinotubular junction. The valve was examined and found to be bicuspid with fusion between the right and non coronary cusps. The valve was excised sharply around the annulus which was very calcified. The annulus was debrided of all of its calcium. I then sized the valve annulus to fit a 25 mm prosthesis. Non-pledgeted 2-0 Ethibond stitches were placed in a mattress fashion in a subannular position circumferentially around the annulus. The stitches were then each passed through the sewing ring of the valve. The valve was lowered into position and appeared to be well-seated. The valve was secured in place using CorKnots. The leaflets were well-functioning once it was in place. The patient was rewarmed. The aortotomy was then closed using a double layer of running 4-0 Prolene suture. I then turned attention to the right atrium. The caval snares were taken down to isolate the atrium from blood flow. An oblique atriotomy was made. I examined the fossa ovalis and easily found the patent foramen ovale which is about 5 to 6 mm in diameter. It was closed primarily using a 4-0 Prolene suture in a [id number] fashion. It appeared to be watertight once it was closed. The atriotomy was then closed with a double layer of running 4-0 Prolene suture. The cable snares were taken up. A shot of warm straight blood was administered retrograde followed by antegrade. The patient was placed in Trendelenburg position and several Valsalva breaths were given to de-air the heart. The aortic cross-clamp was then removed. I continued venting through the aortic root as well as the left ventricle. Temporary ventricular pacing wires were placed. There is spontaneous return of cardiac activity. I then began to wean from bypass. The heart was volume loaded and began to eject. The pump flows are gradually reduced and the lungs were ventilated. As I weaned from bypass the KATY was examined and there was significant amounts of air inside the left heart. This constrained as to stay on bypass for much longer than expected. Once the air had diminished I continued weaning from bypass. The left ventricular vent was removed and the site was secured. I also discontinued the aortic root vent. I was eventually able to wean completely off bypass with minimal inotropic support needed. Once off bypass the superior vena cava cannula was removed. KATY showed there to be preserved ventricular function. The valve was functioning well with no paravalvular leak. There was also no flow across the atrial septum. Protamine was tested. The inferior vena cava cannula was removed and the site was secured. Once half the protamine was given the arterial cannula was removed and the site was secured. Hemostasis was assured at each of the surgical sites. A single chest tube was placed in the mediastinum. I then turned attention to closure. The pericardium was approximated with several interrupted stitches. The sternum was approximated with heavy steel wires in a [id number] fashion. The soft tissues were then closed in layers with running observable sutures. The procedure was then terminated. At the end of the procedure all the sponge and sharp counts were correct. Disposition: The patient having tolerated the procedure well was taken in stable condition to the [facility]. He will be monitored closely as to outputs and hemodynamics. Emily Ulloa DO FACS Cardiothoracic Surgery [facility] 04-28-2025 Attending History and physical note H&P reviewed. The patient was examined and there are no changes to the H&P. Will proceed with mechanical AVR today. Emily Ulloa DO [facility] Cardiothoracic Surgery Source Note - Patricia Ulloa DO - 04/15/2025 9:45 AM EDT Images from the original note were not included. [facility] CARDIOVASCULAR & THORACIC SURGERY [address] [facility] [address] Dept: [phone] Dept Loc: [phone] Visit type: New Reason for Visit: Aortic stenosis Assessment: 1. Severe aortic stenosis 2. Chronic diastolic (congestive) heart failure (HCC) Recommendations: He will undergo surgical aortic valve replacement with a mechanical valve. This procedure was explained to him in detail. The risks were outlined in terms of the STS risk calculator. The mild LAD stenosis does not need to be addressed surgically as it is nonobstructive and the LAD does not even reach the apex. All questions were answered and he is willing to proceed. STS Risk Calculator Procedure Type: CABG + AVR Perioperative Outcome Estimate % Operative Mortality 1.75% Morbidity & Mortality 8.97% Stroke 2.18% Renal Failure 1.24% Reoperation 2.85% Prolonged Ventilation 4.42% Deep Sternal Wound Infection 0.182% Long Hospital Stay (>14 days) 6.16% Short Hospital Stay (<6 days)* 35.8% History of Present Illness Bright Keen is a 55 y.o. male was referred to Valve Clinic while inpatient for aortic valve stenosis. Per note, patient was admitted to [facility] on 03/04/25 for stroke like symptoms, with MRI revealing four tiny acute embolic infarcts in the right frontal and occipital lobes, and left parietal lobe. Pt was treated with TNK and had drastic improvement in symptoms. During further workup, a transthoracic echo was obtained, which demonstrated EF 55%, LA and RA moderately dilated, and severe aortic valve stenosis concerning for potential etiology of cryptogenic stroke, peak/mean gradients 84/53 mm Hg, LITO 1.0 cm^2. Patient reported pretty limiting PADRON that had worsened over the previous 4-6 weeks, cardiology was consulted and elected to manage him outpatient. Patient was cleared for discharge on 03/06/25 with referral to Valve Clinic and Cryptogenic Stroke Program. Pt was evaluated in Valve Clinic on 03/30/25. Dr. Ulloa Note 03/30/25 Assessment/Plan: Severe symptomatic aortic stenosis--warrants intervention Chronic diastolic congestive heart failure Hypertension Recent ischemic stroke. Recommendations: He will require aortic valve intervention. This will likely be best achieved with a surgical AVR using a mechanical heart valve. Prior to surgery he will undergo left heart catheterization to evaluate his coronary arteries. He will then come see me in follow up for scheduling. Pt underwent heart catheterization on 04/06/25 which demonstrated LAD with a 50% lesion just after large D1 and 30% disease of the D1. Pt is here now for an evaluation. He remains short of breath with activity and complains of being tired all the time. He has cut back on his activity level because of this. He denies chest pain. He does get mild leg edema if he is on his feet a lot. There is no syncope or orthopnea. His heart cath only shows mild stenosis of his LAD, but it is nonobstructive in my view and does not require bypass. Past Medical History Medical History[1] Past Surgical History Surgical History[2] Family History Family History[3] Social History Marital status: Work history: [employer] status: Never Served Social History[4] Allergies Allergies[5] Medications Current Medications[6] Review of Systems Review of Systems Constitutional: Positive for fatigue. Respiratory: Positive for shortness of breath (on exertion). All other systems reviewed and are negative. Physical Exam Vitals: BP (!) 142/90 (BP Location: Left arm, Patient Position: Sitting, BP Cuff Size: Large adult) Pulse 64 Ht 5' 10 (1.778 m) Wt 261 lb (118 kg) BMI 37.45 kg/m Constitutional: General: Not in acute distress. Appearance: Normal appearance. Not toxic-appearing. Ear, nose, mouth: Bilateral external ear and nose normal. Nose: Nose normal. Mouth: Appearance normal, no bleeding, moist mucus membranes Eyes: General: No scleral icterus. No discharge from bilateral eyes Extraocular Movements: Extraocular movements intact. Pupils equal and reactive bilaterally Cardiovascular: Heart: Regular rhythm. Harsh 4/6 systolic murmur. A rhythm monitor is in place. Vascular: No carotid bruit. Edema: mild edema in bilateral lower extremities Pulmonary: Effort: Pulmonary effort is normal. No respiratory distress. Breath sounds: Normal breath sounds. No wheezing. Chest wall: No tenderness. Abdominal: Appearance: Not distended Palpations: There is no abdominal tenderness, no guarding. Musculoskeletal: Bilateral upper and lower extremities: Normal range of motion, no deformity Head: Normocephalic and atraumatic. Neck: Normal range of motion and neck supple. No muscular tenderness. Lymphadenopathy: Cervical: No cervical adenopathy. Skin: General: Skin is warm and dry. Coloration: Skin is not jaundiced. Neurological: General: No focal deficit present. Cranial Nerves: No obvious cranial nerve deficit. Psychiatric: Mood and Affect: Mood normal. Thought Content: Thought content normal. Patient has good judgement and insight Mental Status: Alert and oriented to place, person, and time. Labs Auto WBC Date/Time Value Ref Range Status 03/06/2025 06:05 AM 6.2 3.6 - 10.7 10*3/uL Final 03/05/2025 12:13 AM 8.1 3.6 - 10.7 10*3/uL Final Hemoglobin Date/Time Value Ref Range Status 03/06/2025 06:05 AM 13.6 13.0 - 18.0 g/dL Final 03/05/2025 12:13 AM 13.3 13.0 - 18.0 g/dL Final Platelets Date/Time Value Ref Range Status 03/06/2025 06:05 AM 212 140 - 440 10*3/uL Final 03/05/2025 12:13 AM 233 140 - 440 10*3/uL Final SODIUM Date/Time Value Ref Range Status 03/06/2025 06:05 AM 137 136 - 145 mmol/L Final 03/05/2025 12:13 AM 138 136 - 145 mmol/L Final POTASSIUM Date/Time Value Ref Range Status 03/06/2025 06:05 AM 4.3 3.5 - 5.1 mmol/L Final Comment: Plasma potassium values may be up to 0.5 mmol/L lower than serum values. 03/05/2025 12:13 AM 4.0 3.5 - 5.1 mmol/L Final Comment: Plasma potassium values may be up to 0.5 mmol/L lower than serum values. CREATININE Date/Time Value Ref Range Status 03/06/2025 06:05 AM 0.76 0.72 - 1.25 mg/dL Final 03/05/2025 12:13 AM 0.86 0.72 - 1.25 mg/dL Final Imaging Heart Catheterization 04/06/25 Findings: Coronary Anatomy: Left main with minimal CAD LAD with a 50% lesion just after large D1 and 30% disease of the D1 Circumflex with mild CAD RCA with minimal CAD, very large, supplies the apex Diagnostic Dominance: Right Left Main The vessel exhibits minimal luminal irregularities. Left Anterior Descending Mid LAD lesion, 50% stenosed. First Diagonal Branch 1st Diag lesion, 30% stenosed. Left Circumflex First Obtuse Marginal Branch The vessel exhibits minimal luminal irregularities. Right Coronary Artery The vessel exhibits minimal luminal irregularities. Intervention No interventions have been documented. TTE 03/05/25 Interpretation Summary Left Ventricle: Left ventricle size is normal. Moderately increased wall thickness. Normal left ventricular systolic function. The EF by visual approximation is 55%. Global longitudinal strain is -14.7%. Normal wall motion. Right Ventricle: Right ventricle size is normal. Normal systolic function. Aortic Valve: Trileaflet. Moderately thickened cusps. Severely calcified cusps. Trace regurgitation. Severe stenosis of the aortic valve. AV mean gradient is 53 mmHg. AV peak gradient is 84 mmHg. AV peak velocity is 4.6 m/s. LVOT:AV VTI Index is 0.25. AV area by continuity VTI is 1.0 cm2. Left Atrium: Left atrium is moderately dilated. Right Atrium: Right atrium is moderately dilated. Patient Care Team: PCP: Asher Jesus PA-C Cardiology: MD Emily White DO [facility] Cardiothoracic Surgery [1] Past Medical History: Diagnosis Date Hyperlipidemia Hypertension Stroke (HCC) [2] Past Surgical History: Procedure Laterality Date CARDIAC CATHETERIZATION N/A 04/06/2025 Performed by Shilpa Jackson MD at [facility] Cardiac Cath/EP Lab [3] No family history on file. [4] Social History Tobacco Use Smoking status: Never Smokeless tobacco: Never Substance Use Topics Alcohol use: Not Currently Drug use: Not Currently [5] No Known Allergies [6] Current Outpatient Medications: aspirin 81 MG chewable tablet, Chew 1 tablet (81 mg) daily. Do not start before March 07, 2025., Disp: 30 tablet, Rfl: 11 atorvastatin (Lipitor) 40 MG tablet, Take 1 tablet (40 mg) by mouth daily. Do not start before March 07, 2025., Disp: 30 tablet, Rfl: 11 [facility] 04-28-2025 History and physical note H&P reviewed. The patient was examined and there are no changes to the H&P. Will proceed with mechanical AVR today. Emily Ulloa DO [facility] Cardiothoracic Surgery Source Note - Patricia Ulloa DO - 04/15/2025 9:45 AM EDT Images from the original note were not included. [facility] CARDIOVASCULAR & THORACIC SURGERY [address] [facility] [address] Dept: [phone] Dept Loc: [phone] Visit type: New Reason for Visit: Aortic stenosis Assessment: 1. Severe aortic stenosis 2. Chronic diastolic (congestive) heart failure (HCC) Recommendations: He will undergo surgical aortic valve replacement with a mechanical valve. This procedure was explained to him in detail. The risks were outlined in terms of the STS risk calculator. The mild LAD stenosis does not need to be addressed surgically as it is nonobstructive and the LAD does not even reach the apex. All questions were answered and he is willing to proceed. STS Risk Calculator Procedure Type: CABG + AVR Perioperative Outcome Estimate % Operative Mortality 1.75% Morbidity & Mortality 8.97% Stroke 2.18% Renal Failure 1.24% Reoperation 2.85% Prolonged Ventilation 4.42% Deep Sternal Wound Infection 0.182% Long Hospital Stay (>14 days) 6.16% Short Hospital Stay (<6 days)* 35.8% History of Present Illness Bright Keen is a 55 y.o. male was referred to Valve Clinic while inpatient for aortic valve stenosis. Per note, patient was admitted to [facility] on 03/04/25 for stroke like symptoms, with MRI revealing four tiny acute embolic infarcts in the right frontal and occipital lobes, and left parietal lobe. Pt was treated with TNK and had drastic improvement in symptoms. During further workup, a transthoracic echo was obtained, which demonstrated EF 55%, LA and RA moderately dilated, and severe aortic valve stenosis concerning for potential etiology of cryptogenic stroke, peak/mean gradients 84/53 mm Hg, LITO 1.0 cm^2. Patient reported pretty limiting PARDON that had worsened over the previous 4-6 weeks, cardiology was consulted and elected to manage him outpatient. Patient was cleared for discharge on 03/06/25 with referral to Valve Clinic and Cryptogenic Stroke Program. Pt was evaluated in Valve Clinic on 03/30/25. Dr. Ulloa Note 03/30/25 Assessment/Plan: Severe symptomatic aortic stenosis--warrants intervention Chronic diastolic congestive heart failure Hypertension Recent ischemic stroke. Recommendations: He will require aortic valve intervention. This will likely be best achieved with a surgical AVR using a mechanical heart valve. Prior to surgery he will undergo left heart catheterization to evaluate his coronary arteries. He will then come see me in follow up for scheduling. Pt underwent heart catheterization on 04/06/25 which demonstrated LAD with a 50% lesion just after large D1 and 30% disease of the D1. Pt is here now for an evaluation. He remains short of breath with activity and complains of being tired all the time. He has cut back on his activity level because of this. He denies chest pain. He does get mild leg edema if he is on his feet a lot. There is no syncope or orthopnea. His heart cath only shows mild stenosis of his LAD, but it is nonobstructive in my view and does not require bypass. Past Medical History Medical History[1] Past Surgical History Surgical History[2] Family History Family History[3] Social History Marital status: Work history: [employer] status: Never Served Social History[4] Allergies Allergies[5] Medications Current Medications[6] Review of Systems Review of Systems Constitutional: Positive for fatigue. Respiratory: Positive for shortness of breath (on exertion). All other systems reviewed and are negative. Physical Exam Vitals: BP (!) 142/90 (BP Location: Left arm, Patient Position: Sitting, BP Cuff Size: Large adult) Pulse 64 Ht 5' 10 (1.778 m) Wt 261 lb (118 kg) BMI 37.45 kg/m Constitutional: General: Not in acute distress. Appearance: Normal appearance. Not toxic-appearing. Ear, nose, mouth: Bilateral external ear and nose normal. Nose: Nose normal. Mouth: Appearance normal, no bleeding, moist mucus membranes Eyes: General: No scleral icterus. No discharge from bilateral eyes Extraocular Movements: Extraocular movements intact. Pupils equal and reactive bilaterally Cardiovascular: Heart: Regular rhythm. Harsh 4/6 systolic murmur. A rhythm monitor is in place. Vascular: No carotid bruit. Edema: mild edema in bilateral lower extremities Pulmonary: Effort: Pulmonary effort is normal. No respiratory distress. Breath sounds: Normal breath sounds. No wheezing. Chest wall: No tenderness. Abdominal: Appearance: Not distended Palpations: There is no abdominal tenderness, no guarding. Musculoskeletal: Bilateral upper and lower extremities: Normal range of motion, no deformity Head: Normocephalic and atraumatic. Neck: Normal range of motion and neck supple. No muscular tenderness. Lymphadenopathy: Cervical: No cervical adenopathy. Skin: General: Skin is warm and dry. Coloration: Skin is not jaundiced. Neurological: General: No focal deficit present. Cranial Nerves: No obvious cranial nerve deficit. Psychiatric: Mood and Affect: Mood normal. Thought Content: Thought content normal. Patient has good judgement and insight Mental Status: Alert and oriented to place, person, and time. Labs Auto WBC Date/Time Value Ref Range Status 03/06/2025 06:05 AM 6.2 3.6 - 10.7 10*3/uL Final 03/05/2025 12:13 AM 8.1 3.6 - 10.7 10*3/uL Final Hemoglobin Date/Time Value Ref Range Status 03/06/2025 06:05 AM 13.6 13.0 - 18.0 g/dL Final 03/05/2025 12:13 AM 13.3 13.0 - 18.0 g/dL Final Platelets Date/Time Value Ref Range Status 03/06/2025 06:05 AM 212 140 - 440 10*3/uL Final 03/05/2025 12:13 AM 233 140 - 440 10*3/uL Final SODIUM Date/Time Value Ref Range Status 03/06/2025 06:05 AM 137 136 - 145 mmol/L Final 03/05/2025 12:13 AM 138 136 - 145 mmol/L Final POTASSIUM Date/Time Value Ref Range Status 03/06/2025 06:05 AM 4.3 3.5 - 5.1 mmol/L Final Comment: Plasma potassium values may be up to 0.5 mmol/L lower than serum values. 03/05/2025 12:13 AM 4.0 3.5 - 5.1 mmol/L Final Comment: Plasma potassium values may be up to 0.5 mmol/L lower than serum values. CREATININE Date/Time Value Ref Range Status 03/06/2025 06:05 AM 0.76 0.72 - 1.25 mg/dL Final 03/05/2025 12:13 AM 0.86 0.72 - 1.25 mg/dL Final Imaging Heart Catheterization 04/06/25 Findings: Coronary Anatomy: Left main with minimal CAD LAD with a 50% lesion just after large D1 and 30% disease of the D1 Circumflex with mild CAD RCA with minimal CAD, very large, supplies the apex Diagnostic Dominance: Right Left Main The vessel exhibits minimal luminal irregularities. Left Anterior Descending Mid LAD lesion, 50% stenosed. First Diagonal Branch 1st Diag lesion, 30% stenosed. Left Circumflex First Obtuse Marginal Branch The vessel exhibits minimal luminal irregularities. Right Coronary Artery The vessel exhibits minimal luminal irregularities. Intervention No interventions have been documented. TTE 03/05/25 Interpretation Summary Left Ventricle: Left ventricle size is normal. Moderately increased wall thickness. Normal left ventricular systolic function. The EF by visual approximation is 55%. Global longitudinal strain is -14.7%. Normal wall motion. Right Ventricle: Right ventricle size is normal. Normal systolic function. Aortic Valve: Trileaflet. Moderately thickened cusps. Severely calcified cusps. Trace regurgitation. Severe stenosis of the aortic valve. AV mean gradient is 53 mmHg. AV peak gradient is 84 mmHg. AV peak velocity is 4.6 m/s. LVOT:AV VTI Index is 0.25. AV area by continuity VTI is 1.0 cm2. Left Atrium: Left atrium is moderately dilated. Right Atrium: Right atrium is moderately dilated. Patient Care Team: PCP: Asher Jesus PA-C Cardiology: MD Emily White DO [facility] Cardiothoracic Surgery [1] Past Medical History: Diagnosis Date Hyperlipidemia Hypertension Stroke (HCC) [2] Past Surgical History: Procedure Laterality Date CARDIAC CATHETERIZATION N/A 04/06/2025 Performed by Shilpa Jackson MD at [facility] Cardiac Cath/EP Lab [3] No family history on file. [4] Social History Tobacco Use Smoking status: Never Smokeless tobacco: Never Substance Use Topics Alcohol use: Not Currently Drug use: Not Currently [5] No Known Allergies [6] Current Outpatient Medications: aspirin 81 MG chewable tablet, Chew 1 tablet (81 mg) daily. Do not start before March 07, 2025., Disp: 30 tablet, Rfl: 11 atorvastatin (Lipitor) 40 MG tablet, Take 1 tablet (40 mg) by mouth daily. Do not start before March 07, 2025., Disp: 30 tablet, Rfl: 11 documented in this encounter [facility] 04-28-2025 Note H&P reviewed. The pa josh was examined and there are no changes to the H&P. Will proceed with mechanical AVR today. Emily Ulloa DO [facility] Cardiothoracic Surgery [facility] 04-21-2025 Note Patient: Bright Keen Procedure Information Date/Time: 04/28/25 0700 Procedures: MECHANICAL AORTIC VALVE REPLACEMENT (Chest) ECHOCARDIOGRAM, TRANSESOPHAGEAL Location: [facility] OR [address] [place] [address] Operating Room Surgeons: Patricia Ulloa, DO Relevant Problems Anesthesia (within normal limits) Cardio (+) Aortic stenosis, severe (+) Nonrheumatic aortic valve stenosis (+) Other hyperlipidemia (+) Primary hypertension (+) Severe aortic stenosis Past Medical History: Past Medical History: No date: Heart valve disorder No date: Hyperlipidemia No date: Hypertension No date: Stroke (HCC) Comment: no residual Past Surgical History: Past Surgical History: No date: ARM FRACTURE SURGERY (HISTORICAL); Bilateral Comment: plates inserted both arms 04/06/2025: CARDIAC CATHETERIZATION; N/A Comment: Performed by Shilpa Jackson MD at [facility] Cardiac Cath/EP Lab Social History: TOBACCO: reports that he has never smoked. He has never used smokeless tobacco. ETOH: reports that he does not currently use alcohol. Social History Substance and Sexual Activity Drug Use Not Currently Family History: Family History[1] Screening: unknown Clinical information reviewed: Tobacco Allergies Meds Med Hx Surg Hx Fam Hx Soc Hx Physical Exam Airway Mallampati: III TM distance: >3 FB Neck ROM: full Mouth Open: normalendotracheal tube not in place Cardiovascular Dental (+) Missing Pulmonary Abdominal Anesthesia Plan patient is NPO appropriate Any family history or previous problems with anesthesia no ASA 4 general Any family history or previous problems with anesthesia no The patient is not a current smoker. Anesthetic plan and risks discussed with patient. JAYESH Screening Labs: Lab Results Component Value Date WBC 6.2 03/06/2025 HGB 13.6 03/06/2025 HCT 40.5 03/06/2025 MCV 83.5 03/06/2025 PLT 212 03/06/2025 Lab Results Component Value Date NA 137 03/06/2025 K 4.3 03/06/2025 CL 111 (H) 03/06/2025 CO2 22 03/06/2025 BUN 13 03/06/2025 CREATININE 0.76 03/06/2025 GLUCOSE 92 03/06/2025 CALCIUM 8.5 03/06/2025 PROT 6.8 03/04/2025 ALKPHOS 45 03/04/2025 AST 30 03/04/2025 ALT 30 03/04/2025 EGFR >90.0 03/06/2025 No echocardiogram results found for the past 14 days 03/30/25 ECG 12-LEAD 04/13/2025 12:35 PM (Final) Narrative Sinus Rhythm WITHIN NORMAL LIMITS Signed by: Shilpa Jackson MD on 04/13/2025 12:35 PM Equipment Requests: Additional Equipment Requests Blood Equipment: warmer Vascular Equipment: central line kit, arterial line kit, triple transducer, Heart Setup and 2nd IV Additional Equipment: ultrasound, Transport Vent, Pacer Box and Cerebral Pulse Ox/ O3 [1] No family history on file. [facility] 04-21-2025 Note Comprehensive Pre [place] rgical History and Physical ? Name: Bright Keen : 1970 (Age-55 y.o.) Date of Service: Pt seen/examined on 04/21/2025 Procedure Information Date/Time: 04/28/25 0700 Procedures: MECHANICAL AORTIC VALVE REPLACEMENT (Chest) ECHOCARDIOGRAM, TRANSESOPHAGEAL Location: [address] Operating Room Surgeons: Patricia Ulloa DO Chief Complaint: Nonrheumatic aortic (valve) stenosis [I35.0] ASSESSMENT/PLAN: Patient is considered low/intermediate risk for this high risk procedure/surgery () with no reducible risk factors. Based on the above evaluation, the benefits of the planned procedure likely exceed the risks. The patient is medically optimized to proceed with the planned procedure without any further cardiopulmonary testing. 1) Nonrheumatic aortic (valve) stenosis [I35.0] - Managed per surgery - Orders per PAT Protocol: A1C, CBC, CMP, T&S - 2 units, PT/INR, PTT, EKG, CXR - METS < 4, denies CP but has SOB with exertion 2) CAD (coronary artery disease) Hyperlipidemia - MEDS: atorvastatin, ASA 81mg - Follows with Dr. Jackson for cardiology - History of stents No. 3) TIA - dx 03/2025 - no recurrence of symptoms - no deficits - no PFO on echo Visit Type: Pre-Admission Testing Visit Labs Ordered: YES - PER PAT PROTOCOL Sleep Referral Ordered: NO - NEGATIVE SCREEN PER SLEEP REFERRAL PROTOCOL Total time spent (which include face to face and non face to face encounters) : 45 minutes Toxic drug monitoring/narrow therapeutic index drug monitoring : # Drug name : NA # Route administered : NA # Method of monitoring : NA PAT Protocol referenced includes: 1. Anesthesia Lab Protocol Orders 2. Perioperative Cardiovascular Risk Assessment 3. Anesthesia Assessment 4. Pain Assessment and Acute Pain Service Consult (if appropriate) 5. Medical Clearance/Consult from Internal Medicine (IMS) 6. Shower/Wash Order (for designated surgeries) 7. JAYESH Screen and Sleep Clinic Referral (if appropriate) History Of Present Illness: 55 y.o. male who we are asked to see/evaluate by [facility] PAT 03 for pre-operative evaluation prior to ? Case: [id number] Date/Time: 04/28/25 0700 Procedures: MECHANICAL AORTIC VALVE REPLACEMENT (Chest) [90535 CPT(R)] ECHOCARDIOGRAM, TRANSESOPHAGEAL [60431 CPT(R)] Anesthesia type: General From last office visit with Dr. Ulloa on 04/15/25 : Bright Keen is a 55 y.o. male was referred to Valve Clinic while inpatient for aortic valve stenosis. Per note, patient was admitted to [facility] on 03/04/25 for stroke like symptoms, with MRI revealing four tiny acute embolic infarcts in the right frontal and occipital lobes, and left parietal lobe. Pt was treated with TNK and had drastic improvement in symptoms. During further workup, a transthoracic echo was obtained, which demonstrated EF 55%, LA and RA moderately dilated, and severe aortic valve stenosis concerning for potential etiology of cryptogenic stroke, peak/mean gradients 84/53 mm Hg, LITO 1.0 cm^2. Patient reported pretty limiting PADRON that had worsened over the previous 4-6 weeks, cardiology was consulted and elected to manage him outpatient. Patient was cleared for discharge on 03/06/25 with referral to Valve Clinic and Cryptogenic Stroke Program. Pt was evaluated in Valve Clinic on 03/30/25. Dr. Ulloa Note 03/30/25 Assessment/Plan: Severe symptomatic aortic stenosis--warrants intervention Chronic diastolic congestive heart failure Hypertension Recent ischemic stroke. Recommendations: He will require aortic valve intervention. This will likely be best achieved with a surgical AVR using a mechanical heart valve. Prior to surgery he will undergo left heart catheterization to evaluate his coronary arteries. He will then come see me in follow up for scheduling. Pt underwent heart catheterization on 04/06/25 which demonstrated LAD with a 50% lesion just after large D1 and 30% disease of the D1. Pt is here now for an evaluation. He remains short of breath with activity and complains of being tired all the time. He has cut back on his activity level because of this. He denies chest pain. He does get mild leg edema if he is on his feet a lot. There is no syncope or orthopnea. His heart cath only shows mild stenosis of his LAD, but it is nonobstructive in my view and does not require bypass. Pt has no new complaints today. No recent illnesses. Denies fever, chills, cough, CP, edema, orthopnea, PND, dizziness, syncope or near syncope. He does have SOB with exertion. Past Medical History: Past Medical History: No date: Heart valve disorder No date: Hyperlipidemia No date: Hypertension No date: Stroke (HCC) Comment: no residual Past Surgical History: Past Surgical History: No date: ARM FRACTURE SURGERY (HISTORICAL); Bilateral Comment: plates inserted b (more content not included)... [facility] 04-20-2025 History of Presen t illness Narrative [facility] Anticoagulation Management Service ([facility]) Anticoagulation Clinic [address] [place] [address], [address], [place] [address] Pre-surgical warfarin education Jose BENTLEY Bright (1970) was called for new start warfarin education prior to valve surgery. Pt was referred by Dr. Ulloa. Pt is being seen by [facility] for warfarin education prior to anticipated valve surgery and to identify any potential barriers to anticoagulation - Planned surgery: mechanical aortic valve. - Anticipated duration of warfarin therapy: lifelong - Date of surgery: 04/28/25 PCP: Asher Jesus PA-C Project Administrative Assistant: none currently, will establish with one after surgery Cardiothoracic Surgeon: Dr. Ulloa Medication Adherence - Patient currently takes other daily medications: Yes - Patient has previously taken an anticoagulant: No - Patient has prescription insurance coverage: No - Patient has difficulty affording medications: No - Number of medication doses missed in an average week: never - Does anyone help patient with medications: yes Transportation and Housing - Patient has reliable form of transportation for appointments: Yes - Current living situation: home with family - Distance of home from [facility] or PCP office: lives about 4-5 miles from PCP office and 5-6 miles from a hospital. Discussed that we can manage initially (he thinks home care will be ordered so we can utilize that as needed and also schedule visits in [place] when he is seeing CTS for follow-ups) and eventually will transition to PCP for management. - Patient support system: strong support Substance Use - Typical alcohol use: no - Typical tobacco use: non-smoker - Other substance use: No - History of falls: none Food Security and Vitamin K consumption - Patient has difficulty obtaining or affording food: No - Typical Vitamin K consumption: likes to eat vitamin K foods, encouraged consistency - Protein drink consumption: none Reliable form of communication - Patient has working cell phone or reliable form of communication: Has an office phone where he can be reached about half the time [phone] - Interested in home INR testing in the future: n/a- will likely transition to PCP for management after acute post-op period Concern for low health literacy: No Review of Systems Objective There were no vitals filed for this visit. Assessment Lab Results Component Value Date INR 1.0 03/04/2025 Plan Specifically Bright was educated on the indication, risks of bleeding, s/s thromboses, when to seek medical attention, medication interactions, dietary/lifestyle considerations, risks with surgery, monitoring, and importance of adherence. Pt was educated on the effects of vitamin K containing foods and the importance of consistency was stressed. Pt was also advised to avoid large amounts of alcohol while on warfarin but he does not use alcohol or tobacco. Bright was instructed to notify [facility] of any unusual bruising or active/uncontrollable bleeding, medication changes within 24 hours, missed doses, dietary changes, illnesses or hospitalizations, and upcoming surgeries. The patient was instructed to notify all other physicians and pharmacists know that warfarin was started as a double-check against drug interactions. Patient care coordination completed: N/A Positive ROS findings are: N/A Patient given written instructions. Patient expressed understanding utilizing the teach back method. Discharged ambulatory in no apparent distress. Time spent 20 Minutes Jenae Delcid RPh documented in this encounter [facility] 04-19-2025 Telephone encounter Note I called patients PCP's office and spoke with Bianca to see if they can manage patients INRs post op. She stated that they can manage but usually the surgeons wait till patients are stable before they take over. I explained that we will probably be able to do that as well. We will wait till after surgery to see if patient gets a home care agency and go from there. [facility] 04-19-2025 Miscellaneous Notes I called patients PCP's office and spoke with Bianca to see if they can manage patients INRs post op. She stated that they can manage but usually the surgeons wait till patients are stable before they take over. I explained that we will probably be able to do that as well. We will wait till after surgery to see if patient gets a home care agency and go from there. Patients returned my call. They live over an hour away. I was trying to coordinate appts with Pre-Admission Testing but that appt is on Saturday which we are closed. I staffed with Patricia Emanuel, and she stated that we can do education over the phone. Unfortunately, they don't have a phone in their home, so they will call us. I scheduled patient for tomorrow morning around 8:30. Referral received from Dr Ulloa on 04/15 for education prior to valve surgery. I called and left a VM message for patient to call back to set up that appt. documented in this encounter [facility] 04-19-2025 Telephone encounter Note Patients returned my call. They live over an hour away. I was trying to coordinate appts with Pre-Admission Testing but that appt is on Saturday which we are closed. I staffed with Patricia Emanuel, and she stated that we can do education over the phone. Unfortunately, they don't have a phone in their home, so they will call us. I scheduled patient for tomorrow morning around 8:30. [facility] 04-16-2025 Note Prep for Procedure O rder Request: 04/16/25 Surgeon: Artemio Surgery/Procedure: Mechanical AVR,KATY Diagnosis: Aortic Stenosis Plan Admit: yes PAT Appointment: yes Date if yes: TBS Date of Surgery/Procedure: 04/28/25 7 am Medications: [] Hold as directed by CTS: [x] Per PAT protocol Medication needed prescribed: [] None [x] Nasal ointment and mouth rinse [] Other: [facility] 04-16-2025 Telephone encounter Note Prep for Procedure Order Request: 04/16/25 Surgeon: Artemio Surgery/Procedure: Mechanical AVR,KATY Diagnosis: Aortic Stenosis Plan Admit: yes PAT Appointment: yes Date if yes: TBS Date of Surgery/Procedure: 04/28/25 7 am Medications: [] Hold as directed by CTS: [x] Per PAT protocol Medication needed prescribed: [] None [x] Nasal ointment and mouth rinse [] Other: [facility] 04-16-2025 Miscellaneous Notes Prep for Procedure Order Request: 04/16/25 Surgeon: Artemio Surgery/Procedure: Mechanical AVR,KATY Diagnosis: Aortic Stenosis Plan Admit: yes PAT Appointment: yes Date if yes: TBS Date of Surgery/Procedure: 04/28/25 7 am Medications: [] Hold as directed by CTS: [x] Per PAT protocol Medication needed prescribed: [] None [x] Nasal ointment and mouth rinse [] Other: documented in this encounter [facility] 04-16-2025 Note Referral received fr om Dr Ulloa on 04/15 for education prior to valve surgery. I called and left a VM message for patient to call back to set up that appt. [facility] 04-16-2025 Telephone encounter Note Referral received from Dr Ulloa on 04/15 for education prior to valve surgery. I called and left a VM message for patient to call back to set up that appt. [facility] 04-15-2025 Note Orders Placed This E ncounter Procedures Ambulatory referral to Anticoagulation - Warfarin Monitoring Referral Priority: Routine Referral Type: Consultation Referral Reason: Specialty Services Required Number of Visits Requested: 1 [facility] 04-15-2025 History of Presen t illness Narrative Images from the original note were not included. [facility] CARDIOVASCULAR & THORACIC SURGERY [address] [facility] [address] Dept: [phone] Dept Loc: [phone] Visit type: New Reason for Visit: Aortic stenosis Assessment: 1. Severe aortic stenosis 2. Chronic diastolic (congestive) heart failure (HCC) Recommendations: He will undergo surgical aortic valve replacement with a mechanical valve. This procedure was explained to him in detail. The risks were outlined in terms of the STS risk calculator. The mild LAD stenosis does not need to be addressed surgically as it is nonobstructive and the LAD does not even reach the apex. All questions were answered and he is willing to proceed. STS Risk Calculator Procedure Type: CABG + AVR Perioperative Outcome Estimate % Operative Mortality 1.75% Morbidity & Mortality 8.97% Stroke 2.18% Renal Failure 1.24% Reoperation 2.85% Prolonged Ventilation 4.42% Deep Sternal Wound Infection 0.182% Long Hospital Stay (>14 days) 6.16% Short Hospital Stay (<6 days)* 35.8% History of Present Illness Bright Keen is a 55 y.o. male was referred to Valve Clinic while inpatient for aortic valve stenosis. Per note, patient was admitted to [facility] on 03/04/25 for stroke like symptoms, with MRI revealing four tiny acute embolic infarcts in the right frontal and occipital lobes, and left parietal lobe. Pt was treated with TNK and had drastic improvement in symptoms. During further workup, a transthoracic echo was obtained, which demonstrated EF 55%, LA and RA moderately dilated, and severe aortic valve stenosis concerning for potential etiology of cryptogenic stroke, peak/mean gradients 84/53 mm Hg, LITO 1.0 cm^2. Patient reported pretty limiting PADRON that had worsened over the previous 4-6 weeks, cardiology was consulted and elected to manage him outpatient. Patient was cleared for discharge on 03/06/25 with referral to Valve Clinic and Cryptogenic Stroke Program. Pt was evaluated in Valve Clinic on 03/30/25. Dr. Ulloa Note 03/30/25 Assessment/Plan: Severe symptomatic aortic stenosis--warrants intervention Chronic diastolic congestive heart failure Hypertension Recent ischemic stroke. Recommendations: He will require aortic valve intervention. This will likely be best achieved with a surgical AVR using a mechanical heart valve. Prior to surgery he will undergo left heart catheterization to evaluate his coronary arteries. He will then come see me in follow up for scheduling. Pt underwent heart catheterization on 04/06/25 which demonstrated LAD with a 50% lesion just after large D1 and 30% disease of the D1. Pt is here now for an evaluation. He remains short of breath with activity and complains of being tired all the time. He has cut back on his activity level because of this. He denies chest pain. He does get mild leg edema if he is on his feet a lot. There is no syncope or orthopnea. His heart cath only shows mild stenosis of his LAD, but it is nonobstructive in my view and does not require bypass. 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 Respiratory: Positive for shortness of breath (on exertion). All other systems reviewed and are negative. Physical Exam Vitals: BP (!) 142/90 (BP Location: Left arm, Patient Position: Sitting, BP Cuff Size: Large adult) Pulse 64 Ht 5' 10 (1.778 m) Wt 261 lb (118 kg) BMI 37.45 kg/m Constitutional: General: Not in acute distress. Appearance: Normal appearance. Not toxic-appearing. Ear, nose, mouth: Bilateral external ear and nose normal. Nose: Nose normal. Mouth: Appearance normal, no bleeding, moist mucus membranes Eyes: General: No scleral icterus. No discharge from bilateral eyes Extraocular Movements: Extraocular movements intact. Pupils equal and reactive bilaterally Cardiovascular: Heart: Regular rhythm. Harsh 4/6 systolic murmur. A rhythm monitor is in place. Vascular: No carotid bruit. Edema: mild edema in bilateral lower extremities Pulmonary: Effort: Pulmonary effort is normal. No respiratory distress. Breath sounds: Normal breath sounds. No wheezing. Chest wall: No tenderness. Abdominal: Appearance: Not distended Palpations: There is no abdominal tenderness, no guarding. Musculoskeletal: Bilateral upper and lower extremities: Normal range of motion, no deformity Head: Normocephalic and atraumatic. Neck: Normal range of motion and neck supple. No muscular tenderness. Lymphadenopathy: Cervical: No cervical adenopathy. Skin: General: Skin is warm and dry. Coloration: Skin is not jaundiced. Neurological: General: No focal deficit present. Cranial Nerves: No obvious cranial nerve deficit. Psychiatric: Mood and Affect: Mood normal. Thought Content: Thought content normal. Patient has good judgement and insight Mental Status: Alert and oriented to place, person, and time. Labs Auto WBC Date/Time Value Ref Range Status 03/06/2025 06:05 AM 6.2 3.6 - 10.7 10*3/uL Final 03/05/2025 12:13 AM 8.1 3.6 - 10.7 10*3/uL Final Hemoglobin Date/Time Value Ref Range Status 03/06/2025 06:05 AM 13.6 13.0 - 18.0 g/dL Final 03/05/2025 12:13 AM 13.3 13.0 - 18.0 g/dL Final Platelets Date/Time Value Ref Range Status 03/06/2025 06:05 AM 212 140 - 440 10*3/uL Final 03/05/2025 12:13 AM 233 140 - 440 10*3/uL Final SODIUM Date/Time Value Ref Range Status 03/06/2025 06:05 AM 137 136 - 145 mmol/L Final 03/05/2025 12:13 AM 138 136 - 145 mmol/L Final POTASSIUM Date/Time Value Ref Range Status 03/06/2025 06:05 AM 4.3 3.5 - 5.1 mmol/L Final Comment: Plasma potassium values may be up to 0.5 mmol/L lower than serum values. 03/05/2025 12:13 AM 4.0 3.5 - 5.1 mmol/L Final Comment: Plasma potassium values may be up to 0.5 mmol/L lower than serum values. CREATININE Date/Time Value Ref Range Status 03/06/2025 06:05 AM 0.76 0.72 - 1.25 mg/dL Final 03/05/2025 12:13 AM 0.86 0.72 - 1.25 mg/dL Final Imaging Heart Catheterization 04/06/25 Findings: Coronary Anatomy: Left main with minimal CAD LAD with a 50% lesion just after large D1 and 30% disease of the D1 Circumflex with mild CAD RCA with minimal CAD, very large, supplies the apex Diagnostic Dominance: Right Left Main The vessel exhibits minimal luminal irregularities. Left Anterior Descending Mid LAD lesion, 50% stenosed. First Diagonal Branch 1st Diag lesion, 30% stenosed. Left Circumflex First Obtuse Marginal Branch The vessel exhibits minimal luminal irregularities. Right Coronary Artery The vessel exhibits minimal luminal irregularities. Intervention No interventions have been documented. TTE 03/05/25 Interpretation Summary Left Ventricle: Left ventricle size is normal. Moderately increased wall thickness. Normal left ventricular systolic function. The EF by visual approximation is 55%. Global longitudinal strain is -14.7%. Normal wall motion. Right Ventricle: Right ventricle size is normal. Normal systolic function. Aortic Valve: Trileaflet. Moderately thickened cusps. Severely calcified cusps. Trace regurgitation. Severe stenosis of the aortic valve. AV mean gradient is 53 mmHg. AV peak gradient is 84 mmHg. AV peak velocity is 4.6 m/s. LVOT:AV VTI Index is 0.25. AV area by continuity VTI is 1.0 cm2. Left Atrium: Left atrium is moderately dilated. Right Atrium: Right atrium is moderately dilated. Patient Care Team: PCP: Asher Jesus PA-C Cardiology: MD Emily White DO [facility] Cardiothoracic Surgery [1] Past Medical History: Diagnosis Date Hyperlipidemia Hypertension Stroke (HCC) [2] Past Surgical History: Procedure Laterality Date CARDIAC CATHETERIZATION N/A 04/06/2025 Performed by Shilpa Jackson MD at [facility] Cardiac Cath/EP Lab [3] No family history on file. [4] Social History Tobacco Use Smoking status: Never Smokeless tobacco: Never Substance Use Topics Alcohol use: Not Currently Drug use: Not Currently [5] No Known Allergies [6] Current Outpatient Medications: aspirin 81 MG chewable tablet, Chew 1 tablet (81 mg) daily. Do not start before March 07, 2025., Disp: 30 tablet, Rfl: 11 atorvastatin (Lipitor) 40 MG tablet, Take 1 tablet (40 mg) by mouth daily. Do not start before March 07, 2025., Disp: 30 tablet, Rfl: 11 documented in this encounter [facility] 04-15-2025 Note [facility] CARDIOVASCULAR & THORACIC SURGERY [address] [facility] [address] Dept: [phone] Dept Loc: [phone] Visit type: New Reason for Visit: Aortic stenosis Assessment: 1. Severe aortic stenosis 2. Chronic diastolic (congestive) heart failure (HCC) Recommendations: He will undergo surgical aortic valve replacement with a mechanical valve. This procedure was explained to him in detail. The risks were outlined in terms of the STS risk calculator. The mild LAD stenosis does not need to be addressed surgically as it is nonobstructive and the LAD does not even reach the apex. All questions were answered and he is willing to proceed. STS Risk Calculator Procedure Type: CABG + AVR Perioperative Outcome Estimate % Operative Mortality 1.75% Morbidity & Mortality 8.97% Stroke 2.18% Renal Failure 1.24% Reoperation 2.85% Prolonged Ventilation 4.42% Deep Sternal Wound Infection 0.182% Long Hospital Stay (>14 days) 6.16% Short Hospital Stay (<6 days)* 35.8% History of Present Illness Bright Keen is a 55 y.o. male was referred to Valve Clinic while inpatient for aortic valve stenosis. Per note, patient was admitted to [facility] on 03/04/25 for stroke like symptoms, with MRI revealing four tiny acute embolic infarcts in the right frontal and occipital lobes, and left parietal lobe. Pt was treated with TNK and had drastic improvement in symptoms. During further workup, a transthoracic echo was obtained, which demonstrated EF 55%, LA and RA moderately dilated, and severe aortic valve stenosis concerning for potential etiology of cryptogenic stroke, peak/mean gradients 84/53 mm Hg, LITO 1.0 cm^2. Patient reported pretty limiting PADRON that had worsened over the previous 4-6 weeks, cardiology was consulted and elected to manage him outpatient. Patient was cleared for discharge on 03/06/25 with referral to Valve Clinic and Cryptogenic Stroke Program. Pt was evaluated in Valve Clinic on 03/30/25. Dr. Ulloa Note 03/30/25 Assessment/Plan: Severe symptomatic aortic stenosis--warrants intervention Chronic diastolic congestive heart failure Hypertension Recent ischemic stroke. Recommendations: He will require aortic valve intervention. This will likely be best achieved with a surgical AVR using a mechanical heart valve. Prior to surgery he will undergo left heart catheterization to evaluate his coronary arteries. He will then come see me in follow up for scheduling. Pt underwent heart catheterization on 04/06/25 which demonstrated LAD with a 50% lesion just after large D1 and 30% disease of the D1. Pt is here now for an evaluation. He remains short of breath with activity and complains of being tired all the time. He has cut back on his activity level because of this. He denies chest pain. He does get mild leg edema if he is on his feet a lot. There is no syncope or orthopnea. His heart cath only shows mild stenosis of his LAD, but it is nonobstructive in my view and does not require bypass. Past Medical History Medical History[1] Past Surgical History Surgical History[2] Family History Family History[3] Social History Marital status: Work history: [employer] [place] status: Never Served Social History[4] Allergies Allergies[5] Medications Current Medications[6] Review of Systems Review of Systems Constitutional: Positive for fatigue. Respiratory: Positive for shortness of breath (on exertion). All other systems reviewed and are negative. Physical Exam Vitals: BP (!) 142/90 (BP Location: Left arm, Patient Position: Sitting, BP Cuff Size: Large adult) Pulse 64 Ht 5' 10 (1.778 m) Wt 261 lb (118 kg) BMI 37.45 kg/m? Constitutional: General: Not in acute distress. Appearance: Normal appearance. Not toxic-appearing. Ear, nose, mouth: Bilateral external ear and nose normal. Nose: Nose normal. Mouth: Appearance normal, no bleeding, moist mucus membranes Eyes: General: No scleral icterus. No discharge from bilateral eyes Extraocular Movements: Extraocular movements intact. Pupils equal and reactive bilaterally Cardiovascular: Heart: Regular rhythm. Harsh 4/6 systolic murmur. A rhythm monitor is in place. Vascular: No carotid bruit. Edema: mild edema in bilateral lower extremities Pulmonary: Effort: Pulmonary effort is normal. No respiratory distress. Breath sounds: Normal breath sounds. No wheezing. Chest wall: No tenderness. Abdominal: Appearance: Not distended Palpations: There is no abdominal tenderness, no guarding. Musculoskeletal: Bilateral upper and lower extremities: Normal range of motion, no deformity Head: Normocephalic and atraumatic. Neck: Normal range of motion and neck supple. No muscular tenderness. Lymphadenopathy: Cervical: No cervical adenopathy. Skin: General: Skin is warm and dry. Coloration: Skin is not ja (more content not included)... [facility] 04-06-2025 Hospital Discharg e kelley Marie APRN - P[employer]ING LOT ATTENDANT - 04/06/2025 1:53 PM EDT Call your doctor with any medication questions or if you notice any side effects from your medications. If you are unable to fill your medications, please call your Project Administrative Assistant immediately. The office number is located with your follow-up appointment information. Call your doctor if any redness or drainage from the wound site. DO NOT stop taking your medication unless instructed to do so by your doctor. Read the drug information material that were given to you and take medications as instructed by your doctor. New drugs may have been added to your medications, that will strengthen your heart and prevent re-stenosis of the coronary arteries. Drink 6 glasses of water (8 ounces each) over the next 24 hours. Water helps clear the dye from your body. No alcoholic beverages for 24 hours. It may interfere with healing. No exercise or sex for 5 days. Call 911 for chest pain, arm pain, nausea, neck pain, dizziness or unusual sweating AND your pain has not relieved with 2 doses of Nitroglycerin. Radial Site (wrist) Call your doctor if a lump at the puncture site enlarges or is larger than marble size. Call your doctor for numbness, tingling, or swelling of the fingers, hand or wrist. Call your doctor for increased area or bruising with discoloration extending into the arm. If bleeding occurs, hold pressure with your thumb against the puncture site and your finger against the back of the wrist for 10 minutes, if BLEEDING continues CALL 911. OK to shower. No tub baths, swimming pools or hot tub soaking for three days. Wash site daily with soap and water, dry gently. The healing wound should remain soft and dry. Keep site clean and dry, no soaking of wrist for three days (no cleaning or dish washing). Remove band aid the day after procedure and leave open to air. No bending of affected wrist for 24 hours. DO NOT lift more than three pounds for 3-5 days. No driving for 24 hours. PLEASE CALL YOUR HEART DOCTOR IF YOU CANNOT GET YOUR MEDICATIONS. THE NUMBER IS LISTED WITH YOUR FOLLOW-UP APPOINTMENT. Procedure Sedation Instructions If you have received sedation: you must have someone drive you home You should not drive a car, operate machinery, drink alcohol or perform any activity that requires alertness for the rest of the day. The effects of the sedative should be gone by tomorrow. documented in this encounter [facility] 04-06-2025 Note H&P reviewed. The jose sindyjerardo was examined and there are no changes to the H&P. [facility] 04-05-2025 Note Attestation signed by Shilpa Jackson MD at 04/07/2025 8:50 AM I, Dr. Jackson, saw and evaluated the patient. I personally obtained the carlos and critical portions of the history and physical exam. I reviewed the chart and discussed the patient with the Nurse Practitioner. I agree with the Nurse Practitioner's medical decision making. I spoke with Bright Keen this morning. he tells me that nothing has changed clinically since our last office visit. We will proceed with the planned procedure. [address] [address] Dept: [phone] Dept Visit type: New : 1970 Reason for Visit: New Patient and Cardiac Valve Problem (Heart valve clinic) Assessment and Plan 1. Nonrheumatic aortic valve stenosis [place] [facility] [place] [facility] - ECG 12 lead - CLINIC PERFORMED - CBC auto differential - Basic metabolic panel - Case Request Field Appraiser: Left and right heart cath / coronary angiography This is a very pleasant 55 y.o. male with severe and symptomatic aortic stenosis. he is in need of aortic valve replacement. Will get a cardiac cath to evaluate for concomitant coronary disease. Will then likely see CT surgery back in the office to discuss the possibility of open heart surgery, mechanical vs bioprosthetic valve, etc. This decision was made after multidisciplinary discussion, using a shared decision making strategy. CT surgery also saw patient to aide in discussion. He would not need any specific treatment for his cryptogenic stroke, from a cardiac standpoint. He has no PFO. He simply needs post stroke medical therapy and aggressive risk factor modification. It was a pleasure seeing your patient in the office today. Please do not hesitate to call me with any questions. Follow up for Recheck after cath. Subjective HPI Bright Keen is a very pleasant 55 y.o. male who is here for evaluation of his aortic valve disease. his symptoms include progressive dyspnea on exertion. He was recently hospitalized for a cryptogenic stroke, but was not found to have a PFO, echo did show severe . his most recent echo shows normal LV function, severe aortic stenosis with mean gradient 53mmHg. He is currently wearing a 30 day event monitor to search for afib. He has had full recovery of neurologic function (did received TNK for stroke). . Review of Systems Constitutional: Negative for activity change, chills, diaphoresis, fatigue and fever. HENT: Negative for nosebleeds and trouble swallowing. Eyes: Negative for discharge and visual disturbance. Respiratory: Positive for shortness of breath (on exertion). Negative for apnea, cough, chest tightness and wheezing. Cardiovascular: Negative for chest pain, palpitations and leg swelling. Gastrointestinal: Negative for abdominal distention, abdominal pain, blood in stool, diarrhea, nausea and vomiting. Endocrine: Negative for cold intolerance and heat intolerance. Genitourinary: Negative for hematuria. Musculoskeletal: Negative for gait problem and myalgias. Skin: Negative for color change and rash. Neurological: Negative for dizziness, seizures, syncope, facial asymmetry, speech difficulty, weakness, light-headedness, numbness and headaches. Hematological: Does not bruise/bleed easily. Psychiatric/Behavioral: Negative for dysphoric mood. Allergies No Known Allergies Current Medications Current Outpatient Medications: aspirin 81 MG chewable tablet, Chew 1 tablet (81 mg) daily. Do not start before March 07, 2025., Disp: 30 tablet, Rfl: 11 atorvastatin (Lipitor) 40 MG tablet, Take 1 tablet (40 mg) by mouth daily. Do not start before March 07, 2025., Disp: 30 tablet, Rfl: 11 Medical History No past medical history on file. Social History Tobacco Use Smoking status: Not on file Smokeless tobacco: Not on file Substance Use Topics Alcohol use: Not on file Surgical History No past surgical history on file. Family History No family history on file. Objective Vitals Vitals: 03/30/25 1417 BP: 130/84 BP Location: Right arm Patient Position: Sitting BP Cuff Size: Large adult Pulse: 74 SpO2: 94% Weight: 263 lb 3.2 oz (119 kg) Height: 5' 10 (1.778 m) Physical Exam Cardiovascular: Heart sounds: Murmur heard. Systolic murmur is present with a grade of 3/6. Data Reviewed and Summarized EF BP Date Value Ref Range Status 03/05/2025 66 55 - 100 % Final Review of tests/labs done/ordered within my specialty: EKG in office: Review of tests/labs done/ordered outside my specialty: Independent interpretation of tests: I personally reviewed the images from Bright Keen's most recent TTE in the office today, to help with medical decision making. My interpretation is noted in the HPI section (more content not included)... [facility] 04-05-2025 Note Attestation signed by Shilpa Jackson MD at 04/07/2025 8:50 AM I, Dr. Jackson, saw and evaluated the patient. I personally obtained the carlos and critical portions of the history and physical exam. I reviewed the chart and discussed the patient with the Nurse Practitioner. I agree with the Nurse Practitioner's medical decision making. I spoke with Bright Keen this morning. he tells me that nothing has changed clinically since our last office visit. We will proceed with the planned procedure. [facility] [address] [address] Dept: [phone] Dept Visit type: New : 1970 Reason for Visit: New Patient and Cardiac Valve Problem (Heart valve clinic) Assessment and Plan 1. Nonrheumatic aortic valve stenosis [place] [facility] [place] [facility] - ECG 12 lead - CLINIC PERFORMED - CBC auto differential - Basic metabolic panel - Case Request Field Appraiser: Left and right heart cath / coronary angiography This is a very pleasant 55 y.o. male with severe and symptomatic aortic stenosis. he is in need of aortic valve replacement. Will get a cardiac cath to evaluate for concomitant coronary disease. Will then likely see CT surgery back in the office to discuss the possibility of open heart surgery, mechanical vs bioprosthetic valve, etc. This decision was made after multidisciplinary discussion, using a shared decision making strategy. CT surgery also saw patient to aide in discussion. He would not need any specific treatment for his cryptogenic stroke, from a cardiac standpoint. He has no PFO. He simply needs post stroke medical therapy and aggressive risk factor modification. It was a pleasure seeing your patient in the office today. Please do not hesitate to call me with any questions. Follow up for Recheck after cath. Subjective HPI Bright Keen is a very pleasant 55 y.o. male who is here for evaluation of his aortic valve disease. his symptoms include progressive dyspnea on exertion. He was recently hospitalized for a cryptogenic stroke, but was not found to have a PFO, echo did show severe . his most recent echo shows normal LV function, severe aortic stenosis with mean gradient 53mmHg. He is currently wearing a 30 day event monitor to search for afib. He has had full recovery of neurologic function (did received TNK for stroke). . Review of Systems Constitutional: Negative for activity change, chills, diaphoresis, fatigue and fever. HENT: Negative for nosebleeds and trouble swallowing. Eyes: Negative for discharge and visual disturbance. Respiratory: Positive for shortness of breath (on exertion). Negative for apnea, cough, chest tightness and wheezing. Cardiovascular: Negative for chest pain, palpitations and leg swelling. Gastrointestinal: Negative for abdominal distention, abdominal pain, blood in stool, diarrhea, nausea and vomiting. Endocrine: Negative for cold intolerance and heat intolerance. Genitourinary: Negative for hematuria. Musculoskeletal: Negative for gait problem and myalgias. Skin: Negative for color change and rash. Neurological: Negative for dizziness, seizures, syncope, facial asymmetry, speech difficulty, weakness, light-headedness, numbness and headaches. Hematological: Does not bruise/bleed easily. Psychiatric/Behavioral: Negative for dysphoric mood. Allergies No Known Allergies Current Medications Current Outpatient Medications: aspirin 81 MG chewable tablet, Chew 1 tablet (81 mg) daily. Do not start before March 07, 2025., Disp: 30 tablet, Rfl: 11 atorvastatin (Lipitor) 40 MG tablet, Take 1 tablet (40 mg) by mouth daily. Do not start before March 07, 2025., Disp: 30 tablet, Rfl: 11 Medical History No past medical history on file. Social History Tobacco Use Smoking status: Not on file Smokeless tobacco: Not on file Substance Use Topics Alcohol use: Not on file Surgical History No past surgical history on file. Family History No family history on file. Objective Vitals Vitals: 03/30/25 1417 BP: 130/84 BP Location: Right arm Patient Position: Sitting BP Cuff Size: Large adult Pulse: 74 SpO2: 94% Weight: 263 lb 3.2 oz (119 kg) Height: 5' 10 (1.778 m) Physical Exam Cardiovascular: Heart sounds: Murmur heard. Systolic murmur is present with a grade of 3/6. Data Reviewed and Summarized EF BP Date Value Ref Range Status 03/05/2025 66 55 - 100 % Final Review of tests/labs done/ordered within my specialty: EKG in office: Review of tests/labs done/ordered outside my specialty: Independent interpretation of tests: I personally reviewed the images from Bright Osmani's most recent TTE in the office today, to help with medical decision making. My interpretation is noted in the HPI section (more content not included)... [facility] 04-05-2025 Note EHS ENGINEER to complete pre p for proc Procedure being done: L/RHC Date/time of procedure: 04/06/25 at 10 am Procedure physician: Dr. Jackson PRE-PROCEDURE CHECKLIST Completed: CMP, CBC, EKG, and H&P Date completed: H&P: 03/30/25 BMP: 04/01/25 CBC: 04/01/25 EK03/30/25 PT INR (if indicated): N/A Urine HCG (if indicated): N/A Last ICD/pacer check (if indicated): N/A ORDERS DAY OF PROCEDURE [x] N/A [] Urine HCG [] POC Glucose [] POC INR [] EKG on arrival [] BMP [] CBC Other: [facility] 03-31-2025 Telephone encounter Note PC to patient. LMOM regarding cath duration and discharge. Pt to call office with further questions or concerns. [facility] 03-31-2025 Miscellaneous Notes PC to patient. LMOM regarding cath duration and discharge. Pt to call office with further questions or concerns. Name of caller: Odalis Contact phone number: [phone] Relationship to Patient: patient Provider: Dr Jackson Practice: [facility] Chief Complaint/Reason for Call: pts calling to ask how long the heart cath will take or when he can leave the day of his procedure Best time of day caller can be reached: AM Patient advised that office/PCP has 24-48 business hours to return their call: Yes documented in this encounter [facility] 03-31-2025 Telephone encounter Note Name of caller: Odalis Contact phone number: [phone] Relationship to Patient: patient Provider: Dr Jackson Practice: [facility] Chief Complaint/Reason for Call: pts calling to ask how long the heart cath will take or when he can leave the day of his procedure Best time of day caller can be reached: AM Patient advised that office/PCP has 24-48 business hours to return their call: Yes [facility] 03-30-2025 Note PROCEDURE: L/RHC PROCEDURE DATE: 04/06/25 PROCEDURE TIME: 10 AM ARRIVE AT 8:30 AM Report to the Central [facility] (first floor) at the hospital entrance at [address] Nothing to eat or drink after midnight prior to your procedure unless otherwise instructed by your doctor. You may take your morning medications as directed by physician with a sip of water unless specified below. Bring a complete list of all of your medications and dosages. Aspirin 81 mg as usual on the day of procedure. Dye Allergy Prep: If you are allergic to IVP dye, contrast and/or shellfish, notify your doctor immediately. Please make arrangements for a student truck driver after the procedure. You will not be able to drive for 24 to 72 hours. Possibility for overnight stay - if on CPAP, please bring machine with you. If you have any questions regarding your medications, please call your doctor's office. Please complete lab work by 04/01/25 at [facility] All patients will be called the afternoon prior to the procedure with specific instructions if there should be any changes. If you do not receive a call by 4:30 pm, please call the Prep and Recovery area at [phone]. The schedule is not finalized until the afternoon, so please avoid calling before 4:30 pm. [facility] 03-30-2025 Note Dx: Procedure: L/RHC Date/Time: 04/06/2025 at 10:00a Surgeon: PB Location: [facility] Admission: OP Anesthesia: N/A On PB calendar and no auth req per [facility]. Just waiting for PB to sign his note to get case request. [facility] 03-30-2025 History of Presen t illness Narrative Images from the original note were not included. [facility] Medical Group: Cardiothoracic Surgery Multidisciplinary Heart Valve Clinic Date: 03/30/25 Patient:Bright Keen 1970 55 y.o. male [id number] Subjective: HPI: Bright Keen 54 y.o[address] referred by Dr. Holcomb while inpatient, is being evaluated for aortic valve stenosis. Echocardiogram completed on 03/04/25 showed severe aortic valve stenosis with peak/mean gradients 84/53 mm Hg, LITO 1.0 cm^2. Per note, patient was admitted to [facility] on 03/04/25 for stroke like symptoms, with MRI revealing four tiny acute embolic infarcts in the right frontal and occipital lobes, and left parietal lobe. Pt was treated with TNK and had drastic improvement in symptoms. During further workup, a transthoracic echo was obtained, which demonstrated EF 55%, LA and RA moderately dilated, and severe aortic valve stenosis concerning for potential etiology of cryptogenic stroke, peak/mean gradients 84/53 mm Hg, LITO 1.0 cm^2. Patient reported pretty limiting PADRON that had worsened over the previous 4-6 weeks, cardiology was consulted and elected to manage him outpatient. Patient was cleared for discharge on 03/06/25 with referral to Valve Clinic and Cryptogenic Stroke Program. Patient is scheduled for 30-day Holter monitor placement on 03/30/25. Mr. Benítez was admitted to the hospital a few weeks ago with an acute ischemic stroke. He was given thrombolytic therapy which resolved his symptoms. He has had no weakness or other symptoms since that time. His main complaint now is shortness of breath with any exertion. 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 He denies any syncope or leg edema, however. He has had his symptoms for over one year. He takes Plavix due to his stroke. Medical History No past medical history on file. Blood thinner Transthoracic Echocardiogram 03/04/25 Interpretation Summary Left Ventricle: Left ventricle size is normal. Moderately increased wall thickness. Normal left ventricular systolic function. The EF by visual approximation is 55%. Global longitudinal strain is -14.7%. Normal wall motion. Right Ventricle: Right ventricle size is normal. Normal systolic function. Aortic Valve: Trileaflet. Moderately thickened cusps. Severely calcified cusps. Trace regurgitation. Severe stenosis of the aortic valve. AV mean gradient is 53 mmHg. AV peak gradient is 84 mmHg. AV peak velocity is 4.6 m/s. LVOT:AV VTI Index is 0.25. AV area by continuity VTI is 1.0 cm2. Left Atrium: Left atrium is moderately dilated. Right Atrium: Right atrium is moderately dilated. Review of Systems Constitutional: Negative for activity change, chills, diaphoresis, fatigue and fever. HENT: Negative for nosebleeds and trouble swallowing. Eyes: Negative for discharge and visual disturbance. Respiratory: Positive for shortness of breath (on exertion). Negative for apnea, cough, chest tightness and wheezing. Cardiovascular: Negative for chest pain, palpitations and leg swelling. Gastrointestinal: Negative for abdominal distention, abdominal pain, blood in stool, diarrhea, nausea and vomiting. Endocrine: Negative for cold intolerance and heat intolerance. Genitourinary: Negative for hematuria. Musculoskeletal: Negative for gait problem and myalgias. Skin: Negative for color change and rash. Neurological: Negative for dizziness, seizures, syncope, facial asymmetry, speech difficulty, weakness, light-headedness, numbness and headaches. Hematological: Does not bruise/bleed easily. Psychiatric/Behavioral: Negative for dysphoric mood. Allergies: Patient has no known allergies. Past Medical History: has no past medical history on file. Past Surgical History: has no past surgical history on file. Social History: Family History: family history is not on file. Medications: Prior to Admission medications Medication Sig Start Date End Date Taking? Authorizing Provider aspirin 81 MG chewable tablet Chew 1 tablet (81 mg) daily. Do not start before March 07, 2025. 03/07/25 03/07/26 Chad Holcomb MD atorvastatin (Lipitor) 40 MG tablet Take 1 tablet (40 mg) by mouth daily. Do not start before March 07, 2025. 03/07/25 03/07/26 Chad Holcomb MD clopidogrel (Plavix) 75 MG tablet Take 1 tablet (75 mg) by mouth daily for 19 days. Do not start before March 07, 2025. 03/07/25 03/26/25 Chad Holcomb MD Objective: BP 130/84 (BP Location: Right arm, Patient Position: Sitting, BP Cuff Size: Large adult) Pulse 74 Ht 5' 10 (1.778 m) Wt 262 lb 5.6 oz (119 kg) SpO2 94% BMI 37.64 kg/m @[id number]@ Physical Exam General --AAO x 3 CV--RRR with systolic murmur present Resp--CTAB Abd--soft, obese, NT Ext--no significant edema Neuro--no gross deficits. Labs: Reviewed in EMR Lab Results Component Value Date WBC 6.2 03/06/2025 HGB 13.6 03/06/2025 HCT 40.5 03/06/2025 MCV 83.5 03/06/2025 PLT 212 03/06/2025 Lab Results Component Value Date NA 137 03/06/2025 K 4.3 03/06/2025 CL 111 (H) 03/06/2025 CO2 22 03/06/2025 BUN 13 03/06/2025 CREATININE 0.76 03/06/2025 GLUCOSE 92 03/06/2025 CALCIUM 8.5 03/06/2025 Diagnostics: Reviewed in EMR STS Risk Calculator: Clinical Summary Planned Surgery: Isolated CABG, Elective, First cardiovascular surgery Demographics: 55 year old, White, male, 120kg, 177cm, BMI: 38.3 kg/m Insurance/Payor: None / self Lab Values: Creatinine: 0.76 mg/dL, Hematocrit: 40%, WBC Count: 6 10 /?L, Platelet Count: 239555 cells/?L PreOp Medications: MARIO Inhibitors/ARBs <= 48 hrs, ADP Inhibitors <= 5 days Substance Abuse: Never smoker Risk Factors / Comorbidities: Hypertension Pulmonary RF: Mild CLD Vascular RF: Cerebrovascular Disease: CVA <= 30 days Cardiac Status: Chronic heart failure, Ejection Fraction = 50% Coronary Artery Disease: None/Other Valve Disease: Aortic Stenosis, Mild AR, Mild MR Assessment/Plan: Severe symptomatic aortic stenosis--warrants intervention Chronic diastolic congestive heart failure Hypertension Recent ischemic stroke. Recommendations: He will require aortic valve intervention. This will likely be best achieved with a surgical AVR using a mechanical heart valve. Prior to surgery he will undergo left heart catheterization to evaluate his coronary arteries. He will then come see me in follow up for scheduling. Emily Ulloa DO FACS Cardiothoracic Surgery documented in this encounter [facility] 03-30-2025 History of Presen t illness Narrative Images from the original note were not included. [facility] [place] [address] [facility] [address] Dept: [phone] Dept Visit type: New : 1970 Reason for Visit: New Patient and Cardiac Valve Problem (Heart valve clinic) Assessment and Plan 1. Nonrheumatic aortic valve stenosis - [facility] [place] [facility] - ECG 12 lead - CLINIC PERFORMED - CBC auto differential - Basic metabolic panel - Case Request Field Appraiser: Left and right heart cath / coronary angiography This is a very pleasant 55 y.o. male with severe and symptomatic aortic stenosis. he is in need of aortic valve replacement. Will get a cardiac cath to evaluate for concomitant coronary disease. Will then likely see CT surgery back in the office to discuss the possibility of open heart surgery, mechanical vs bioprosthetic valve, etc. This decision was made after multidisciplinary discussion, using a shared decision making strategy. CT surgery also saw patient to aide in discussion. He would not need any specific treatment for his cryptogenic stroke, from a cardiac standpoint. He has no PFO. He simply needs post stroke medical therapy and aggressive risk factor modification. It was a pleasure seeing your patient in the office today. Please do not hesitate to call me with any questions. Follow up for Recheck after cath. Subjective HPI Bright Keen is a very pleasant 55 y.o. male who is here for evaluation of his aortic valve disease. his symptoms include progressive dyspnea on exertion. He was recently hospitalized for a cryptogenic stroke, but was not found to have a PFO, echo did show severe . his most recent echo shows normal LV function, severe aortic stenosis with mean gradient 53mmHg. He is currently wearing a 30 day event monitor to search for afib. He has had full recovery of neurologic function (did received TNK for stroke). . Review of Systems Constitutional: Negative for activity change, chills, diaphoresis, fatigue and fever. HENT: Negative for nosebleeds and trouble swallowing. Eyes: Negative for discharge and visual disturbance. Respiratory: Positive for shortness of breath (on exertion). Negative for apnea, cough, chest tightness and wheezing. Cardiovascular: Negative for chest pain, palpitations and leg swelling. Gastrointestinal: Negative for abdominal distention, abdominal pain, blood in stool, diarrhea, nausea and vomiting. Endocrine: Negative for cold intolerance and heat intolerance. Genitourinary: Negative for hematuria. Musculoskeletal: Negative for gait problem and myalgias. Skin: Negative for color change and rash. Neurological: Negative for dizziness, seizures, syncope, facial asymmetry, speech difficulty, weakness, light-headedness, numbness and headaches. Hematological: Does not bruise/bleed easily. Psychiatric/Behavioral: Negative for dysphoric mood. No Known Allergies Current Outpatient Medications: aspirin 81 MG chewable tablet, Chew 1 tablet (81 mg) daily. Do not start before March 07, 2025., Disp: 30 tablet, Rfl: 11 atorvastatin (Lipitor) 40 MG tablet, Take 1 tablet (40 mg) by mouth daily. Do not start before March 07, 2025., Disp: 30 tablet, Rfl: 11 No past medical history on file. Social History Tobacco Use Smoking status: Not on file Smokeless tobacco: Not on file Substance Use Topics Alcohol use: Not on file No past surgical history on file. No family history on file. Objective Vitals: 03/30/25 1417 BP: 130/84 BP Location: Right arm Patient Position: Sitting BP Cuff Size: Large adult Pulse: 74 SpO2: 94% Weight: 263 lb 3.2 oz (119 kg) Height: 5' 10 (1.778 m) Physical Exam Cardiovascular: Heart sounds: Murmur heard. Systolic murmur is present with a grade of 3/6. Data Reviewed and Summarized EF BP Date Value Ref Range Status 03/05/2025 66 55 - 100 % Final Review of tests/labs done/ordered within my specialty: EKG in office: Review of tests/labs done/ordered outside my specialty: Independent interpretation of tests: I personally reviewed the images from Bright Keen's most recent TTE in the office today, to help with medical decision making. My interpretation is noted in the HPI section of this note. Shilpa Jackson MD NYHA Class (1-4): 2 STS score: 0.979% 5 meter gait speed in seconds: 5, 5, 5 Ao valve disease etiology (degenerative, rheumatic, endocarditis, other): degenerative documented in this encounter [facility] 03-30-2025 History of Presen t illness Narrative Images from the original note were not included. [facility] [place] [address] [address] Dept: [phone] Dept Visit type: New : 1970 Reason for Visit: New Patient and Cardiac Valve Problem (Heart valve clinic) Assessment and Plan 1. Nonrheumatic aortic valve stenosis [place] [facility] [place] [facility] - ECG 12 lead - CLINIC PERFORMED - CBC auto differential - Basic metabolic panel - Case Request Field Appraiser: Left and right heart cath / coronary angiography This is a very pleasant 55 y.o. male with severe and symptomatic aortic stenosis. he is in need of aortic valve replacement. Will get a cardiac cath to evaluate for concomitant coronary disease. Will then likely see CT surgery back in the office to discuss the possibility of open heart surgery, mechanical vs bioprosthetic valve, etc. This decision was made after multidisciplinary discussion, using a shared decision making strategy. CT surgery also saw patient to aide in discussion. He would not need any specific treatment for his cryptogenic stroke, from a cardiac standpoint. He has no PFO. He simply needs post stroke medical therapy and aggressive risk factor modification. It was a pleasure seeing your patient in the office today. Please do not hesitate to call me with any questions. Follow up for Recheck after cath. Subjective HPI Bright Keen is a very pleasant 55 y.o. male who is here for evaluation of his aortic valve disease. his symptoms include progressive dyspnea on exertion. He was recently hospitalized for a cryptogenic stroke, but was not found to have a PFO, echo did show severe . his most recent echo shows normal LV function, severe aortic stenosis with mean gradient 53mmHg. He is currently wearing a 30 day event monitor to search for afib. He has had full recovery of neurologic function (did received TNK for stroke). . Review of Systems Constitutional: Negative for activity change, chills, diaphoresis, fatigue and fever. HENT: Negative for nosebleeds and trouble swallowing. Eyes: Negative for discharge and visual disturbance. Respiratory: Positive for shortness of breath (on exertion). Negative for apnea, cough, chest tightness and wheezing. Cardiovascular: Negative for chest pain, palpitations and leg swelling. Gastrointestinal: Negative for abdominal distention, abdominal pain, blood in stool, diarrhea, nausea and vomiting. Endocrine: Negative for cold intolerance and heat intolerance. Genitourinary: Negative for hematuria. Musculoskeletal: Negative for gait problem and myalgias. Skin: Negative for color change and rash. Neurological: Negative for dizziness, seizures, syncope, facial asymmetry, speech difficulty, weakness, light-headedness, numbness and headaches. Hematological: Does not bruise/bleed easily. Psychiatric/Behavioral: Negative for dysphoric mood. No Known Allergies Current Outpatient Medications: aspirin 81 MG chewable tablet, Chew 1 tablet (81 mg) daily. Do not start before March 07, 2025., Disp: 30 tablet, Rfl: 11 atorvastatin (Lipitor) 40 MG tablet, Take 1 tablet (40 mg) by mouth daily. Do not start before March 07, 2025., Disp: 30 tablet, Rfl: 11 No past medical history on file. Social History Tobacco Use Smoking status: Not on file Smokeless tobacco: Not on file Substance Use Topics Alcohol use: Not on file No past surgical history on file. No family history on file. Objective Vitals: 03/30/25 1417 BP: 130/84 BP Location: Right arm Patient Position: Sitting BP Cuff Size: Large adult Pulse: 74 SpO2: 94% Weight: 263 lb 3.2 oz (119 kg) Height: 5' 10 (1.778 m) Physical Exam Cardiovascular: Heart sounds: Murmur heard. Systolic murmur is present with a grade of 3/6. Data Reviewed and Summarized EF BP Date Value Ref Range Status 03/05/2025 66 55 - 100 % Final Review of tests/labs done/ordered within my specialty: EKG in office: Review of tests/labs done/ordered outside my specialty: Independent interpretation of tests: I personally reviewed the images from Bright Keen's most recent TTE in the office today, to help with medical decision making. My interpretation is noted in the HPI section of this note. Shilpa Jackson MD NYHA Class (1-4): 2 STS score: 0.979% 5 meter gait speed in seconds: 5, 5, 5 Ao valve disease etiology (degenerative, rheumatic, endocarditis, other): degenerative documented in this encounter [facility] 03-24-2025 Telephone encounter Note Pt called back the appt in in [place] will work for him, pt was given the address and directions to [place] [facility] 03-24-2025 Miscellaneous Notes Pt called back the appt in in [place] will work for him, pt was given the address and directions to [place] Pt's EM rs to 10:30 on the in [facility] Left detailed message with the new date and time, pt instructed to call back EM scheduled for 03/25 at 1030, OC fu 06/18/25 Left detailed message with the dates and times pt instructed to call back to confirm Patient referred to the cryptogenic stroke program by neurology he was discharged home on 03/08/2025 and will need a 30-day event monitor and follow-up with Dr. Francis documented in this encounter [facility] 03-24-2025 Telephone encounter Note Pt's EM rs to 10:30 on the in [facility] Left detailed message with the new date and time, pt instructed to call back [facility] 03-12-2025 Telephone encounter Note EM scheduled for 03/25 at 1030, OC fu 06/18/25 Left detailed message with the dates and times pt instructed to call back to confirm [facility] 03-12-2025 Miscellaneous Notes EM scheduled for 03/25 at 1030, OC fu 06/18/25 Patient referred to the cryptogenic stroke program by neurology he was discharged home on 03/08/2025 and will need a 30-day event monitor and follow-up with Dr. Francis documented in this encounter [facility] 03-10-2025 Telephone encounter Note Patient referred to the cryptogenic stroke program by neurology he was discharged home on 03/08/2025 and will need a 30-day event monitor and follow-up with Dr. Francis [facility] 03-10-2025 Telephone encounter Note Has PCP follow up tomorrow. Scheduled with [facility] for follow up in June and on a cancellation list for sooner appointment if one becomes available. Has Cardiology appointment scheduled 03/30/2025. [facility] 03-10-2025 Miscellaneous Notes Has PCP follow up tomorrow. Scheduled with [facility] for follow up in June and on a cancellation list for sooner appointment if one becomes available. Has Cardiology appointment scheduled 03/30/2025. documented in this encounter [facility] 03-06-2025 Nurse Note Discharge instructions given to patient and reviewed with him. Patient verbalized understanding. [facility] 03-06-2025 History of Presen t illness Narrative Images from the original note were not included. OCCUPATIONAL THERAPY [facility] Name/MRN: Bright Keen ([id number]) Date: 03/06/2025 Orders received for OT evaluation and treat. Pt agreeable to therapy. Demonstrates independence with all ADLs. Spent 5 minutes of non-billable time with the pt from [id number]. OT to sign off, recommending home independently at discharge. Ron Reeves OT Med Team Progress Note Bright Keen : 1970(54 y.o.) Date: March 06, 2025 Med Team: Kristin Attending: Dr. Woody Chief Complaint: Left sided weakness Subjective: - No acute events overnight. - Currently, patient is resting in bed comfortably accompanied by his . He denies any acute complaints and states he feels completely back to normal. He has regained full strength and sensation on his left side and denies any abnormalities in his mental clarity, speech, or language. Patient requested to go home this evening so he could attend his hindu orthodox tomorrow. Additionally, patient mentioned he has been previously having significant shortness of breath with exertion. He is unable to climb one flight of stairs without being significantly short of breath. He states he's had a prior episode of syncope and endorses some intermittent chest tightness with exertion. PRN meds used in last 24hrs: Ativan 1 mg x1 Patient seen and examined on teaching rounds this AM. I agree with the above. Review of Systems Constitutional: Negative for diaphoresis and fatigue. Eyes: Negative for visual disturbance. Respiratory: Negative for chest tightness, shortness of breath and wheezing. Cardiovascular: Negative for chest pain, palpitations and leg swelling. Gastrointestinal: Negative for abdominal distention, diarrhea and nausea. Musculoskeletal: Negative. Neurological: Negative for dizziness, seizures, facial asymmetry, speech difficulty, weakness, numbness and headaches. Scheduled Meds:aspirin, 81 mg, Oral, Daily atorvastatin, 40 mg, Oral, Daily clopidogrel, 75 mg, Oral, Daily enoxaparin, 40 mg, SubCUTAneous, Daily mupirocin, 1 Application, Nasal, BID Continuous Infusions: Objective: BP 114/83 (BP Location: Left arm, Patient Position: Lying) Pulse 71 Temp (!) 35.9 C (96.7 F) (Temporal) Resp 16 Ht 5' 10 (1.778 m) Wt 271 lb (123 kg) SpO2 98% BMI 38.88 kg/m Physical Exam Constitutional: Appearance: Normal appearance. He is obese. HENT: Mouth/Throat: Mouth: Mucous membranes are dry. Eyes: Extraocular Movements: Extraocular movements intact. Pupils: Pupils are equal, round, and reactive to light. Cardiovascular: Rate and Rhythm: Normal rate and regular rhythm. Pulses: Normal pulses. Heart sounds: Normal heart sounds. Pulmonary: Effort: Pulmonary effort is normal. Breath sounds: Normal breath sounds. Abdominal: General: There is no distension. Palpations: Abdomen is soft. Tenderness: There is no abdominal tenderness. Skin: General: Skin is warm. Capillary Refill: Capillary refill takes less than 2 seconds. Neurological: General: No focal deficit present. Mental Status: He is alert and oriented to person, place, and time. Cranial Nerves: No cranial nerve deficit. Sensory: No sensory deficit. Motor: No weakness. Psychiatric: Mood and Affect: Mood normal. Behavior: Behavior normal. Agree. 02/04 systolic murmur loudest over aortic window. Select Recent Labs BMP: Recent Labs 03/04/25 1100 03/05/25 0013 03/06/25 0605 NA 138 138 137 K 4.1 4.0 4.3 CL 110* 110* 111* CO2 23 19* 22 BUN 15 13 13 CREATININE 0.86 0.86 0.76 CALCIUM 9.0 8.5 8.5 LFTs: Recent Labs 03/04/25 1100 03/04/25 1209 AST 30 -- ALT 30 -- PROT 6.8 -- ALBUMIN 4.0 -- BILITOT 1.4* -- BILIRUBINU -- Negative ALKPHOS 45 -- Glucose: Recent Labs 03/04/25 1100 03/05/25 0013 03/06/25 0605 GLUCOSE 94 92 92 Procal: No results for input(s): PROCAL in the last 72 hours. CBC: Recent Labs 03/04/25 1100 03/05/25 0013 03/06/25 0605 WBC 8.0 8.1 6.2 HGB 14.0 13.3 13.6 HCT 41.9 39.6* 40.5 PLT 225 233 212 MCV 85.9 83.7 83.5 RDW 12.9 13.0 13.2 ABGs: No results for input(s): PHART, HZI0ISE, PO2ART, DBP6LVU, SO2ART, G7KYOOPW in the last 72 hours. Lactic Acid: No results for input(s): LACTATE in the last 72 hours. INR: Recent Labs 03/04/25 1100 INR 1.0 Cardiac Injury Profile: Recent Labs 03/04/25 1123 03/04/25 1321 03/05/25 0926 03/06/25 0605 TROPHSBASE 68* -- 120* -- TROPHS2 -- 116* -- 115* Labs in Last 3 months: Lab Results Component Value Date INR 1.0 03/04/2025 Assessment and Plan: Cryptogenic Ischemic stroke s/p TNK (03/04/25) Hypertension Hyperlipidemia Patient was initially admitted for mild slurring and slowing of speech, drooping of left side of face, left arm drift, and left sides hemiparesis. Initial NIH 5. Patient received TNK on 03/04. Interval NIHs were subsequently 0. Patient was transferred out of the ICU on 03/05. CT, CTA head/neck without acute process. MRI with small scattered punctate bi-hemispheric strokes. Plan: - Embolic stroke of unclear etiology, high concern for cardio-embolic event given bi-hemispheric stroke. At this time, primary differential is cardio-embolic from severely stenotic aortic valve - No evidence of afib on telemetry, continue to monitor - Patient will need telemetry monitoring OP to rule out pAF - Continue ASA 81 and Plavix 75 mg daily for 21 days then transition to ASA 81 mg - High intensity statin - Recommend tracking blood pressure at home - LDL 133, goal <70 - Recommend low salt, low cholesterol diet - Follow up with OP cryptogenic stroke clinic for OP event monitor - Follow up with OP neurology Agree with above. No a fib seen on tele. Will need follow up with neurology and will need minimum of 30 day holter--possibly longer. Calcifications from the aortic valve could also be cause of embolic stroke, though less likely. Severe symptomatic aortic stenosis Angina Dyspnea on exertion Prior history of syncope Patient mentioned he has been previously having significant shortness of breath with exertion. He is unable to climb one flight of stairs without being significantly short of breath. He states he's had a prior episode of syncope and endorses some intermittent chest tightness with exertion. TTE revealed severely calcified aortic cusps with severe stenosis of the aortic valve. Plan: - Consult cardiology to establish care for possible future surgical intervention with TVAR - Etiology of PADRON/angina highly suspicious for underlying aortic stenosis/calcification - Severe aortic stenosis suspected etiology of patient's cryptogenic stroke - Will follow up with cardiology's recs, we appreciate their help Agree. He endorses pretty limiting PADRON much worse last 4-6 weeks. I suspect the aortic stenosis is likely the cause. Will have cardiology see him here to arrange follow up as he may be TAVR candidate. Dispo and Barriers to Discharge: Patient is stable for discharge home pending cardiology's clearance - Goals of Care: FULL CODE - DVT Prophylaxis: Lovenox 40 q24hr - CrCl >30 - GI Prophylaxis: Not Indicated - Diet: General I have discussed the care of Bright Keen with the medical student and/or resident. I have personally taken a history, examined the patient, and performed the associated medical decision making activities. I have reviewed & verified the attested documentation. Unless otherwise noted above, this documentation reflects the history, physical exam, and medical decision making that I performed myself. Please see green and bolded text for my personal highlights or additions to the note. Patient seen and examined by myself on 03/06/25 >30 minutes spent on hospital DC Images from the original note were not included. PHYSICAL THERAPY [facility] Initial Evaluation Name/MRN: Bright Keen ([id number]) Evaluation Date: 03/05/2025 Date of : 1970 Admission Date: 03/04/2025 9:45 AM Age: 54 y.o. Room/Bed: T2-215/T2-215 A Discharge Recommendation: Home independently Equipment Needed: No Assessment IMPRESSION: Patient is a 54 yo male, admitted to [facility] for stroke like symptoms L UE/LE weakness. Weakness and other stroke like symptoms no resolved after treatment with TNK. Pt states that he was independent with all ADLs and functional mobility prior to admission. Patient was independent with all bed mobility, transfers, and ambulation. Patient able to ambulate around unit with minimal fatigue and gait deficits. Patient states that he lives with who is able to assist him if needed. PT recommends home independently. Pt has no acute PT needs will sign off. Admitting Diagnosis: troke like symptoms L UE/LE weakness. Prognosis: good Performance Deficits /Impairments: Decreased Endurance Decision Making: Low Complexity Subjective Pt supine in bed. Pt agreeable to PT. RN cleared to work with. Pain: Pt denies any current pain. Past Medical History: No past medical history on file. Past Surgical History: No past surgical history on file. Admission Diagnosis: Patient Active Problem List Diagnosis Date Noted Stroke-like symptoms 03/04/2025 Medical Precautions: No active isolations Proper PPE donned/doffed in accordance with facility standards. Fall Risk: De La Torre Fall Risk Score: 20 (Low Risk) Precautions/Restrictions: n/a Family/Caregiver Present: spouse Overall Cognitive Status: WFL Overall Orientation Status: Oriented x4 Vision: Not Assessed Hearing: normal Social/Functional History Patient admitted from home. Lives With: Spouse Type of Home: single family home Home Layout: Two Level Home and Able to Live on Main Level Home Access: Level Entry Bathroom Shower/Tub: Toilet: Standard Home Equipment: none Homemaking Responsibilities: Independent Receives Help From: None Active Community Director: Prior Level of Function Prior Level of ADL Function: Independent Prior Level of Mobility: Independent; Device: None Prior Level of Transfers: Independent Objective Lower Extremity Assessment AROM: WFL PROM: WFL Strength: 5/5 Sensation: WFL Balance: Balance During Session: Posture: good Sitting - Static: Independent Sitting - Dynamic: Independent Standing - Static: Independent Standing - Dynamic: Independent Bed Mobility: Supine to sit: Independent Sit to supine: Independent Transfers Sit to stand: Independent Stand to sit: Independent Ambulation Ambulation 1 Assistive device(s) used: None Assist level: Independent Distance (ft): 350 Quality of gait: No gait deviations, No LOB Patient able to ambulate with minimal fatigue, and no SOB. Upper Extremity: WFL Outcome Measures AM-PAC How much HELP from another person do you currently need Turning from your back to your side while in a flat bed without using bedrails?: None Moving from lying on your back to sitting on the side of a flat bed without using bedrails?: None Moving to and from a bed to a chair (including a wheelchair)?: None Standing up from a chair using your arms (wheelchair or bedside chair)?: None Walking in a hospital room?: None Stair climbing assessed?: No AM-PAC Inpatient Mobility Raw Score (No Stairs) : 20 JH-HLM JH-HLM Score: Walked 250 ft or more (i.e. several laps on unit) Plan No skilled acute PT indicated at this time. Please reconsult should changes occur. Safety/Education Safety Safety Devices in place: call light within reach and left in bed Restraints: No Education Education Given To: patient Education Provided: PT Role, PT Goals, Plan of Care, and Discharge Recommendations Education Method: Verbal Barriers to Learning: None Education Outcome: Verbalized Understanding Goals Patient Stated Goal: Pt wants to go home. Therapy Time Individual Co-Treatment Co-Evaluation Time In 1340 Time Out 1351 Minutes 11 Timed Code Treatment Minutes: (low eval) [place] Patient's Physical Therapy Plan of Care supervision is transferred to a [facility] Services Physical Therapist. Goals and/or treatment plan was established in collaboration with patient/family/other representatives. Cosigned by Shannan Mcneill PT at 03/05/2025 3:06 PM EDT Nutrition Assessment Type and Reason for Visit: Initial (ICU screen) Nutrition Recommendations/Plan: Continue current diet RD signing off, dietitian helper to follow Malnutrition Assessment: Malnutrition Status: No malnutrition Context: Acute Illness Findings of the 6 clinical characteristics of malnutrition: Energy Intake: No significant decrease in energy intake Weight Loss: No significant weight loss Body Fat Loss: No significant body fat loss Muscle Mass Loss: No significant muscle mass loss Fluid Accumulation: No significant fluid accumulation Clinical Program Director Strength: Not Performed Nutrition Assessment: Bright Keen is a 54 yo male with a PMHx of reported hypertension (w/ no official diagnosis) who is admitted to the ICU from OSH for stroke-like symptoms including left upper and lower extremity weakness. Patient developed sudden onset left upper and left lower extremity weakness at approximately 5:50 am today morning, last known well at 5:30am. He developed mild slurring and slowing of speech, drooping of left side of face, left arm drift, and left sides hemiparesis. He was taken to the ED and was rated at a NIHSS of 5 and given TNK at 0723. CTA reported negative, CT wo contrast done at OSH unable to be viewed. Patient states his symptoms dramatically improved after administration of TNK. Patient was then transferred to [facility]. On arrival, NIHSS 0. Patient also states he has had urinary retention and problems with urinary flow since ~6 weeks ago. Reports one month of SOB with exertion. Patient is not on any medications and does not have allergies. He consumes no alcohol, tobacco, or recreational drugs. 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 He does not regularly exercise. Patient on regular diet eating well. Patient denies all nutritional concerns at this time. He reports eating 3 meals a day and no loss of appetite. Denies food allergies and chewing/swallowing difficulties. Patient said he wanted to lose weight and we talked about added sugar, CHO intake and protein. RD signing off, dietitian helper to follow. Estimated Daily Nutrient Needs: Energy Requirements Based On: Kcal/kg Weight Used for Energy Requirements: Admission Weight for Energy Calculation (kg): 123 kg Total Energy Requirements (kcals/day): 2327-0503 Weight Used for Protein Requirements: Admission Weight in Kg Used for Protein Requirements: 123 kg Estimated Total Protein (g/day): 98 Estimated Daily Total Fluid (ml/day): Nutrition Related Findings: , Orientation Level: Oriented X4, Cognition: Appropriate judgement, Appropriate safety awareness, Appropriate attention/concentration, Appropriate for developmental age, Follows commands, Best Verbal Response: Oriented, Teeth: Intact Archie Scale Score: 22. Wound Type: None Net IO Since Admission: 219 mL [03/05/25 1127] Gastrointestinal (WDL): Within Defined Limits Bowel Sounds (All Quadrants): Active Abdomen Inspection: Soft, Rounded Last BM Date: 03/05/25, Stool Appearance: Unable to assess, Stool Color: Unable to assess Edema: , RUE Edema: None, LUE Edema: None, RLE Edema: None, LLE Edema: None Oxygen Therapy: None (Room air), , Labs and meds reviewed: Scheduled: aspirin, 81 mg, Oral, Daily atorvastatin, 40 mg, Oral, Daily clopidogrel, 75 mg, Oral, Daily enoxaparin, 40 mg, SubCUTAneous, Daily mupirocin, 1 Application, Nasal, BID Current Nutrition Therapies: Adult diet Regular Current Oral Intake Average Meal Intake: 76-100% Average Supplements Intake: None Ordered Anthropometric Measures: Current Body Weight: 123 kg (271 lb) Weight Source: Bed Scale Admission Body Weight: 123 kg (271 lb) Weight Adjustment For: No Adjustment Nutrition Diagnosis: No nutrition diagnosis at this time Nutrition Interventions: Nutrition Education/Counseling: No recommendation at this time Coordination of Nutrition Care: No recommendation at this time Nutrition Monitoring and Evaluation: Behavioral-Environmental Outcomes: None Identified Food/Nutrient Intake Outcomes: None Identified Physical Signs/Symptoms Outcomes: None Identified Discharge Planning: No discharge needs at this time Pricilla Monge RD Contact: available via AMSC or *[id number] ICU Transfer Checklist Transfer Med Reconciliation (resume home meds if able, convert to PO if able) Complete Antibiotics (name, indication, duration, convert to PO if able) None Steroid (indication, duration, convert to PO if able) None Anticipated [place] Medications (ICU initiated) or Dose Changes and Indication Yes, indication stroke - Statin - Likely will need anti-HTN Permanently Discontinued Home Medications and Reason for medication contraindication No Matias Catheter (please remove if able. Note: place DC order) No Central Line (please remove if able. Note: place DC order) No Transfer Discussed with: Dr. Queen, Med team C accepting under Dr. Inman If additional questions for ICU team within 24 hours of ICU transfer, page Chad Ortiz MD for clarifications. PROGRESS NOTE: STROKE SERVICE Patient Name:Bright Keen Patient : 1970 Chief complaint: L sided weakness Hospital Summary: 54M no significant PMH presented to OSH 03/04 with acute onset of L sided weakness. NIHSS 0. CT, CTA head/neck without acute process. Treated with TNK 0723 and transferred to [facility]. MRI with small scattered punctate bi-hemispheric strokes. Interval History: Feeling well, no new complaints. Medications: Scheduled Meds: atorvastatin, 40 mg, Oral, Daily mupirocin, 1 Application, Nasal, BID PRN Meds: PRN medications: acetaminophen OR acetaminophen, bisacodyl, hydrALAZINE, labetalol, LORazepam, ondansetron ODT OR ondansetron, polyethylene glycol (PEG) 3350 Allergies: Patient has no known allergies. Review of Systems Constitutional: Negative for fatigue and unexpected weight change. HENT: Negative for trouble swallowing. Eyes: Negative for visual disturbance. Respiratory: Negative for cough and shortness of breath. Cardiovascular: Negative for chest pain and palpitations. Gastrointestinal: Negative for diarrhea and nausea. Genitourinary: Negative for dysuria. Musculoskeletal: Negative for back pain and gait problem. Neurological: Negative for dizziness, tremors, seizures, syncope, facial asymmetry, speech difficulty, weakness, light-headedness, numbness and headaches. Psychiatric/Behavioral: Negative for confusion. The patient is not nervous/anxious. Physical Examination: Patient Vitals for the past 8 hrs: BP Temp Temp src Pulse Resp SpO2 Weight 03/05/25 0700 (!) 145/104 -- -- 83 16 97 % -- 03/05/25 0600 135/89 -- -- 71 13 96 % -- 03/05/25 0500 119/87 -- -- 67 14 95 % -- 03/05/25 0400 132/85 36.6 C (97.9 F) Temporal 68 12 96 % -- 03/05/25 0300 110/72 -- -- 72 13 97 % -- 03/05/25 0200 110/75 -- -- 70 14 96 % -- 03/05/25 0100 118/78 -- -- 74 15 95 % -- 03/05/25 0000 133/86 36.7 C (98 F) Temporal 78 19 97 % 123 kg (271 lb 13.2 oz) I/O last 3 completed shifts: In: 1694 (13.7 mL/kg) [P.O.:940; I.V.:754 (6.1 mL/kg)] Out: 1475 (12 mL/kg) [Urine:1475 (0.3 mL/kg/hr)] Weight: 123.3 kg General Physical Examination: General: Awake HEENT:Normocephalic, atraumatic CV: S1+S2, RRR, no MRG. Pulm:CTA b/l, unlabored Abdomen: Soft NT/ND. BS + Skin: Intact without ulcers, breakdowns or discoloration Extremities: normal with no edema or cyanosis Orthopedic limitation; No Pulses: Intact peripherally Carotid auscultation :No bruits Neurological Examination: Higher Functions: Mental Status Exam: Level of Alertness:Awake Orientation: Normal to self, time, place Memory: Normal Fund of Knowledge: Normal Language: Normal Dysarthria not present Cranial Nerves: -II Visual acuity: normal -II Visual dillon: normal -III Pupils (~ 3 mm OD, 3 mm OU) equal, round, reactive to light -III-IV- Extraocular Movements: intact -Nystagmus not present -Saccades and pursuits normal -V Facial sensation: intact Corneal's Intact bilateral -VII Facial strength: intact -VIII Hearing: intact -IX-X- Gag reflex present -X Palate:intact -XI Shoulder shrug: intact -XII Tongue movement: normal Motor Examination: Tone after evaluation of 4 limbs, the following findings applied: Normal -Bulk: normal -Muscle Stretchafter evaluation of all limbs, and axial musculature the following findings applied: Drift: absent, very minimal weakness against resistance to LUE normal -Reflexes: after evaluation of 4 limbs, the following findings applied ; normal all limbs -Plantar responce: Flexor bilaterally Sensory Intact to light touch, pain / temperature, proprioception, Coordination: Arms Normal finger to nose Legs Intact heel knee rothman testing Tremors not present Gait normal NIH Stroke Score: 0 ANCILLARY Lipids: Recent Labs 03/05/25 0013 CHOL 177 TRIG 44 HDL 35* Cardiac testing: EKG: Sinus rhythm Normal [place] No ST or T wave changes Radiology/imaging personal review: CT Head OSH 03/04/25: Reported no acute process CTA head/neck OSH 03/04/25: Reviewed in PACS, minimal R ICA atherosclerosis <50% ASSESSMENT / PLAN/RECOMMENDATIONS: L sided weakness s/p TNK for ischemic stroke with bi-hemispheric scattered ischemic strokes - Etiology: Embolic stroke of unclear etiology, high concern for cardio-embolic event given bi-hemispheric strokes - OK for normotension - ASA 81, Plavix 75 for 21 days followed by ASA 81 - Atorvastatin 40 - TTE pending, ?need for KATY. If work-up negative will need to follow up with OP cryptogenic stroke clinic for OP event monitor - Follow up with OP neurology Mild HTN - Goals as above - Suggest BP diary at home HLD - LDL 133, goal <70 Elevated troponin - 68-->116 - Trend - TTE pending Obesity - [place] on diet/lifestyle changes Recent SOB - Work-up per primary team OK to transfer to floor. Further recs after review of echo. 30 minutes of my independent time was spent preparing to see the patient, obtaining/reviewing separately obtained history, completing an appropriate medical examination of the patient, ordering medications/tests/procedures, documenting clinical information on the EMR, and/or coordinating care. An additional 5 minutes was spent discussing assessment/plan with Dr. Rodney. ICU Progress Note Name: Bright Keen : 1970(54 y.o.) Date: 03/05/25 Team: MICU Attending: Dr. Wellington Subjective: Hospital Summary: Bright Keen is a 54 yo male with a PMHx of reported hypertension (w/ no official diagnosis) who was admitted to the ICU from OSH for stroke-like symptoms including left upper and lower extremity weakness. Patient developed sudden onset left upper and left lower extremity weakness at approximately 5:50 am today morning, last known well at 5:30am. He developed mild slurring and slowing of speech, drooping of left side of face, left arm drift, and left sides hemiparesis. He was taken to the ED and was rated at a NIHSS of 5 and given TNK at 0723. CTA reported negative, CT wo contrast done at OSH unable to be viewed. Patient states his symptoms dramatically improved after administration of TNK. Patient was then transferred to [facility]. On arrival, NIHSS 0. Interval Events: Patient's vitals were stable overnight. No significant overnight events. Patient was examined at bedside and was sitting in his chair about to eat breakfast. He states he was able to ambulate like normal and feels more myself. Scheduled Meds:atorvastatin, 40 mg, Oral, Daily mupirocin, 1 Application, Nasal, BID Continuous Infusions:sodium chloride, 75 mL/hr, Last Rate: Stopped (03/04/25 2200) Objective: Last Vitals: BP MAP 135/89 (03/05/25 06) 104 (03/05/25 06) Arterial BP MAP Temp 36.6 C (97.9 F) (03/05/25 0400) Pulse 71 (03/05/25599) Resp 13 (03/05/25599) SpO2 96 % (03/05/25599) Weight 123 kg (271 lb 13.2 oz) (03/05/25 0000) BMI There is no height or weight on file to calculate BMI. I/O: 03/04 700 - 03/05 659 In: 1694 [P.O.:940; I.V.:754] Out: 1475 [Urine:1475] Ventilator: Oxygen Delivery: Invasive Lines / Tubes / Drains: Peripheral IV Left Hand (Active) Number of days: Peripheral IV 03/04/25 Anterior;Distal;Right;Upper Arm (Active) Number of days: 0 Central Line Indication: NA - patient does not have a central line Matias Indications: NA - patient does not have a Matias catheter Restraints: NA - patient is not restrained. Wounds: Constitutional: General Appearance [x]WDWN [x]Obese []Cachectic []Thin []Ill Eyes: Inspection of Pupils/Irises Pupils round and react: [x]Yes []No Sclera: []Icteric []Non-Icteric Inspection of Conjunctiva/Lids Conjunctiva: []Injected [x]Non-Injected Lids: []Intact []Lesion Present ENT/Mouth: External Inspection of ears/nose [] Normal [] Scar/Lesion/Mass Inspection of teeth/lips/gums Dentition: []Ione Teeth []Dentures Lips/Gums: []Intact []Lesion Present Mucosa: [][place] []Moist []Dry Neck: External Appearance Overall Appearance: []Normal []Lesion/Mass/Crepitus Present Trachea midline: []Yes []No Thyroid []Normal []Enlarged []Tender []Mass []Absent Respiratory: Respiratory effort []Labored [x]Non-Labored [] Mechanically-Ventilated Auscultation [x]Clear []Crackles []Wheezes []Rhonchi Cardiovascular: Auscultation Rate: [x]Regular []Irregular []Tachycardia []Bradycardia Rhythm: [x]Regular []Irregular Murmur: []Present []Absent Extremities Peripheral Edema: []Present [x]Absent Varicosities: []Present []Absent Gastrointestinal: Abdomen Palpation: []Soft []Firm []Tender []Non-Tender []Distended []Non-distended Mass: []Present []Absent Bowel Sounds: []Present []Absent Hernia: []Present []Absent Liver/Spleen: []Hepatosplenomegaly []Organomegaly Absent Musculoskeletal: Inspection of Digits and Nails Cyanosis: []Present []Absent Clubbing: []Present []Absent Ischemia: []Present []Absent Infection: []Present []Absent Extremities HENDERSON Equally: Except ([]RUE []RLE []LUE []LLE) Strength/Tone: Intact and Normal ([x]RUE [x]RLE [x]LUE [x]LLE) Skin: Inspection [x]Normal []Rash []Lesion []Ulcer Palpation []Warm []Cool []Dry []Clammy []Nodules []Induration []Skin-tightening Cap-Refill: [] <3 sec [] >3 seconds (delayed) Neurologic: GCS EYE: 4 - Opens spontaneously GCS MOTOR: 6 - Obeys commands for movement GCS VERBAL: 5 - Oriented to person, place, time Total GCS: 15 NIHSS: 0 [] Sensation grossly intact Psych: Mental Status Alert: [x]Yes [] No Oriented: []x0 []X1 []X2 [x]x3 Mood/Affect [x]Normal []Flat []Agitated []Depressed []Anxious []Calm []Sedated []NAD Select Labs within last 24 hours- BMP: Recent Labs 03/04/25 1100 03/05/25 0013 NA 138 138 K 4.1 4.0 CL 110* 110* CO2 23 19* BUN 15 13 CREATININE 0.86 0.86 CALCIUM 9.0 8.5 LFTs: Recent Labs 03/04/25 1100 03/04/25 1209 AST 30 -- ALT 30 -- PROT 6.8 -- ALBUMIN 4.0 -- BILITOT 1.4* -- BILIRUBINU -- Negative ALKPHOS 45 -- Glucose: Recent Labs 03/04/25 1100 03/05/25 0013 GLUCOSE 94 92 Procal: No results for input(s): PROCAL in the last 72 hours. CBC: Recent Labs 03/04/25 1100 03/05/25 0013 WBC 8.0 8.1 HGB 14.0 13.3 HCT 41.9 39.6* PLT 225 233 MCV 85.9 83.7 RDW 12.9 13.0 ABGs: No results for input(s): PHART, ORH5SYP, PO2ART, UCP5YAQ, SO2ART, L2YGHVAF in the last 72 hours. Lactic Acid: No results for input(s): LACTATE in the last 72 hours. INR: Recent Labs 03/04/25 1100 INR 1.0 Cardiac Injury Profile: No results for input(s): CKTOTAL, CKMB, TROPONINI in the last 72 hours. Labs in Last 3 months: Lab Results Component Value Date INR 1.0 03/04/2025 Microbiology- Urine Cx: No results found for: URINECX Blood Cx: No results found for: BLOODCX Sputum Cx: No results found for: RESPCULT Gram Stain: No results found for: LABGRAM PNA PCR: No results found for: HUMANMETAPNE COVID19: No results found for: COVID19 Legionella Ag: No results found for: LEGIONELLAPN Strep Ag: No results for input(s): STREPPNEUMO in the last 72 hours. Imaging- pending Assessment and Plan: Principal Problem: Stroke-like symptoms This is a FULL CODE 54 year old male w/ no reported PMH who was tsf to [facility] ED after TNK administration for ischemic stroke at OSH. Initially had left sided hemiparesis which has since fully resolved w/ TNK. NIH 0 while at [facility]. Cause of stroke unknown at this time Assessment: Cryptogenic Ischemic stroke s/p TNK (03/04/25) Hypertension Urinary retention Elevated troponin Plan: Post-TNK protocol in place Neurocritical care following, appreciate recommendations Goal SBP <180 mmHg, DBP <105 mmHg, MAP >65 mmHg PRN labetalol for SBP > 180 or DBP > 105, hydralazine second line. No antiplatelets/antiothrombotics in first 24 hours after tPA MRI brain without contrast pending CTA at OSH negative per patient. TTE pending Lipid panel shows elevated LDL at 133, low HDL at 35 Trend high sensitivity troponins. Continuous telemetry Fall precautions Urinalysis with urine culture, bladder scan PT/OT consulted Adult regular diet Neurochecks q15 minutes x 1 hour, followed by q30 minutes x 6 hours and then q1h x 24 hours GI Prophylaxis: Not indicated DVT Prophylaxis: Holding per neurology request Disposition: Transfer to neurology floor Critical Care Time: Total critical care time caring for this patient with life threatening, unstable organ failure, including direct patient contact, management of life support systems, review of data including imaging and labs, discussions with other team members and physicians, excluding procedures. I performed a history and physical examination of the patient and discussed his management with the medical student. I reviewed the medical student note and agree with the documented findings and plan of care. My additional input is written in above. Cosigned by Jadiel Wellington DO at 03/05/2025 3:04 PM EDT Associated attestation - Jadiel Wellington DO - 03/05/2025 3:04 PM EDT I have personally performed a [id number] diagnostic evaluation on this patient on date of service 03/05/25. History, labs, imaging studies, and electronic medical record have been reviewed by me. This note documented by the [x]mixing house operator []DEJA reflects my history, exam, and medical decision making. I have reviewed and agree with the care plan. Changes were made in the orders as necessary. ROS documentation was reviewed and negative unless otherwise stated in HPI. Additional pertinent interval history, ROS, and physical exam findings: No events overnight, doing well. Feels better than yesterday with no new complaints Assessment: CVA symptoms Post TNK Plan: Transfer to floors Neuro following PT/OT/POLICE RESERVES COMMANDER Images from the original note were not included. PHYSICAL THERAPY [facility] Name/MRN: Bright Keen ([id number]) Date: 03/04/2025 PT orders received. Pt with active strict bedrest orders. Will attempt eval with updated activity orders. Shannan Mcneill PT Images from the original note were not included. OCCUPATIONAL THERAPY [facility] Name/MRN: Bright Osmani ([id number]) Date: 03/04/2025 OT orders received, chart reviewed. Pt currently with bedrest orders. Hold OT pending upgraded activity orders. Will re-attempt as schedule permits. Maria Del Carmen Gonzalez OTR/L Speech-Language Pathology Patient passed the Nursing Swallowing Screening. As per stroke policy, no formal dysphagia evaluation is required. Completed speech orders. documented in this encounter [facility] 03-06-2025 Nurse Note Discharge instructions given to patient and reviewed with him. Patient verbalized understanding. documented in this encounter [facility] 03-06-2025 Telephone encounter Note Erroneous encounter, please disregard [facility] 03-06-2025 Miscellaneous Notes Erroneous encounter, please disregard documented in this encounter [facility] 03-06-2025 Plan of care note [facility] 03-06-2025 Miscellaneous Notes Met with patient gave him PCP follow up information. Discussed Neurology follow up and he would like referral sent to [facility] in [place] they are accepting new patients. Patient has PCP follow up scheduled. What's Next What's Next Follow up with Dr Asher Rahman Mar Follow up from hospital stay at 08:[address] , [place] [address] Care Management Progress Note Reviewed chart. From home. Works at [employer]. Neuro critical following. IVF. MRI brain ordered. Echo ordered. PT/OT ordered. Consult neurology. Await treatment plan and clinical progress. manager unit will continue to follow for transitional care needs and discharge planning. Will follow. Length of Stay (Days): 1 GMLOS: No GMLOS Documented documented in this encounter [facility] 03-06-2025 Note Internal Medicine: M ed Team Discharge Summary Bright Keen : 1970 ADMIT DATE: 03/04/2025 DISCHARGE DATE: 03/06/25 PCP: No primary care provider on file. Visit Status: Admission Code Status: FULL CODE Primary Discharge Diagnosis: Cryptogenic Ischemic stroke s/p TNK (03/04/25) Secondary Discharge Diagnoses: Severe symptomatic aortic stenosis HTN HLD Morbid Obesity BMI 38 Reason for Admission & Hospital Course: Bright Keen is a 54 y.o. male that presented to [facility] on 03/04/2025 and was admitted for left sided weakness, dysarthria, and facial droop found to have small scattered punctuate bi-hemispheric strokes. Bright Keen is a 54 yo male with a PMHx of reported hypertension who was initially admitted to the ICU from OSH for stroke-like symptoms including mild slurring and slowing of speech, drooping of left side of face, left arm drift, and left sided hemiparesis. At OSH ED, his initial NIHSS was 5. He was subsequently given TNK and transferred to [facility] ICU. Following TNK administration, patient reported immediate drastic improvement in his symptoms with subsequent neuro exams showing NIHSS 0. MRI revealed four tiny acute embolic infarcts in the right frontal and occipital lobes, and left parietal lobe. He was quickly transferred out of the ICU to [facility] on telemetry with complete resolution of his stroke-like symptoms. Patient underwent TTE which revealed severe aortic stenosis concerning for potential etiology of cryptogenic stroke. Patient was started on ASA 81 and Plavix 75 mg daily for 21 days with plans to transition to ASA 81 mg. Given symptomatic aortic stenosis with reported anginal sx and PADRON, cardiology was consulted for potential TVAR intervention. Cardiology elected to manage him outpatient and patient was cleared for discharge. Disposition: Home Activity: No restriction. Diet: Adult diet Regular Discharge Medications: Medication List START taking these medications aspirin 81 MG chewable tablet Chew 1 tablet (81 mg) daily. Start taking on: March 07, 2025 atorvastatin 40 MG tablet Commonly known as: Lipitor Take 1 tablet (40 mg) by mouth daily. Start taking on: March 07, 2025 clopidogrel 75 MG tablet Commonly known as: Plavix Take 1 tablet (75 mg) by mouth daily for 19 days. Start taking on: March 07, 2025 Where to Get Your Medications These medications were sent to [facility] [address] [place], [place] [address] Hours: Saturday to Saturday 10 am to 6 pm aspirin 81 MG chewable tablet atorvastatin 40 MG tablet clopidogrel 75 MG tablet Notable Medication Changes & Reasoning: Continue Aspirin 81 mg once daily and Plavix 75 mg once daily for 21 days then transition to Aspirin 81 mg indefinitely Start taking atorvastatin 40 mg oral daily Consultants Neuro critical care, cardiology Procedures Performed None Significant Laboratory/Radiographic Data: MRI brain revealed four tiny acute embolic infarcts in the right frontal and occipital lobes, and left parietal lobe. TTE revealed severe stenosis of the aortic valve with moderately thickened cusps Pending Results at Time of Discharge None Follow Up Appointment(s): Follow up appointment scheduled as stated below: No future appointments. Items to Address at Followup Visit: Address patient's symptomatic severe aortic stenosis. Patient should follow closely with cardiology regarding need for TVAR. Follow up on anginal and PADRON symptoms. Given recent stroke, address any further stroke-like symptoms and medication compliance. [facility] 03-06-2025 Hospital course Narrative Internal Medicine: Med Team Discharge Summary Bright Keen : 1970 ADMIT DATE: 03/04/2025 DISCHARGE DATE: 03/06/25 PCP: No primary care provider on file. Visit Status: Admission Code Status: FULL CODE Primary Discharge Diagnosis: Cryptogenic Ischemic stroke s/p TNK (03/04/25) Secondary Discharge Diagnoses: Severe symptomatic aortic stenosis HTN HLD Morbid Obesity BMI 38 Reason for Admission & Hospital Course: Bright Keen is a 54 y.o. male that presented to [facility] on 03/04/2025 and was admitted for left sided weakness, dysarthria, and facial droop found to have small scattered punctuate bi-hemispheric strokes. Bright Keen is a 54 yo male with a PMHx of reported hypertension who was initially admitted to the ICU from OSH for stroke-like symptoms including mild slurring and slowing of speech, drooping of left side of face, left arm drift, and left sided hemiparesis. At OSH ED, his initial NIHSS was 5. He was subsequently given TNK and transferred to [facility] ICU. Following TNK administration, patient reported immediate drastic improvement in his symptoms with subsequent neuro exams showing NIHSS 0. MRI revealed four tiny acute embolic infarcts in the right frontal and occipital lobes, and left parietal lobe. He was quickly transferred out of the ICU to [facility] on telemetry with complete resolution of his stroke-like symptoms. Patient underwent TTE which revealed severe aortic stenosis concerning for potential etiology of cryptogenic stroke. Patient was started on ASA 81 and Plavix 75 mg daily for 21 days with plans to transition to ASA 81 mg. Given symptomatic aortic stenosis with reported anginal sx and PADRON, cardiology was consulted for potential TVAR intervention. Cardiology elected to manage him outpatient and patient was cleared for discharge. Disposition: Home Activity: No restriction. Diet: Adult diet Regular Discharge Medications: Medication List START taking these medications aspirin 81 MG chewable tablet Chew 1 tablet (81 mg) daily. Start taking on: March 07, 2025 atorvastatin 40 MG tablet Commonly known as: Lipitor Take 1 tablet (40 mg) by mouth daily. Start taking on: March 07, 2025 clopidogrel 75 MG tablet Commonly known as: Plavix Take 1 tablet (75 mg) by mouth daily for 19 days. Start taking on: March 07, 2025 Where to Get Your Medications These medications were sent to [facility] [address] [place] [address] Hours: Saturday to Saturday 10 am to 6 pm aspirin 81 MG chewable tablet atorvastatin 40 MG tablet clopidogrel 75 MG tablet Notable Medication Changes & Reasoning: Continue Aspirin 81 mg once daily and Plavix 75 mg once daily for 21 days then transition to Aspirin 81 mg indefinitely Start taking atorvastatin 40 mg oral daily Consultants Neuro critical care, cardiology Procedures Performed None Significant Laboratory/Radiographic Data: MRI brain revealed four tiny acute embolic infarcts in the right frontal and occipital lobes, and left parietal lobe. TTE revealed severe stenosis of the aortic valve with moderately thickened cusps Pending Results at Time of Discharge None Follow Up Appointment(s): Follow up appointment scheduled as stated below: No future appointments. Items to Address at Followup Visit: Address patient's symptomatic severe aortic stenosis. Patient should follow closely with cardiology regarding need for TVAR. Follow up on anginal and PADRON symptoms. Given recent stroke, address any further stroke-like symptoms and medication compliance. documented in this encounter [facility] 03-06-2025 Note Med Team Progress No te Brightahsan Keen : 1970(54 y.o.) Date: March 06, 2025 Med Team: Kristin Attending: Dr. Woody Chief Complaint: Left sided weakness Subjective: - No acute events overnight. - Currently, patient is resting in bed comfortably accompanied by his . He denies any acute complaints and states he feels completely back to normal. He has regained full strength and sensation on his left side and denies any abnormalities in his mental clarity, speech, or language. Patient requested to go home this evening so he could attend his hindu orthodox tomorrow. Additionally, patient mentioned he has been previously having significant shortness of breath with exertion. He is unable to climb one flight of stairs without being significantly short of breath. He states he's had a prior episode of syncope and endorses some intermittent chest tightness with exertion. PRN meds used in last 24hrs: Ativan 1 mg x1 Patient seen and examined on teaching rounds this AM. I agree with the above. Review of Systems Constitutional: Negative for diaphoresis and fatigue. Eyes: Negative for visual disturbance. Respiratory: Negative for chest tightness, shortness of breath and wheezing. Cardiovascular: Negative for chest pain, palpitations and leg swelling. Gastrointestinal: Negative for abdominal distention, diarrhea and nausea. Musculoskeletal: Negative. Neurological: Negative for dizziness, seizures, facial asymmetry, speech difficulty, weakness, numbness and headaches. Scheduled Meds:aspirin, 81 mg, Oral, Daily atorvastatin, 40 mg, Oral, Daily clopidogrel, 75 mg, Oral, Daily enoxaparin, 40 mg, SubCUTAneous, Daily mupirocin, 1 Application, Nasal, BID Continuous Infusions: Objective: BP 114/83 (BP Location: Left arm, Patient Position: Lying) Pulse 71 Temp (!) 35.9 ?C (96.7 ?F) (Temporal) Resp 16 Ht 5' 10 (1.778 m) Wt 271 lb (123 kg) SpO2 98% BMI 38.88 kg/m? Physical Exam Constitutional: Appearance: Normal appearance. He is obese. HENT: Mouth/Throat: Mouth: Mucous membranes are dry. Eyes: Extraocular Movements: Extraocular movements intact. Pupils: Pupils are equal, round, and reactive to light. Cardiovascular: Rate and Rhythm: Normal rate and regular rhythm. Pulses: Normal pulses. Heart sounds: Normal heart sounds. Pulmonary: Effort: Pulmonary effort is normal. Breath sounds: Normal breath sounds. Abdominal: General: There is no distension. Palpations: Abdomen is soft. Tenderness: There is no abdominal tenderness. Skin: General: Skin is warm. Capillary Refill: Capillary refill takes less than 2 seconds. Neurological: General: No focal deficit present. Mental Status: He is alert and oriented to person, place, and time. Cranial Nerves: No cranial nerve deficit. Sensory: No sensory deficit. Motor: No weakness. Psychiatric: Mood and Affect: Mood normal. Behavior: Behavior normal. Agree. 3/6 systolic murmur loudest over aortic window. Select Recent Labs BMP: Recent Labs 03/04/25 1100 03/05/25 0013 03/06/25 0605 NA 138 138 137 K 4.1 4.0 4.3 CL 110* 110* 111* CO2 23 19* 22 BUN 15 13 13 CREATININE 0.86 0.86 0.76 CALCIUM 9.0 8.5 8.5 LFTs: Recent Labs 03/04/25 1100 03/04/25 1209 AST 30 -- ALT 30 -- PROT 6.8 -- ALBUMIN 4.0 -- BILITOT 1.4* -- BILIRUBINU -- Negative ALKPHOS 45 -- Glucose: Recent Labs 03/04/25 1100 03/05/25 0013 03/06/25 0605 GLUCOSE 94 92 92 Procal: No results for input(s): PROCAL in the last 72 hours. CBC: Recent Labs 03/04/25 1100 03/05/25 0013 03/06/25 0605 WBC 8.0 8.1 6.2 HGB 14.0 13.3 13.6 HCT 41.9 39.6* 40.5 PLT 225 233 212 MCV 85.9 83.7 83.5 RDW 12.9 13.0 13.2 ABGs: No results for input(s): PHART, QCY1MLI, PO2ART, GXF2TGY, SO2ART, V6UBGMNN in the last 72 hours. Lactic Acid: No results for input(s): LACTATE in the last 72 hours. INR: Recent Labs 03/04/25 1100 INR 1.0 Cardiac Injury Profile: Recent Labs 03/04/25 1123 03/04/25 1321 03/05/25 0926 03/06/25 0605 TROPHSBASE 68* -- 120* -- TROPHS2 -- 116* -- 115* Labs in Last 3 months: Lab Results Component Value Date INR 1.0 03/04/2025 Assessment and Plan: Cryptogenic Ischemic stroke s/p TNK (03/04/25) Hypertension Hyperlipidemia Patient was initially admitted for mild slurring and slowing of speech, drooping of left side of face, left arm drift, and left sides hemiparesis. Initial NIH 5. Patient received TNK on 03/04. Interval NIHs were subsequently 0. Patient was transferred out of the ICU on 03/05. CT, CTA head/neck without acute process. MRI with small scattered punctate bi-hemispheric strokes. Plan: - Embolic stroke of unclear etiology, high concern for cardio-embolic event given bi-hemispheric stroke. At this time, primary differential is cardio-embolic from severely stenotic aortic valve - No evidence of afib on telemetry, pablo (more content not included)... [facility] 03-05-2025 Note Formatting of this n ote might be different from the original. Met with patient gave him PCP follow up information. Discussed Neurology follow up and he would like referral sent to [facility] in [place] they are accepting new patients. [facility] 03-05-2025 Note Formatting of this n ote might be different from the original. Met with patient gave him PCP follow up information. Discussed Neurology follow up and he would like referral sent to [facility] in [place] they are accepting new patients. [facility] 03-05-2025 Note Met with patient lucas e him PCP follow up information. Discussed Neurology follow up and he would like referral sent to [facility] in [place] they are accepting new patients. [facility] 03-05-2025 Note PHYSICAL THERAPY [facility] Initial Evaluation Name/MRN: Bright Keen ([id number]) Evaluation Date: 03/05/2025 Date of : 1970 Admission Date: 03/04/2025 9:45 AM Age: 54 y.o. Room/Bed: T2-215/T2-215 A Discharge Recommendation: Home independently Equipment Needed: No Assessment IMPRESSION: Patient is a 54 yo male, admitted to [facility] for stroke like symptoms L UE/LE weakness. Weakness and other stroke like symptoms no resolved after treatment with TNK. Pt states that he was independent with all ADLs and functional mobility prior to admission. Patient was independent with all bed mobility, transfers, and ambulation. Patient able to ambulate around unit with minimal fatigue and gait deficits. Patient states that he lives with who is able to assist him if needed. PT recommends home independently. Pt has no acute PT needs will sign off. Admitting Diagnosis: troke like symptoms L UE/LE weakness. Prognosis: good Performance Deficits /Impairments: Decreased Endurance Decision Making: Low Complexity Subjective Pt supine in bed. Pt agreeable to PT. RN cleared to work with. Pain: Pt denies any current pain. Past Medical History: No past medical history on file. Past Surgical History: No past surgical history on file. Admission Diagnosis: Patient Active Problem List Diagnosis Date Noted Stroke-like symptoms 03/04/2025 Medical Precautions: No active isolations Proper PPE donned/doffed in accordance with facility standards. Fall Risk: [place]re Fall Risk Score: 20 (Low Risk) Precautions/Restrictions: n/a Family/Caregiver Present: spouse Overall Cognitive Status: WFL Overall Orientation Status: Oriented x4 Vision: Not Assessed Hearing: normal Social/Functional History Patient admitted from home. Lives With: Spouse Type of Home: single family home Home Layout: Two Level Home and Able to Live on Main Level Home Access: Level Entry Bathroom Shower/Tub: Toilet: Standard Home Equipment: none Homemaking Responsibilities: Independent Receives Help From: None Active Community Director: Prior Level of Function Prior Level of ADL Function: Independent Prior Level of Mobility: Independent; Device: None Prior Level of Transfers: Independent Objective Lower Extremity Assessment AROM: WFL PROM: WFL Strength: 5/5 Sensation: WFL Balance: Balance During Session: Posture: good Sitting - Static: Independent Sitting - Dynamic: Independent Standing - Static: Independent Standing - Dynamic: Independent Bed Mobility: Supine to sit: Independent Sit to supine: Independent Transfers Sit to stand: Independent Stand to sit: Independent Ambulation Ambulation 1 Assistive device(s) used: None Assist level: Independent Distance (ft): 350 Quality of gait: No gait deviations, No LOB Patient able to ambulate with minimal fatigue, and no SOB. Upper Extremity: WFL Outcome Measures AM-PAC How much HELP from another person do you currently need Turning from your back to your side while in a flat bed without using bedrails?: None Moving from lying on your back to sitting on the side of a flat bed without using bedrails?: None Moving to and from a bed to a chair (including a wheelchair)?: None Standing up from a chair using your arms (wheelchair or bedside chair)?: None Walking in a hospital room?: None Stair climbing assessed?: No AM-PAC Inpatient Mobility Raw Score (No Stairs) : 20 JH-HLM -HLM Score: Walked 250 ft or more (i.e. several laps on unit) Plan No skilled acute PT indicated at this time. Please reconsult should changes occur. Safety/Education Safety Safety Devices in place: call light within reach and left in bed Restraints: No Education Education Given To: patient Education Provided: PT Role, PT Goals, Plan of Care, and Discharge Recommendations Education Method: Verbal Barriers to Learning: None Education Outcome: Verbalized Understanding Goals Patient Stated Goal: Pt wants to go home. Therapy Time Individual Co-Treatment Co-Evaluation Time In 1340 Time Out 1351 Minutes 11 Timed Code Treatment Minutes: (anni blue) Skylar [place] Patient's Physical Therapy Plan of Care supervision is transferred to a [facility] Services Physical Therapist. Goals and/or treatment plan was established in collaboration with patient/family/other representatives. [facility] 03-05-2025 Note Formatting of this n ote is different from the original. Patient has PCP follow up scheduled. What's Next What's Next Follow up with Dr Asher Rahman Mar Follow up from hospital stay at 08:[address] [place] [address] T [facility] 03-05-2025 Note Formatting of this n ote is different from the original. Patient has PCP follow up scheduled. What's Next What's Next Follow up with Dr Asher Rahman Mar Follow up from hospital stay at 08:[address] [place] [address] T [facility] 03-05-2025 Note Formatting of this n ote might be different from the original. Care Management Progress Note Reviewed chart. From home. Works at [employer]. Neuro critical following. IVF. MRI brain ordered. Echo ordered. PT/OT ordered. Consult neurology. Await treatment plan and clinical progress. manager unit will continue to follow for transitional care needs and discharge planning. Will follow. Length of Stay (Days): 1 GMLOS: No GMLOS Documented [facility] 03-05-2025 Note Formatting of this n ote might be different from the original. Care Management Progress Note Reviewed chart. From home. Works at [employer]. Neuro critical following. IVF. MRI brain ordered. Echo ordered. PT/OT ordered. Consult neurology. Await treatment plan and clinical progress. manager unit will continue to follow for transitional care needs and discharge planning. Will follow. Length of Stay (Days): 1 GMLOS: No GMLOS Documented [facility] 03-05-2025 Note Care Management Prog ress Note Reviewed chart. From home. Works at [employer]. Neuro critical following. IVF. MRI brain ordered. Echo ordered. PT/OT ordered. Consult neurology. Await treatment plan and clinical progress. manager unit will continue to follow for transitional care needs and discharge planning. Will follow. Length of Stay (Days): 1 GMLOS: No GMLOS Documented [facility] 03-05-2025 Note PROGRESS NOTE: RILEY Gaspar SERVICE Patient Name:Bright Keen Patient : 1970 Chief complaint: L sided weakness Hospital Summary: 54M no significant PMH presented to OSH 03/04 with acute onset of L sided weakness. NIHSS 0. CT, CTA head/neck without acute process. Treated with TNK 0723 and transferred to [facility]. MRI with small scattered punctate bi-hemispheric strokes. Interval History: Feeling well, no new complaints. Medications: Scheduled Meds: atorvastatin, 40 mg, Oral, Daily mupirocin, 1 Application, Nasal, BID PRN Meds: PRN medications: acetaminophen OR acetaminophen, bisacodyl, hydrALAZINE, labetalol, LORazepam, ondansetron ODT OR ondansetron, polyethylene glycol (PEG) 3350 Allergies: Patient has no known allergies. Review of Systems Constitutional: Negative for fatigue and unexpected weight change. HENT: Negative for trouble swallowing. Eyes: Negative for visual disturbance. Respiratory: Negative for cough and shortness of breath. Cardiovascular: Negative for chest pain and palpitations. Gastrointestinal: Negative for diarrhea and nausea. Genitourinary: Negative for dysuria. Musculoskeletal: Negative for back pain and gait problem. Neurological: Negative for dizziness, tremors, seizures, syncope, facial asymmetry, speech difficulty, weakness, light-headedness, numbness and headaches. Psychiatric/Behavioral: Negative for confusion. The patient is not nervous/anxious. Physical Examination: Patient Vitals for the past 8 hrs: BP Temp Temp src Pulse Resp SpO2 Weight 03/05/25 0700 (!) 145/104 -- -- 83 16 97 % -- 03/05/25 0600 135/89 -- -- 71 13 96 % -- 03/05/25 0500 119/87 -- -- 67 14 95 % -- 03/05/25 0400 132/85 36.6 ?C (97.9 ?F) Temporal 68 12 96 % -- 03/05/25 0300 110/72 -- -- 72 13 97 % -- 03/05/25 0200 110/75 -- -- 70 14 96 % -- 03/05/25 0100 118/78 -- -- 74 15 95 % -- 03/05/25 0000 133/86 36.7 ?C (98 ?F) Temporal 78 19 97 % 123 kg (271 lb 13.2 oz) I/O last 3 completed shifts: In: 1694 (13.7 mL/kg) [P.O.:940; I.V.:754 (6.1 mL/kg)] Out: 1475 (12 mL/kg) [Urine:1475 (0.3 mL/kg/hr)] Weight: 123.3 kg General Physical Examination: General: Awake HEENT:Normocephalic, atraumatic CV: S1+S2, RRR, no MRG. Pulm:CTA b/l, unlabored Abdomen: Soft NT/ND. BS + Skin: Intact without ulcers, breakdowns or discoloration Extremities: normal with no edema or cyanosis Orthopedic limitation; No Pulses: Intact peripherally Carotid auscultation :No bruits Neurological Examination: Higher Functions: Mental Status Exam: Level of Alertness:Awake Orientation: Normal to self, time, place Memory: Normal Fund of Knowledge: Normal Language: Normal Dysarthria not present Cranial Nerves: -II Visual acuity: normal -II Visual dillon: normal -III Pupils (~ 3 mm OD, 3 mm OU) equal, round, reactive to light -III-IV- Extraocular Movements: intact -Nystagmus not present -Saccades and pursuits normal -V Facial sensation: intact Corneal's Intact bilateral -VII Facial strength: intact -VIII Hearing: intact -IX-X- Gag reflex present -X Palate:intact -XI Shoulder shrug: intact -XII Tongue movement: normal Motor Examination: Tone after evaluation of 4 limbs, the following findings applied: Normal -Bulk: normal -Muscle Stretchafter evaluation of all limbs, and axial musculature the following findings applied: Drift: absent, very minimal weakness against resistance to LUE normal -Reflexes: after evaluation of 4 limbs, the following findings applied ; normal all limbs -Plantar responce: Flexor bilaterally Sensory Intact to light touch, pain / temperature, proprioception, Coordination: Arms Normal finger to nose Legs Intact heel knee rothman testing Tremors not present Gait normal NIH Stroke Score: 0 ANCILLARY Lipids: Recent Labs 03/05/25 0013 CHOL 177 TRIG 44 HDL 35* Cardiac testing: EKG: Sinus rhythm Normal [place] No ST or T wave changes Radiology/imaging personal review: CT Head OSH 03/04/25: Reported no acute process CTA head/neck OSH 03/04/25: Reviewed in PACS, minimal R ICA atherosclerosis <50% ASSESSMENT / PLAN/RECOMMENDATIONS: L sided weakness s/p TNK for ischemic stroke with bi-hemispheric scattered ischemic strokes - Etiology: Embolic stroke of unclear etiology, high concern for cardio-embolic event given bi-hemispheric strokes - OK for normotension - ASA 81, Plavix 75 for 21 days followed by ASA 81 - Atorvastatin 40 - TTE pending, ?need for KATY. If work-up negative will need to follow up with OP cryptogenic stroke clinic for OP event monitor - Follow up with OP neurology Mild HTN - Goals as above - Suggest BP diary at home HLD - LDL 133, goal <70 Elevated troponin - 68-->116 - Trend - TTE pending Obesity - [place] on diet/lifestyle changes Recent SOB - Work-up per primary team OK to transfer to floor. Further recs after review of echo. 30 minutes (more content not included)... [facility] 03-04-2025 Hospital Discharg e instructions Shana Oliva RN - 03/04/2025 11:18 AM EDT Refer to the Understanding Stroke Booklet given to you, written material provided to patient/family, addressing all signs & symptoms of a stroke, which are: sudden numbness or weakness of the face, arm or leg, especially on one side of the body sudden confusion sudden difficulty speaking or understanding sudden trouble seeing in one or both eyes sudden trouble walking,dizziness, loss of balance or coordination sudden severe headache with no known cause syncope or temporary loss of consciousness seizure Explained the need to call EMS ([phone]) immediately if signs & symptoms occur. Discussed medications that the patient is taking, will review medications again prior to discharge, risk factors, and the need for follow-up with a physician/WASTEWATER PROJECT MANAGER/PA after discharge. Shana Oliva RN on 03/04/25 at 11:18 AM Discussed the patient s personal risk factors for Stroke /TIA with patient/family, and ways to reduce the risk for a recurrent stroke. Patient's personal risk factors which were identified are: [] High blood pressure [] High cholesterol [] Atrial fibrillation [] Diabetes [] Smoking/e-cigarettes/vaping [] Smokeless tobacco [x] Overweight [x] Lack of Exercise [] Sleep apnea [] Prior heart disease or heart attack [] Excessive alcohol use [] Marijuana/cannabis use [] Illicit drug use [] Personal history of previous TIA or stroke [] Family history of stroke or heart disease [] Carotid stenosis [] Heart failure [] Patent Foramen Ovale [] Migraine [] Hormone replacement therapy [] Current (up to six weeks post ) [] Depression [] Sickle Cell [] Renal insufficiency - chronic [] None Refer to Understanding Stroke Booklet. Advised patient that risk for stroke/TIA can be reduced by modifying/controlling risk factors. Patient advised to take medications as prescribed, which will be detailed in the discharge instructions, and to not stop taking them without consulting a physician. In addition, pt. advised to maintain a healthy diet, exercise regularly and to not smoke. Shana Oliva RN on 03/04/25 at 11:18 AM documented in this encounter [facility] 03-04-2025 History and physical note Images from the original note were not included. Internal Medicine: MICU Initial History and Physical Name: Bright Keen : 1970(54 y.o.) Date: 03/04/25 Attending: Dr. Wellington Subjective: Chief Complaint: Stroke like symptoms. HPI: Bright Keen is a 54 yo male with a PMHx of reported hypertension (w/ no official diagnosis) who is admitted to the ICU from OSH for stroke-like symptoms including left upper and lower extremity weakness. Patient developed sudden onset left upper and left lower extremity weakness at approximately 5:50 am today morning, last known well at 5:30am. He developed mild slurring and slowing of speech, drooping of left side of face, left arm drift, and left sides hemiparesis. He was taken to the ED and was rated at a NIHSS of 5 and given TNK at 0723. CTA reported negative, CT wo contrast done at OSH unable to be viewed. Patient states his symptoms dramatically improved after administration of TNK. Patient was then transferred to [facility]. On arrival, NIHSS 0. Patient also states he has had urinary retention and problems with urinary flow since ~6 weeks ago. Reports one month of SOB with exertion. Patient is not on any medications and does not have allergies. He consumes no alcohol, tobacco, or recreational drugs. 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 He does not regularly exercise. No past medical history on file. No past surgical history on file. No family history on file. Social History Socioeconomic History Marital status: Spouse name: Not on file Number of children: Not on file Years of education: Not on file Highest education level: Not on file Occupational History Not on file Tobacco Use Smoking status: Not on file Smokeless tobacco: Not on file Substance and Sexual Activity Alcohol use: Not on file Drug use: Not on file Sexual activity: Not on file Other Topics Concern Not on file Social History Narrative Not on file Social Drivers of Health Financial Resource Strain: Not on file Food Insecurity: Not on file Transportation Needs: Not on file Physical Activity: Not on file Stress: Not on file Social Connections: Not on file Intimate Partner Violence: Not on file Housing Stability: Not on file No Known Allergies Prior to Admission medications Not on File Objective: Oxygen Delivery: VITALS: BP 144/87 Pulse 87 Temp 37.5 C (99.5 F) (Oral) Resp 22 SpO2 97% CURRENT PULSE OXIMETRY: SpO2: 97 % Review of Systems Constitutional: Negative for chills and fever. Cardiovascular: Negative for chest pain. Gastrointestinal: Negative for abdominal pain, nausea and vomiting. Neurological: Negative for syncope. Psychiatric/Behavioral: Negative for agitation and confusion. Constitutional: General Appearance []WDWN [x]Obese []Cachectic []Thin []Ill Eyes: Inspection of Pupils/Irises Pupils round and react: [x]Yes []No Sclera: []Icteric [x]Non-Icteric Inspection of Conjunctiva/Lids Conjunctiva: []Injected [x]Non-Injected Lids: [x]Intact []Lesion Present ENT/Mouth: External Inspection of ears/nose [x] Normal [] Scar/Lesion/Mass Inspection of teeth/lips/gums Dentition: []Ione Teeth []Dentures Lips/Gums: []Intact []Lesion Present Mucosa: [][place] [x]Moist []Dry Neck: External Appearance Overall Appearance: [x]Normal []Lesion/Mass/Crepitus Present Trachea midline: [x]Yes []No Thyroid []Normal []Enlarged []Tender []Mass []Absent Respiratory: Respiratory effort []Labored [x]Non-Labored [] Mechanically-Ventilated Auscultation [x]Clear []Crackles []Wheezes []Rhonchi Cardiovascular: Auscultation: Holosystolic flow murmur heard over right 2nd, sternocostal border. JVP 10 Rate: [x]Regular []Irregular []Tachycardia []Bradycardia Rhythm: [x]Regular []Irregular Murmur: [x]Present []Absent Extremities Peripheral Edema: []Present []Absent Varicosities: []Present []Absent Gastrointestinal: Abdomen Palpation: [x]Soft []Firm []Tender [x]Non-Tender []Distended [x]Non-distended Mass: []Present []Absent Bowel Sounds: [x]Present []Absent Hernia: []Present [x]Absent Liver/Spleen: []Hepatosplenomegaly []Organomegaly Absent Musculoskeletal: Inspection of Digits and Nails Cyanosis: []Present [x]Absent Clubbing: []Present [x]Absent Ischemia: []Present [x]Absent Infection: []Present []Absent Extremities HENDERSON Equally: Except ([]RUE []RLE []LUE []LLE) Strength/Tone: Intact and Normal ([x]RUE [x]RLE []LUE []LLE) -Strength 4/5 on left lower extremity Skin: Inspection [x]Normal []Rash []Lesion []Ulcer Palpation [x]Warm []Cool [x]Dry []Clammy []Nodules []Induration []Skin-tightening Cap-Refill: [x] <3 sec [] >3 seconds (delayed) Neurologic: GCS EYE: 4 - Opens spontaneously GCS MOTOR: 6 - Obeys commands for movement GCS VERBAL: 5 - Oriented to person, place, time Total GCS: 15 [] Sensation grossly intact NIH Stroke Scale: 0 as of 11:25 am 03/04/2025 Psych: Mental Status Alert: [x]Yes [] No Oriented: []x0 []X1 []X2 [x]x3 Mood/Affect [x]Normal []Flat []Agitated []Depressed []Anxious []Calm []Sedated []NAD [facility] Labs within last 24 hours- BMP: Recent Labs 03/04/25 1100 NA 138 K 4.1 CL 110* CO2 23 BUN 15 CREATININE 0.86 CALCIUM 9.0 LFTs: Recent Labs 03/04/25 1100 03/04/25 1209 AST 30 -- ALT 30 -- PROT 6.8 -- ALBUMIN 4.0 -- BILITOT 1.4* -- BILIRUBINU -- Negative ALKPHOS 45 -- Glucose: Recent Labs 03/04/25 1100 GLUCOSE 94 Procal: No results for input(s): PROCAL in the last 72 hours. CBC: Recent Labs 03/04/25 1100 WBC 8.0 HGB 14.0 HCT 41.9 PLT 225 MCV 85.9 RDW 12.9 ABGs: No results for input(s): PHART, RGE8KEV, PO2ART, ANX1ZXF, SO2ART, F2JWDXEV in the last 72 hours. Lactic Acid: No results for input(s): LACTATE in the last 72 hours. INR: Recent Labs 03/04/25 1100 INR 1.0 Cardiac Injury Profile: No results for input(s): CKTOTAL, CKMB, TROPONINI in the last 72 hours. Labs in Last 3 months: Lab Results Component Value Date INR 1.0 03/04/2025 Microbiology- Urine Cx: No results found for: URINECX Blood Cx: No results found for: BLOODCX Sputum Cx: No results found for: RESPCULT Gram Stain: No results found for: LABGRAM PNA PCR: No results found for: HUMANMETAPNE COVID19: No results found for: COVID19 Legionella Ag: No results found for: LEGIONELLAPN Strep Ag: No results for input(s): STREPPNEUMO in the last 72 hours. Imaging- pending Assessment and Plan: Principal Problem: Stroke-like symptoms Assessment: Ischemic stroke s/p TNK Hypertension Urinary retention Elevated troponin Plan: Admit to MICU T2 Post-TNK protocol in place Neurocritical care following, appreciate recommendations Goal SBP <180 mmHg, DBP <105 mmHg, MAP >65 mmHg PRN labetalol for SBP > 180 or DBP > 105, hydralazine second line. No antiplatelets/antiothrombotics in first 24 hours after tPA MRI brain without contrast pending CTA at OSH negative per patient. TTE ordered Lipid panel pending, daily labs Trend high sensitivity troponins. Continuous telemetry Fall precautions Urinalysis with urine culture, bladder scan PT/OT consulted Adult regular diet - Neurochecks q15 minutes x 1 hour, followed by q30 minutes x 6 hours and then q1h x 24 hours GI Prophylaxis: Not indicated DVT Prophylaxis: [facility] BMI Classification: There is no height or weight on file to calculate BMI. Disposition: Remain in ICU Status Critical Care Time: Total critical care time caring for this patient with life threatening, unstable organ failure, including direct patient contact, management of life support systems, review of data including imaging and labs, discussions with other team members and physicians, excluding procedures. Cosigned by Jadiel Wellington DO at 03/04/2025 5:05 PM EDT Associated attestation - Jadiel Wellington DO - 03/04/2025 5:05 PM EDT I have personally performed a [id number] diagnostic evaluation on this patient on date of service 03/04/25. History, labs, imaging studies, and electronic medical record have been reviewed by me. This note documented by the [x]mixing house operator []DEJA reflects my history, exam, and medical decision making. I have reviewed and agree with the care plan. Changes were made in the orders as necessary. ROS documentation was reviewed and negative unless otherwise stated in HPI. Additional pertinent interval history, ROS, and physical exam findings: Patient arrived from [facility] s/p stroke with initial L arm/leg weakness, now resolved after tnk. No ongoing complaints, will continue neurochecks and post TNK care in T2 Assessment: CVA HTN Plan: Post TNK care (Given 0720 am 43) CVA Core measures Monitor in ICU PT/OT/POLICE RESERVES COMMANDER Total critical care time for this patient with life-threatening unstable organ failure, including direct patient contact, management of life support systems, review of data including imaging and labs, and discussions with other team members and physicians at least 35 so far today, excluding procedures. [facility] 03-04-2025 Note Attestation signed by Jadiel Wellington DO at 03/04/2025 5:05 PM I have personally performed a [id number] diagnostic evaluation on this patient on date of service 03/04/25. History, labs, imaging studies, and electronic medical record have been reviewed by me. This note documented by the [x]mixing house operator []DEJA reflects my history, exam, and medical decision making. I have reviewed and agree with the care plan. Changes were made in the orders as necessary. ROS documentation was reviewed and negative unless otherwise stated in HPI. Additional pertinent interval history, ROS, and physical exam findings: Patient arrived from [facility] s/p stroke with initial L arm/leg weakness, now resolved after tnk. No ongoing complaints, will continue neurochecks and post TNK care in T2 Assessment: CVA HTN Plan: Post TNK care (Given 0720 am 43) CVA Core measures Monitor in ICU PT/OT/POLICE RESERVES COMMANDER Total critical care time for this patient with life-threatening unstable organ failure, including direct patient contact, management of life support systems, review of data including imaging and labs, and discussions with other team members and physicians at least 35 so far today, excluding procedures. Internal Medicine: MICU Initial History and Physical Name: Bright Keen : 1970(54 y.o.) Date: 03/04/25 Attending: Dr. Wellington Subjective: Chief Complaint: Stroke like symptoms. HPI: Bright Keen is a 54 yo male with a PMHx of reported hypertension (w/ no official diagnosis) who is admitted to the ICU from OSH for stroke-like symptoms including left upper and lower extremity weakness. Patient developed sudden onset left upper and left lower extremity weakness at approximately 5:50 am today morning, last known well at 5:30am. He developed mild slurring and slowing of speech, drooping of left side of face, left arm drift, and left sides hemiparesis. He was taken to the ED and was rated at a NIHSS of 5 and given TNK at 0723. CTA reported negative, CT wo contrast done at OSH unable to be viewed. Patient states his symptoms dramatically improved after administration of TNK. Patient was then transferred to [facility]. On arrival, NIHSS 0. Patient also states he has had urinary retention and problems with urinary flow since ~6 weeks ago. Reports one month of SOB with exertion. Patient is not on any medications and does not have allergies. He consumes no alcohol, tobacco, or recreational drugs. 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 He does not regularly exercise. No past medical history on file. No past surgical history on file. No family history on file. Social History Socioeconomic History Marital status: Spouse name: Not on file Number of children: Not on file Years of education: Not on file Highest education level: Not on file Occupational History Not on file Tobacco Use Smoking status: Not on file Smokeless tobacco: Not on file Substance and Sexual Activity Alcohol use: Not on file Drug use: Not on file Sexual activity: Not on file Other Topics Concern Not on file Social History Narrative Not on file Social Drivers of Health Financial Resource Strain: Not on file Food Insecurity: Not on file Transportation Needs: Not on file Physical Activity: Not on file Stress: Not on file Social Connections: Not on file Intimate Partner Violence: Not on file Housing Stability: Not on file No Known Allergies Prior to Admission medications Not on File Objective: Oxygen Delivery: VITALS: BP 144/87 Pulse 87 Temp 37.5 ?C (99.5 ?F) (Oral) Resp 22 SpO2 97% CURRENT PULSE OXIMETRY: SpO2: 97 % Review of Systems Constitutional: Negative for chills and fever. Cardiovascular: Negative for chest pain. Gastrointestinal: Negative for abdominal pain, nausea and vomiting. Neurological: Negative for syncope. Psychiatric/Behavioral: Negative for agitation and confusion. Constitutional: General Appearance []WDWN [x]Obese []Cachectic []Thin []Ill Eyes: Inspection of Pupils/Irises Pupils round and react: [x]Yes []No Sclera: []Icteric [x]Non-Icteric Inspection of Conjunctiva/Lids Conjunctiva: []Injected [x]Non-Injected Lids: [x]Intact []Lesion Present ENT/Mouth: External Inspection of ears/nose [x] Normal [] Scar/Lesion/Mass Inspection of teeth/lips/gums Dentition: []Ione Teeth []Dentures Lips/Gums: []Intact []Lesion Present Mucosa: [][place] [x]Moist []Dry Neck: External Appearance Overall Appearance: [x]Normal []Lesion/Mass/Crepitus Present Trachea midline: [x]Yes []No Thyroid []Normal []Enlarged []Tender []Mass []Absent Respiratory: Respiratory effort []Labored [x]Non-Labored [] Mechanically- (more content not included)... [facility] 03-04-2025 History and physical note Images from the original note were not included. Internal Medicine: MICU Initial History and Physical Name: Bright Osmani : 1970(54 y.o.) Date: 03/04/25 Attending: Dr. Wellington Subjective: Chief Complaint: Stroke like symptoms. HPI: Bright Keen is a 54 yo male with a PMHx of reported hypertension (w/ no official diagnosis) who is admitted to the ICU from OSH for stroke-like symptoms including left upper and lower extremity weakness. Patient developed sudden onset left upper and left lower extremity weakness at approximately 5:50 am today morning, last known well at 5:30am. He developed mild slurring and slowing of speech, drooping of left side of face, left arm drift, and left sides hemiparesis. He was taken to the ED and was rated at a NIHSS of 5 and given TNK at 0723. CTA reported negative, CT wo contrast done at OSH unable to be viewed. Patient states his symptoms dramatically improved after administration of TNK. Patient was then transferred to [facility]. On arrival, NIHSS 0. Patient also states he has had urinary retention and problems with urinary flow since ~6 weeks ago. Reports one month of SOB with exertion. Patient is not on any medications and does not have allergies. He consumes no alcohol, tobacco, or recreational drugs. 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 He does not regularly exercise. No past medical history on file. No past surgical history on file. No family history on file. Social History Socioeconomic History Marital status: Spouse name: Not on file Number of children: Not on file Years of education: Not on file Highest education level: Not on file Occupational History Not on file Tobacco Use Smoking status: Not on file Smokeless tobacco: Not on file Substance and Sexual Activity Alcohol use: Not on file Drug use: Not on file Sexual activity: Not on file Other Topics Concern Not on file Social History Narrative Not on file Social Drivers of Health Financial Resource Strain: Not on file Food Insecurity: Not on file Transportation Needs: Not on file Physical Activity: Not on file Stress: Not on file Social Connections: Not on file Intimate Partner Violence: Not on file Housing Stability: Not on file No Known Allergies Prior to Admission medications Not on File Objective: Oxygen Delivery: VITALS: BP 144/87 Pulse 87 Temp 37.5 C (99.5 F) (Oral) Resp 22 SpO2 97% CURRENT PULSE OXIMETRY: SpO2: 97 % Review of Systems Constitutional: Negative for chills and fever. Cardiovascular: Negative for chest pain. Gastrointestinal: Negative for abdominal pain, nausea and vomiting. Neurological: Negative for syncope. Psychiatric/Behavioral: Negative for agitation and confusion. Constitutional: General Appearance []WDWN [x]Obese []Cachectic []Thin []Ill Eyes: Inspection of Pupils/Irises Pupils round and react: [x]Yes []No Sclera: []Icteric [x]Non-Icteric Inspection of Conjunctiva/Lids Conjunctiva: []Injected [x]Non-Injected Lids: [x]Intact []Lesion Present ENT/Mouth: External Inspection of ears/nose [x] Normal [] Scar/Lesion/Mass Inspection of teeth/lips/gums Dentition: []Ione Teeth []Dentures Lips/Gums: []Intact []Lesion Present Mucosa: [][place] [x]Moist []Dry Neck: External Appearance Overall Appearance: [x]Normal []Lesion/Mass/Crepitus Present Trachea midline: [x]Yes []No Thyroid []Normal []Enlarged []Tender []Mass []Absent Respiratory: Respiratory effort []Labored [x]Non-Labored [] Mechanically-Ventilated Auscultation [x]Clear []Crackles []Wheezes []Rhonchi Cardiovascular: Auscultation: Holosystolic flow murmur heard over right 2nd, sternocostal border. JVP 10 Rate: [x]Regular []Irregular []Tachycardia []Bradycardia Rhythm: [x]Regular []Irregular Murmur: [x]Present []Absent Extremities Peripheral Edema: []Present []Absent Varicosities: []Present []Absent Gastrointestinal: Abdomen Palpation: [x]Soft []Firm []Tender [x]Non-Tender []Distended [x]Non-distended Mass: []Present []Absent Bowel Sounds: [x]Present []Absent Hernia: []Present [x]Absent Liver/Spleen: []Hepatosplenomegaly []Organomegaly Absent Musculoskeletal: Inspection of Digits and Nails Cyanosis: []Present [x]Absent Clubbing: []Present [x]Absent Ischemia: []Present [x]Absent Infection: []Present []Absent Extremities HENDERSON Equally: Except ([]RUE []RLE []LUE []LLE) Strength/Tone: Intact and Normal ([x]RUE [x]RLE []LUE []LLE) -Strength 4/5 on left lower extremity Skin: Inspection [x]Normal []Rash []Lesion []Ulcer Palpation [x]Warm []Cool [x]Dry []Clammy []Nodules []Induration []Skin-tightening Cap-Refill: [x] <3 sec [] >3 seconds (delayed) Neurologic: GCS EYE: 4 - Opens spontaneously GCS MOTOR: 6 - Obeys commands for movement GCS VERBAL: 5 - Oriented to person, place, time Total GCS: 15 [] Sensation grossly intact NIH Stroke Scale: 0 as of 11:25 am 03/04/2025 Psych: Mental Status Alert: [x]Yes [] No Oriented: []x0 []X1 []X2 [x]x3 Mood/Affect [x]Normal []Flat []Agitated []Depressed []Anxious []Calm []Sedated []NAD [facility] within last 24 hours- BMP: Recent Labs 03/04/25 1100 NA 138 K 4.1 CL 110* CO2 23 BUN 15 CREATININE 0.86 CALCIUM 9.0 LFTs: Recent Labs 03/04/25 1100 03/04/25 1209 AST 30 -- ALT 30 -- PROT 6.8 -- ALBUMIN 4.0 -- BILITOT 1.4* -- BILIRUBINU -- Negative ALKPHOS 45 -- Glucose: Recent Labs 03/04/25 1100 GLUCOSE 94 Procal: No results for input(s): PROCAL in the last 72 hours. CBC: Recent Labs 03/04/25 1100 WBC 8.0 HGB 14.0 HCT 41.9 PLT 225 MCV 85.9 RDW 12.9 ABGs: No results for input(s): PHART, ZVT0YEL, PO2ART, HZT0OTJ, SO2ART, C4OGYVVZ in the last 72 hours. Lactic Acid: No results for input(s): LACTATE in the last 72 hours. INR: Recent Labs 03/04/25 1100 INR 1.0 Cardiac Injury Profile: No results for input(s): CKTOTAL, CKMB, TROPONINI in the last 72 hours. Labs in Last 3 months: Lab Results Component Value Date INR 1.0 03/04/2025 Microbiology- Urine Cx: No results found for: URINECX Blood Cx: No results found for: BLOODCX Sputum Cx: No results found for: RESPCULT Gram Stain: No results found for: LABGRAM PNA PCR: No results found for: HUMANMETAPNE COVID19: No results found for: COVID19 Legionella Ag: No results found for: LEGIONELLAPN Strep Ag: No results for input(s): STREPPNEUMO in the last 72 hours. Imaging- pending Assessment and Plan: Principal Problem: Stroke-like symptoms Assessment: Ischemic stroke s/p TNK Hypertension Urinary retention Elevated troponin Plan: Admit to MICU T2 Post-TNK protocol in place Neurocritical care following, appreciate recommendations Goal SBP <180 mmHg, DBP <105 mmHg, MAP >65 mmHg PRN labetalol for SBP > 180 or DBP > 105, hydralazine second line. No antiplatelets/antiothrombotics in first 24 hours after tPA MRI brain without contrast pending CTA at OSH negative per patient. TTE ordered Lipid panel pending, daily labs Trend high sensitivity troponins. Continuous telemetry Fall precautions Urinalysis with urine culture, bladder scan PT/OT consulted Adult regular diet - Neurochecks q15 minutes x 1 hour, followed by q30 minutes x 6 hours and then q1h x 24 hours GI Prophylaxis: Not indicated DVT Prophylaxis: [facility] BMI Classification: There is no height or weight on file to calculate BMI. Disposition: Remain in ICU Status Critical Care Time: Total critical care time caring for this patient with life threatening, unstable organ failure, including direct patient contact, management of life support systems, review of data including imaging and labs, discussions with other team members and physicians, excluding procedures. Cosigned by Jadiel Wellington DO at 03/04/2025 5:05 PM EDT Associated attestation - Jadiel Wellington DO - 03/04/2025 5:05 PM EDT I have personally performed a [id number] diagnostic evaluation on this patient on date of service 03/04/25. History, labs, imaging studies, and electronic medical record have been reviewed by me. This note documented by the [x]mixing house operator []DEJA reflects my history, exam, and medical decision making. I have reviewed and agree with the care plan. Changes were made in the orders as necessary. ROS documentation was reviewed and negative unless otherwise stated in HPI. Additional pertinent interval history, ROS, and physical exam findings: Patient arrived from OSH s/p stroke with initial L arm/leg weakness, now resolved after tnk. 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 documented in this encounter [facility] 03-04-2025 Note Speech-Agency Sales Director ology Patient passed the Nursing Swallowing Screening. As per stroke policy, no formal dysphagia evaluation is required. Completed speech orders. [facility] 03-04-2025 Note Discharge Instructio ns Discharge Summary [address] [address] [id number] 03/04/2025 Patient: BRIGHT KEEN Sex: Male : 1970 Age: 54y Thank you for visiting [facility]. You have been evaluated today by Chad Ross D.O. for the following condition(s): Principal Diagnosis Nontraumatic cerebrovascular accident- ischemic infarct. Patient Signature Facility Bond Clerk Date/Time General Instructions with ExitWriter [address] [address] [id number] 03/04/2025 Patient: BRIGHT KEEN Sex: Male : 1970 Age: 54y Thank you for visiting [facility]. You have been evaluated today by Chad Ross D.O. for the following condition(s): 1 of 2 Discharge Instructions Principal Diagnosis Nontraumatic cerebrovascular accident- ischemic infarct. 2 of 2 [facility] 03-04-2025 Consult note Formatting of th is note is different from the original. CONSULT NOTE: NEUROCRITICAL CARE Patient Name: Bright Keen Patient : 1970 Date of Admission: 03/04/2025 HPI: This is a 54 y.o. year old R handed man with no significant PMH who presented to [facility] ER on 03/04 with a chief complaint of L sided weakness. Patient was a transfer from OSH after presenting with L sided weakness. Patient woke up this morning around 0540 and while he was getting ready around 0550 he developed weakness of the LUE, LLE and felt that his speech was slow, slurred and face felt droopy. On arrival to OSH ER NIHSS 5. CT, CTA reported negative. BP 150/100's. Treated with TNK and transferred to [facility]. On arrival to [facility] NIHSS 0. Recent urinary retention that resolves 1 week ago. Reports few months of increasing SOB during exertion. Not on any home medications. No past medical history on file. No past surgical history on file. No family history on file. No Known Allergies Prior to Admission medications Not on File Review of Systems Constitutional: Negative for diaphoresis and fatigue. HENT: Negative for trouble swallowing and voice change. Eyes: Negative for visual disturbance. Respiratory: Negative for cough and shortness of breath. Cardiovascular: Negative for chest pain and palpitations. Gastrointestinal: Negative for diarrhea and nausea. Genitourinary: Negative for dysuria. Musculoskeletal: Negative for back pain and gait problem. Skin: Negative for pallor. Neurological: Positive for weakness and numbness. Negative for dizziness, tremors, seizures, syncope, facial asymmetry, speech difficulty, light-headedness and headaches. Psychiatric/Behavioral: Negative for confusion and decreased concentration. Physical Examination: Patient Vitals for the past 8 hrs: BP Temp Temp src Pulse Resp SpO2 03/04/25 0951 (!) 160/99 37.5 C (99.5 F) Oral 85 18 97 % No intake/output data recorded. General Physical Examination: General: Awake HEENT:Normocephalic, atraumaticl CV: S1+S2, RRR, no MRG. Pulm:CTA b/l, unlabored Abdomen: Soft NT/ND. BS + Skin: Intact without ulcers, breakdowns or discoloration Extremities: normal with no edema or cyanosis Orthopedic limitation; No Pulses: Intact peripherally Carotid auscultation :No bruits Neurological Examination: Higher Functions: Mental Status Exam: Level of Alertness:Awake Orientation: Normal to self, time, place Memory: Normal Fund of Knowledge: Normal Language: Normal Dysarthria not present Cranial Nerves: -II Visual acuity: normal -II Visual dillon: normal -III Pupils (~ 3 mm OD, 3 mm OU) equal, round, reactive to light -III-IV- Extraocular Movements: intact -Nystagmus not present -Saccades and pursuits normal -V Facial sensation: intact Corneal's Intact bilateral -VII Facial strength: intact -VIII Hearing: intact -IX-X- Gag reflex present -X Palate:intact -XI Shoulder shrug: intact -XII Tongue movement: normal Funduscopic Exam: normal, no edema or exudates both eyes Motor Examination: Tone after evaluation of 4 limbs, the following findings applied: Normal -Bulk: normal -Muscle Stretchafter evaluation of all limbs, and axial musculature the following findings applied: Drift: absent, very minimal weakness against resistance to LUE normal -Reflexes: after evaluation of 4 limbs, the following findings applied ; normal all limbs -Plantar responce: Flexor bilaterally Sensory Intact to light touch, pain / temperature, proprioception, Coordination: Arms Normal finger to nose Legs Intact heel knee rothman testing Tremors not present Gait normal NIH Stroke Score: 0 Cardiac testing: N/A Radiology Personal review: CT Head, CTA head/neck reported normal, getting uploaded ASSESSMENT / PLAN / SUGGESTIONS : L sided weakness s/p TNK for ischemic stroke - Etiology: Ongoing, concern for small vessel ischemic disease etiology based on symptoms - Post TNK protocol - SBP goal <180 - Hold ASA, DVT until 24 hours post TNK - Atorvastatin 40 - MRI Brain without contrast (tomorrow) - TTE - A1C, lipids - PT/OT/ST HTN (untreated) - Goals as above Obesity - [place] on diet/lifestyle changes Recent SOB - Work-up per primary team Updated at bedside. I spent a total of 35 minutes of independent critical care time for this neurocritically ill patient who is at high risk for both clinical and neurological decline due to further brain injury, which can occur unpredictably and rapidly cause multi-organ dysfunction. In that time I reviewed the chart including MAR, labs, neuroimaging, other imaging studies and discussed my diagnostic impression and patient's plan of care with the consulting team and patient's family members/surrogate decision makers (in cases where the patient is incapacitated and unable to participate in their own care). An additional 5 minutes was spent discussing assessment/plan with Dr. Rodney. Cosigned by Deniz Rodney MD at 03/04/2025 2:44 PM EDT Associated attestation - Deniz Rodney MD - 03/04/2025 2:44 PM EDT NCC/Stroke Attestation I personally saw the patient and performed a substantive portion of the medical decision making. This included the creation and/or approval of the management plan for the number and complexity of problems addressed at this visit and the ongoing responsibility for that plan and its inherent risk. Interval history I agree with history as below Exam General: Well appearing and well developed. HEENT: Normocephalic and atraumatic. Cardiac: Regular rate and rhythm. No murmurs. Pulm: Clear to ausculation bilaterally. GI/: Nondistended, nontender. Ext: No edema. Skin: No rashes or lesions. Neuro: Aox4. Expressive and receptive language intact. PERRL. EOMI. Midline gaze. VFI. Face symmetric. V1-V3 sensation intact. Palate rise symmetrical. Shoulder shrug intact. Tongue midline. LUE 5/5 LLE 5/5 RUE 5/5 RLE 5/5 Sensation intact to light touch and pinprick No ataxia or dysmetria. No extinction or neglect. Gait deferred in acute setting. Assessment and Plan Bright Keen is a patient who had acute onset left hemiparesis s/p TNK with complete resolution in ICU for post TNK protocol monitoring. # ischemic stroke # left hemiparesis, resolved - BP <180/105 - Echo - A1C, LDL - MRI brain wo contrast - Hold DVT ppx, ASA, AC post TNK - PT/OT/POLICE RESERVES COMMANDER Deniz Rodney MD Neurocritical Care I spent a total of 40 minutes in my independent critical care time for this neurocritically ill patient who is at high risk for both clinical and neurological decline due to further brain injury, which can occur unpredictably and rapidly cause multi-organ dysfunction. In that time I reviewed the chart including MAR, labs, neuroimaging, other imaging studies and discussed my diagnostic impression and patient's plan of care with my DEJA/resident/fellow/student, the consulting team and patient's family members/surrogate decision makers (in cases where the patient is incapacitated and unable to participate in their own care). [facility] 03-04-2025 Consult note Formatting of th is note is different from the original. CONSULT NOTE: NEUROCRITICAL CARE Patient Name: Bright Keen Patient : 1970 Date of Admission: 03/04/2025 HPI: This is a 54 y.o. year old R handed man with no significant PMH who presented to [facility] ER on 03/04 with a chief complaint of L sided weakness. Patient was a transfer from OSH after presenting with L sided weakness. Patient woke up this morning around 0540 and while he was getting ready around 0550 he developed weakness of the LUE, LLE and felt that his speech was slow, slurred and face felt droopy. On arrival to OSH ER NIHSS 5. CT, CTA reported negative. BP 150/100's. Treated with TNK and transferred to [facility]. On arrival to [facility] NIHSS 0. Recent urinary retention that resolves 1 week ago. Reports few months of increasing SOB during exertion. Not on any home medications. No past medical history on file. No past surgical history on file. No family history on file. No Known Allergies Prior to Admission medications Not on File Review of Systems Constitutional: Negative for diaphoresis and fatigue. HENT: Negative for trouble swallowing and voice change. Eyes: Negative for visual disturbance. Respiratory: Negative for cough and shortness of breath. Cardiovascular: Negative for chest pain and palpitations. Gastrointestinal: Negative for diarrhea and nausea. Genitourinary: Negative for dysuria. Musculoskeletal: Negative for back pain and gait problem. Skin: Negative for pallor. Neurological: Positive for weakness and numbness. Negative for dizziness, tremors, seizures, syncope, facial asymmetry, speech difficulty, light-headedness and headaches. Psychiatric/Behavioral: Negative for confusion and decreased concentration. Physical Examination: Patient Vitals for the past 8 hrs: BP Temp Temp src Pulse Resp SpO2 03/04/25 0951 (!) 160/99 37.5 C (99.5 F) Oral 85 18 97 % No intake/output data recorded. General Physical Examination: General: Awake HEENT:Normocephalic, atraumaticl CV: S1+S2, RRR, no MRG. Pulm:CTA b/l, unlabored Abdomen: Soft NT/ND. BS + Skin: Intact without ulcers, breakdowns or discoloration Extremities: normal with no edema or cyanosis Orthopedic limitation; No Pulses: Intact peripherally Carotid auscultation :No bruits Neurological Examination: Higher Functions: Mental Status Exam: Level of Alertness:Awake Orientation: Normal to self, time, place Memory: Normal Fund of Knowledge: Normal Language: Normal Dysarthria not present Cranial Nerves: -II Visual acuity: normal -II Visual dillon: normal -III Pupils (~ 3 mm OD, 3 mm OU) equal, round, reactive to light -III-IV- Extraocular Movements: intact -Nystagmus not present -Saccades and pursuits normal -V Facial sensation: intact Corneal's Intact bilateral -VII Facial strength: intact -VIII Hearing: intact -IX-X- Gag reflex present -X Palate:intact -XI Shoulder shrug: intact -XII Tongue movement: normal Funduscopic Exam: normal, no edema or exudates both eyes Motor Examination: Tone after evaluation of 4 limbs, the following findings applied: Normal -Bulk: normal -Muscle Stretchafter evaluation of all limbs, and axial musculature the following findings applied: Drift: absent, very minimal weakness against resistance to LUE normal -Reflexes: after evaluation of 4 limbs, the following findings applied ; normal all limbs -Plantar responce: Flexor bilaterally Sensory Intact to light touch, pain / temperature, proprioception, Coordination: Arms Normal finger to nose Legs Intact heel knee rothman testing Tremors not present Gait normal NIH Stroke Score: 0 Cardiac testing: N/A Radiology Personal review: CT Head, CTA head/neck reported normal, getting uploaded ASSESSMENT / PLAN / SUGGESTIONS : L sided weakness s/p TNK for ischemic stroke - Etiology: Ongoing, concern for small vessel ischemic disease etiology based on symptoms - Post TNK protocol - SBP goal <180 - Hold ASA, DVT until 24 hours post TNK - Atorvastatin 40 - MRI Brain without contrast (tomorrow) - TTE - A1C, lipids - PT/OT/ST HTN (untreated) - Goals as above Obesity - [place] on diet/lifestyle changes Recent SOB - Work-up per primary team Updated at bedside. I spent a total of 35 minutes of independent critical care time for this neurocritically ill patient who is at high risk for both clinical and neurological decline due to further brain injury, which can occur unpredictably and rapidly cause multi-organ dysfunction. In that time I reviewed the chart including MAR, labs, neuroimaging, other imaging studies and discussed my diagnostic impression and patient's plan of care with the consulting team and patient's family members/surrogate decision makers (in cases where the patient is incapacitated and unable to participate in their own care). An additional 5 minutes was spent discussing assessment/plan with Dr. Rodney. Cosigned by Deniz Rodney MD at 03/04/2025 2:44 PM EDT Associated attestation - Deniz Rodney MD - 03/04/2025 2:44 PM EDT NCC/Stroke Attestation I personally saw the patient and performed a substantive portion of the medical decision making. This included the creation and/or approval of the management plan for the number and complexity of problems addressed at this visit and the ongoing responsibility for that plan and its inherent risk. Interval history I agree with history as below Exam General: Well appearing and well developed. HEENT: Normocephalic and atraumatic. Cardiac: Regular rate and rhythm. No murmurs. Pulm: Clear to ausculation bilaterally. GI/: Nondistended, nontender. Ext: No edema. Skin: No rashes or lesions. Neuro: Aox4. Expressive and receptive language intact. PERRL. EOMI. Midline gaze. VFI. Face symmetric. V1-V3 sensation intact. Palate rise symmetrical. Shoulder shrug intact. Tongue midline. LUE 5/5 LLE 5/5 RUE 5/5 RLE 5/5 Sensation intact to light touch and pinprick No ataxia or dysmetria. No extinction or neglect. Gait deferred in acute setting. Assessment and Plan Bright Keen is a patient who had acute onset left hemiparesis s/p TNK with complete resolution in ICU for post TNK protocol monitoring. # ischemic stroke # left hemiparesis, resolved - BP <180/105 - Echo - A1C, LDL - MRI brain wo contrast - Hold DVT ppx, ASA, AC post TNK - PT/OT/POLICE RESERVES COMMANDER Deniz Rodney MD Neurocritical Care I spent a total of 40 minutes in my independent critical care time for this neurocritically ill patient who is at high risk for both clinical and neurological decline due to further brain injury, which can occur unpredictably and rapidly cause multi-organ dysfunction. In that time I reviewed the chart including MAR, labs, neuroimaging, other imaging studies and discussed my diagnostic impression and patient's plan of care with my DEJA/resident/fellow/student, the consulting team and patient's family members/surrogate decision makers (in cases where the patient is incapacitated and unable to participate in their own care). documented in this encounter [facility] 03-04-2025 Emergency department Note Report given to Shana on T2. [facility] 03-04-2025 Emergency department Note Report given to Shana on T2. EMERGENCY DEPARTMENT ENCOUNTER Pt Name: Bright Keen Birthdate 1970 Date of evaluation: 03/04/2025 ED Provider: Rolo Veloz DO CHIEF COMPLAINT Chief Complaint Patient presents with Stroke Pt comes in by EMS from [facility] with stroke like symptoms, initial NIH was 5, pt received TNK. Upon arrival to ED NIH is 0. HISTORY OF PRESENT ILLNESS (Location/Symptom, Timing/Onset, Context/Setting, Quality, Duration, Modifying Factors, Severity) Note limiting factors. I wore appropriate PPE for the entirety of this encounter. HPI Bright Keen is a 54 y.o. with history of reported hypertension without any official diagnosis for medications who presents to the emergency department with chief complaint of strokelike symptoms. Patient presented to outside facility with sudden onset left upper and left lower extremity weakness at 06 100 this a.m. At that time patient was given an NIHSS of 5 and given TN K after discussion with her stroke. Patient was then transferred here for further evaluation management. Currently patient is asymptomatic. Patient reports rapid resolution of all deficits. Patient currently denies any new or associated BEAN, vision changes, CP, SOB, abd pain, nausea, vomiting, diarrhea, constipation, urinary complaints. Nursing Notes were reviewed. Limitations to history: none Outside historians: none REVIEW OF SYSTEMS Review of Systems Pertinent positives and negatives as per HPI. PAST MEDICAL HISTORY No past medical history on file. SURGICAL HISTORY No past surgical history on file. CURRENT MEDICATIONS Previous Medications No medications on file ALLERGIES Patient has no known allergies. FAMILY HISTORY No family history on file. SOCIAL HISTORY SCREENINGS [place] Coma Scale Best Eye Response: Spontaneous Best Verbal Response: Oriented Best Motor Response: Follows commands Eddie Coma Scale Score: 15 NIH Stroke Scale 1A. Level of Consciousness: Alert, Keenly Responsive 1B. Ask Month and Age: Both Questions Right 1C. Blink Eyes & Squeeze Hands: Performs Both Tasks 2. Best Gaze: Normal 3. Visual: No Visual Loss 4. Facial Palsy: Normal Symmetrical Movements 5A. Motor - Left Arm: No Drift 5B. Motor - Right Arm: No Drift 6A. Motor - Left Leg: No Drift 6B. Motor - Right Leg: No Drift 7. Limb Ataxia: Absent 8. Sensory Loss: Normal 9. Best Language: No Aphasia 10. Dysarthria: Normal 11. Extinction and Inattention: No Abnormality NIH Stroke Scale: 0 PHYSICAL EXAM ED Triage Vitals [03/04/25 0951] Temp Heart Rate Resp BP 37.5 C (99.5 F) 85 18 (!) 160/99 SpO2 Temp Source Heart Rate Source Patient Position 97 % Oral Monitor Sitting BP Location FiO2 (%) Left arm -- General: A&O x 3, well appearing, no acute distress Head: NC/AT Eyes: Atraumatic, EOMI, clear conjunctival, PERRLA Nose: Atraumatic, no skin changes Throat: Moist mucus membranes, uvula midline, oropharynx clear Neck: atraumatic, Supple, no lymphadenopathy, no stiffness or restricted ROM Heart: Normal rate and regular rhythm, no m/r/g Lungs: CTA bilaterally, no crackles or wheezes, no respiratory distress Abd: Soft, nontender, nondistended, no guarding Back: atraumatic, no step-off, No midline vertebral ttp, no CVA tenderness bilaterally Extremity: warm, no clubbing or edema, 2+ pulses bilateral radial pulse bilaterally, 2+ PT pulses bilaterally Neurologic: Non focal exam, moving all extremities spontaneously,5/5 bilateral UE and LE strength. CN II-XII intact. Nl [id number] bilaterally. Nl [id number]. NIHSS 0 Skin: warm, dry, no obvious rashes DIAGNOSTIC RESULTS Procedures/EKG: EKG was reviewed by myself. Physician EKG interpretation can be found below in MDM RADIOLOGY (Per Emergency Physician): As per below in MDM section Interpretation per the Radiologist below, if available at the time of this note: No orders to display ED BEDSIDE ULTRASOUND: Performed by ED Physician - none LABS: Labs Reviewed - No data to display All other labs were within normal range or not returned as of this dictation. EMERGENCY DEPARTMENT COURSE and DIFFERENTIAL DIAGNOSIS/MDM: Vitals: Vitals: 03/04/25 0951 BP: (!) 160/99 BP Location: Left arm Patient Position: Sitting Pulse: 85 Resp: 18 Temp: 37.5 C (99.5 F) TempSrc: Oral SpO2: 97% Diagnoses as of 03/04/25 0958 Stroke-like symptoms Medications sodium chloride 0.9 % infusion (has no administration in time range) acetaminophen (Tylenol) tablet 650 mg (has no administration in time range) Or acetaminophen (Tylenol) suppository 650 mg (has no administration in time range) polyethylene glycol (PEG) 3350 (Miralax) packet 17 g (has no administration in time range) bisacodyl (Dulcolax) suppository 10 mg (has no administration in time range) ondansetron ODT (Zofran-ODT) disintegrating tablet 4 mg (has no administration in time range) Or ondansetron (Zofran) injection 4 mg (has no administration in time range) mupirocin (Bactroban) 2 % ointment 1 Application (has no administration in time range) atorvastatin (Lipitor) tablet 40 mg (has no administration in time range) labetalol (Normodyne,Trandate) injection 10 mg (has no administration in time range) hydrALAZINE (Apresoline) injection 10 mg (has no administration in time range) Patient with hx of none presents to the ED with a chief complaint of stroke. On exam, vitals stable. Per above. Otherwise per above (Differential diagnosis) With consideration of age, sex/gender, risk factors, to evaluate patient for high risk causes of morbidity and mortality such as, but not limited to, cva vs other No acute indication for workup needed at this time. No need for repeat work up at this time We will also provide medical/symptomatic management with none. Diagnostic tests considered but not performed: na Independently reviewed external documents including outside facility notes. Per chart review, patient has been followed for or diagnosed with nihss 0 tnk given in the past. Patient's condition and/or care was impacted by these chronic conditions. Will consider these factors in evaluation and management for today's care. Discussed plan with patient who agrees with current plan. REVAL: End of visit medical decision making Patient was reassessed. Resting comfortably. No acute distress. Independently reviewed and interpreted the lab results which demonstrated the following: no obvious abnormalities Independently reviewed and interpreted CXR which demonstrated the following: nl cxr Independently reviewed and interpreted EKG which demonstrated the following: no acute ischemic changes Rhythm Strip: The radiation monitor was ordered secondary to the patient's history of stroke like symptoms and to monitor the patient for dysrhythmia. I performed an independent interpretation of the rhythm strip which showed no arrhythmia, no signs of ischemic changes, no ectopy. Independently reviewed the reports of other imaging which demonstrated the following: no obvious LVO. Response to medical management provided in the ED: Per chart review patient had an NIHSS of 5 with left-sided deficit. Upon my evaluation into the emergency department patient had complete resolution of symptoms. NIHSS 0. (Consults) Discussed care with: Discussed case with bi consultant, ICU team. They agree with current work up and management. They will evaluate and provide further recommendations, please refer to their note for detailed explanation. They agree to admit the patient for further workup and management. Discussed all results with patient and/or family members. They verbalize understanding. Offered admission for further management. Discussed risks, benefits and alternatives for further management in the hospital. Due to high risk of morbidity and mortality of the stated findings and results, patient will be admitted for further management and care. Patient is agreeable to the plan. Discussed patient information, presentation and workup with admitting team. Admitting team is agreeable to current workup and evaluation. They will admit the patient and provide further care. Pending results to be followed by primary admitting team. Patient will need icu level of care and not appropriate for lower acuity location of care due to risk of morbidity and mortality Patient's condition and/or care was impacted by stroke like symptoms Patient's condition and/or care was significantly impacted by social determinants of health including: none CRITICAL CARE TIME Total Critical Care time was 5 minutes, excluding separately reportable procedures. There was a high probability of clinically significant/life threatening deterioration in the patient's condition which required my urgent intervention. CONSULTS: IP CONSULT TO CASE MANAGEMENT IP CONSULT TO NEUROLOGY PROCEDURES: Unless otherwise noted below, none Procedures Patients symptoms are consistent with sepsis, severe sepsis, or septic shock (If yes use .sepsiscoremeasure): FINAL IMPRESSION 1. Stroke-like symptoms DISPOSITION Admit 03/04/2025 09:53:38 AM PATIENT REFERRED TO: No follow-up provider specified. DISCHARGE MEDICATIONS: New Prescriptions No medications on file (Comment: Please note this report has been produced using speech recognition software and may contain errors related to that system including errors in grammar, punctuation, and spelling, as well as words and phrases that may be inappropriate. If there are any questions or concerns please feel free to contact the dictating provider for clarification.) Rolo Veloz DO (electronically signed) Emergency Medicine Provider Rolo Veloz DO 03/05/251942 documented in this encounter [facility] 03-04-2025 Physician Emergency department Note EMERGENCY DEPARTMENT ENCOUNTER Pt Name: Bright Keen Birthdate 1970 Date of evaluation: 03/04/2025 ED Provider: Rolo Veloz DO CHIEF COMPLAINT Chief Complaint Patient presents with Stroke Pt comes in by EMS from [facility] with stroke like symptoms, initial NIH was 5, pt received TNK. Upon arrival to ED NIH is 0. HISTORY OF PRESENT ILLNESS (Location/Symptom, Timing/Onset, Context/Setting, Quality, Duration, Modifying Factors, Severity) Note limiting factors. I wore appropriate PPE for the entirety of this encounter. HPI Bright Keen is a 54 y.o. with history of reported hypertension without any official diagnosis for medications who presents to the emergency department with chief complaint of strokelike symptoms. Patient presented to outside facility with sudden onset left upper and left lower extremity weakness at 06 100 this a.m. At that time patient was given an NIHSS of 5 and given TN K after discussion with her stroke. Patient was then transferred here for further evaluation management. Currently patient is asymptomatic. Patient reports rapid resolution of all deficits. Patient currently denies any new or associated BEAN, vision changes, CP, SOB, abd pain, nausea, vomiting, diarrhea, constipation, urinary complaints. Nursing Notes were reviewed. Limitations to history: none Outside historians: none REVIEW OF SYSTEMS Review of Systems Pertinent positives and negatives as per HPI. PAST MEDICAL HISTORY No past medical history on file. SURGICAL HISTORY No past surgical history on file. CURRENT MEDICATIONS Previous Medications No medications on file ALLERGIES Patient has no known allergies. FAMILY HISTORY No family history on file. SOCIAL HISTORY SCREENINGS Eddie Coma Scale Best Eye Response: Spontaneous Best Verbal Response: Oriented Best Motor Response: Follows commands [place] Coma Scale Score: 15 NIH Stroke Scale 1A. Level of Consciousness: Alert, Keenly Responsive 1B. Ask Month and Age: Both Questions Right 1C. Blink Eyes & Squeeze Hands: Performs Both Tasks 2. Best Gaze: Normal 3. Visual: No Visual Loss 4. Facial Palsy: Normal Symmetrical Movements 5A. Motor - Left Arm: No Drift 5B. Motor - Right Arm: No Drift 6A. Motor - Left Leg: No Drift 6B. Motor - Right Leg: No Drift 7. Limb Ataxia: Absent 8. Sensory Loss: Normal 9. Best Language: No Aphasia 10. Dysarthria: Normal 11. Extinction and Inattention: No Abnormality NIH Stroke Scale: 0 PHYSICAL EXAM ED Triage Vitals [03/04/25 0951] Temp Heart Rate Resp BP 37.5 C (99.5 F) 85 18 (!) 160/99 SpO2 Temp Source Heart Rate Source Patient Position 97 % Oral Monitor Sitting BP Location FiO2 (%) Left arm -- General: A&O x 3, well appearing, no acute distress Head: NC/AT Eyes: Atraumatic, EOMI, clear conjunctival, PERRLA Nose: Atraumatic, no skin changes Throat: Moist mucus membranes, uvula midline, oropharynx clear Neck: atraumatic, Supple, no lymphadenopathy, no stiffness or restricted ROM Heart: Normal rate and regular rhythm, no m/r/g Lungs: CTA bilaterally, no crackles or wheezes, no respiratory distress Abd: Soft, nontender, nondistended, no guarding Back: atraumatic, no step-off, No midline vertebral ttp, no CVA tenderness bilaterally Extremity: warm, no clubbing or edema, 2+ pulses bilateral radial pulse bilaterally, 2+ PT pulses bilaterally Neurologic: Non focal exam, moving all extremities spontaneously,5/5 bilateral UE and LE strength. CN II-XII intact. Nl Pqubmx-ln-ylmd bilaterally. Nl monj-ba-lsii. NIHSS 0 Skin: warm, dry, no obvious rashes DIAGNOSTIC RESULTS Procedures/EKG: EKG was reviewed by myself. Physician EKG interpretation can be found below in MDM RADIOLOGY (Per Emergency Physician): As per below in MDM section Interpretation per the Radiologist below, if available at the time of this note: No orders to display ED BEDSIDE ULTRASOUND: Performed by ED Physician - none LABS: Labs Reviewed - No data to display All other labs were within normal range or not returned as of this dictation. EMERGENCY DEPARTMENT COURSE and DIFFERENTIAL DIAGNOSIS/MDM: Vitals: Vitals: 03/04/25 0951 BP: (!) 160/99 BP Location: Left arm Patient Position: Sitting Pulse: 85 Resp: 18 Temp: 37.5 C (99.5 F) TempSrc: Oral SpO2: 97% Diagnoses as of 03/04/25 0958 Stroke-like symptoms Medications sodium chloride 0.9 % infusion (has no administration in time range) acetaminophen (Tylenol) tablet 650 mg (has no administration in time range) Or acetaminophen (Tylenol) suppository 650 mg (has no administration in time range) polyethylene glycol (PEG) 3350 (Miralax) packet 17 g (has no administration in time range) bisacodyl (Dulcolax) suppository 10 mg (has no administration in time range) ondansetron ODT (Zofran-ODT) disintegrating tablet 4 mg (has no administration in time range) Or ondansetron (Zofran) injection 4 mg (has no administration in time range) mupirocin (Bactroban) 2 % ointment 1 Application (has no administration in time range) atorvastatin (Lipitor) tablet 40 mg (has no administration in time range) labetalol (Normodyne,Trandate) injection 10 mg (has no administration in time range) hydrALAZINE (Apresoline) injection 10 mg (has no administration in time range) Patient with hx of none presents to the ED with a chief complaint of stroke. On exam, vitals stable. Per above. Otherwise per above (Differential diagnosis) With consideration of age, sex/gender, risk factors, to evaluate patient for high risk causes of morbidity and mortality such as, but not limited to, cva vs other No acute indication for workup needed at this time. No need for repeat work up at this time We will also provide medical/symptomatic management with none. Diagnostic tests considered but not performed: na Independently reviewed external documents including outside facility notes. Per chart review, patient has been followed for or diagnosed with nihss 0 tnk given in the past. Patient's condition and/or care was impacted by these chronic conditions. Will consider these factors in evaluation and management for today's care. Discussed plan with patient who agrees with current plan. REVAL: End of visit medical decision making Patient was reassessed. Resting comfortably. No acute distress. Independently reviewed and interpreted the lab results which demonstrated the following: no obvious abnormalities Independently reviewed and interpreted CXR which demonstrated the following: nl cxr Independently reviewed and interpreted EKG which demonstrated the following: no acute ischemic changes Rhythm Strip: The radiation monitor was ordered secondary to the patient's history of stroke like symptoms and to monitor the patient for dysrhythmia. I performed an independent interpretation of the rhythm strip which showed no arrhythmia, no signs of ischemic changes, no ectopy. Independently reviewed the reports of other imaging which demonstrated the following: no obvious LVO. Response to medical management provided in the ED: Per chart review patient had an NIHSS of 5 with left-sided deficit. Upon my evaluation into the emergency department patient had complete resolution of symptoms. NIHSS 0. (Consults) Discussed care with: Discussed case with bi consultant, ICU team. They agree with current work up and management. They will evaluate and provide further recommendations, please refer to their note for detailed explanation. They agree to admit the patient for further workup and management. Discussed all results with patient and/or family members. They verbalize understanding. Offered admission for further management. Discussed risks, benefits and alternatives for further management in the hospital. Due to high risk of morbidity and mortality of the stated findings and results, patient will be admitted for further management and care. Patient is agreeable to the plan. Discussed patient information, presentation and workup with admitting team. Admitting team is agreeable to current workup and evaluation. They will admit the patient and provide further care. Pending results to be followed by primary admitting team. Patient will need icu level of care and not appropriate for lower acuity location of care due to risk of morbidity and mortality Patient's condition and/or care was impacted by stroke like symptoms Patient's condition and/or care was significantly impacted by social determinants of health including: none CRITICAL CARE TIME Total Critical Care time was 5 minutes, excluding separately reportable procedures. There was a high probability of clinically significant/life threatening deterioration in the patient's condition which required my urgent intervention. CONSULTS: IP CONSULT TO CASE MANAGEMENT IP CONSULT TO NEUROLOGY PROCEDURES: Unless otherwise noted below, none Procedures Patients symptoms are consistent with sepsis, severe sepsis, or septic shock (If yes use .sepsiscoremeasure): FINAL IMPRESSION 1. Stroke-like symptoms DISPOSITION Admit 03/04/2025 09:53:38 AM PATIENT REFERRED TO: No follow-up provider specified. DISCHARGE MEDICATIONS: New Prescriptions No medications on file (Comment: Please note this report has been produced using speech recognition software and may contain errors related to that system including errors in grammar, punctuation, and spelling, as well as words and phrases that may be inappropriate. If there are any questions or concerns please feel free to contact the dictating provider for clarification.) Rolo Veloz DO (electronically signed) Emergency Medicine Provider Rolo Veloz DO 03/05/251942 [facility] Phone: Evaluation note Diagnosis Stroke-like symptoms- Primary Stroke-like symptoms Stroke determined by clinical assessment ([facility]) Nonrheumatic aortic valve stenosis [facility] Diagnosis Transient cerebral ischemia, unspecified type- Primary [facility]* Diagnosis Transient cerebral ischemia, unspecified type- Primary [facility]* Diagnosis Stroke-like symptoms- Primary Severe aortic stenosis Aortic valve disorders Primary hypertension Unspecified essential hypertension Other hyperlipidemia [facility]* Diagnosis Transient cerebral ischemia, unspecified type [facility] Diagnosis Nonrheumatic aortic valve stenosis [facility] Diagnosis Nonrheumatic aortic valve stenosis Nonrheumatic aortic valve stenosis- Primary Nonrheumatic aortic valve stenosis [facility] Diagnosis Nonrheumatic aortic valve stenosis- Primary Nonrheumatic aortic valve stenosis [facility] Diagnosis Severe aortic stenosis- Primary Aortic valve disorders Chronic diastolic (congestive) heart failure (HCC) [facility] Diagnosis Aortic stenosis, severe- Primary Preoperative clearance Unspecified pre-operative examination Nonrheumatic aortic (valve) stenosis [facility] Diagnosis Severe aortic stenosis- Primary Aortic valve disorders Nonrheumatic aortic (valve) stenosis [facility] Diagnosis Aortic stenosis, severe- Primary Preoperative clearance Unspecified pre-operative examination Aortic stenosis, severe Nonrheumatic aortic (valve) stenosis Post-op pain Other acute postoperative pain [facility] Diagnosis Severe aortic stenosis- Primary Aortic valve disorders [facility] Diagnosis Severe aortic stenosis- Primary Aortic valve disorders Status post mechanical aortic valve replacement [facility] Diagnosis Severe aortic stenosis- Primary Aortic valve disorders Status post mechanical [facility] valve replacement [facility] Diagnosis Severe aortic stenosis- Primary Aortic valve disorders Status post mechanical aortic valve replacement documented in this encounter [facility]* Diagnosis Severe aortic stenosis- Primary Aortic valve disorders Status post mechanical aortic valve replacement documented in this encounter [facility]* Diagnosis Severe aortic stenosis- Primary Aortic valve disorders Status post mechanical aortic valve replacement Cryptogenic stroke (HCC)- Primary Primary hypertension Unspecified essential hypertension Other hyperlipidemia Status post mechanical aortic valve replacement Coronary artery disease involving [place] coronary artery of [place] heart without angina pectoris History of surgical closure of patent foramen ovale (PFO) Bicuspid aortic valve Congenital insufficiency of aortic valve Paroxysmal atrial fibrillation (HCC) Atrial fibrillation documented in this encounter [facility]* Diagnosis Severe aortic stenosis- Primary Aortic valve disorders S/P AVR (aortic valve replacement) Heart valve replaced by other means Cryptogenic stroke (HCC)- Primary Primary hypertension Unspecified essential hypertension Other hyperlipidemia Status post mechanical aortic valve replacement Coronary artery disease involving [place] coronary artery of [place] heart without angina pectoris History of surgical closure of patent foramen ovale (PFO) Bicuspid aortic valve Congenital insufficiency of aortic valve Paroxysmal atrial fibrillation (HCC) Atrial fibrillation documented in this encounter [facility]* Diagnosis Severe aortic stenosis- Primary Aortic valve disorders S/P AVR (aortic valve replacement) Heart valve replaced by other means Cryptogenic stroke (HCC)- Primary Primary hypertension Unspecified essential hypertension Other hyperlipidemia Status post mechanical aortic valve replacement Coronary artery disease involving [place] coronary artery of [place] heart without angina pectoris History of surgical closure of patent foramen ovale (PFO) Bicuspid aortic valve Congenital insufficiency of aortic valve Paroxysmal atrial fibrillation (HCC) Atrial fibrillation [facility] noteNo assessment information availableWMain [facility] Work Phone: Evaluation note* Diagnosis Severe aortic stenosis- Primary Aortic valve disorders S/P AVR (aortic valve replacement) Heart valve replaced by other means documented in this encounter [facility]* Diagnosis Cryptogenic stroke (HCC)- Primary Postoperative atrial fibrillation (HCC) Status post mechanical aortic valve replacement Primary hypertension Unspecified essential hypertension Other hyperlipidemia Coronary artery disease involving [place] coronary artery of [place] heart without angina pectoris History of surgical closure of patent foramen ovale (PFO) Bicuspid aortic valve Congenital insufficiency of aortic valve [facility] Diagnosis Severe aortic stenosis- Primary Aortic valve disorders S/P AVR (aortic valve replacement) Heart valve replaced by other means documented in this encounter [facility]* Diagnosis Onset Date Resolution Status Admit Date Bicuspid aortic valve acute Jul 2:36pm CAD (coronary atheroscleroti c disease) acute July 27 2:36pm Hypertension chronic July 27, 2025 2:36pm [facility] Work Phone: Reason for referral (narrative)No reason for referral information availableSelect [facility] Work Phone: Reason for visit Narrative* Cardiology (Routine) - Closed Specialty Diagnoses / Procedures Referred By Juan Antonio t Referred To Contact Cardiology Diagnoses Transient cerebral ischemia, unspecified type Procedures Cardiac event monitor (30 days) SC XTRNL ECG REC<48 HRS RECORDING SC XTRNL ECG REC<48 HRS SCANNING A/R SC XTRNL ECG REC<48 HRS RVW&INTERPJ PHYS/QHP SC XTRNL MOBILE CV TELEMETRY W/I&REPORT 30 DAYS SC XTRNL MOBILE CV TELEMETRY W/TECHNICAL SUPPORT Adia Ventura, EHS ENGINEER - [employer] [address] [facility] [address] [place] [address] Phone: tel: fax: Referral ID Status Reason Start Date Expiration Date Visits Re quested Visits Authorized [id number] Closed 03/10/2025 03/05/2026 1 1 [facility] N[facility] Auth/Cert (Routine) Specialty Diagnoses / Procedures Referred By Juan Antonio t Referred To Contact Diagnoses Nonrheumatic aortic valve stenosis Nonrheumatic aortic valve stenosis [I35.0] Procedures SC R & L HRT CATH WINJX HRT ART& L VENTR IMG Left and right heart cath / coronary angiography Shilpa Jackson MD [address] [facility] [address] [place] [address] Phone: tel: fax: Referral ID Status Reason Start Date Expiration Date Visits Re quested Visits Authorized [id number] 04/01/2025 1 1 [facility] [employer] for visit Narrative* Consultation (Routine) - Authorized Specialty Diagnoses / Procedures Referred By Juan Antonio t Referred To Contact Pharmacy Diagnoses Severe aortic stenosis Procedures SC OFFICE/OUTPATIENT NEW HIGH MDM 60 MINUTES Artemio, Patricia, DO [address] [place] [address] Phone: tel: fax: [facility]tico[facility] Management [facility] [address] [place] [address] Phone: tel: fax: Referral ID Status Reason Start Date Expiration Date Visits Requested Visits Authorized [id number] Authorized Specialty Services Required 04/15/2025 04/15/2027 1000 1000 [facility] for visit Narrative* Auth/Cert (Routine) Specialty Diagnoses / Procedures Referred By Contac t Referred To Contact Diagnoses Nonrheumatic aortic (valve) stenosis Procedures SC RPLCMT PROST AORTIC VALVE OPEN XCP HOMOGRF/STENT SC ECHO TRANSESOPHAG R-T 2D W/PRB IMG ACQUISJ I&R MECHANICAL AORTIC VALVE REPLACEMENT ECHOCARDIOGRAM, TRANSESOPHAGEAL Patricia Ulloa, DO [address] [facility] [address] [place] [address] Phone: tel: fax: Referral ID Status Reason Start Date Expiration Date Visits Re quested Visits Authorized [id number] 04/15/2025 1 1 [facility] Summary Purpose Family History No Family History Records Found Breast cancer Status:Active Comments:Mother. Skin Cancer Status:Active Comments:Father. Breast cancer Status:Active Comments:Mother. Skin Cancer Status:Active Comments:Father. Breast cancer Status:Active Comments:Mother. Skin Cancer Status:Active Comments:Father. Breast cancer Status:Active Comments:Mother. Skin Cancer Status:Active Comments:Father. Breast cancer Status:Active Comments:Mother. Skin Cancer Status:Active Comments:Father. Breast cancer Status:Active Comments:Mother. Skin Cancer Status:Active Comments:Father. Breast cancer Status:Active Comments:Mother. Skin Cancer Status:Active Comments:Father. Breast cancer Status:Active Comments:Mother. Skin Cancer Status:Active Comments:Father. Breast cancer Status:Active Comments:Mother. Skin Cancer Status:Active Comments:Father. Breast cancer Status:Active Comments:Mother. Skin Cancer Status:Active Comments:Father. Breast cancer Status:Active Comments:Mother. Skin Cancer Status:Active Comments:Father. Breast cancer Status:Active Comments:Mother. Skin Cancer Status:Active Comments:Father. Breast cancer Status:Active Comments:Mother. Skin Cancer Status:Active Comments:Father. Breast cancer Status:Active Comments:Mother. Skin Cancer Status:Active Comments:Father. Relationship Condition Age at Onset Recorded Date/T [place] mother Cardiac disease Unknown grandmother Cardiac disease Unknown grandfather Cardiac disease Unknown Breast cancer Status:Active Comments:Mother. Skin Cancer Status:Active Comments:Father. Breast cancer Status:Active Comments:Mother. Skin Cancer Status:Active Comments:Father. Advance Directives No Advanced Directives Records Found Date Activated Date Inactivated Comments 03/04/2025 9:57 AM 03/06/2025 4:32 PM Date Activated Date Inactivated Comments 03/04/2025 9:57 AM 03/06/2025 4:32 PM Date Activated Date Inactivated Comments 04/06/2025 8:46 AM 04/06/2025 5:15 PM Date Activated Date Inactivated Comments 03/04/2025 9:57 AM 03/06/2025 4:32 PM Date Activated Date Inactivated Comments 04/06/2025 8:46 AM 04/06/2025 5:15 PM Date Activated Date Inactivated Comments 03/04/2025 9:57 AM 03/06/2025 4:32 PM Date Activated Date Inactivated Comments 04/28/2025 5:41 AM 05/03/2025 4:33 PM Date Activated Date Inactivated Comments 04/06/2025 8:46 AM 04/06/2025 5:15 PM Date Activated Date Inactivated Comments 03/04/2025 9:57 AM 03/06/2025 4:32 PM Date Activated Date Inactivated Comments 04/28/2025 5:41 AM 05/03/2025 4:33 PM Date Activated Date Inactivated Comments 04/06/2025 8:46 AM 04/06/2025 5:15 PM Date Activated Date Inactivated Comments 03/04/2025 9:57 AM 03/06/2025 4:32 PM Advance Directive Response Recorded Date/ Time Advance Directives on File No June 11, 2025 2:06pm Living Will No June 11, 2025 2:06pm Do you have a Healthcare Power of Joint Cutter Machine? No June 11, 2025 2:06pm Chief Complaint and Reason for Visit Chief Complaint Admit Date S/P AVR June 11, 2025 1:49 pm Chief Complaint Admit Date S/P AVR June 11, 2025 1:49 pm S/P AVR June 28, 2025 2:15 pm Chief Complaint Admit Date S/P AVR June 11, 2025 1:49 pm S/P AVR June 28, 2025 2:15 pm CVA/AFIB ([facility]) July 27, 2025 2:36pm Reason for Visit Admit Date Bicuspid aortic valve July 27, 2025 2:36pm CAD (coronary atherosclerotic disease) A ugust 2024 2:36pm Hypertension July 27, 2025 2: 36pm Additional Source Comments (unrecognized sect ion and content) No Status Records FoundNo Status Records FoundNo Status Records FoundNo Status Records Found INFORMATION SOURCE (unrecogn ized section and content) DATE CREATED AUTHOR 06/26/[address] [facility] DATE CREATED AUTHOR AUTHOR'S ORGANIZ ATION 05/06/2025 [facility] DATE CREATED AUTHOR AUTHOR'S ORGANIZ ATION 07/06/2025 [facility] DATE CREATED AUTHOR AUTHOR'S ORGANIZ ATION 08/08/2025 [facility] Reason for Visit (unrecogniz ed section and content) Reason Comments Stroke Pt comes in by EMS dieudonne Bear with stroke like symptoms, initial NIH was 5, pt received TNK. Upon arrival to ED NIH is 0. Specialty Diagnoses / Procedures Referred By Juan Antonio bhakta Referred To Contact Diagnoses Stroke-like symptoms Acute Stroke Procedures . Jadiel Wellington DO [address] [address] Phone: tel: fax: [facility] Surgical Trauma Neuro Intensive Care Unit STN ICU T2 [address] [place] [address] Phone: tel: Referral ID Status Reason Start Date Expiration Date Visits Re quested Visits Authorized [id number] 1 Reason Onset Date Comments Hospital Follow-up 03/10/2025 Reason Comments New Patient Cardiac Valve Problem Heart valve clinic Specialty Diagnoses / Procedures Referred By Juan Antonio bhakta Referred To Contact Cardiology Diagnoses Nonrheumatic aortic valve stenosis Procedures SC OFFICE/OUTPATIENT NEW HIGH MDM 60 MINUTES Chad Holcomb MD [address] [place] [address] Phone: tel: fax: [facility] Cardiology [address] [address] Phone: tel: fax: Referral ID Status Reason Start Date Expiration Date V isits Requested Visits Authorized [id number] Closed Specialty Services Required 03/06/2025 03/06/2026 1 1 Reason Comments New Patient Reason Onset Date Comments Surgery Scheduling 04/16/2025 Reason Onset Date Comments Referral 04/16/2025 Reason Comments Follow-up Reason Onset Date Comments Insomnia 05/15/2025 Reason Onset Date Comments Hospital Follow-up 06/01/2025 90 day mRS Reason Onset Date Comments Hospital Follow-up 06/01/2025 90 day mRS=0 Reason Comments Atrial Fibrillation PAF Cardiac Valve Problem Mechanical AVR 5-2 07-26 Bicuspid Other PFO repair 04-28-25Cr yptogenic CVA Coronary Artery Disease Hyperlipidemia Hypertension Scheduled Active and Recently Administ ered Medications (unrecognized section and content) Medication Order 03/04/2025 03/05/2025 03/06/2025 aspirin chewable tablet 81 mg 81 mg, Oral, Daily, First dose on Sat03/05/25 at 1115 1256 (Given - Provider: Wilma Gaming RN) 0804 (Given - Provider: Saadia Sorensen, MARYA) atorvastatin (Lipitor) tablet 40 mg 40 mg, Oral, Daily, First dose on Sat03/04/25 at 1000, If NO ALLERGIES or INTOLERANCE TO STATINS REPORTED BY PATIENT OR DOCUMENTED HOLD IF NPO 1043 (Given - Provider: Shana Oliva RN) 0757 (Given - Provider: Shana Oliva, MARYA) 0804 (Given - Provider: Saadia Sorensen, RN) clopidogrel (Plavix) tablet 75 mg 75 mg, Oral, Daily, First dose on Sat03/05/25 at 1115 1256 (Given - Provider: Wilma Gaming RN) 0804 (Given - Provider: Saadia Sorensen, MARYA) enoxaparin (Lovenox) syringe 40 mg 40 mg, SubCUTAneous, Every 24 hours scheduled (Daily), First dose on Sat03/05/25 at 1115, Indication of Use: Prophylaxis-DVT/PE, Indications: Prophylaxis of Venous Thromboembolism 1256 (Given - Provider: Wilma Gaming, MARYA) 0804 (Given - Provider: Saadia Sorensen, MARYA) mupirocin (Bactroban) 2 % ointment 1 Application 1 Application, Nasal, 2 times daily, First dose on Marlys 03/04/25 at 1000, For 5 days, Indications: MRSA Nasal Decolonization 1043 (Given - Provider: Shana Oliva RN)2100 (Not Given - Provider: Shila Dong RN - Reason: Patient/family refused) 0900 (Not Given - Provider: Shana Oliva RN - Reason: Other)2100 (Not Given - Provider: Artemio López RN - Reason: Patient/family refused) 0900 (Not Given - Provider: Saadia Sorensen RN - Reason: Patient/family refused) Continuous Medication Order 03/04/2025 03/05/2025 03/06/2025 sodium chloride 0.9 % infusion (CANCELED) 75 mL/hr, IntraVENous, Continuous, Starting on Marlys 03/04/25 at 1000 1042 (New Bag - Provider: Shana Oliva, RN)2200 (Stopped - Provider: Shila Dong RN) PRN Medication Order 03/04/2025 03/05/2025 03/06/2025 acetaminophen (Tylenol) suppository 650 mg(Linked Group 1) 650 mg, Rectal, Every 6 hours PRN, fever, For temp greater than 100.4 F (38 C), Starting on Marlys 03/04/25 at 0955, Administer if oral route cannot be used. Maximum dose of acetaminophen is 4000 mg from all sources in 24 hours. acetaminophen (Tylenol) tablet 650 mg(Linked Group 1) 650 mg, Oral, Every 6 hours PRN, mild pain (1-3), fever, For temp greater than 100.4 F (38 C), Starting on Marlys 03/04/25 at 0955, Maximum dose of acetaminophen is 4000 mg from all sources in 24 hours. bisacodyl (Dulcolax) suppository 10 mg 10 mg, Rectal, Daily PRN, constipation, Starting on Marlys 03/04/25 at 0955, 2nd line for treatment of constipation - give scheduled (in addition to 1st line agent) if no bowel movement in past 48 hours hydrALAZINE (Apresoline) injection 10 mg 10 mg, IntraVENous, Every 1 hour PRN, high blood pressure, Starting on Marlys 03/04/25 at 0956, During or Post thrombolytic agent administration: For SBP GREATER than 180 or DBP GREATER than 105. Give over 2 minutes. Second line. labetalol (Normodyne,Trandate) injection 10 mg 10 mg, IntraVENous, Every 10 min PRN, high blood pressure, Starting on Marlys 03/04/25 at 0956, During or Post thrombolytic agent administration: For SBP GREATER than 180 or DBP GREATER than 105. Give over 1-2 minutes. If HR LESS than 65 use second option, hydralazine order. LORazepam (Ativan) injection 1 mg (COMPLETED) 1 mg, IntraVENous, Once PRN, anxiety, Starting on Marlys 03/04/25 at 1050, For 1 dose, Prior to MRI For IV doses dilute dose with 1ml NS. 1003 (Given - Provider: Shana Oliva RN - Comment: given in MRI) ondansetron (Zofran) injection 4 mg(Linked Group 2) 4 mg, IntraVENous, Every 6 hours PRN, nausea, vomiting, Starting on Marlys 03/04/25 at 0955, 1st Line. Give IV if patient is unable to take orally. If inadequate response within 60 minutes, proceed to next-line agent or contact provider if no further options ordered. ondansetron ODT (Zofran-ODT) disintegrating tablet 4 mg(Linked Group 2) 4 mg, Oral, Every 8 hours PRN, nausea, vomiting, Starting on Marlys 03/04/25 at 0955, 1st Line. If inadequate response within 60 minutes, proceed to next-line agent or contact provider if no further options ordered. Patient should allow tablet to dissolve on tongue. Do not remove from blister pack until just before administering. polyethylene glycol (PEG) 3350 (Miralax) packet 17 g 17 g, Oral, Daily PRN, constipation, Starting on Marlys 03/04/25 at 0955, 1st line for treatment of constipation - give scheduled if no bowel movement in past 24 hours. Linked Groups Order Group 1: acetaminophen (Tylenol) tablet 650 mgJump to med 650 mg, Oral, Every 6 hours PRN, mild pain (1-3), fever, For temp greater than 100.4 F (38 C), Starting on Marlys 03/04/25 at 0955, Maximum dose of acetaminophen is 4000 mg from all sources in 24 hours. Or acetaminophen (Tylenol) suppository 650 mgJump to med 650 mg, Rectal, Every 6 hours PRN, fever, For temp greater than 100.4 F (38 C), Starting on Marlys 03/04/25 at 0955, Administer if oral route cannot be used. Maximum dose of acetaminophen is 4000 mg from all sources in 24 hours. Group 2: ondansetron ODT (Zofran-ODT) disintegrating tablet 4 mgJump to med 4 mg, Oral, Every 8 hours PRN, nausea, vomiting, Starting on Marlys 03/04/25 at 0955, 1st Line. If inadequate response within 60 minutes, proceed to next-line agent or contact provider if no further options ordered. Patient should allow tablet to dissolve on tongue. Do not remove from blister pack until just before administering. Or ondansetron (Zofran) injection 4 mgJump to med 4 mg, IntraVENous, Every 6 hours PRN, nausea, vomiting, Starting on Marlys 03/04/25 at 0955, 1st Line. Give IV if patient is unable to take orally. If inadequate response within 60 minutes, proceed to next-line agent or contact provider if no further options ordered. Scheduled Medication Order 04/04/2025 04/05/2025 04/06/2025 sodium chloride 0.9% (NS) flush 5-40 mL 5-40 mL, IntraVENous, Every 12 hours, First dose on Sat04/06/25 at 0900, Preprocedure, For Line Patency: Peripheral IV = 5 mL; Midline or Central Line = 10 mL/lumen. If following IV push medication, administer flush at same rate as the IV push. Flush volume is determined by type of infusion therapy being given. For non-viscous solutions use: Peripheral IV = 5 mL Midline or Central Line = 10 mL/lumen For viscous solutions (i.e. blood components, parenteral nutrition, contrast media, or after obtaining blood sample) use: Peripheral IV = 10 mL Midline or Central Line = 20 mL/lumen 0900 (Canceled Entry - Provider: Automatic Discharge Provider - Comment: Automatically canceled at discontinue of medication order) PRN Medication Order 04/04/2025 04/05/2025 04/06/2025 fentaNYL (Sublimaze) injection (CANCELED) IntraVENous, As needed, Starting on e 04/06/25 at 1059, Intraprocedure 1059 (Given - Provid er: Shilpa Jackson MD) heparin injection (CANCELED) IntraVENous, As needed, Starting on e 04/06/25 at 1104, Intraprocedure 1104 (Given - Provid er: Altagracia Colbert RN) iopamidol (Isovue-300) 61 % injection (CANCELED) As needed, Starting on e 04/06/25 at 1113, Intraprocedure 1113 (Given - Provid er: Shilpa Jackson MD) lidocaine (Xylocaine) 1 % injection (CANCELED) As needed, Starting on e 04/06/25 at 1058, Intraprocedure 1058 (Given - Provid er: Shilpa Jackson MD) midazolam (Versed) injection (CANCELED) IntraVENous, As needed, Starting on e 04/06/25 at 1059, Intraprocedure 1059 (Given - Provid er: Shilpa Jackson MD) NITROGLYCERIN 100 MCG / ML IN D5W VIAL FOR INTRA-OP/INTRAPROCEDURE USE (CANCELED) As needed, Starting on e 04/06/25 at 1103, Intraprocedure 1103 (Given - Provid er: Shilpa Jackson MD) sodium chloride 0.9% (NS) flush 5-40 mL 5-40 mL, IntraVENous, PRN, line care, After every IV line use, Starting on Sat04/06/25 at 0846, Preprocedure, For Line Patency: Peripheral IV = 5 mL; Midline or Central Line = 10 mL/lumen. If following IV push medication, administer flush at same rate as the IV push. Flush volume is determined by type of infusion therapy being given. For non-viscous solutions use: Peripheral IV = 5 mL Midline or Central Line = 10 mL/lumen For viscous solutions (i.e. blood components, parenteral nutrition, contrast media, or after obtaining blood sample) use: Peripheral IV = 10 mL Midline or Central Line = 20 mL/lumen verapamil (Isoptin) injection (CANCELED) As needed, Starting on Sat04/06/25 at 1103, Intraprocedure 1103 (Given - Provid er: Shilpa Jackson MD) Scheduled Medication Order 05/01/2025 05/02/2025 05/03/2025 acetaminophen (Tylenol) tablet 1,000 mg 1,000 mg, Oral, Every 8 hours, First dose on Sat04/28/25 at 1315, [facility] 0615 (Given - Provider: Amy Duval RN)1245 (Given - Provider: Shirley Olmos RN)2101 (Given - Provider: Nini Bhat, RN) 0547 (Given - Provider: Nini Bhat RN)135 (Given - Provider: Shirley Olmos RN)2115 (Given - Provider: Shila Dong RN) 0426 (Given - Provider: Shila Dong RN)1233 (Given - Provider: Stephy Wilkinson, MARYA) amiodarone (Pacerone) tablet 400 mg 400 mg, Oral, 2 times daily, First dose on Sat05/02/25 at 2100, For 14 days 2114 (Given - Provider: Shila Dong RN) 08 (Given - Provider: Stephy Wilkinson, MARYA) aspirin EC tablet 81 mg 81 mg, Oral, Daily, First dose on Marlys 04/29/25 at 0900, Recovery [facility] On [facility], Do not crush, chew, or split. 0815 (Given - Provider: Shirley Olmos RN) 0823 (Given - Provider: Shirley Olmos RN) 0821 (Given - Provider: Stephy Wilkinson, MARYA) atorvastatin (Lipitor) tablet 80 mg 80 mg, Oral, Nightly, First dose on Marlys 04/29/25 at 2100, [facility] On Unit 2101 (Given - Provider: Nini Bhat RN) 2114 (Given - Provider: Shila Dong RN) chlorhexidine (Hibiclens) 4 % solution Topical, Daily, First dose on Marlys 04/29/25 at 1400, [facility] On Unit 0616 (Given - Provider: Amy Duval RN - Comment: pt request)2107 (Given - Provider: Nini Bhat RN) 2115 (Not Given - Provider: Shila Dong RN - Reason: Patient/family refused) enoxaparin (Lovenox) syringe 40 mg 40 mg, SubCUTAneous, Every 24 hours scheduled (Daily), First dose on Sat04/30/25 at 0900, Indication of Use: Prophylaxis-DVT/PE, Indications: Prophylaxis of Venous Thromboembolism 0815 (Given - Provider: Shirley Olmos RN) 0823 (Given - Provider: Shirley Olmos RN) 08 (Given - Provider: Stephy Wilkinson, MARYA) furosemide (Lasix) injection 40 mg 40 mg, IntraVENous, Daily, First dose on Sat05/01/25 at 0930 1043 (Given - Provider: Larry Tran RN) 08 (Given - Provider: Shirley Olmos RN) 08 (Given - Provider: Stephy Wilkinson, MARYA) Lidocaine 4 % patch 1 patch 1 patch, Topical, Administer over 12 Hours, Daily, First dose on Sat04/28/25 at 1315, Recovery [facility] On Unit, Cut in half and place on both sides of the incision. Patch may remain in place for up to 12 hours in any 24 hour period. 0815 (Medication Applied - Provider: Shirley Olmos RN)2108 (Medication Removed - Provider: Nini Bhat RN) 822 (Medication Applied - Provider: Shirley Olmos RN)2115 (Medication Removed - Provider: Shila Dong RN) 820 (Medication Applied - Provider: Stephy Wilkinson, MARYA)141 (Due: Medication Removed - Provider: Automatic Discharge Provider - Comment: Time automatically adjusted from order being discontinued) melatonin tablet 5 mg 5 mg, Oral, Nightly, First dose (after last modification) on Marlys 04/29/25 at 2100 2102 (Given - Provider: Nini Bhat RN) 2114 (Given - Provider: Shila Dong RN) mupirocin (Bactroban) 2 % ointment () Nasal, 2 times daily, First dose on Sat04/28/25 at 1315, For 4 days, [facility] 0815 (Given - Provider: Shirley Olmos RN)2101 (Given - Provider: Nini Bhat RN) pantoprazole (ProtoNix) EC tablet 40 mg 40 mg, Oral, Daily before breakfast, First dose on Sat04/30/25 at 0600, Recovery [facility] On Unit, Do not crush, chew, or split. 0615 (Given - Provider: Amy Duval RN) 0547 (Given - Provider: Nini Bhat, RN) 0427 (Given - Provider: Shila Dong RN) polyethylene glycol (PEG) 3350 (Miralax) packet 17 g 17 g, Oral, Daily, First dose on Sat04/28/25 at 1315, Recovery [facility] On Unit, Bowel Regimen - for prevention of constipation. 0815 (Given - Provider: Sihrley Olmos RN) 0839 (Not Given - Provider: Shirley Olmos RN - Reason: Patient/family refused) 821 (Not Given - Provider: Stephy Wilkinson RN - Reason: Order parameters not met - Comment: BM 05/03) senna-docusate sodium (Senokot-S) 8.6-50 MG tablet 2 tablet 2 tablet, Oral, Nightly, First dose on Sat04/28/25 at 2100, Recovery [facility] On Unit, Bowel Regimen - for prevention of constipation. 2100 (Not Given - Provider: Nini Bhat RN - Reason: Patient/family refused) 2114 (Not Given - Provider: Shila Dong RN - Reason: Patient/family refused) sodium chloride 0.9% (NS) flush 5-40 mL 5-40 mL, IntraCATHeter, Every 8 hours, First dose on Sat04/28/25 at 1315, Recovery [facility] On Unit, For Line Patency: Peripheral IV = 5 mL; Midline or Central Line = 10 mL/lumen. If following IV push medication, administer flush at same rate as the IV push. Flush volume is determined by type of infusion therapy being given. For non-viscous solutions use: Peripheral IV = 5 mL Midline or Central Line = 10 mL/lumen For viscous solutions (i.e. blood components, parenteral nutrition, contrast media, or after obtaining blood sample) use: Peripheral IV = 10 mL Midline or Central Line = 20 mL/lumen 0625 (Given - Provider: Amy Duval, RN)1246 (Given - Provider: Shirley Olmos RN)2100 (Not Given - Provider: Nini Bhat RN - Reason: IV Fluids Infusing) 0548 (Not Given - Provider: Nini Bhat RN - Reason: IV Fluids Infusing)1342 (Not Given - Provider: Shirley Olmso RN - Reason: IV Fluids Infusing)2115 (Given - Provider: Shila Dong RN) 0427 (Given - Provider: Shila Dong RN)1233 (Given - Provider: Stephy Wilkinson RN) traZODone (Desyrel) tablet 50 mg 50 mg, Oral, Nightly, First dose on 05/01/25 at 2100 2102 (Given - Provider: Nini Bhat RN) 2114 (Not Given - Provider: Shila Dong RN - Reason: Patient/family refused) warfarin (Coumadin) tablet 3 mg (COMPLETED) 3 mg, Oral, Once Warfarin, On Sat05/02/25 at 1700, For 1 dose 1706 (Given - Provider: Shirley Olmos RN) warfarin (Coumadin) tablet 3 mg 3 mg, Oral, Once Warfarin, On 05/03/25 at 1700, For 1 dose warfarin (Coumadin) tablet 5 mg (COMPLETED) 5 mg, Oral, Once Warfarin, On 05/01/25 at 1700, For 1 dose 1654 (Given - Provider: Shirley Olmos RN) Continuous Medication Order 05/01/2025 05/02/2025 05/03/2025 amiodarone (Nexterone) 360 mg/200 mL (premix) (CANCELED) 0.5 mg/min (16.6667 mL/hr, rounded to 16.67 mL/hr), IntraVENous, Continuous, Starting on Sat04/30/25 at 0800, Use in-line filter. Use in-line filter. Give through central venous catheter whenever available. Premix 0042 (New Bag - Provider: Amy Duval RN)0615 (New Bag - Provider: Amy Duval RN)1043 (Rate/Dose Change - Provider: Larry Tran RN)1321 (New Bag - Provider: Shirley Olmos RN)2354 (New Bag - Provider: Nini Bhat RN) 1124 (Stopped - Provider: Shirley Olmos RN) PRN Medication Order 05/01/2025 05/02/2025 05/03/2025 albumin human 25 % IV solution 25 g 25 g, IntraVENous, at 60 mL/hr, As needed, fluid bolus challenge PRN: PAD below goal (18) and/or Low BP (less than 90 SBP and/or less than 60 MAP) and/or Low urine output (less than 30ml/hr) per hemodynamic goals, Starting on Sat04/28/25 at 1312, For 2 doses, Recovery [facility] On [facility], To be given in conjunction with PRN 250ml Lactate Ringer Bolus Use if hgb greater than 7.5 and PAD below goal (18) and/or Low BP (less than 90 SBP and/or less than 60 MAP) and/or Low urine output (less than 30ml/hr) per hemodynamic goals If hemodynamic goals unattained, proceed to second fluid bolus challenge If hgb less than 7.5 notify surgeon for orders. calcium gluconate 2000 mg in 100 mL IVPB premix 2,000 mg, IntraVENous, at 50 mL/hr, Administer over 2 Hours, PRN, ionized calcium less than 4.3, Starting on Sat04/28/25 at 1312, Recovery [facility] On Unit, Give 2000 mg for ionized calcium less than 4.3 premix bag dextrose 5 % infusion 100 mL/hr, IntraVENous, PRN, Blood sugar less than 70mg/dL, Starting on Sat04/28/25 at 1312, Recovery [facility] On Unit, Start infusion following administration of dextrose 50% or glucagon. dextrose 50 % solution 12.5 g 12.5 g, IntraVENous, PRN, low blood sugar, Blood glucose less than 70 mg/dL and patient NOT ALERT or NPO., Starting on Sat04/28/25 at 1312, Recovery [facility] On Unit, If patient does not respond within 5 minutes, repeat dose x1. Start D5W at 100 mL/hour until ordering provider can be reached. Repeat blood glucose in 15 minutes. If blood glucose is less than 70 mg/dL, repeat treatment and recheck blood glucose in 15 minutes x2. If using Glucostabilizer, dose as instructed per system. glucagon (human recombinant) injection 1 mg 1 mg, IntraMUSCular, PRN, low blood sugar, Blood glucose less than 70 mg/dL and patient NOT ALERT or NPO and does not have IV access., Starting on Sat04/28/25 at 1312, Recovery [facility] On Unit, After administration, attempt intravenous access and start D5W at 100 mL/hr. Repeat blood glucose in 15 minutes x2 and notify provider. glucose oral gel 15 g 15 g, Oral, As needed, low blood sugar, Starting on Sat04/28/25 at 1312, Recovery [facility] On Unit, If blood glucose less than 50 mg/dL and patient ALERT and NOT NPO, give 2 tubes glucose gel. If blood glucose less than 70 mg/dL and patient ALERT and NOT NPO, give 1 tube glucose gel. Repeat blood glucose in 15 minutes. If blood glucose is less than 70 mg/dL, repeat treatment and recheck blood glucose in 15 minutes x2 and notify provider. ipratropium-albuterol (Duo-Neb) 0.5-2.5 mg/3 mL nebulizer solution 3 mL 3 mL, Nebulization, 3 times daily PRN, wheezing, shortness of breath, Starting on Sat04/28/25 at 1312, Recovery & On Unit lactated ringers bolus 250 mL 250 mL, IntraVENous, at 124 mL/hr, Administer over 121 Minutes, Continuous PRN, fluid bolus challenge: lactated ringers bolus, Starting on Sat04/28/25 at 1312, Recovery [facility] On Unit, To be given in conjunction with PRN 25gm Albumin order Use if hgb greater than 7.5 and PAD below goal (18) and/or Low BP (less than 90 SBP and/or less than 60 MAP) and/or Low urine output (less than 30ml/hr) per hemodynamic goals If hemodynamic goals unattained, proceed to second fluid bolus challenge If hgb less than 7.5 notify surgeon for orders. magnesium hydroxide (Milk of Magnesia) 400 MG/5ML suspension 30 mL 30 mL, Oral, Daily PRN, constipation, Starting on Sat04/28/25 at 1312, Recovery [facility] On [facility], 1st line for treatment of constipation - give scheduled if no bowel movement in past 24 hours magnesium sulfate IVPB 4,000 mg(Linked Group 1) 4,000 mg, IntraVENous, at 25 mL/hr, Administer over 4 Hours, As needed, Per Magnesium Replacement Protocol, Starting on Sat04/28/25 at 1312, Recovery & On Unit, Mg Lab Replacement Action 1.4-1.6 2 gram IVPB x 1 doses 1.0-1.3 4 gram IVPB x 1 doses Less than 1.0 CALL PHYSICIAN and 4 gram IVPB x 1 doses Infuse at 1 gram/hr. Repeat Mag level next AM. Not for use in Patients with CrCl less than 30 mL/min. magnesium sulfate IVPB premix 2,000 mg(Linked Group 1) 2,000 mg, IntraVENous, at 25 mL/hr, Administer over 2 Hours, As needed, Per Magnesium Replacement Protocol, Starting on Sat04/28/25 at 1312, Recovery & On Unit, Mg Lab Replacement Action 1.4-1.6 2 gram IVPB x 1 doses 1.0-1.3 4 gram IVPB x 1 doses Less than 1.0 CALL PHYSICIAN and 4 gram IVPB x 1 doses Infuse at 1 gram/hr. Repeat Mag level next AM. Not for use in Patients with CrCl less than 30 mL/min. morphine injection 2 mg(Linked Group 2) 2 mg, IntraVENous, Every 2 hour PRN, moderate pain (4-6), Starting on Sat04/28/25 at 1312, Recovery [facility] On Unit, If oral and IV narcotics ordered, use oral first and only use IV if oral is ineffective or cannot take oral. Do Not give oral and IV within 1 hour of each other unless specifically ordered. morphine injection 4 mg(Linked Group 2) 4 mg, IntraVENous, Every 2 hour PRN, severe pain (7-10), Starting on Sat04/28/25 at 1312, Recovery [facility] On Unit, If oral and IV narcotics ordered, use oral first and only use IV if oral is ineffective or cannot take oral. Do Not give oral and IV within 1 hour of each other unless specifically ordered. naloxone (Narcan) injection 0.4 mg 0.4 mg, IntraVENous, Every 5 min PRN, opioid reversal, respiratory depression, Starting on Sat04/28/25 at 1704, +++ For RR <10, pinpoint pupils, over sedation for opioid reversal - MUST notify boom conveyor operator provider immediately after first dose, may give IM or SQ if no IV access +++ ondansetron (Zofran) injection 4 mg(Linked Group 3) 4 mg, IntraVENous, Every 6 hours PRN, nausea, vomiting, Starting on Sat04/28/25 at 1312, Recovery [facility] On Unit, 1st Line. Give IV if patient is unable to take orally. If inadequate response within 60 minutes, proceed to next-line agent or contact provider if no further options ordered. ondansetron ODT (Zofran-ODT) disintegrating tablet 4 mg(Linked Group 3) 4 mg, Oral, Every 8 hours PRN, nausea, vomiting, Starting on Sat04/28/25 at 1312, Recovery [facility] On Unit, 1st Line. If inadequate response within 60 minutes, proceed to next-line agent or contact provider if no further options ordered. Patient should allow tablet to dissolve on tongue. Do not remove from blister pack until just before administering. oxyCODONE (Roxicodone) immediate release tablet 10 mg(Linked Group 4) 10 mg, Oral, Every 4 hours PRN, severe pain (7-10), Starting on Sat04/28/25 at 1702, [facility] Unit 0315 (See Alternative - Provider: Amy Duval RN)1950 (See Alternative - Provider: Nini Bhat, RN) oxyCODONE (Roxicodone) immediate release tablet 5 mg(Linked Group 4) 5 mg, Oral, Every 4 hours PRN, moderate pain (4-6), Starting on Sat04/28/25 at 1702, [facility] On Unit 0315 (Given - Provider: Amy Duval RN)1950 (Given - Provider: Nini Bhat, MARYA) potassium chloride 40 mEq in NS 500 mL IVPB (premix)(Linked Group 5) 40 mEq, IntraVENous, at 125 mL/hr, Administer over 4 Hours, 3 times daily PRN, hypokalemia, Starting on Sat04/28/25 at 1312, Recovery [facility] On Unit, For Peripheral Line Use. K Lab Replacement Action 3.1-3.5 20 mEq IVPB x 1 doses 2.7-3.0 40 mEq IVPB x 1 doses less than 2.7 CALL PROVIDER and administer 40 mEq IVPB x 1 dose Infuse at 10 mEq/hr Repeat Potassium lab 1 hour after administration. Protocol not for use in Patients with CrCl less than 30mL/min potassium chloride CR (Klor-Con M10) ER tablet 20 mEq 20 mEq, Oral, PRN, Hypokalemia, Starting on Marlys 04/29/25 at 0000, Recovery [facility] On Unit, If patient is intubated or not tolerating PO use PRN IV replacement protocol Potassium level Dose LESS than 3.0 = Give 20 mEq x 3 doses 3.0-3.6 = Give 20 mEq x 2 doses Recheck potassium level 2 hour after replacement given, place order for lab under [place] If potassium level LESS than 3 after 1st replacement: Call surgeon. Do not crush or break. Do not crush or chew. 0821 (Given - Provid er: Stephy Wilkinson RN)0822 (Given - Provider: Stephy Wilkinson RN) Potassium Chloride in NaCl IVPB 20 mEq(Linked Group 5) 20 mEq, IntraVENous, Administer over 2 Hours, Every 8 hours PRN, hypokalemia, Starting on Sat04/28/25 at 1312, Recovery [facility] On Unit, For Peripheral Line Use K Lab Replacement Action 3.1-3.5 20 mEq IVPB x 1 doses 2.7-3.0 40 mEq IVPB x 1 doses less than 2.7 CALL PROVIDER and administer 40 mEq IVPB x 1 dose Infuse at 10 mEq/hr Repeat Potassium lab 1 hour after administration. Protocol not for use in Patients with CrCl less than 30mL/min potassium chloride IVPB 20 mEq(Linked Group 5) 20 mEq, IntraVENous, at 50 mL/hr, Administer over 1 Hours, 3 times daily PRN, hypokalemia, Starting on Sat04/28/25 at 1312, Recovery [facility] On Unit, For Central Line Use Only K Lab Replacement Action 3.1-3.5 20 mEq IVPB x 2 doses 2.7-3.0 20 mEq IVPB x 2 doses (40 mEq Total) less than 2.7 CALL PROVIDER and administer 20 mEq IVPB x 2 doses (40 mEq Total) Infuse at 20 mEq/hr Repeat Potassium lab 1 hour after final administration. Protocol not for use in Patients with CrCl less than 30mL/min For central line administration only. sodium chloride 0.9% (NS) flush 5-40 mL 5-40 mL, IntraVENous, PRN, line care, before and after blood draws, infusion, or medication administration, Starting on Sat04/28/25 at 1312, Recovery [facility] On Unit, For Line Patency: Peripheral IV = 5 mL; Midline or Central Line = 10 mL/lumen. If following IV push medication, administer flush at same rate as the IV push. Flush volume is determined by type of infusion therapy being given. For non-viscous solutions use: Peripheral IV = 5 mL Midline or Central Line = 10 mL/lumen For viscous solutions (i.e. blood components, parenteral nutrition, contrast media, or after obtaining blood sample) use: Peripheral IV = 10 mL Midline or Central Line = 20 mL/lumen Linked Groups Order Group 1: magnesium sulfate IVPB premix 2,000 mgJump to med 2,000 mg, IntraVENous, at 25 mL/hr, Administer over 2 Hours, As needed, Per Magnesium Replacement Protocol, Starting on Sat04/28/25 at 1312, Recovery & On Unit, Mg Lab Replacement Action 1.4-1.6 2 gram IVPB x 1 doses 1.0-1.3 4 gram IVPB x 1 doses Less than 1.0 CALL PHYSICIAN and 4 gram IVPB x 1 doses Infuse at 1 gram/hr. Repeat Mag level next AM. Not for use in Patients with CrCl less than 30 mL/min. Or magnesium sulfate IVPB 4,000 mgJump to med 4,000 mg, IntraVENous, at 25 mL/hr, Administer over 4 Hours, As needed, Per Magnesium Replacement Protocol, Starting on Sat04/28/25 at 1312, Recovery & On Unit, Mg Lab Replacement Action 1.4-1.6 2 gram IVPB x 1 doses 1.0-1.3 4 gram IVPB x 1 doses Less than 1.0 CALL PHYSICIAN and 4 gram IVPB x 1 doses Infuse at 1 gram/hr. Repeat Mag level next AM. Not for use in Patients with CrCl less than 30 mL/min. Group 2: morphine injection 2 mgJump to med 2 mg, IntraVENous, Every 2 hour PRN, moderate pain (4-6), Starting on Sat04/28/25 at 1312, Recovery & On Unit, If oral and IV narcotics ordered, use oral first and only use IV if oral is ineffective or cannot take oral. Do Not give oral and IV within 1 hour of each other unless specifically ordered. Or morphine injection 4 mgJump to med 4 mg, IntraVENous, Every 2 hour PRN, severe pain (7-10), Starting on Sat04/28/25 at 1312, Recovery & On Unit, If oral and IV narcotics ordered, use oral first and only use IV if oral is ineffective or cannot take oral. Do Not give oral and IV within 1 hour of each other unless specifically ordered. Group 3: ondansetron ODT (Zofran-ODT) disintegrating tablet 4 mgJump to med 4 mg, Oral, Every 8 hours PRN, nausea, vomiting, Starting on Sat04/28/25 at 1312, Recovery & On Unit, 1st Line. If inadequate response within 60 minutes, proceed to next-line agent or contact provider if no further options ordered. Patient should allow tablet to dissolve on tongue. Do not remove from blister pack until just before administering. Or ondansetron (Zofran) injection 4 mgJump to med 4 mg, IntraVENous, Every 6 hours PRN, nausea, vomiting, Starting on Sat04/28/25 at 1312, Recovery & On Unit, 1st Line. Give IV if patient is unable to take orally. If inadequate response within 60 minutes, proceed to next-line agent or contact provider if no further options ordered. Group 4: oxyCODONE (Roxicodone) immediate release tablet 5 mgJump to med 5 mg, Oral, Every 4 hours PRN, moderate pain (4-6), Starting on Sat04/28/25 at 1702, Recovery & On Unit Or oxyCODONE (Roxicodone) immediate release tablet 10 mgJump to med 10 mg, Oral, Every 4 hours PRN, severe pain (7-10), Starting on Sat04/28/25 at 1702, Recovery & On Unit Group 5: potassium chloride IVPB 20 mEqJump to med 20 mEq, IntraVENous, at 50 mL/hr, Administer over 1 Hours, 3 times daily PRN, hypokalemia, Starting on Sat04/28/25 at 1312, Recovery & On Unit, For Central Line Use Only K Lab Replacement Action 3.1-3.5 20 mEq IVPB x 2 doses 2.7-3.0 20 mEq IVPB x 2 doses (40 mEq Total) less than 2.7 CALL PROVIDER and administer 20 mEq IVPB x 2 doses (40 mEq Total) Infuse at 20 mEq/hr Repeat Potassium lab 1 hour after final administration. Protocol not for use in Patients with CrCl less than 30mL/min For central line administration only. Or Potassium Chloride in NaCl IVPB 20 mEqJump to med 20 mEq, IntraVENous, Administer over 2 Hours, Every 8 hours PRN, hypokalemia, Starting on Sat04/28/25 at 1312, Recovery & On Unit, For Peripheral Line Use K Lab Replacement Action 3.1-3.5 20 mEq IVPB x 1 doses 2.7-3.0 40 mEq IVPB x 1 doses less than 2.7 CALL PROVIDER and administer 40 mEq IVPB x 1 dose Infuse at 10 mEq/hr Repeat Potassium lab 1 hour after administration. Protocol not for use in Patients with CrCl less than 30mL/min Or potassium chloride 40 mEq in NS 500 mL IVPB (premix)Jump to med 40 mEq, IntraVENous, at 125 mL/hr, Administer over 4 Hours, 3 times daily PRN, hypokalemia, Starting on Sat04/28/25 at 1312, Recovery & On Unit, For Peripheral Line Use. K Lab Replacement Action 3.1-3.5 20 mEq IVPB x 1 doses 2.7-3.0 40 mEq IVPB x 1 doses less than 2.7 CALL PROVIDER and administer 40 mEq IVPB x 1 dose Infuse at 10 mEq/hr Repeat Potassium lab 1 hour after administration. Protocol not for use in Patients with CrCl less than 30mL/min Care Teams (unrecognized sec tion and content) [employer] Blind Worker Relationship Specialty Start Date End Date Asher Jesus PA-C [address] [place] [phone] PCP - General 03/30/25 [employer] Blind Worker Relationship Specialty Start Date End Date Asher Jesus PA-C [address] [place] [phone] PCP - General 03/30/25 [employer] Blind Worker Relationship Specialty Start Date End Date Asher Jesus PA-C [address] [place] [phone] PCP - General 03/30/25 [employer]ian Blind Worker Relationship Specialty Start Date End Date Asher Jesus PA-C [address] [place] [phone] PCP - General 03/30/25 Venetian Blind Worker Relationship Specialty Start Date End Date Asher Jesus PA-C [address] [facility] [address] [place], [phone] PCP - General 03/30/25 Venetian Blind Worker Relationship Specialty Start Date End Date Asher Jesus PA-C [address] [facility] [address] [place] [phone] PCP - General 03/30/25 Venetian Blind Worker Relationship Specialty Start Date End Date Asher Jesus PA-C [address] [facility] [place] [phone] PCP - General 03/30/25 Venetian Blind Worker Relationship Specialty Start Date End Date Asher Jesus PA-C [address] [facility] [place] [phone] PCP - General 03/30/25 Venetian Blind Worker Relationship Specialty Start Date End Date Asher Jesus PA-C [address] [address] [place] [phone] PCP - General 03/30/25 Venetian Blind Worker Relationship Specialty Start Date End Date Asher Jesus PA-C [address] [address] [place] [phone] PCP - General 03/30/25 Venetian Blind Worker Relationship Specialty Start Date End Date Asher Jesus PA-C [address] [facility] [address] [place] [phone] PCP - General 03/30/25 Venetian Blind Worker Relationship Specialty Start Date End Date Asher Jesus PA-C [address] [place] [phone] PCP - General 03/30/25 [employer]ian Blind Worker Relationship Specialty Start Date End Date Asher Jesus PA-C [address] [facility] [place] [phone] PCP - General 03/30/25 [employer]ian Blind Worker Relationship Specialty Start Date End Date Ann MarieAsher guevara, PA-C [address] [facility] [place] [phone] PCP - General 03/30/25 [employer]ian Blind Worker Relationship Specialty Start Date End Date Asher Jesus, PA-C [address] [place] [phone] PCP - General 03/30/25 [employer]ian Blind Worker Relationship Specialty Start Date End Date Ann Marie, Luke, PA-C [address] [facility] [place] [phone] PCP - General 03/30/25 [employer]ian Blind Worker Relationship Specialty Start Date End Date Ann MarieAsher guevara, PA-C [address] [facility] [place] [phone] PCP - General 03/30/25 Team Status: Active Member Role/Relationship Status Dates JOSE Jj Primary Care Provider Active Team Status: Inactive Member Role/Relationship Status Dates JOSE jJ Primary Care Provider Active Start: June 11, 2025 End: June 11, 2025 ARTEMIO GOMEZ Attending Provider Active Start: June 11, 2025 End: June 11, 2025 ARTEMIO GOMEZ Referring Provider Active Start: June 11, 2025 End: June 11, 2025 [employer]ian Blind Worker Relationship Specialty Start Date End Date Asher Jesus, PA-C [address] [place] [phone] PCP - General 03/30/25 Team Status: Inactive Member Role/Relationship Status Dates JOSE Jj Primary Care Provider Active Start: June 28, 2025 End: July 01, 2025 ARTEMIO GOMEZ Attending Provider Active Start: June 28, 2025 End: July 01, 2025 ARTEMIO GOMEZ Referring Provider Active Start: June 28, 2025 End: July 01, 2025 Team Status: Inactive Member Role/Relationship Status Dates JOSE Jj Primary Care Provider Active Start: July 27, 2025 End: July 27, 2025 JOSE Jj Referring Provider Active Start: July 27, 2025 End: July 27, 2025 Dr. Yony Soto MD Attending Provider Active Start: July 27, 2025 End: July 27, 2025 Goals (unrecognized section and content) Goals may be documented in a n alternate sectionGoals may be documented in an alternate sectionGoals may be documented in an alternate section FOR RECORDS PERTAINING TO PATIENTS WHO ARE OR HAVE BEEN ENROLLED IN A CHEMICAL DEPENDENCY/SUBSTANCEABUSE PROGRAM, SOME INFORMATION MAY BE OMITTED. This clinical summary was aggregated from multiple sources. Caution should be exercised in using it in the provision of clinical care. This summary normalizes information from multiple sources, and as a consequence, information in this document may materially change the coding, format and clinical context of patient data. In addition, data may be omitted in some cases. CLINICAL DECISIONS SHOULD BE BASED ON THE PRIMARY CLINICAL RECORDS. [facility] [employer] provides no warranty or guarantee of the accuracy or completeness of information in this document.
== END | disposition home or self-care (01) ==
LOC: CVS 07:04
PROVIDERS: PCP Physician Assistant; Referring Provider Internal Medicine Cardiovascular Disease; Visit Provider Internal Medicine Cardiovascular Disease
DX: I25.10 Atherosclerotic heart disease of native coronary artery without angina pectoris (principal); Q23.81 Bicuspid aortic valve
CPT/HCPCS: 93306

== ENCOUNTER 2025-09-28 16:38 | Emergency (ER) | payer OTHER, SELFPAY ==
[2025-06-11 15:04] VITALS: BMI 37.1
[2025-09-28 16:39] VITALS: BP 152/84; PULSE 60; RESP 16; TEMP 37; O2SAT 98; BMI 31.1
--- NOTE | 2025-09-28 16:59 | EDS_ITS ---
HPI History of Present Illness Chief Complaint: Palpitations Narrative Narrative: 55-year-old male past medical history of remote mechanical aortic valve replacement secondary to bicuspid aortic valve presents with palpitations that he has had for months. He relates history that [facility] where they changed his aortic valve to a mechanical valve. He takes Coumadin for this and has only missed 1 dose in the last few months. He had surgery back in April. He admits that ever since then he has intermittently had heart palpitations. He can feel his heart skipping a beat, then pausing then starting again. He quit drinking caffeinated coffee 2 weeks ago because he thought that was related to that. He presents today because yesterday he exerted himself and work harder than usual. It is when he rests at night he can hear his mechanical valve, and he can hear it beating irregularly. He states when this happens, sometimes he will get a sharp pain in his chest or discomfort that is very fleeting. He presents mainly because of the heart palpitations. He went to his primary care provider in [place] today where he had an EKG performed, then it was suggested that he come to the emergency department for further evaluation. [facility] Medical History Bicuspid aortic valve CAD (coronary atherosclerotic disease) Postoperative atrial fibrillation Ischemic stroke Morbid obesity Hyperlipidemia Hypertension Chronic diastolic CHF (congestive heart failure), NYHA class 3 Severe aortic stenosis Home Medications ?Medication ?Instructions ?Recorded ?Last Taken ?Type aspirin 81 mg tablet,delayed 81 mg PO QDAY 07/19/25 Un known History release (Adult Aspirin Regimen) losartan 50 mg-hydrochlorothiazide 1 tab PO QDAY #30 t abs 07/27/25 Unknown Rx 12.5 mg tablet warfarin 3 mg tablet mg PO DAILY 07/27/25 Unknown History atorvastatin 40 mg tablet (Lipitor) 40 mg PO QDAY #90 tabs 08/04/25 Unknown Rx Allergy/AdvReac Type Severity Reaction Status Date / Time No Known Allergies Allergy Verified 09/28/25 16:44 Family History Mother Heart disease Grandmother Heart disease Grandfather Heart disease Surgical History History of surgical closure of patent foramen ovale (PFO) History of surgery on arm History of cardiac catheterization History of mechanical aortic valve replacement Social History Smoking Status: Never smoker alcohol intake: never substance use type: does not use caffeine: Yes ROS ROS ED ROS Narrative Review of systems is positive for heart palpitations. This has been ongoing intermittently for months. According to the patient it seems to be worse after he exerts himself during the day, more so at night. He has fleeting chest pain accompanying this. Denies any other symptoms. No fevers or chills, no nausea or vomiting, no shortness of breath. EXAM Physical Exam Narrative Exam Narrative: Afebrile. Vital signs noted. Nontoxic-appearing. Cardiovascular examination reveals a regular rate and rhythm with occasional extrasystoles. Lungs are clear to auscultation bilaterally. Abdomen is soft and nontender with positive bowel sounds. No guarding or rebound. Neurological examination nonfocal, nonlateralizing. No appreciable pedal edema bilaterally. Const Vital Signs: 09/28/25 16:39 09/28/25 17:11 09/28/25 17:11 Temperature 98.6 F Temperature Source Temporal Pulse Rate 60 Respiratory Rate 16 Respiratory Effort Normal Blood Pressure 152/84 H Blood Pressure Mean 106 Pulse Ox 98 Oxygen Delivery Method Room Air Room Air 09/28/25 17:38 09/28/25 18:00 09/28/25 18:47 Temperature Temperature Source Pulse Rate 86 88 84 Respiratory Rate 16 Respiratory Effort Blood Pressure 145/79 H 149/81 H 153/77 H Blood Pressure Mean 101 99 102 Pulse Ox Oxygen Delivery Method MDM MDM MDM Narrative Medical decision making narrative: Differential diagnosis includes but not limited to atrial fibrillation versus PVCs versus PACs versus other cardiac dysrhythmia. I have low suspicion for ACS for his chest discomfort as it is very fleeting and happens when he feels his heart palpitating. Comprehensive workup was pursued. EKG was obtained and interpreted by myself independently as normal sinus rhythm at 96 bpm with PVCs. No acute ST changes. No STEMI. I reviewed his laboratory work and he has a normal white count of 11.0 with hemoglobin normal at 13.4, hematocrit 40.8, platelet count normal at 277. INR is therapeutic at 2.3. Thus, I have low suspicion for a pulmonary embolism. Review of his BMP shows glucose elevated at 102 with normal sodium, potassium, and chloride, and a normal anion gap. Initial high-sensitivity troponin is 22 with repeat at 2 hours being 25. I feel they are flat, and additionally he has had this ongoing for months and very intermittent. I discussed with him performing a third troponin at 4 hours but he declines and is motivated for discharge. On my independent interpretation of his chest x-ray, there is no acute process, no consolidation. I do not feel antibiotics are indicated. I reviewed the radiology report which confirms my independent interpretation. At this point in time, I do feel he is probably having PVCs which is causing his heart palpitations and the feeling that his heart skipping a beat and pausing as well. I feel he can be discharged to follow-up with his radiation control health physicist, Dr. Soto, he will continue not to use caffeinated products. Return instructions to the emergency department were reviewed. Disposition is discharged home in stable condition. History & Record Review Discussion w/independent historian: Patient Additional record(s) reviewed:: No prior records (No prior ED visits) Lab Data Attestation: I reviewed the patient's lab results. Labs: Laboratory Results - last 24 hr 09/28/25 09/28/25 16:54 18:45 WBC 11.0 RBC 5.01 Hgb 13.4 Hct 40.8 MCV 81.4 MCH 26.7 L MCHC 32.8 RDW Std Deviation 46.1 H RDW Coeff of Chantell 15.5 H Plt Count 277 MPV 10.2 Immature Gran % (Auto) 0.400 Neut % (Auto) 73.4 H Lymph % (Auto) 16.3 L Whitley % (Auto) 9.1 Eos % (Auto) 0.4 Baso % (Auto) 0.4 Absolute Neuts (auto) 8.1 H Absolute Lymphs (auto) 1.79 Nucleated RBC % 0 PT 25.7 H INR 2.3 Sodium 138 Potassium 3.8 Chloride 103 Carbon Dioxide 26.1 Anion Gap 10 BUN 14 Creatinine 0.92 Estim Creat Clear Calc 104.22 Est GFR (MDRD) Non-Af 97 BUN/Creatinine Ratio 14.9 Glucose 102 H Calcium 9.2 Troponin T High Sens 22 Troponin T Hi Sens 2 Hr 25 H Radiography Diagnostic Testing: Clinical Impression(s) from Imaging Studies Chest X-Ray 09/28/25 17:00 IMPRESSION: No focal consolidations. Reading Location: [facility] Discharge Plan Triage Chief Complaint: Palpitations ED Provider: Dwayne Olivas Dx/Rx/DC Orders Clinical Impression: Palpitations, Premature ventricular contraction on electrocardiogram, Chest pain Instructions: PVCs, ED Chest Pain, Uncertain Cause, ED Heart Palpitations Prescriptions: No Action aspirin [Adult Aspirin Regimen] 81 mg tablet,delayed release (DR/EC) 81 mg PO QDAY warfarin 3 mg tablet PO DAILY losartan-hydrochlorothiazide 50-12.5 mg tablet 1 tab PO QDAY Qty: 30 11RF atorvastatin [Lipitor] 40 mg tablet 40 mg PO QDAY Qty: 90 3RF Primary Care Provider: Asher Lewis Referrals: Yony Soto MD [Med Staff - Active Staff, Cardiology] - 3-5 Days if not improving Asher Lewis PA [Primary Care Provider, Urgent Care] Activity Restrictions/Additional Instructions: Follow-up with your radiation control health physicist. You may need to wear a Holter monitor. Avoid caffeinated products. Return with increased chest pain, new or worsening symptoms. Print Language: Tajik Disposition Disposition: Home, Self Care
--- NOTE | 2025-09-28 17:00 | RAD_ITS ---
PROCEDURE: CHEST 1 VIEW (PORTABLE) 09/28/2025 REASON FOR EXAM: CHEST PAIN TECHNIQUE: Frontal view of the chest. FINDINGS: No focal consolidation. No pleural effusion or pneumothorax. Cardiac silhouette is within normal limits. No acute fractures. Median sternotomy wires. RAD/Chest 1 View (Portable) IMPRESSION: No focal consolidations. Reading Location: [id number]
[2025-09-28 17:10] LABS: Hematocrit 40.8 % (40-54); Hemoglobin 13.4 g/dL (13.0-16.5); Immature Granulocytes Count 0.040 X10^3/uL (0.0-0.0); Mean Corp Hgb Conc 32.8 g/dL (32-36); Mean Corpuscular Volume 81.4 fL (80-94); Mean Platelet Vol. 10.2 fl (6.2-12.0); NRBC Flagged by Analyzer 0 % (0-5); Platelet Count 277 K/mm3 (150-450); RBC Distribution Width CV 15.5 % (11.6-14.6); RBC Distribution Width SD 46.1 fl (35.1-43.9); Red Blood Count 5.01 M/mm3 (4.6-6.2); White Blood Count 11.0 K/mm3 (4.4-11.0)
[2025-09-28 17:32] LABS: Anion Gap 10 (5-15); BUN 14 mg/dL (4-19); BUN/Creat Ratio 14.9 RATIO (10-20); Calcium,Total 9.2 mg/dL (7.6-11.0); Carbon Dioxide 26.1 mmol/L (21.0-32.0); Chloride 103 mmol/L (98-108); Estimated Creatinine Clearance 104.22 ml/min (50-250); Glucose 102 mg/dL (70-99); Potassium 3.8 mmol/L (3.3-5.1); Troponin T High Sensitivity 22 ng/L (<=22)
[2025-09-28 17:35] LABS: Prothrombin Time (Protime)PT. 25.7 SECONDS (11.7-14.9)
[2025-09-28 17:38] VITALS: BP 145/79; PULSE 86
[2025-09-28 18:00] VITALS: BP 149/81; PULSE 88; RESP 16
[2025-09-28 18:47] VITALS: BP 153/77; PULSE 84
[2025-09-28 19:00] VITALS: BP 143/76; PULSE 85; RESP 17
[2025-09-28 19:40] LABS: Troponin T High Sens 2 HR 25 ng/L (<=22)
[2025-09-28 20:00] VITALS: BP 158/90; PULSE 85; RESP 13; TEMP 37.2; O2SAT 96
== END 2025-09-28 20:19 | disposition home or self-care (01) ==
PROVIDERS: Emergency Provider Emergency Medicine; PCP Physician Assistant; Visit Provider Emergency Medicine
DX: R00.2 Palpitations (principal); I11.0 Hypertensive heart disease with heart failure; I50.32 Chronic diastolic (congestive) heart failure; E78.5 Hyperlipidemia, unspecified; I25.10 Atherosclerotic heart disease of native coronary artery without angina pectoris; I49.3 Ventricular premature depolarization; Z79.01 Long term (current) use of anticoagulants; R07.9 Chest pain, unspecified; Z95.2 Presence of prosthetic heart valve
CPT/HCPCS: 71045; 80048; 84484; 85025; 85610; 93005; 99284; A4216